=== PATIENT | female | born 1955 | race Caucasian/White ===

== ENCOUNTER 2018-11-27 14:14 | Observation (INO) ==
--- NOTE | 2018-11-27 14:17 | Emergency Department Note ---
ED Disposition Clinical Impression: Non-STEMI (non-ST elevated myocardial infarction) Disposition: Admitted As Inpatient Condition on Discharge: Fair Referrals: Provider,Referral, [Primary Care Provider] - - Critical Care Critical Care Time: Yes Attestation: On , the high probability of a clinically significant, sudden or life threatening deterioration of the following system(s) required my full and direct attention, intervention and personal management. The time I documented below is in addition to time spent performing reported procedures but includes the following listed in this critical care notation. Total Critical Care Time: 30 Vital system(s) involved:: Circulatory Failure My critical care processes included: Assessment & monitoring of V/S, Initial and Re-exams, Data Review/Interpretation, Coordinating Care, Medication Orders and management, Documentation Medical Decision Making - George Inquiry Pt receiving controlled substance: No Vital Signs: 11/27/18 14:15 11/27/18 14:27 11/27/18 14:36 Temperature 98.2 F Temperature Source Oral Pulse Rate [Right Radial] 95 H 95 H 91 H Respiratory Rate 18 18 18 Blood Pressure [Right Arm] 203/98 H 210/98 H 183/99 H Blood Pressure Mean [Right Arm] 133 135 127 Blood Pressure Source [Right Arm] Automatic Cuff Automatic Cuff Automatic Cuff Blood Pressure Position [Right Arm] Sitting Sitting Sitting 02 Sat by Pulse Oximetry 98 99 96 Oxygen Delivery Method Room Air Room Air Room Air 11/27/18 14:42 11/27/18 14:48 11/27/18 14:53 Temperature Temperature Source Pulse Rate [Right Radial] 94 H 92 H 92 H Respiratory Rate 18 18 18 Blood Pressure [Right Arm] 163/84 H 155/94 H 138/77 Blood Pressure Mean [Right Arm] 110 114 97 Blood Pressure Source [Right Arm] Automatic Cuff Automatic Cuff Automatic Cuff Blood Pressure Position [Right Arm] Sitting Sitting Sitting 02 Sat by Pulse Oximetry 96 96 96 Oxygen Delivery Method Room Air Room Air Room Air 11/27/18 15:14 Temperature Temperature Source Pulse Rate [Right Radial] 85 Respiratory Rate 18 Blood Pressure [Right Arm] 139/75 Blood Pressure Mean [Right Arm] 96 Blood Pressure Source [Right Arm] Automatic Cuff Blood Pressure Position [Right Arm] Sitting 02 Sat by Pulse Oximetry 96 Oxygen Delivery Method Room Air - Lab Data Lab Results 11/27/18 14:20: WBC 10.0, RBC 3.85 L, Hgb 11.7 L, Hct 34.3 L, MCV 89.1, MCH 30 .3, MCHC 34.0, RDW 12.7, Plt Count 323, MPV 7.7, Neut % (Auto) 60.5, Lymph % (Auto) 32.8, [place] % (Auto) 5.0, Eos % (Auto) 1.0, Baso % (Auto) 0.7, Neut # (Auto) 6.1, Lymph # (Auto) 3.3, [place] # (Auto) 0.5, Eos # (Auto) 0.1, Baso # (Auto) 0.1 11/27/18 14:20: Sodium 137, Potassium 4.5, Chloride 102, Carbon Dioxide 24, Anion Gap 15.5 H, BUN 25 H, Creatinine 1.83 H, Estimated Creat Clear 34, Estimated GFR 28 L, Est GFR ( Amer) 34 L, Glucose 297 H, Calcium 9.0, Troponin I 0.09 H Result diagrams: 11/27/18 14:20 11/27/18 14:20 Orders (Tests/Meds): ED MEDICATIONS Generic Name Dose Route Start Last Admin Trade Name Freq PRN Reason Stop Dose Admin Diphenhydramine HCl 50 mg 11/27/18 15:34 Benadryl 50mg/1ml Vial IV 11/27/18 15:35 ONCE ONE Sodium Chloride 1,000 mls @ 25 mls/hr 11/27/18 15:45 Sod Chlor 0.9% 1000ml Bag IV 12/27/18 15:44 .Q25H DEXTER Nitroglycerin 0.4 mg 11/27/18 14:26 11/27/18 14:48 Nitrostat 0.4mg Sl Tablet SL 11/28/18 14:26 0.4 mg Q5MINP PRN Administration Chest Pain Discontinued Medications Generic Name Dose Route Start Last Admin Trade Name Freq PRN Reason Stop Dose Admin Nitroglycerin 1 gm 11/27/18 15:15 11/27/18 15:27 Nitroglycerin 1 Inch Oint Udp TD 11/27/18 15:16 1 gm ONCE ONE Administration - Radiology Data #1 Image(s): Chest Image Reviewed: Yes I reviewed the patient's radiology image Preliminary Findings: Normal/NAD - ECG Data Tracing #1 EKG interpreted by Bennett Mclean MD: Rhythm: sinus Rate: 101 [place]: Left Ectopy: none Conduction: normal ST Segment Changes: Nonspecific T Wave Changes: Nonspecific Q Waves: Septal No evidence of acute ischemia or injury No prior EKGs available for comparison Prior EKG reading from ED visit 2008. No tracing available to review: EKG NSR, LAD Q'S V1,V2 C/W PREVIOUS ANTERIOR DE OF 01-10-08 - Physician Consults Physician Consulted: ROMERO Valles for Dr. Chavis Time: 15:30 Reason -: Cardiology Eval/Care Comment/Response: She will call Dr. Chavis and call back - JORDANA Score for Non-Stemi Age of Patient: 60-69 years old Heart Rate: 90-109 bpm Systolic Blood Pressure: 200 mmhg or higher Serum Creatinine: 1.60-1.99 mg/dl CHF [place] Class: I-No CHF Other Risk Factors: Elevated Cardiac Enzymes or Biomarkers Non-Stemi Risk Score: 100 Medical Decision Narrative: Pain-free after nitroglycerin. General Adult HPI - General Stated complaint: chest pain Time Seen by Provider: 11/27/18 14:16 - History of Present Illness HPI narrative: The patient is brought over by Dr. [facility]riola [facility] [employer]. She complains of chest pain that started at 12:30 PM. She took a Nesha aspirin and it went away. He returned to 2:00 PM. She says now it is almost gone again. Currently 3/10. Had some shortness of breath that resolved. No nausea or diaphoresis. Prior history of DE in 2007, got airlifted to [facility] and got a stent. No longer sees a presser automatic. Has not seen a primary care provider in a couple of years and has not taken her regular medications in over a year. States that she has hypertension and diabetes. Former smoker. Previously was seeing Alem at Dr. Arriola's office. - Related Data Home Medications Medication Instructions Recorded Confirmed No Known Home Medications 11/27/18 11/27/18 Allergies Allergy/AdvReac Type Severity Reaction Status Date / Time No Known Allergies Allergy Unverified 07/24/17 15:11 [facility] History - Hepatitis A Screen Attestation statement:: This patient has been screened for Hepatitis A risk factors. I have reviewed the patient's past medical history: Yes ROS Obtained: Yes All systems reviewed & no additional complaints - Constitutional Constitutional: Denies fever(s) - Cardiovascular Cardiovascular: Reports chest pain, Denies diaphoresis - Respiratory Respiratory: No cough, Yes dyspnea - Gastrointestinal Gastrointestingal: Denies: abdominal pain, nausea, vomiting Physical Exam - General General appearance: alert, in no apparent distress - Head Head exam: atraumatic, normocephalic - Eye Eye exam: Present: normal appearance, EOMI - ENT ENT exam: Present: mucous membranes moist - Neck Neck exam: Present: normal inspection, full ROM, trachea midline - Chest Chest inspection: Present: normal inspection, symmetric chest wall rise - Respiratory Respiratory exam: Present: normal lung sounds bilaterally. Absent: respiratory distress - Cardiovascular Cardiovascular exam: Present: regular rate, normal rhythm, normal heart sounds - Abdominal Exam Abdominal exam: Present: soft. Absent: distention, tenderness, guarding - Extremities Exam Extremities exam: Present: normal inspection. Absent: tenderness - Neurological Exam Neurological exam: Present: alert, oriented X3 - Psychiatric Psychiatric exam: Present: normal affect, normal mood - Skin Skin exam: Present: warm, dry
[2018-11-27 14:41] LABS: Basophils # 0.1 K/mm3 (0-0.2); Basophils % 0.7 % (0.1-2.0); Eosinophils # 0.1 K/mm3 (0.0-0.4); Hematocrit 34.3 % (37.0-47.0); Hemoglobin 11.7 g/dL (12.2-16.2); Lymphocytes # 3.3 K/mm3 (0.7-4.5); Lymphocytes % 32.8 % (10-50); Mean Corpuscular Hemoglobin 30.3 pg (27.0-31.2); Mean Corpuscular Volume 89.1 fl (81-99); Mean Platelet Volume 7.7 fl (7.4-10.4); Monocytes # 0.5 K/mm3 (0.1-1.0); Neutrophils # 6.1 K/mm3 (1.8-7.8); Neutrophils % 60.5 % (37.0-80.0); Platelet Count 323 K/mm3 (142-424); Red Blood Count 3.85 M/mm3 (4.20-5.40); Red Cell Distribution Width 12.7 % (11.5-17.5)
[2018-11-27 14:58] LABS: Anion Gap 15.5 mEq/L (5-15); Potassium 4.5 mmoL/L (3.5-5.1)
--- NOTE | 2018-11-27 20:49 | History & Physical Report ---
*Admission Date: 11/27/18 *Chief complaint: chest pain *History of present illness: wf who had acute onset of ant chest pain while at work at [employer] - she has hx of cad and diabetes - no recent eval - she [facility] - patient is brought over by [facility]ola [facility]. She complains of chest pain that started at 12:30 PM. She took a Nesha aspirin and it went away. He returned to 2:00 PM. She says now it is almost gone again. Currently 10/13. Had some shortness of breath that resolved. No nausea or diaphoresis. Prior history of [place] in 2007, got airlifted to [facility] and got a stent. No longer sees a tobacco grader. Has not seen a primary care provider in a couple of years and has not taken her regular medications in over a year. States that she has hypertension and diabetes. Former smoker. Previously was seeing Alem at Dr. Arriola's office. 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 [facility] History I have reviewed the patient's past medical history: Yes Medical History: Reports:: Diabetes Mellitus Type 2, Myocardial Infarction *Have you ever received a pneumonia vaccine?: No *Have you received a flu vaccine this season?: No Laterality Cases: Bilateral: Cataract Other Surgeries: Yes: Cholecystectomy, Tubal Ligation, Other (CATARACTS OU) Amputation: No Fractures: No - *Social History Educational Level: Attended High School Smoking Status: Former smoker Tobacco Type: cigarettes Smoking End Date: 6 YEARS AGO Alcohol Intake: never *Occupational Status:: employed *Travel in the last 8 weeks: None - Psychiatric History Expresses thoughts of harming self/others: None Suicide Plan Description: No Plan Family Hx:: No significant family history Review of Systems - Review of Systems Review of systems:: pertinent systems reviewed and negative unless documented below - Constitutional Denies fever(s) - Eyes Denies change in vision - ENT Denies change in voice - *Cardiovascular Reports chest pain at rest, Reports shortness of breath, Reports radiating jaw, neck or arm pain - *Respiratory Denies cough - *Gastrointestinal Denies abdominal pain - *Genitourinary Denies blood in urine - *Musculoskeletal Denies joint pain - Integumentary/Breasts Denies rash - *Neurologic Denies seizure-like activity - Psychiatric Denies anxiety Meds Home Medications Medication Instructions Recorded Confirmed Type No Known Home Medications 11/27/18 11/27/18 History Allergies Allergy/AdvReac Type Severity Reaction Status Date / Time No Known Allergies Allergy Unverified 07/24/17 15:11 Exam Vital signs and Labs for Last 24 Hours: Temp Pulse Resp BP Pulse Ox 97.8 F 79 16 134/66 97 11/27/18 19:15 11/27/18 19:15 11/27/18 19:15 11/27/18 19:15 11/27/18 19:15 Laboratory Results - last 24 hr 11/27/18 14:20: WBC 10.0, RBC 3.85 L, Hgb 11.7 L, Hct 34.3 L, MCV 89.1, MCH 30.3, MCHC 34.0, RDW 12.7, Plt Count 323, MPV 7.7, Neut % (Auto) 60.5, Lymph % (Auto) 32.8, [place] % (Auto) 5.0, Eos % (Auto) 1.0, Baso % (Auto) 0.7, Neut # (Auto) 6.1, Lymph # (Auto) 3.3, [place] # (Auto) 0.5, Eos # (Auto) 0.1, Baso # (Auto) 0.1 11/27/18 14:20: Sodium 137, Potassium 4.5, Chloride 102, Carbon Dioxide 24, Anion Gap 15.5 H, BUN 25 H, Creatinine 1.83 H, Estimated Creat Clear 34, Estimated GFR 28 L, Est GFR ( Amer) 34 L, Glucose 297 H, Calcium 9.0, Troponin I 0.09 H 11/27/18 16:22: Activated Clotting Time 244 H* 11/27/18 18:00: POC Glucose 258 H 11/27/18 20:11: POC Glucose 137 H I & O for Last 24 hours: Intake & Output 11/25/18 11/26/18 11/27/18 11/28/18 11:59 11:59 11:59 11:59 Weight 149 lb 2 oz - Constitutional no acute distress - *Routine HEENT Exam Head: Present: normocephalic Eye: Present: EOMI, PERRL ENT: Present: mucous membranes dry - *Routine Neck Exam Absent: JVD - *Routine Respiratory Exam Present: CTA bilaterally - *Routine Cardiovascular Exam Present: RRR, murmur - *Routine Abdominal Exam Present: soft - *Routine Extremities Exam Present: pulses intact - *Routine Skin Exam Present: intact - *Routine Neurological Exam Present: alert, oriented X3, CN II-XII intact - Routine Psychiatric Exam Present: normal affect Assessment and Plan (1) Non-STEMI (non-ST elevated myocardial infarction) Current visit: Yes Status: Acute Category: Medical Code(s): I21.4 - Non-ST elevation (NSTEMI) myocardial infarction (2) Diabetes mellitus Current visit: Yes Status: Acute Qualifiers: Diabetes mellitus type: type 2 Diabetes mellitus superintendent container terminal insulin use: with superintendent container terminal use Diabetes mellitus complication status: with unspecified complications Qualified Code(s): E11.8 - Type 2 diabetes mellitus with unspecified complications; Z79.4 - FDC (current) use of insulin Category: Medical Code(s): E11.9 - Type 2 diabetes mellitus without complications (3) Hypertension Current visit: Yes Status: Acute Qualifiers: Hypertension type: essential hypertension Qualified Code(s): I10 - Essential (primary) hypertension Category: Medical Code(s): I10 - Essential (primary) hypertension (4) Hyperlipidemia associated with type 2 diabetes mellitus Current visit: Yes Status: Acute Category: Medical Code(s): E11.69 - Type 2 diabetes mellitus with other specified complication; E78.5 - Hyperlipidemia, unspecified (5) Anemia Current visit: Yes Status: Acute Qualifiers: Anemia type: unspecified type Qualified Code(s): D64.9 - Anemia, unspecified Category: Medical Code(s): D64.9 - Anemia, unspecified (6) CKD stage 3 due to type 2 diabetes mellitus Current visit: Yes Status: Acute Category: Medical Code(s): E11.22 - Type 2 diabetes mellitus with diabetic chronic kidney disease; N18.3 - Chronic kidney disease, stage 3 (moderate)
--- NOTE | 2018-11-28 08:03 | Consult Report ---
History of Present Illness Consult date: 11/28/18 Consult reason: chest pain Chief complaint: chest pain Additional Medical History:: 1. DM, treated for 15 yrs 2. Ex-smoker, stopped 3 yrs ago 3. HTN 4. Hyperlipidemia 5. Coronary artery disease A. Previous myocardial infarction, 2007, airlifted to [facility] with subsequent cardiac cath and stenting. B. Non-ST elevation [place], 11/2018 with subsequent coronary stenting of circumflex artery. Remaining LAD and RCA lesions in the moderate to severe range with recommendation for medical therapy. Left ventricular ejection fraction normal. Cardiac cath results: ANGIOGRAPHIC RESULTS: 1. The left main artery has a distal smooth 20% stenosis 2. The left anterior descending artery has an ostial stent 20% stenosis followed by a proximal stent which has mild to moderate diffuse 30% concentric in-stent restenosis. There is an additional hazy 50% mid LAD stenosis. 3. The circumflex artery is a nondominant yet still large vessel giving rise to a very large first obtuse marginal artery. Proximally there is a 50% stenosis which extends into a large first obtuse marginal artery. Distal to the first obtuse marginal artery the true circumflex artery has a greater than 90% stenosis accompanied by ROXANE II flow 4. The right coronary artery is a large dominant vessel and has mild luminal irregularities in the proximal mid segment. The large posterior descending artery has mild 10% luminal irregularities. A moderate sized posterior lateral ventricular branch has a proximal 40% and a mid vessel 70% stenosis at a 2.25 mm vessel 5. The DIETRICH ventriculogram reveals normal 65% 6. The left ventricular end-diastolic pressure 15 mmHg IMPRESSION: 1. Acute coronary syndrome in which the circumflex artery was the likely culprit with successful stenting of the proximal circumflex artery extending into the large first obtuse marginal artery reducing severe disease to 0% with successful bifurcating stent off the proximal circumflex artery into the true circumflex artery reducing this critical stenosis to 0% 2. Persistent moderate stenosis in the mid LAD 3. Persistent moderate to severe stenosis and a moderate-sized posterior lateral branch 4. Normal ejection fraction 5. Mildly elevated LVEDP PLAN: 1. Brilinta and aspirin 2. Avoidance of tobacco products 3. LDL less than 55 4. Cardiac rehabilitation 5. Maximize antianginal medications. Should patient continue with recalcitrant angina I would consider stenting the posterior lateral branch and possibly performing FFR to the LAD however I don't believe either these lesions are producing any symptoms and should respond favorably to medical management 6. Chronic kidney disease, stage IIIb with creatinine 1.8 and GFR of 34, 11/2018 7. History of medication noncompliance History of present illness: 63-year-old white female with history of diabetes, hypertension, hyperlipidemia and ex-smoker was admitted to the hospital for chest pain. Patient states acute onset of chest discomfort about 12:30 PM while at work today. Patient took an aspirin with resolution of symptoms thereafter but recurrence approximately 2 PM. Patient was brought to the emergency department for further evaluation. Patient was felt to be having acute coronary syndrome and was taken urgently to the cardiac Foreign Exchange Trader. She did receive coronary stenting to the circumflex artery which was felt to be the culprit lesion. She has remaining disease in the LAD and right coronary artery which will be treated medically for now unless patient develops recurrent angina. This a.m. the patient is without chest pain states she is feeling better. [facility] History Medical History: Reports:: Diabetes Mellitus Type 2, Myocardial Infarction *Have you ever received a pneumonia vaccine?: No *Have you received a flu vaccine this season?: No Laterality Cases: Bilateral: Cataract Other Surgeries: Yes: Cholecystectomy, Tubal Ligation, Other (CATARACTS OU) Amputation: No Fractures: No - *Social History Educational Level: Attended High School Smoking Status: Former smoker Tobacco Type: cigarettes Smoking End Date: 6 YEARS AGO Alcohol Intake: never *Occupational Status:: employed *Travel in the last 8 weeks: None - Psychiatric History Expresses thoughts of harming self/others: None Suicide Plan Description: No Plan Family Hx:: No significant family history Meds Home Medications Medication Instructions Recorded Confirmed Type No Known Home Medications 11/27/18 11/27/18 History Allergies Allergy/AdvReac Type Severity Reaction Status Date / Time No Known Allergies Allergy Unverified 07/24/17 15:11 Review of Systems - *Cardiovascular Reports chest pain, Reports shortness of breath with activity - *Respiratory Reports shortness of breath with activity, Denies cough - *Gastrointestinal Denies abdominal pain, Denies loose stools - *Genitourinary Denies blood in urine - *Musculoskeletal Denies joint pain, Denies back pain Exam Vital signs and Labs for Last 24 Hours: Temp Pulse Resp BP Pulse Ox 98.4 F 79 14 119/67 97 11/28/18 00:00 11/28/18 07:41 11/28/18 06:00 11/28/18 06:00 11/28/18 07:41 Laboratory Results - last 24 hr 11/27/18 14:20: WBC 10.0, RBC 3.85 L, Hgb 11.7 L, Hct 34.3 L, MCV 89.1, MCH 30.3, MCHC 34.0, RDW 12.7, Plt Count 323, MPV 7.7, Neut % (Auto) 60.5, Lymph % (Auto) 32.8, [place] % (Auto) 5.0, Eos % (Auto) 1.0, Baso % (Auto) 0.7, Neut # (Auto) 6.1, Lymph # (Auto) 3.3, [place] # (Auto) 0.5, Eos # (Auto) 0.1, Baso # (Auto) 0.1 11/27/18 14:20: Sodium 137, Potassium 4.5, Chloride 102, Carbon Dioxide 24, Anion Gap 15.5 H, BUN 25 H, Creatinine 1.83 H, Estimated Creat Clear 34, Estimated GFR 28 L, Est GFR ( Amer) 34 L, Glucose 297 H, Calcium 9.0, Troponin I 0.09 H 11/27/18 16:22: Activated Clotting Time 244 H* 11/27/18 18:00: POC Glucose 258 H 11/27/18 20:11: POC Glucose 137 H 11/28/18 05:30: POC Glucose 180 H I & O for Last 24 hours: Intake & Output 11/25/18 11/26/18 11/27/18 11/28/18 11:59 11:59 11:59 11:59 Intake Total 1197 / 1197 Balance 1197 / 1197 Weight 150 lb 1 oz - *Routine HEENT Exam Head: Present: normocephalic Eye: Present: EOMI, PERRL ENT: Present: mucous membranes moist - *Routine Neck Exam Present: supple. Absent: JVD, carotid bruit - *Routine Respiratory Exam Present: CTA bilaterally. Absent: accessory muscle use, rales, rhonchi, wheezes - *Routine Cardiovascular Exam Present: RRR. Absent: murmur, gallop, rubs - *Routine Abdominal Exam Present: soft. Absent: tenderness, distended, guarding - *Routine Extremities Exam Absent: edema, calf tenderness - *Routine Neurological Exam Present: alert, oriented X3, moving all extremities Assessment and Plan (1) Non-STEMI (non-ST elevated myocardial infarction) Current visit: Yes Status: Acute Category: Medical Code(s): I21.4 - Non-ST elevation (NSTEMI) myocardial infarction (2) Diabetes mellitus Current visit: Yes Status: Acute Category: Medical Code(s): E11.9 - Type 2 diabetes mellitus without complications (3) Hypertension Current visit: Yes Status: Acute Category: Medical Code(s): I10 - Essential (primary) hypertension (4) Hyperlipidemia associated with type 2 diabetes mellitus Current visit: Yes Status: Acute Category: Medical Code(s): E11.69 - Type 2 diabetes mellitus with other specified complication; E78.5 - Hyperlipidemia, unspecified (5) Coronary artery disease Current visit: Yes Status: Acute Category: Medical Code(s): I25.10 - Atherosclerotic heart disease of [place] coronary artery without angina pectoris (6) History of coronary artery stent placement Current visit: Yes Status: Acute Category: Surgical Code(s): Z95.5 - Presence of coronary angioplasty implant and graft (7) History of medication noncompliance Current visit: Yes Status: Acute Category: Medical Code(s): Z91.14 - Patient's other noncompliance with medication regimen (8) CKD stage 3 due to type 2 diabetes mellitus Current visit: Yes Status: Acute Category: Medical Code(s): E11.22 - Type 2 diabetes mellitus with diabetic chronic kidney disease; N18.3 - Chronic kidney disease, stage 3 (moderate) - Assessment and plan all Dx Assessment and Plan for all problems:: 1. Continue aspirin 81 mg daily and Brilinta 90 mg twice daily for coronary artery stenting. 2. Continue atorvastatin 40 mg daily for hyperlipidemia 3. Would add low-dose ARB (losartan 25 mg daily) for history of hypertension, current NSTEMI and chronic kidney disease in this diabetic patient. 4. Patient could be discharged home later today with follow-up in our office early next week to discuss return to work status. Recommend should be off work until follow-up next week.
--- NOTE | 2018-11-28 08:33 | Pharmacy Consult Notes ---
[facility] Pharmacy VTE Monitoring - Patient Demographics Admission date: 11/27/18 Report Date: 11/28/18 Time: 08:33 Allergies/Adverse Reactions: Patient Allergies No Known Allergies Allergy (Unverified 07/24/17 15:11) Height: 1.63 m Weight: 68.067 kg Patient Problems: Current Active Problems (Updated 11/28/18 @ 08:17 by SAJI Mariscal) Non-STEMI (non-ST elevated myocardial infarction) (Acute) Diabetes mellitus (Acute) Hypertension (Acute) Hyperlipidemia associated with type 2 diabetes mellitus (Acute) Coronary artery disease (Acute) History of coronary artery stent placement (Acute) History of medication noncompliance (Acute) CKD stage 3 due to type 2 diabetes mellitus (Acute) - VTE Risk Labs: VTE Related Lab Results Hgb 11.7 g/dL (12.2-16.2) L 11/27/18 14:20 Hct 34.3 % (37.0-47.0) L 11/27/18 14:20 Plt Count 323 K/mm3 (142-424) 11/27/18 14:20 BUN 25 mg/dL (7-18) H 11/27/18 14:20 Creatinine 1.83 mg/dL (0.55-1.02) H 11/27/18 14:20 Estimated Creat Clear 34 mL/min (50-200) 11/27/18 14:20 Was VTE Risk Assessment Performed: Yes VTE Score: 3 VTE Risk Level: Low Risk Clinical Trial Participant: No - Prophylaxis VTE Prophylaxis Ordered?: Yes Types of VTE Prophylaxis: TEDS Knee High
--- NOTE | 2018-11-28 10:17 | Discharge Summary ---
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 Arriola from [facility] where she works. She complains of chest pain that started at 12:30 PM. She took a Nesha aspirin and it went away. He returned to 2:00 PM. She says now it is almost gone again. Currently 10/13. Had some shortness of breath that resolved. No nausea or diaphoresis. Prior history of PR in 2007, got airlifted to [facility] and got a stent. 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 Has not seen a primary care provider in a couple of years and has not taken her regular medications in over a year. States that she has hypertension and diabetes. Former smoker. Previously was seeing Alem at Dr. Arriola's office. she was seen by card and taken to labor relations analyst Hospital Course Hospital Course: pt had acute coronory syndrome and went to labor relations analyst -ICATION FOR TEST: 1. Acute coronary syndrome 2. Coronary artery disease Clinical history: Patient presents to the emergency room via the practicing emergency room physicians car. The physician was rounding in a local long term and patient started having severe chest pain. Physician brought patient to the [facility] with the presumptive diagnosis of acute coronary syndrome. Patient was having classic angina pectoris with a nondiagnostic EKG troponin. Because of her ongoing chest pain she was taken to the [facility] as acute coronary syndrome Informed consent was obtained prior to the procedure. COMPLICATIONS: None ESTIMATED BLOOD LOSS: Less than 10 ml. TECHNIQUE: One percent lidocaine used to anesthetize the right anterior aspect of the wrist. The right radial artery was accessed via the Seldinger technique. A 6 Japanese sheath was placed in the right radial artery. 2.5 mg of verapamil, 800 mcg of nitroglycerin, 1mg Lidocaine and 5000 U Heparin were given through the arterial sheath. The trap catheter was also used to perform left heart catheterization, left ventriculogram and selective coronary angiogram. At the end of the procedure a JL 3.5 guide catheter was used intubate the left main artery and additional heparin was administered giving an ACT greater than 242 seconds. An additional 2000 units of heparin was administered along with Brilinta 180 mg. A choice PT extra-support wire was placed in the true circumflex artery and a 2 mm x 18 mm resolute Cove stent was deployed at 13 kd reducing the critical stenosis in the circumflex artery 0%. The wire was pulled back and placed in the large first obtuse regional artery were a 2.5 mm balloon was used to predilate the side struts of the stent. This was followed by a 3 mm x 22 mm resolute Fareed stent which was deployed at 20 kd originating in the proximal circumflex artery into the first obtuse marginal artery. There are excellent angiographic results with ROXANE III flow down the obtuse marginal artery before and after the procedure and improvement from ROXANE II flow down the true cervix artery improved to ROXANE-3 flow after bifurcating stenting. After achieving excellent angiographic results apparatus was removed the sheath was removed good hemostasis was achieved using TR banding patient transferred the postop holding are stable condition NGIOGRAPHIC RESULTS: 1. The left main artery has a distal smooth 20% stenosis 2. The left anterior descending artery has an ostial stent 20% stenosis followed by a proximal stent which has mild to moderate diffuse 30% concentric in-stent restenosis. There is an additional hazy 50% mid LAD stenosis. 3. The circumflex artery is a nondominant yet still large vessel giving rise to a very large first obtuse marginal artery. Proximally there is a 50% stenosis which extends into a large first obtuse marginal artery. Distal to the first obtuse marginal artery the true circumflex artery has a greater than 90% stenosis accompanied by ROXANE II flow 4. The right coronary artery is a large dominant vessel and has mild luminal irregularities in the proximal mid segment. The large posterior descending artery has mild 10% luminal irregularities. A moderate sized posterior lateral ventricular branch has a proximal 40% and a mid vessel 70% stenosis at a 2.25 mm vessel 5. The DIETRICH ventriculogram reveals normal 65% 6. The left ventricular end-diastolic pressure 15 mmHg IMPRESSION: 1. Acute coronary syndrome in which the circumflex artery was the likely culprit with successful stenting of the proximal circumflex artery extending into the large first obtuse marginal artery reducing severe disease to 0% with successful bifurcating stent off the proximal circumflex artery into the true circumflex artery reducing this critical stenosis to 0% 2. Persistent moderate stenosis in the mid LAD 3. Persistent moderate to severe stenosis and a moderate-sized posterior lateral branch 4. Normal ejection fraction 5. Mildly elevated LVEDP PLAN: 1. Brilinta and aspirin 2. Avoidance of tobacco products 3. LDL less than 55 4. Cardiac rehabilitation 5. Maximize antianginal medications. Should patient continue with recalcitrant angina I would consider stenting the posterior lateral branch and possibly performing FFR to the LAD however I don't believe either these lesions are producing any symptoms and should respond favorably to medical management pt has did well and will be d/c and followed by pcp and chuy Holm, treated for 15 yrs 2. Ex-smoker, stopped 3 yrs ago 3. HTN 4. Hyperlipidemia 5. Coronary artery disease A. Previous myocardial infarction, 2007, airlifted to [facility] with subsequent cardiac cath and stenting. B. Non-ST elevation PR, 11/2018 with subsequent coronary stenting of circumflex artery. Remaining LAD and RCA lesions in the moderate to severe range with recommendation for medical therapy. Left ventricular ejection fraction normal. Cardiac cath results: ANGIOGRAPHIC RESULTS: 1. The left main artery has a distal smooth 20% stenosis 2. The left anterior descending artery has an ostial stent 20% stenosis followed by a proximal stent which has mild to moderate diffuse 30% concentric in-stent restenosis. There is an additional hazy 50% mid LAD stenosis. 3. The circumflex artery is a nondominant yet still large vessel giving rise to a very large first obtuse marginal artery. Proximally there is a 50% stenosis which extends into a large first obtuse marginal artery. Distal to the first obtuse marginal artery the true circumflex artery has a greater than 90% stenosis accompanied by ROXANE II flow 4. The right coronary artery is a large dominant vessel and has mild luminal irregularities in the proximal mid segment. The large posterior descending artery has mild 10% luminal irregularities. A moderate sized posterior lateral ventricular branch has a proximal 40% and a mid vessel 70% stenosis at a 2.25 mm vessel 5. The DIETRICH ventriculogram reveals normal 65% 6. The left ventricular end-diastolic pressure 15 mmHg barrow coronary syndrome in which the circumflex artery was the likely culprit with successful stenting of the proximal circumflex artery extending into the large first obtuse marginal artery reducing severe disease to 0% with successful bifurcating stent off the proximal circumflex artery into the true circumflex artery reducing this critical stenosis to 0% 2. Persistent moderate stenosis in the mid LAD 3. Persistent moderate to severe stenosis and a moderate-sized posterior lateral branch 4. Normal ejection fraction 5. Mildly elevated LVEDP PLAN: 1. Brilinta and aspirin 2. Avoidance of tobacco products 3. LDL less than 55 4. Cardiac rehabilitation 5. Maximize antianginal medications. Should patient continue with recalcitrant angina I would consider stenting the posterior lateral branch and possibly performing FFR to the LAD however I don't believe either these lesions are producing any symptoms and should respond favorably to medical management 6. Chronic kidney disease, stage IIIb with creatinine 1.8 and GFR of 34, 11/2018 7. History of medication noncompliance History of present illness: 63-year-old white female with history of diabetes, hypertension, hyperlipidemia and ex-smoker was admitted to the hospital for chest pain. Patient states acute onset of chest discomfort about 12:30 PM while at work today. Patient took an aspirin with resolution of symptoms thereafter but recurrence approximately 2 PM. Patient was brought to the emergency department for further evaluation. Patient was felt to be having acute coronary syndrome and was taken urgently to the cardiac [facility]. She did receive coronary stenting to the circumflex artery which was felt to be the culprit lesion. She has remaining disease in the LAD and right coronary artery which will be treated medically for now unless patient develops recurrent angina. This a.m. the patient is without chest pain states she is feeling better. Non-STEMI (non-ST elevated myocardial infarction) Current visit: Yes Status: Acute Category: Medical Code(s): I21.4 - Non-ST elevation (NSTEMI) myocardial infarction (2) Diabetes mellitus Current visit: Yes Status: Acute Category: Medical Code(s): E11.9 - Type 2 diabetes mellitus without complications (3) Hypertension Current visit: Yes Status: Acute Category: Medical Code(s): I10 - Essential (primary) hypertension (4) Hyperlipidemia associated with type 2 diabetes mellitus Current visit: Yes Status: Acute Category: Medical Code(s): E11.69 - Type 2 diabetes mellitus with other specified complication; E78.5 - Hyperlipidemia, unspecified (5) Coronary artery disease Current visit: Yes Status: Acute Category: Medical Code(s): I25.10 - Atherosclerotic heart disease of [place] coronary artery without angina pectoris (6) History of coronary artery stent placement Current visit: Yes Status: Acute Category: Surgical Code(s): Z95.5 - Presence of coronary angioplasty implant and graft (7) History of medication noncompliance Current visit: Yes Status: Acute Category: Medical Code(s): Z91.14 - Patient's other noncompliance with medication regimen (8) CKD stage 3 due to type 2 diabetes mellitus Current visit: Yes Status: Acute Category: Medical Code(s): E11.22 - Type 2 diabetes mellitus with diabetic chronic kidney disease; N18.3 - Chronic kidney disease, stage 3 (moderate) - Assessment and plan all Dx Assessment and Plan for all problems:: 1. Continue aspirin 81 mg daily and Brilinta 90 mg twice daily for coronary artery stenting. 2. Continue atorvastatin 40 mg daily for hyperlipidemia 3. Would add low-dose ARB (losartan 25 mg daily) for history of hypertension, current NSTEMI and chronic kidney disease in this diabetic patient. 4. Patient could be discharged home later today with follow-up in our office early next week to discuss return to work status. Recommend should be off work until follow-up next week. Objective Vital signs: Temp Pulse Resp BP Pulse Ox 98.8 F 87 16 148/84 H 98 11/28/18 08:00 11/28/18 10:00 11/28/18 10:00 11/28/18 10:00 11/28/18 10:00 no acute distress - *Routine HEENT Exam Head: Present: normocephalic Eye: Present: EOMI, PERRL ENT: Present: mucous membranes dry - *Routine Neck Exam Present: supple - *Routine Respiratory Exam Present: CTA bilaterally - *Routine Cardiovascular Exam Present: RRR, murmur, S4 - *Routine Abdominal Exam Present: soft - *Routine Extremities Exam Absent: Michelle's sign - *Routine Skin Exam Present: intact - *Routine Neurological Exam Present: alert, oriented X3, CN II-XII intact - Routine Psychiatric Exam Present: normal affect Results Labs on day of discharge: Labs from last 24 hours 11/28/18 11/27/18 11/27/18 05:30 20:11 18:00 WBC RBC Hgb Hct MCV MCH MCHC RDW Plt Count MPV Neut % (Auto) Lymph % (Auto) [place] % (Auto) Eos % (Auto) Baso % (Auto) Neut # (Auto) Lymph # (Auto) [place]ance # (Auto) Eos # (Auto) Baso # (Auto) Activated Clotting Time Sodium Potassium Chloride Carbon Dioxide Anion Gap BUN Creatinine Estimated Creat Clear Estimated GFR Est GFR ( Amer) Glucose POC Glucose 180 H 137 H 258 H Calcium Troponin I 11/27/18 11/27/18 11/27/18 16:22 14:20 14:20 WBC 10.0 RBC 3.85 L Hgb 11.7 L Hct 34.3 L MCV 89.1 MCH 30.3 MCHC 34.0 RDW 12.7 Plt Count 323 MPV 7.7 Neut % (Auto) 60.5 Lymph % (Auto) 32.8 Nance % (Auto) 5.0 Eos % (Auto) 1.0 Baso % (Auto) 0.7 Neut # (Auto) 6.1 Lymph # (Auto) 3.3 Nance # (Auto) 0.5 Eos # (Auto) 0.1 Baso # (Auto) 0.1 Activated Clotting Time 244 H* Sodium 137 Potassium 4.5 Chloride 102 Carbon Dioxide 24 Anion Gap 15.5 H BUN 25 H Creatinine 1.83 H Estimated Creat Clear 34 Estimated GFR 28 L Est GFR ( Amer) 34 L Glucose 297 H POC Glucose Calcium 9.0 Troponin I 0.09 H DS: Diagnosis - Discharge Diagnosis (1) Non-STEMI (non-ST elevated myocardial infarction) Status: Acute (2) Diabetes mellitus Status: Acute (3) Hypertension Status: Acute (4) Hyperlipidemia associated with type 2 diabetes mellitus Status: Acute (5) Anemia Status: Acute (6) CKD stage 3 due to type 2 diabetes mellitus Status: Acute Discharge Plan - Patient Discharge Instructions ACTIVITY: Continue current activity DIET: continue same diet - Follow up Plan Follow up with: Provider,MD Patrick [Primary Care Provider] - Hola Chavis MD [Staff Physician] - Disposition: Home, Self-Alf Medications: Home Medications Medication Instructions Recorded Confirmed Type Aspirin [Aspirin 81mg EC Tab] 81 mg PO DAILY #90 tablet. 11/28/18 Rx Atorvastatin Calcium [Lipitor 40mg 40 mg PO HS #90 tab 11/28/18 Rx Tablet] Losartan Potassium 25 mg PO DAILY #90 tab 11/28/18 Rx Ticagrelor [Brilinta 90mg Tablet] 90 mg PO BID #180 tab 11/28/18 Rx Prescriptions/Medication Reconciliation: New Ticagrelor [Brilinta 90mg Tablet] 90 mg PO BID #180 tab Atorvastatin Calcium [Lipitor 40mg Tablet] 40 mg PO HS #90 tab Losartan Potassium 25 mg PO DAILY #90 tab Aspirin [Aspirin 81mg EC Tab] 81 mg PO DAILY #90 tablet.
--- NOTE | 2018-11-28 12:37 | Cardiology Report ---
PROCEDURE: 2-D M-mode and color Doppler study INDICATIONS FOR THE TEST: Chest pain+ COPD Heart Murmur Tobacco Smoking Palpitations Fatigue Syncope Edema Hypertension Diabetes Mellitus+ Rheumatic Fever SOB CURRY Obesity Hyperlipidemia Family History HD Additional History CAD, hx of [place] 2007 PATIENT INFORMATION HEIGHT: 64 WEIGHT: 149 GENDER: Female B/P: 163/84 2-D/M-MODE INTERPRETATION: 2-D MEASUREMENTS OBSERVED VALUES IN CMS Right Ventricular Dimension (RVDd) 2.3 Interventricular Septum (Thickness)(IVsd) 1.2 Left Ventricular Internal Dimensions(LVIDd) 3.7 Left Ventricular Posterior Wall (Thickness)(LVPWd) 1.1 Aortic Root 3.0 Aortic Cusp Separation 2.1 Left Atrial Dimensions (LAD) 3.1 2D 1. Left atrium is normal size, left ventricle is normal size, left ventricle wall thickness is upper limit of normal, there is preserved left ventricular systolic function, visually estimated ejection fraction 50-55%, the left ventricular apex is moderately hypokinetic. 2. The right atrium and right ventricle are normal size and contractility. 3. The aortic valve is thickened and calcified leaflet continue to display mobility. 4. The mitral and tricuspid valve leaflets are minimally thickened 5. The pulmonic valve is poorly visualized. 6. No significant pericardial effusion noted. DOPPLER INTERROGATION: Doppler interrogation of the aortic, mitral and tricuspid valvular presence of mild mitral and tricuspid regurgitation, tricuspid regurgitation jet velocity is inadequate for calculation of the right ventricular systolic pressure, grade 1 diastolic dysfunction seen without tissue Doppler evidence of raised left atrial pressure. Inferior vena cava is not well visualized. CONCLUSION: 1. Normal left ventricular size, preserved left ventricular systolic function, visually estimated ejection fraction 50-55% with segmental wall motion abnormality described above, grade 1 diastolic dysfunction seen without tissue Doppler evidence of raised left atrial pressure. 2. Thickened and calcified aortic valve without aortic stenosis aortic insufficiency. 3. Mild mitral and tricuspid regurgitation 4. No significant pericardial effusion noted.
== END 2018-11-28 11:37 | disposition home or self-care (01) ==
LOC: ER 14:14 → 2ND 15:51 → SDC 15:51 → 2ND 16:37
PROVIDERS: ADMIT Emergency Medicine; ATTEND Emergency Medicine
CPT/HCPCS: 71020; 71046; 80048; 82962; 84484; 85025; 85347; 92929; 92941; 93005; 93306; 93458; 99152; 99153; 99284; C1725; C1769; C1876; C9601; C9606; G0378; J1644; J2405; Q9967

== ENCOUNTER → 2018-12-09 12:09 | Outpatient (CLI) | payer OTHER, SELFPAY ==
[2018-12-09 12:42] LABS: Basophils # 0.1 K/mm3 (0-0.2); Basophils % 0.6 % (0.1-2.0); Eosinophils # 0.2 K/mm3 (0.0-0.4); Eosinophils % 1.4 % (0.1-12.0); Hematocrit 34.2 % (37.0-47.0); Hemoglobin 11.7 g/dL (12.2-16.2); Lymphocytes # 2.9 K/mm3 (0.7-4.5); Lymphocytes % 26.7 % (10-50); Mean Corpuscular HGB Conc 34.1 g/dL (31.8-35.4); Mean Corpuscular Hemoglobin 29.3 pg (27.0-31.2); Mean Platelet Volume 8.2 fl (7.4-10.4); Monocytes # 0.6 K/mm3 (0.1-1.0); Monocytes % 5.3 % (1.7-9.3); Neutrophils # 7.2 K/mm3 (1.8-7.8); Neutrophils % 66.1 % (37.0-80.0); Platelet Count 378 K/mm3 (142-424); Red Blood Count 3.98 M/mm3 (4.20-5.40); Red Cell Distribution Width 12.5 % (11.5-17.5); White Blood Count 10.9 K/mm3 (4.8-10.8)
[2018-12-09 13:39] LABS: Anion Gap 13.3 mEq/L (5-15); Blood Urea Nitrogen 17 mg/dL (7-18); Carbon Dioxide 27 mmol/L (21.0-32.0); Chloride 102 mmol/L (98-107); Creatinine,Serum 1.27 mg/dL (0.55-1.02); Estimated Glomerular Filt Rate 42 ml/min (>60); GFR (African American) 51 ML/MIN (>60); Glucose 264 mg/dL (74-106); Potassium 5.3 mmoL/L (3.5-5.1); Sodium 137 mmol/L (136-145)
== END ==
PROVIDERS: Visit Provider Internal Medicine
DX: I25.10 Atherosclerotic heart disease of native coronary artery without angina pectoris (principal); I10 Essential (primary) hypertension; E78.2 Mixed hyperlipidemia
CPT/HCPCS: 36415; 80048; 85025

== ENCOUNTER → 2019-04-23 14:02 | Outpatient (CLI) | payer OTHER, SELFPAY ==
[2019-04-23 14:04] LABS: MANUAL DIFFERENTIAL MANUAL DIFFERENTIAL (MANUAL DIFF)
[2019-04-23 14:37] LABS: Basophils # 0.1 K/mm3 (0-0.2); Basophils % 0.6 % (0.1-2.0); Eosinophils # 0.1 K/mm3 (0.0-0.4); Eosinophils % 0.9 % (0.1-12.0); Hematocrit 35.4 % (37.0-47.0); Hemoglobin 11.5 g/dL (12.2-16.2); Lymphocytes # 3.8 K/mm3 (0.7-4.5); Lymphocytes % 30.7 % (10-50); Mean Corpuscular HGB Conc 32.4 g/dL (31.8-35.4); Mean Corpuscular Hemoglobin 29.3 pg (27.0-31.2); Mean Corpuscular Volume 90.5 fl (81-99); Monocytes # 0.7 K/mm3 (0.1-1.0); Monocytes % 5.3 % (1.7-9.3); Neutrophils # 7.7 K/mm3 (1.8-7.8); Neutrophils % 62.5 % (37.0-80.0); Platelet Count 315 K/mm3 (142-424); Red Blood Count 3.92 M/mm3 (4.20-5.40); Red Cell Distribution Width 12.5 % (11.5-17.5); White Blood Count 12.3 K/mm3 (4.8-10.8)
[2019-04-23 15:20] LABS: Alanine Aminotransferase 37 U/L (12-78); Albumin Level 3.8 gm/dL (3.4-5.0); Albumin/Globulin Ratio 1.1 (1.1-1.8); Alkaline Phosphatase 135 U/L (46-116); Anion Gap 17.5 mEq/L (5-15); Aspartate Amino Transferase 22 U/L (15-37); Bilirubin,Total 1.6 mg/dL (0.2-1.0); Blood Urea Nitrogen 23 mg/dL (7-18); Calcium 9.4 mg/dL (8.5-10.1); Carbon Dioxide 24 mmol/L (21.0-32.0); Chloride 101 mmol/L (98-107); Chol/HDL Ratio 2.1 (1-3.5); Cholesterol 136 mg/dL (140-200); Creatinine,Serum 1.61 mg/dL (0.55-1.02); Estimated Glomerular Filt Rate 32 ml/min (>60); GFR (African American) 39 ML/MIN (>60); Globulin 3.4 gm/dl (1.3-3.2); Glucose 300 mg/dL (74-106); HDL Cholesterol 66 mg/dL (29-89); LDL Cholesterol 38 mg/dL (0-130); Potassium 5.5 mmoL/L (3.5-5.1); Sodium 137 mmol/L (136-145); T4 (Thyroxine) 6.6 ug/dl (4.7-13.3); Thyroid Stimulating Hormone 21.41 uIU/ml (0.358-3.740); Total Protein,Serum 7.2 gm/dL (6.4-8.2); Triglycerides 160 mg/dL (30-200); VLDL Cholesterol 32 mg/dL (0-40)
[2019-04-23 15:38] LABS: Hemoglobin A1C 12.6 % (0.0-7.0)
[2019-04-23 15:58] LABS: Lymphocytes % 32 % (10-50); Monocytes % 3 % (2-9); Neutrophils % 65 % (42-76); Platelet Estimate Normal; RBC Morphology Normal; Total Cells Counted 100
[2019-04-25 06:23] LABS: Vitamin D 25 Hydroxy 19.1 ng/mL (30.0-100.0)
[2019-04-25 16:53] LABS: Microalbumin, Urine 8.8 ug/mL (Not Estab.)
== END ==
PROVIDERS: Visit Provider Physician Assistant
DX: E11.69 Type 2 diabetes mellitus with other specified complication (principal); E11.22 Type 2 diabetes mellitus with diabetic chronic kidney disease; Z79.84 Long term (current) use of oral hypoglycemic drugs; E78.5 Hyperlipidemia, unspecified; N18.3 Chronic kidney disease, stage 3 (moderate); E55.9 Vitamin D deficiency, unspecified
CPT/HCPCS: 80053; 80061; 82043; 82652; 83036; 84436; 84443; 85007; 85014; 85018; 85048; 85049

== ENCOUNTER → 2019-05-13 09:56 | Outpatient (CLI) | payer OTHER, SELFPAY | PROVIDERS: PCP Emergency Medicine; Visit Provider Physician Assistant | DX: E11.9 Type 2 diabetes mellitus without complications (principal); Z79.84 Long term (current) use of oral hypoglycemic drugs | CPT/HCPCS: 97802 ==

== ENCOUNTER → 2019-05-13 11:04 | Outpatient (CLI) | payer OTHER, SELFPAY ==
[2019-05-13 12:33] LABS: Alanine Aminotransferase 20 U/L (12-78); Albumin Level 3.5 gm/dL (3.4-5.0); Alkaline Phosphatase 126 U/L (46-116); Aspartate Amino Transferase 19 U/L (15-37); Bilirubin,Direct 0.3 mg/dL (0.0-0.2); Bilirubin,Indirect 1.2 mg/dL (0.0-0.9); Bilirubin,Total 1.5 mg/dL (0.2-1.0); Chol/HDL Ratio 1.9 (1-3.5); Cholesterol 116 mg/dL (140-200); HDL Cholesterol 61 mg/dL (29-89); LDL Cholesterol 28 mg/dL (0-130); Total Protein,Serum 6.9 gm/dL (6.4-8.2); Triglycerides 133 mg/dL (30-200); VLDL Cholesterol 27 mg/dL (0-40)
[2019-05-13 12:51] LABS: Ferritin 121 ng/mL (8-388)
[2019-05-13 14:06] LABS: Lactate Dehydrogenase 207 U/L (82-234)
[2019-05-14 08:13] LABS: Iron 43 ug/dL (27-139); UIBC 233 ug/dL (118-369)
[2019-05-14 11:43] LABS: Iron Saturation 16 % (15-55)
[2019-05-14 11:44] LABS: Haptoglobin 259 mg/dL (34-200)
== END ==
PROVIDERS: Physician Assistant; Visit Provider Physician Assistant
DX: E11.22 Type 2 diabetes mellitus with diabetic chronic kidney disease (principal); E11.69 Type 2 diabetes mellitus with other specified complication; E78.2 Mixed hyperlipidemia; E78.5 Hyperlipidemia, unspecified; I10 Essential (primary) hypertension; I21.4 Non-ST elevation (NSTEMI) myocardial infarction; I25.10 Atherosclerotic heart disease of native coronary artery without angina pectoris; N18.3 Chronic kidney disease, stage 3 (moderate); D64.9 Anemia, unspecified; R17 Unspecified jaundice
CPT/HCPCS: 36415; 80061; 80076; 82728; 83010; 83540; 83550; 83615

== ENCOUNTER → 2019-07-10 16:40 | Outpatient (CLI) | payer OTHER, SELFPAY ==
[2019-07-10 17:23] LABS: Basophils % 0.4 % (0.1-2.0); Eosinophils # 0.1 K/mm3 (0.0-0.4); Eosinophils % 0.8 % (0.1-12.0); Hematocrit 32.3 % (37.0-47.0); Hemoglobin 10.1 g/dL (12.2-16.2); Lymphocytes % 18.5 % (10-50); Mean Corpuscular HGB Conc 31.2 g/dL (31.8-35.4); Mean Corpuscular Hemoglobin 29.4 pg (27.0-31.2); Mean Corpuscular Volume 94.5 fl (81-99); Mean Platelet Volume 8.8 fl (7.4-10.4); Monocytes # 0.5 K/mm3 (0.1-1.0); Monocytes % 4.2 % (1.7-9.3); Neutrophils # 8.3 K/mm3 (1.8-7.8); Neutrophils % 76.2 % (37.0-80.0); Platelet Count 354 K/mm3 (142-424); Red Blood Count 3.42 M/mm3 (4.20-5.40); White Blood Count 10.9 K/mm3 (4.8-10.8)
[2019-07-10 17:44] LABS: Alanine Aminotransferase 20 U/L (12-78); Albumin Level 3.6 gm/dL (3.4-5.0); Albumin/Globulin Ratio 1.1 (1.1-1.8); Alkaline Phosphatase 140 U/L (46-116); Anion Gap 16.8 mEq/L (5-15); Aspartate Amino Transferase 22 U/L (15-37); Bilirubin,Total 1.2 mg/dL (0.2-1.0); Blood Urea Nitrogen 18 mg/dL (7-18); Calcium 8.7 mg/dL (8.5-10.1); Carbon Dioxide 22 mmol/L (21.0-32.0); Chloride 109 mmol/L (98-107); Chol/HDL Ratio 1.6 (1-3.5); Cholesterol 104 mg/dL (140-200); Creatinine,Serum 1.32 mg/dL (0.55-1.02); Estimated Glomerular Filt Rate 41 ml/min (>60); GFR (African American) 49 ML/MIN (>60); Globulin 3.3 gm/dl (1.3-3.2); Glucose 87 mg/dL (74-106); HDL Cholesterol 64 mg/dL (29-89); LDL Cholesterol 22 mg/dL (0-130); Potassium 4.8 mmoL/L (3.5-5.1); Sodium 143 mmol/L (136-145); T4 (Thyroxine) 8.9 ug/dl (4.7-13.3); Thyroid Stimulating Hormone 7.47 uIU/ml (0.358-3.740); Total Protein,Serum 6.9 gm/dL (6.4-8.2); Triglycerides 92 mg/dL (30-200); VLDL Cholesterol 18 mg/dL (0-40)
[2019-07-10 18:27] LABS: Hemoglobin A1C 8.1 % (0.0-7.0)
[2019-07-12 17:52] LABS: Vitamin D 25 Hydroxy 27.5 ng/mL (30.0-100.0)
== END ==
PROVIDERS: Visit Provider Physician Assistant
DX: E11.9 Type 2 diabetes mellitus without complications (principal); Z79.84 Long term (current) use of oral hypoglycemic drugs
CPT/HCPCS: 80053; 80061; 82652; 83036; 84436; 84443; 85025

== ENCOUNTER → 2019-09-05 14:01 | Outpatient (CLI) | payer MEDICAID, SELFPAY ==
--- NOTE | 2019-09-05 14:02 | US_ITS ---
APPROVED REPORT Exam Type: Ankle to Brachial Index Defensive Driving Instructor: Elis Luis RT(R) Indications Claudication: Risk Factors Hypertension Hyperlipidemia Diabetes Pressures/Indices Right Indices Left Indices Brachial 203.00 mmHg Brachial 252.00 mmHg Low Thigh 233.00 mmHg 0.92 Low Thigh 207.00 mmHg 0.82 Calf 239.00 mmHg 0.95 Calf 233.00 mmHg 0.92 Ankle(PT) 208.00 mmHg 0.83 Ankle(PT) 221.00 mmHg 0.88 Ankle(DP) 198.00 mmHg 0.79 Ankle(DP) 217.00 mmHg 0.86 Digit 116.00 mmHg 0.46 Digit 114.00 mmHg 0.45 Findings RIGHT ALESSANDRO 0.8 LEFT ALESSANDRO 0.9 RIGHT TBI 0.5 LEFT TBI 0.5 DECREASED PULSES AND WAVEFORMS Conclusion RIGHT ALESSANDRO 0.8 LEFT ALESSANDRO 0.9 RIGHT TBI 0.5 LEFT TBI 0.5 DECREASED PULSES AND WAVEFORMS MILD ARTERIAL DISEASE ON THE RIGHT Electronically signed by : Juan F Fernandez MD 09/05/2019 17:44:45
== END ==
PROVIDERS: PCP Physician Assistant; Visit Provider Physician Assistant
DX: R09.89 Other specified symptoms and signs involving the circulatory and respiratory systems (principal)
CPT/HCPCS: 93923

== ENCOUNTER → 2020-02-11 14:23 | Outpatient (CLI) | payer MEDICAID, SELFPAY ==
[2020-02-11 15:24] LABS: Basophils # 0.1 K/mm3 (0-0.2); Basophils % 0.7 % (0.1-2.0); Eosinophils # 0.1 K/mm3 (0.0-0.4); Eosinophils % 0.9 % (0.1-12.0); Hematocrit 35.6 % (37.0-47.0); Hemoglobin 11.3 g/dL (12.2-16.2); Lymphocytes # 2.5 K/mm3 (0.7-4.5); Lymphocytes % 20.8 % (10-50); Mean Corpuscular HGB Conc 31.8 g/dL (31.8-35.4); Mean Corpuscular Hemoglobin 28.9 pg (27.0-31.2); Mean Corpuscular Volume 90.9 fl (81-99); Mean Platelet Volume 7.9 fl (7.4-10.4); Monocytes # 0.5 K/mm3 (0.1-1.0); Monocytes % 4.1 % (1.7-9.3); Neutrophils # 8.8 K/mm3 (1.8-7.8); Neutrophils % 73.6 % (37.0-80.0); Platelet Count 358 K/mm3 (142-424); Red Blood Count 3.91 M/mm3 (4.20-5.40); Red Cell Distribution Width 12.5 % (11.5-17.5)
[2020-02-11 15:43] LABS: Chloride 108 mmol/L (98-107); Sodium 138 mmol/L (136-145)
[2020-02-11 15:44] LABS: Potassium 5.4 mmoL/L (3.5-5.1)
[2020-02-11 15:46] LABS: Alanine Aminotransferase 10 U/L (12-78); Alkaline Phosphatase 110 U/L (38-126); Anion Gap 12.4 mEq/L (5-15); Aspartate Amino Transferase 21 U/L (14-36); Bilirubin,Direct 0.2 mg/dl (0.0-0.4); Bilirubin,Indirect 1.4 mg/dL (0.0-0.9); Bilirubin,Total 1.6 mg/dl (0.2-1.3); Bilirubin,Unconjugated 1.4 mg/dL (0.0-1.1); Blood Urea Nitrogen 21 mg/dl (7-17); Carbon Dioxide 23 mmol/L (22.0-30.0); Estimated Glomerular Filt Rate 27 ml/min (>60); GFR (African American) 32 ML/MIN (>60)
[2020-02-11 15:47] LABS: Calcium 9.6 mg/dl (8.4-10.2); Chol/HDL Ratio 2.8 (1-3.5); Cholesterol 184 mg/dl (140-200); Glucose 141 mg/dl (74-100); HDL Cholesterol 65 mg/dl (40-60); Total Protein,Serum 6.9 g/dl (6.3-8.2); Triglycerides 195 mg/dl (30-150); VLDL Cholesterol 39 mg/dL (0-40)
[2020-02-11 15:58] LABS: Direct LDL Cholesterol 86.38 mg/dL (100-129)
== END ==
PROVIDERS: Visit Provider Urology
DX: E11.22 Type 2 diabetes mellitus with diabetic chronic kidney disease (principal); E11.69 Type 2 diabetes mellitus with other specified complication; E78.5 Hyperlipidemia, unspecified; I25.10 Atherosclerotic heart disease of native coronary artery without angina pectoris; I73.9 Peripheral vascular disease, unspecified; N18.3 Chronic kidney disease, stage 3 (moderate); Z95.5 Presence of coronary angioplasty implant and graft
CPT/HCPCS: 36415; 80048; 80061; 80076; 85025

== ENCOUNTER → 2020-03-11 13:58 | Outpatient (CLI) | payer MEDICAID, SELFPAY ==
[2020-03-11 15:26] LABS: Anion Gap 12.7 mEq/L (5-15); Blood Urea Nitrogen 12 mg/dl (7-17); Calcium 9.2 mg/dl (8.4-10.2); Carbon Dioxide 27 mmol/L (22.0-30.0); Chloride 103 mmol/L (98-107); Estimated Glomerular Filt Rate 41 ml/min (>60); GFR (African American) 50 ML/MIN (>60); Glucose 103 mg/dl (74-100); Potassium 5.7 mmoL/L (3.5-5.1); Sodium 137 mmol/L (136-145)
== END ==
PROVIDERS: Urology; Visit Provider Internal Medicine
DX: E78.5 Hyperlipidemia, unspecified (principal); I10 Essential (primary) hypertension; I25.10 Atherosclerotic heart disease of native coronary artery without angina pectoris; I73.9 Peripheral vascular disease, unspecified; Z95.5 Presence of coronary angioplasty implant and graft
CPT/HCPCS: 36415; 80048

== ENCOUNTER → 2020-04-07 10:38 | Outpatient (CLI) | payer MEDICAID, SELFPAY ==
[2020-04-07 11:46] LABS: Anion Gap 15.9 mEq/L (5-15); Blood Urea Nitrogen 25 mg/dl (7-17); Calcium 9.3 mg/dl (8.4-10.2); Carbon Dioxide 23 mmol/L (22.0-30.0); Chloride 103 mmol/L (98-107); Estimated Glomerular Filt Rate 30 ml/min (>60); GFR (African American) 37 ML/MIN (>60); Glucose 208 mg/dl (74-100); Potassium 4.9 mmoL/L (3.5-5.1); Sodium 137 mmol/L (136-145)
== END ==
PROVIDERS: Visit Provider Physician Assistant
DX: E87.5 Hyperkalemia (principal)
CPT/HCPCS: 36415; 80048

== ENCOUNTER → 2020-08-24 13:13 | Outpatient (CLI) | payer MEDICAID, SELFPAY ==
[2020-08-24 14:59] LABS: Anion Gap 15.3 mEq/L (5-15); Blood Urea Nitrogen 24 mg/dl (7-17); Carbon Dioxide 24 mmol/L (22.0-30.0); Chloride 101 mmol/L (98-107); Estimated Glomerular Filt Rate 38 ml/min (>60); GFR (African American) 46 ML/MIN (>60); Glucose 305 mg/dl (74-100); Potassium 5.3 mmoL/L (3.5-5.1); Sodium 135 mmol/L (136-145)
== END ==
PROVIDERS: Visit Provider Urology
DX: E11.22 Type 2 diabetes mellitus with diabetic chronic kidney disease (principal); N18.30 Chronic kidney disease, stage 3 unspecified; E11.8 Type 2 diabetes mellitus with unspecified complications; G62.9 Polyneuropathy, unspecified; L60.3 Nail dystrophy; Z79.84 Long term (current) use of oral hypoglycemic drugs
CPT/HCPCS: 36415; 80048

== ENCOUNTER → 2020-09-09 14:44 | Outpatient (CLI) | payer MEDICAID, SELFPAY ==
[2020-09-09 15:57] LABS: Anion Gap 13.1 mEq/L (5-15); Blood Urea Nitrogen 27 mg/dl (7-17); Calcium 9.3 mg/dl (8.4-10.2); Carbon Dioxide 22 mmol/L (22.0-30.0); Chloride 107 mmol/L (98-107); Estimated Glomerular Filt Rate 28 ml/min (>60); GFR (African American) 34 ML/MIN (>60); Potassium 5.1 mmoL/L (3.5-5.1); Sodium 137 mmol/L (136-145)
[2020-09-09 16:17] LABS: Glucose 401 mg/dl (74-100)
== END ==
PROVIDERS: Visit Provider Urology
DX: R06.00 Dyspnea, unspecified (principal); I25.10 Atherosclerotic heart disease of native coronary artery without angina pectoris; E11.22 Type 2 diabetes mellitus with diabetic chronic kidney disease; N18.30 Chronic kidney disease, stage 3 unspecified; E11.69 Type 2 diabetes mellitus with other specified complication; E78.5 Hyperlipidemia, unspecified; I10 Essential (primary) hypertension; Z95.5 Presence of coronary angioplasty implant and graft
CPT/HCPCS: 36415; 80048

== ENCOUNTER → 2020-09-14 17:43 | Outpatient (CLI) | payer MEDICAID, SELFPAY ==
[2020-09-14 18:06] LABS: Basophils # 0.1 K/mm3 (0-0.2); Basophils % 0.8 % (0.1-2.0); Eosinophils # 0.3 K/mm3 (0.0-0.4); Eosinophils % 2.1 % (0.1-12.0); Hemoglobin 10.8 g/dL (12.2-16.2); Lymphocytes # 3.6 K/mm3 (0.7-4.5); Lymphocytes % 31.6 % (10-50); Mean Corpuscular HGB Conc 31.7 g/dL (31.8-35.4); Mean Corpuscular Hemoglobin 28.8 pg (27.0-31.2); Mean Corpuscular Volume 90.9 fl (81-99); Mean Platelet Volume 9.7 fl (7.4-10.4); Monocytes # 0.7 K/mm3 (0.1-1.0); Monocytes % 6.4 % (1.7-9.3); Neutrophils # 6.8 K/mm3 (1.8-7.8); Neutrophils % 59.1 % (37.0-80.0); Platelet Count 345 K/mm3 (142-424); Red Blood Count 3.74 M/mm3 (4.20-5.40); Red Cell Distribution Width 13.4 % (11.5-17.5); White Blood Count 11.5 K/mm3 (4.8-10.8)
[2020-09-14 19:14] LABS: Alanine Aminotransferase 20 U/L (12-78); Albumin Level 4.1 g/dl (3.5-5.0); Albumin/Globulin Ratio 1.3 (1.1-1.8); Alkaline Phosphatase 104 U/L (38-126); Aspartate Amino Transferase 33 U/L (14-36); Bilirubin,Total 1.4 mg/dl (0.2-1.3); Blood Urea Nitrogen 23 mg/dl (7-17); Calcium 9.5 mg/dl (8.4-10.2); Carbon Dioxide 24 mmol/L (22.0-30.0); Chloride 110 mmol/L (98-107); Chol/HDL Ratio 1.9 (1-3.5); Cholesterol 141 mg/dl (140-200); Estimated Glomerular Filt Rate 30 ml/min (>60); GFR (African American) 37 ML/MIN (>60); Globulin 3.1 g/dL (1.3-3.2); Glucose 186 mg/dl (74-100); HDL Cholesterol 74 mg/dl (40-60); Sodium 141 mmol/L (136-145); Total Protein,Serum 7.2 g/dl (6.3-8.2); Triglycerides 158 mg/dl (30-150); VLDL Cholesterol 32 mg/dL (0-40)
[2020-09-14 19:26] LABS: Direct LDL Cholesterol 42.68 mg/dL (100-129)
[2020-09-14 19:32] LABS: 25-OH Vitamin D, Total 19.9 ng/mL (30-100); Free T4 (Free Thyroxine) 1.13 ng/dl (0.78-2.19)
[2020-09-14 19:46] LABS: Thyroid Stimulating Hormone 8.24 uIU/mL (0.465-4.68)
[2020-09-14 20:12] LABS: Amphetamine/Metha Screen,Urine Negative ng/ml (<1000); Hemoglobin A1C 9.8 % (4.0-6.0)
[2020-09-14 20:13] LABS: Barbiturates Screen,Urine Negative ng/ml (<200)
[2020-09-14 20:14] LABS: Benzodiazepines Screen,Urine Negative ng/ml (<200); Cannabinoid Screen,Urine Negative ng/ml (<50)
[2020-09-14 20:15] LABS: Cocaine Screen,Urine Negative ng/ml (<300)
[2020-09-14 20:16] LABS: Methadone Screen,Urine Negative ng/ml (<300); Opiate Screen,Urine Negative ng/ml (<300)
[2020-09-14 20:17] LABS: Phencyclidine Screen,Urine Negative ng/ml (<25)
[2020-09-15 09:45] LABS: Iron 80 ug/dL (37-170)
[2020-09-15 09:54] LABS: Total Iron Binding Capacity 325 ug/dL (265-497)
== END ==
PROVIDERS: Visit Provider Physician Assistant
DX: D64.9 Anemia, unspecified (principal); E11.22 Type 2 diabetes mellitus with diabetic chronic kidney disease; E11.69 Type 2 diabetes mellitus with other specified complication; E55.9 Vitamin D deficiency, unspecified; E78.5 Hyperlipidemia, unspecified; N18.30 Chronic kidney disease, stage 3 unspecified; Z79.84 Long term (current) use of oral hypoglycemic drugs
CPT/HCPCS: 80053; 80061; 80305; 82043; 82306; 83036; 83540; 83550; 84439; 84443; 85025

== ENCOUNTER → 2020-11-01 13:12 | Outpatient (CLI) | payer MEDICAID, SELFPAY ==
[2020-11-01 13:16] LABS: Microscopic, Urine URINE MICROSCOPIC (MICROSCOPIC)
[2020-11-01 13:39] LABS: Basophils # 0.1 K/mm3 (0-0.2); Eosinophils # 0.3 K/mm3 (0.0-0.4); Eosinophils % 2.7 % (0.1-12.0); Hematocrit 34.8 % (37.0-47.0); Hemoglobin 11.2 g/dL (12.2-16.2); Lymphocytes # 3.3 K/mm3 (0.7-4.5); Lymphocytes % 34.5 % (10-50); Mean Corpuscular HGB Conc 32.1 g/dL (31.8-35.4); Mean Corpuscular Hemoglobin 29.2 pg (27.0-31.2); Mean Platelet Volume 8.5 fl (7.4-10.4); Monocytes # 0.5 K/mm3 (0.1-1.0); Monocytes % 5.5 % (1.7-9.3); Neutrophils # 5.4 K/mm3 (1.8-7.8); Neutrophils % 56.4 % (37.0-80.0); Platelet Count 336 K/mm3 (142-424); Red Blood Count 3.82 M/mm3 (4.20-5.40); Red Cell Distribution Width 13.1 % (11.5-17.5); White Blood Count 9.6 K/mm3 (4.8-10.8)
[2020-11-01 13:52] LABS: Appearance,Urine CLEAR (Clear); Bilirubin,Urine Negative (Negative); Blood, Urine Negative (Negative); Color,Urine YELLOW (Yellow); Glucose,Urine (UA) TRACE (Negative); Ketones,Urine Negative (Negative); Leukocyte Esterase,Urine Negative (Negative); Nitrate,Urine Negative (Negative); PH,Urine 5.5 (5.0-8.5); Protein,Urine Negative (Negative); Specific Gravity, Urine 1.025 (1.005-1.030); Urobilinogen,Urine 0.2 EU/dl (0.2)
[2020-11-01 14:02] LABS: Creatinine,Urine Random 105 mg/dL (Not Estab.)
[2020-11-01 14:29] LABS: 25-OH Vitamin D, Total 32.2 ng/mL (30-100)
[2020-11-01 14:32] LABS: Albumin Level 4.5 g/dl (3.5-5.0); Anion Gap 14.6 mEq/L (5-15); Blood Urea Nitrogen 20 mg/dl (7-17); Calcium 9.4 mg/dl (8.4-10.2); Carbon Dioxide 22 mmol/L (22.0-30.0); Chloride 109 mmol/L (98-107); Estimated Glomerular Filt Rate 32 ml/min (>60); GFR (African American) 39 ML/MIN (>60); Glucose 214 mg/dl (74-100); Potassium 5.6 mmoL/L (3.5-5.1); Sodium 140 mmol/L (136-145)
[2020-11-01 14:44] LABS: Intact Parathyroid Hormone 111.1 pg/mL (7.5-53.5)
== END ==
PROVIDERS: Visit Provider Internal Medicine Nephrology
DX: E11.22 Type 2 diabetes mellitus with diabetic chronic kidney disease (principal); N18.30 Chronic kidney disease, stage 3 unspecified
CPT/HCPCS: 36415; 80069; 81001; 82306; 82570; 83970; 84155; 85025

== ENCOUNTER → 2020-11-04 13:14 | Outpatient (POV) | payer MEDICAID, SELFPAY | PROVIDERS: Visit Provider Internal Medicine Nephrology | DX: Z00.00 Encounter for general adult medical examination without abnormal findings (principal) ==

== ENCOUNTER → 2021-02-01 13:20 | Outpatient (CLI) | payer MEDICARE, MEDICAID, SELFPAY ==
[2021-02-01 13:24] LABS: Microscopic, Urine URINE MICROSCOPIC (MICROSCOPIC)
[2021-02-01 13:41] LABS: Appearance,Urine CLEAR (Clear); Bilirubin,Urine Negative (Negative); Blood, Urine Negative (Negative); Color,Urine YELLOW (Yellow); Glucose,Urine (UA) Negative (Negative); Ketones,Urine Negative (Negative); Leukocyte Esterase,Urine 1+ (Negative); Nitrate,Urine Negative (Negative); Protein,Urine Negative (Negative); Specific Gravity, Urine >= 1.030 (1.005-1.030); Urobilinogen,Urine 0.2 EU/dl (0.2)
[2021-02-01 13:50] LABS: Creatinine,Urine Random 141 mg/dL (Not Estab.)
[2021-02-01 14:34] LABS: Basophils # 0.1 K/mm3 (0-0.2); Basophils % 0.8 % (0.1-2.0); Eosinophils # 0.3 K/mm3 (0.0-0.4); Eosinophils % 2.5 % (0.1-12.0); Hematocrit 32.3 % (37.0-47.0); Hemoglobin 10.7 g/dL (12.2-16.2); Lymphocytes # 2.9 K/mm3 (0.7-4.5); Lymphocytes % 29.1 % (10-50); Mean Corpuscular HGB Conc 33.3 g/dL (31.8-35.4); Mean Corpuscular Hemoglobin 29.2 pg (27.0-31.2); Mean Corpuscular Volume 87.7 fl (81-99); Mean Platelet Volume 8.1 fl (7.4-10.4); Monocytes # 0.5 K/mm3 (0.1-1.0); Neutrophils # 6.3 K/mm3 (1.8-7.8); Neutrophils % 62.6 % (37.0-80.0); Platelet Count 328 K/mm3 (142-424); Red Blood Count 3.68 M/mm3 (4.20-5.40); White Blood Count 10.1 K/mm3 (4.8-10.8)
[2021-02-01 14:41] LABS: Albumin Level 3.8 g/dl (3.5-5.0); Anion Gap 16.2 mEq/L (5-15); Blood Urea Nitrogen 14 mg/dl (7-17); Calcium 8.8 mg/dl (8.4-10.2); Carbon Dioxide 21 mmol/L (22.0-30.0); Chloride 107 mmol/L (98-107); Estimated Glomerular Filt Rate 32 ml/min (>60); GFR (African American) 39 ML/MIN (>60); Glucose 235 mg/dl (74-100); Phosphorous 4.1 mg/dl (2.5-4.5); Sodium 138 mmol/L (136-145)
[2021-02-01 14:55] LABS: Potassium 6.2 mmoL/L (3.5-5.1)
== END ==
PROVIDERS: Visit Provider Internal Medicine Nephrology
DX: N18.30 Chronic kidney disease, stage 3 unspecified (principal); R82.90 Unspecified abnormal findings in urine
CPT/HCPCS: 36415; 80069; 81001; 82570; 84155; 85025; 87086

== ENCOUNTER → 2021-02-03 13:28 | Outpatient (POV) | payer MEDICAID, SELFPAY | PROVIDERS: Visit Provider Internal Medicine Nephrology | DX: Z00.00 Encounter for general adult medical examination without abnormal findings (principal) ==

== ENCOUNTER → 2021-02-04 09:28 | Outpatient (CLI) | payer MEDICARE, MEDICAID, SELFPAY ==
[2021-02-04 10:12] LABS: Potassium 5.7 mmoL/L (3.5-5.1)
== END ==
PROVIDERS: Visit Provider Internal Medicine Nephrology
DX: E87.5 Hyperkalemia (principal)
CPT/HCPCS: 36415; 84132

== ENCOUNTER → 2021-02-22 13:56 | Outpatient (CLI) | payer MEDICARE, MEDICAID, SELFPAY ==
[2021-02-22 14:49] LABS: Potassium 5.5 mmoL/L (3.5-5.1)
== END ==
PROVIDERS: Visit Provider Internal Medicine Nephrology
DX: E87.5 Hyperkalemia (principal)
CPT/HCPCS: 36415; 84132

== ENCOUNTER → 2021-03-30 17:53 | Outpatient (CLI) | payer MEDICARE, MEDICAID, SELFPAY ==
[2021-03-30 19:15] LABS: Basophils # 0.1 K/mm3 (0-0.2); Basophils % 0.8 % (0.1-2.0); Eosinophils # 0.1 K/mm3 (0.0-0.4); Eosinophils % 1.2 % (0.1-12.0); Hematocrit 32.5 % (37.0-47.0); Hemoglobin 10.7 g/dL (12.2-16.2); Lymphocytes # 2.4 K/mm3 (0.7-4.5); Lymphocytes % 26.7 % (10-50); Mean Corpuscular HGB Conc 32.8 g/dL (31.8-35.4); Mean Corpuscular Hemoglobin 29.6 pg (27.0-31.2); Mean Corpuscular Volume 90.2 fl (81-99); Mean Platelet Volume 10.7 fl (7.4-10.4); Monocytes # 0.4 K/mm3 (0.1-1.0); Monocytes % 4.8 % (1.7-9.3); Neutrophils % 66.4 % (37.0-80.0); Platelet Count 381 K/mm3 (142-424); Red Blood Count 3.61 M/mm3 (4.20-5.40); Red Cell Distribution Width 13.4 % (11.5-17.5); White Blood Count 9.1 K/mm3 (4.8-10.8)
[2021-03-30 19:37] LABS: Alanine Aminotransferase 13 U/L (12-78); Albumin Level 3.8 g/dl (3.5-5.0); Albumin/Globulin Ratio 1.3 (1.1-1.8); Alkaline Phosphatase 113 U/L (38-126); Anion Gap 17.1 mEq/L (5-15); Aspartate Amino Transferase 25 U/L (14-36); Blood Urea Nitrogen 32 mg/dl (7-17); Calcium 8.8 mg/dl (8.4-10.2); Carbon Dioxide 19 mmol/L (22.0-30.0); Chloride 109 mmol/L (98-107); Cholesterol 148 mg/dl (140-200); Estimated Glomerular Filt Rate 30 ml/min (>60); GFR (African American) 36 ML/MIN (>60); Glucose 160 mg/dl (74-100); HDL Cholesterol 49 mg/dl (40-60); Potassium 5.1 mmoL/L (3.5-5.1); Sodium 140 mmol/L (136-145); Total Protein,Serum 6.8 g/dl (6.3-8.2); Triglycerides 166 mg/dl (30-150); VLDL Cholesterol 33 mg/dL (0-40)
[2021-03-30 19:48] LABS: Hemoglobin A1C 7.5 % (4.0-6.0)
[2021-03-30 19:49] LABS: Direct LDL Cholesterol 67.26 mg/dL (100-129)
[2021-03-30 19:55] LABS: Free T4 (Free Thyroxine) 0.93 ng/dl (0.78-2.19)
[2021-03-30 19:57] LABS: 25-OH Vitamin D, Total 36.8 ng/mL (30-100)
[2021-03-30 20:11] LABS: Thyroid Stimulating Hormone 8.42 uIU/mL (0.465-4.68)
== END ==
PROVIDERS: Visit Provider Physician Assistant
DX: D64.9 Anemia, unspecified (principal); E11.9 Type 2 diabetes mellitus without complications; E55.9 Vitamin D deficiency, unspecified; E78.5 Hyperlipidemia, unspecified; R19.7 Diarrhea, unspecified
CPT/HCPCS: 80053; 80061; 82306; 83036; 84439; 84443; 85025

== ENCOUNTER → 2021-04-08 14:08 | Outpatient (CLI) | payer MEDICARE, MEDICAID, SELFPAY ==
[2021-04-08 16:05] LABS: Potassium 5.1 mmoL/L (3.5-5.1)
== END ==
PROVIDERS: Visit Provider Internal Medicine Nephrology
DX: E87.5 Hyperkalemia (principal)
CPT/HCPCS: 36415; 84132

== ENCOUNTER → 2021-05-09 09:33 | Outpatient (CLI) | payer MEDICARE, MEDICAID, SELFPAY ==
[2021-05-09 09:38] LABS: Microscopic, Urine URINE MICROSCOPIC (MICROSCOPIC)
[2021-05-09 09:50] LABS: Hematocrit 34.4 % (37.0-47.0); Hemoglobin 11.1 g/dL (12.2-16.2); Mean Corpuscular HGB Conc 32.3 g/dL (31.8-35.4); Mean Corpuscular Hemoglobin 29.7 pg (27.0-31.2); Platelet Count 418 K/mm3 (142-424); Red Blood Count 3.74 M/mm3 (4.20-5.40); Red Cell Distribution Width 12.8 % (11.5-17.5); White Blood Count 9.5 K/mm3 (4.8-10.8)
[2021-05-09 11:05] LABS: Albumin Level 3.9 g/dl (3.5-5.0); Anion Gap 9.7 mEq/L (5-15); Blood Urea Nitrogen 19 mg/dl (7-17); Calcium 9.6 mg/dl (8.4-10.2); Carbon Dioxide 26 mmol/L (22.0-30.0); Chloride 107 mmol/L (98-107); Estimated Glomerular Filt Rate 38 ml/min (>60); GFR (African American) 46 ML/MIN (>60); Glucose 263 mg/dl (74-100); Phosphorous 3.6 mg/dl (2.5-4.5); Potassium 5.7 mmoL/L (3.5-5.1); Sodium 137 mmol/L (136-145)
[2021-05-09 15:32] LABS: Appearance,Urine CLEAR (Clear); Bilirubin,Urine Negative (Negative); Blood, Urine Negative (Negative); Color,Urine YELLOW (Yellow); Glucose,Urine (UA) 3+ (Negative); Ketones,Urine Negative (Negative); Leukocyte Esterase,Urine Negative (Negative); Nitrate,Urine Negative (Negative); Protein,Urine Negative (Negative); Urobilinogen,Urine 0.2 EU/dl (0.2)
[2021-05-09 15:50] LABS: Bacteria,Urine 1+ /lpf
[2021-05-09 15:54] LABS: Creatinine,Urine Random 55 mg/dL (Not Estab.)
== END ==
PROVIDERS: Visit Provider Internal Medicine Nephrology
DX: N18.32 Chronic kidney disease, stage 3b (principal)
CPT/HCPCS: 36415; 80069; 81001; 82570; 84155; 85014; 85018; 85048; 85049

== ENCOUNTER → 2021-06-03 13:40 | Outpatient (CLI) | payer MEDICARE, MEDICAID, SELFPAY ==
[2021-06-03 14:58] LABS: Albumin Level 3.6 g/dl (3.5-5.0); Chloride 103 mmol/L (98-107); Potassium 5.2 mmoL/L (3.5-5.1); Sodium 136 mmol/L (136-145)
[2021-06-03 15:01] LABS: Anion Gap 14.2 mEq/L (5-15); Blood Urea Nitrogen 20 mg/dl (7-17); Carbon Dioxide 24 mmol/L (22.0-30.0); Estimated Glomerular Filt Rate 30 ml/min (>60); GFR (African American) 36 ML/MIN (>60); Phosphorous 4.3 mg/dl (2.5-4.5)
[2021-06-03 15:02] LABS: Calcium 8.9 mg/dl (8.4-10.2); Glucose 226 mg/dl (74-100)
== END ==
PROVIDERS: Visit Provider Internal Medicine Nephrology
DX: N18.32 Chronic kidney disease, stage 3b (principal); E87.5 Hyperkalemia
CPT/HCPCS: 36415; 80069

== ENCOUNTER → 2021-06-09 15:42 | Outpatient (POV) | payer MEDICARE, MEDICAID, SELFPAY | PROVIDERS: Visit Provider Internal Medicine Nephrology | DX: Z00.00 Encounter for general adult medical examination without abnormal findings (principal) ==

== ENCOUNTER → 2021-11-09 14:53 | Outpatient (CLI) | payer MEDICARE, MEDICAID, SELFPAY ==
--- NOTE | 2021-11-09 15:05 | XR_ITS ---
FINAL REPORT CLINICAL HISTORY: FALL 1 MTH AGO, right UE pain FINDINGS: RIGHT HUMERUS Two views were obtained. There is no acute fracture or dislocation. The joint spaces appear normal. No soft tissue abnormality is identified. IMPRESSION: No acute process. Reviewed, Interpreted and Dictated by Gibran Noel III, MD Transcribed by Taisha Cutler Authenticated by Gibran Noel III, MD on 11/09/2021 04:06:[address] [facility]
--- NOTE | 2021-11-09 15:05 | XR_ITS ---
FINAL REPORT CLINICAL HISTORY: FALL 1 MTH AGO, RUE pain FINDINGS: RIGHT SHOULDER Three views were obtained. There is no acute fracture or dislocation. There is mild AC joint and glenohumeral joint degenerative change. No soft tissue abnormality is identified. IMPRESSION: Mild degenerative changes. Reviewed, Interpreted and Dictated by Gibran Noel III, MD Transcribed by Taisha Cutler Authenticated by Gibran Noel III, MD on 11/09/2021 04:25:08 PM [facility]
[2021-11-09 15:53] LABS: Hemoglobin A1C 11.5 % (4.0-6.0)
[2021-11-09 16:23] LABS: 25-OH Vitamin D, Total 21.3 ng/mL (30-100)
[2021-11-09 18:35] LABS: Alanine Aminotransferase 16 U/L (12-78); Albumin Level 4.2 g/dl (3.5-5.0); Albumin/Globulin Ratio 1.6 (1.1-1.8); Alkaline Phosphatase 105 U/L (38-126); Anion Gap 10.8 mEq/L (5-15); Aspartate Amino Transferase 26 U/L (14-36); Bilirubin,Total 1.2 mg/dl (0.2-1.3); Blood Urea Nitrogen 20 mg/dl (7-17); Calcium 9.1 mg/dl (8.4-10.2); Carbon Dioxide 22 mmol/L (22.0-30.0); Chloride 109 mmol/L (98-107); Chol/HDL Ratio 2.2 (1-3.5); Cholesterol 147 mg/dl (140-200); Estimated Glomerular Filt Rate 32 ml/min (>60); GFR (African American) 39 ML/MIN (>60); Globulin 2.7 g/dL (1.3-3.2); Glucose 108 mg/dl (74-100); HDL Cholesterol 67 mg/dl (40-60); Potassium 4.8 mmoL/L (3.5-5.1); Sodium 137 mmol/L (136-145); Total Protein,Serum 6.9 g/dl (6.3-8.2); Triglycerides 170 mg/dl (30-150); VLDL Cholesterol 34 mg/dL (0-40)
[2021-11-09 19:27] LABS: Vitamin B12 317 pg/mL (239-931)
== END ==
PROVIDERS: PCP Physician Assistant; Visit Provider Physician Assistant
DX: E11.42 Type 2 diabetes mellitus with diabetic polyneuropathy (principal); M25.511 Pain in right shoulder; R53.1 Weakness; F41.1 Generalized anxiety disorder; E55.9 Vitamin D deficiency, unspecified
CPT/HCPCS: 36415; 73030; 73060; 80053; 80061; 82043; 82306; 82607; 83036; 84443

== ENCOUNTER → 2022-01-02 11:18 | Outpatient (CLI) | payer MEDICARE, MEDICAID, SELFPAY ==
[2022-01-02 11:26] LABS: Microscopic, Urine URINE MICROSCOPIC (MICROSCOPIC)
[2022-01-02 11:38] LABS: Appearance,Urine CLEAR (Clear); Bilirubin,Urine Negative (Negative); Blood, Urine Negative (Negative); Color,Urine YELLOW (Yellow); Glucose,Urine (UA) Negative (Negative); Hematocrit 29.4 % (37.0-47.0); Hemoglobin 9.6 g/dL (12.2-16.2); Ketones,Urine Negative (Negative); Leukocyte Esterase,Urine 1+ (Negative); Mean Corpuscular HGB Conc 32.6 g/dL (31.8-35.4); Mean Corpuscular Hemoglobin 29.9 pg (27.0-31.2); Nitrate,Urine Negative (Negative); Platelet Count 282 K/mm3 (142-424); Protein,Urine Negative (Negative); Red Blood Count 3.19 M/mm3 (4.20-5.40); Red Cell Distribution Width 13.3 % (11.5-17.5); Urobilinogen,Urine 0.2 EU/dl (0.2); White Blood Count 10.9 K/mm3 (4.8-10.8)
[2022-01-02 11:54] LABS: Bacteria,Urine 1+ /lpf
[2022-01-02 12:04] LABS: Creatinine,Urine Random 98 mg/dL (Not Estab.)
[2022-01-02 13:29] LABS: Albumin Level 3.7 g/dl (3.5-5.0); Chloride 114 mmol/L (98-107); Potassium 5.8 mmoL/L (3.5-5.1); Sodium 140 mmol/L (136-145)
[2022-01-02 13:31] LABS: Blood Urea Nitrogen 27 mg/dl (7-17); Estimated Glomerular Filt Rate 21 ml/min (>60); GFR (African American) 26 ML/MIN (>60)
[2022-01-02 13:32] LABS: Anion Gap 13.8 mEq/L (5-15); Calcium 9.3 mg/dl (8.4-10.2); Carbon Dioxide 18 mmol/L (22.0-30.0); Glucose 80 mg/dl (74-100); Phosphorous 4.9 mg/dl (2.5-4.5)
== END ==
PROVIDERS: PCP Physician Assistant; Visit Provider Internal Medicine Nephrology
DX: N18.32 Chronic kidney disease, stage 3b (principal); D63.1 Anemia in chronic kidney disease; R80.1 Persistent proteinuria, unspecified; E87.5 Hyperkalemia; E83.9 Disorder of mineral metabolism, unspecified; M89.9 Disorder of bone, unspecified
CPT/HCPCS: 36415; 80069; 81001; 82570; 84155; 85014; 85018; 85048; 85049; 87086

== ENCOUNTER → 2022-01-05 13:11 | Outpatient (POV) | payer MEDICARE, MEDICAID, SELFPAY | PROVIDERS: Visit Provider Internal Medicine Nephrology | DX: Z00.00 Encounter for general adult medical examination without abnormal findings (principal) ==

== ENCOUNTER 2022-03-22 18:02 | Emergency (ER) | payer MEDICARE, MEDICAID, SELFPAY ==
--- NOTE | 2022-03-22 17:59 | ECG_ITS ---
APPROVED REPORT Exam: Resting ECG HR:78 bpm ECG Measurements Heart Rate 78 AXES MS 174 P 49 QRSd 89 QRS -31 QT 374 T 93 QTc 407 Conclusion SINUS RHYTHM LEFT AXIS DEVIATION [QRS AXIS < -30] Old septal changes ABNORMAL ECG UNCONFIRMED REPORT Electronically signed by : Johnny Fang MD 03/24/2022 17:06:34
[2022-03-22 18:05] VITALS: BP 140/71; PULSE 82; RESP 18; TEMP 37; O2SAT 100; BMI 34.0
--- NOTE | 2022-03-22 18:09 | CT_ITS ---
PROCEDURE INFORMATION: Exam: CT Head Without Contrast Exam date and time: 03/22/2022 7:17 PM Age: 66 years old Clinical indication: Other: Neuro deficit TECHNIQUE: Imaging protocol: Computed tomography of the head without contrast. Radiation optimization: All CT scans at this facility use at least one of these dose optimization techniques: automated exposure control; mA and/or kV adjustment per patient size (includes targeted exams where dose is matched to clinical indication); or iterative reconstruction. COMPARISON: No relevant prior studies available. FINDINGS: Brain: Patchy hypoattenuation in the periventricular deep white matter bilaterally. Tiny air of remote lacunar infarct in the right head of caudate. Cerebral ventricles: Enlargement of ventricles, sulci and cisterns bilaterally. Paranasal sinuses: Visualized sinuses are unremarkable. No fluid levels. Mastoid air cells: Visualized mastoid air cells are well aerated. Bones/joints: Unremarkable. No acute fracture. Soft tissues: Unremarkable. IMPRESSION: 1. No evidence for acute intracranial hemorrhage, midline shift or mass effect. 2. Cortical atrophy and chronic periventricular microangiopathy. 3. Remote lacune right head of caudate.
--- NOTE | 2022-03-22 18:39 | HMH.EDWEAK ---
ED Disposition Clinical Impression: Acute kidney injury superimposed on CKD Disposition: Still a Patient Condition on Discharge: Fair Referrals: Provider,Referral, [Referring] - - Critical Care Critical Care Time: No Attestation: On 03/22/22, the high probability of a clinically significant, sudden or life threatening deterioration of the following system(s) required my full and direct attention, intervention and personal management. The time I documented below is in addition to time spent performing reported procedures but includes the following listed in this critical care notation. Medical Decision Making - Medical Records Medical records reviewed: Yes: I reviewed the patient's medical records. - George Inquiry Pt receiving controlled substance: No Vital Signs: 03/22/22 18:05 Temperature 98.6 F Temperature Source Oral Pulse Rate [Left Radial] 82 Respiratory Rate 18 Blood Pressure [Right Arm] 140/71 Blood Pressure Mean [Right Arm] 94 02 Sat by Pulse Oximetry 100 Oxygen Delivery Method Room Air - Lab Data Lab Results 03/22/22 18:09: SARS-CoV-2 (PCR) Not detected, Influenza A Untype (PCR) Not detected, Influenza Type B (PCR) Not detected 03/22/22 18:52: WBC 11.7 H, RBC 3.29 L, Hgb 9.8 L, Hct 30.7 L, MCV 93.5, MCH 29.8, MCHC 31.9, RDW 14.2, Plt Count 396, MPV 8.5, Neut % (Auto) 83.4 H, Lymph % (Auto) 11.9, [place] % (Auto) 3.8, Eos % (Auto) 0.4, Baso % (Auto) 0.4, Neut # (Auto) 9.8 H, Lymph # (Auto) 1.4, [place] # (Auto) 0.5, Eos # (Auto) 0.1, Baso # (Auto) 0.1 03/22/22 18:52: Sodium 139, Potassium 3.9, Chloride 116 H, Carbon Dioxide 13 L, Anion Gap 13.9, BUN 35 H, Creatinine 3.10 H, Estimated Creat Clear 17, Estimated GFR 15 L*, Est GFR ( Amer) 18 L*, Glucose 220 H, Calcium 9.1, Total Bilirubin 0.8, AST 28, ALT 18, Alkaline Phosphatase 106, Troponin I 0.06 H, Total Protein 7.1, Albumin 3.9, Globulin 3.2, Albumin/Globulin Ratio 1.2 03/22/22 19:38: Urine Color Yellow, Urine Appearance Cloudy, Urine pH 7.5, Ur Specific [place] 1.020, Urine Protein 2+, Urine Glucose (UA) Negative, Urine Ketones Negative, Urine Blood Trace-i, Urine Nitrate Negative, Urine Bilirubin Negative, Urine Urobilinogen 0.2, Ur Leukocyte Esterase 2+ A, Urine RBC Occasional, Urine WBC 10-20, Ur Squamous Epith Cells 3-5, Urine Bacteria 3+ Result diagrams: 03/22/22 18:52 03/22/22 18:52 Orders (Tests/Meds): ED MEDICATIONS Generic Name Dose Route Start Last Admin Trade Name Freq PRN Reason Stop Dose Admin Lactated Ringer's 1,000 mls @ 999 mls/hr 03/22/22 19:30 03/22/22 19:22 Lactated Ringer's 1000 Ml Bag IV 03/22/22 20:30 999 mls/hr .Q1H1M DEXTER Administration ORDERS Category Date Time Status Creatinine,Serum Stat Lab 03/22/22 18:52 Ordered Troponin I Q3H Lab 03/22/22 21:15 Ordered Troponin I Q3H Lab 03/23/22 00:15 Ordered Urine Culture Stat Micro 03/22/22 19:38 Received Medical Decision Narrative: In review this is a 66-year-old female who presents with chief complaint of dizziness and weakness. Hemodynamically stable and nontoxic-appearing. Patient's physical exam is overall reassuring. Her dizziness is only on ambulation and particularly on standing. She says that she feels unsteady on her feet. But it does get better so I think this could be more of a presyncopal feeling as opposed to a central vertigo but we will get CT and CTAs to evaluate for this. Laboratory studies were pertinent for mild leukocytosis but also showed a substantial JAMAR on CKD. Unable to obtain contrasted scans due to GFR. Patient says that she has been having diarrhea a little worse than normal so this could be dehydration causing her symptoms as well as her JAMAR. We will give the patient a 1 L LR bolus and recheck her creatinine to see if it is improving to see if we can follow this outpatient or if she needs to come in for her JAMAR. Patient handed off to the oncoming provider pending repeat creatinine and final disposition. Tanisha
--- NOTE | 2022-03-22 18:53 | PC.NURSE ---
pt aware of UA order. states she will let staff know when she can provide a sample
[2022-03-22 19:00] LABS: Coronavirus 19, PCR Not Detected (NotDetected); Influenza A, PCR Not Detected (NotDetected); Influenza B, PCR Not Detected (NotDetected)
[2022-03-22 19:06] LABS: Basophils # 0.1 K/mm3 (0-0.2); Basophils % 0.4 % (0.1-2.0); Eosinophils # 0.1 K/mm3 (0.0-0.4); Eosinophils % 0.4 % (0.1-12.0); Hematocrit 30.7 % (37.0-47.0); Hemoglobin 9.8 g/dL (12.2-16.2); Lymphocytes # 1.4 K/mm3 (0.7-4.5); Lymphocytes % 11.9 % (10-50); Mean Corpuscular HGB Conc 31.9 g/dL (31.8-35.4); Mean Corpuscular Hemoglobin 29.8 pg (27.0-31.2); Mean Corpuscular Volume 93.5 fl (81-99); Mean Platelet Volume 8.5 fl (7.4-10.4); Monocytes # 0.5 K/mm3 (0.1-1.0); Monocytes % 3.8 % (1.7-9.3); Neutrophils # 9.8 K/mm3 (1.8-7.8); Neutrophils % 83.4 % (37.0-80.0); Platelet Count 396 K/mm3 (142-424); Red Blood Count 3.29 M/mm3 (4.20-5.40); Red Cell Distribution Width 14.2 % (11.5-17.5); White Blood Count 11.7 K/mm3 (4.8-10.8)
[2022-03-22 19:07] LABS: Chloride 116 mmol/L (98-107); Sodium 139 mmol/L (136-145)
[2022-03-22 19:08] LABS: Potassium 3.9 mmoL/L (3.5-5.1)
[2022-03-22 19:10] LABS: Alanine Aminotransferase 18 U/L (12-78); Albumin Level 3.9 g/dl (3.5-5.0); Alkaline Phosphatase 106 U/L (38-126); Aspartate Amino Transferase 28 U/L (14-36); Bilirubin,Total 0.8 mg/dl (0.2-1.3); Blood Urea Nitrogen 35 mg/dl (7-17); Creatinine Clearance Estimated 17 mL/min (50-200); Estimated Glomerular Filt Rate 15 ml/min (>60); GFR (African American) 18 ML/MIN (>60)
[2022-03-22 19:11] LABS: Albumin/Globulin Ratio 1.2 (1.1-1.8); Anion Gap 13.9 mEq/L (5-15); Calcium 9.1 mg/dl (8.4-10.2); Carbon Dioxide 13 mmol/L (22.0-30.0); Globulin 3.2 g/dL (1.3-3.2); Glucose 220 mg/dl (74-100); Total Protein,Serum 7.1 g/dl (6.3-8.2)
--- NOTE | 2022-03-22 19:17 | PC.NURSE ---
Critical GFR notified to Dr. Rudolph. Radiology notified to complete CTs without contrast.
[2022-03-22 19:23] LABS: Troponin I 0.06 ng/ml (0.00-0.034)
[2022-03-22 19:44] LABS: Microscopic, Urine URINE MICROSCOPIC (MICROSCOPIC)
[2022-03-22 19:55] LABS: Appearance,Urine CLOUDY (Clear); Bilirubin,Urine Negative (Negative); Blood, Urine TRACE-I (Negative); Color,Urine YELLOW (Yellow); Glucose,Urine (UA) Negative (Negative); Ketones,Urine Negative (Negative); Leukocyte Esterase,Urine 2+ (Negative); Nitrate,Urine Negative (Negative); PH,Urine 7.5 (5.0-8.5); Protein,Urine 2+ (Negative); Urobilinogen,Urine 0.2 EU/dl (0.2)
[2022-03-22 20:16] LABS: Bacteria,Urine 3+ /lpf; RBC,Urine Occasional #/hpf (0-3)
--- NOTE | 2022-03-22 20:25 | PC.NURSE ---
Pt & her family provided with updated on POC. Will re-draw labs after IV fluids complete and is creatinine is better will go home.
--- NOTE | 2022-03-22 20:32 | PC.NURSE ---
paged dr trivedi @ this time
--- NOTE | 2022-03-22 20:37 | PC.NURSE ---
Md @ bedside updated pt on POC
[2022-03-22 21:28] LABS: Creatinine Clearance Estimated 19 mL/min (50-200); Estimated Glomerular Filt Rate 16 ml/min (>60); GFR (African American) 20 ML/MIN (>60)
--- NOTE | 2022-03-22 21:38 | PC.NURSE ---
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
[2022-03-22 21:39] VITALS: BP 164/74; PULSE 81; RESP 18; TEMP 37; O2SAT 100
[2022-03-22 21:41] LABS: Troponin I 0.06 ng/ml (0.00-0.034)
== END 2022-03-22 21:55 | disposition home or self-care (01) ==
PROVIDERS: Emergency Provider Student in an Organized Health Care Education/Training Program; PCP Physician Assistant
DX: I12.9 Hypertensive chronic kidney disease with stage 1 through stage 4 chronic kidney disease, or unspecified chronic kidney disease (principal); E11.22 Type 2 diabetes mellitus with diabetic chronic kidney disease; N18.9 Chronic kidney disease, unspecified; N17.8 Other acute kidney failure; Z79.82 Long term (current) use of aspirin; Z79.899 Other long term (current) drug therapy; I25.10 Atherosclerotic heart disease of native coronary artery without angina pectoris; F41.9 Anxiety disorder, unspecified; E78.5 Hyperlipidemia, unspecified; I25.2 Old myocardial infarction; D64.9 Anemia, unspecified; E03.9 Hypothyroidism, unspecified
CPT/HCPCS: 70450; 80053; 81001; 82565; 84484; 85025; 87086; 93005; 96360; 99284; C9803; U0003; U0005

== ENCOUNTER → 2022-03-23 06:11 | Outpatient (CLI) | payer MEDICARE, MEDICAID, SELFPAY ==
[2022-03-23 18:30] LABS: Basophils % 0.4 % (0.1-2.0); Eosinophils # 0.1 K/mm3 (0.0-0.4); Hematocrit 30.3 % (37.0-47.0); Hemoglobin 9.3 g/dL (12.2-16.2); Lymphocytes # 2.3 K/mm3 (0.7-4.5); Lymphocytes % 22.5 % (10-50); Mean Corpuscular HGB Conc 30.7 g/dL (31.8-35.4); Mean Corpuscular Hemoglobin 29.1 pg (27.0-31.2); Mean Corpuscular Volume 94.9 fl (81-99); Mean Platelet Volume 9.5 fl (7.4-10.4); Monocytes # 0.5 K/mm3 (0.1-1.0); Neutrophils # 7.4 K/mm3 (1.8-7.8); Neutrophils % 71.3 % (37.0-80.0); Platelet Count 393 K/mm3 (142-424); Red Blood Count 3.19 M/mm3 (4.20-5.40); Red Cell Distribution Width 14.3 % (11.5-17.5); White Blood Count 10.4 K/mm3 (4.8-10.8)
[2022-03-23 18:50] LABS: Alanine Aminotransferase 16 U/L (12-78); Albumin Level 3.5 g/dl (3.5-5.0); Albumin/Globulin Ratio 1.3 (1.1-1.8); Alkaline Phosphatase 111 U/L (38-126); Anion Gap 14.3 mEq/L (5-15); Aspartate Amino Transferase 31 U/L (14-36); Bilirubin,Total 1.3 mg/dl (0.2-1.3); Blood Urea Nitrogen 28 mg/dl (7-17); Calcium 8.9 mg/dl (8.4-10.2); Carbon Dioxide 13 mmol/L (22.0-30.0); Chloride 114 mmol/L (98-107); Chol/HDL Ratio 1.9 (1-3.5); Cholesterol 110 mg/dl (140-200); Estimated Glomerular Filt Rate 16 ml/min (>60); GFR (African American) 20 ML/MIN (>60); Globulin 2.8 g/dL (1.3-3.2); Glucose 223 mg/dl (74-100); HDL Cholesterol 57 mg/dl (40-60); Potassium 4.3 mmoL/L (3.5-5.1); Sodium 137 mmol/L (136-145); Total Protein,Serum 6.3 g/dl (6.3-8.2); Triglycerides 138 mg/dl (30-150); VLDL Cholesterol 28 mg/dL (0-40)
[2022-03-23 19:07] LABS: 25-OH Vitamin D, Total 38.6 ng/mL (30-100)
[2022-03-23 19:22] LABS: Thyroid Stimulating Hormone 6.83 uIU/mL (0.465-4.68)
[2022-03-24 08:59] LABS: Hemoglobin A1C 6.4 % (4.0-6.0)
[2022-03-25 08:35] LABS: Direct LDL Cholesterol 31 mg/dL (100-129)
== END ==
PROVIDERS: PCP Physician Assistant; Visit Provider Physician Assistant
DX: N18.9 Chronic kidney disease, unspecified (principal); N17.9 Acute kidney failure, unspecified; F41.1 Generalized anxiety disorder; E11.42 Type 2 diabetes mellitus with diabetic polyneuropathy; E55.9 Vitamin D deficiency, unspecified; Z79.84 Long term (current) use of oral hypoglycemic drugs
CPT/HCPCS: 80053; 80061; 82306; 83036; 84443; 85025

== ENCOUNTER → 2022-03-28 13:32 | Outpatient (CLI) | payer MEDICARE, MEDICAID, SELFPAY ==
[2022-03-28 13:49] LABS: Microscopic, Urine URINE MICROSCOPIC (MICROSCOPIC)
[2022-03-28 15:17] LABS: Hematocrit 29.5 % (37.0-47.0); Hemoglobin 9.3 g/dL (12.2-16.2); Mean Corpuscular HGB Conc 31.5 g/dL (31.8-35.4); Mean Corpuscular Hemoglobin 29.8 pg (27.0-31.2); Mean Corpuscular Volume 94.8 fl (81-99); Platelet Count 314 K/mm3 (142-424); Red Blood Count 3.12 M/mm3 (4.20-5.40); Red Cell Distribution Width 13.9 % (11.5-17.5); White Blood Count 8.8 K/mm3 (4.8-10.8)
[2022-03-28 15:37] LABS: Appearance,Urine SL CLOUDY (Clear); Bilirubin,Urine Negative (Negative); Blood, Urine Negative (Negative); Color,Urine YELLOW (Yellow); Glucose,Urine (UA) 1+ (Negative); Ketones,Urine Negative (Negative); Leukocyte Esterase,Urine Negative (Negative); Nitrate,Urine Negative (Negative); PH,Urine 5.5 (5.0-8.5); Protein,Urine Negative (Negative); Specific Gravity, Urine 1.025 (1.005-1.030); Urobilinogen,Urine 0.2 EU/dl (0.2)
[2022-03-28 15:38] LABS: Albumin Level 3.5 g/dl (3.5-5.0); Blood Urea Nitrogen 24 mg/dl (7-17); Calcium 8.6 mg/dl (8.4-10.2); Carbon Dioxide 16 mmol/L (22.0-30.0); Chloride 112 mmol/L (98-107); Estimated Glomerular Filt Rate 24 ml/min (>60); GFR (African American) 29 ML/MIN (>60); Glucose 326 mg/dl (74-100); Phosphorous 4.1 mg/dl (2.5-4.5); Sodium 138 mmol/L (136-145)
[2022-03-28 16:03] LABS: Creatinine,Urine Random 104 mg/dL (Not Estab.)
[2022-03-28 16:44] LABS: Bacteria,Urine 4+ /lpf; Squamous Epithelial Cell,Urine 20-50 #/hpf (0-5); Yeast,Urine 1+ /lpf
== END ==
PROVIDERS: PCP Physician Assistant; Visit Provider Internal Medicine Nephrology
DX: N18.32 Chronic kidney disease, stage 3b (principal); R82.90 Unspecified abnormal findings in urine
CPT/HCPCS: 36415; 80069; 81001; 82570; 84155; 85014; 85018; 85048; 85049; 87086

== ENCOUNTER → 2022-04-03 13:15 | Outpatient (POV) | payer MEDICARE, MEDICAID, SELFPAY | PROVIDERS: Visit Provider Internal Medicine Nephrology | DX: Z00.00 Encounter for general adult medical examination without abnormal findings (principal) ==

== ENCOUNTER → 2022-05-10 13:25 | Outpatient (CLI) | payer MEDICARE, MEDICAID, SELFPAY ==
[2022-05-10 16:58] LABS: Chloride 105 mmol/L (98-107)
[2022-05-10 16:59] LABS: Albumin Level 3.6 g/dl (3.5-5.0); Potassium 5.3 mmoL/L (3.5-5.1); Sodium 137 mmol/L (136-145)
[2022-05-10 17:01] LABS: Blood Urea Nitrogen 23 mg/dl (7-17); Estimated Glomerular Filt Rate 26 ml/min (>60); GFR (African American) 32 ML/MIN (>60)
[2022-05-10 17:02] LABS: Anion Gap 14.3 mEq/L (5-15); Calcium 8.5 mg/dl (8.4-10.2); Carbon Dioxide 23 mmol/L (22.0-30.0); Glucose 222 mg/dl (74-100); Phosphorous 3.6 mg/dl (2.5-4.5)
== END ==
PROVIDERS: PCP Physician Assistant; Visit Provider Internal Medicine Nephrology
DX: N18.4 Chronic kidney disease, stage 4 (severe) (principal)
CPT/HCPCS: 36415; 80069

== ENCOUNTER → 2022-05-15 13:42 | Outpatient (POV) | payer MEDICARE, MEDICAID, SELFPAY | PROVIDERS: Visit Provider Internal Medicine Nephrology | DX: Z00.00 Encounter for general adult medical examination without abnormal findings (principal) ==

== ENCOUNTER → 2022-09-04 13:02 | Outpatient (CLI) | payer MEDICARE, MEDICAID, SELFPAY ==
[2022-09-04 13:33] LABS: Microscopic, Urine URINE MICROSCOPIC (MICROSCOPIC)
[2022-09-04 14:04] LABS: Appearance,Urine SL CLOUDY (Clear); Bilirubin,Urine Negative (Negative); Blood, Urine Negative (Negative); Color,Urine YELLOW (Yellow); Glucose,Urine (UA) Negative (Negative); Ketones,Urine Negative (Negative); Leukocyte Esterase,Urine TRACE (Negative); Nitrate,Urine Negative (Negative); Protein,Urine TRACE (Negative); Specific Gravity, Urine 1.015 (1.005-1.030); Urobilinogen,Urine 0.2 EU/dl (0.2)
[2022-09-04 14:05] LABS: Creatinine,Urine Random 68 mg/dL (Not Estab.)
[2022-09-04 14:11] LABS: Bacteria,Urine 2+ /lpf; Hematocrit 30.8 % (37.0-47.0); Hemoglobin 9.9 g/dL (12.2-16.2); Mean Corpuscular HGB Conc 32.2 g/dL (31.8-35.4); Mean Corpuscular Hemoglobin 28.9 pg (27.0-31.2); Mean Corpuscular Volume 89.8 fl (81-99); Platelet Count 298 K/mm3 (142-424); Red Blood Count 3.42 M/mm3 (4.20-5.40); Red Cell Distribution Width 13.8 % (11.5-17.5); White Blood Count 10.7 K/mm3 (4.8-10.8)
[2022-09-04 14:50] LABS: Albumin Level 3.9 g/dl (3.5-5.0); Anion Gap 10.9 mEq/L (5-15); Blood Urea Nitrogen 25 mg/dl (7-17); Calcium 8.6 mg/dl (8.4-10.2); Carbon Dioxide 23 mmol/L (22.0-30.0); Chloride 109 mmol/L (98-107); Estimated Glomerular Filt Rate 25 ml/min (>60); GFR (African American) 30 ML/MIN (>60); Glucose 153 mg/dl (74-100); Phosphorous 4.1 mg/dl (2.5-4.5); Potassium 5.9 mmoL/L (3.5-5.1); Sodium 137 mmol/L (136-145)
[2022-09-04 15:02] LABS: Intact Parathyroid Hormone 100.4 pg/mL (7.5-53.5)
[2022-09-04 15:06] LABS: 25-OH Vitamin D, Total 13.1 ng/mL (30-100)
== END ==
PROVIDERS: PCP Physician Assistant; Visit Provider Internal Medicine Nephrology
DX: N18.4 Chronic kidney disease, stage 4 (severe) (principal); R82.90 Unspecified abnormal findings in urine
CPT/HCPCS: 36415; 80069; 81001; 82306; 82570; 83970; 84155; 85014; 85018; 85048; 85049; 87086

== ENCOUNTER → 2022-09-07 12:39 | Outpatient (POV) | payer MEDICARE, MEDICAID, SELFPAY | PROVIDERS: Visit Provider Internal Medicine Nephrology | DX: Z00.00 Encounter for general adult medical examination without abnormal findings (principal) ==

== ENCOUNTER → 2022-09-11 12:39 | Outpatient (CLI) | payer MEDICARE, MEDICAID, SELFPAY | PROVIDERS: PCP Physician Assistant; Visit Provider Internal Medicine Nephrology | DX: E87.5 Hyperkalemia (principal) | CPT/HCPCS: 36415; 84132 ==

== ENCOUNTER → 2022-12-06 13:22 | Outpatient (CLI) | payer MEDICARE, MEDICAID, SELFPAY ==
[2022-12-06 14:08] LABS: Albumin Level 3.6 g/dl (3.5-5.0); Anion Gap 14.7 mEq/L (5-15); Blood Urea Nitrogen 23 mg/dl (7-17); Calcium 8.5 mg/dl (8.4-10.2); Carbon Dioxide 19 mmol/L (22.0-30.0); Chloride 109 mmol/L (98-107); Estimated Glomerular Filt Rate 20 ml/min (>60); GFR (African American) 24 ML/MIN (>60); Glucose 161 mg/dl (74-100); Phosphorous 4.7 mg/dl (2.5-4.5); Potassium 4.7 mmoL/L (3.5-5.1); Sodium 138 mmol/L (136-145)
[2022-12-06 14:59] LABS: Basophils # 0.1 K/mm3 (0-0.2); Basophils % 0.4 % (0.1-2.0); Eosinophils # 0.4 K/mm3 (0.0-0.4); Eosinophils % 2.7 % (0.1-12.0); Hematocrit 30.5 % (37.0-47.0); Hemoglobin 9.4 g/dL (12.2-16.2); Lymphocytes # 3.1 K/mm3 (0.7-4.5); Lymphocytes % 22.6 % (10-50); Mean Corpuscular Hemoglobin 28.5 pg (27.0-31.2); Mean Platelet Volume 7.7 fl (7.4-10.4); Monocytes # 0.8 K/mm3 (0.1-1.0); Monocytes % 5.9 % (1.7-9.3); Neutrophils # 9.2 K/mm3 (1.8-7.8); Neutrophils % 68.4 % (37.0-80.0); Platelet Count 352 K/mm3 (142-424); Red Blood Count 3.32 M/mm3 (4.20-5.40); White Blood Count 13.5 K/mm3 (4.8-10.8)
== END ==
PROVIDERS: PCP Physician Assistant; Visit Provider Internal Medicine Nephrology
DX: N18.4 Chronic kidney disease, stage 4 (severe) (principal)
CPT/HCPCS: 36415; 80069; 85025

== ENCOUNTER 2022-12-07 15:32 | Outpatient (CLI) | payer MEDICARE, MEDICAID, SELFPAY ==
--- NOTE | 2022-12-07 15:35 | US_ITS ---
PROCEDURE INFORMATION: Exam: US Retroperitoneal; Complete; Kidneys and Bladder Exam date and time: 12/07/2022 4:07 PM Age: 67 years old Clinical indication: Other: Unable to urinate often; Additional info: Difficultly urinating TECHNIQUE: Imaging protocol: Real-time ultrasound of the retroperitoneum with image documentation. Complete exam focused on the kidneys and bladder. COMPARISON: US URINARY BLADDER 12/07/2022 4:04 PM FINDINGS: Gallbladder: Status post cholecystectomy. Common bile duct: The common bile duct measures 1 cm. Right kidney: The right kidney measures 8.3 x 4.1 x 6 cm. No evidence of hydronephrosis. 5 mm echogenic focus in the peripheral cortex of the upper pole the right kidney which could represent a cortical calcification although findings could also represent a small angiomyolipoma. There is thinning of the right renal cortex. Left kidney: The left kidney measures 9 x 4.6 x 5.8 cm. No evidence of hydronephrosis or stones. Spleen: The spleen measures 8.8 cm in length. Urinary bladder: Unremarkable. IMPRESSION: 5 mm echogenic focus in the peripheral cortex of the upper pole the right kidney which could represent a cortical calcification although findings could also represent a small angiomyolipoma. There is thinning of the right renal cortex. Otherwise unremarkable evaluation of the kidneys.
[2022-12-07 15:47] VITALS: BP 146/69; PULSE 73; RESP 18; TEMP 36.6; O2SAT 99
--- NOTE | 2022-12-07 15:57 | US_ITS ---
PROCEDURE INFORMATION: Exam: US Pelvis Limited, Bladder Exam date and time: 12/07/2022 4:04 PM Age: 67 years old Clinical indication: Retention of urine; Additional info: Urinary TECHNIQUE: Imaging protocol: Real-time pelvic ultrasound with image documentation. COMPARISON: None FINDINGS: Urinary bladder: Unremarkable bladder. Bilateral ureteral jets are identified. Bladder pre-void volume (cc): volume 130 cc Bladder post-void residual volume (cc): volume 80 cc IMPRESSION: Bladder is unremarkable in appearance. Postvoid residual volume of 80 cc.
--- NOTE | 2022-12-07 16:11 | PC.NURSE ---
radiology staff here to transport pt to [facility] for renal u/s and bladder scan. report given. pt transported via with ivf's infusing.
[2022-12-07 16:35] VITALS: BP 138/76; PULSE 76; RESP 18; O2SAT 98
[2022-12-07 17:51] VITALS: BP 124/66; PULSE 68; RESP 18; O2SAT 99
== END 2022-12-07 17:53 | disposition home or self-care (01) ==
LOC: INF 15:34
PROVIDERS: PCP Physician Assistant; Visit Provider Nurse Practitioner Family
DX: E11.22 Type 2 diabetes mellitus with diabetic chronic kidney disease (principal); E86.0 Dehydration; N18.30 Chronic kidney disease, stage 3 unspecified; Z79.84 Long term (current) use of oral hypoglycemic drugs
CPT/HCPCS: 76770; 76857; 96360; 96361

== ENCOUNTER → 2022-12-08 13:10 | Outpatient (CLI) | payer MEDICARE, MEDICAID, SELFPAY ==
[2022-12-08 14:47] LABS: Anion Gap 14.5 mEq/L (5-15); Blood Urea Nitrogen 27 mg/dl (7-17); Calcium 8.3 mg/dl (8.4-10.2); Carbon Dioxide 18 mmol/L (22.0-30.0); Chloride 110 mmol/L (98-107); Estimated Glomerular Filt Rate 22 ml/min (>60); GFR (African American) 27 ML/MIN (>60); Glucose 130 mg/dl (74-100); Potassium 4.5 mmoL/L (3.5-5.1); Sodium 138 mmol/L (136-145)
== END ==
PROVIDERS: PCP Physician Assistant; Visit Provider Nurse Practitioner Family
DX: R39.9 Unspecified symptoms and signs involving the genitourinary system (principal); E11.22 Type 2 diabetes mellitus with diabetic chronic kidney disease; Z79.84 Long term (current) use of oral hypoglycemic drugs; N18.30 Chronic kidney disease, stage 3 unspecified
CPT/HCPCS: 36415; 80048; 87086

== ENCOUNTER → 2022-12-11 13:23 | Outpatient (POV) | payer MEDICARE, MEDICAID, SELFPAY | PROVIDERS: Visit Provider Internal Medicine Nephrology | DX: Z00.00 Encounter for general adult medical examination without abnormal findings (principal) ==

== ENCOUNTER → 2023-03-05 12:44 | Outpatient (CLI) | payer MEDICARE, MEDICAID, SELFPAY ==
[2023-03-05 12:55] LABS: Microscopic, Urine URINE MICROSCOPIC (MICROSCOPIC)
[2023-03-05 13:39] LABS: Hematocrit 28.6 % (37.0-47.0); Hemoglobin 9.3 g/dL (12.2-16.2); Mean Corpuscular HGB Conc 32.7 g/dL (31.8-35.4); Mean Corpuscular Hemoglobin 28.8 pg (27.0-31.2); Mean Corpuscular Volume 88.2 fl (81-99); Platelet Count 305 K/mm3 (142-424); Red Blood Count 3.24 M/mm3 (4.20-5.40); Red Cell Distribution Width 13.7 % (11.5-17.5); White Blood Count 9.1 K/mm3 (4.8-10.8)
[2023-03-05 14:08] LABS: Creatinine,Urine Random 106 mg/dL (Not Estab.)
[2023-03-05 14:31] LABS: 25-OH Vitamin D, Total 24.1 ng/mL (30-100)
[2023-03-05 14:46] LABS: Chloride 112 mmol/L (98-107); Sodium 140 mmol/L (136-145)
[2023-03-05 14:47] LABS: Albumin Level 3.4 g/dl (3.5-5.0); Potassium 4.7 mmoL/L (3.5-5.1)
[2023-03-05 14:49] LABS: Anion Gap 11.7 mEq/L (5-15); Blood Urea Nitrogen 22 mg/dl (7-17); Carbon Dioxide 21 mmol/L (22.0-30.0); Estimated Glomerular Filt Rate 22 ml/min (>60); GFR (African American) 27 ML/MIN (>60); Iron 41 ug/dL (37-170)
[2023-03-05 14:50] LABS: Calcium 8.7 mg/dl (8.4-10.2); Glucose 125 mg/dl (74-100); Phosphorous 4.7 mg/dl (2.5-4.5)
[2023-03-05 15:24] LABS: Total Iron Binding Capacity 286 ug/dL (265-497)
[2023-03-05 15:26] LABS: Ferritin 20.8 ng/ml (11.1-264)
[2023-03-05 15:33] LABS: Appearance,Urine SL CLOUDY (Clear); Bilirubin,Urine Negative (Negative); Blood, Urine Negative (Negative); Color,Urine YELLOW (Yellow); Glucose,Urine (UA) Negative (Negative); Ketones,Urine Negative (Negative); Leukocyte Esterase,Urine 1+ (Negative); Nitrate,Urine Negative (Negative); PH,Urine 5.5 (5.0-8.5); Protein,Urine TRACE (Negative); Specific Gravity, Urine 1.025 (1.005-1.030); Urobilinogen,Urine 0.2 EU/dl (0.2)
[2023-03-05 15:40] LABS: Bacteria,Urine 1+ /lpf
== END ==
PROVIDERS: PCP Physician Assistant; Visit Provider Internal Medicine Nephrology
DX: N18.4 Chronic kidney disease, stage 4 (severe) (principal); R82.90 Unspecified abnormal findings in urine
CPT/HCPCS: 36415; 80069; 81001; 82306; 82570; 82728; 83540; 83550; 84155; 85014; 85018; 85048; 85049; 87086

== ENCOUNTER 2023-03-20 12:49 | Outpatient (CLI) | payer MEDICARE, MEDICAID, SELFPAY ==
[2023-03-20 13:07] VITALS: BMI 23.8
[2023-03-20 13:12] VITALS: BP 202/85; PULSE 71; RESP 18; TEMP 36.7; O2SAT 99
[2023-03-20 13:23] LABS: Basophils # 0.1 K/mm3 (0-0.2); Basophils % 0.4 % (0.1-2.0); Eosinophils # 0.2 K/mm3 (0.0-0.4); Eosinophils % 1.8 % (0.1-12.0); Hematocrit 32.2 % (37.0-47.0); Hemoglobin 10.3 g/dL (12.2-16.2); Lymphocytes # 3.1 K/mm3 (0.7-4.5); Lymphocytes % 25.1 % (10-50); Mean Corpuscular HGB Conc 32.1 g/dL (31.8-35.4); Mean Corpuscular Volume 90.4 fl (81-99); Mean Platelet Volume 8.1 fl (7.4-10.4); Monocytes # 0.6 K/mm3 (0.1-1.0); Monocytes % 5.2 % (1.7-9.3); Neutrophils # 8.2 K/mm3 (1.8-7.8); Neutrophils % 67.5 % (37.0-80.0); Platelet Count 386 K/mm3 (142-424); Red Blood Count 3.56 M/mm3 (4.20-5.40); Red Cell Distribution Width 13.5 % (11.5-17.5); White Blood Count 12.1 K/mm3 (4.8-10.8)
[2023-03-20 13:55] VITALS: BP 188/83; PULSE 67; RESP 18; TEMP 36.7; O2SAT 99
== END 2023-03-20 13:55 | disposition home or self-care (01) ==
LOC: INF 12:50
PROVIDERS: PCP Physician Assistant; Visit Provider Internal Medicine Nephrology
DX: N18.4 Chronic kidney disease, stage 4 (severe); D63.1 Anemia in chronic kidney disease
CPT/HCPCS: 85025; 96365; J1439

== ENCOUNTER 2023-03-29 12:39 | Outpatient (CLI) | payer MEDICARE, MEDICAID, SELFPAY ==
[2023-03-29 12:58] VITALS: BP 179/77; PULSE 61; RESP 18; TEMP 36.4; O2SAT 100
[2023-03-29 13:35] VITALS: BP 172/76; PULSE 60; RESP 18; O2SAT 99
== END 2023-03-29 13:35 | disposition home or self-care (01) ==
LOC: INF 12:39
PROVIDERS: PCP Physician Assistant; Visit Provider Internal Medicine Nephrology
DX: N18.4 Chronic kidney disease, stage 4 (severe) (principal); N18.32 Chronic kidney disease, stage 3b; D63.1 Anemia in chronic kidney disease
CPT/HCPCS: 96365; J1439

== ENCOUNTER → 2023-05-10 13:16 | Outpatient (CLI) | payer MEDICARE, MEDICAID, SELFPAY ==
[2023-05-10 13:41] LABS: Microscopic, Urine URINE MICROSCOPIC (MICROSCOPIC)
[2023-05-10 14:35] LABS: Basophils # 0.1 K/mm3 (0-0.2); Basophils % 0.5 % (0.1-2.0); Eosinophils % 0.4 % (0.1-12.0); Hematocrit 34.6 % (37.0-47.0); Hemoglobin 10.9 g/dL (12.2-16.2); Lymphocytes # 1.9 K/mm3 (0.7-4.5); Lymphocytes % 19.6 % (10-50); Mean Corpuscular HGB Conc 31.5 g/dL (31.8-35.4); Mean Corpuscular Hemoglobin 29.8 pg (27.0-31.2); Mean Corpuscular Volume 94.6 fl (81-99); Mean Platelet Volume 8.2 fl (7.4-10.4); Monocytes # 0.4 K/mm3 (0.1-1.0); Monocytes % 3.8 % (1.7-9.3); Neutrophils # 7.3 K/mm3 (1.8-7.8); Neutrophils % 75.7 % (37.0-80.0); Platelet Count 325 K/mm3 (142-424); Red Blood Count 3.66 M/mm3 (4.20-5.40); Red Cell Distribution Width 14.5 % (11.5-17.5); White Blood Count 9.6 K/mm3 (4.8-10.8)
[2023-05-10 14:59] LABS: Albumin Level 3.7 g/dl (3.5-5.0); Anion Gap 9.7 mEq/L (5-15); Blood Urea Nitrogen 21 mg/dl (7-17); Calcium 8.4 mg/dl (8.4-10.2); Carbon Dioxide 20 mmol/L (22.0-30.0); Chloride 114 mmol/L (98-107); Estimated Glomerular Filt Rate 22 ml/min (>60); GFR (African American) 27 ML/MIN (>60); Glucose 126 mg/dl (74-100); Phosphorous 3.1 mg/dl (2.5-4.5); Potassium 4.7 mmoL/L (3.5-5.1); Sodium 139 mmol/L (136-145)
[2023-05-10 18:12] LABS: Appearance,Urine CLEAR (Clear); Bilirubin,Urine Negative (Negative); Blood, Urine Negative (Negative); Color,Urine YELLOW (Yellow); Glucose,Urine (UA) Negative (Negative); Ketones,Urine Negative (Negative); Leukocyte Esterase,Urine TRACE (Negative); Nitrate,Urine Negative (Negative); PH,Urine 5.5 (5.0-8.5); Protein,Urine 1+ (Negative); Specific Gravity, Urine 1.025 (1.005-1.030); Urobilinogen,Urine 0.2 EU/dl (0.2)
[2023-05-10 18:31] LABS: Creatinine,Urine Random 128 mg/dL (Not Estab.)
[2023-05-10 19:03] LABS: Squamous Epithelial Cell,Urine Occasional #/hpf (0-5)
== END ==
PROVIDERS: PCP Physician Assistant; Visit Provider Internal Medicine Nephrology
DX: N18.4 Chronic kidney disease, stage 4 (severe) (principal); N18.32 Chronic kidney disease, stage 3b; D63.1 Anemia in chronic kidney disease
CPT/HCPCS: 36415; 80069; 81001; 82570; 84155; 85025

== ENCOUNTER → 2023-08-02 22:04 | Outpatient (CLI) | payer MEDICARE, MEDICAID, SELFPAY ==
[2023-08-02 16:17] LABS: Basophils # 0.1 K/mm3 (0-0.2); Basophils % 0.6 % (0.1-2.0); Eosinophils # 0.2 K/mm3 (0.0-0.4); Eosinophils % 1.9 % (0.1-12.0); Hematocrit 30.7 % (37.0-47.0); Hemoglobin 10.4 g/dL (12.2-16.2); Lymphocytes # 2.6 K/mm3 (0.7-4.5); Lymphocytes % 30.3 % (10-50); Mean Corpuscular Hemoglobin 31.4 pg (27.0-31.2); Mean Corpuscular Volume 92.3 fl (81-99); Mean Platelet Volume 9.3 fl (7.4-10.4); Monocytes # 0.6 K/mm3 (0.1-1.0); Monocytes % 6.7 % (1.7-9.3); Neutrophils # 5.2 K/mm3 (1.8-7.8); Neutrophils % 60.6 % (37.0-80.0); Platelet Count 262 K/mm3 (142-424); Red Blood Count 3.32 M/mm3 (4.20-5.40); Red Cell Distribution Width 13.6 % (11.5-17.5); White Blood Count 8.7 K/mm3 (4.8-10.8)
[2023-08-02 16:21] LABS: Alanine Aminotransferase 14 U/L (12-78); Albumin Level 3.8 g/dl (3.5-5.0); Albumin/Globulin Ratio 1.3 (1.1-1.8); Alkaline Phosphatase 121 U/L (38-126); Anion Gap 13.3 mEq/L (5-15); Aspartate Amino Transferase 28 U/L (14-36); Bilirubin,Total 0.9 mg/dl (0.2-1.3); Blood Urea Nitrogen 33 mg/dl (7-17); Calcium 8.5 mg/dl (8.4-10.2); Carbon Dioxide 18 mmol/L (22.0-30.0); Chloride 112 mmol/L (98-107); Chol/HDL Ratio 2.9 (1-3.5); Cholesterol 160 mg/dl (140-200); Estimated Glomerular Filt Rate 23 ml/min (>60); GFR (African American) 28 ML/MIN (>60); Globulin 2.9 g/dL (1.3-3.2); Glucose 67 mg/dl (74-100); HDL Cholesterol 55 mg/dl (40-60); Potassium 4.3 mmoL/L (3.5-5.1); Sodium 139 mmol/L (136-145); Total Protein,Serum 6.7 g/dl (6.3-8.2); Triglycerides 182 mg/dl (30-150); VLDL Cholesterol 36 mg/dL (0-40)
[2023-08-02 16:40] LABS: 25-OH Vitamin D, Total 32.5 ng/mL (30-100)
[2023-08-02 18:23] LABS: Hemoglobin A1C 6.4 % (4.0-6.0)
== END ==
LOC: LAB.DROPOF 22:08
PROVIDERS: PCP Physician Assistant; Visit Provider Physician Assistant
DX: Z00.00 Encounter for general adult medical examination without abnormal findings (principal); I21.4 Non-ST elevation (NSTEMI) myocardial infarction; E11.42 Type 2 diabetes mellitus with diabetic polyneuropathy; E55.9 Vitamin D deficiency, unspecified; E78.2 Mixed hyperlipidemia; Z68.22 Body mass index [BMI] 22.0-22.9, adult; Z79.84 Long term (current) use of oral hypoglycemic drugs; Z87.891 Personal history of nicotine dependence
CPT/HCPCS: 80053; 80061; 82306; 83036; 84443; 85025

== ENCOUNTER → 2023-08-04 09:01 | Outpatient (CLI) | payer MEDICARE, MEDICAID, SELFPAY ==
[2023-08-04 09:16] LABS: Microscopic, Urine URINE MICROSCOPIC (MICROSCOPIC)
[2023-08-04 09:47] LABS: Appearance,Urine CLEAR (Clear); Bilirubin,Urine Negative (Negative); Blood, Urine Negative (Negative); Color,Urine YELLOW (Yellow); Glucose,Urine (UA) Negative (Negative); Ketones,Urine Negative (Negative); Leukocyte Esterase,Urine 1+ (Negative); Nitrate,Urine Negative (Negative); Protein,Urine TRACE (Negative); Specific Gravity, Urine 1.015 (1.005-1.030); Urobilinogen,Urine 0.2 EU/dl (0.2)
[2023-08-04 09:52] LABS: Albumin Level 3.5 g/dl (3.5-5.0); Chloride 112 mmol/L (98-107); Potassium 4.5 mmoL/L (3.5-5.1); Sodium 138 mmol/L (136-145)
[2023-08-04 09:54] LABS: Blood Urea Nitrogen 33 mg/dl (7-17); Estimated Glomerular Filt Rate 21 ml/min (>60); GFR (African American) 26 ML/MIN (>60)
[2023-08-04 09:55] LABS: Anion Gap 11.5 mEq/L (5-15); Carbon Dioxide 19 mmol/L (22.0-30.0); Glucose 82 mg/dl (74-100); Phosphorous 4.1 mg/dl (2.5-4.5)
[2023-08-04 10:02] LABS: Creatinine,Urine Random 103 mg/dL (Not Estab.); Hematocrit 30.3 % (37.0-47.0); Mean Corpuscular Hemoglobin 31.4 pg (27.0-31.2); Platelet Count 249 K/mm3 (142-424); Red Blood Count 3.19 M/mm3 (4.20-5.40); Red Cell Distribution Width 13.6 % (11.5-17.5); White Blood Count 8.4 K/mm3 (4.8-10.8)
[2023-08-04 10:13] LABS: Bacteria,Urine Trace /lpf; RBC,Urine Occasional #/hpf (0-3); Squamous Epithelial Cell,Urine Occasional #/hpf (0-5); WBC,Urine Occasional #/hpf (0-3)
== END ==
LOC: LAB 09:03
PROVIDERS: PCP Physician Assistant; Visit Provider Internal Medicine Nephrology
DX: N18.4 Chronic kidney disease, stage 4 (severe) (principal); B96.89 Other specified bacterial agents as the cause of diseases classified elsewhere; R82.90 Unspecified abnormal findings in urine
CPT/HCPCS: 36415; 80069; 81001; 82570; 84155; 85014; 85018; 85048; 85049; 87086

== ENCOUNTER 2023-10-11 12:59 | Outpatient (CLI) | payer MEDICARE, MEDICAID, SELFPAY ==
[2023-10-11 13:07] LABS: Microscopic, Urine URINE MICROSCOPIC (MICROSCOPIC)
[2023-10-11 13:34] LABS: Hematocrit 32.5 % (37.0-47.0); Hemoglobin 10.2 g/dL (12.2-16.2); Mean Corpuscular HGB Conc 31.5 g/dL (31.8-35.4); Mean Corpuscular Hemoglobin 30.9 pg (27.0-31.2); Platelet Count 272 K/mm3 (142-424); Red Blood Count 3.32 M/mm3 (4.20-5.40); Red Cell Distribution Width 13.3 % (11.5-17.5); White Blood Count 10.4 K/mm3 (4.8-10.8)
[2023-10-11 13:46] LABS: Appearance,Urine CLEAR (Clear); Bilirubin,Urine Negative (Negative); Blood, Urine Negative (Negative); Color,Urine YELLOW (Yellow); Glucose,Urine (UA) Negative (Negative); Ketones,Urine Negative (Negative); Leukocyte Esterase,Urine 2+ (Negative); Nitrate,Urine Negative (Negative); PH,Urine 6.5 (5.0-8.5); Protein,Urine 1+ (Negative); Specific Gravity, Urine 1.015 (1.005-1.030); Urobilinogen,Urine 0.2 EU/dl (0.2)
[2023-10-11 13:57] LABS: Creatinine,Urine Random 120 mg/dL (Not Estab.)
[2023-10-11 14:29] LABS: Bacteria,Urine 1+ /lpf
[2023-10-11 14:30] LABS: Amorphous Sediment,Urine 3+ /lpf
[2023-10-11 14:45] LABS: Albumin Level 3.7 g/dl (3.5-5.0); Blood Urea Nitrogen 30 mg/dl (7-17); Calcium 8.5 mg/dl (8.4-10.2); Carbon Dioxide 17 mmol/L (22.0-30.0); Chloride 118 mmol/L (98-107); Estimated Glomerular Filt Rate 19 ml/min (>60); GFR (African American) 23 ML/MIN (>60); Glucose 120 mg/dl (74-100); Phosphorous 5.2 mg/dl (2.5-4.5); Sodium 141 mmol/L (136-145)
[2023-10-11 15:01] LABS: 25-OH Vitamin D, Total 37.5 ng/mL (30-100)
== END 2023-10-11 23:59 ==
PROVIDERS: PCP Physician Assistant; Visit Provider Internal Medicine Nephrology
DX: N18.4 Chronic kidney disease, stage 4 (severe) (principal); D64.89 Other specified anemias; N39.0 Urinary tract infection, site not specified; B96.89 Other specified bacterial agents as the cause of diseases classified elsewhere; Z79.899 Other long term (current) drug therapy
CPT/HCPCS: 36415; 80069; 81001; 82306; 82570; 84155; 85014; 85018; 85048; 85049; 87086

== ENCOUNTER 2023-10-15 16:06 | Outpatient (POV) | payer MEDICARE, MEDICAID, SELFPAY | END 2023-10-15 23:59 | disposition home or self-care (01) | LOC: SC 16:07 | PROVIDERS: Visit Provider Internal Medicine Nephrology | DX: Z00.00 Encounter for general adult medical examination without abnormal findings (principal) ==

== ENCOUNTER 2023-11-19 14:42 | Outpatient (CLI) | payer MEDICARE, MEDICAID, SELFPAY ==
[2023-11-19 15:01] LABS: Basophils # 0.1 K/mm3 (0-0.2); Basophils % 0.9 % (0.1-2.0); Eosinophils # 0.2 K/mm3 (0.0-0.4); Eosinophils % 1.8 % (0.1-12.0); Hemoglobin 10.2 g/dL (12.2-16.2); Lymphocytes # 2.3 K/mm3 (0.7-4.5); Lymphocytes % 25.1 % (10-50); Mean Corpuscular Hemoglobin 30.7 pg (27.0-31.2); Mean Platelet Volume 9.3 fl (7.4-10.4); Monocytes # 0.4 K/mm3 (0.1-1.0); Monocytes % 4.5 % (1.7-9.3); Neutrophils # 6.2 K/mm3 (1.8-7.8); Neutrophils % 67.7 % (37.0-80.0); Platelet Count 317 K/mm3 (142-424); Red Blood Count 3.34 M/mm3 (4.20-5.40); Red Cell Distribution Width 13.5 % (11.5-17.5); White Blood Count 9.2 K/mm3 (4.8-10.8)
[2023-11-19 15:42] LABS: Alanine Aminotransferase 13 U/L (12-78); Albumin Level 3.9 g/dl (3.5-5.0); Alkaline Phosphatase 113 U/L (38-126); Anion Gap 11.7 mEq/L (5-15); Aspartate Amino Transferase 26 U/L (14-36); Bilirubin,Direct 0.2 mg/dl (0.0-0.4); Bilirubin,Indirect 1.3 mg/dL (0.0-0.9); Bilirubin,Total 1.5 mg/dl (0.2-1.3); Bilirubin,Unconjugated 1.3 mg/dL (0.0-1.1); Blood Urea Nitrogen 25 mg/dl (7-17); Calcium 9.5 mg/dl (8.4-10.2); Carbon Dioxide 19 mmol/L (22.0-30.0); Chloride 114 mmol/L (98-107); Chol/HDL Ratio 2.1 (1-3.5); Cholesterol 161 mg/dl (140-200); Estimated Glomerular Filt Rate 23 ml/min (>60); GFR (African American) 28 ML/MIN (>60); Glucose 131 mg/dl (74-100); HDL Cholesterol 75 mg/dl (40-60); Magnesium 1.7 mg/dl (1.6-2.3); Potassium 4.7 mmoL/L (3.5-5.1); Sodium 140 mmol/L (136-145); Total Protein,Serum 6.8 g/dl (6.3-8.2); Triglycerides 99 mg/dl (30-150); VLDL Cholesterol 20 mg/dL (0-40)
[2023-11-19 15:52] LABS: Direct LDL Cholesterol 68.63 mg/dL (100-129)
[2023-11-19 15:57] LABS: Free T4 (Free Thyroxine) 1.07 ng/dl (0.78-2.19)
[2023-11-19 16:11] LABS: Thyroid Stimulating Hormone 6.71 uIU/mL (0.465-4.68)
== END 2023-11-19 23:59 | disposition home or self-care (01) ==
LOC: LAB 14:43
PROVIDERS: PCP Physician Assistant; Visit Provider Nurse Practitioner
DX: I25.119 Atherosclerotic heart disease of native coronary artery with unspecified angina pectoris (principal); E78.2 Mixed hyperlipidemia; I11.9 Hypertensive heart disease without heart failure; E11.22 Type 2 diabetes mellitus with diabetic chronic kidney disease; Z95.5 Presence of coronary angioplasty implant and graft; Z79.84 Long term (current) use of oral hypoglycemic drugs; Z87.891 Personal history of nicotine dependence; N18.30 Chronic kidney disease, stage 3 unspecified
CPT/HCPCS: 36415; 80048; 80061; 80076; 83735; 84439; 84443; 85025

== ENCOUNTER 2023-12-03 11:11 | Outpatient (CLI) | payer MEDICARE, MEDICAID, SELFPAY ==
--- NOTE | 2023-12-03 11:12 | CA_ITS ---
APPROVED REPORT EXAM: Comprehensive 2D, Doppler, and color-flow Echocardiogram Sales Financial Analyst: Elis Luis RT(R) Ht: 5 ft 4 in Wt: 144lbs BSA: 1.70 BP: 180/67 mmHg Indications: Abn EKG, CP, ex smoker, HTN, hyperlipidemia 2D Dimensions LVEF (Don's) 55.90 % F: 54 - 74 LV Volume 96.50 mL F: 46 - 106 LV Volume Index 56.8 mL/m2 F: 29 - 61 LA Volume 51.70 mL LA Volume Index 30.41 mL/m2 (M/F) 16-34 EF AP4 61.80 % EF AP2 52.9 % EF BP 55.9 % GL Strain -16.5 % M-Mode Dimensions RVDd 2.36 cm (0.9-2.6) LA Diam 3.86 cm (1.9-4.0) LVDd 5.24 cm (3.5-5.7) LVDs 3.91 cm (3.5-5.7) IVSd 1.10 cm (0.6-1.1) PWd 0.76 cm (0.6-1.1) EF (Teich) 49.70% FS 25.40% EDV (Teich) 131.80 mL ESV (Teich) 66.30 mL LV Diastology E Decel Time 190 (160-240 msec) E/A Ratio 2.43 Mitral Valve MV A Velocity 46.0 (40-130 cm/s) E/A Ratio 2.43 Tricuspid Valve TR P. Velocity 339.00 cm/s RAP Estimate 10.00 mmHg RVSP 56.10 mmHg Left Ventricle The left ventricle is normal size. The left ventricular systolic function is normal. The left ventricular ejection fraction is within the normal range. There is increased LV wall thickness. 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 The left ventricular diastolic function is normal. LVEF is 60%. Right Ventricle The right ventricle is normal size. The right ventricular systolic function is normal. Atria The left atrium is mildly dilated. The right atrium size is normal. There is no Doppler evidence of interatrial shunt. Aortic Valve The aortic valve is mildly thickened. There is no aortic valvular stenosis. Trace aortic regurgitation. Mitral Valve The mitral valve is normal in structure. No evidence of mitral valve stenosis. Mild mitral regurgitation. Tricuspid Valve The tricuspid valve leaflets are thin and pliable. Trace tricuspid regurgitation. RVSP is 30-35 mmHg. Pulmonic Valve The pulmonary valve is normal in structure. Trace pulmonic regurgitation. Great Vessels The aortic root is normal in size. The ascending aorta is normal in size. IVC is normal in size and collapses >50% with inspiration. Pericardium There is no pericardial effusion. Other Information Study Quality: Fair Conclusion Normal biventricular systolic function. Mild LA dilation. Mild MR. 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 For future evaluations, assessment with ultrasound enhancing agent (Definity) may be suggested to evaluate LV apical wall motion and conclusively rule out apical aneurysm. Electronically signed by : Shanti Camilo MD 12/09/2023 14:40:38
--- NOTE | 2023-12-03 11:38 | NM_ITS ---
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 With Lexiscan, patient denied any complaint of chest pain. Cardiac Stress and Resting SPECT Images: Cardiac Stress and Resting SPECT images were obtained using technetium 99m Myoview 30.6 mCi stress and 10.07 mCi at rest. Resting and stress imaging in supine and prone positions demonstrate a medium sized, severe, fixed perfusion defect in the apical LV wall. Gated imaging demonstrates mild reduction in global LV systolic function. There is akinesis of the LV apex. LVEF is calculated at 49%. Conclusion: Medium sized, severe, fixed perfusion defect in the apical LV wall. No evidence of reversible ischemia. Gated imaging demonstrates mild reduction in global LV systolic function. There is akinesis of the LV apex. LVEF is calculated at 49%. Electronically signed by : Shanti Camilo MD 12/06/2023 13:32:25
[2023-12-03] MEDS: SODIUM CHLORIDE 0.9% 10ML SYR (RAD ONLY) 10 ML IV ×2 (13:43)
[2023-12-03] MEDS: REGADENOSON 0.4MG/5ML SYRINGE 0.400000000000000022 MG IV (13:43)
[2023-12-03] MEDS: ISOTOPE MYOVIEW (PER STUDY) 1 DOSE IV (13:44)
--- NOTE | 2023-12-03 13:54 | CA_ITS ---
APPROVED REPORT Exam: Pharmacologic Technologist: Val Gilliam, Ht: 5 ft 4 in Wt: 144 lbs BSA: 1.70 m2 HR: 59 bpm BP: 172/66 mmHg Rhythm: NSR Medical History Medications: Levothyroxine,,,,, Aspirin,,,,, Ferrous sulfate,,,,, Atorvastatin,,,,, Nitroglycerin,,,,, Glipizide er,,,,, Vitamin D3, D2,,,,, Lomotil,,,,, Metorpolol succinate ER,,,,, SoDIUM BICARBonate,,,,, Stress Test Details Test: LEXISCAN Reason for pharmacologic stress test: physical limitation. HR Resting HR: 58 bpm Max Heart Rate (APMHR): 152 bpm Max HR Achieved: 66 bpm Target HR (85% APMHR): 129 bpm % of APMHR: 43 Recovery HR: 65 bpm BP Resting BP: 172.0/66.0 mmHg Max BP: 172.0/66.0 mmHg Recovery BP: 168.0/64.0 mmHg ECG Resting ECG: Normal sinus rhythm ST Change: No significant ST changes Arrhythmia: None Clinical Exercise duration: 04:00 min Highest Stage Achieved: Stress ECG Conclusion Symptoms: SOB w/Lexiscan. resolved immediately post infusion Arrhythmias/Ectopy: None ST changes: None Conclusion: Unremarkable Lexiscan stress test. Myoview images are reported separately. Test Summary REST . . . . . . . Resting REST 06:56 . . 58 . 172/ 66 . . Stage 1 . . . . . . . Cardiolite injected Stage 1 01:00 . . 63 . . . . Stage 2 01:00 . . 65 . . . . Stage 3 01:00 . . 65 . 158/ 65 . . Stage 4 01:00 . . 65 . 160/ 68 . Stop exercise at 04:00 RECOVERY 01:00 . . 65 . . . . RECOVERY 02:00 . . 65 . 168/ 67 . . RECOVERY 02:58 . . 64 . 168/ 64 . . Electronically signed by : Shanti Camilo MD 12/06/2023 13:30:37
== END 2023-12-03 23:59 | disposition home or self-care (01) ==
LOC: RT 11:12
PROVIDERS: PCP Physician Assistant; Visit Provider Nurse Practitioner
DX: E78.2 Mixed hyperlipidemia; Z95.5 Presence of coronary angioplasty implant and graft; I10 Essential (primary) hypertension; E11.69 Type 2 diabetes mellitus with other specified complication; E78.5 Hyperlipidemia, unspecified; E11.22 Type 2 diabetes mellitus with diabetic chronic kidney disease; N18.30 Chronic kidney disease, stage 3 unspecified; I20.89 Other forms of angina pectoris; R94.31 Abnormal electrocardiogram [ECG] [EKG]; Z79.84 Long term (current) use of oral hypoglycemic drugs
CPT/HCPCS: 78452; 93017; 93018; 93306; A9502; J2785

== ENCOUNTER 2023-12-14 07:20 | Outpatient (CLI) | payer MEDICARE, MEDICAID, SELFPAY ==
--- NOTE | 2023-12-14 | CA_ITS ---
APPROVED REPORT EXAM: Comprehensive 2D, Doppler, and color-flow Echocardiogram Last Sorter: RT German(R) Ht: 5 ft 3 in Wt: 141lbs BSA: 1.67 BP: 180/67 mmHg Indications: Limited echo wtih definity only to asses apical wall motion to rule out apical aneurysm, CP, ex smoker, hyperlipidemia, abn EKG. Other Information Study Quality: Fair Conclusion This is a limited TTE to evaluate for LV apical aneurysm. Limited windows were obtained. The left ventricle is normal in size. There is increased LV wall thickness. There is normal global LV systolic function. The LV apex is akinetic. 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 No evidence of apical LV thrombus. LVEF is 60-65%. 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 Electronically signed by : Shanti Camilo MD 12/16/2023 01:46:04
== END 2023-12-14 23:59 | disposition home or self-care (01) ==
LOC: RT 07:20
PROVIDERS: PCP Physician Assistant; Visit Provider Internal Medicine
DX: R06.02 Shortness of breath (principal)
CPT/HCPCS: 93308

== ENCOUNTER 2023-12-25 13:48 | Emergency (ER) | payer MEDICARE, MEDICAID, SELFPAY ==
[2023-12-25] VITALS (9 sets, daily range): BP systolic 99–196; BP diastolic 35–81; PULSE 66–87; RESP 18–20; TEMP 37–37.1; O2SAT 93–98; BMI 24.0
[2023-12-25] MEDS: ONDANSETRON 4MG/2ML VIAL 4 MG IV (13:59)
[2023-12-25 14:04] LABS: Basophils # 0.1 K/mm3 (0-0.2); Basophils % 0.6 % (0.1-2.0); Eosinophils # 0.2 K/mm3 (0.0-0.4); Eosinophils % 1.3 % (0.1-12.0); Hematocrit 30.3 % (37.0-47.0); Hemoglobin 9.7 g/dL (12.2-16.2); Lymphocytes # 3.1 K/mm3 (0.7-4.5); Lymphocytes % 26.7 % (10-50); Mean Corpuscular HGB Conc 32.1 g/dL (31.8-35.4); Mean Corpuscular Hemoglobin 30.2 pg (27.0-31.2); Mean Platelet Volume 9.5 fl (7.4-10.4); Monocytes # 0.6 K/mm3 (0.1-1.0); Neutrophils # 7.6 K/mm3 (1.8-7.8); Neutrophils % 66.3 % (37.0-80.0); Platelet Count 270 K/mm3 (142-424); Red Blood Count 3.22 M/mm3 (4.20-5.40); Red Cell Distribution Width 13.9 % (11.5-17.5); White Blood Count 11.5 K/mm3 (4.8-10.8)
[2023-12-25 14:05] LABS: Chloride 114 mmol/L (98-107); Potassium 4.5 mmoL/L (3.5-5.1); Sodium 139 mmol/L (136-145)
[2023-12-25 14:07] LABS: Blood Urea Nitrogen 36 mg/dl (7-17); Creatinine Clearance Estimated 18 mL/min (50-200); Estimated Glomerular Filt Rate 16 ml/min (>60); GFR (African American) 19 ML/MIN (>60)
[2023-12-25 14:08] LABS: Alanine Aminotransferase 16 U/L (12-78); Albumin Level 3.9 g/dl (3.5-5.0); Albumin/Globulin Ratio 1.2 (1.1-1.8); Alkaline Phosphatase 106 U/L (38-126); Anion Gap 13.5 mEq/L (5-15); Aspartate Amino Transferase 27 U/L (14-36); Calcium 8.8 mg/dl (8.4-10.2); Carbon Dioxide 16 mmol/L (22.0-30.0); Globulin 3.3 g/dL (1.3-3.2); Glucose 164 mg/dl (74-100); Total Protein,Serum 7.2 g/dl (6.3-8.2)
--- NOTE | 2023-12-25 14:09 | ED_ITS ---
Discharge Plan Disposition Patient Disposition: Home, Self-Care Condition: Good Prescriptions Prescriptions: New cefdinir 300 mg capsule 300 mg PO BID 10 Days Qty: 20 0RF ondansetron 4 mg tablet,disintegrating 4 mg PO Q6H PRN (Reason: nausea and vomiting) Qty: 10 0RF No Action aspirin 81 mg tablet,delayed release (DR/EC) 81 mg PO DAILY Qty: 90 3RF atorvastatin 40 mg tablet 40 mg PO HS Qty: 90 3RF cholecalciferol (vitamin D3) 25 mcg (1,000 unit) tablet 25 mcg PO DAILY Qty: 90 3RF ergocalciferol (vitamin D2) 1,250 mcg (50,000 unit) capsule 1,250 mcg PO WEEKLY Qty: 14 3RF metoprolol succinate 100 mg tablet extended release 24 hr 100 mg PO DAILY Qty: 90 3RF nitroglycerin 0.3 mg tablet, sublingual 0.3 mg sublingual Q5M PRN (Reason: chest pain) Qty: 25 0RF Rx Instructions: do not exceed 3 doses per episode glipizide 10 mg tablet extended release 24hr 10 mg PO DAILY Qty: 90 3RF diphenoxylate-atropine [Lomotil] 2.5-0.025 mg tablet 1 tab PO Q8H PRN (Reason: diarrhea) Qty: 90 0RF (DME) Veronique Ultra Briefs-Medium Misc See Rx Instructions .Route Qty: 80 0RF Rx Instructions: As directed mupirocin 2 % ointment 1 applic topical BID 10 Days Qty: 15 0RF sodium bicarbonate 650 mg tablet 650 mg PO DAILY PRN ferrous sulfate 325 mg (65 mg iron) tablet 325 mg PO DAILY hydralazine 25 mg tablet 25 mg PO TID Qty: 90 3RF levothyroxine [Synthroid] 50 mcg tablet 50 mcg PO DAILY Qty: 90 0RF Activity Restrictions/Add. Instructions Additional Instructions/Restrictions: Please call tomorrow to make an appointment with your PCP for follow-up blood work. Please keep your appointment with nephrology as scheduled. Please return to the emergency department for any worsening signs or symptoms including intractable nausea vomiting inability to tolerate oral intake as needed Clinical Impressions Clinical Impression: Acute kidney injury superimposed on chronic kidney disease Urinary tract infectious disease Qualifiers: Urinary tract infection type: site unspecified Hematuria presence: without hematuria Qualified Code(s): N39.0 - Urinary tract infection, site not specified Nausea & vomiting Qualifiers: Vomiting type: unspecified Qualified Code(s): R11.2 - Nausea with vomiting, unspecified Instructions Patient Instructions: DI for Diarrhea and Traveler's Diarrhea -- Adult, DI for Diarrhea and Traveler's Diarrhea -- Child, DI for Nausea -- Adult, DI for Nausea -- Child Discharge ED Provider: Jazmine Mcgee General Adult HPI <SAJI Rodríguez - Last Filed: 12/25/23 16:03> General Chief complaint: Nausea/Vomiting/Diarrhea Stated complaint: Hypertension Time Seen by Provider: 12/25/23 13:56 Mode of Arrival: EMS Source of Information: Patient and EMS Limitations: No Limitations Description of Symptoms (Recalled from ER Triage Doc. by RN): Patient presents to ED via [facility] with nausea/vomiting that started 30 minutes ago after walking to the store. Patient reports put her on a new blood pressure medication last and she has been taking it everyday x3 daily and she has been taking her blood pressure daily. History of Present Illness HPI narrative: Patient presents for evaluation of acute onset of nausea vomiting. Patient states that the vomiting and nausea started 30 minutes prior to arrival after walking to the store . Patient has no abdominal pain no diarrhea no chest pain shortness of breath fever chills hemoptysis hematochezia melena. Patient reports that she has been on a new blood pressure medication since last and has been compliant. Related Data Home Medications Medication Instructions Recorded Confirmed ferrous sulfate 325 mg (65 mg 325 mg PO DAILY 06/06/23 12/19/23 iron) tablet sodium bicarbonate 650 mg tablet 650 mg PO DAILY PRN 06/06/23 12/19/23 Previous Rx's Medication Instructions Recorded aspirin 81 mg tablet,delayed 81 mg PO DAILY Blood thinner #90 08/02/23 release tabs atorvastatin 40 mg tablet 40 mg PO HS High cholesterol #90 08/02/23 tabs cholecalciferol (vitamin D3) 25 25 mcg PO DAILY #90 tabs 08/02/23 mcg (1,000 unit) tablet diaper,brief,adult,disposable #80 ea 08/02/23 (Veronique Ultra Briefs-Medium) diphenoxylate-atropine 2.5 1 tab PO Q8H PRN diarrhea #90 tabs 08/02/23 mg-0.025 mg tablet (Lomotil) ergocalciferol (vitamin D2) 1,250 1,250 mcg PO WEEKLY Supplement #14 08/02/23 mcg (50,000 unit) capsule caps glipizide 10 mg tablet, extended 10 mg PO DAILY Diabetes #90 tabs 08/02/23 release 24 hr metoprolol succinate 100 mg 100 mg PO DAILY blood pressure #90 08/02/23 tablet,extended release 24 hr tabs nitroglycerin 0.3 mg sublingual 0.3 mg sublingual Q5M PRN chest 08/02/23 tablet pain #25 tabs levothyroxine 50 mcg tablet 50 mcg PO DAILY #90 tabs 08/03/23 (Synthroid) mupirocin 2 % topical ointment 1 applic topical BID infection 10 12/12/23 days #15 grams hydralazine 25 mg tablet 25 mg PO TID blood pressure #90 12/19/23 tabs cefdinir 300 mg capsule 300 mg PO BID 10 days #20 caps 12/25/23 ondansetron 4 mg disintegrating 4 mg PO Q6H PRN nausea and 12/25/23 tablet vomiting #10 tabs Allergies Allergy/AdvReac Type Severity Reaction Status Date / Time No Known Allergies Allergy Verified 12/19/23 14:05 [facility] <SAJI Rodríguez - Last Filed: 12/25/23 16:03> [facility] Disclaimer: The information contained in this section may have been updated after the patient was seen, as this information can be updated by other users. Medical History Elevated bilirubin Typical angina Hypothyroidism Hyperkalemia Type 2 diabetes mellitus with diabetic polyneuropathy, without long-term current use of insulin Diarrhea Dyspnea Type 2 diabetes mellitus Decreased pulses in feet Neuropathy Anxiety HLD (hyperlipidemia) Family History Other No significant family history Social History Smoking Status: Never smoker alcohol intake: never substance use type: denies use current occupational status: unemployed Travel in the last 8 weeks: None household members: significant other housing: house current occupational exposures/hazards: No caffeine: No <SAJI Rodríguez - Last Filed: 12/25/23 16:03> ROS Obtained: Yes Systems reviewed as appropriate & no additional complaints except as documented Physical Exam <SAJI Rodríguez - Last Filed: 12/25/23 16:03> General General appearance: alert and in no apparent distress Eye Eye exam: Present normal appearance and EOMI; Absent nystagmus ENT ENT exam: Present normal exam, normal oropharynx and mucous membranes moist Neck Neck exam: Present lymphadenopathy Chest Chest inspection: Present normal inspection and symmetric chest wall rise Respiratory Respiratory exam: Present normal lung sounds bilaterally; Absent respiratory distress Cardiovascular Cardiovascular exam: Present regular rate, normal rhythm and normal heart sounds Abdominal Exam Abdominal exam: Present soft and hyperactive bowel sounds; Absent tenderness, guarding or rebound Back Exam Back exam: Present normal inspection and full ROM; Absent tenderness Neurological Exam Neurological exam: Present alert and oriented X3 Skin Skin exam: Present warm, dry and normal color Medical Decision Making <SAJI Rodríguez - Last Filed: 12/25/23 16:03> Medical Records Medical records reviewed: Yes I reviewed the patient's medical records. George Inquiry Pt receiving controlled substance: No Vital Signs: 12/25/23 13:50 12/25/23 14:01 12/25/23 14:25 Temperature 98.6 F Temperature Source Oral Pulse Rate 76 Pulse Rate [Right Radial] 87 Respiratory Rate 18 Blood Pressure 186/74 H 186/74 H Blood Pressure [Right Arm] 196/81 H Blood Pressure Mean 111 Blood Pressure Mean [Right Arm] 119 Blood Pressure Source Blood Pressure Source [Right Arm] Automatic Cuff Blood Pressure Position Blood Pressure Position [Right Arm] Supine 02 Sat by Pulse Oximetry 96 98 Oxygen Delivery Method Room Air 12/25/23 14:30 12/25/23 15:02 12/25/23 15:15 Temperature Temperature Source Pulse Rate 66 72 73 Pulse Rate [Right Radial] Respiratory Rate Blood Pressure 180/77 H 99/77 L 115/52 L Blood Pressure [Right Arm] Blood Pressure Mean 85 94 Blood Pressure Mean [Right Arm] Blood Pressure Source Blood Pressure Source [Right Arm] Blood Pressure Position Blood Pressure Position [Right Arm] 02 Sat by Pulse Oximetry 96 94 L 93 L Oxygen Delivery Method 12/25/23 15:31 12/25/23 15:34 12/25/23 16:36 Temperature 98.8 F Temperature Source Oral Pulse Rate 86 Pulse Rate [Right Radial] Respiratory Rate 20 Blood Pressure 102/35 L 105/48 L 124/80 Blood Pressure [Right Arm] Blood Pressure Mean 57 67 Blood Pressure Mean [Right Arm] Blood Pressure Source Automatic Cuff Blood Pressure Source [Right Arm] Blood Pressure Position Supine Blood Pressure Position [Right Arm] 02 Sat by Pulse Oximetry 98 Oxygen Delivery Method Room Air Lab Data Lab results reviewed: Yes I reviewed the patient's lab results. Lab Results 12/25/23 13:51: WBC 11.5 H, RBC 3.22 L, Hgb 9.7 L, Hct 30.3 L, MCV 94.0, MCH 30.2, MCHC 32.1, RDW 13.9, Plt Count 270, MPV 9.5, Neut % (Auto) 66.3, Lymph % (Auto) 26.7, Storey % (Auto) 5.0, Eos % (Auto) 1.3, Baso % (Auto) 0.6, Neut # (Auto) 7.6, Lymph # (Auto) 3.1, Storey # (Auto) 0.6, Eos # (Auto) 0.2, Baso # (Auto) 0.1, Sodium 139, Potassium 4.5, Chloride 114 H, Carbon Dioxide 16 L, Anion Gap 13.5, BUN 36 H, Creatinine 3.00 H, Estimated Creat Clear 18, Estimated GFR 16 L*, Est GFR ( Amer) 19 L*, Glucose 164 H, Calcium 8.8, Total Bilirubin 1.0, AST 27, ALT 16, Alkaline Phosphatase 106, Troponin I 0.03, Total Protein 7.2, Albumin 3.9, Globulin 3.3 H, Albumin/Globulin Ratio 1.2 12/25/23 14:38: Urine Color Yellow, Urine Appearance Clear, Urine pH 6.5, Ur Specific Abernathy 1.010, Urine Protein 1+, Urine Glucose (UA) Negative, Urine Ketones Negative, Urine Blood Negative, Urine Nitrate Negative, Urine Bilirubin Negative, Urine Urobilinogen 0.2, Ur Leukocyte Esterase 1+ A, Urine RBC None, Urine WBC Occasional, Ur Squamous Epith Cells 5-10, Triple Phos Crystals 1+, Urine Bacteria 2+ 12/25/23 13:51 12/25/23 13:51 Orders (Tests/Meds): ED MEDICATIONS Discontinued Medications Generic Name Dose Route Start Last Admin Trade Name Roger PRN Reason Stop Dose Admin Lactated Ringer's 1,640 mls @ 820 mls/hr 12/25/23 14:33 12/25/23 14:42 Lactated Ringer's 1000 Ml Bag 30 ml/kg infuse over 2 hr (1640 ml) 12/25/23 16:32 820 mls/hr IV Administration .Q2H ONE Ceftriaxone Sodium 1 gm/ 50 mls @ 100 mls/hr 12/25/23 16:00 12/25/23 16:09 Sodium Chloride IV 01/04/24 15:59 100 mls/hr Q24H DEXTER Administration Labetalol HCl 20 mg 12/25/23 13:57 12/25/23 14:25 Labetalol 20mg/4ml Syringe IV 12/25/23 13:58 20 mg ONCE ONE Administration Ondansetron HCl 4 mg 12/25/23 13:57 12/25/23 13:59 Ondansetron 4mg/2ml Vial IV 12/25/23 13:58 4 mg ONCE ONE Administration Promethazine HCl 12.5 mg 12/25/23 14:03 12/25/23 14:25 Promethazine Hcl 25mg/Ml 1ml Vial IV 12/25/23 14:04 12.5 mg ONCE ONE Administration Sodium Chloride 25 ml 12/25/23 14:03 12/25/23 14:25 Sodium Chloride 0.9% 25ml Bag IV 12/25/23 14:04 25 ml ONCE ONE Administration ORDERS Category Date Time Status CBC w/Auto Diff [Complete Blood Count Auto Diff] Stat Lab 12/25/23 13:51 Completed CMP [Comprehensive Metabolic Panel] Stat Lab 12/25/23 13:51 Completed Trop I [Troponin I] Stat Lab 12/25/23 13:51 Completed UA [Urinalysis and Microscopic] Stat Lab 12/25/23 14:38 Completed Urine Culture Stat Micro 12/25/23 14:38 Received HEART Score History (anamnesis): Slightly suspicious ECG: Normal Age: >65 years Risk factors: Atherosclerosis history Medical Decision Narrative: In summary patient is a 68-year-old female who presents to the emergency department for evaluation of nausea vomiting. Patient is hypertensive with a blood pressure of 196/81 on arrival but satting at 96% on room air pulse 87 respiratory rate 18 upon arrival, afebrile. Physical exam is unremarkable and nonfocal including no abdominal pain no chest pain to palpation normal breath sounds normal heart sounds hyperactive bowel sounds. Differential diagnosis includes ACS versus enteritis. Initial workup will be conducted with hematologic labs twelve-lead EKG. Initial interventions include crystalloid bolus Tylenol and Phenergan. Initial workup reviewed by me shows worsening renal function with increase in her creatinine to 3.0 in her normal baseline appears to be about 2.1 and a GFR of 16 down from her apparent baseline of around 20 white count of 11.5 with no shift. Upon repeat evaluation patient now has a blood pressure of 115 systolic heart rate is 75 and has resolution of her nausea vomiting.. Given this I had interactive discussion about her findings including possibilities of admission or follow-up closely as an outpatient. Patient has an appointment with her nuclear unit operator on January 09 and via patient directed decision making she is elected to go home with oral antibiotics and close follow-up with her PCP. <Derrick Hancock MD - Last Filed: 12/27/23 07:15> Vital Signs: 12/25/23 13:50 12/25/23 14:01 12/25/23 14:25 Temperature 98.6 F Temperature Source Oral Pulse Rate 76 Pulse Rate [Right Radial] 87 Respiratory Rate 18 Blood Pressure 186/74 H 186/74 H Blood Pressure [Right Arm] 196/81 H Blood Pressure Mean 111 Blood Pressure Mean [Right Arm] 119 Blood Pressure Source Blood Pressure Source [Right Arm] Automatic Cuff Blood Pressure Position Blood Pressure Position [Right Arm] Supine 02 Sat by Pulse Oximetry 96 98 Oxygen Delivery Method Room Air 12/25/23 14:30 12/25/23 15:02 12/25/23 15:15 Temperature Temperature Source Pulse Rate 66 72 73 Pulse Rate [Right Radial] Respiratory Rate Blood Pressure 180/77 H 99/77 L 115/52 L Blood Pressure [Right Arm] Blood Pressure Mean 85 94 Blood Pressure Mean [Right Arm] Blood Pressure Source Blood Pressure Source [Right Arm] Blood Pressure Position Blood Pressure Position [Right Arm] 02 Sat by Pulse Oximetry 96 94 L 93 L Oxygen Delivery Method 12/25/23 15:31 12/25/23 15:34 12/25/23 16:36 Temperature 98.8 F Temperature Source Oral Pulse Rate 86 Pulse Rate [Right Radial] Respiratory Rate 20 Blood Pressure 102/35 L 105/48 L 124/80 Blood Pressure [Right Arm] Blood Pressure Mean 57 67 Blood Pressure Mean [Right Arm] Blood Pressure Source Automatic Cuff Blood Pressure Source [Right Arm] Blood Pressure Position Supine Blood Pressure Position [Right Arm] 02 Sat by Pulse Oximetry 98 Oxygen Delivery Method Room Air Lab Data Lab Results 12/25/23 13:51: WBC 11.5 H, RBC 3.22 L, Hgb 9.7 L, Hct 30.3 L, MCV 94.0, MCH 30.2, MCHC 32.1, RDW 13.9, Plt Count 270, MPV 9.5, Neut % (Auto) 66.3, Lymph % (Auto) 26.7, Storey % (Auto) 5.0, Eos % (Auto) 1.3, Baso % (Auto) 0.6, Neut # (Auto) 7.6, Lymph # (Auto) 3.1, Storey # (Auto) 0.6, Eos # (Auto) 0.2, Baso # (Auto) 0.1, Sodium 139, Potassium 4.5, Chloride 114 H, Carbon Dioxide 16 L, Anion Gap 13.5, BUN 36 H, Creatinine 3.00 H, Estimated Creat Clear 18, Estimated GFR 16 L*, Est GFR ( Amer) 19 L*, Glucose 164 H, Calcium 8.8, Total Bilirubin 1.0, AST 27, ALT 16, Alkaline Phosphatase 106, Troponin I 0.03, Total Protein 7.2, Albumin 3.9, Globulin 3.3 H, Albumin/Globulin Ratio 1.2 12/25/23 14:38: Urine Color Yellow, Urine Appearance Clear, Urine pH 6.5, Ur Specific Abernathy 1.010, Urine Protein 1+, Urine Glucose (UA) Negative, Urine Ketones Negative, Urine Blood Negative, Urine Nitrate Negative, Urine Bilirubin Negative, Urine Urobilinogen 0.2, Ur Leukocyte Esterase 1+ A, Urine RBC None, Urine WBC Occasional, Ur Squamous Epith Cells 5-10, Triple Phos Crystals 1+, Urine Bacteria 2+ Orders (Tests/Meds): ED MEDICATIONS Discontinued Medications Generic Name Dose Route Start Last Admin Trade Name Freq PRN Reason Stop Dose Admin Lactated Ringer's 1,640 mls @ 820 mls/hr 12/25/23 14:33 12/25/23 14:42 Lactated Ringer's 1000 Ml Bag 30 ml/kg infuse over 2 hr (1640 ml) 12/25/23 16:32 820 mls/hr IV Administration .Q2H ONE Ceftriaxone Sodium 1 gm/ 50 mls @ 100 mls/hr 12/25/23 16:00 12/25/23 16:09 Sodium Chloride IV 01/04/24 15:59 100 mls/hr Q24H DEXTER Administration Labetalol HCl 20 mg 12/25/23 13:57 12/25/23 14:25 Labetalol 20mg/4ml Syringe IV 12/25/23 13:58 20 mg ONCE ONE Administration Ondansetron HCl 4 mg 12/25/23 13:57 12/25/23 13:59 Ondansetron 4mg/2ml Vial IV 12/25/23 13:58 4 mg ONCE ONE Administration Promethazine HCl 12.5 mg 12/25/23 14:03 12/25/23 14:25 Promethazine Hcl 25mg/Ml 1ml Vial IV 12/25/23 14:04 12.5 mg ONCE ONE Administration Sodium Chloride 25 ml 12/25/23 14:03 12/25/23 14:25 Sodium Chloride 0.9% 25ml Bag IV 12/25/23 14:04 25 ml ONCE ONE Administration ORDERS Category Date Time Status CBC w/Auto Diff [Complete Blood Count Auto Diff] Stat Lab 12/25/23 13:51 Completed CMP [Comprehensive Metabolic Panel] Stat Lab 12/25/23 13:51 Completed Trop I [Troponin I] Stat Lab 12/25/23 13:51 Completed UA [Urinalysis and Microscopic] Stat Lab 12/25/23 14:38 Completed Urine Culture Stat Micro 12/25/23 14:38 Received Medical Decision Narrative: In summary patient is a 68-year-old female who presents to the emergency department for evaluation of nausea vomiting. Patient is hypertensive with a blood pressure of 196/81 on arrival but satting at 96% on room air pulse 87 respiratory rate 18 upon arrival, afebrile. Physical exam is unremarkable and nonfocal including no abdominal pain no chest pain to palpation normal breath sounds normal heart sounds hyperactive bowel sounds. Differential diagnosis includes ACS versus enteritis. Initial workup will be conducted with hematologic labs twelve-lead EKG. Initial interventions include crystalloid bolus Tylenol and Phenergan. Initial workup reviewed by me shows worsening renal function with increase in her creatinine to 3.0 in her normal baseline appears to be about 2.1 and a GFR of 16 down from her apparent baseline of around 20 white count of 11.5 with no shift. Upon repeat evaluation patient now has a blood pressure of 115 systolic heart rate is 75 and has resolution of her nausea vomiting.. Given this I had interactive discussion about her findings including possibilities of admission or follow-up closely as an outpatient. Patient has an appointment with her nuclear unit operator on January 09 and via patient directed decision making she is elected to go home with oral antibiotics and close follow-up with her PCP. I was consulted by the FAUSTINO, and we discussed the complexity of the problems being addressed. I approved the treatment and management plan for this patient's care in the Emergency Department, thus performing a substantive portion of the medical decision making. Derrick Hancock MD Critical Care <SAJI Rodríguez - Last Filed: 12/25/23 16:03> Critical Care Time Critical Care Time: No
[2023-12-25 14:20] LABS: Troponin I 0.03 ng/ml (0.00-0.034)
--- NOTE | 2023-12-25 14:24 | ECG_ITS ---
APPROVED REPORT Exam: Resting ECG HR:80 bpm ECG Measurements Heart Rate 80 AXES MN 161 P -7 QRSd 93 QRS -41 QT 365 T 81 QTc 401 Conclusion SINUS RHYTHM LEFT AXIS DEVIATION [QRS AXIS < -30] PATTERN CONSISTENT WITH PULMONARY DISEASE LEFT VENTRICULAR HYPERTROPHY AND ST-T CHANGE [VOLTAGE CRITERIA PLUS ST/T ABNORMALITY] POSSIBLE SEPTAL MYOCARDIAL INFARCTION , OF INDETERMINATE AGE [30 ms Q WAVE IN V1/V2] Electronically signed by : KIRK BELL, 12/27/2023 15:48:02
[2023-12-25] MEDS: PROMETHAZINE HCL 25MG/ML 1ML VIAL 12.5 MG IV (14:25)
[2023-12-25] MEDS: LABETALOL 20MG/4ML SYRINGE 20 MG IV (14:25)
[2023-12-25] MEDS: SODIUM CHLORIDE 0.9% 25ML BAG 25 ML IV (14:25)
[2023-12-25] MEDS: LACTATED RINGERS 1000ML 1,640 ML 820 ML IV (14:42)
[2023-12-25 15:02] LABS: Microscopic, Urine URINE MICROSCOPIC (MICROSCOPIC)
[2023-12-25 15:10] LABS: Appearance,Urine CLEAR (Clear); Bilirubin,Urine Negative (Negative); Blood, Urine Negative (Negative); Color,Urine YELLOW (Yellow); Glucose,Urine (UA) Negative (Negative); Ketones,Urine Negative (Negative); Leukocyte Esterase,Urine 1+ (Negative); Nitrate,Urine Negative (Negative); PH,Urine 6.5 (5.0-8.5); Protein,Urine 1+ (Negative); Urobilinogen,Urine 0.2 EU/dl (0.2)
[2023-12-25 15:49] LABS: Bacteria,Urine 2+ /lpf; Triple Phosphate Crystal,Urine 1+ /lpf; WBC,Urine Occasional #/hpf (0-3)
[2023-12-25] MEDS: CEFTRIAXONE SODIUM 1 GM in 0.9 % SODIUM CHLORIDE 50 ML IV (16:09)
== END 2023-12-25 16:37 | disposition home or self-care (01) ==
PROVIDERS: Emergency Medicine; Emergency Provider Emergency Medicine; PCP Physician Assistant
DX: N39.0 Urinary tract infection, site not specified (principal); B96.89 Other specified bacterial agents as the cause of diseases classified elsewhere; N17.9 Acute kidney failure, unspecified; R11.2 Nausea with vomiting, unspecified; E03.9 Hypothyroidism, unspecified; I12.9 Hypertensive chronic kidney disease with stage 1 through stage 4 chronic kidney disease, or unspecified chronic kidney disease; N18.30 Chronic kidney disease, stage 3 unspecified; E11.22 Type 2 diabetes mellitus with diabetic chronic kidney disease; Z79.84 Long term (current) use of oral hypoglycemic drugs
CPT/HCPCS: 80053; 81001; 84484; 85025; 87086; 93005; 96365; 96375; 99284; J0696; J2405

== ENCOUNTER 2023-12-27 10:35 | Outpatient (CLI) | payer MEDICARE, MEDICAID, SELFPAY ==
--- NOTE | 2023-12-27 10:35 | CA_ITS ---
FINAL REPORT TECHNIQUE: extremity venous duplex was performed with augmentation and compression. CLINICAL HISTORY: edema LLE, r/o dvt COMPARISON: None FINDINGS: LEFT LOWER EXTREMITY VENOUS DOPPLER: Proper flow is seen throughout the left lower extremity deep venous system. There is no evidence of deep venous thrombosis. IMPRESSION: No evidence of deep venous thrombosis in the left lower extremity. Reviewed, Interpreted and Dictated by Ryan Streeter MD Transcribed by Coby Mcdaniel Authenticated and . [facility]
--- NOTE | 2023-12-27 10:48 | XR_ITS ---
FINAL REPORT CLINICAL HISTORY: Diabetic foot ulcer COMPARISON: None FINDINGS: LEFT FOOT: 3 images of the left foot were obtained. There is no evidence of fracture or dislocation. The joint spaces are intact. There is no soft tissue abnormality identified. A moderate-sized plantar calcaneal spur is present. IMPRESSION: Moderate plantar calcaneal spur. Reviewed, Interpreted and Dictated by Ryna tSreeter MD Transcribed by Coby Mcdaniel Authenticated and [facility]
[2023-12-27 10:52] LABS: Basophils # 0.1 K/mm3 (0-0.2); Basophils % 0.7 % (0.1-2.0); Eosinophils # 0.2 K/mm3 (0.0-0.4); Hematocrit 29.8 % (37.0-47.0); Hemoglobin 9.2 g/dL (12.2-16.2); Lymphocytes # 2.3 K/mm3 (0.7-4.5); Lymphocytes % 19.6 % (10-50); Mean Corpuscular Hemoglobin 30.6 pg (27.0-31.2); Mean Corpuscular Volume 98.8 fl (81-99); Mean Platelet Volume 10.2 fl (7.4-10.4); Monocytes # 0.5 K/mm3 (0.1-1.0); Monocytes % 4.4 % (1.7-9.3); Neutrophils # 8.6 K/mm3 (1.8-7.8); Neutrophils % 73.2 % (37.0-80.0); Platelet Count 276 K/mm3 (142-424); Red Blood Count 3.02 M/mm3 (4.20-5.40); White Blood Count 11.8 K/mm3 (4.8-10.8)
[2023-12-27 11:33] LABS: Erythrocyte Sedimentation Rate 99 mm/hr (0-30)
[2023-12-27 11:42] LABS: Alanine Aminotransferase 15 U/L (12-78); Albumin Level 3.6 g/dl (3.5-5.0); Albumin/Globulin Ratio 1.3 (1.1-1.8); Alkaline Phosphatase 101 U/L (38-126); Aspartate Amino Transferase 25 U/L (14-36); Chloride 113 mmol/L (98-107); Globulin 2.8 g/dL (1.3-3.2); Glucose 150 mg/dl (74-100); Sodium 140 mmol/L (136-145); Total Protein,Serum 6.4 g/dl (6.3-8.2)
[2023-12-27 11:45] LABS: Anion Gap 14.1 mEq/L (5-15); Blood Urea Nitrogen 34 mg/dl (7-17); Carbon Dioxide 18 mmol/L (22.0-30.0); Estimated Glomerular Filt Rate 14 ml/min (>60); GFR (African American) 17 ML/MIN (>60); Potassium 5.1 mmoL/L (3.5-5.1)
[2023-12-27 11:49] LABS: C-Reactive Protein 11.8 mg/L (0-4)
[2023-12-27 14:04] LABS: Hemoglobin A1C 6.4 % (4.0-6.0)
== END 2023-12-27 23:59 | disposition home or self-care (01) ==
LOC: RT 10:35
PROVIDERS: Nurse Practitioner; PCP Physician Assistant; Visit Provider Nurse Practitioner
DX: R60.0 Localized edema (principal); I73.9 Peripheral vascular disease, unspecified; E11.621 Type 2 diabetes mellitus with foot ulcer; L97.509 Non-pressure chronic ulcer of other part of unspecified foot with unspecified severity; M79.672 Pain in left foot; S91.302A Unspecified open wound, left foot, initial encounter; Z79.84 Long term (current) use of oral hypoglycemic drugs
CPT/HCPCS: 36415; 73630; 80053; 83036; 85025; 85651; 86140; 93971

== ENCOUNTER 2024-01-02 10:43 | Outpatient (CLI) | payer MEDICARE, SELFPAY ==
--- NOTE | 2024-01-02 10:43 | US_ITS ---
FINAL REPORT CLINICAL HISTORY: PVD, wounds Left great toe, claudication, smoker, cad,mi COMPARISON: None FINDINGS: ANKLE-BRACHIAL PRESSURE INDICES Pressure indices are as follows: RIGHT LOWER EXTREMITY: Ankle-brachial pressure index: 1.02 Comments: Normal LEFT LOWER EXTREMITY: Ankle-brachial pressure index: 1.08 Comments: Normal IMPRESSION: No evidence of significant obstructive peripheral vascular disease of the lower extremities Reviewed, Interpreted and Dictated by Ryan Streeter MD Transcribed by Lissy Feliciano Authenticated and . [facility]
== END 2024-01-02 23:59 | disposition home or self-care (01) ==
LOC: RT 10:43
PROVIDERS: PCP Physician Assistant; Visit Provider Nurse Practitioner
DX: I73.9 Peripheral vascular disease, unspecified (principal); S91.302A Unspecified open wound, left foot, initial encounter; R60.0 Localized edema
CPT/HCPCS: 93923

== ENCOUNTER 2024-01-03 08:58 | Outpatient (CLI) | payer MEDICARE, SELFPAY ==
[2024-01-03 09:09] LABS: Microscopic, Urine URINE MICROSCOPIC (MICROSCOPIC)
[2024-01-03 09:43] LABS: Hematocrit 28.9 % (37.0-47.0); Hemoglobin 9.1 g/dL (12.2-16.2); Mean Corpuscular HGB Conc 31.4 g/dL (31.8-35.4); Mean Corpuscular Hemoglobin 30.5 pg (27.0-31.2); Mean Corpuscular Volume 96.9 fl (81-99); Platelet Count 281 K/mm3 (142-424); Red Blood Count 2.99 M/mm3 (4.20-5.40); Red Cell Distribution Width 13.9 % (11.5-17.5); White Blood Count 10.5 K/mm3 (4.8-10.8)
[2024-01-03 09:48] LABS: Appearance,Urine CLEAR (Clear); Bilirubin,Urine Negative (Negative); Blood, Urine Negative (Negative); Color,Urine YELLOW (Yellow); Glucose,Urine (UA) Negative (Negative); Ketones,Urine Negative (Negative); Leukocyte Esterase,Urine 1+ (Negative); Nitrate,Urine Negative (Negative); PH,Urine 5.5 (5.0-8.5); Protein,Urine TRACE (Negative); Specific Gravity, Urine 1.025 (1.005-1.030); Urobilinogen,Urine 0.2 EU/dl (0.2)
[2024-01-03 09:53] LABS: Creatinine,Urine Random 97 mg/dL (Not Estab.)
[2024-01-03 10:35] LABS: WBC,Urine 20-50 #/hpf (0-3)
[2024-01-03 10:36] LABS: Bacteria,Urine Trace /lpf; Squamous Epithelial Cell,Urine 50-100 #/hpf (0-5)
[2024-01-03 10:44] LABS: Albumin Level 3.3 g/dl (3.5-5.0); Anion Gap 15.7 mEq/L (5-15); Blood Urea Nitrogen 26 mg/dl (7-17); Calcium 8.8 mg/dl (8.4-10.2); Carbon Dioxide 19 mmol/L (22.0-30.0); Chloride 110 mmol/L (98-107); Estimated Glomerular Filt Rate 19 ml/min (>60); GFR (African American) 23 ML/MIN (>60); Glucose 107 mg/dl (74-100); Phosphorous 5.1 mg/dl (2.5-4.5); Potassium 4.7 mmoL/L (3.5-5.1); Sodium 140 mmol/L (136-145)
[2024-01-03 10:59] LABS: 25-OH Vitamin D, Total 31.6 ng/mL (30-100)
[2024-01-03 19:25] LABS: Anion Gap 13.1 mEq/L (5-15); Blood Urea Nitrogen 27 mg/dl (7-17); Carbon Dioxide 21 mmol/L (22.0-30.0); Chloride 110 mmol/L (98-107); Estimated Glomerular Filt Rate 19 ml/min (>60); GFR (African American) 23 ML/MIN (>60); Glucose 100 mg/dl (74-100); Potassium 5.1 mmoL/L (3.5-5.1); Sodium 139 mmol/L (136-145)
== END 2024-01-03 23:59 | disposition home or self-care (01) ==
PROVIDERS: PCP Physician Assistant; Visit Provider Internal Medicine Nephrology
DX: R53.83 Other fatigue; N18.4 Chronic kidney disease, stage 4 (severe); D64.9 Anemia, unspecified; Z79.899 Other long term (current) drug therapy
CPT/HCPCS: 36415; 80048; 80069; 81001; 82306; 82570; 84156; 85014; 85018; 85048; 85049; 87086

== ENCOUNTER 2024-01-06 19:31 | Observation (INO) | payer MEDICARE, SELFPAY ==
[2024-01-06 19:32] VITALS: BP 149/116; PULSE 104; RESP 22; TEMP 36.8; O2SAT 98; BMI 23.0
--- NOTE | 2024-01-06 19:37 | ED_ITS ---
<Statement entered by Onel Taylor MD - 01/06/24 20:22> I was consulted by the FAUSTINO, and we discussed the complexity of the problems being addressed. I approved the treatment and management plan for this patient's care in the emergency department, thus performing a substantive portion of the medical decision making. Onel Taylor MD Discharge Plan Disposition Patient Disposition: Admitted Condition: Serious Chief Complaint: Nausea/Vomiting/Diarrhea Prescriptions Prescriptions: No Action aspirin 81 mg tablet,delayed release (DR/EC) 81 mg PO DAILY Qty: 90 3RF atorvastatin 40 mg tablet 40 mg PO HS Qty: 90 3RF cholecalciferol (vitamin D3) 25 mcg (1,000 unit) tablet 25 mcg PO DAILY Qty: 90 3RF ergocalciferol (vitamin D2) 1,250 mcg (50,000 unit) capsule 1,250 mcg PO WEEKLY Qty: 14 3RF metoprolol succinate 100 mg tablet extended release 24 hr 100 mg PO DAILY Qty: 90 3RF nitroglycerin 0.3 mg tablet, sublingual 0.3 mg sublingual Q5M PRN (Reason: chest pain) Qty: 25 0RF Rx Instructions: do not exceed 3 doses per episode glipizide 10 mg tablet extended release 24hr 10 mg PO DAILY Qty: 90 3RF diphenoxylate-atropine [Lomotil] 2.5-0.025 mg tablet 1 tab PO Q8H PRN (Reason: diarrhea) Qty: 90 0RF (DME) Veronique Ultra Briefs-Medium Misc See Rx Instructions .Route Qty: 80 0RF Rx Instructions: As directed mupirocin 2 % ointment 1 applic topical BID 10 Days Qty: 15 0RF famotidine [Pepcid] 40 mg tablet 40 mg PO DAILY Qty: 30 2RF ondansetron HCl 4 mg tablet 4 mg PO Q8H PRN (Reason: nausea and vomiting) Qty: 30 0RF (DME) lancets [FreeStyle Lancets] 28 gauge misc See Rx Instructions .Route Qty: 100 5RF Rx Instructions: As directed sodium bicarbonate 650 mg tablet 650 mg PO DAILY PRN ferrous sulfate 325 mg (65 mg iron) tablet 325 mg PO DAILY hydralazine 25 mg tablet 25 mg PO TID Qty: 90 3RF doxycycline hyclate 100 mg capsule 100 mg PO BID 14 Days Qty: 28 0RF levothyroxine [Synthroid] 50 mcg tablet 50 mcg PO DAILY Qty: 90 0RF (DME) FreeStyle Lite Strips Strip See Rx Instructions .Route Qty: 100 5RF Rx Instructions: tests BID cefdinir 300 mg capsule 300 mg PO BID 10 Days Qty: 20 0RF Referrals Follow up/Referrals: Provider,Referral, MD [Primary Care Provider] - See instructions Clinical Impressions Clinical Impression: Hematemesis, Nausea & vomiting Instructions Patient Instructions: DI for Diarrhea and Traveler's Diarrhea -- Adult, DI for Diarrhea and Traveler's Diarrhea -- Child, DI for Nausea -- Adult, DI for Nausea -- Child Discharge ED Provider: Onel Taylor General Adult HPI <SAJI Rodríguez - Last Filed: 01/06/24 20:17> General Chief complaint: Nausea/Vomiting/Diarrhea Stated complaint: vomiting Time Seen by Provider: 01/06/24 19:36 Mode of Arrival: EMS Source of Information: Patient Limitations: No Limitations Description of Symptoms (Recalled from ER Triage Doc. by RN): 68 yo female with acute onset of vomiting 1.5 hours ago. denies dyspnea,angina,back pain-only pain associated with continuous retching. denies diarrhea. denies uop issues. Last meal was earlier this after noon and was a self-made hot ham and cheese sandwich. no sick contact that she is awre of. afebrile History of Present Illness HPI narrative: Patient presents for evaluation of nausea vomiting but denies diarrhea. He states it began approximately 1800 hrs. unprovoked. She denies chest pain fever chills hemoptysis hematochezia melena but does have hematemesis on arrival. Related Data Home Medications Medication Instructions Recorded Confirmed ferrous sulfate 325 mg (65 mg 325 mg PO DAILY 06/06/23 01/03/24 iron) tablet sodium bicarbonate 650 mg tablet 650 mg PO DAILY PRN 06/06/23 01/03/24 Previous Rx's Medication Instructions Recorded aspirin 81 mg tablet,delayed 81 mg PO DAILY Blood thinner #90 08/02/23 release tabs atorvastatin 40 mg tablet 40 mg PO HS High cholesterol #90 08/02/23 tabs cholecalciferol (vitamin D3) 25 25 mcg PO DAILY #90 tabs 08/02/23 mcg (1,000 unit) tablet diaper,brief,adult,disposable #80 ea 08/02/23 (Veronique Ultra Briefs-Medium) diphenoxylate-atropine 2.5 1 tab PO Q8H PRN diarrhea #90 tabs 08/02/23 mg-0.025 mg tablet (Lomotil) ergocalciferol (vitamin D2) 1,250 1,250 mcg PO WEEKLY Supplement #14 08/02/23 mcg (50,000 unit) capsule caps glipizide 10 mg tablet, extended 10 mg PO DAILY Diabetes #90 tabs 08/02/23 release 24 hr metoprolol succinate 100 mg 100 mg PO DAILY blood pressure #90 08/02/23 tablet,extended release 24 hr tabs nitroglycerin 0.3 mg sublingual 0.3 mg sublingual Q5M PRN chest 08/02/23 tablet pain #25 tabs levothyroxine 50 mcg tablet 50 mcg PO DAILY #90 tabs 08/03/23 (Synthroid) mupirocin 2 % topical ointment 1 applic topical BID infection 10 12/12/23 days #15 grams hydralazine 25 mg tablet 25 mg PO TID blood pressure #90 12/19/23 tabs cefdinir 300 mg capsule 300 mg PO BID 10 days #20 caps 12/25/23 doxycycline hyclate 100 mg capsule 100 mg PO BID infection 14 days 12/27/23 #28 caps famotidine 40 mg tablet (Pepcid) 40 mg PO DAILY #30 tabs 01/03/24 lancets 28 gauge (FreeStyle #100 ea 01/03/24 Lancets) ondansetron HCl 4 mg tablet 4 mg PO Q8H PRN nausea and 01/03/24 vomiting #30 tabs blood sugar diagnostic (FreeStyle #100 ea 01/04/24 Lite Strips) Allergies Allergy/AdvReac Type Severity Reaction Status Date / Time No Known Allergies Allergy Verified 01/03/24 10:37 [facility] <SAJI Rodríguez - Last Filed: 01/06/24 20:17> PFS Disclaimer: The information contained in this section may have been updated after the patient was seen, as this information can be updated by other users. Medical History CKD stage 3 due to type 2 diabetes mellitus PVD (peripheral vascular disease) Edema of left lower extremity Wound of left foot Elevated bilirubin Typical angina Hypothyroidism Hyperkalemia Type 2 diabetes mellitus with diabetic polyneuropathy, without long-term current use of insulin Diarrhea Dyspnea Type 2 diabetes mellitus Decreased pulses in feet Neuropathy Anxiety HLD (hyperlipidemia) Family History Other No significant family history Social History Smoking Status: Unknown if ever smoked alcohol intake: never substance use type: denies use current occupational status: unemployed Travel in the last 8 weeks: None household members: significant other housing: house current occupational exposures/hazards: No caffeine: No <SAJI Rodríguez - Last Filed: 01/06/24 20:17> ROS Obtained: Yes Systems reviewed as appropriate & no additional complaints except as documented Physical Exam <SAJI Rodríguez - Last Filed: 01/06/24 20:17> General General appearance: alert and other (Actively vomiting) Respiratory Respiratory exam: Present normal lung sounds bilaterally Cardiovascular Cardiovascular exam: Present normal rhythm, tachycardia and normal heart sounds Abdominal Exam Abdominal exam: Present soft, tenderness (Mild epigastric tenderness) and normal bowel sounds; Absent guarding, rebound or rigidity Neurological Exam Neurological exam: Present alert and oriented X3 Medical Decision Making <SAJI Rodríguez - Last Filed: 01/06/24 20:17> Medical Records Medical records reviewed: Yes I reviewed the patient's medical records. George Inquiry Pt receiving controlled substance: No Vital Signs: 01/06/24 19:32 Temperature 98.2 F Temperature Source Oral Pulse Rate [Right Brachial] 104 H Respiratory Rate 22 Blood Pressure [Right Arm] 149/116 H Blood Pressure Mean [Right Arm] 127 Blood Pressure Source [Right Arm] Automatic Cuff Blood Pressure Position [Right Arm] Sitting 02 Sat by Pulse Oximetry 98 Oxygen Delivery Method Room Air Lab Data Lab results reviewed: Yes I reviewed the patient's lab results. Lab Results 01/06/24 19:30: WBC 11.1 H, RBC 3.20 L, Hgb 9.8 L, Hct 30.8 L, MCV 96.3, MCH 30.5, MCHC 31.7 L, RDW 13.9, Plt Count 285, MPV 9.0, Neut % (Auto) 67.3, Lymph % (Auto) 24.7, [place] % (Auto) 6.2, Eos % (Auto) 1.2, Baso % (Auto) 0.7, Neut # (Auto) 7.5, Lymph # (Auto) 2.7, [place] # (Auto) 0.7, Eos # (Auto) 0.1, Baso # (Auto) 0.1, PT 11.0, INR 1.02, Sodium 139, Potassium 4.4, Chloride 112 H, Carbon Dioxide 17 L, Anion Gap 14.4, BUN 26 H, Creatinine 2.50 H, Estimated Creat Clear 21, Estimated GFR 19 L*, Est GFR ( Amer) 23 L, Glucose 153 H, Calcium 8.7, Magnesium 1.5 L, Total Bilirubin 0.9, AST 38 H, ALT 28, Alkaline Phosphatase 114, Troponin I 0.05 H, Total Protein 7.1, Albumin 3.9, Globulin 3.2, Albumin/Globulin Ratio 1.2, Lipase 89 01/06/24 19:43: Gastric Occult Blood Positive 01/06/24 19:30 01/06/24 19:30 Orders (Tests/Meds): ED MEDICATIONS Generic Name Dose Route Start Last Admin Trade Name Freq PRN Reason Stop Dose Admin Pantoprazole Sodium 80 mg/ 100 mls @ 10 mls/hr 01/06/24 19:45 Sodium Chloride IV 01/09/24 19:44 .Q10H DEXTER Discontinued Medications Generic Name Dose Route Start Last Admin Trade Name Freq PRN Reason Stop Dose Admin Acetaminophen 1,000 mg 01/06/24 19:39 Acetaminophen 1,000mg/100ml Vial IV 01/06/24 19:40 ONCE ONE Ondansetron HCl 4 mg 01/06/24 19:37 01/06/24 19:41 Ondansetron 4mg/2ml Vial IV 01/06/24 19:38 4 mg ONCE ONE Administration Promethazine HCl 12.5 mg 01/06/24 19:39 Promethazine Hcl 25mg/Ml 1ml Vial IV 01/06/24 19:40 ONCE ONE Sodium Chloride 25 ml 01/06/24 19:39 Sodium Chloride 0.9% 25ml Bag IV 01/06/24 19:40 ONCE ONE ORDERS Category Date Time Status Type and Screen Stat BBK 01/06/24 19:[address] abdomen pelvis w con Stat Cat Scan 01/06/24 19:40 Taken Complete Blood Count Auto Diff Stat Lab 01/06/24 19:30 Completed Comprehensive Metabolic Panel Stat Lab 01/06/24 19:30 Completed Diarrhea 23 Panel, PCR Stat Lab 01/06/24 20:01 Ordered INR [Prothrombin Time INR] Stat Lab 01/06/24 19:30 Completed Lactic Acid Stat Lab 01/06/24 19:55 Received Lipase Stat Lab 01/06/24 19:30 Completed Magnesium Stat Lab 01/06/24 19:30 Completed Occult Blood,Gastric Fluid Stat Lab 01/06/24 19:43 Completed Troponin I Q3H Lab 01/06/24 22:45 Ordered Troponin I Q3H Lab 01/07/24 01:45 Ordered Troponin I Stat Lab 01/06/24 19:30 Completed Medical Decision Narrative: In summary patient is a 68-year-old female who presents to the emergency department for evaluation of nausea vomiting. Patient is normotensive tachycardic upon arrival, afebrile. Physical exam shows an intractable vomiting patient who at the time of my exam is vomiting coffee-ground emesis. Patient has mild diffuse abdominal pain more focally in the epigastrium. Differential diagnosis includes upper GI bleed, Jana-Alcaraz tear, gastritis, gastroenteritis etc. Initial workup will be conducted with hematologic labs and I considered CT scan of the abdomen pelvis however patient has chronic renal failure with a chronically low GFR making a contrasted study contraindicated currently and uncontrastesd study being of limited benefit. Initial interventions include crystalloid bolus acetaminophen Zofran for which she was refractory and then Phenergan. Initial workup reviewed by me and shows that she is Gastroccult positive, H&H are stable at 9.8 and 30.8 respectively GFR is 19 creatinine to 2.5 magnesium of 1.5 initial troponin is 0.05. Given the above findings I have had an interactive discussion with hospital medicine about patient management. They have agreed for admission for further evaluation and care. <Onel Taylor MD - Last Filed: 01/06/24 19:44> Vital Signs: 01/06/24 19:32 Temperature 98.2 F Temperature Source Oral Pulse Rate [Right Brachial] 104 H Respiratory Rate 22 Blood Pressure [Right Arm] 149/116 H Blood Pressure Mean [Right Arm] 127 Blood Pressure Source [Right Arm] Automatic Cuff Blood Pressure Position [Right Arm] Sitting 02 Sat by Pulse Oximetry 98 Oxygen Delivery Method Room Air Lab Data Lab Results 01/06/24 19:30: WBC 11.1 H, RBC 3.20 L, Hgb 9.8 L, Hct 30.8 L, MCV 96.3, MCH 30.5, MCHC 31.7 L, RDW 13.9, Plt Count 285, MPV 9.0, Neut % (Auto) 67.3, Lymph % (Auto) 24.7, [place] % (Auto) 6.2, Eos % (Auto) 1.2, Baso % (Auto) 0.7, Neut # (Auto) 7.5, Lymph # (Auto) 2.7, [place] # (Auto) 0.7, Eos # (Auto) 0.1, Baso # (Auto) 0.1, PT 11.0, INR 1.02, Sodium 139, Potassium 4.4, Chloride 112 H, Carbon Dioxide 17 L, Anion Gap 14.4, BUN 26 H, Creatinine 2.50 H, Estimated Creat Clear 21, Estimated GFR 19 L*, Est GFR ( Amer) 23 L, Glucose 153 H, Calcium 8.7, Magnesium 1.5 L, Total Bilirubin 0.9, AST 38 H, ALT 28, Alkaline Phosphatase 114, Troponin I 0.05 H, Total Protein 7.1, Albumin 3.9, Globulin 3.2, Albumin/Globulin Ratio 1.2, Lipase 89 01/06/24 19:43: Gastric Occult Blood Positive Orders (Tests/Meds): ED MEDICATIONS Generic Name Dose Route Start Last Admin Trade Name Freq PRN Reason Stop Dose Admin Pantoprazole Sodium 80 mg/ 100 mls @ 10 mls/hr 01/06/24 19:45 Sodium Chloride IV 01/09/24 19:44 .Q10H DEXTER Discontinued Medications Generic Name Dose Route Start Last Admin Trade Name Freq PRN Reason Stop Dose Admin Acetaminophen 1,000 mg 01/06/24 19:39 Acetaminophen 1,000mg/100ml Vial IV 01/06/24 19:40 ONCE ONE Ondansetron HCl 4 mg 01/06/24 19:37 01/06/24 19:41 Ondansetron 4mg/2ml Vial IV 01/06/24 19:38 4 mg ONCE ONE Administration Promethazine HCl 12.5 mg 01/06/24 19:39 Promethazine Hcl 25mg/Ml 1ml Vial IV 01/06/24 19:40 ONCE ONE Sodium Chloride 25 ml 01/06/24 19:39 Sodium Chloride 0.9% 25ml Bag IV 01/06/24 19:40 ONCE ONE ORDERS Category Date Time Status Type and Screen Stat BBK 01/06/24 19:[address] abdomen pelvis w con Stat Cat Scan 01/06/24 19:40 Taken Complete Blood Count Auto Diff Stat Lab 01/06/24 19:30 Completed Comprehensive Metabolic Panel Stat Lab 01/06/24 19:30 Completed Diarrhea 23 Panel, PCR Stat Lab 01/06/24 20:01 Ordered INR [Prothrombin Time INR] Stat Lab 01/06/24 19:30 Completed Lactic Acid Stat Lab 01/06/24 19:55 Received Lipase Stat Lab 01/06/24 19:30 Completed Magnesium Stat Lab 01/06/24 19:30 Completed Occult Blood,Gastric Fluid Stat Lab 01/06/24 19:43 Completed Troponin I Q3H Lab 01/06/24 22:45 Ordered Troponin I Q3H Lab 01/07/24 01:45 Ordered Troponin I Stat Lab 01/06/24 19:30 Completed ECG Data Tracing #1: Independently interpreted by me, rate is 99, rhythm is regular, axis is leftward deviated, no ST elevation in anatomical contiguous leads, QTc 388. Critical Care <SAJI Rodríguez - Last Filed: 01/06/24 20:17> Critical Care Time Critical Care Time: No
--- NOTE | 2024-01-06 19:37 | ECG_ITS ---
APPROVED REPORT Exam: Resting ECG HR:99 bpm ECG Measurements Heart Rate 99 AXES NV 160 P 61 QRSd 90 QRS -55 QT 332 T 85 QTc 388 Conclusion SINUS RHYTHM PATTERN CONSISTENT WITH PULMONARY DISEASE LEFT ANTERIOR FASCICULAR BLOCK [QRS AXIS <= -45, QR IN I, RS IN II] LEFT VENTRICULAR HYPERTROPHY AND ST-T CHANGE [VOLTAGE CRITERIA PLUS ST/T ABNORMALITY] POSSIBLE SEPTAL MYOCARDIAL INFARCTION , OF INDETERMINATE AGE [30 ms Q WAVE IN V1/V2] ABNORMAL ECG Electronically signed by : GEOVANNI ABDALLA, 01/06/2024 22:14:02
[2024-01-06] MEDS: ONDANSETRON 4MG/2ML VIAL 4 MG IV (19:41)
[2024-01-06 19:43] LABS: Basophils # 0.1 K/mm3 (0-0.2); Basophils % 0.7 % (0.1-2.0); Eosinophils # 0.1 K/mm3 (0.0-0.4); Eosinophils % 1.2 % (0.1-12.0); Hematocrit 30.8 % (37.0-47.0); Hemoglobin 9.8 g/dL (12.2-16.2); Lymphocytes # 2.7 K/mm3 (0.7-4.5); Lymphocytes % 24.7 % (10-50); Mean Corpuscular HGB Conc 31.7 g/dL (31.8-35.4); Mean Corpuscular Hemoglobin 30.5 pg (27.0-31.2); Mean Corpuscular Volume 96.3 fl (81-99); Monocytes # 0.7 K/mm3 (0.1-1.0); Monocytes % 6.2 % (1.7-9.3); Neutrophils # 7.5 K/mm3 (1.8-7.8); Neutrophils % 67.3 % (37.0-80.0); Platelet Count 285 K/mm3 (142-424); Red Cell Distribution Width 13.9 % (11.5-17.5); White Blood Count 11.1 K/mm3 (4.8-10.8)
[2024-01-06] MEDS: SODIUM CHLORIDE 0.9% 25ML BAG 25 ML IV (19:45)
[2024-01-06] MEDS: PROMETHAZINE HCL 25MG/ML 1ML VIAL 12.5 MG IV (19:45)
[2024-01-06 19:47] LABS: Chloride 112 mmol/L (98-107); Potassium 4.4 mmoL/L (3.5-5.1); Sodium 139 mmol/L (136-145)
[2024-01-06 19:49] LABS: Blood Urea Nitrogen 26 mg/dl (7-17); Creatinine Clearance Estimated 21 mL/min (50-200); Estimated Glomerular Filt Rate 19 ml/min (>60); GFR (African American) 23 ML/MIN (>60)
[2024-01-06 19:50] LABS: Alanine Aminotransferase 28 U/L (12-78); Albumin Level 3.9 g/dl (3.5-5.0); Albumin/Globulin Ratio 1.2 (1.1-1.8); Alkaline Phosphatase 114 U/L (38-126); Anion Gap 14.4 mEq/L (5-15); Aspartate Amino Transferase 38 U/L (14-36); Bilirubin,Total 0.9 mg/dl (0.2-1.3); Calcium 8.7 mg/dl (8.4-10.2); Carbon Dioxide 17 mmol/L (22.0-30.0); Globulin 3.2 g/dL (1.3-3.2); Glucose 153 mg/dl (74-100); Total Protein,Serum 7.1 g/dl (6.3-8.2)
[2024-01-06 19:53] LABS: INR 1.02 (0.9-1.1)
[2024-01-06 19:57] LABS: Lipase 89 U/L (23-300); Magnesium 1.5 mg/dl (1.6-2.3)
[2024-01-06 20:00] VITALS: BP 178/87; PULSE 94; RESP 20; O2SAT 93
[2024-01-06] MEDS: PANTOPRAZOLE SODIUM 80 MG in 0.9 % SODIUM CHLORIDE 100 ML 10 MG IV (20:00)
[2024-01-06] MEDS: ACETAMINOPHEN 1,000MG/100ML VIAL 1000 MG IV (20:01)
[2024-01-06 20:03] LABS: Troponin I 0.05 ng/ml (0.00-0.034)
[2024-01-06 20:04] LABS: Occult Blood,Gastric Fluid Positive (Negative)
--- NOTE | 2024-01-06 20:11 | P.HP_ITS ---
History of Present Illness *Admission Date: 01/06/24 *Reason for visit:: hematemesis *History of present illness: This is a 68-year-old female with PMHx of NIDDM with neuropathy, CKD hypertension, hyperlipidemia, CAD, GERD with recently diagnosed cellulitis of the left toe, is started on doxycycline p.o. twice daily. Patient presents for evaluation of nausea vomiting but denies diarrhea. He states it began approximately 1800 hrs. unprovoked. She denies chest pain fever chills hemopty sis hematochezia melena but does have hematemesis on arrival. Of note patient was also seen by current December 23 for nausea, was discharge home on oral cefdinir, for suspected UTI. Presently, hemodynamically stable. Admitted for further management [facility] Disclaimer: The information contained in this section may have been updated after the patient was seen, as this information can be updated by other users. Medical History CKD stage 3 due to type 2 diabetes mellitus PVD (peripheral vascular disease) Edema of left lower extremity Wound of left foot Elevated bilirubin Typical angina Hypothyroidism Hyperkalemia Type 2 diabetes mellitus with diabetic polyneuropathy, without long-term current use of insulin Diarrhea Dyspnea Type 2 diabetes mellitus Decreased pulses in feet Neuropathy Anxiety HLD (hyperlipidemia) Family History Other No significant family history Social History (Updated 01/06/24 @ 21:39 by Uzma Swenson RN) Smoking Status: Unknown if ever smoked alcohol intake: never substance use type: denies use current occupational status: unemployed Travel in the last 8 weeks: None household members: significant other housing: house current occupational exposures/hazards: No caffeine: No Review of Systems Review of Systems Review of systems:: pertinent systems reviewed and negative unless documented below Meds Home Medications and Allergies Home Medications Medication Instructions Recorded Confirmed Type ferrous sulfate 325 mg (65 mg 325 mg PO DAILY 06/06/23 01/06/24 History iron) tablet sodium bicarbonate 650 mg tablet 650 mg PO DAILY PRN gerd 06/06/23 01/06/24 History aspirin 81 mg tablet,delayed 81 mg PO DAILY Blood thinner #90 08/02/23 01/06/24 Rx release tabs atorvastatin 40 mg tablet 40 mg PO HS High cholesterol #90 08/02/23 01/06/24 Rx tabs cholecalciferol (vitamin D3) 25 25 mcg PO DAILY #90 tabs 08/02/23 01/06/24 Rx mcg (1,000 unit) tablet diaper,brief,adult,disposable #80 ea 08/02/23 01/03/24 Rx (Veronique Ultra Briefs-Medium) diphenoxylate-atropine 2.5 1 tab PO Q8H PRN diarrhea #90 tabs 08/02/23 01/06/24 Rx mg-0.025 mg tablet (Lomotil) ergocalciferol (vitamin D2) 1,250 1,250 mcg PO WEEKLY Supplement #14 08/02/23 01/06/24 Rx mcg (50,000 unit) capsule caps glipizide 10 mg tablet, extended 10 mg PO DAILY Diabetes #90 tabs 08/02/23 01/06/24 Rx release 24 hr metoprolol succinate 100 mg 100 mg PO DAILY blood pressure #90 08/02/23 01/06/24 Rx tablet,extended release 24 hr tabs nitroglycerin 0.3 mg sublingual 0.3 mg sublingual Q5M PRN chest 08/02/23 01/06/24 Rx tablet pain #25 tabs levothyroxine 50 mcg tablet 50 mcg PO DAILY #90 tabs 08/03/23 01/06/24 Rx (Synthroid) mupirocin 2 % topical ointment 1 applic topical BID infection 10 12/12/23 01/06/24 Rx days #15 grams hydralazine 25 mg tablet 25 mg PO TID blood pressure #90 12/19/23 01/06/24 Rx tabs doxycycline hyclate 100 mg capsule 100 mg PO BID infection 14 days 12/27/23 01/06/24 Rx #28 caps famotidine 40 mg tablet (Pepcid) 40 mg PO DAILY #30 tabs 01/03/24 01/06/24 Rx lancets 28 gauge (FreeStyle #100 ea 01/03/24 01/03/24 Rx Lancets) ondansetron HCl 4 mg tablet 4 mg PO Q8H PRN nausea and 01/03/24 01/06/24 Rx vomiting #30 tabs blood sugar diagnostic (FreeStyle #100 ea 05/31/24 Rx Lite Strips) New Prescriptions to Start Prescriptions: Allergies Allergy/AdvReac Type Severity Reaction Status Date / Time No Known Allergies Allergy Verified 01/03/24 10:37 Exam Data for Last 24 hours Vital signs and Labs for Last 24 Hours: Temp Pulse Resp BP Pulse Ox O2 Del Method 98.2 F 104 H 22 149/116 H 98 Room Air 01/06/24 19:32 01/06/24 19:32 01/06/24 19:32 01/06/24 19:32 01/06/24 19:32 01/06/24 19:32 Laboratory Results - last 24 hr 01/06/24 19:30: WBC 11.1 H, RBC 3.20 L, Hgb 9.8 L, Hct 30.8 L, MCV 96.3, MCH 30.5, MCHC 31.7 L, RDW 13.9, Plt Count 285, MPV 9.0, Neut % (Auto) 67.3, Lymph % (Auto) 24.7, [place] % (Auto) 6.2, Eos % (Auto) 1.2, Baso % (Auto) 0.7, Neut # (Auto) 7.5, Lymph # (Auto) 2.7, [place] # (Auto) 0.7, Eos # (Auto) 0.1, Baso # (Auto) 0.1, PT 11.0, INR 1.02, Sodium 139, Potassium 4.4, Chloride 112 H, Carbon Dioxide 17 L, Anion Gap 14.4, BUN 26 H, Creatinine 2.50 H, Estimated Creat Clear 21, Estimated GFR 19 L*, Est GFR ( Amer) 23 L, Glucose 153 H, Calcium 8.7, Magnesium 1.5 L, Total Bilirubin 0.9, AST 38 H, ALT 28, Alkaline Phosphatase 114, Troponin I 0.05 H, Total Protein 7.1, Albumin 3.9, Globulin 3.2, Albumin/Globulin Ratio 1.2, Lipase 89 01/06/24 19:43: Gastric Occult Blood Positive I & O for Last 24 hours: Intake & Output 01/03/24 01/04/24 01/05/24 01/06/24 23:59 23:59 23:59 23:59 Weight 60.781 kg Constitutional Constitutional: no acute distress *Routine HEENT Exam Head: Present normocephalic Eye: Present EOMI and PERRL ENT: Present mucous membranes moist *Routine Neck Exam Neck: Present supple; Absent lymphadenopathy *Routine Respiratory Exam Respiratory: Present CTA bilaterally *Routine Cardiovascular Exam Cardiovascular: Present RRR *Routine Abdominal Exam Abdominal: Present soft and normoactive bowel sounds; Absent tenderness *Routine Rectal Exam Rectal:: deferred *Routine Genitalia Exam Genitalia:: deferred *Routine Extremities Exam Extremities: Absent cyanosis, clubbing or edema *Routine Skin Exam Skin: Present warm; Absent rash *Routine Neurological Exam Neurological: Present alert and oriented X3 H&P: Result Imaging and Cardiology EKG: Status: image reviewed by me and final report Assessment and Plan *Assessment and plan (1) Hematemesis: Status: Acute Qualifiers: Nausea presence: with nausea Qualified Code(s): K92.0 - Hematemesis Category: Medical Code(s): K92.0 - Hematemesis (2) Nausea & vomiting: Status: Acute Qualifiers: Vomiting type: unspecified Qualified Code(s): R11.2 - Nausea with vomiting, unspecified Category: Medical Code(s): R11.2 - Nausea with vomiting, unspecified (3) Cellulitis of great toe of left foot: Status: Acute Category: Medical Code(s): L03.032 - Cellulitis of left toe (4) CKD stage 3 due to type 2 diabetes mellitus: Status: Chronic Category: Medical Code(s): E11.22 - Type 2 diabetes mellitus with diabetic chronic kidney disease; N18.3 - Chronic kidney disease, stage 3 (moderate) (5) Hypothyroidism: Status: Chronic Qualifiers: Hypothyroidism type: unspecified Qualified Code(s): E03.9 - Hypothyroidism, unspecified Category: Medical Code(s): E03.9 - Hypothyroidism, unspecified (6) Hypertension: Status: Chronic Qualifiers: Hypertension type: essential hypertension Qualified Code(s): I10 - Essential (primary) hypertension Category: Medical Code(s): I10 - Essential (primary) hypertension (7) History of coronary artery stent placement: Status: Chronic Category: Surgical Code(s): Z95.5 - Presence of coronary angioplasty implant and graft (8) Coronary artery disease: Status: Chronic Qualifiers: Coronary Disease-Associated Artery/Lesion type: [place] artery [place] vs. transplanted heart: [place] heart Associated angina: without angina Qualified Code(s): I25.10 - Atherosclerotic heart disease of [place] coronary artery without angina pectoris Category: Medical Code(s): I25.10 - Atherosclerotic heart disease of [place] coronary artery without angina pectoris (9) HLD (hyperlipidemia): Status: Chronic Qualifiers: Hyperlipidemia type: mixed hyperlipidemia Qualified Code(s): E78.2 - Mixed hyperlipidemia Category: Medical Code(s): E78.5 - Hyperlipidemia, unspecified Plan 68-year-old female with PMHx of NIDDM with neuropathy, CKD hypertension, hyperlipidemia, CAD, with recently diagnosed cellulitis of the left toe, is started on doxycycline p.o. twice daily. Patient presents for evaluation of nausea vomiting and hematemesis. patient was prescribed cefdinir a week ago for suspected UTI, more recently on doxycycline PO for left toe cellulitis. On arriaval patient hemodynamically stable. Initial workup included stool blood occult positive, H&H are stable at 9.8 and 30.8 respectively GFR is 19 creatinine to 2.5 magnesium of 1.5 initial troponin is 0.05. CT of the abdomen was deferred due to renal function. Patient was placed on Protonix continuous infusion. Discussed findings with GI ED they request bed for admission. Medicine I agree for it. Plan as follows: -Hematemesis, nausea and vomiting. Likely secondary to gastritis by medicaments To rule out active gastric/peptic ulcer Patient admitted for monitoring Started on continue Protonix infusion Surgical consult Keep patient n.p.o. . Okay for ice chips Zofran IV for nausea and vomiting Repeat labs in the morning -Cellulitis of the right great toe On IV doxycycline Podiatric consult -Other chronic conditions: CKD stage III and diabetes [id number]: Monitor renal function. Daily CMP Monitor blood sugar Sliding scale Continue IV hydration Hypertension hypothyroidism CAD status post stent: Hold aspirin in the setting of GI bleed Resume hypertensive medications SCD for DVT prophylaxis Full code
--- NOTE | 2024-01-06 20:11 | PC.NURSE ---
pt given 2 warm blankets for comfort
--- NOTE | 2024-01-06 20:13 | PC.NURSE ---
Cale Garay PA-C s/w the hospitalist and Dr. Finnegan agrees to admit. Charge nurse Bandar Whitney RN s/w cell room supervisor and placed bed request.
[2024-01-06 20:14] LABS: Lactic Acid 1.2 mmol/L (0.7-2.1)
--- NOTE | 2024-01-06 20:16 | PC.NURSE ---
Patient admitted to room 215 for upper GI bleed to hospitalist; observation status.
--- NOTE | 2024-01-06 20:24 | PC.NURSE ---
rounded on patient, lights turned out for comfort, call light within reach
--- NOTE | 2024-01-06 20:42 | PC.NURSE ---
Attempted 4x to place NG tube with a 16f & 14f [place] Sump tube wo success. Pt asking to stop . She has not actively vomited for 20 min and I discussed this with Dr. Taylor. He stated if pt was not actively vomiting further, it was ok to hold off on re-attempting to place tube.
--- NOTE | 2024-01-06 20:50 | PC.NURSE ---
Gave report to Thomas on med/surg
[2024-01-06 20:52] VITALS: BP 182/87; PULSE 88; RESP 20; TEMP 36.8; O2SAT 95
[2024-01-06 21:51] LABS: POC Glucose,Bedside 186 (70-110)
[2024-01-06] MEDS: MAGNESIUM SULFATE IN WATER 2 GM/50 ML PIGGYBACK IV (22:08)
[2024-01-06] MEDS: DOXYCYCLINE HYCLATE 100 MG in 0.9 % SODIUM CHLORIDE 250 ML 166.667000000000002 MG IV (22:08)
--- NOTE | 2024-01-06 22:31 | PC.WOUNDNOTE ---
Left great toe
[2024-01-06 23:05] LABS: Troponin I 0.12 ng/ml (0.00-0.034)
[2024-01-07] VITALS (15 sets, daily range): BP systolic 105–182; BP diastolic 56–91; PULSE 59–82; RESP 15–18; TEMP 36.8–37.4; O2SAT 93–98; BMI 24.9
[2024-01-07 02:12] LABS: Troponin I 0.18 ng/ml (0.00-0.034)
--- NOTE | 2024-01-07 05:33 | PC.NURSE ---
Since arriving pt has had no complaints of any nausea or vomiting. Assisted pt to the BR a couple times throughout the night. Pt is A&O, on room air, with no requests at this time. call light within reach.
[2024-01-07 05:53] LABS: POC Glucose,Bedside 136 (70-110)
[2024-01-07] MEDS: PANTOPRAZOLE SODIUM 80 MG in 0.9 % SODIUM CHLORIDE 100 ML 10 MG IV (06:09)
[2024-01-07 06:12] LABS: Chloride 113 mmol/L (98-107); Potassium 4.8 mmoL/L (3.5-5.1); Sodium 137 mmol/L (136-145)
[2024-01-07 06:15] LABS: Alanine Aminotransferase 24 U/L (12-78); Albumin Level 3.1 g/dl (3.5-5.0); Albumin/Globulin Ratio 1.1 (1.1-1.8); Alkaline Phosphatase 105 U/L (38-126); Anion Gap 8.8 mEq/L (5-15); Aspartate Amino Transferase 30 U/L (14-36); Bilirubin,Total 1.1 mg/dl (0.2-1.3); Blood Urea Nitrogen 25 mg/dl (7-17); Calcium 8.4 mg/dl (8.4-10.2); Carbon Dioxide 20 mmol/L (22.0-30.0); Creatinine Clearance Estimated 23 mL/min (50-200); Estimated Glomerular Filt Rate 20 ml/min (>60); GFR (African American) 24 ML/MIN (>60); Globulin 2.7 g/dL (1.3-3.2); Glucose 121 mg/dl (74-100); Total Protein,Serum 5.8 g/dl (6.3-8.2)
[2024-01-07 06:18] LABS: Basophils # 0.1 K/mm3 (0-0.2); Basophils % 0.8 % (0.1-2.0); Eosinophils % 0.4 % (0.1-12.0); Hematocrit 27.7 % (37.0-47.0); Lymphocytes # 2.1 K/mm3 (0.7-4.5); Lymphocytes % 20.9 % (10-50); Mean Corpuscular HGB Conc 31.5 g/dL (31.8-35.4); Mean Corpuscular Hemoglobin 30.7 pg (27.0-31.2); Mean Corpuscular Volume 97.4 fl (81-99); Mean Platelet Volume 8.9 fl (7.4-10.4); Monocytes # 0.5 K/mm3 (0.1-1.0); Monocytes % 5.1 % (1.7-9.3); Neutrophils # 7.3 K/mm3 (1.8-7.8); Neutrophils % 72.8 % (37.0-80.0); Platelet Count 246 K/mm3 (142-424); Red Blood Count 2.84 M/mm3 (4.20-5.40); Red Cell Distribution Width 13.9 % (11.5-17.5)
[2024-01-07 06:23] LABS: Hemoglobin 8.6 g/dL (12.2-16.2)
--- NOTE | 2024-01-07 06:52 | EXP.POD.CONS ---
History of Present Illness *Admission Date: 01/06/24 *History of present illness: This is a 68-year-old female with PMHx of NIDDM with neuropathy, CKD hypertension, hyperlipidemia, CAD, GERD with recently diagnosed cellulitis of the left toe, is started on doxycycline p.o. twice daily. Patient presents for evaluation of nausea vomiting but denies diarrhea. He states it began approximately 1800 hrs. unprovoked. She denies chest pain fever chills hemoptysis hematochezia melena but does have hematemesis on arrival. Of note patient was also seen by current December 23 for nausea, was discharge home on oral cefdinir, for suspected UTI. Presently, hemodynamically stable. Admitted for further management -01/07/24: Patient was resting in bed prior to entry this morning, she stated she has slept well through the night no pain to her left hallux diabetic ulcer. Patient is currently n.p.o. for podiatry and GI consult. [facility] Disclaimer: The information contained in this section may have been updated after the patient was seen, as this information can be updated by other users. Medical History CKD stage 3 due to type 2 diabetes mellitus PVD (peripheral vascular disease) Edema of left lower extremity Wound of left foot Elevated bilirubin Typical angina Hypothyroidism Hyperkalemia Type 2 diabetes mellitus with diabetic polyneuropathy, without long-term current use of insulin Diarrhea Dyspnea Type 2 diabetes mellitus Decreased pulses in feet Neuropathy Anxiety HLD (hyperlipidemia) Family History Other No significant family history Social History (Updated 01/06/24 @ 21:39 by Uzma Swenson RN) Smoking Status: Unknown if ever smoked alcohol intake: never substance use type: denies use current occupational status: unemployed Travel in the last 8 weeks: None household members: significant other housing: house current occupational exposures/hazards: No caffeine: No Meds Home Medications and Allergies Home Medications Medication Instructions Recorded Confirmed Type ferrous sulfate 325 mg (65 mg 325 mg PO DAILY 06/06/23 01/07/24 History iron) tablet aspirin 81 mg tablet,delayed 81 mg PO DAILY Blood thinner #90 08/02/23 01/07/24 Rx release tabs atorvastatin 40 mg tablet 40 mg PO HS High cholesterol #90 08/02/23 01/07/24 Rx tabs cholecalciferol (vitamin D3) 25 25 mcg PO DAILY #90 tabs 08/02/23 01/07/24 Rx mcg (1,000 unit) tablet diaper,brief,adult,disposable #80 ea 08/02/23 01/07/24 Rx (Veronique Ultra Briefs-Medium) glipizide 10 mg tablet, extended 10 mg PO DAILY Diabetes #90 tabs 08/02/23 01/07/24 Rx release 24 hr metoprolol succinate 100 mg 100 mg PO DAILY blood pressure #90 08/02/23 01/07/24 Rx tablet,extended release 24 hr tabs nitroglycerin 0.3 mg sublingual 0.3 mg sublingual Q5M PRN chest 08/02/23 01/07/24 Rx tablet pain #25 tabs levothyroxine 50 mcg tablet 50 mcg PO DAILY #90 tabs 08/03/23 01/07/24 Rx (Synthroid) hydralazine 25 mg tablet 25 mg PO TID blood pressure #90 12/19/23 01/07/24 Rx tabs famotidine 40 mg tablet (Pepcid) 40 mg PO DAILY #30 tabs 01/03/24 01/07/24 Rx lancets 28 gauge (FreeStyle #100 ea 01/03/24 01/07/24 Rx Lancets) blood sugar diagnostic (FreeStyle #100 ea 01/04/24 01/07/24 Rx Lite Strips) diphenoxylate-atropine 2.5 1 tab PO Q8HP PRN diarrhea 01/07/24 01/07/24 History mg-0.025 mg tablet (Lomotil) doxycycline hyclate 100 mg capsule 100 mg PO BID 01/07/24 01/07/24 History ergocalciferol (vitamin D2) 1,250 1,250 mcg PO WEEKLY 01/07/24 01/07/24 History mcg (50,000 unit) capsule ondansetron HCl 4 mg tablet 4 mg PO Q8HP PRN nausea and 01/07/24 01/07/24 History vomiting New Prescriptions to Start Prescriptions: Allergies Allergy/AdvReac Type Severity Reaction Status Date / Time No Known Allergies Allergy Verified 01/03/24 10:37 Exam (Inpt) Vital signs and Labs for Last 24 Hours: Temp Pulse Resp BP Pulse Ox O2 Del Method 98.2 F 75 16 168/81 H 94 L Room Air 01/07/24 04:00 01/07/24 04:00 01/07/24 04:00 01/07/24 04:00 01/07/24 04:00 01/07/24 06:49 Laboratory Results - last 24 hr 01/06/24 19:30: WBC 11.1 H, RBC 3.20 L, Hgb 9.8 L, Hct 30.8 L, MCV 96.3, MCH 30.5, MCHC 31.7 L, RDW 13.9, Plt Count 285, MPV 9.0, Neut % (Auto) 67.3, Lymph % (Auto) 24.7, Harvey % (Auto) 6.2, Eos % (Auto) 1.2, Baso % (Auto) 0.7, Neut # (Auto) 7.5, Lymph # (Auto) 2.7, Harvey # (Auto) 0.7, Eos # (Auto) 0.1, Baso # (Auto) 0.1, PT 11.0, INR 1.02, Sodium 139, Potassium 4.4, Chloride 112 H, Carbon Dioxide 17 L, Anion Gap 14.4, BUN 26 H, Creatinine 2.50 H, Estimated Creat Clear 21, Estimated GFR 19 L*, Est GFR ( Amer) 23 L, Glucose 153 H, Calcium 8.7, Magnesium 1.5 L, Total Bilirubin 0.9, AST 38 H, ALT 28, Alkaline Phosphatase 114, Troponin I 0.05 H, Total Protein 7.1, Albumin 3.9, Globulin 3.2, Albumin/Globulin Ratio 1.2, Lipase 89 01/06/24 19:43: Gastric Occult Blood Positive 01/06/24 19:55: Lactate 1.2, Blood Type A Positive, Antibody Screen Negative 01/06/24 21:43: POC Glucose 186 H 01/06/24 22:40: Troponin I 0.12 H 01/07/24 01:40: Troponin I 0.18 H 01/07/24 05:27: WBC 10.0, RBC 2.84 L, Hgb 8.6 L D, Hct 27.7 L, MCV 97.4, MCH 30.7, MCHC 31.5 L, RDW 13.9, Plt Count 246, MPV 8.9, Neut % (Auto) 72.8, Lymph % (Auto) 20.9, Harvey % (Auto) 5.1, Eos % (Auto) 0.4, Baso % (Auto) 0.8, Neut # (Auto) 7.3, Lymph # (Auto) 2.1, Harvey # (Auto) 0.5, Eos # (Auto) 0.0, Baso # (Auto) 0.1, Sodium 137, Potassium 4.8, Chloride 113 H, Carbon Dioxide 20 L, Anion Gap 8.8, BUN 25 H, Creatinine 2.40 H, Estimated Creat Clear 23, Estimated GFR 20 L, Est GFR ( Amer) 24 L, Glucose 121 H D, Calcium 8.4, Magnesium 2.0 D, Total Bilirubin 1.1, AST 30, ALT 24, Alkaline Phosphatase 105, Total Protein 5.8 L, Albumin 3.1 L D, Globulin 2.7, Albumin/Globulin Ratio 1.1 01/07/24 05:46: POC Glucose 136 H I & O for Labs for Last 24 Hours: Intake & Output 01/04/24 01/05/24 01/06/24 01/07/24 23:59 23:59 23:59 23:59 Intake Total 393 / 393 Output Total 0 / 0 0 / 0 Balance 0 / 0 393 / 393 Weight 134 lb 145 lb 14.4 oz Constitutional: Present no acute distress and cooperative Head: Present normocephalic Eye: Present as per HPI Neck: Present full ROM and trachea midline Respiratory: Present normal respiratory effort and able to speak in complete sentences Cardiac: Present posterior tibial pulses present and pedal pulses present Comment:: 1+ Pedal edema b/l. Comments:: deferred Rectal (female): Present deferred (female): Present deferred Extremities: Present full ROM, normal capillary refill and edema; Absent calf tenderness Comment:: 01/07/24: left hallux DFU 1.0 x 1.0 x 0.1cm , no drainage, 100% granular wound bed. #15 blade used to sharply debride DFU, good bleeding noted. Skin: Present erythema (Left hallux, DFU ) and warm Neuro: Present Motor Function Intact, Sensory Function Intact (Neuropathy, decreased sensation noted.), oriented x 3, tone normal and moves all extremities Ankle: bilateral: normal inspection and bilateral: decreased ROM Feet/Toes: left: erythema (left hallux DFU/cellulitis ), left: swelling and left: tenderness and bilateral: nail abnormalities Inspection: Present nail disorder and infection (Left Hallux DFU/cellulitis) Pulses: L dorsalis pedis pulse: normal, R dorsalis pedis pulse: normal, L posterior tibial pulse: normal and R posterior tibial pulse: normal CFT: normal: CFT Monofilament exam: L 1st metatarsals: decreased, L 3rd metatarsals: decreased, L 5th metatarsals: decreased, L great toe: decreased, L 3rd toe: decreased, L 5th toe: decreased, R 1st metatarsals: decreased, R 3rd metatarsals: decreased, R 5th metatarsals: decreased, R great toe: decreased, R 3rd toe: decreased and R 5th toe: decreased Pinprick: L great toe: abnormal and R great toe: abnormal Ankle reflex: Left: abnormal and Right: abnormal Results Labs 01/07/24 05:27 01/07/24 05:27 Labs: Abnormal lab results 01/06/24 01/06/24 01/06/24 Range/Units 19:30 21:43 22:40 WBC 11.1 H (4.8-10.8) K/mm3 RBC 3.20 L (4.20-5.40) M/mm3 Hgb 9.8 L (12.2-16.2) g/dL Hct 30.8 L (37.0-47.0) % MCHC 31.7 L (31.8-35.4) g/dL Chloride 112 H (98-107) mmol/L Carbon Dioxide 17 L (22.0-30.0) mmol/L BUN 26 H (7-17) mg/dl Creatinine 2.50 H (0.52-1.04) mg/dl Estimated GFR 19 L* (>60) ml/min Est GFR ( Amer) 23 L (>60) ML/MIN Glucose 153 H (74-100) mg/dl POC Glucose 186 H (70-110) Magnesium 1.5 L (1.6-2.3) mg/dl AST 38 H (14-36) U/L Troponin I 0.05 H 0.12 H (0.00-0.034) ng/ml Total Protein (6.3-8.2) g/dl Albumin (3.5-5.0) g/dl 01/07/24 01/07/24 01/07/24 Range/Units 01:40 05:27 05:46 WBC (4.8-10.8) K/mm3 RBC 2.84 L (4.20-5.40) M/mm3 Hgb 8.6 L D (12.2-16.2) g/dL Hct 27.7 L (37.0-47.0) % MCHC 31.5 L (31.8-35.4) g/dL Chloride 113 H (98-107) mmol/L Carbon Dioxide 20 L (22.0-30.0) mmol/L BUN 25 H (7-17) mg/dl Creatinine 2.40 H (0.52-1.04) mg/dl Estimated GFR 20 L (>60) ml/min Est GFR ( Amer) 24 L (>60) ML/MIN Glucose 121 H D (74-100) mg/dl POC Glucose 136 H (70-110) Magnesium (1.6-2.3) mg/dl AST (14-36) U/L Troponin I 0.18 H (0.00-0.034) ng/ml Total Protein 5.8 L (6.3-8.2) g/dl Albumin 3.1 L D (3.5-5.0) g/dl H & H 01/06/24 01/07/24 Range/Units 19:30 05:27 Hgb 9.8 L 8.6 L D (12.2-16.2) g/dL Hct 30.8 L 27.7 L (37.0-47.0) % Coagulation 01/06/24 Range/Units 19:30 INR 1.02 (0.9-1.1) All other labs normal. Assessment and Plan *Assessment and plan (1) Diabetic ulcer of toe of left foot associated with type 2 diabetes mellitus: Status: Acute Qualifiers: Non-pressure ulcer stage: with fat layer exposed Qualified Code(s): E11.621 - Type 2 diabetes mellitus with foot ulcer; L97.522 - Non-pressure chronic ulcer of other part of left foot with fat layer exposed Category: Medical Code(s): E11.621 - Type 2 diabetes mellitus with foot ulcer; L97.529 - Non-pressure chronic ulcer of other part of left foot with unspecified severity (2) Diabetic ulcer of toe of left foot: Status: Acute Qualifiers: Diabetes mellitus type: type 2 Non-pressure ulcer stage: with fat layer exposed Qualified Code(s): E11.621 - Type 2 diabetes mellitus with foot ulcer; L97.522 - Non-pressure chronic ulcer of other part of left foot with fat layer exposed Category: Medical Code(s): E11.621 - Type 2 diabetes mellitus with foot ulcer; L97.529 - Non-pressure chronic ulcer of other part of left foot with unspecified severity (3) Hematemesis: Status: Acute Qualifiers: Nausea presence: with nausea Qualified Code(s): K92.0 - Hematemesis Category: Medical Code(s): K92.0 - Hematemesis (4) Nausea & vomiting: Status: Acute Qualifiers: Vomiting type: unspecified Qualified Code(s): R11.2 - Nausea with vomiting, unspecified Category: Medical Code(s): R11.2 - Nausea with vomiting, unspecified (5) Cellulitis of great toe of left foot: Status: Acute Category: Medical Code(s): L03.032 - Cellulitis of left toe (6) CKD stage 3 due to type 2 diabetes mellitus: Status: Chronic Category: Medical Code(s): E11.22 - Type 2 diabetes mellitus with diabetic chronic kidney disease; N18.3 - Chronic kidney disease, stage 3 (moderate) (7) Hypothyroidism: Status: Chronic Qualifiers: Hypothyroidism type: unspecified Qualified Code(s): E03.9 - Hypothyroidism, unspecified Category: Medical Code(s): E03.9 - Hypothyroidism, unspecified (8) Hypertension: Status: Chronic Qualifiers: Hypertension type: essential hypertension Qualified Code(s): I10 - Essential (primary) hypertension Category: Medical Code(s): I10 - Essential (primary) hypertension (9) History of coronary artery stent placement: Status: Chronic Category: Surgical Code(s): Z95.5 - Presence of coronary angioplasty implant and graft (10) Coronary artery disease: Status: Chronic Qualifiers: Associated angina: without angina Coronary Disease-Associated Artery/Lesion type: [place] artery [place] vs. transplanted heart: [place] heart Qualified Code(s): I25.10 - Atherosclerotic heart disease of [place] coronary artery without angina pectoris Category: Medical Code(s): I25.10 - Atherosclerotic heart disease of [place] coronary artery without angina pectoris (11) HLD (hyperlipidemia): Status: Chronic Qualifiers: Hyperlipidemia type: mixed hyperlipidemia Qualified Code(s): E78.2 - Mixed hyperlipidemia Category: Medical Code(s): E78.5 - Hyperlipidemia, unspecified (12) Edema of left lower extremity: Status: Acute Category: Medical Code(s): R60.0 - Localized edema (13) Type 2 diabetes mellitus with diabetic polyneuropathy, without long-term current use of insulin: Status: Chronic Category: Medical Code(s): E11.42 - Type 2 diabetes mellitus with diabetic polyneuropathy Plan 68-year-old female with PMHx of NIDDM with neuropathy, CKD hypertension, hyperlipidemia, CAD, with recently diagnosed cellulitis of the left toe, is started on doxycycline p.o. twice daily. Patient presents for evaluation of nausea vomiting and hematemesis. patient was prescribed cefdinir a week ago for suspected UTI, more recently on doxycycline PO for left toe cellulitis. On arriaval patient hemodynamically stable. Initial workup included stool blood occult positive, H&H are stable at 9.8 and 30.8 respectively GFR is 19 creatinine to 2.5 magnesium of 1.5 initial troponin is 0.05. CT of the abdomen was deferred due to renal function. Patient was placed on Protonix continuous infusion. Discussed findings with GI ED they request bed for admission. Medicine I agree for it. Plan as follows: 01/07/24: Podiatry Consult -Patient admitted for Hematemesis, nausea and vomiting. Likely secondary to gastritis by medicaments To rule out active gastric/peptic ulcer -Patient has a GI consult with Dr. Apodaca this morning -Patient was started on Protonix infusion and Zofran IV for nausea and vomiting -Patient is to continue n.p.o. status for the GI consult okay for ice chips ALESSANDRO's Date of Service: 01/02/24, Procedure(s): US Arterial Lower Ext Rest, FINDINGS: ANKLE-BRACHIAL PRESSURE INDICES Pressure indices are as follows: RIGHT LOWER EXTREMITY: Ankle-brachial pressure index: 1.02 Comments: Normal LEFT LOWER EXTREMITY: Ankle-brachial pressure index: 1.08 Comments: Normal IMPRESSION: No evidence of significant obstructive peripheral vascular disease of the lower extremities Left hallux cellulitis/diabetic foot ulcer Patient is a patient of [facility] and podiatry and have been following her on her left hallux cellulitis and diabetic foot ulcer -Patient was started prior to admission on doxycycline 100 mg p.o. twice daily for 14 days. -Patient is now on IV doxycycline 100 mg twice daily -Patient's left hallux does appear to look better from when I saw her in the office last week -Still has some cellulitis with 1+ edema, good DP/PT pedal pulses noted -Patient had recent ABIs in December that were within normal limits. -Plan to obtain CT left foot without contrast to evaluate cellulitis/diabetic foot ulcer for any underlying infection, abscess or bone. -No plans for surgery at this time per podiatry. Patient will not need to remain n.p.o. from podiatry standpoint. -Left hallux was cleaned with Betadine, using curette and #15 blade to debride any loose tissue, no drainage noted, 1% granular wound bed noted. Site was cleaned again with Betadine and dressed with Ioplex, gauze, soft roll. -Additional labs ordered this morning ESR and CRP was added to her morning labs -Will continue to monitor patient while inpatient
--- NOTE | 2024-01-07 07:18 | P.CONS_ITS ---
History of Present Illness *Admission Date: 01/06/24 *Reason for visit:: GI bleed *History of present illness: Patient is a 68-year-old female who had presented to the emergency department in the evening of 01/06/2024 with acute onset of unprovoked vomiting. She states that it did not appear bloody. She has a history of stage III chronic kidney disease, arterial occlusive disease, hypothyroidism, type 2 diabetes, neuropathy, hyperlipidemia, coronary artery disease with non-STEMI and previous stenting. Upon arrival to the emergency department there was reportedly some hematemesis. She was admitted for inpatient management and surgical consultation was obtained for her reported hematemesis. She has apparent chronic anemia. She has a baseline hemoglobin of approximately 9. It was 9.8 upon presentation is 8.6 today. She is on iron supplementation. She has a BUN of 25 and creatinine of 2.4 which is essentially her recent baseline. She was admitted for inpatient management and surgical consultation for EGD. Patient has never had endoscopy or colonoscopy. [facility] Disclaimer: The information contained in this section may have been updated after the patient was seen, as this information can be updated by other users. Medical History CKD stage 3 due to type 2 diabetes mellitus PVD (peripheral vascular disease) Edema of left lower extremity Wound of left foot Elevated bilirubin Typical angina Hypothyroidism Hyperkalemia Type 2 diabetes mellitus with diabetic polyneuropathy, without long-term current use of insulin Diarrhea Dyspnea Type 2 diabetes mellitus Decreased pulses in feet Neuropathy Anxiety HLD (hyperlipidemia) Family History Other No significant family history Social History (Updated 01/06/24 @ 21:39 by Uzma Swenson RN) Smoking Status: Unknown if ever smoked alcohol intake: never substance use type: denies use current occupational status: unemployed Travel in the last 8 weeks: None household members: significant other housing: house current occupational exposures/hazards: No caffeine: No Meds Home Medications and Allergies Home Medications Medication Instructions Recorded Confirmed Type ferrous sulfate 325 mg (65 mg 325 mg PO DAILY 06/06/23 01/07/24 History iron) tablet aspirin 81 mg tablet,delayed 81 mg PO DAILY Blood thinner #90 08/02/23 01/07/24 Rx release tabs atorvastatin 40 mg tablet 40 mg PO HS High cholesterol #90 08/02/23 01/07/24 Rx tabs cholecalciferol (vitamin D3) 25 25 mcg PO DAILY #90 tabs 08/02/23 01/07/24 Rx mcg (1,000 unit) tablet diaper,brief,adult,disposable #80 ea 08/02/23 01/07/24 Rx (Veronique Ultra Briefs-Medium) glipizide 10 mg tablet, extended 10 mg PO DAILY Diabetes #90 tabs 08/02/23 01/07/24 Rx release 24 hr metoprolol succinate 100 mg 100 mg PO DAILY blood pressure #90 08/02/23 01/07/24 Rx tablet,extended release 24 hr tabs nitroglycerin 0.3 mg sublingual 0.3 mg sublingual Q5M PRN chest 08/02/23 01/07/24 Rx tablet pain #25 tabs levothyroxine 50 mcg tablet 50 mcg PO DAILY #90 tabs 08/03/23 01/07/24 Rx (Synthroid) hydralazine 25 mg tablet 25 mg PO TID blood pressure #90 12/19/23 01/07/24 Rx tabs famotidine 40 mg tablet (Pepcid) 40 mg PO DAILY #30 tabs 01/03/24 01/07/24 Rx lancets 28 gauge (FreeStyle #100 ea 01/03/24 01/07/24 Rx Lancets) blood sugar diagnostic (FreeStyle #100 ea 01/04/24 01/07/24 Rx Lite Strips) diphenoxylate-atropine 2.5 1 tab PO Q8HP PRN diarrhea 01/07/24 01/07/24 History mg-0.025 mg tablet (Lomotil) doxycycline hyclate 100 mg capsule 100 mg PO BID 01/07/24 01/07/24 History ergocalciferol (vitamin D2) 1,250 1,250 mcg PO WEEKLY 01/07/24 01/07/24 History mcg (50,000 unit) capsule ondansetron HCl 4 mg tablet 4 mg PO Q8HP PRN nausea and 01/07/24 01/07/24 History vomiting New Prescriptions to Start Prescriptions: Allergies Allergy/AdvReac Type Severity Reaction Status Date / Time No Known Allergies Allergy Verified 01/03/24 10:37 Exam (Inpt) Vital signs and Labs for Last 24 Hours: Temp Pulse Resp BP Pulse Ox O2 Del Method 98.2 F 75 16 168/81 H 94 L Room Air 01/07/24 04:00 01/07/24 04:00 01/07/24 04:00 01/07/24 04:00 01/07/24 04:00 01/07/24 06:49 Laboratory Results - last 24 hr 01/06/24 19:30: WBC 11.1 H, RBC 3.20 L, Hgb 9.8 L, Hct 30.8 L, MCV 96.3, MCH 30.5, MCHC 31.7 L, RDW 13.9, Plt Count 285, MPV 9.0, Neut % (Auto) 67.3, Lymph % (Auto) 24.7, [place] % (Auto) 6.2, Eos % (Auto) 1.2, Baso % (Auto) 0.7, Neut # (Auto) 7.5, Lymph # (Auto) 2.7, [place] # (Auto) 0.7, Eos # (Auto) 0.1, Baso # (Auto) 0.1, PT 11.0, INR 1.02, Sodium 139, Potassium 4.4, Chloride 112 H, Carbon Dioxide 17 L, Anion Gap 14.4, BUN 26 H, Creatinine 2.50 H, Estimated Creat Clear 21, Estimated GFR 19 L*, Est GFR ( Amer) 23 L, Glucose 153 H, Calcium 8.7, Magnesium 1.5 L, Total Bilirubin 0.9, AST 38 H, ALT 28, Alkaline Phosphatase 114, Troponin I 0.05 H, Total Protein 7.1, Albumin 3.9, Globulin 3.2, Albumin/Globulin Ratio 1.2, Lipase 89 01/06/24 19:43: Gastric Occult Blood Positive 01/06/24 19:55: Lactate 1.2, Blood Type A Positive, Antibody Screen Negative 01/06/24 21:43: POC Glucose 186 H 01/06/24 22:40: Troponin I 0.12 H 01/07/24 01:40: Troponin I 0.18 H 01/07/24 05:27: WBC 10.0, RBC 2.84 L, Hgb 8.6 L D, Hct 27.7 L, MCV 97.4, MCH 30.7, MCHC 31.5 L, RDW 13.9, Plt Count 246, MPV 8.9, Neut % (Auto) 72.8, Lymph % (Auto) 20.9, [place] % (Auto) 5.1, Eos % (Auto) 0.4, Baso % (Auto) 0.8, Neut # (Auto) 7.3, Lymph # (Auto) 2.1, [place] # (Auto) 0.5, Eos # (Auto) 0.0, Baso # (Auto) 0.1, Sodium 137, Potassium 4.8, Chloride 113 H, Carbon Dioxide 20 L, Anion Gap 8.8, BUN 25 H, Creatinine 2.40 H, Estimated Creat Clear 23, Estimated GFR 20 L, Est GFR ( Amer) 24 L, Glucose 121 H D, Calcium 8.4, Magnesium 2.0 D, Total Bilirubin 1.1, AST 30, ALT 24, Alkaline Phosphatase 105, Total Protein 5.8 L, Albumin 3.1 L D, Globulin 2.7, Albumin/Globulin Ratio 1.1 01/07/24 05:46: POC Glucose 136 H I & O for Labs for Last 24 Hours: Intake & Output 01/04/24 01/05/24 01/06/24 01/07/24 11:59 11:59 11:59 11:59 Intake Total 393 / 393 Output Total 0 / 0 Balance 393 / 393 Weight 145 lb 14.4 oz Constitutional: no acute distress Head: Present normocephalic GI: Present soft Comments:: Mild epigastric right upper quadrant discomfort. Results Labs 01/07/24 05:27 01/07/24 05:27 Labs: Laboratory Results - last 24 hr 01/06/24 19:30: WBC 11.1 H, RBC 3.20 L, Hgb 9.8 L, Hct 30.8 L, MCV 96.3, MCH 30.5, MCHC 31.7 L, RDW 13.9, Plt Count 285, MPV 9.0, Neut % (Auto) 67.3, Lymph % (Auto) 24.7, [place] % (Auto) 6.2, Eos % (Auto) 1.2, Baso % (Auto) 0.7, Neut # (Auto) 7.5, Lymph # (Auto) 2.7, [place] # (Auto) 0.7, Eos # (Auto) 0.1, Baso # (Auto) 0.1, PT 11.0, INR 1.02, Sodium 139, Potassium 4.4, Chloride 112 H, Carbon Dioxide 17 L, Anion Gap 14.4, BUN 26 H, Creatinine 2.50 H, Estimated Creat Clear 21, Estimated GFR 19 L*, Est GFR ( Amer) 23 L, Glucose 153 H, Calcium 8.7, Magnesium 1.5 L, Total Bilirubin 0.9, AST 38 H, ALT 28, Alkaline Phosphatase 114, Troponin I 0.05 H, Total Protein 7.1, Albumin 3.9, Globulin 3.2, Albumin/Globulin Ratio 1.2, Lipase 89 01/06/24 19:43: Gastric Occult Blood Positive 01/06/24 19:55: Lactate 1.2, Blood Type A Positive, Antibody Screen Negative 01/06/24 21:43: POC Glucose 186 H 01/06/24 22:40: Troponin I 0.12 H 01/07/24 01:40: Troponin I 0.18 H 01/07/24 05:27: WBC 10.0, RBC 2.84 L, Hgb 8.6 L D, Hct 27.7 L, MCV 97.4, MCH 30.7, MCHC 31.5 L, RDW 13.9, Plt Count 246, MPV 8.9, Neut % (Auto) 72.8, Lymph % (Auto) 20.9, [place] % (Auto) 5.1, Eos % (Auto) 0.4, Baso % (Auto) 0.8, Neut # (Auto) 7.3, Lymph # (Auto) 2.1, [place] # (Auto) 0.5, Eos # (Auto) 0.0, Baso # (Auto) 0.1, Sodium 137, Potassium 4.8, Chloride 113 H, Carbon Dioxide 20 L, Anion Gap 8.8, BUN 25 H, Creatinine 2.40 H, Estimated Creat Clear 23, Estimated GFR 20 L, Est GFR ( Amer) 24 L, Glucose 121 H D, Calcium 8.4, Magnesium 2.0 D, Total Bilirubin 1.1, AST 30, ALT 24, Alkaline Phosphatase 105, Total Protein 5.8 L, Albumin 3.1 L D, Globulin 2.7, Albumin/Globulin Ratio 1.1 01/07/24 05:46: POC Glucose 136 H Assessment and Plan *Assessment and plan (1) Hematemesis: Status: Acute Qualifiers: Nausea presence: with nausea Qualified Code(s): K92.0 - Hematemesis Category: Medical Code(s): K92.0 - Hematemesis Plan Plan for EGD.
--- NOTE | 2024-01-07 07:34 | CT_ITS ---
FINAL REPORT TECHNIQUE: Thin section axial images were obtained through the left foot without contrast. Reconstruction images were obtained from the axial data. Exam was performed using dose reduction technique. CLINICAL HISTORY: diabetic ulcer on left big toe COMPARISON: None FINDINGS: There is no acute fracture or dislocation. No acute osseous abnormality is identified. Mild degenerative change is present. There are chronic calcifications adjacent to the medial and lateral malleoli. Calcaneal spurs are present. There is erosion of the tuft of the right first toe distal phalanx, that appears subacute or chronic. No definite acute erosion is noted. There is soft tissue edema/cellulitis involving the entire foot and ankle. No convincing evidence of osteomyelitis is seen, and would recommend follow-up CT or MR if symptoms persist. IMPRESSION: No acute osseous abnormality of the left foot. There is erosion of the tuft of the right first toe distal phalanx that appears subacute or chronic. No convincing evidence of osteomyelitis is seen. Follow-up CT or MRI is suggested if symptoms persist. Soft tissue edema/cellulitis involves the entire left foot and ankle. Reviewed, Interpreted and Dictated by Gibran Noel III, MD Transcribed by Coby Mcdaniel Authenticated and [facility]
[2024-01-07 07:41] LABS: C-Reactive Protein 3.6 mg/L (0-4)
--- NOTE | 2024-01-07 07:44 | HMH.PHAINT1 ---
Pharmacy Intervention Comments: MEDICATION RECONCILIATION COMPLETED ON PATIENT USING EXTERNAL FILL HISTORY FROM PHARMACY. -ROSY JAMA, MEÑOD
[2024-01-07 08:01] LABS: Erythrocyte Sedimentation Rate 37 mm/hr (0-30)
[2024-01-07] MEDS: DOXYCYCLINE HYCLATE 100 MG in 0.9 % SODIUM CHLORIDE 250 ML 166.667000000000002 MG IV ×2 (09:10→21:38)
[2024-01-07] MEDS: METOPROLOL SUCCINATE XL 100MG TABLET 100 MG PO (09:11)
[2024-01-07] MEDS: LEVOTHYROXINE 50MCG (0.05MG) TAB 50 MCG PO (09:11)
[2024-01-07] MEDS: HYDRALAZINE HCL 25MG TABLET 25 MG PO ×2 (09:12→20:17)
[2024-01-07 10:42] LABS: POC Glucose,Bedside 96 (70-110)
--- NOTE | 2024-01-07 11:45 | PC.NURSE ---
PT DOWN FOR PROCEDURE
--- NOTE | 2024-01-07 13:32 | EXP.ANES.CKL ---
[facility] Disclaimer: The information contained in this section may have been updated after the patient was seen, as this information can be updated by other users. Medical History CKD stage 3 due to type 2 diabetes mellitus PVD (peripheral vascular disease) Edema of left lower extremity Wound of left foot Elevated bilirubin Typical angina Hypothyroidism Hyperkalemia Type 2 diabetes mellitus with diabetic polyneuropathy, without long-term current use of insulin Diarrhea Dyspnea Type 2 diabetes mellitus Decreased pulses in feet Neuropathy Anxiety HLD (hyperlipidemia) Family History Other No significant family history Social History (Updated 01/06/24 @ 21:39 by Uzma Swenson RN) Smoking Status: Unknown if ever smoked alcohol intake: never substance use type: denies use current occupational status: unemployed Travel in the last 8 weeks: None household members: significant other housing: house current occupational exposures/hazards: No caffeine: No [facility] Anesthesia Checklist Patient Identification Patient Identification: Arm Band Structural Data Admitted From: Home Planned Operative Procedure/s: EGD Consent for Planned Operative Procedure(s) Verified: Yes Verified Documents: Surgical Consent and History and Physical NPO Status Verified Time NPO: 00:00 Additional verifications Anesthesia Reactions: No Airway Assessment Mallampati Score:: Class II C-Spine Mobility Assessed: Yes TMJ Mobility Assessed: Yes Dentition: Edentulous Neurological Assessment Level of Consciousness: Awake, Alert and Appropriate Anesthesia Plan Anesthesia Risk discussed: Yes Anesthesia Plan: Verified ASA Class: III Anesthesia Type: MAC Preoperative Comments Pre-Operative Comments: Discussed case with Yvette from cardiology preoperatively d/t elevated troponin levels. Pt is in no acute distress, no c/o chest pain or shortness of breath. Recent Echo which is stable. No major EKG changes from previous EKG. Plan is to proceed with EGD at this time.
--- NOTE | 2024-01-07 14:02 | HMH.SCOPE ---
Procedure: Date: 01/07/24 Patient Date of :: 1955 Procedure Performed:: Esophagogastroduodenoscopy with biopsies Indications:: Patient is a 68-year-old female who had presented to the emergency department in the evening of 01/06/2024 with acute onset of unprovoked vomiting. She states that it did not appear bloody. She has a history of stage III chronic kidney disease, arterial occlusive disease, hypothyroidism, type 2 diabetes, neuropathy, hyperlipidemia, coronary artery disease with non-STEMI and previous stenting. Upon arrival to the emergency department there was reportedly some hematemesis. She was admitted for inpatient management and surgical consultation was obtained for her reported hematemesis. She has apparent chronic anemia. She has a baseline hemoglobin of approximately 9. It was 9.8 upon presentation is 8.6 today. She is on iron supplementation. She has a BUN of 25 and creatinine of 2.4 which is essentially her recent baseline. She was admitted for inpatient management and surgical consultation for EGD. Patient has never had endoscopy or colonoscopy. . Performing Provider:: Gibran Apodaca MD . Referring Provider:: Alem Arceo . Sedation:: MAC sedation . Procedure:: Patient history was obtained and appropriate physical examination was performed. Patient's medications and allergies were reviewed. Informed consent was obtained after explaining the benefits, alternatives, and risks of the procedure including, but not limited to, bleeding, perforation, missed lesions, and adverse reaction to anesthesia medications. Patient was transported to endoscopy procedure room. Patient was connected to monitoring devices. Throughout the procedure the patient's blood pressure, pulse, and oxygen saturations were monitored continuously. Patient identification and planned procedure were verified by the staff. Patient was positioned in lateral decubitus position. Olympus endoscope was inserted via the oropharynx. Esophagus was intubated and cannulated. There was some minor tortuosity of the esophagus consistent with possible mild esophageal dysmotility. Gastroesophageal junction was encountered at approximately 40 cm. Stomach was cannulated and insufflated. There was some bilious liquid within the gastric lumen. No evidence of any bleeding or stigmata of recent upper GI bleed. Retroflexion revealed no evidence of any appreciable hiatal hernia. There was some moderate nonerosive linear gastropathy. Pylorus was traversed. Duodenum to the third portion of the duodenum appeared normal with no evidence of any GI bleeding. Endoscope was withdrawn into the gastric lumen and gastric antral mucosal biopsy was obtained for H. pylori assessment. Endoscope was withdrawn. . Findings:: Minor esophageal dysmotility Gastroesophageal junction at 40 cm Moderate nonerosive linear gastropathy Bilious liquid within the stomach, possible bile reflux gastritis Duodenum normal No active signs of upper GI bleed or stigmata of recent bleeding. . Recommendations:: Continue medical management Complications:: None immediately apparent Estimated blood obtained (mL): 2 Colonoscopy Component Colonoscopy Component Was a colonoscopy performed during today's procedure?: No
--- NOTE | 2024-01-07 16:31 | EXP.PN ---
Subjective *Date: 01/07/24 *Time: 16:31 Interval history: patient is seen at bedside, denied abdominal pain, nausea, vomiting Exam Data for Last 24 hours Vital signs and Labs for Last 24 Hours: Temp Pulse Resp BP Pulse Ox O2 Del Method O2 Flow Rate 98.7 F 82 18 136/75 95 Room Air 4 01/07/24 16:10 01/07/24 16:10 01/07/24 16:10 01/07/24 16:10 01/07/24 16:10 01/07/24 16:10 01/07/24 13:50 Laboratory Results - last 24 hr 01/06/24 19:30: WBC 11.1 H, RBC 3.20 L, Hgb 9.8 L, Hct 30.8 L, MCV 96.3, MCH 30.5, MCHC 31.7 L, RDW 13.9, Plt Count 285, MPV 9.0, Neut % (Auto) 67.3, Lymph % (Auto) 24.7, [place] % (Auto) 6.2, Eos % (Auto) 1.2, Baso % (Auto) 0.7, Neut # (Auto) 7.5, Lymph # (Auto) 2.7, [place] # (Auto) 0.7, Eos # (Auto) 0.1, Baso # (Auto) 0.1, PT 11.0, INR 1.02, Sodium 139, Potassium 4.4, Chloride 112 H, Carbon Dioxide 17 L, Anion Gap 14.4, BUN 26 H, Creatinine 2.50 H, Estimated Creat Clear 21, Estimated GFR 19 L*, Est GFR ( Amer) 23 L, Glucose 153 H, Calcium 8.7, Magnesium 1.5 L, Total Bilirubin 0.9, AST 38 H, ALT 28, Alkaline Phosphatase 114, Troponin I 0.05 H, Total Protein 7.1, Albumin 3.9, Globulin 3.2, Albumin/Globulin Ratio 1.2, Lipase 89 01/06/24 19:43: Gastric Occult Blood Positive 01/06/24 19:55: Lactate 1.2, Blood Type A Positive, Antibody Screen Negative 01/06/24 21:43: POC Glucose 186 H 01/06/24 22:40: Troponin I 0.12 H 01/07/24 01:40: Troponin I 0.18 H 01/07/24 05:27: WBC 10.0, RBC 2.84 L, Hgb 8.6 L D, Hct 27.7 L, MCV 97.4, MCH 30.7, MCHC 31.5 L, RDW 13.9, Plt Count 246, MPV 8.9, Neut % (Auto) 72.8, Lymph % (Auto) 20.9, [place] % (Auto) 5.1, Eos % (Auto) 0.4, Baso % (Auto) 0.8, Neut # (Auto) 7.3, Lymph # (Auto) 2.1, [place] # (Auto) 0.5, Eos # (Auto) 0.0, Baso # (Auto) 0.1, ESR 37 H, Sodium 137, Potassium 4.8, Chloride 113 H, Carbon Dioxide 20 L, Anion Gap 8.8, BUN 25 H, Creatinine 2.40 H, Estimated Creat Clear 23, Estimated GFR 20 L, Est GFR ( Amer) 24 L, Glucose 121 H D, Calcium 8.4, Magnesium 2.0 D, Total Bilirubin 1.1, AST 30, ALT 24, Alkaline Phosphatase 105, C-Reactive Protein 3.6, Total Protein 5.8 L, Albumin 3.1 L D, Globulin 2.7, Albumin/Globulin Ratio 1.1 01/07/24 05:46: POC Glucose 136 H 01/07/24 10:35: POC Glucose 96 I & O for Last 24 hours: Intake & Output 01/04/24 01/05/24 01/06/24 01/07/24 23:59 23:59 23:59 23:59 Intake Total 393 / 393 Output Total 0 / 0 0 / 0 Balance 0 / 0 393 / 393 Weight 60.781 kg 66.179 kg Constitutional Constitutional: no acute distress *Routine HEENT Exam Head: Present normocephalic Eye: Present EOMI and PERRL ENT: Present mucous membranes moist *Routine Neck Exam Neck: Present supple; Absent lymphadenopathy *Routine Respiratory Exam Respiratory: Present CTA bilaterally *Routine Cardiovascular Exam Cardiovascular: Present RRR *Routine Abdominal Exam Abdominal: Present soft and normoactive bowel sounds; Absent tenderness *Routine Extremities Exam Extremities: Absent cyanosis, clubbing or edema *Routine Skin Exam Skin: Present warm; Absent rash *Routine Neurological Exam Neurological: Present alert and oriented X3 Assessment and Plan *Assessment and plan (1) Hematemesis: Status: Acute Qualifiers: Nausea presence: with nausea Qualified Code(s): K92.0 - Hematemesis Category: Medical Code(s): K92.0 - Hematemesis (2) Nausea & vomiting: Status: Acute Qualifiers: Vomiting type: unspecified Qualified Code(s): R11.2 - Nausea with vomiting, unspecified Category: Medical Code(s): R11.2 - Nausea with vomiting, unspecified (3) Cellulitis of great toe of left foot: Status: Acute Category: Medical Code(s): L03.032 - Cellulitis of left toe (4) CKD stage 3 due to type 2 diabetes mellitus: Status: Chronic Category: Medical Code(s): E11.22 - Type 2 diabetes mellitus with diabetic chronic kidney disease; N18.3 - Chronic kidney disease, stage 3 (moderate) (5) Hypothyroidism: Status: Chronic Qualifiers: Hypothyroidism type: unspecified Qualified Code(s): E03.9 - Hypothyroidism, unspecified Category: Medical Code(s): E03.9 - Hypothyroidism, unspecified (6) Hypertension: Status: Chronic Qualifiers: Hypertension type: essential hypertension Qualified Code(s): I10 - Essential (primary) hypertension Category: Medical Code(s): I10 - Essential (primary) hypertension (7) History of coronary artery stent placement: Status: Chronic Category: Surgical Code(s): Z95.5 - Presence of coronary angioplasty implant and graft (8) Coronary artery disease: Status: Chronic Qualifiers: Coronary Disease-Associated Artery/Lesion type: [place] artery [place] vs. transplanted heart: [place] heart Associated angina: without angina Qualified Code(s): I25.10 - Atherosclerotic heart disease of [place] coronary artery without angina pectoris Category: Medical Code(s): I25.10 - Atherosclerotic heart disease of [place] coronary artery without angina pectoris (9) HLD (hyperlipidemia): Status: Chronic Qualifiers: Hyperlipidemia type: mixed hyperlipidemia Qualified Code(s): E78.2 - Mixed hyperlipidemia Category: Medical Code(s): E78.5 - Hyperlipidemia, unspecified Plan 68-year-old female with PMHx of NIDDM with neuropathy, CKD hypertension, hyperlipidemia, CAD, with recently diagnosed cellulitis of the left toe, is started on doxycycline p.o. twice daily. Patient presents for evaluation of nausea vomiting and hematemesis. patient was prescribed cefdinir a week ago for suspected UTI, more recently on doxycycline PO for left toe cellulitis. On arriaval patient hemodynamically stable. Initial workup included stool blood occult positive, H&H are stable at 9.8 and 30.8 respectively GFR is 19 creatinine to 2.5 magnesium of 1.5 initial troponin is 0.05. CT of the abdomen was deferred due to renal function. Patient was placed on Protonix continuous infusion. Discussed findings with GI ED they request bed for admission. Medicine I agree for it. Plan as follows: -Hematemesis, nausea and vomiting. Likely secondary to gastritis continue on protonix 40 IV BID monitor Hb, Hb downtrending Surgical consult - plan for EGD - no active bleed present on EGD advance diet as tolerated Zofran IV for nausea and vomiting Repeat labs in the morning -Cellulitis of the right great toe On IV doxycycline Podiatric consult - no surgical managment needs, f/u as outpatient continue doxycline -Other chronic conditions: CKD stage III and diabetes [id number]: ISS monitor BMP Hypertension hypothyroidism CAD status post stent: Hold aspirin in the setting of GI bleed Resume hypertensive medications SCD for DVT prophylaxis Full code likely DC tomorrow if Hb stable
[2024-01-07 16:40] LABS: POC Glucose,Bedside 88 (70-110)
[2024-01-07] MEDS: ATORVASTATIN 40MG TABLET 40 MG PO (20:12)
[2024-01-07] MEDS: PANTOPRAZOLE 40MG TABLET 40 MG PO (20:12)
[2024-01-07] MEDS: humaLOG 100 UNITS/ML 10ML VIAL (SSI) SQ (20:12)
[2024-01-07 20:21] LABS: POC Glucose,Bedside 183 (70-110)
[2024-01-08] VITALS: BP 148/76; PULSE 68; RESP 16; TEMP 37.1; O2SAT 97
[2024-01-08 04:00] VITALS: BP 154/83; PULSE 71; RESP 16; TEMP 37.1; O2SAT 96; BMI 25.4
[2024-01-08] MEDS: LEVOTHYROXINE 50MCG (0.05MG) TAB 50 MCG PO (06:00)
[2024-01-08 06:07] LABS: POC Glucose,Bedside 117 (70-110)
[2024-01-08 06:07] LABS: Basophils # 0.1 K/mm3 (0-0.2); Basophils % 0.6 % (0.1-2.0); Eosinophils # 0.2 K/mm3 (0.0-0.4); Eosinophils % 2.1 % (0.1-12.0); Hematocrit 26.4 % (37.0-47.0); Hemoglobin 8.3 g/dL (12.2-16.2); Lymphocytes # 2.3 K/mm3 (0.7-4.5); Lymphocytes % 30.2 % (10-50); Mean Corpuscular HGB Conc 31.4 g/dL (31.8-35.4); Mean Corpuscular Hemoglobin 30.6 pg (27.0-31.2); Mean Corpuscular Volume 97.3 fl (81-99); Mean Platelet Volume 8.8 fl (7.4-10.4); Monocytes # 0.5 K/mm3 (0.1-1.0); Monocytes % 6.4 % (1.7-9.3); Neutrophils # 4.7 K/mm3 (1.8-7.8); Neutrophils % 60.7 % (37.0-80.0); Platelet Count 238 K/mm3 (142-424); Red Blood Count 2.71 M/mm3 (4.20-5.40); White Blood Count 7.7 K/mm3 (4.8-10.8)
[2024-01-08 06:12] LABS: Chloride 113 mmol/L (98-107); Potassium 4.6 mmoL/L (3.5-5.1); Sodium 136 mmol/L (136-145)
[2024-01-08 06:15] LABS: Anion Gap 6.6 mEq/L (5-15); Blood Urea Nitrogen 21 mg/dl (7-17); Carbon Dioxide 21 mmol/L (22.0-30.0); Creatinine Clearance Estimated 24 mL/min (50-200); Estimated Glomerular Filt Rate 20 ml/min (>60); GFR (African American) 24 ML/MIN (>60)
[2024-01-08 06:16] LABS: Calcium 8.4 mg/dl (8.4-10.2); Glucose 110 mg/dl (74-100)
--- NOTE | 2024-01-08 06:48 | P.CONS_ITS ---
History of Present Illness *Admission Date: 01/06/24 *History of present illness: Patient is a 68-year-old female who had presented to the emergency department in the evening of 01/06/2024 with acute onset of unprovoked vomiting. She states that it did not appear bloody. She has a history of stage III chronic kidney disease, arterial occlusive disease, hypothyroidism, type 2 diabetes, neuropathy, hyperlipidemia, coronary artery disease with non-STEMI and previous stenting. Upon arrival to the emergency department there was reportedly some hematemesis. She was admitted for inpatient management and surgical consultation was obtained for her reported hematemesis. She has apparent chronic anemia. She has a baseline hemoglobin of approximately 9. It was 9.8 upon presentation is 8.6 today. She is on iron supplementation. She has a BUN of 25 and creatinine of 2.4 which is essentially her recent baseline. She was admitted for inpatient management and surgical consultation for EGD. Patient has never had endoscopy or colonoscopy. 01/08/24: Patient sitting up on side of bed this morning eating her breakfast. Denies any nausea or vomiting over the night. She denies any pain to her Left Hallux DFU. [facility] Disclaimer: The information contained in this section may have been updated after the patient was seen, as this information can be updated by other users. Medical History CKD stage 3 due to type 2 diabetes mellitus PVD (peripheral vascular disease) Edema of left lower extremity Wound of left foot Elevated bilirubin Typical angina Hypothyroidism Hyperkalemia Type 2 diabetes mellitus with diabetic polyneuropathy, without long-term current use of insulin Diarrhea Dyspnea Type 2 diabetes mellitus Decreased pulses in feet Neuropathy Anxiety HLD (hyperlipidemia) Family History Other No significant family history Social History (Updated 01/06/24 @ 21:39 by Uzma Swenson RN) Smoking Status: Unknown if ever smoked alcohol intake: never substance use type: denies use current occupational status: unemployed Travel in the last 8 weeks: None household members: significant other housing: house current occupational exposures/hazards: No caffeine: No Meds Home Medications and Allergies Home Medications Medication Instructions Recorded Confirmed Type ferrous sulfate 325 mg (65 mg 325 mg PO DAILY 06/06/23 01/07/24 History iron) tablet aspirin 81 mg tablet,delayed 81 mg PO DAILY Blood thinner #90 08/02/23 01/07/24 Rx release tabs atorvastatin 40 mg tablet 40 mg PO HS High cholesterol #90 08/02/23 01/07/24 Rx tabs cholecalciferol (vitamin D3) 25 25 mcg PO DAILY #90 tabs 08/02/23 01/07/24 Rx mcg (1,000 unit) tablet diaper,brief,adult,disposable #80 ea 08/02/23 01/07/24 Rx (Veronique Ultra Briefs-Medium) glipizide 10 mg tablet, extended 10 mg PO DAILY Diabetes #90 tabs 08/02/23 01/07/24 Rx release 24 hr metoprolol succinate 100 mg 100 mg PO DAILY blood pressure #90 08/02/23 01/07/24 Rx tablet,extended release 24 hr tabs nitroglycerin 0.3 mg sublingual 0.3 mg sublingual Q5M PRN chest 08/02/23 01/07/24 Rx tablet pain #25 tabs levothyroxine 50 mcg tablet 50 mcg PO DAILY #90 tabs 08/03/23 01/07/24 Rx (Synthroid) hydralazine 25 mg tablet 25 mg PO TID blood pressure #90 12/19/23 01/07/24 Rx tabs famotidine 40 mg tablet (Pepcid) 40 mg PO DAILY #30 tabs 01/03/24 01/07/24 Rx lancets 28 gauge (FreeStyle #100 ea 01/03/24 01/07/24 Rx Lancets) blood sugar diagnostic (FreeStyle #100 ea 01/04/24 01/07/24 Rx Lite Strips) diphenoxylate-atropine 2.5 1 tab PO Q8HP PRN diarrhea 01/07/24 01/07/24 History mg-0.025 mg tablet (Lomotil) doxycycline hyclate 100 mg capsule 100 mg PO BID 01/07/24 01/07/24 History ergocalciferol (vitamin D2) 1,250 1,250 mcg PO WEEKLY 01/07/24 01/07/24 History mcg (50,000 unit) capsule ondansetron HCl 4 mg tablet 4 mg PO Q8HP PRN nausea and 01/07/24 01/07/24 History vomiting New Prescriptions to Start Prescriptions: Allergies Allergy/AdvReac Type Severity Reaction Status Date / Time No Known Allergies Allergy Verified 01/03/24 10:37 Exam (Inpt) Vital signs and Labs for Last 24 Hours: Temp Pulse Resp BP Pulse Ox O2 Del Method O2 Flow Rate 98.8 F 71 16 154/83 H 96 Room Air 4 01/08/24 04:00 01/08/24 04:00 01/08/24 04:00 01/08/24 04:00 01/08/24 04:00 01/08/24 05:00 01/07/24 13:50 Laboratory Results - last 24 hr 01/07/24 05:27: ESR 37 H, C-Reactive Protein 3.6 01/07/24 10:35: POC Glucose 96 01/07/24 16:30: POC Glucose 88 01/07/24 20:09: POC Glucose 183 H 01/08/24 05:30: WBC 7.7, RBC 2.71 L, Hgb 8.3 L, Hct 26.4 L, MCV 97.3, MCH 30.6, MCHC 31.4 L, RDW 14.0, Plt Count 238, MPV 8.8, Neut % (Auto) 60.7, Lymph % (Auto) 30.2, Mclennan % (Auto) 6.4, Eos % (Auto) 2.1, Baso % (Auto) 0.6, Neut # (Auto) 4.7, Lymph # (Auto) 2.3, Mclennan # (Auto) 0.5, Eos # (Auto) 0.2, Baso # (Auto) 0.1, Sodium 136, Potassium 4.6, Chloride 113 H, Carbon Dioxide 21 L, Anion Gap 6.6, BUN 21 H, Creatinine 2.40 H, Estimated Creat Clear 24, Estimated GFR 20 L, Est GFR ( Amer) 24 L, Glucose 110 H, Calcium 8.4 01/08/24 05:58: POC Glucose 117 H I & O for Labs for Last 24 Hours: Intake & Output 01/05/24 01/06/24 01/07/24 01/08/24 23:59 23:59 23:59 23:59 Intake Total 873 / 873 490 / 490 Output Total 0 / 0 300 / 300 0 / 0 Balance 0 / 0 573 / 573 490 / 490 Weight 134 lb 145 lb 14.4 oz 148 lb 11.2 oz Constitutional: Present no acute distress and cooperative Head: Present normocephalic Eye: Present as per HPI Neck: Present full ROM and trachea midline Respiratory: Present normal respiratory effort and able to speak in complete sentences Cardiac: Present Regular Rate, posterior tibial pulses present and pedal pulses present Comment:: 1+ Pedal edema b/l. Comments:: deferred Rectal (female): Present deferred (female): Present deferred Extremities: Present full ROM, normal capillary refill and edema; Absent calf tenderness Comment:: 01/08/24: left hallux DFU 1.0 x 1.0 x 0.1cm , no drainage, Looks much better this morning, less erythema and edema to foot and hallux. Cleaned with Chlora Prep swab, Ulcer was sharply debrided with curette, 100% granular wound bed, good bleeding noted. Skin: Present erythema (Left hallux, DFU redness improving.) and warm Neuro: Present Motor Function Intact, Sensory Function Intact (Neuropathy, decreased sensation noted.), oriented x 3, tone normal and moves all extremities Ankle: bilateral: normal inspection and bilateral: decreased ROM Feet/Toes: left: erythema (left hallux DFU/cellulitis, improving ), left: swelling and left: tenderness (no tenderness noted today) and bilateral: nail abnormalities Inspection: Present nail disorder and infection (Left Hallux DFU/cellulitis improving ) Pulses: L dorsalis pedis pulse: normal, R dorsalis pedis pulse: normal, L posterior tibial pulse: normal and R posterior tibial pulse: normal CFT: normal: CFT Monofilament exam: L 1st metatarsals: decreased, L 3rd metatarsals: decreased, L 5th metatarsals: decreased, L great toe: decreased, L 3rd toe: decreased, L 5th toe: decreased, R 1st metatarsals: decreased, R 3rd metatarsals: decreased, R 5th metatarsals: decreased, R great toe: decreased, R 3rd toe: decreased and R 5th toe: decreased Pinprick: L great toe: abnormal and R great toe: abnormal Ankle reflex: Left: abnormal and Right: abnormal Results Labs 01/08/24 05:30 01/08/24 05:30 Labs: Abnormal lab results 01/07/24 01/07/24 01/08/24 Range/Units 05:27 20:09 05:30 RBC 2.71 L (4.20-5.40) M/mm3 Hgb 8.3 L (12.2-16.2) g/dL Hct 26.4 L (37.0-47.0) % MCHC 31.4 L (31.8-35.4) g/dL ESR 37 H (0-30) mm/hr Chloride 113 H (98-107) mmol/L Carbon Dioxide 21 L (22.0-30.0) mmol/L BUN 21 H (7-17) mg/dl Creatinine 2.40 H (0.52-1.04) mg/dl Estimated GFR 20 L (>60) ml/min Est GFR ( Amer) 24 L (>60) ML/MIN Glucose 110 H (74-100) mg/dl POC Glucose 183 H (70-110) 01/08/24 Range/Units 05:58 RBC (4.20-5.40) M/mm3 Hgb (12.2-16.2) g/dL Hct (37.0-47.0) % MCHC (31.8-35.4) g/dL ESR (0-30) mm/hr Chloride (98-107) mmol/L Carbon Dioxide (22.0-30.0) mmol/L BUN (7-17) mg/dl Creatinine (0.52-1.04) mg/dl Estimated GFR (>60) ml/min Est GFR ( Amer) (>60) ML/MIN Glucose (74-100) mg/dl POC Glucose 117 H (70-110) H & H 01/06/24 01/07/24 01/08/24 Range/Units 19:30 05:27 05:30 Hgb 9.8 L 8.6 L D 8.3 L (12.2-16.2) g/dL Hct 30.8 L 27.7 L 26.4 L (37.0-47.0) % Coagulation 01/06/24 Range/Units 19:30 INR 1.02 (0.9-1.1) All other labs normal. Assessment and Plan *Assessment and plan (1) Diabetic ulcer of toe of left foot associated with type 2 diabetes mellitus: Status: Acute Qualifiers: Non-pressure ulcer stage: with fat layer exposed Qualified Code(s): E 11.621 - Type 2 diabetes mellitus with foot ulcer; L97.522 - Non-pressure chronic ulcer of other part of left foot with fat layer exposed Category: Medical Code(s): E11.621 - Type 2 diabetes mellitus with foot ulcer; L97.529 - Non-pressure chronic ulcer of other part of left foot with unspecified severity (2) Diabetic ulcer of toe of left foot: Status: Acute Qualifiers: Diabetes mellitus type: type 2 Non-pressure ulcer stage: with fat layer exposed Qualified Code(s): E11.621 - Type 2 diabetes mellitus with foot ulcer; L97.522 - Non-pressure chronic ulcer of other part of left foot with fat layer exposed Category: Medical Code(s): E11.621 - Type 2 diabetes mellitus with foot ulcer; L97.529 - Non-pressure chronic ulcer of other part of left foot with unspecified severity (3) Hematemesis: Status: Acute Qualifiers: Nausea presence: with nausea Qualified Code(s): K92.0 - Hematemesis Category: Medical Code(s): K92.0 - Hematemesis (4) Nausea & vomiting: Status: Acute Qualifiers: Vomiting type: unspecified Qualified Code(s): R11.2 - Nausea with vomiting, unspecified Category: Medical Code(s): R11.2 - Nausea with vomiting, unspecified (5) Cellulitis of great toe of left foot: Status: Acute Category: Medical Code(s): L03.032 - Cellulitis of left toe (6) CKD stage 3 due to type 2 diabetes mellitus: Status: Chronic Category: Medical Code(s): E11.22 - Type 2 diabetes mellitus with diabetic chronic kidney disease; N18.3 - Chronic kidney disease, stage 3 (moderate) (7) Hypothyroidism: Status: Chronic Qualifiers: Hypothyroidism type: unspecified Qualified Code(s): E03.9 - Hypothyroidism, unspecified Category: Medical Code(s): E03.9 - Hypothyroidism, unspecified (8) Hypertension: Status: Chronic Qualifiers: Hypertension type: essential hypertension Qualified Code(s): I10 - Essential (primary) hypertension Category: Medical Code(s): I10 - Essential (primary) hypertension (9) History of coronary artery stent placement: Status: Chronic Category: Surgical Code(s): Z95.5 - Presence of coronary angioplasty implant and graft (10) Coronary artery disease: Status: Chronic Qualifiers: Associated angina: without angina Coronary Disease-Associated Artery/Lesion type: [place] artery [place] vs. transplanted heart: [place] heart Qualified Code(s): I25.10 - Atherosclerotic heart disease of [place] coronary artery without angina pectoris Category: Medical Code(s): I25.10 - Atherosclerotic heart disease of [place] coronary artery without angina pectoris (11) HLD (hyperlipidemia): Status: Chronic Qualifiers: Hyperlipidemia type: mixed hyperlipidemia Qualified Code(s): E78.2 - Mixed hyperlipidemia Category: Medical Code(s): E78.5 - Hyperlipidemia, unspecified (12) Edema of left lower extremity: Status: Acute Category: Medical Code(s): R60.0 - Localized edema (13) Type 2 diabetes mellitus with diabetic polyneuropathy, without long-term current use of insulin: Status: Chronic Category: Medical Code(s): E11.42 - Type 2 diabetes mellitus with diabetic polyneuropathy Plan 68-year-old female with PMHx of NIDDM with neuropathy, CKD hypertension, hyperlipidemia, CAD, with recently diagnosed cellulitis of the left toe, is started on doxycycline p.o. twice daily. Patient presents for evaluation of nausea vomiting and hematemesis. patient was prescribed cefdinir a week ago for suspected UTI, more recently on doxycycline PO for left toe cellulitis. On arriaval patient hemodynamically stable. Initial workup included stool blood occult positive, H&H are stable at 9.8 and 30.8 respectively GFR is 19 creatinine to 2.5 magnesium of 1.5 initial troponin is 0.05. CT of the abdomen was deferred due to renal function. Patient was placed on Protonix continuous infusion. Discussed findings with GI ED they request bed for admission. Medicine I agree for it. Plan as follows: 01/08/24: Podiatry Consult -Day #2 inpatient -Patient admitted for Hematemesis, nausea and vomiting. Likely secondary to gastritis by medicaments To rule out active gastric/peptic ulcer -Patient had Surgical consult- no active bleed present on EGD -continue on protonix 40 IV BID -Patient was started on Protonix infusion and Zofran IV for nausea and vomiting -Patient now advanced on her diet and eating Diabetic diet this morning, denies any N/V/D. ALESSANDRO's Date of Service: 01/02/24, Procedure(s): US Arterial Lower Ext Rest, FINDINGS: ANKLE-BRACHIAL PRESSURE INDICES Pressure indices are as follows: RIGHT LOWER EXTREMITY: Ankle-brachial pressure index: 1.02 Comments: Normal LEFT LOWER EXTREMITY: Ankle-brachial pressure index: 1.08 Comments: Normal IMPRESSION: No evidence of significant obstructive peripheral vascular disease of the lower extremities CT left foot reviewed- FINDINGS: There is no acute fracture or dislocation. No acute osseous abnormality is identified. Mild degenerative change is present. There are chronic calcifications adjacent to the medial and lateral malleoli. Calcaneal spurs are present. There is erosion of the tuft of the right first toe distal phalanx, that appears subacute or chronic. No definite acute erosion is noted. There is soft tissue edema/cellulitis involving the entire foot and ankle. No convincing evidence of osteomyelitis is seen, and would recommend follow-up CT or MR if symptoms persist. IMPRESSION: No acute osseous abnormality of the left foot. There is erosion of the tuft of the right first toe distal phalanx that appears subacute or chronic. No convincing evidence of osteomyelitis is seen. Follow-up CT or MRI is suggested if symptoms persist. Soft tissue edema/cellulitis involves the entire left foot and ankle. Labs reviewed: 01/08/24: wbc 7.7, cr. 2.4, gfr 20, glucose 110 01/07/24: wbc 10, esr 37, crp , cr 3.2, gfr 20, glucose 121 12/27/23: wbc 11.8, esr 99, crp 11.8, cr 2.5, gfr 17, glucose 150 Left hallux cellulitis/diabetic foot ulcer -The inflammatory/infection markers have trending down since 12/27/23. Compared to clinic exam, and improving more this morning. -CT, not concerned with abscess or acute osteomyelitis. -No plans for Podiatry surgery at this time. -Patient is now on IV doxycycline 100 mg twice daily -Cellulitis improving with 1+ edema, good DP/PT pedal pulses noted -Left hallux was cleaned with Chlora Prep swabs, using curette to sharply debride ulcer bed, no drainage noted,100% granular wound bed noted. Site was cleaned again with Betadine and dressed with Ioplex and large band aid. -Patient is good from Podiatry standpoint to be discharged at Hospitalist discretion. -She will need a one week outpatient f/u appointment in out office.
[2024-01-08 07:35] VITALS: BP 141/80; BP 158/69; PULSE 110; PULSE 72; RESP 18; TEMP 37.1; O2SAT 94; O2SAT 95
--- NOTE | 2024-01-08 07:36 | PC.NURSE ---
All care and documentation provided by Victoria MYERS was completed under my direct supervision. Billie Yancey RN
--- NOTE | 2024-01-08 07:50 | P.DS_ITS ---
General Admission date:: 01/06/24 Discharge date: 01/08/24 HPI HPI HPI: Patient is a 68-year-old female who had presented to the emergency department in the evening of 01/06/2024 with acute onset of unprovoked vomiting. She states that it did not appear bloody. She has a history of stage III chronic kidney disease, arterial occlusive disease, hypothyroidism, type 2 diabetes, neuropathy, hyperlipidemia, coronary artery disease with non-STEMI and previous stenting. Upon arrival to the emergency department there was reportedly some hematemesis. She was admitted for inpatient management and surgical consulta tion was obtained for her reported hematemesis. She has apparent chronic anemia. She has a baseline hemoglobin of approximately 9. It was 9.8 upon presentation is 8.6 today. She is on iron supplementation. She has a BUN of 25 and creatinine of 2.4 which is essentially her recent baseline. She was admitted for inpatient management and surgical consultation for EGD. Patient has never had endoscopy or colonoscopy. Hospital Course Hospital Course Hospital Course: 68-year-old female with PMHx of NIDDM with neuropathy, CKD hypertension, hyperlipidemia, CAD, with recently diagnosed cellulitis of the left toe, is started on doxycycline p.o. twice daily. Patient presents for evaluation of nausea vomiting and hematemesis. patient was prescribed cefdinir a week ago for suspected UTI, more recently on doxycycline PO for left toe cellulitis. On arriaval patient hemodynamically stable. Initial workup included stool blood occult positive, H&H are stable at 9.8 and 30.8 respectively GFR is 19 creatinine to 2.5 magnesium of 1.5 initial troponin is 0.05. CT of the abdomen was deferred due to renal function. Patient was placed on Protonix continuous infusion. Discussed findings with the ED they request bed for admission. Admitted to medicine for further management. Surgery consulted and assisted with care along with podiatry during admission. Problems addressed as follows: -Hematemesis, nausea and vomiting. Likely secondary to gastritis Surgery consulted. Patient was initiated on Protonix. Hemoglobin with slight decrease, still around general baseline of 8-9. Not meeting threshold for transfusion. No active signs of bleeding during admission. Taken for EGD with no active bleeding on procedure performed 01/07/2024. Will continue pantoprazole daily at discharge along with famotidine. No further emesis for at least 24 hours prior to discharge. Tolerating p.o. intake. Stable to discharge home. Recommend repeat CBC, CMP in 1 week and follow-up -Aspirin discontinued at discharge due to concern for bleeding and gastritis -Cellulitis of the left great toe. Podiatry consulted. Patient initiated on IV doxycycline. Imaging of foot including CT showing no concern for abscess or osteomyelitis. No plan for intervention at this time. Given improvement in cellulitis, will transition oral doxycycline to complete course. Plan to follow-up in 1 week with podiatry. Inflammatory markers showing improvement during admission. ALESSANDRO's Date of Service: 01/02/24, Procedure(s): US Arterial Lower Ext Rest, FINDINGS: ANKLE-BRACHIAL PRESSURE INDICES Pressure indices are as follows: RIGHT LOWER EXTREMITY: Ankle-brachial pressure index: 1.02 Comments: Normal LEFT LOWER EXTREMITY: Ankle-brachial pressure index: 1.08 Comments: Normal IMPRESSION: No evidence of significant obstructive peripheral vascular disease of the lower extremities CKD stage III and diabetes [id number]: Sliding scale insulin during admission. A1c well-controlled at 6.4. Continue home regimen at discharge. Resume home regimen for hypertension and hypothyroid. TSH 6.72 months ago. Encourage compliance with medication. Will defer further management to PCP in the outpatient setting Exam Data for Last 24 hours Vital signs and Labs for Last 24 Hours: Temp Pulse Resp BP Pulse Ox O2 Del Method O2 Flow Rate 98.7 F 72 18 158/69 H 95 Room Air 4 01/08/24 07:35 01/08/24 07:35 01/08/24 07:35 01/08/24 07:35 01/08/24 07:35 01/08/24 07:35 01/07/24 13:50 Laboratory Results - last 24 hr 01/07/24 05:27: ESR 37 H 01/07/24 10:35: POC Glucose 96 01/07/24 16:30: POC Glucose 88 01/07/24 20:09: POC Glucose 183 H 01/08/24 05:30: WBC 7.7, RBC 2.71 L, Hgb 8.3 L, Hct 26.4 L, MCV 97.3, MCH 30.6, MCHC 31.4 L, RDW 14.0, Plt Count 238, MPV 8.8, Neut % (Auto) 60.7, Lymph % (Auto) 30.2, [place] % (Auto) 6.4, Eos % (Auto) 2.1, Baso % (Auto) 0.6, Neut # (Auto) 4.7, Lymph # (Auto) 2.3, [place] # (Auto) 0.5, Eos # (Auto) 0.2, Baso # (Auto) 0.1, Sodium 136, Potassium 4.6, Chloride 113 H, Carbon Dioxide 21 L, Anion Gap 6.6, BUN 21 H, Creatinine 2.40 H, Estimated Creat Clear 24, Estimated GFR 20 L, Est GFR ( Amer) 24 L, Glucose 110 H, Calcium 8.4 01/08/24 05:58: POC Glucose 117 H I & O for Last 24 hours: Intake & Output 01/05/24 01/06/24 01/07/24 01/08/24 23:59 23:59 23:59 23:59 Intake Total 873 / 1363 730 / 730 Output Total 0 / 0 300 / 300 200 / 200 Balance 0 / 0 573 / 1063 530 / 530 Weight 60.781 kg 66.179 kg 67.449 kg Constitutional Constitutional: no acute distress, average body habitus, chronically ill appearing and cooperative *Routine HEENT Exam Head: Present normocephalic Eye: Present EOMI and PERRL ENT: Present mucous membranes moist *Routine Neck Exam Neck: Present supple; Absent lymphadenopathy *Routine Respiratory Exam Respiratory: Present CTA bilaterally; Absent rhonchi, wheezes or crackles *Routine Cardiovascular Exam Cardiovascular: Present RRR *Routine Abdominal Exam Abdominal: Present soft and normoactive bowel sounds; Absent tenderness *Routine Rectal Exam Patient deferred: visual exam *Routine Exam Patient deferred: external exam *Routine Extremities Exam Extremities: Absent cyanosis, clubbing or edema Comments: No significant erythema feet. Ulcerative lesion tip of left great toe. Feet nontender. *Routine Skin Exam Skin: Present warm; Absent rash *Routine Neurological Exam Neurological: Present alert, oriented X3 and moving all extremities; Absent altered mental status Results Data Completed and Pending Labs on day of discharge: Labs from last 24 hours 01/08/24 01/08/24 01/07/24 05:58 05:30 20:09 WBC 7.7 RBC 2.71 L Hgb 8.3 L Hct 26.4 L MCV 97.3 MCH 30.6 MCHC 31.4 L RDW 14.0 Plt Count 238 MPV 8.8 Neut % (Auto) 60.7 Lymph % (Auto) 30.2 [place] % (Auto) 6.4 Eos % (Auto) 2.1 Baso % (Auto) 0.6 Neut # (Auto) 4.7 Lymph # (Auto) 2.3 [place] # (Auto) 0.5 Eos # (Auto) 0.2 Baso # (Auto) 0.1 ESR Sodium 136 Potassium 4.6 Chloride 113 H Carbon Dioxide 21 L Anion Gap 6.6 BUN 21 H Creatinine 2.40 H Estimated Creat Clear 24 Estimated GFR 20 L Est GFR ( Amer) 24 L Glucose 110 H POC Glucose 117 H 183 H Calcium 8.4 01/07/24 01/07/24 01/07/24 16:30 10:35 05:27 WBC RBC Hgb Hct MCV MCH MCHC RDW Plt Count MPV Neut % (Auto) Lymph % (Auto) [place] % (Auto) Eos % (Auto) Baso % (Auto) Neut # (Auto) Lymph # (Auto) [place] # (Auto) Eos # (Auto) Baso # (Auto) ESR 37 H Sodium Potassium Chloride Carbon Dioxide Anion Gap BUN Creatinine Estimated Creat Clear Estimated GFR Est GFR ( Amer) Glucose POC Glucose 88 96 Calcium DS: Diagnosis Discharge Diagnosis (1) Diabetic ulcer of toe of left foot associated with type 2 diabetes mellitus: Status: Acute Code(s): E11.621 - Type 2 diabetes mellitus with foot ulcer; L97.529 - Non-pressure chronic ulcer of other part of left foot with unspecified severity Qualifiers: Non-pressure ulcer stage: with fat layer exposed Qualified Code(s): E11.621 - Type 2 diabetes mellitus with foot ulcer; L97.522 - Non-pressure chronic ulcer of other part of left foot with fat layer exposed (2) Diabetic ulcer of toe of left foot: Status: Acute Code(s): E11.621 - Type 2 diabetes mellitus with foot ulcer; L97.529 - Non-pressure chronic ulcer of other part of left foot with unspecified severity Qualifiers: Diabetes mellitus type: type 2 Non-pressure ulcer stage: with fat layer exposed Qualified Code(s): E11.621 - Type 2 diabetes mellitus with foot ulcer; L97.522 - Non-pressure chronic ulcer of other part of left foot with fat layer exposed (3) Hematemesis: Status: Acute Code(s): K92.0 - Hematemesis Qualifiers: Nausea presence: with nausea Qualified Code(s): K92.0 - Hematemesis (4) Nausea & vomiting: Status: Acute Code(s): R11.2 - Nausea with vomiting, unspecified Qualifiers: Vomiting type: unspecified Qualified Code(s): R11.2 - Nausea with v omiting, unspecified (5) Cellulitis of great toe of left foot: Status: Acute Code(s): L03.032 - Cellulitis of left toe (6) CKD stage 3 due to type 2 diabetes mellitus: Status: Chronic Code(s): E11.22 - Type 2 diabetes mellitus with diabetic chronic kidney disease; N18.3 - Chronic kidney disease, stage 3 (moderate) (7) Hypothyroidism: Status: Chronic Code(s): E03.9 - Hypothyroidism, unspecified Qualifiers: Hypothyroidism type: unspecified Qualified Code(s): E03.9 - Hypothyroidism, unspecified (8) Hypertension: Status: Chronic Code(s): I10 - Essential (primary) hypertension Qualifiers: Hypertension type: essential hypertension Qualified Code(s): I10 - Essential (primary) hypertension (9) History of coronary artery stent placement: Status: Chronic Code(s): Z95.5 - Presence of coronary angioplasty implant and graft (10) Coronary artery disease: Status: Chronic Code(s): I25.10 - Atherosclerotic heart disease of [place] coronary artery without angina pectoris Qualifiers: Associated angina: without angina Coronary Disease-Associated Artery/Lesion type: [place] artery [place] vs. transplanted heart: [place] heart Qualified Code(s): I25.10 - Atherosclerotic heart disease of [place] coronary artery without angina pectoris (11) HLD (hyperlipidemia): Status: Chronic Code(s): E78.5 - Hyperlipidemia, unspecified Qualifiers: Hyperlipidemia type: mixed hyperlipidemia Qualified Code(s): E78.2 - Mixed hyperlipidemia (12) Edema of left lower extremity: Status: Acute Code(s): R60.0 - Localized edema (13) Type 2 diabetes mellitus with diabetic polyneuropathy, without long-term current use of insulin: Status: Chronic Code(s): E11.42 - Type 2 diabetes mellitus with diabetic polyneuropathy Meds Home Medications and Allergies Home Medications Medication Instructions Recorded Confirmed Type ferrous sulfate 325 mg (65 mg 325 mg PO DAILY 06/06/23 01/07/24 History iron) tablet atorvastatin 40 mg tablet 40 mg PO HS High cholesterol #90 08/02/23 01/07/24 Rx tabs cholecalciferol (vitamin D3) 25 25 mcg PO DAILY #90 tabs 08/02/23 01/07/24 Rx mcg (1,000 unit) tablet diaper,brief,adult,disposable #80 ea 08/02/23 01/07/24 Rx (Veronique Ultra Briefs-Medium) glipizide 10 mg tablet, extended 10 mg PO DAILY Diabetes #90 tabs 08/02/23 01/07/24 Rx release 24 hr metoprolol succinate 100 mg 100 mg PO DAILY blood pressure #90 08/02/23 01/07/24 Rx tablet,extended release 24 hr tabs nitroglycerin 0.3 mg sublingual 0.3 mg sublingual Q5M PRN chest 08/02/23 01/07/24 Rx tablet pain #25 tabs levothyroxine 50 mcg tablet 50 mcg PO DAILY #90 tabs 08/03/23 01/07/24 Rx (Synthroid) hydralazine 25 mg tablet 25 mg PO TID blood pressure #90 12/19/23 01/07/24 Rx tabs famotidine 40 mg tablet (Pepcid) 40 mg PO DAILY #30 tabs 01/03/24 01/07/24 Rx lancets 28 gauge (FreeStyle #100 ea 01/03/24 01/07/24 Rx Lancets) blood sugar diagnostic (FreeStyle #100 ea 01/04/24 01/07/24 Rx Lite Strips) diphenoxylate-atropine 2.5 1 tab PO Q8HP PRN diarrhea 01/07/24 01/07/24 History mg-0.025 mg tablet (Lomotil) ergocalciferol (vitamin D2) 1,250 1,250 mcg PO WEEKLY 01/07/24 01/07/24 History mcg (50,000 unit) capsule ondansetron HCl 4 mg tablet 4 mg PO Q8HP PRN nausea and 01/07/24 01/07/24 H istory vomiting doxycycline hyclate 100 mg capsule 100 mg PO BID 5 days #10 caps 01/08/24 Rx pantoprazole 40 mg tablet,delayed 40 mg PO DAILY 30 days #30 tabs 01/08/24 Rx release New Prescriptions to Start Prescriptions: doxycycline hyclate Manuel Schwartz pantoprazole Manuel Schwartz Allergies Allergy/AdvReac Type Severity Reaction Status Date / Time No Known Allergies Allergy Verified 01/03/24 10:37 Discharge Plan Disposition Patient Disposition: Home, Self-Care Condition: Good Follow up Plan Follow up with: Alem Arceo PA [Primary Care Provider] - 01/15/24 9:45 am Cary Forrester DPM [Staff Physician] - 01/14/24 3:15 pm Ravi Vann MD [Staff Physician] - Enter time for follow up Prescriptions/Medication Reconciliation: New pantoprazole 40 mg Tablet,Delayed Release (Dr/Ec) 40 mg PO DAILY 30 Days Qty: 30 0RF doxycycline hyclate 100 mg capsule 100 mg PO BID 5 Days Qty: 10 0RF Continued atorvastatin 40 mg tablet 40 mg PO HS Qty: 90 3RF cholecalciferol (vitamin D3) 25 mcg (1,000 unit) tablet 25 mcg PO DAILY Qty: 90 3RF metoprolol succinate 100 mg tablet extended release 24 hr 100 mg PO DAILY Qty: 90 3RF nitroglycerin 0.3 mg tablet, sublingual 0.3 mg sublingual Q5M PRN (Reason: chest pain) Qty: 25 0RF Rx Instructions: do not exceed 3 doses per episode glipizide 10 mg tablet extended release 24hr 10 mg PO DAILY Qty: 90 3RF (DME) Veronique Ultra Briefs-Medium Misc See Rx Instructions .Route Qty: 80 0RF Rx Instructions: As directed famotidine [Pepcid] 40 mg tablet 40 mg PO DAILY Qty: 30 2RF (DME) lancets [FreeStyle Lancets] 28 gauge misc See Rx Instructions .Route Qty: 100 5RF Rx Instructions: As directed ferrous sulfate 325 mg (65 mg iron) tablet 325 mg PO DAILY hydralazine 25 mg tablet 25 mg PO TID Qty: 90 3RF levothyroxine [Synthroid] 50 mcg tablet 50 mcg PO DAILY Qty: 90 0RF (DME) FreeStyle Lite Strips Strip See Rx Instructions .Route Qty: 100 5RF Rx Instructions: tests BID ondansetron HCl 4 mg tablet 4 mg PO Q8HP PRN (Reason: nausea and vomiting) diphenoxylate-atropine [Lomotil] 2.5-0.025 mg tablet 1 tab PO Q8HP PRN (Reason: diarrhea) ergocalciferol (vitamin D2) 1,250 mcg (50,000 unit) capsule 1,250 mcg PO WEEKLY Discontinued aspirin 81 mg tablet,delayed release (DR/EC) 81 mg PO DAILY Qty: 90 3RF doxycycline hyclate 100 mg capsule 100 mg PO BID Problem Reconciliation Problems Reviewed?: Yes Patient Discharge Instructions ACTIVITY: Continue current activity DIET: continue same diet Patient Instructions: Diabetic Foot Ulcer, Cellulitis, Chronic Kidney Disease, DI for Gastrointestinal Bleeding, Nausea and Vomiting-Adult Providers Primary Care Provider: Alem Arceo Admit Provider: Michell Trinh Attending Provider: Michell Trinh
[2024-01-08] MEDS: METOPROLOL SUCCINATE XL 100MG TABLET 100 MG PO (09:05)
[2024-01-08] MEDS: PANTOPRAZOLE 40MG TABLET 40 MG PO (09:05)
[2024-01-08] MEDS: DOXYCYCLINE HYCLATE 100 MG in 0.9 % SODIUM CHLORIDE 250 ML 166.667000000000002 MG IV (09:06)
[2024-01-08] MEDS: HYDRALAZINE HCL 25MG TABLET 25 MG PO (09:12)
--- NOTE | 2024-01-08 11:14 | HMH.PHAINT1 ---
Pharmacy Intervention Comments: DISCHARGE MEDICATION COUNSELING PROVIDED. DISCUSSED THE FOLLOWING MEDICATION CHANGES: -STOP ASPIRIN -START PANTOPRAZOLE (FOR REFLUX, DAILY, TAKE 30 MINUTES BEFORE BREAKFAST, MOST EFFECTIVE WHEN TAKEN CONSISTENTLY, MAY CAUSE HEADACHE). -CONTINUED DOXYCYCLINE (ANTIBIOTIC, TWICE DAILY, TAKE WITH FOOD, N/V/D POSSIBLE, PHOTOSENSITIVITY) PATIENT VERBALIZED NO QUESTIONS AT THIS TIME.
[2024-01-08 11:35] LABS: POC Glucose,Bedside 180 (70-110)
[2024-01-08] MEDS: humaLOG 100 UNITS/ML 10ML VIAL (SSI) SQ (11:36)
[2024-01-08 12:00] VITALS: BP 160/78; PULSE 65; RESP 20; TEMP 36.9; O2SAT 98
--- NOTE | 2024-01-10 13:16 | CARE MANAGER ---
Attempted to contact patient x2 related to hospital discharge. Left VM message. INGRID López
== END 2024-01-08 13:25 | disposition home or self-care (01) ==
LOC: ER 20:17 → 2ND 22:00
PROVIDERS: Nurse Practitioner; Nurse Practitioner Family; Physician Assistant; Surgery; Admitting Provider Internal Medicine; Emergency Provider Emergency Medicine; PCP Physician Assistant; Visit Provider Internal Medicine
PROC: 0DJ08ZZ Inspection of Upper Intestinal Tract, Via Natural or Artificial Opening Endoscopic (ICD-10-PCS; CPT 43235; principal; 2024-01-07 12:00)
DX: E11.621 Type 2 diabetes mellitus with foot ulcer (principal); L97.522 Non-pressure chronic ulcer of other part of left foot with fat layer exposed; K92.0 Hematemesis; R11.2 Nausea with vomiting, unspecified; L03.032 Cellulitis of left toe; E11.22 Type 2 diabetes mellitus with diabetic chronic kidney disease; E03.9 Hypothyroidism, unspecified; I12.9 Hypertensive chronic kidney disease with stage 1 through stage 4 chronic kidney disease, or unspecified chronic kidney disease; Z95.5 Presence of coronary angioplasty implant and graft; I25.10 Atherosclerotic heart disease of native coronary artery without angina pectoris; E78.2 Mixed hyperlipidemia; R60.0 Localized edema; E11.42 Type 2 diabetes mellitus with diabetic polyneuropathy; Z79.899 Other long term (current) drug therapy; N18.30 Chronic kidney disease, stage 3 unspecified; Z79.84 Long term (current) use of oral hypoglycemic drugs; I25.2 Old myocardial infarction
CPT/HCPCS: 11042; 43239; 36415; 73700; 74177; 80048; 80053; 82272; 82962; 83605; 83690; 83735; 84484; 85025; 85610; 85651; 86140; 86850; 93005; 99285; G0328; G0378; J0131; J2405; J3475

== ENCOUNTER 2024-01-15 09:38 | Outpatient (CLI) | payer MEDICARE, SELFPAY ==
[2024-01-15 18:12] LABS: Basophils # 0.1 K/mm3 (0-0.2); Eosinophils # 0.2 K/mm3 (0.0-0.4); Eosinophils % 2.3 % (0.1-12.0); Hematocrit 31.9 % (37.0-47.0); Hemoglobin 9.8 g/dL (12.2-16.2); Lymphocytes # 2.2 K/mm3 (0.7-4.5); Lymphocytes % 28.8 % (10-50); Mean Corpuscular HGB Conc 30.6 g/dL (31.8-35.4); Mean Corpuscular Hemoglobin 30.2 pg (27.0-31.2); Mean Platelet Volume 10.6 fl (7.4-10.4); Monocytes # 0.6 K/mm3 (0.1-1.0); Monocytes % 7.3 % (1.7-9.3); Neutrophils # 4.6 K/mm3 (1.8-7.8); Neutrophils % 60.7 % (37.0-80.0); Platelet Count 265 K/mm3 (142-424); Red Blood Count 3.22 M/mm3 (4.20-5.40); Red Cell Distribution Width 13.8 % (11.5-17.5); White Blood Count 7.5 K/mm3 (4.8-10.8)
[2024-01-15 18:33] LABS: Alanine Aminotransferase 16 U/L (12-78); Albumin Level 3.5 g/dl (3.5-5.0); Albumin/Globulin Ratio 1.3 (1.1-1.8); Alkaline Phosphatase 100 U/L (38-126); Anion Gap 14.3 mEq/L (5-15); Aspartate Amino Transferase 27 U/L (14-36); Bilirubin,Total 0.7 mg/dl (0.2-1.3); Blood Urea Nitrogen 34 mg/dl (7-17); Calcium 8.7 mg/dl (8.4-10.2); Carbon Dioxide 22 mmol/L (22.0-30.0); Chloride 107 mmol/L (98-107); Estimated Glomerular Filt Rate 19 ml/min (>60); GFR (African American) 23 ML/MIN (>60); Globulin 2.8 g/dL (1.3-3.2); Glucose 114 mg/dl (74-100); Potassium 5.3 mmoL/L (3.5-5.1); Sodium 138 mmol/L (136-145); Total Protein,Serum 6.3 g/dl (6.3-8.2)
== END 2024-01-15 23:59 | disposition home or self-care (01) ==
LOC: LAB.DROPOF 01-16 09:38
PROVIDERS: PCP Physician Assistant; Visit Provider Physician Assistant
DX: I10 Essential (primary) hypertension (principal); R53.83 Other fatigue
CPT/HCPCS: 80053; 85025

== ENCOUNTER 2024-01-26 10:35 | Emergency (ER) | payer MEDICARE, SELFPAY ==
[2024-01-26 10:36] VITALS: BP 193/91; PULSE 73; RESP 13; TEMP 36.6; O2SAT 99; BMI 24.0
--- NOTE | 2024-01-26 10:52 | HMH.EDGENADL ---
Discharge Plan Disposition Patient Disposition: Home, Self-Care Prescriptions Prescriptions: New ondansetron 4 mg tablet,disintegrating 4 mg PO Q8H PRN (Reason: nausea and vomiting) 4 Days Qty: 12 0RF No Action atorvastatin 40 mg tablet 40 mg PO HS Qty: 90 3RF cholecalciferol (vitamin D3) 25 mcg (1,000 unit) tablet 25 mcg PO DAILY Qty: 90 3RF metoprolol succinate 100 mg tablet extended release 24 hr 100 mg PO DAILY Qty: 90 3RF nitroglycerin 0.3 mg tablet, sublingual 0.3 mg sublingual Q5M PRN (Reason: chest pain) Qty: 25 0RF Rx Instructions: do not exceed 3 doses per episode glipizide 10 mg tablet extended release 24hr 10 mg PO DAILY Qty: 90 3RF (DME) Veronique Ultra Briefs-Medium Misc See Rx Instructions .Route Qty: 80 0RF Rx Instructions: As directed isosorbide dinitrate 20 mg tablet 20 mg PO BID Qty: 60 3RF Rx Instructions: allow nitrate-free interval of 12-14 hrs per 24-hr period famotidine [Pepcid] 40 mg tablet 40 mg PO DAILY Qty: 30 2RF ferrous sulfate 325 mg (65 mg iron) tablet 325 mg PO DAILY hydralazine 25 mg tablet 25 mg PO TID Qty: 90 3RF levothyroxine [Synthroid] 50 mcg tablet 50 mcg PO DAILY Qty: 90 0RF (DME) FreeStyle Lite Strips Strip See Rx Instructions .Route Qty: 100 5RF Rx Instructions: tests BID (DME) lancets [FreeStyle Lancets] 28 gauge misc See Rx Instructions .Route Qty: 100 5RF Rx Instructions: bid testing. e11.9 (DME) Accu-Chek Guide test strips Strip See Rx Instructions .Route Qty: 100 3RF Rx Instructions: As directed or once daily ondansetron HCl 4 mg tablet 4 mg PO Q8HP PRN (Reason: nausea and vomiting) diphenoxylate-atropine [Lomotil] 2.5-0.025 mg tablet 1 tab PO Q8HP PRN (Reason: diarrhea) ergocalciferol (vitamin D2) 1,250 mcg (50,000 unit) capsule 1,250 mcg PO WEEKLY pantoprazole 40 mg Tablet,Delayed Release (Dr/Ec) 40 mg PO DAILY 30 Days Qty: 30 0RF doxycycline hyclate 100 mg capsule 100 mg PO BID 5 Days Qty: 10 0RF Referrals Follow up/Referrals: Alem Arceo PA [Primary Care Provider] - See instructions Activity Restrictions/Add. Instructions Additional Instructions/Restrictions: At this time it was felt you are safe to be discharged home. If new or worsening symptoms please do not hesitate to return the emergency department. Please take your medications as prescribed. Clinical Impressions Clinical Impression: Vomiting Instructions Patient Instructions: DI for Diarrhea and Traveler's Diarrhea -- Adult, DI for Diarrhea and Traveler's Diarrhea -- Child, DI for Nausea -- Adult, DI for Nausea -- Child Discharge ED Provider: Onel Taylor General Adult HPI General Chief complaint: Nausea/Vomiting/Diarrhea Stated complaint: vomiting, weakness, off balance Time Seen by Provider: 01/26/24 10:35 Mode of Arrival: Wheelchair Source of Information: Patient Limitations: No Limitations Description of Symptoms (Recalled from ER Triage Doc. by RN): pt reports she has been experiencing vomitting since 9 am this morning. pt reports no blood in vomit. no abd pain. no diarrhea History of Present Illness HPI narrative: Patient is a 68-year-old female with past medical history of [id number] diabetes hypertension, hyperlipidemia who presents emergency department for evaluation of vomiting. Onset was acute, 9 AM this morning. No chest pain or abdominal pain, nonbloody. Patient has chronic nonbloody diarrhea at baseline given her history of cholecystectomy. No other acute complaints at this time. Patient was recently admitted with stable hemoglobin for EGD and was discharged on pantoprazole and famotidine appropriately. Related Data Home Medications Medication Instructions Recorded Confirmed ferrous sulfate 325 mg (65 mg 325 mg PO DAILY 06/06/23 01/22/24 iron) tablet diphenoxylate-atropine 2.5 1 tab PO Q8HP PRN diarrhea 01/07/24 01/22/24 mg-0.025 mg tablet (Lomotil) ergocalciferol (vitamin D2) 1,250 1,250 mcg PO WEEKLY 01/07/24 01/22/24 mcg (50,000 unit) capsule ondansetron HCl 4 mg tablet 4 mg PO Q8HP PRN nausea and 01/07/24 01/22/24 vomiting Previous Rx's Medication Instructions Recorded atorvastatin 40 mg tablet 40 mg PO HS High cholesterol #90 08/02/23 tabs cholecalciferol (vitamin D3) 25 25 mcg PO DAILY #90 tabs 08/02/23 mcg (1,000 unit) tablet diaper,brief,adult,disposable #80 ea 08/02/23 (Veronique Ultra Briefs-Medium) glipizide 10 mg tablet, extended 10 mg PO DAILY Diabetes #90 tabs 08/02/23 release 24 hr metoprolol succinate 100 mg 100 mg PO DAILY blood pressure #90 08/02/23 tablet,extended release 24 hr tabs nitroglycerin 0.3 mg sublingual 0.3 mg sublingual Q5M PRN chest 08/02/23 tablet pain #25 tabs levothyroxine 50 mcg tablet 50 mcg PO DAILY #90 tabs 08/03/23 (Synthroid) hydralazine 25 mg tablet 25 mg PO TID blood pressure #90 12/19/23 tabs famotidine 40 mg tablet (Pepcid) 40 mg PO DAILY #30 tabs 01/03/24 blood sugar diagnostic (FreeStyle #100 ea 01/04/24 Lite Strips) doxycycline hyclate 100 mg capsule 100 mg PO BID 5 days #10 caps 01/08/24 pantoprazole 40 mg tablet,delayed 40 mg PO DAILY 30 days #30 tabs 01/08/24 release isosorbide dinitrate 20 mg tablet 20 mg PO BID #60 tabs 01/17/24 lancets 28 gauge (FreeStyle #100 ea 01/17/24 Lancets) blood sugar diagnostic (Accu-Chek #100 ea 01/23/24 Guide test strips) ondansetron 4 mg disintegrating 4 mg PO Q8H PRN nausea and 01/26/24 tablet vomiting 4 days #12 tabs Allergies Allergy/AdvReac Type Severity Reaction Status Date / Time No Known Allergies Allergy Verified 01/22/24 13:47 [facility] Disclaimer: The information contained in this section may have been updated after the patient was seen, as this information can be updated by other users. Medical History (Updated 01/26/24 @ 12:23 by Onel Taylor MD) Abdominal pain Dyspnea CKD stage 3 due to type 2 diabetes mellitus PVD (peripheral vascular disease) Edema of left lower extremity Wound of left foot Elevated bilirubin Typical angina Hypothyroidism Hyperkalemia Type 2 diabetes mellitus with diabetic polyneuropathy, without long-term current use of insulin Diarrhea Type 2 diabetes mellitus Decreased pulses in feet Neuropathy Anxiety HLD (hyperlipidemia) Family History Other No significant family history Social History Smoking Status: Never smoker alcohol intake: never substance use type: denies use current occupational status: unemployed Travel in the last 8 weeks: None household members: significant other housing: house current occupational exposures/hazards: No caffeine: No ROS Obtained: Yes Systems reviewed as appropriate & no additional complaints except as documented Physical Exam General General appearance: alert and in no apparent distress Head Head exam: atraumatic and normocephalic Eye Eye exam: Present PERRL and EOMI ENT ENT exam: Present mucous membranes moist Neck Neck exam: Present normal inspection Chest Chest inspection: Present normal inspection and symmetric chest wall rise Respiratory Respiratory exam: Present normal lung sounds bilaterally; Absent respiratory distress Cardiovascular Cardiovascular exam: Present regular rate and normal rhythm Abdominal Exam Abdominal exam: Present soft; Absent tenderness, guarding or rebound Extremities Exam Extremities exam: Present normal inspection Neurological Exam Neurological exam: Present alert Psychiatric Psychiatric exam: Present normal affect Skin Skin exam: Present warm and dry Medical Decision Making George Inquiry Pt receiving controlled substance: No Vital Signs: 01/26/24 10:36 01/26/24 11:31 Temperature 97.8 F Temperature Source Oral Pulse Rate 73 Pulse Rate [Left Radial] 73 Respiratory Rate 13 Blood Pressure 186/75 H Blood Pressure [Right Arm] 193/91 H Blood Pressure Mean 112 Blood Pressure Mean [Right Arm] 125 02 Sat by Pulse Oximetry 99 99 Oxygen Delivery Method Room Air Lab Data Lab Results 01/26/24 10:46: WBC 8.4, RBC 3.69 L, Hgb 10.9 L, Hct 36.2 L, MCV 97.8, MCH 29.4, MCHC 30.0 L, RDW 13.6, Plt Count 285, MPV 8.7, Neut % (Auto) 73.3, Lymph % (Auto) 21.0, [place] % (Auto) 4.1, Eos % (Auto) 1.0, Baso % (Auto) 0.7, Neut # (Auto) 6.2, Lymph # (Auto) 1.8, [place] # (Auto) 0.4, Eos # (Auto) 0.1, Baso # (Auto) 0.1, Sodium 139, Potassium 4.7, Chloride 112 H, Carbon Dioxide 21 L, Anion Gap 10.7, BUN 26 H, Creatinine 2.70 H, Estimated Creat Clear 20, Estimated GFR 18 L*, Est GFR ( Amer) 21 L, Glucose 103 H, Calcium 9.0, Total Bilirubin 0.7, AST 39 H, ALT 25, Alkaline Phosphatase 124, Total Protein 7.3, Albumin 3.9, Globulin 3.4 H, Albumin/Globulin Ratio 1.1, Lipase 84 01/26/24 10:59: Urine Color Yellow, Urine Appearance Clear, Urine pH 5.5, Ur Specific [place] 1.025, Urine Protein 1+, Urine Glucose (UA) Negative, Urine Ketones Negative, Urine Blood Negative, Urine Nitrate Negative, Urine Bilirubin Negative, Urine Urobilinogen 0.2, Ur Leukocyte Esterase 2+ A, Urine RBC None, Urine WBC 5-10, Ur Squamous Epith Cells 10-20, Urine Bacteria 1+ 01/26/24 10:46 01/26/24 10:46 Orders (Tests/Meds): ED MEDICATIONS Discontinued Medications Generic Name Dose Route Start Last Admin Trade Name Vernq PRN Reason Stop Dose Admin Lactated Ringer's 1,000 mls @ 999 mls/hr 01/26/24 10:51 01/26/24 11:01 Lactated Ringer's 1000 Ml Bag IV 01/26/24 11:51 999 mls/hr .Q1H1M ONE Administration Ondansetron HCl 4 mg 01/26/24 10:51 01/26/24 11:02 Ondansetron 4mg/2ml Vial IV 01/26/24 10:52 4 mg ONCE ONE Administration ORDERS Category Date Time Status CBC w/Auto Diff [Complete Blood Count Auto Diff] Stat Lab 01/26/24 10:46 Completed CMP [Comprehensive Metabolic Panel] Stat Lab 01/26/24 10:46 Completed Lipase Stat Lab 01/26/24 10:46 Completed UA [Urinalysis and Microscopic] Stat Lab 01/26/24 10:59 Completed Urine Culture Stat Micro 01/26/24 10:59 Received Medical Decision Narrative: In summary patient is a 68-year-old female with past medical history described above who presents emergency department for evaluation of vomiting. Patient is hemodynamically stable nontoxic-appearing upon arrival, afebrile. Differential diagnosis includes viral syndrome, pancreatitis, among others. Patient has a nontender abdominal exam therefore limited workup will be conducted with hematologic labs. Imaging was considered but will be deferred. Initial inventions include crystalloid bolus and Zofran. Initial workup reviewed by me, hematologic labs are nonactionable, no leukocytosis, stable CKD, no critical electrolyte abnormality. Urinalysis interpreted by me, contaminated and equivocal however patient does not have any symptomatic dysuria therefore treatment will be deferred. Patient underwent p.o. trial was successful and is appropriate for discharge at this time. Critical Care Critical Care Time Critical Care Time: No
[2024-01-26] MEDS: LACTATED RINGERS 1000ML 1,000 ML 999 ML IV (11:01)
[2024-01-26] MEDS: ONDANSETRON 4MG/2ML VIAL 4 MG IV (11:02)
[2024-01-26 11:04] LABS: Microscopic, Urine URINE MICROSCOPIC (MICROSCOPIC)
[2024-01-26 11:10] LABS: Appearance,Urine CLEAR (Clear); Bilirubin,Urine Negative (Negative); Blood, Urine Negative (Negative); Color,Urine YELLOW (Yellow); Glucose,Urine (UA) Negative (Negative); Ketones,Urine Negative (Negative); Leukocyte Esterase,Urine 2+ (Negative); Nitrate,Urine Negative (Negative); PH,Urine 5.5 (5.0-8.5); Protein,Urine 1+ (Negative); Specific Gravity, Urine 1.025 (1.005-1.030); Urobilinogen,Urine 0.2 EU/dl (0.2)
[2024-01-26 11:14] LABS: Chloride 112 mmol/L (98-107); Potassium 4.7 mmoL/L (3.5-5.1); Sodium 139 mmol/L (136-145)
[2024-01-26 11:15] LABS: Basophils # 0.1 K/mm3 (0-0.2); Basophils % 0.7 % (0.1-2.0); Eosinophils # 0.1 K/mm3 (0.0-0.4); Hematocrit 36.2 % (37.0-47.0); Hemoglobin 10.9 g/dL (12.2-16.2); Lymphocytes # 1.8 K/mm3 (0.7-4.5); Mean Corpuscular Hemoglobin 29.4 pg (27.0-31.2); Mean Corpuscular Volume 97.8 fl (81-99); Mean Platelet Volume 8.7 fl (7.4-10.4); Monocytes # 0.4 K/mm3 (0.1-1.0); Monocytes % 4.1 % (1.7-9.3); Neutrophils # 6.2 K/mm3 (1.8-7.8); Neutrophils % 73.3 % (37.0-80.0); Platelet Count 285 K/mm3 (142-424); Red Blood Count 3.69 M/mm3 (4.20-5.40); Red Cell Distribution Width 13.6 % (11.5-17.5); White Blood Count 8.4 K/mm3 (4.8-10.8)
[2024-01-26 11:16] LABS: Alanine Aminotransferase 25 U/L (12-78); Aspartate Amino Transferase 39 U/L (14-36); Blood Urea Nitrogen 26 mg/dl (7-17); Creatinine Clearance Estimated 20 mL/min (50-200); Estimated Glomerular Filt Rate 18 ml/min (>60); GFR (African American) 21 ML/MIN (>60)
[2024-01-26 11:17] LABS: Albumin Level 3.9 g/dl (3.5-5.0); Albumin/Globulin Ratio 1.1 (1.1-1.8); Alkaline Phosphatase 124 U/L (38-126); Anion Gap 10.7 mEq/L (5-15); Bilirubin,Total 0.7 mg/dl (0.2-1.3); Carbon Dioxide 21 mmol/L (22.0-30.0); Globulin 3.4 g/dL (1.3-3.2); Glucose 103 mg/dl (74-100); Lipase 84 U/L (23-300); Total Protein,Serum 7.3 g/dl (6.3-8.2)
[2024-01-26 11:31] VITALS: BP 186/75; PULSE 73; O2SAT 99
[2024-01-26 11:38] LABS: Bacteria,Urine 1+ /lpf
[2024-01-26 12:01] VITALS: BP 172/87; PULSE 72; O2SAT 97
[2024-01-26 12:25] VITALS: BP 172/87; PULSE 92; RESP 16; TEMP 36.6
--- NOTE | 2024-01-26 12:45 | PC.NURSE ---
Rounded on patient, no needs voiced at this time.
== END 2024-01-26 13:05 | disposition home or self-care (01) ==
PROVIDERS: Emergency Provider Emergency Medicine; PCP Physician Assistant
DX: R11.2 Nausea with vomiting, unspecified (principal); E11.22 Type 2 diabetes mellitus with diabetic chronic kidney disease; N18.2 Chronic kidney disease, stage 2 (mild); I12.9 Hypertensive chronic kidney disease with stage 1 through stage 4 chronic kidney disease, or unspecified chronic kidney disease; E78.5 Hyperlipidemia, unspecified; E03.9 Hypothyroidism, unspecified; I73.9 Peripheral vascular disease, unspecified; Z79.84 Long term (current) use of oral hypoglycemic drugs
CPT/HCPCS: 80053; 81001; 83690; 85025; 87086; 96361; 96374; 99284; J2405; J7120

== ENCOUNTER 2024-02-01 08:35 | Outpatient (CLI) | payer MEDICARE, SELFPAY ==
--- NOTE | 2024-02-01 08:36 | FL_ITS ---
FINAL REPORT CLINICAL HISTORY: ABD PAIN FT: 3:13 DAP: 2812.32 136.37 MGY FINDINGS: UPPER GI WITH SBFT HISTORY: Generalized abdominal pain PROCEDURE: The patient ingested barium. Effervescent crystals were also administered. Spot and overhead films were obtained. Additional barium was administered for a SBFT. Number of images: 29 Fluoro time: 3 minutes 13 seconds DAP: 2812.32 uGym2. FINDINGS: UGI: The esophagus is normal. There is no small hiatal hernia. There is no gastroesophageal reflux. Peristalsis is normal. Retained debris is identified in the stomach. The duodenal bulb is normal. SBFT: The school clerk film is normal. There is no evidence of obstruction. The mucosal fold pattern is normal. The terminal ilium is normal. IMPRESSION: Retained debris in the stomach. Consider gastroparesis. Normal SBFT. Films reviewed , interpreted and dictated by Dr. Ortega. Transcribed by Clive Flores PA-C. Reviewed, Interpreted and Dictated by Ilana Ortega MD Transcribed by SAJI Krishnamurthy Authenticated and [facility]
[2024-02-01] MEDS: BARIUM SULFATE(LIQUID E-Z-PAQUE);355ML BOTTLE 355 ML PO (09:18)
[2024-02-01] MEDS: BARIUM SULFATE (E-Z-HD 340GM);135ML BOTTLE 135 ML PO (09:18)
[2024-02-01] MEDS: E-Z-GASII EFFERVESCENT GRANULES;1PK 1 EACH PO (09:18)
== END 2024-02-01 23:59 | disposition home or self-care (01) ==
LOC: RAD 08:36
PROVIDERS: PCP Physician Assistant; Visit Provider Surgery
DX: R10.9 Unspecified abdominal pain (principal)
CPT/HCPCS: 74246; 74248

== ENCOUNTER 2024-03-03 09:30 | Outpatient (CLI) | payer MEDICARE, MEDICAID, SELFPAY ==
[2024-03-03 09:46] LABS: Microscopic, Urine URINE MICROSCOPIC (MICROSCOPIC)
[2024-03-03 10:22] LABS: Hematocrit 29.7 % (37.0-47.0); Hemoglobin 9.8 g/dL (12.2-16.2); Mean Corpuscular Hemoglobin 31.2 pg (27.0-31.2); Mean Corpuscular Volume 94.4 fl (81-99); Platelet Count 261 K/mm3 (142-424); Red Blood Count 3.15 M/mm3 (4.20-5.40); Red Cell Distribution Width 13.9 % (11.5-17.5); White Blood Count 10.6 K/mm3 (4.8-10.8)
[2024-03-03 11:01] LABS: Albumin Level 3.2 g/dl (3.5-5.0); Anion Gap 10.2 mEq/L (5-15); Blood Urea Nitrogen 36 mg/dl (7-17); Calcium 8.8 mg/dl (8.4-10.2); Carbon Dioxide 18 mmol/L (22.0-30.0); Chloride 115 mmol/L (98-107); Estimated Glomerular Filt Rate 16 ml/min (>60); GFR (African American) 19 ML/MIN (>60); Glucose 105 mg/dl (74-100); Phosphorous 5.1 mg/dl (2.5-4.5); Potassium 4.2 mmoL/L (3.5-5.1); Sodium 139 mmol/L (136-145)
[2024-03-03 12:04] LABS: Appearance,Urine SL CLOUDY (Clear); Bilirubin,Urine Negative (Negative); Blood, Urine Negative (Negative); Color,Urine YELLOW (Yellow); Glucose,Urine (UA) Negative (Negative); Ketones,Urine Negative (Negative); Leukocyte Esterase,Urine 1+ (Negative); Nitrate,Urine Negative (Negative); Protein,Urine TRACE (Negative); Specific Gravity, Urine 1.025 (1.005-1.030); Urobilinogen,Urine 0.2 EU/dl (0.2)
[2024-03-03 12:13] LABS: Bacteria,Urine 2+ /lpf; WBC,Urine 20-50 #/hpf (0-3)
[2024-03-03 12:14] LABS: Creatinine,Urine Random 115 mg/dL (Not Estab.)
== END 2024-03-03 23:59 | disposition home or self-care (01) ==
LOC: LAB 09:31
PROVIDERS: PCP Physician Assistant; Visit Provider Internal Medicine Nephrology
DX: N18.4 Chronic kidney disease, stage 4 (severe) (principal); R06.00 Dyspnea, unspecified; E11.621 Type 2 diabetes mellitus with foot ulcer; E11.22 Type 2 diabetes mellitus with diabetic chronic kidney disease
CPT/HCPCS: 36415; 80069; 81001; 82570; 84156; 85014; 85018; 85048; 85049; 87086; 87088; 87186

== ENCOUNTER 2024-03-27 15:22 | Emergency (ER) | payer MEDICARE, MEDICAID, SELFPAY ==
[2024-03-27] VITALS (12 sets, daily range): BP systolic 131–231; BP diastolic 63–144; PULSE 80–109; RESP 15–19; TEMP 36.7–36.8; O2SAT 94–100; BMI 25.6
--- NOTE | 2024-03-27 15:35 | XR_ITS ---
FINAL REPORT CLINICAL HISTORY: dyspnea COMPARISON: 11/27/2018 FINDINGS: The heart size is normal. The mediastinum is normal. There is no focal infiltrate or edema. There are no pleural effusions. There is no pneumothorax. There is no osseous abnormality. IMPRESSION: No acute cardiopulmonary process Reviewed, Interpreted and Dictated by Ryan Streeter MD Transcribed by Coby Mcdaniel Authenticated and [facility]
--- NOTE | 2024-03-27 15:35 | CT_ITS ---
FINAL REPORT TECHNIQUE: multiple axial CT images were performed from the foramen magnum to the vertex without enhancement. Axial imaging of the head was obtained without contrast. This study was performed with techniques to keep radiation doses as low as reasonably achievable, (ALARA). Individualized dose reduction techniques using automated exposure control or adjustment of mA and/or kV according to the patient's size were employed. CLINICAL HISTORY: sudden n/v, HTN COMPARISON: 03/22/2022 FINDINGS: The ventricles are mildly enlarged. There is mild diffuse atrophy. There is periventricular white matter change likely related to small vessel disease. There is no evidence of hemorrhage. No masses are identified. No extra-axial fluid is seen. The sinuses are normal. IMPRESSION: Mild atrophy and chronic changes without acute process. Reviewed, Interpreted and Dictated by Ryan Streeter MD Transcribed by Coby Mcdaniel Authenticated and [facility]
--- NOTE | 2024-03-27 15:38 | HMH.EDGENADL ---
Discharge Plan Disposition Patient Disposition: Home, Self-Care Prescriptions Prescriptions: New ondansetron 4 mg tablet,disintegrating 4 mg PO Q6H PRN (Reason: nausea and vomiting) 5 Days Qty: 20 0RF No Action atorvastatin 40 mg tablet 40 mg PO HS Qty: 90 3RF cholecalciferol (vitamin D3) 25 mcg (1,000 unit) tablet 25 mcg PO DAILY Qty: 90 3RF metoprolol succinate 100 mg tablet extended release 24 hr 100 mg PO DAILY Qty: 90 3RF nitroglycerin 0.3 mg tablet, sublingual 0.3 mg sublingual Q5M PRN (Reason: chest pain) Qty: 25 0RF Rx Instructions: do not exceed 3 doses per episode glipizide 10 mg tablet extended release 24hr 10 mg PO DAILY Qty: 90 3RF (DME) Veronique Ultra Briefs-Medium Misc See Rx Instructions .Route Qty: 80 0RF Rx Instructions: As directed isosorbide dinitrate 20 mg tablet 20 mg PO BID Qty: 60 3RF Rx Instructions: allow nitrate-free interval of 12-14 hrs per 24-hr period famotidine [Pepcid] 40 mg tablet 40 mg PO DAILY Qty: 30 2RF ferrous sulfate 325 mg (65 mg iron) tablet 325 mg PO DAILY hydralazine 25 mg tablet 25 mg PO TID Qty: 90 3RF levothyroxine [Synthroid] 50 mcg tablet 50 mcg PO DAILY Qty: 90 0RF (DME) FreeStyle Lite Strips Strip See Rx Instructions .Route Qty: 100 5RF Rx Instructions: tests BID (DME) lancets [FreeStyle Lancets] 28 gauge misc See Rx Instructions .Route Qty: 100 5RF Rx Instructions: bid testing. e11.9 ondansetron HCl 4 mg tablet 4 mg PO Q8HP PRN (Reason: nausea and vomiting) diphenoxylate-atropine [Lomotil] 2.5-0.025 mg tablet 1 tab PO Q8HP PRN (Reason: diarrhea) ergocalciferol (vitamin D2) 1,250 mcg (50,000 unit) capsule 1,250 mcg PO WEEKLY pantoprazole 40 mg Tablet,Delayed Release (Dr/Ec) 40 mg PO DAILY 30 Days Qty: 30 0RF doxycycline hyclate 100 mg capsule 100 mg PO BID 5 Days Qty: 10 0RF ondansetron 4 mg tablet,disintegrating 4 mg PO Q8H PRN (Reason: nausea and vomiting) 4 Days Qty: 12 0RF Activity Restrictions/Add. Instructions Additional Instructions/Restrictions: Your symptoms are most likely secondary to either food poisoning or a viral syndrome but no emergent medical condition was identified. Please return with any significant worsening of her symptoms Clinical Impressions Clinical Impression: Nausea & vomiting, Hypertension, Noncompliance with medications Instructions Patient Instructions: DI for Diarrhea and Traveler's Diarrhea -- Adult, DI for Diarrhea and Traveler's Diarrhea -- Child, DI for Nausea -- Adult, DI for Nausea -- Child Print Language Print Language: Albanian Discharge ED Provider: Dustin Anders General Adult HPI General Chief complaint: Nausea/Vomiting/Diarrhea Stated complaint: n/v Time Seen by Provider: 03/27/24 15:27 Mode of Arrival: EMS Source of Information: Patient Limitations: No Limitations Description of Symptoms (Recalled from ER Triage Doc. by RN): pt presents to ED with c/o nausea, vomitting. pt reports that she ate a salad today from the cafeteria, pt reports approx 35 mins [employer]. History of Present Illness HPI narrative: Patient is a 68-year-old female presenting today with nausea and vomiting. She states that all of a sudden few hours ago she felt drunk. She described this as feeling little disoriented and off balance but she states those symptoms have since gone away and she only has nausea and vomiting right now she has not had any headache no other focal neurologic complaint such as changes in vision coordination numbness weakness tingling etc. She denies any chest pain. She denies any shortness of breath. She denies any thing other than nausea and vomiting at the moment. No positive sick contacts. She does have a history of chronic kidney disease and heart disease that she is unable to articulate but states she follows up closely with a chicken and fish cleaner. She also states she has a history of hypertension has not had any of her medications today. She states she regularly misses medications. Related Data Home Medications ?Medication ?Instructions ?Recorded ?Confirmed ferrous sulfate 325 mg (65 mg 325 mg PO DAILY 06/06/23 03/19/24 iron) tablet diphenoxylate-atropine 2.5 1 tab PO Q8HP PRN diarrhea 01/07/24 03/19/24 mg-0.025 mg tablet (Lomotil) ergocalciferol (vitamin D2) 1,250 1,250 mcg PO WEEKLY 01/07/24 03/19/24 mcg (50,000 unit) capsule ondansetron HCl 4 mg tablet 4 mg PO Q8HP PRN nausea and 01/07/24 03/19/24 vomiting Previous Rx's ?Medication ?Instructions ?Recorded atorvastatin 40 mg tablet 40 mg PO HS High cholesterol #90 08/02/23 tabs cholecalciferol (vitamin D3) 25 25 mcg PO DAILY #90 tabs 08/02/23 mcg (1,000 unit) tablet diaper,brief,adult,disposable #80 ea 08/02/23 (Veronique Ultra Briefs-Medium) glipizide 10 mg tablet, extended 10 mg PO DAILY Diabetes #90 tabs 08/02/23 release 24 hr metoprolol succinate 100 mg 100 mg PO DAILY blood pressure #90 08/02/23 tablet,extended release 24 hr tabs nitroglycerin 0.3 mg sublingual 0.3 mg sublingual Q5M PRN chest 08/02/23 tablet pain #25 tabs levothyroxine 50 mcg tablet 50 mcg PO DAILY #90 tabs 08/03/23 (Synthroid) hydralazine 25 mg tablet 25 mg PO TID blood pressure #90 12/19/23 tabs famotidine 40 mg tablet (Pepcid) 40 mg PO DAILY #30 tabs 01/03/24 doxycycline hyclate 100 mg capsule 100 mg PO BID 5 days #10 caps 01/08/24 pantoprazole 40 mg tablet,delayed 40 mg PO DAILY 30 days #30 tabs 01/08/24 release isosorbide dinitrate 20 mg tablet 20 mg PO BID #60 tabs 01/17/24 ondansetron 4 mg disintegrating 4 mg PO Q8H PRN nausea and 01/26/24 tablet vomiting 4 days #12 tabs blood sugar diagnostic (FreeStyle #100 ea 01/28/24 Lite Strips) lancets 28 gauge (FreeStyle #100 ea 01/28/24 Lancets) ondansetron 4 mg disintegrating 4 mg PO Q6H PRN nausea and 03/27/24 tablet vomiting 5 days #20 tabs Allergies Allergy/AdvReac Type Severity Reaction Status Date / Time No Known Allergies Allergy Verified 03/19/24 13:56 [facility] Disclaimer: The information contained in this section may have been updated after the patient was seen, as this information can be updated by other users. Medical History Abdominal pain Dyspnea CKD stage 3 due to type 2 diabetes mellitus PVD (peripheral vascular disease) Edema of left lower extremity Wound of left foot Elevated bilirubin Typical angina Hypothyroidism Hyperkalemia Type 2 diabetes mellitus with diabetic polyneuropathy, without long-term current use of insulin Diarrhea Type 2 diabetes mellitus Decreased pulses in feet Neuropathy Anxiety HLD (hyperlipidemia) Family History Other No significant family history Social History Smoking Status: Never smoker alcohol intake: never substance use type: denies use current occupational status: unemployed Travel in the last 8 weeks: None household members: significant other housing: house current occupational exposures/hazards: No caffeine: No ROS Obtained: Yes All systems reviewed & no additional complaints except as documented Physical Exam General General appearance: alert and in no apparent distress Respiratory Respiratory exam: Present normal lung sounds bilaterally; Absent respiratory distress Cardiovascular Cardiovascular exam: Present normal rhythm and tachycardia Abdominal Exam Abdominal exam: Present soft; Absent distention or tenderness Extremities Exam Extremities exam: Present normal inspection and full ROM Neurological Exam Neurological exam: Present alert, oriented X3, CN II-XII intact and other (Normal finger-nose and [id number] bilaterally); Absent motor sensory deficit Medical Decision Making George Inquiry Pt receiving controlled substance: No Vital Signs: 03/27/24 15:23 03/27/24 15:25 03/27/24 15:31 Temperature 98.0 F Temperature Source Oral Pulse Rate 93 H 98 H Pulse Rate [Left Radial] 95 H Respiratory Rate 19 Blood Pressure 216/124 H 217/94 H Blood Pressure [Right Arm] 216/124 H Blood Pressure Mean [Right Arm] 154 02 Sat by Pulse Oximetry 99 100 99 Oxygen Delivery Method Room Air Room Air Room Air 03/27/24 15:56 03/27/24 16:00 03/27/24 16:30 Temperature Temperature Source Pulse Rate 89 89 92 H Pulse Rate [Left Radial] Respiratory Rate Blood Pressure 191/144 H 200/99 H 202/103 H Blood Pressure [Right Arm] Blood Pressure Mean [Right Arm] 02 Sat by Pulse Oximetry 97 99 97 Oxygen Delivery Method Room Air Room Air Room Air 03/27/24 16:43 03/27/24 17:00 03/27/24 17:30 Temperature Temperature Source Pulse Rate 109 H 98 H 84 Pulse Rate [Left Radial] Respiratory Rate Blood Pressure 231/136 H 207/107 H 154/71 H Blood Pressure [Right Arm] Blood Pressure Mean [Right Arm] 02 Sat by Pulse Oximetry 99 98 94 L Oxygen Delivery Method Room Air Room Air Room Air 03/27/24 18:01 03/27/24 18:30 Temperature Temperature Source Pulse Rate 80 86 Pulse Rate [Left Radial] Respiratory Rate Blood Pressure 131/63 159/73 H Blood Pressure [Right Arm] Blood Pressure Mean [Right Arm] 02 Sat by Pulse Oximetry 95 97 Oxygen Delivery Method Room Air Room Air Lab Data Lab results reviewed: Yes I reviewed the patient's lab results. Lab Results 03/27/24 15:24: WBC 10.8, RBC 3.41 L, Hgb 10.4 L, Hct 32.3 L, MCV 94.5, MCH 30.4, MCHC 32.1, RDW 13.7, Plt Count 325, MPV 8.3, Neut % (Auto) 62.7, Lymph % (Auto) 28.4, Harrison % (Auto) 4.8, Eos % (Auto) 3.4, Baso % (Auto) 0.7, Neut # (Auto) 6.7, Lymph # (Auto) 3.1, Harrison # (Auto) 0.5, Eos # (Auto) 0.4, Baso # (Auto) 0.1, Sodium 136, Potassium 4.4, Chloride 111 H, Carbon Dioxide 19 L, Anion Gap 10.4, BUN 21 H, Creatinine 2.20 H, Estimated Creat Clear 25, Estimated GFR 22 L, Est GFR ( Amer) 27 L, Glucose 292 H, Calcium 8.8, Total Bilirubin 0.8, AST 31, ALT 21, Alkaline Phosphatase 117, Troponin I < 0.02, Total Protein 7.3, Albumin 3.9, Globulin 3.4 H, Albumin/Globulin Ratio 1.1, Lipase 130 03/27/24 15:24 03/27/24 15:24 Orders (Tests/Meds): ED MEDICATIONS Generic Name Dose Route Start Last Admin Trade Name Freq PRN Reason Stop Dose Admin Sodium Chloride 10 ml 03/27/24 17:11 Sodium Chloride 0.9% 10ml Vial IV 04/26/24 17:10 NEEDED PRN to Dilute Lorazepam inj Discontinued Medications Generic Name Dose Route Start Last Admin Trade Name Freq PRN Reason Stop Dose Admin Lactated Ringer's 1,000 mls @ 999 mls/hr 03/27/24 15:45 03/27/24 15:53 Lactated Ringer's 1000 Ml Bag IV 03/27/24 16:45 999 mls/hr .Q1H1M DEXTER Administration Lorazepam 1 mg 03/27/24 17:11 03/27/24 17:16 Lorazepam 2mg/Ml Vial IV 03/27/24 17:12 1 mg ONCE ONE Administration Ondansetron HCl 4 mg 03/27/24 15:35 03/27/24 15:53 Ondansetron 4mg/2ml Vial IV 03/27/24 15:36 4 mg ONCE ONE Administration ORDERS Category Date Time Status CT head/brain wo con Stat Cat Scan 03/27/24 15:35 Taken CXR --portable [XR chest portable] Stat Exams 03/27/24 15:35 Completed CBC w/Auto Diff [Complete Blood Count Auto Diff] Stat Lab 03/27/24 15:24 Completed CMP [Comprehensive Metabolic Panel] Stat Lab 03/27/24 15:24 Completed Lipase Stat Lab 03/27/24 15:24 Completed Trop I [Troponin I] Stat Lab 03/27/24 15:24 Completed Troponin I Q3H Lab 03/27/24 21:45 Ordered ECG Data Tracing #1: I reviewed this ECG and interpreted as documented below: Ventricular rate 96 normal sinus rhythm there is a left anterior fascicular block and left ventricular hypertrophy which are consistent with old EKGs no acute ischemic changes noted no significant new conduction abnormalities noted Medical Decision Narrative: Patient is a 68-year-old female presenting today with sudden nausea and vomiting hypertension and tachycardia. She denies any cardiopulmonary complaints at the moment but does have underlying heart disease. Will work her up for possible acute coronary syndrome which is unlikely. Additionally we will get metabolic tests and administer IV fluids and nausea medications. Her neurologic exam is nonfocal but she is significantly hypertensive we will get a CT scan of the patient's head to make sure is not a spontaneous hemorrhage which is unlikely given the fact that she has no significant headache. She has chronic kidney disease will not get angiography studies to prevent further renal insufficiency. Overall she complains of nothing at the moment and has a normal and nonfocal exam aside from nausea and vomiting. Reassessment after Zofran and Ativan patient significant proved from nausea vomiting standpoint serial abdominal exams are benign blood pressure significant and flu improved without direct intervention. Labs essentially unremarkable she does have chronic kidney disease creatinine is actually better than her baseline at no other significant abnormalities. She is tolerating p.o. No longer vomiting. Prescription of Zofran was sent to her pharmacy. Working diagnosis is food poisoning versus viral syndrome return precautions emphasized patient discharged in improved and stable condition Critical Care Critical Care Time Critical Care Time: No
[2024-03-27 15:43] LABS: Basophils # 0.1 K/mm3 (0-0.2); Basophils % 0.7 % (0.1-2.0); Eosinophils # 0.4 K/mm3 (0.0-0.4); Eosinophils % 3.4 % (0.1-12.0); Hematocrit 32.3 % (37.0-47.0); Hemoglobin 10.4 g/dL (12.2-16.2); Lymphocytes # 3.1 K/mm3 (0.7-4.5); Lymphocytes % 28.4 % (10-50); Mean Corpuscular HGB Conc 32.1 g/dL (31.8-35.4); Mean Corpuscular Hemoglobin 30.4 pg (27.0-31.2); Mean Corpuscular Volume 94.5 fl (81-99); Mean Platelet Volume 8.3 fl (7.4-10.4); Monocytes # 0.5 K/mm3 (0.1-1.0); Monocytes % 4.8 % (1.7-9.3); Neutrophils # 6.7 K/mm3 (1.8-7.8); Neutrophils % 62.7 % (37.0-80.0); Platelet Count 325 K/mm3 (142-424); Red Blood Count 3.41 M/mm3 (4.20-5.40); Red Cell Distribution Width 13.7 % (11.5-17.5); White Blood Count 10.8 K/mm3 (4.8-10.8)
[2024-03-27] MEDS: ONDANSETRON 4MG/2ML VIAL 4 MG IV (15:53)
[2024-03-27] MEDS: LACTATED RINGERS 1000ML 1,000 ML 999 ML IV (15:53)
[2024-03-27 16:10] LABS: Anion Gap 10.4 mEq/L (5-15); Blood Urea Nitrogen 21 mg/dl (7-17); Carbon Dioxide 19 mmol/L (22.0-30.0); Chloride 111 mmol/L (98-107); Potassium 4.4 mmoL/L (3.5-5.1); Sodium 136 mmol/L (136-145); Troponin I < 0.02 ng/ml (0.00-0.034)
[2024-03-27 16:11] LABS: Alanine Aminotransferase 21 U/L (12-78); Albumin Level 3.9 g/dl (3.5-5.0); Albumin/Globulin Ratio 1.1 (1.1-1.8); Alkaline Phosphatase 117 U/L (38-126); Aspartate Amino Transferase 31 U/L (14-36); Bilirubin,Total 0.8 mg/dl (0.2-1.3); Calcium 8.8 mg/dl (8.4-10.2); Creatinine Clearance Estimated 25 mL/min (50-200); Estimated Glomerular Filt Rate 22 ml/min (>60); GFR (African American) 27 ML/MIN (>60); Globulin 3.4 g/dL (1.3-3.2); Glucose 292 mg/dl (74-100); Lipase 130 U/L (23-300); Total Protein,Serum 7.3 g/dl (6.3-8.2)
--- NOTE | 2024-03-27 16:17 | ECG_ITS ---
APPROVED REPORT Exam: Resting ECG HR:96 bpm ECG Measurements Heart Rate 96 AXES IA 166 P 52 QRSd 90 QRS -53 QT 345 T 92 QTc 399 Conclusion SINUS RHYTHM PATTERN CONSISTENT WITH PULMONARY DISEASE LEFT ANTERIOR FASCICULAR BLOCK [QRS AXIS <= -45, QR IN I, RS IN II] LEFT VENTRICULAR HYPERTROPHY AND ST-T CHANGE [VOLTAGE CRITERIA PLUS ST/T ABNORMALITY] POSSIBLE SEPTAL MYOCARDIAL INFARCTION , OF INDETERMINATE AGE [30 ms Q WAVE IN V1/V2] ABNORMAL ECG Electronically signed by : GEOVANNI ABDALLA, 03/28/2024 23:27:34
[2024-03-27] MEDS: LORazepam 2MG/ML VIAL 1 MG IV (17:16)
== END 2024-03-27 19:11 | disposition home or self-care (01) ==
PROVIDERS: Emergency Provider Student in an Organized Health Care Education/Training Program; PCP Physician Assistant
DX: R11.2 Nausea with vomiting, unspecified (principal); E11.65 Type 2 diabetes mellitus with hyperglycemia; I10 Essential (primary) hypertension; I44.4 Left anterior fascicular block; Z79.84 Long term (current) use of oral hypoglycemic drugs
CPT/HCPCS: 70450; 71045; 80053; 83690; 84484; 85025; 93005; 96361; 96374; 96375; 99285; J2060; J2405; J7120

== ENCOUNTER 2024-04-21 09:13 | Outpatient (CLI) | payer MEDICARE, MEDICAID, SELFPAY ==
[2024-04-21 09:21] LABS: Microscopic, Urine URINE MICROSCOPIC (MICROSCOPIC)
[2024-04-21 09:36] LABS: Hematocrit 36.4 % (37.0-47.0); Mean Corpuscular HGB Conc 30.2 g/dL (31.8-35.4); Mean Corpuscular Volume 95.9 fl (81-99); Platelet Count 377 K/mm3 (142-424); Red Blood Count 3.79 M/mm3 (4.20-5.40); Red Cell Distribution Width 13.7 % (11.5-17.5); White Blood Count 12.3 K/mm3 (4.8-10.8)
[2024-04-21 09:37] LABS: Appearance,Urine SL CLOUDY (Clear); Bilirubin,Urine Negative (Negative); Blood, Urine Negative (Negative); Color,Urine YELLOW (Yellow); Glucose,Urine (UA) Negative (Negative); Ketones,Urine Negative (Negative); Leukocyte Esterase,Urine 2+ (Negative); Nitrate,Urine Negative (Negative); PH,Urine 5.5 (5.0-8.5); Protein,Urine 1+ (Negative); Specific Gravity, Urine 1.025 (1.005-1.030); Urobilinogen,Urine 0.2 EU/dl (0.2)
[2024-04-21 09:50] LABS: Bacteria,Urine 1+ /lpf; WBC,Urine 20-50 #/hpf (0-3)
[2024-04-21 10:57] LABS: Albumin Level 3.9 g/dl (3.5-5.0); Chloride 113 mmol/L (98-107); Potassium 4.7 mmoL/L (3.5-5.1); Sodium 140 mmol/L (136-145)
[2024-04-21 10:59] LABS: Blood Urea Nitrogen 28 mg/dl (7-17)
[2024-04-21 11:00] LABS: Anion Gap 9.7 mEq/L (5-15); Carbon Dioxide 22 mmol/L (22.0-30.0); Estimated Glomerular Filt Rate 18 ml/min (>60); GFR (African American) 21 ML/MIN (>60); Glucose 115 mg/dl (74-100); Iron 93 ug/dL (37-170); Phosphorous 4.2 mg/dl (2.5-4.5)
[2024-04-21 11:10] LABS: Total Iron Binding Capacity 222 ug/dL (265-497)
[2024-04-21 11:33] LABS: Creatinine,Urine Random 143 mg/dL (Not Estab.)
[2024-04-21 11:35] LABS: Ferritin 285 ng/ml (11.1-264)
== END 2024-04-21 23:59 | disposition home or self-care (01) ==
LOC: LAB 09:15
PROVIDERS: PCP Physician Assistant; Visit Provider Internal Medicine Nephrology
DX: N18.4 Chronic kidney disease, stage 4 (severe) (principal); D63.1 Anemia in chronic kidney disease; N39.0 Urinary tract infection, site not specified
CPT/HCPCS: 36415; 80069; 81001; 82570; 82728; 83540; 83550; 84156; 85027; 87086; 87088; 87186

== ENCOUNTER 2024-04-23 09:51 | Outpatient (CLI) | payer MEDICARE, MEDICAID, SELFPAY | END 2024-04-23 23:59 | disposition home or self-care (01) | LOC: LAB.DROPOF 04-24 10:17 | PROVIDERS: PCP Internal Medicine; Visit Provider Internal Medicine | DX: E05.90 Thyrotoxicosis, unspecified without thyrotoxic crisis or storm (principal) | CPT/HCPCS: 84443 ==

== ENCOUNTER 2024-04-24 14:20 | Outpatient (POV) | payer MEDICARE, MEDICAID, SELFPAY | END 2024-04-24 23:59 | disposition home or self-care (01) | LOC: SC 14:20 | PROVIDERS: Visit Provider Student in an Organized Health Care Education/Training Program | DX: Z00.00 Encounter for general adult medical examination without abnormal findings (principal) ==

== ENCOUNTER 2024-06-10 11:08 | Outpatient (CLI) | payer MEDICARE, MEDICAID, SELFPAY ==
--- NOTE | 2024-06-10 11:12 | XR_ITS ---
FINAL REPORT CLINICAL HISTORY: foot pain COMPARISON: None FINDINGS: RIGHT FOOT: Three views of the right foot were obtained. There is no acute fracture or dislocation. Mild degenerative change is present. Calcaneal spurs are noted. There is no soft tissue abnormality. IMPRESSION: Mild degenerative change, with no acute bony abnormality. Authenticated and ERN
--- NOTE | 2024-06-10 11:12 | XR_ITS ---
FINAL REPORT CLINICAL HISTORY: foot pain COMPARISON: None FINDINGS: LEFT FOOT: Three views of the left foot were obtained. There is no acute fracture or dislocation. Mild degenerative change is present with calcaneal spurs. There is no soft tissue abnormality. IMPRESSION: No acute bony abnormality. Mild degenerative change, with calcaneal spurs. Authenticated and ERN
[2024-06-10 12:07] LABS: Basophils # 0.1 K/mm3 (0-0.2); Eosinophils # 0.2 K/mm3 (0.0-0.4); Eosinophils % 1.9 % (0.1-12.0); Hematocrit 30.3 % (37.0-47.0); Hemoglobin 9.9 g/dL (12.2-16.2); Lymphocytes # 2.4 K/mm3 (0.7-4.5); Lymphocytes % 24.1 % (10-50); Mean Corpuscular HGB Conc 32.5 g/dL (31.8-35.4); Mean Corpuscular Hemoglobin 29.5 pg (27.0-31.2); Mean Corpuscular Volume 90.7 fl (81-99); Mean Platelet Volume 8.8 fl (7.4-10.4); Monocytes # 0.6 K/mm3 (0.1-1.0); Monocytes % 5.9 % (1.7-9.3); Neutrophils # 6.7 K/mm3 (1.8-7.8); Neutrophils % 67.2 % (37.0-80.0); Platelet Count 314 K/mm3 (142-424); Red Blood Count 3.34 M/mm3 (4.20-5.40)
[2024-06-10 12:35] LABS: Alanine Aminotransferase 9 U/L (12-78); Albumin Level 3.5 g/dl (3.5-5.0); Albumin/Globulin Ratio 1.2 (1.1-1.8); Alkaline Phosphatase 84 U/L (38-126); Anion Gap 16.8 mEq/L (5-15); Aspartate Amino Transferase 21 U/L (14-36); Bilirubin,Total 0.8 mg/dl (0.2-1.3); Blood Urea Nitrogen 31 mg/dl (7-17); Calcium 8.6 mg/dl (8.4-10.2); Carbon Dioxide 14 mmol/L (22.0-30.0); Chloride 116 mmol/L (98-107); Estimated Glomerular Filt Rate 14 ml/min (>60); GFR (African American) 17 ML/MIN (>60); Glucose 77 mg/dl (74-100); Potassium 4.8 mmoL/L (3.5-5.1); Sodium 142 mmol/L (136-145); Total Protein,Serum 6.5 g/dl (6.3-8.2)
[2024-06-10 13:17] LABS: Creatinine,Urine Random 131 mg/dL (Not Estab.); Hemoglobin A1C 7.2 % (4.0-6.0)
== END 2024-06-10 23:59 | disposition home or self-care (01) ==
LOC: LAB 11:09
PROVIDERS: PCP Internal Medicine; Visit Provider Internal Medicine
DX: Z91.148 Patient's other noncompliance with medication regimen for other reason (principal); E11.42 Type 2 diabetes mellitus with diabetic polyneuropathy; D64.9 Anemia, unspecified; M79.671 Pain in right foot; M79.672 Pain in left foot; N18.4 Chronic kidney disease, stage 4 (severe); I10 Essential (primary) hypertension; E11.621 Type 2 diabetes mellitus with foot ulcer; L97.529 Non-pressure chronic ulcer of other part of left foot with unspecified severity; I73.9 Peripheral vascular disease, unspecified; E03.9 Hypothyroidism, unspecified; E55.9 Vitamin D deficiency, unspecified; E78.2 Mixed hyperlipidemia; I25.10 Atherosclerotic heart disease of native coronary artery without angina pectoris
CPT/HCPCS: 36415; 73630; 80053; 82043; 82570; 83036; 85025

== ENCOUNTER 2024-07-09 11:06 | Outpatient (CLI) | payer MEDICARE, MEDICAID, SELFPAY ==
--- OUTSIDE RECORDS SUMMARY | 2024-07-09 11:11 | XMS_ITS | Encounter Summary ---
Author Organization [facility] Address [address] [place] [id number] Care Team Providers Care Steeping Press Operator Name Role Phone Melvin Arceoie Sakshi LENNON Primary Care Provider [phone] Reason for Visit * Reason Comments Follow-up Encounter Details Date Type Department Care Team ([facility] st Contact Info) Description 03/08/2023 2:20 PM EDT Office Visit [facility] [address] [place] [address] Eusebio Yang MD [address] [address] CKD (chronic kidney disease) stage 4, GFR 15-29 ml/min (CMS/HCC) (Primary Dx); Anemia due to stage 3b chronic kidney disease (CMS/HCC) Social History Tobacco Use Types Packs/Day Years Used Date Smoking Tobacco: Former Passive Smoke Exposure: Past Smokeless Tobacco: Never Tobacco Cessation:Counseling Given: Not Answered Comments Unknown Sex and Gender Information Value Date Recorded Sex Assigned at Not on file Legal Sex Female 8:09 PM EDT Gender Identity Not on file Sexual Orientation Not on file documented as of this encounter Last Filed Vital Signs Vital Sign Reading Time Taken Comments Blood Pressure 156/66 03/08/2023 2:19 PM EDT Pulse 72 03/08/2023 2:19 PM EDT Temperature - - Respiratory Rate 18 03/08/2023 2:19 PM EDT Oxygen Saturation 99% 03/08/2023 2:19 PM EDT Inhaled Oxygen Concentration - - Weight 61.3 kg (135 lb 3.2 oz) 03/08/2023 2:19 P M EDT Height - - Body Mass Index - - documented in this encounter Miscellaneous Notes * Progress Notes - Eusebio Yang MD - 03/08/2023 2:20 PM EDT SUBJECTIVE Radha Anders is a 67 y.o. female who presents for follow-up of CKD 4. Reports feeling well. Still gets anxious when going to doctor's office. Denies any major changes since last visit. Denies hematuria, dysuria, abd pain, SOA, CP. OBJECTIVE Vitals: 03/08/23 1419 BP: (!) 156/66 Pulse: 72 Resp: 18 SpO2: 99% PHYSICAL EXAMINATION Gen: NAD, well-developed HEENT: AT/NC, EOMI Neck: trachea midline CV: regular rate, no edema Pulm: no increased work of breathing, symmetric chest expansion, good inspiratory/expiratory effort Neuro: alert, interactive, cortical function grossly intact LAB RESULTS Outside labs reviewed. ASSESSMENT/PLAN Assessment: - CKD 4: due to DM 2. Cr 2.0 baseline. Current Cr 2.2, BUN 22, eGFR 22. UA contaminated. - Proteinuria: mild. UPC 0.2-0.4 mg/mg. On lisinopril 2.5 mg, per pt report. - Metabolic Acidosis: sCO2 21, mild. - Hyperkalemia: K improved to normal limit with patiromer - Anemia in CKD/ Iron Def Anemia: Hb 9.3 g/dL, down from last check; goal 10-12. Ferritin 20, iron sat 14%. 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 Past A1c 9.8%. Pt with poor diet. Plan/ Recs: - continue Farxiga for diabetic control - pt will need IV iron as she is quite low. Ordering injectafer for 2 doses. - continue taking patiromer. Will monitor potassium level periodically. - monitor BP. Will allow cardiology and PCP to make adjustments for now. - continue cholecalciferol 25 mcg daily RTC in 2 months Orders Placed This Encounter Procedures Creatinine, Random, Urine Standing Status: Future Standing Expiration Date: 03/08/2024 Order Specific Question: Release to patient in [facility] Answer: Immediate Protein, Random, Urine with Creatinine Standing Status: Future Standing Expiration Date: 03/08/2024 Order Specific Question: Release to patient in MyChart Answer: Immediate Urinalysis with reflex microscopic Standing Status: Future Standing Expiration Date: 03/08/2024 Order Specific Question: Release to patient in MyChart Answer: Immediate CBC W/O Differential Standing Status: Future Standing Expiration Date: 03/08/2024 Order Specific Question: Release to patient in MyChart Answer: Immediate Renal Function Panel, Plasma Standing Status: Future Standing Expiration Date: 03/08/2024 Order Specific Question: Release to patient in MyChart Answer: Immediate documented in this encounter Plan of Treatment Upcoming Encounters Date Type Department Care Team (Late st Contact Info) Description 08/22/2024 1:20 PM EST Office Visit [facility] [address] [place] [address] Dieter Interiano MD [address] [place] [phone] documented as of this encounter Visit Diagnoses Diagnosis CKD (chronic kidney disease) stage 4, GFR 15-29 ml/min (CMS/HCC)- Primary Chronic kidney disease, Stage IV (severe) Anemia due to stage 3b chronic kidney disease (CMS/HCC) documented in this encounter Additional Health Concerns Assessment Noted Time A fall risk assessment has been complete d for the patient 03/08/2023 2:24 PM EDT documented as of this encounter Care Teams Steeping Press Operator Relationship Specialty Start Date End Date Alem Arceo PA [address] [place] [address] PCP - General 12/17/20 04/23/24 documented as of this encounter
--- OUTSIDE RECORDS SUMMARY | 2024-07-09 11:11 | XMS_ITS | Encounter Summary ---
Author Organization [facility] Address [address] [place] [address] Care Team Providers Care Customs Collector Name Role Phone Alem Arceo Primary Care Provider [phone] Encounter Details Date Type Department Care Team (Latest Contact Info) Description 03/08/2023 Travel Social History Tobacco Use Types Packs/Day Years Used Date Smoking Tobacco: Former Passive Smoke Exposure: Past Smokeless Tobacco: Never Comments Unknown Sex and Gender Information Value Date Recorded Sex Assigned at Not on file Legal Sex Female 8:09 PM EDT Gender Identity Not on file Sexual Orientation Not on file documented as of this encounter Plan of Treatment Upcoming Encounters Date Type Department Care Team (Late st Contact Info) Description 08/22/2024 1:20 PM EST Office Visit [facility] [address] [place] [address] Dieter Interiano MD [address] [place] [phone] documented as of this encounter Visit Diagnoses Not on filedocumented in this encounter Additional Health Concerns Assessment Noted Time A fall risk assessment has been complete d for the patient 03/08/2023 2:24 PM EDT documented as of this encounter Care Teams Customs Collector Relationship Specialty Start Date End Date Alem Arceo PA [address] [place] [address] PCP - General 12/17/20 04/23/24 documented as of this encounter
--- OUTSIDE RECORDS SUMMARY | 2024-07-09 11:11 | XMS_ITS | Encounter Summary ---
Author Organization [facility] Address [address] [place] [address] Care Team Providers Care Hone Operator Name Role Phone Alem Arceo Primary Care Provider [phone] Encounter Details Date Type Department Care Team (Latest Contact Info) Description 12/11/2022 Travel Social History Tobacco Use Types Packs/Day [...] Description 08/22/2024 1:20 PM EST Office Visit [facility] [address] [place] [address] Dieter Interiano MD [address] [place] [phone] documented as of this encounter Visit Diagnoses Not on filedocumented in this encounter Care Teams Hone Operator Relationship Specialty Start Date End Date Alem Arceo PA [address] [place] [address] PCP - General 12/17/20 04/23/24 documented as of this encounter
--- OUTSIDE RECORDS SUMMARY | 2024-07-09 11:11 | XMS_ITS | Encounter Summary ---
Author Organization [facility] Address [address] [place] [address] Care Team Providers Care Educational Audiologist Name Role Phone Alem Arceo Primary Care Provider [phone] Encounter Details Date Type Department Care Team (Latest Contact Info) Description 04/03/2022 Travel Social History Tobacco Use Types Packs/Day Years Used Date Smoking Tobacco: Former Smokeless Tobacco: Never Comments Unknown Sex and Gender Information Value Date Recorded Sex Assigned at Not on file Legal Sex Female 8:09 PM EDT Gender Identity Not on file Sexual Orientation Not on file COVID-19 Exposure Response Date Recorded In the last 10 days, have yo u been in contact with someone who was confirmed or suspected to have Coronavirus/COVID-19? No / Unsure 04/03/2022 1:17 PM EDT documented as of this encounter Plan of Treatment Upcoming Encounters Date Type Department Care Team (Late st Contact Info) Description 08/22/2024 1:20 PM EST Office Visit [facility] [address] [place] [address] Dieter Interiano MD [address] [place] [phone] documented as of this encounter Visit Diagnoses Not on filedocumented in this encounter Care Teams Educational Audiologist Relationship Specialty Start Date End Date Alem Arceo PA [address] [place] [address] PCP - General 12/17/20 04/23/24 documented as of this encounter
--- OUTSIDE RECORDS SUMMARY | 2024-07-09 11:11 | XMS_ITS | Encounter Summary ---
Author Organization [facility] Address [address] [place] [address] Care Team Providers Care Press Tender Star Signal Name Role Phone AdisAlem SAJI Primary Care Provider [phone] Reason for Visit * Reason Comments Follow-up Encounter Details Date Type Department Care Team ([facility] st Contact Info) Description 06/09/2021 1:00 PM EDT Office Visit [facility] [address] [place] [address] Eusebio Yang MD [address] [address] Stage 3b chronic kidney disease (CMS/HCC) (Primary Dx); Hyperkalemia; Anemia due to stage 3b chronic kidney disease (CMS/HCC); Persistent proteinuria; Chronic kidney disease-mineral and bone disorder Social History Tobacco Use Types Packs/Day Years Used Date Smoking Tobacco: Former Smokeless Tobacco: Never Comments Unknown Sex and Gender Information Value Date Recorded Sex Assigned at Not on file Legal Sex Female 8:09 PM EDT Gender Identity Not on file Sexual Orientation Not on file COVID-19 Exposure Response Date Recorded In the last month, have you been in contact with someone who was confirmed or suspected to have Coronavirus / COVID-19? No / Unsure 06/09/2021 1:04 PM EDT documented as of this encounter Last Filed Vital Signs Vital Sign Reading Time Taken Comments Blood Pressure 121/64 06/09/2021 1:28 PM EDT Pulse 83 06/09/2021 1:28 PM EDT Temperature - - Respiratory Rate - - Oxygen Saturation - - Inhaled Oxygen Concentration - - Weight 61.7 kg (136 lb) 06/09/2021 1:28 PM EDT Height - - Body Mass Index - - documented in this encounter Miscellaneous Notes * Progress Notes - Eusebio Yang MD - 06/09/2021 1:00 PM EDT SUBJECTIVE Radha Anders is a 65 y.o. female who presents for follow-up of CKD 3 and hyperkalemia. Reports feeling well. States she has cut down on some potassium-rich foods but has not changed muc in diet. She has a low K diet guide. Pt denies weakness or palpitations. Denies hematuria, dysuria, abd pain, SOA, CP. OBJECTIVE Vitals: 06/09/21 1328 BP: 121/64 Pulse: 83 PHYSICAL EXAMINATION Gen: NAD, well-developed HEENT: AT/NC, EOMI, MMM Neck: trachea midline, supple Skin: warm, dry CV: RRR, no edema Pulm: no increased work of breathing, symmetric chest expansion, good inspiratory/expiratory effort GI: abd soft, ND Neuro: alert, interactive, cortical function grossly intact, CN 2-12 grossly intact LAB RESULTS Lab Results Component Value Date CREATININE 1.70 06/03/2021 BUN 20 06/03/2021 NA 136 06/03/2021 K 5.2 06/03/2021 Lab Results Component Value Date ALBUMIN 3.6 06/03/2021 Lab Results Component Value Date CALCIUM 8.9 06/03/2021 PHOS 4.3 06/03/2021 Lab Results Component Value Date WBC 9.5 05/09/2021 HGB 11.10 05/09/2021 HCT 34.4 05/09/2021 PLT 418 05/09/2021 ASSESSMENT/PLAN Assessment: - CKD 3: due to DM 2. Cr 1.6-1.7 at baseline. UA contaminated. - Proteinuria: mild. UPC 0.33 mg/mg. On lisinopril 2.5 mg daily. - Hyperkalemia: K 5.2, improved after following low K diet - Anemia in CKD: last Hb 11.1, goal 10-12. 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 Last A1c 9.8%. Pt with poor diet. ?? Plan/ Recs: - continue lisinopril 2.5 mg daily for proteinuria/ HTN - encouraged to continue reduced potassium diet - no need for Lokelma at this time. ?? See back in 6 months documented in this encounter Plan of Treatment Upcoming Encounters Date Type Department Care Team (Late st Contact Info) Description 08/22/2024 1:20 PM EST Office Visit [facility] [address] [place] [address] Dieter Interiano MD [address] [place] [address] Scheduled Orders Name Type Priority Associated Diagnoses Orde r Schedule CBC W/O Differential Lab Routine Stage 3b chronic kidney disease (CMS/HCC) Anemia due to stage 3b chronic kidney disease (CMS/HCC) Expected: 12/07/2021, Expires: 06/09/2022 documented as of this encounter Procedures Procedure Name Priority Date/Time Associated Diagnosis Comments PROTEIN / CREATININE RATIO, URINE Routine 05/09/2021 URINALYSIS WITH REFLEX MICROSCOPIC Routine 05/09/2021 CBC WITH AUTO DIFFERENTIAL Routine 05/09/2021 RENAL FUNCTION PANEL, PLASMA Routine 05/09/2021 documented in this encounter Results * Urinalysis with reflex microscopic (05/09/2021) External Urine Color yellow External Urine Appearance clear External Urine Specific [place] 1.020 External Urine pH 6.0 External Urine Protein negative External Urine Glucose 3+ External Urine Ketone negative External Urine Blood negative External Urine Bilirubin negative External Urine Urobilinogen 0.2 External Urine Leukocyte Esterase negative External Urine Nitrite negative External Urine RBC 3-5 External Urine WBC 5-10 External Urine Bacteria 1+ Urine Urine specimen obtained by clean catch procedure / Unknown 05/09/2021 us Historical Provider LAB URINE ORDERABLES Mireya l Result * Protein / creatinine ratio, urine (05/09/2021) External Urine Protein 18.0 External Creatinine Urine 55 External Urine Protein Creatinine Ratio 0.33 Urine Urine specimen obtained by clean catch procedure / Unknown 05/09/2021 [facility] Provider LAB URINE ORDERABLES Mireya l Result * Renal Function Panel, Plasma (05/09/2021) External Glucose 263 External BUN 19 External Creatinine Blood 1.40 mg/dL External Sodium 137 mmol/L External Potassium 5.7 External Chloride 107 External Carbon Dioxide 26 External Calcium (Ca) 9.6 External Phosphorus 3.6 External Albumin 3.9 External Estimated GFR 38 Blood Venous blood specimen / Unknown 05/09/2021 Result [facility] Provider LAB BLOOD ORDERABLES Mireya l Result * CBC and Differential (05/09/2021) External WBC 9.5 External Red Blood Cell (RBC) 3.74 External Hemoglobin (Hgb) 11.10 External Hematocrit (Hct) 34.4 External Platelet Count (Plt) 418 Blood Venous blood specimen / Unknown 05/09/2021 Result [facility] Provider LAB BLOOD ORDERABLES Mireya l Result documented in this encounter Visit Diagnoses Diagnosis Stage 3b chronic kidney disease (CMS/HCC)- Primary Hyperkalemia Hyperpotassemia Anemia due to stage 3b chronic kidney disease (CMS/HCC) Persistent proteinuria Chronic kidney disease-mineral and bone disorder documented in this encounter Care Teams Press Tender Star Signal Relationship Specialty Start Date End Date Alem Arceo PA [address] [place] [address] PCP - General 12/17/20 04/23/24 documented as of this encounter
--- OUTSIDE RECORDS SUMMARY | 2024-07-09 11:11 | XMS_ITS | Encounter Summary ---
Author Organization Healthcare Address [address] [place] [address] Care Team Providers Care Lead Miner Name Role Phone Alem Arceo Primary Care Provider [phone] Encounter Details Date Type Department Care Team (Latest Contact Info) Description 09/07/2022 Travel Social History Tobacco Use Types Packs/Day [...] suspected to have Coronavirus/COVID-19? No / Unsure 09/07/2022 1:21 PM EST documented as of this encounter Plan of Treatment Upcoming Encounters Date Type Department Care Team (Late st Contact Info) Description 08/22/2024 1:20 PM EST Office Visit [facility] [id number] [place] [address] Dieter Interiano MD [address] [place] [phone] documented as of this encounter Visit Diagnoses Not on filedocumented in this encounter Care Teams Lead Miner Relationship Specialty Start Date End Date Alem Arceo PA [address] [place] [address] PCP - General 12/17/20 04/23/24 documented as of this encounter
--- OUTSIDE RECORDS SUMMARY | 2024-07-09 11:11 | XMS_ITS | Encounter Summary ---
Author Organization [facility] Address [address] [place] [address] Care Team Providers Care Franchise Consultant Name Role Phone Alem Arceo Primary Care Provider Encounter Details Date Type Department Care Team (Latest Contact Info) Description 03/07/2024 Travel Social History Tobacco Use Types Packs/Day Years Used Date Smoking Tobacco: Former Passive Smoke Exposure: Past Smokeless Tobacco: Never Alcohol Use Standard Drinks/Week Comments Never 0 (1 standard drink = 0.6 oz pur e alcohol) Comments Unknown Sex and Gender Information Value Date Recorded Sex Assigned at Not on file Legal Sex Female 8:09 PM EDT Gender Identity Not on file Sexual Orientation Not on file documented as of this encounter Plan of Treatment Upcoming Encounters Date Type Department Care Team (Late st Contact Info) Description 08/22/2024 1:20 PM EST Office Visit [facility] [address] [place] [address] Dieter Interiano MD [address] [place] [phone] documented as of this encounter Visit Diagnoses Not on filedocumented in this encounter Additional Health Concerns Assessment Noted Time A fall risk assessment has been complete d for the patient 10/15/2023 2:09 PM EDT A Body Mass Index follow-up plan has been documented for the patient 03/07/2024 11:10 AM EDT documented as of this encounter Care Teams Franchise Consultant Relationship Specialty Start Date End Date Alem Arceo PA [address] [place] [address] PCP - General 12/17/20 04/23/24 documented as of this encounter
--- OUTSIDE RECORDS SUMMARY | 2024-07-09 11:11 | XMS_ITS | Encounter Summary ---
Author Organization [facility] Address [address] [place] [address] Care Team Providers Care Patient Intake Coordinator Name Role Phone Alem Arceo Primary Care Provider [phone] Encounter Details Date Type Department Care Team (Latest Contact Info) Description 05/15/2022 Travel Social History Tobacco Use Types Packs/Day [...] suspected to have Coronavirus/COVID-19? No / Unsure 05/15/2022 1:46 PM EDT documented as of this encounter Plan of Treatment Upcoming Encounters Date Type Department Care Team (Late st Contact Info) Description 08/22/2024 1:20 PM EST Office Visit [facility] [address] [place] [address] Dieter Interiano MD [address] [place] [phone] documented as of this encounter Visit Diagnoses Not on filedocumented in this encounter Care Teams Patient Intake Coordinator Relationship Specialty Start Date End Date Alem Arceo PA [address] [place] [address] PCP - General 12/17/20 04/23/24 documented as of this encounter
--- OUTSIDE RECORDS SUMMARY | 2024-07-09 11:11 | XMS_ITS | Encounter Summary ---
Author Organization [facility] Address [address] [place] [address] Care Team Providers Care Analysis Lead Name Role Phone Alem Arceo Primary Care Provider [phone] Encounter Details Date Type Department Care Team (Latest Contact Info) Description 05/14/2023 Travel Social History Tobacco Use Types Packs/Day [...] Description 08/22/2024 1:20 PM EST Office Visit [facility] [address] [place] [address] Dieter Interiano MD [address] [place] [phone] documented as of this encounter Visit Diagnoses Not on filedocumented in this encounter Additional Health Concerns Assessment Noted Time A fall risk assessment has been complete d for the patient 05/14/2023 4:02 PM EDT documented as of this encounter Care Teams Analysis Lead Relationship Specialty Start Date End Date Alem Arceo PA [address] [place] [address] PCP - General 12/17/20 04/23/24 documented as of this encounter
--- OUTSIDE RECORDS SUMMARY | 2024-07-09 11:11 | XMS_ITS | Encounter Summary ---
Author Organization [facility] Address [address] [place] [address] Care Team Providers Care Field Sales Representative Name Role Phone AdisAlem SAJI Primary Care Provider [phone] Encounter Details Date Type Department Care Team (Late Contact Info) Description 05/20/2021 Orders Only [facility] [address] [place] [address] Zaynab So Stage 3b chronic kidney disease (CMS/HCC) (Primary Dx); Hyperkalemia Social History Tobacco Use Types Packs/Day Years Used Date Smoking Tobacco: Former Smokeless Tobacco: Never Comments Unknown Sex and Gender Information Value Date Recorded Sex Assigned at Not on file Legal Sex Female 8:09 PM EDT Gender Identity Not on file Sexual Orientation Not on file documented as of this encounter Plan of Treatment Upcoming Encounters Date Type Department Care Team (Late Contact Info) Description 08/22/2024 1:20 PM EST Office Visit [facility] [address] [address] Dieter Interiano MD [address] [place] [phone] documented as of this encounter Procedures Procedure Name Priority Date/Time Associated Diagnosis Comments RENAL FUNCTION PANEL, PLASMA Routine 06/03/2021 Stage 3b chronic kidney disease (CMS/HCC) Hyperkalemia documented in this encounter Results * Renal Function Panel, Plasma (06/03/2021) External Glucose 226 EXTERNAL LAB External BUN 20 EXTERNAL LAB External Creatinine Blood 1.70 mg/dL EXTERNAL LAB External Sodium 136 mmol/L EXTERNAL LAB External Potassium 5.2 EXTERNAL LAB External Chloride 103 EXTERNAL LAB External Carbon Dioxide 24 EXTERNAL LAB External Calcium (Ca) 8.9 EXTERNAL LAB External Phosphorus 4.3 EXTERNAL LAB External Albumin 3.6 EXTERNAL LAB External Estimated GFR 30 EXTERNAL LAB Blood Venous blood specimen / Unknown 06/03/2021 us Eusebio Yang MD LAB BLOOD ORDERABLES Fin al Result EXTERNAL LAB documented in this encounter Visit Diagnoses Diagnosis Stage 3b chronic kidney disease (CMS/HCC)- Primary Hyperkalemia Hyperpotassemia documented in this encounter Care Teams Field Sales Representative Relationship Specialty Start Date End Date Alem Arceo PA [address] [place] [address] PCP - General 12/17/20 04/23/24 documented as of this encounter
--- OUTSIDE RECORDS SUMMARY | 2024-07-09 11:11 | XMS_ITS | Encounter Summary ---
Author Organization [facility] Address [address] [place] [address] Care Team Providers Care Block Cleaner Name Role Phone Melvin Arceowaylon Cantor SAJI Primary Care Provider [phone] Reason for Visit * Reason Comments Follow-up Encounter Details Date Type Department Care Team ([facility] st Contact Info) Description 01/05/2022 1:40 PM EDT Office Visit [facility] [address] [place] [address] Eusebio Yang MD [address] [address] Chronic kidney disease, stage 3b (CMS/HCC) (Primary Dx); Hyperkalemia; Anemia due to stage 3b chronic kidney disease (CMS/HCC); Persistent proteinuria; Type 2 diabetes mellitus with stage 3b chronic kidney disease, without long-term current use of insulin (CMS/HCC) Social History Tobacco Use Types Packs/Day [...] suspected to have Coronavirus/COVID-19? No / Unsure 01/05/2022 1:29 PM EDT documented as of this encounter Last Filed Vital Signs Vital Sign Reading Time Taken Comments Blood Pressure 119/49 01/05/2022 1:41 PM EDT Pulse 68 01/05/2022 1:41 PM EDT Temperature - - Respiratory Rate - - Oxygen Saturation - - Inhaled Oxygen Concentration - - Weight 62 kg (136 lb 9.6 oz) 01/05/2022 1:41 PM EDT Height - - Body Mass Index - - documented in this encounter Miscellaneous Notes * Progress Notes - Tomas Yang MD - 01/05/2022 1:40 PM EDT SUBJECTIVE Radha Anders is a 66 y.o. female who presents for follow-up of CKD 3 and hyperkalemia. Reports feeling well. Denies any weakness, muscle aches. Not following low potassium diet at all times. Reports access to information, other than what we have given her, is limited. Does not know latest A1c. BP controlled. Denies hematuria, dysuria, abd pain, SOA, CP. OBJECTIVE Vitals: 01/05/22 1341 BP: (!) 119/49 Pulse: 68 PHYSICAL EXAMINATION Gen: NAD, well-developed HEENT: AT/NC, EOMI, wearing mask Neck: trachea midline, supple Skin: warm, dry CV: RRR, no edema Pulm: no increased work of breathing, symmetric chest expansion, good inspiratory/expiratory effort GI: abd soft, ND Neuro: alert, interactive, cortical function grossly intact LAB RESULTS Outside labs reviewed ASSESSMENT/PLAN Assessment: - CKD 3: due to DM 2. Cr 1.6-1.7??at baseline.?? Cr jumped to 2.3, BUN 27, eGFR??21 ml/min/1.73m2. Possible pt may be CKD 4 if consistent on next lab work. - Proteinuria: mild. UPC 0.24??mg/mg. ??On lisinopril 2.5 mg daily. - Hyperkalemia:?K 5.8, pt with ongoing hyperkalemia issues. Does not have access to internet or smart phone data for information on low potassium diet. Still has low K handout. - Anemia in CKD: Hb 9.6 g/dL, down from last check; goal 10-12. 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 Last A1c 9.8%. Pt with poor diet. ?? Plan/ Recs: - continue lisinopril 2.5 mg daily for proteinuria/ HTN - will start patiromer 8.4g daily as her insurance does not appear to coverl Lokelma 10 g daily. Will monitor potassium levels and adjust as needed - encouraged to follow low potassium handout See back in 2 months documented in this encounter Plan of Treatment Upcoming Encounters Date Type Department Care Team (Late st Contact Info) Description 08/22/2024 1:20 PM EST Office Visit [facility] [address] [place] [address] Dieter Interiano MD [address] [place] [phone] Scheduled Orders Name Type Priority Associated Diagnoses Orde r Schedule Renal Function Panel, Plasma Lab Routine Chronic kidney disease, stage 3b (CMS/HCC) 1 Occurrences starting 01/05/2022 until 07/07/2022 CBC W/O Differential Lab Routine Chronic kidney disease, stage 3b (CMS/HCC) 1 Occurrences starting 01/05/2022 until 07/07/2022 documented as of this encounter Visit Diagnoses Diagnosis Chronic kidney disease, stage 3b (CMS/HCC)- Primary Hyperkalemia Hyperpotassemia Anemia due to stage 3b chronic kidney disease (CMS/HCC) Persistent proteinuria Type 2 diabetes mellitus with stage 3b chronic kidney disease, without long-term current use of insulin (CMS/HCC) documented in this encounter Care Teams Block Cleaner Relationship Specialty Start Date End Date Alem Arceo PA [address] [place] [address] PCP - General 12/17/20 04/23/24 documented as of this encounter
--- OUTSIDE RECORDS SUMMARY | 2024-07-09 11:11 | XMS_ITS | Encounter Summary ---
Author Organization Healthcare Address [address] [place] [address] Care Team Providers Care Eye Clinic Manager Name Role Phone AdisAlem SAJI Primary Care Provider [phone] Reason for Visit * Reason Comments Follow-up Encounter Details Date Type Department Care Team ([facility] st Contact Info) Description 03/07/2024 10:20 AM EDT Office Visit [facility] [address] [place] [address] Eusebio Yang MD [address] [address] CKD (chronic kidney disease) stage [...] Sign Reading Time Taken Comments Blood Pressure 147/70 03/07/2024 10:45 AM EDT Pulse 71 03/07/2024 10:45 AM EDT Temperature - - Respiratory Rate - - Oxygen Saturation 100% 03/07/2024 10:45 AM EDT Inhaled Oxygen Concentration - - Weight 60.3 kg (133 lb) 03/07/2024 10:45 AM EDT Height - - Body Mass Index - - documented in this encounter Miscellaneous Notes * Progress Notes - Eusebio Yang MD - 03/07/2024 10:20 AM EDT SUBJECTIVE Radha Anders is a 68 y.o. female who presents for follow-up of CKD 4. Reports she developed hematemesis in the past month. Underwent EGD but does not know the diagnosis.Currently, reports feeling well. Denies hematuria, dysuria, abd pain, SOA, CP. OBJECTIVE Vitals: 03/07/24 1045 BP: (!) 147/70 Pulse: 71 SpO2: 100% PHYSICAL EXAMINATION Gen: NAD, well-developed HEENT: AT/NC Neck: trachea midline CV: RRR Pulm: no increased work of breathing, symmetric chest expansion, good inspiratory/expiratory effort Neuro: alert, interactive, cortical function grossly intact LAB RESULTS Outside labs reviewed. ASSESSMENT/PLAN Assessment: - CKD 4: due to DM 2. Cr 2.0-2.5 baseline. Current Cr 3.0, BUN 36, eGFR 16-22. UA contaminated. - Elevated BP: pt needs to check BP at home - Proteinuria: mild. UPC 0.2-0.5 mg/mg. On lisinopril 2.5 mg, per pt report. - Metabolic Acidosis: sCO2 18, stable. Pt is more hyperchloremic on latest labs. - Hyperkalemia: K improved to normal limit with patiromer - Anemia in CKD/ Iron Def Anemia: Hb 9.8 g/dL. Likely dropped due to hematemesis. On PO iron. - CKD-MBD/ Mild Hyperphosphatemia: PTH 100, vit D25OH 38 which has improved since starting cholecalciferol. Phos 5.1. Latest vit D level pending. - DM 2: uncontrolled. Past A1c 9.8%. Pt with poor diet. Plan/ Recs: - continue Farxiga for renoprotection over long-term - continue Na bicarb 650 mg BID - continue ferrous sulfate daily. Will check iron studies at next visit. - monitor BP. Encouraged to get home BP monitiring - continue cholecalciferol 25 mcg daily. Vit D level pending. RTC in 1 month to set up with sister Orders Placed This Encounter Procedures Iron & Total Iron Binding Capacity, Plasma (Includes Transferrin) Standing Status: Future Standing Expiration Date: 09/07/2025 Order Specific Question: Release to patient in [facility] Answer: Immediate Ferritin, Serum Standing Status: Future Standing Expiration Date: 09/07/2025 Order Specific Question: Release to patient in [facility] Answer: Immediate Creatinine, Random, Urine Standing Status: Future Standing Expiration Date: 09/07/2025 Order Specific Question: Release to patient in [facility] Answer: Immediate Protein, Random, Urine with Creatinine Standing Status: Future Standing Expiration Date: 09/07/2025 Order Specific Question: Release to patient in [facility] Answer: Immediate Urinalysis with reflex microscopic (Culture NOT Included) Standing Status: Future Standing Expiration Date: 09/07/2025 Order Specific Question: Release to patient in [facility] Answer: Immediate CBC W/O Differential Standing Status: Future Standing Expiration Date: 09/07/2025 Order Specific Question: Release to patient in [facility] Answer: Immediate Renal Function Panel, Plasma Standing Status: Future Standing Expiration Date: 09/07/2025 Order Specific Question: Release to patient in [facility] Answer: Immediate Note to Patient: The Cure Act makes medical noted like these available to patients in the interest of transparency. However, be advised this is a medical document. It is intended as peerto peer communication. It is written in medical language and may contain abbreviations or verbiage that are unfamiliar. It may appear blunt or direct. Medical documents are intended to carry relevantinformation, facts as evident, and the clinical opinion of the physician documented in this encounter Plan of Treatment Upcoming Encounters Date Type Department Care Team (Late st Contact Info) Description 08/22/2024 1:20 PM EST Office Visit [facility] [address] [place] [address] Dieter Interiano MD [address] [place] [phone] Scheduled Orders Name Type Priority Associated Diagnoses Orde r Schedule Iron & Total Iron Binding Capacity, Plasma (Includes Transferrin) Lab Routine CKD (chronic kidney disease) stage 4, GFR 15-29 ml/min (CMS/HCC) Anemia due to stage 3b chronic kidney disease (CMS/HCC) Expected: 03/07/2024 (Approximate), Expires: 09/07/2025 Ferritin, Serum Lab Routine CKD (chronic kidney disease) stage 4, GFR 15-29 ml/min ([facility]) Anemia due to stage 3b chronic kidney disease (CMS/HCC) Expected: 03/07/2024 (Approximate), Expires: 09/07/2025 Creatinine, Random, Urine Lab Routine CKD (chronic kidney disease) stage 4, GFR 15-29 ml/min ([facility]/HCC) Expected: 03/07/2024 (Approximate), Expires: 09/07/2025 Protein, Random, Urine with Creatinine Lab Routine CKD (chronic kidney disease) stage 4, GFR 15-29 ml/min (CMS/HCC) Expected: 03/07/2024 (Approximate), Expires: 09/07/2025 Urinalysis with reflex microscopic (Culture NOT Included) Lab Routine CKD (chronic kidney disease) stage 4, GFR 15-29 ml/min ([facility]/HCC) Expected: 03/07/2024 (Approximate), Expires: 09/07/2025 CBC W/O Differential Lab Routine CKD (chronic kidney disease) stage 4, GFR 15-29 ml/min ([facility]) Expected: 03/07/2024 (Approximate), Expires: 09/07/2025 Renal Function Panel, Plasma Lab Routine CKD (chronic kidney disease) stage 4, GFR 15-29 ml/min ([facility]/HCC) Expected: 03/07/2024 (Approximate), Expires: 09/07/2025 documented as of this encounter Visit Diagnoses Diagnosis CKD (chronic kidney disease) stage 4, GFR 15-29 ml/min ([facility])- Primary Chronic kidney disease, Stage IV (severe) Anemia due to stage 3b chronic kidney disease ([facility]/HCC) documented in this encounter Additional Health Concerns Assessment Noted Time A fall risk assessment has been complete d for the patient 10/15/2023 2:09 PM EDT A Body Mass Index follow-up plan has been documented for the patient 03/07/2024 11:10 AM EDT documented as of this encounter Care Teams Eye Clinic Manager Relationship Specialty Start Date End Date Alem Arceo PA [address] [place] [address] PCP - General 12/17/20 04/23/24 documented as of this encounter
--- OUTSIDE RECORDS SUMMARY | 2024-07-09 11:11 | XMS_ITS | Encounter Summary ---
Author Organization [facility] Address [address] [place] [address] Care Team Providers Care Petroleum Engineering Teacher Name Role Phone AdisAlem SAJI Primary Care Provider [phone] Reason for Visit * Reason Comments Follow-up Encounter Details Date Type Department Care Team (Late st Contact Info) Description 08/09/2023 4:00 PM EST Office Visit [facility] [address] [place] [address] Eusebio Yang MD [address] [address] CKD (chronic kidney disease) stage 4, GFR 15-29 ml/min (CMS/HCC) (Primary Dx); Vitamin D deficiency Social History Tobacco Use Types Packs/Day Years [...] Sign Reading Time Taken Comments Blood Pressure 162/75 08/09/2023 4:02 PM EST Pulse 65 08/09/2023 4:02 PM EST Temperature - - Respiratory Rate 16 08/09/2023 4:02 PM EST Oxygen Saturation 100% 08/09/2023 4:02 PM EST Inhaled Oxygen Concentration - - Weight 62.1 kg (137 lb) 08/09/2023 4:02 PM EST Height - - Body Mass Index - - documented in this encounter Miscellaneous Notes * Progress Notes - Eusebio Yang MD - 08/09/2023 4:00 PM EST SUBJECTIVE Radha Anders is a 67 y.o. female who presents for follow-up of CKD 4. Reports BP is good at home but nervous every time she comes to visit. Denies any major issues sincelast visit. Adhering to her medication regimen, per her report. Denies hematuria, dysuria, abd pain, SOA, CP. OBJECTIVE Vitals: 08/09/23 1602 BP: (!) 162/75 Pulse: 65 Resp: 16 SpO2: 100% PHYSICAL EXAMINATION Gen: NAD, well-developed HEENT: AT/NC, EOMI Neck: trachea midline CV: regular rate, no edema Pulm: no increased work of breathing, symmetric chest expansion, good inspiratory/expiratory effort Neuro: alert, interactive, cortical function grossly intact LAB RESULTS Outside labs reviewed. ASSESSMENT/PLAN Assessment: - CKD 4: due to DM 2. Cr 2.0-2.2 baseline. Current Cr 2.3, BUN 33, eGFR 21-22. UA contaminated. - Elevated BP: - Proteinuria: mild. UPC 0.2-0.4 mg/mg. On lisinopril 2.5 mg, per pt report. - Metabolic Acidosis: sCO2 20, mild. - Hyperkalemia: K improved to normal limit with patiromer - Anemia in CKD/ Iron Def Anemia: Hb 10.0 g/dL s/p IV iron infusions. 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 Past A1c 9.8%. Pt with poor diet. Plan/ Recs: - continue Farxiga for diabetic control - continue Na bicarb 650 mg BID - continue ferrous sulfate daily; discussed consider BID dosing - continue taking patiromer. Will monitor potassium level periodically. - monitor BP. Will allow cardiology and PCP to make adjustments for now. - renewed cholecalciferol 25 mcg daily. Vit D level after next visit RTC in 2 months Orders Placed This Encounter Procedures Creatinine, Random, Urine Standing Status: Future Standing Expiration Date: 02/06/2025 Order Specific Question: Release to patient in [facility] Answer: Immediate Protein, Random, Urine with Creatinine Standing Status: Future Standing Expiration Date: 02/06/2025 Order Specific Question: Release to patient in [facility] Answer: Immediate Urinalysis with reflex microscopic Standing Status: Future Standing Expiration Date: 02/06/2025 Order Specific Question: [facility] Answer: Immediate CBC W/O Differential Standing Status: Future Standing Expiration Date: 02/06/2025 Order Specific Question: [facility] Answer: Immediate Renal Function Panel, Plasma Standing Status: Future Standing Expiration Date: 02/06/2025 Order Specific Question: Release to patient in My[facility] Answer: Immediate Vitamin D 25 Hydroxy Standing Status: Future Standing Expiration Date: 02/06/2025 Order Specific Question: Release to patient in My[facility] Answer: Immediate Note to Patient: The Cure [...] Description 08/22/2024 1:20 PM EST Office Visit [facility] [address] [place] [address] Dieter Interiano MD [address] [place] [phone] Scheduled Orders Name Type Priority Associated Diagnoses Orde r Schedule Creatinine, Random, Urine Lab Routine CKD (chronic kidney disease) stage 4, GFR 15-29 ml/min (CMS/HCC) Expected: 08/09/2023 (Approximate), Expires: 02/06/2025 Protein, Random, Urine with Creatinine Lab Routine CKD (chronic kidney disease) stage 4, GFR 15-29 ml/min (CMS/HCC) Expected: 08/09/2023 (Approximate), Expires: 02/06/2025 Urinalysis with reflex microscopic Lab Routine CKD (chronic kidney disease) stage 4, GFR 15-29 ml/min (CMS/HCC) Expected: 08/09/2023 (Approximate), Expires: 02/06/2025 CBC W/O Differential Lab Routine CKD (chronic kidney disease) stage 4, GFR 15-29 ml/min ([facility]) Expected: 08/09/2023 (Approximate), Expires: 02/06/2025 Renal Function Panel, Plasma Lab Routine CKD (chronic kidney disease) stage 4, GFR 15-29 ml/min ([facility]) Expected: 08/09/2023 (Approximate), Expires: 02/06/2025 Vitamin D 25 Hydroxy Lab Routine CKD (chronic kidney disease) stage 4, GFR 15-29 ml/min ([facility]) Expected: 08/09/2023 (Approximate), Expires: 02/06/2025 documented as of this encounter Visit Diagnoses Diagnosis CKD (chronic kidney disease) stage 4, GFR 15-29 ml/min ([facility])- Primary Chronic kidney disease, Stage IV (severe) Vitamin D deficiency documented in this encounter Additional Health Concerns Assessment Noted Time A fall risk assessment has been complete d for the patient 08/09/2023 4:09 PM EST A Body Mass Index follow-up plan has been documented for the patient 08/19/2023 9:07 PM EST documented as of this encounter Care Teams Petroleum Engineering Teacher Relationship Specialty Start Date End Date Alem Arceo PA [address] [place] [address] PCP - General 12/17/20 04/23/24 documented as of this encounter
--- OUTSIDE RECORDS SUMMARY | 2024-07-09 11:11 | XMS_ITS | Encounter Summary ---
Author Organization Healthcare Address [address] [place] [address] Care Team Providers Care Acquisitions Librarian Name Role Phone Melvin Arceoie Sakshi LENNON Primary Care Provider [phone] Reason for Visit * Reason Comments Follow-up Encounter Details Date Type Department Care Team (Late st Contact Info) Description 09/07/2022 2:00 PM EST Office Visit [facility] [address] [place] [address] Eusebio Yang MD [address] [address] CKD (chronic kidney disease) stage 4, GFR 15-29 ml/min (CMS/HCC) (Primary Dx); Anemia due to stage 3b chronic kidney disease (CMS/HCC); Persistent proteinuria; Chronic kidney disease-mineral and bone disorder; Hyperkalemia; Vitamin D deficiency Social History Tobacco Use Types Packs/Day Years Used Date Smoking Tobacco: Former Smokeless Tobacco: Never Tobacco Cessation:Counseling Given: Not [...] PM EST documented as of this encounter Last Filed Vital Signs Vital Sign Reading Time Taken Comments Blood Pressure 145/56 09/07/2022 1:28 PM EST Pulse 72 09/07/2022 1:28 PM EST Temperature - - Respiratory Rate - - Oxygen Saturation - - Inhaled Oxygen Concentration - - Weight 60.3 kg (133 lb) 09/07/2022 1:28 PM EST Height - - Body Mass Index - - documented in this encounter Miscellaneous Notes * Progress Notes - Tomas Yang MD - 09/07/2022 2:00 PM EST SUBJECTIVE Radha Anders is a 66 y.o. female who presents for follow-up of CKD 3. Reports feeling well. She has not been taking Veltassa due to grittiness in water. She was not aware she can take with apple sauce or pudding. Does not check BP much at home and readings have been variable. States glycemic control is ok. Denies hematuria, dysuria, abd pain, SOA, CP. OBJECTIVE Vitals: 09/07/22 1328 BP: (!) 145/56 Pulse: 72 PHYSICAL EXAMINATION Gen: NAD, well-developed, ambulates with cane HEENT: AT/NC, EOMI, MM Neck: trachea midline Skin: no rashes CV: RRR, no edema Pulm: no increased work of breathing, symmetric chest expansion, good inspiratory/expiratory effort GI: abd soft, ND Neuro: alert, interactive, cortical function grossly intact, insight poor LAB RESULTS Outside labs reviewed. ASSESSMENT/PLAN Assessment: - CKD 4: due to DM 2. Cr 2.0 baseline. UA contaminated, otherwise bland. Electrolytes ok other thanpotassium. - Proteinuria: mild. UPC 0.4 mg/mg. Off lisinopril 2.5 mg. - Hyperkalemia: K 5.9, not on patiromer - Anemia in CKD: Hb 9.9 g/dL, down from last check; goal 10-12. 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 Past A1c 9.8%. Pt with poor diet. Plan/ Recs: - continue Farxiga for diabetic control - encouraged to follow low potassium handout - Veltassa ordered and instructed to take with apple sauce, yogurt, or pudding. Recheck potassium level tomorrow or Sunday. - monitor BP. Will allow cardiology and PCP to make adjustments for now. - Rx ergocalciferol 50,000 units weekly for 12 weeks. RTC in 3 months Orders Placed This Encounter Procedures Potassium Standing Status: Future Number of Occurrences: 1 Standing Expiration Date: 03/07/2024 Order Specific Question: Release to patient in [facility] Answer: Immediate Creatinine, Random, Urine Standing Status: Future Number of Occurrences: 1 Standing Expiration Date: 09/07/2023 Order Specific Question: Release to patient in [facility] Answer: Immediate Protein, Random, Urine with Creatinine Standing Status: Future Number of Occurrences: 1 Standing Expiration Date: 09/07/2023 Order Specific Question: Release to patient in [facility] Answer: Immediate Urinalysis with reflex microscopic Standing Status: Future Number of Occurrences: 1 Standing Expiration Date: 09/07/2023 Order Specific Question: Release to patient in [facility] Answer: Immediate CBC W/O Differential Standing Status: Future Number of Occurrences: 1 Standing Expiration Date: 09/07/2023 Order Specific Question: Release to patient in [facility] Answer: Immediate Renal Function Panel, Plasma Standing Status: Future Number of Occurrences: 1 Standing Expiration Date: 09/07/2023 Order Specific Question: Release to patient in [facility] Answer: Immediate documented in this encounter Plan of Treatment Upcoming Encounters Date Type Department Care Team (Late st Contact Info) Description 08/22/2024 1:20 PM EST Office Visit [facility] [id number] [place] [address] Dieter Interiano MD [address] [place] [phone] Scheduled Orders Name Type Priority Associated Diagnoses Orde r Schedule Potassium Lab Routine Hyperkalemia Expected: 09/07/2022, Expires: 03/07/2024 Creatinine, Random, Urine Lab Routine CKD (chronic kidney disease) stage 4, GFR 15-29 ml/min (CMS/HCC) 1 Occurrences starting 09/07/2022 until 09/07/2023 Protein, Random, Urine with Creatinine Lab Routine CKD (chronic kidney disease) stage 4, GFR 15-29 ml/min (CMS/HCC) 1 Occurrences starting 09/07/2022 until 09/07/2023 Urinalysis with reflex microscopic Lab Routine CKD (chronic kidney disease) stage 4, GFR 15-29 ml/min ([facility]) 1 Occurrences starting 09/07/2022 until 09/07/2023 CBC W/O Differential Lab Routine CKD (chronic kidney disease) stage 4, GFR 15-29 ml/min ([facility]) 1 Occurrences starting 09/07/2022 until 09/07/2023 Renal Function Panel, Plasma Lab Routine CKD (chronic kidney disease) stage 4, GFR 15-29 ml/min ([facility]) 1 Occurrences starting 09/07/2022 until 09/07/2023 documented as of this encounter Visit Diagnoses Diagnosis CKD (chronic kidney disease) stage 4, GFR 15-29 ml/min ([facility])- Primary Chronic kidney disease, Stage IV (severe) Anemia due to stage 3b chronic kidney disease ([facility]) Persistent proteinuria Chronic kidney disease-mineral and bone disorder Hyperkalemia Hyperpotassemia Vitamin D deficiency documented in this encounter Care Teams Acquisitions Librarian Relationship Specialty Start Date End Date Alem Arceo PA [address] [place] [address] PCP - General 12/17/20 04/23/24 documented as of this encounter
--- OUTSIDE RECORDS SUMMARY | 2024-07-09 11:11 | XMS_ITS | Encounter Summary ---
Author Organization [facility] Address [address] [place] [address] Care Team Providers Care Systems Spec Name Role Phone Alem Arceo Primary Care Provider Encounter Details Date Type Department Care Team (Latest Contact Info) Description 08/09/2023 Travel Social History Tobacco Use Types Packs/Day [...] Description 08/22/2024 1:20 PM EST Office Visit [facility] [address] [place] [address] Dieter Interiano MD [address] [place] [phone] documented as of this encounter Visit Diagnoses Not on filedocumented in this encounter Additional Health Concerns Assessment Noted Time A fall risk assessment has been complete d for the patient 08/09/2023 4:09 PM EST A Body Mass Index follow-up plan has been documented for the patient 08/19/2023 9:07 PM EST documented as of this encounter Care Teams Systems Spec Relationship Specialty Start Date End Date Alem Arceo PA [address] [place] [address] PCP - General 12/17/20 04/23/24 documented as of this encounter
--- OUTSIDE RECORDS SUMMARY | 2024-07-09 11:11 | XMS_ITS | Encounter Summary ---
Author Organization [facility] Address [address] [place] [address] Care Team Providers Care Electromechanical Inspector Name Role Phone Alem Arceo Primary Care Provider [phone] Encounter Details Date Type Department Care Team (Latest Contact Info) Description 01/05/2022 Travel Social History Tobacco Use Types Packs/Day [...] Description 08/22/2024 1:20 PM EST Office Visit [facility] [address] [place] [address] Dieter Interiano MD [address] [place] [phone] documented as of this encounter Visit Diagnoses Not on filedocumented in this encounter Care Teams Electromechanical Inspector Relationship Specialty Start Date End Date Alem Arceo PA [address] [place] [address] PCP - General 12/17/20 04/23/24 documented as of this encounter
--- OUTSIDE RECORDS SUMMARY | 2024-07-09 11:11 | XMS_ITS | Encounter Summary ---
Author Organization Healthcare Address [address] [place] [address] Care Team Providers Care Sales Planning Analyst Name Role Phone Adis Alem D SAJI Primary Care Provider [phone] Reason for Visit * Reason Comments Follow-up Encounter Details Date Type Department Care Team (Late st Contact Info) Description 04/03/2022 1:20 PM EDT Office Visit [facility] [address] [place] [phone] Rehan Juan MD [address] [address] CKD (chronic kidney disease) stage 4, GFR 15-29 ml/min (CMS/HCC) (Primary Dx); Hyperkalemia; Persistent proteinuria; Renal osteodystrophy Social History Tobacco Use Types Packs/Day Years [...] Sign Reading Time Taken Comments Blood Pressure 129/52 04/03/2022 1:25 PM EDT Pulse 69 04/03/2022 1:25 PM EDT Temperature - - Respiratory Rate - - Oxygen Saturation - - Inhaled Oxygen Concentration - - Weight 58.5 kg (129 lb) 04/03/2022 1:25 PM EDT Height - - Body Mass Index - - documented in this encounter Miscellaneous Notes * Progress Notes - Rehan Juan MD - 04/03/2022 1:20 PM EDT DOMINIQUE Anders is a 66 y.o. female who presents for follow-up. Doing ok today, was in ER after fall, noted low BP Off lisinopril She is now taking Farxiga since recovering from fall Question of hypovolemia as etiology of fall On antibiotics for UTI OBJECTIVE Vitals: 04/03/22 1325 BP: 129/52 Pulse: 69 PHYSICAL EXAMINATION CONSTITUTIONAL: Conversant, well developed, NAD. EYES: No proptosis or lid-lag. EARS: Normal hearing. RESPIRATORY: Normal respiratory effort. CARDIOVASCULAR: No peripheral edema. EXTREMITIES: No edema. No cyanosis. SKIN: No rash. No lesions. No ulcers. MUSCULOSKELETAL: Normal gait and station. No digital cyanosis. NEURO: Cranial nerves II-XII grossly intact. LAB RESULTS Lab Results Component Value Date/Time CALCIUM 8.9 06/03/2021 0000 CALCIUM 9.6 05/09/2021 0000 PHOS 4.3 06/03/2021 0000 PHOS 3.6 05/09/2021 0000 CREATININE 1.70 06/03/2021 0000 CREATININE 1.40 05/09/2021 0000 EGFR 30 06/03/2021 0000 EGFR 38 05/09/2021 0000 ASSESSMENT/PLAN - CKD 4; recent JAMAR, creatinine 2.1, egfr 24 - Proteinuria: related to diabetic kidney disease - Hyperkalemia: level 5, off lisinopril, discussed low K diet again - Anemia in CKD: Hb 9.3 - CKD-MBD: PTH 111, vit D25OH 32 - DM 2: uncontrolled. ---- agree with holding lisinopril, too high risk for JAMAR episodes and hyperkalemia at this time ---- recommend to hold Farxiga, patient would certainly have chronic benefit from this therapy but risks of dehydration, brendon given recent fall, and risks of infection (now on therapy for UTI), patient is too high risk for this option RTC 05/2022 for close follow up documented in this encounter Plan of Treatment Upcoming Encounters Date Type Department Care Team (Late st Contact Info) Description 08/22/2024 1:20 PM EST Office Visit [facility] [address] [place] [address] Dieter Interiano MD [address] [place] [phone] documented as of this encounter Visit Diagnoses Diagnosis CKD (chronic kidney disease) stage 4, GFR 15-29 ml/min ([facility])- Primary Chronic kidney disease, Stage IV (severe) Hyperkalemia Hyperpotassemia Persistent proteinuria Renal osteodystrophy documented in this encounter Care Teams Sales Planning Analyst Relationship Specialty Start Date End Date Alem Arceo PA [address] [place] [address] PCP - General 12/17/20 04/23/24 documented as of this encounter
--- OUTSIDE RECORDS SUMMARY | 2024-07-09 11:11 | XMS_ITS | Encounter Summary ---
Author Organization [facility] Address [address] [place] [id number] Care Team Providers Care Tube Skiver Name Role Phone AdisAlem SAJI Primary Care Provider [phone] Reason for Visit * Reason Comments Follow-up Encounter Details Date Type Department Care Team ([facility] st Contact Info) Description 12/11/2022 1:20 PM EDT Office Visit [facility] [address] [place] [phone] Eusebio Yang MD [address] [phone] CKD (chronic kidney disease) stage 4, GFR 15-29 ml/min ([facility]/HCC) (Primary Dx); Vitamin D deficiency; Hyperkalemia; Anemia due to stage 3b chronic [...] Sign Reading Time Taken Comments Blood Pressure 123/57 12/11/2022 1:44 PM EDT Pulse 60 12/11/2022 1:44 PM EDT Temperature - - Respiratory Rate - - Oxygen Saturation - - Inhaled Oxygen Concentration - - Weight 63.5 kg (140 lb) 12/11/2022 1:43 PM EDT Height - - Body Mass Index - - documented in this encounter Miscellaneous Notes * Progress Notes - Eusebio Yang MD - 12/11/2022 1:20 PM EDT Patient identity has been confirmed using name and date of ? Yes Authorizations and Agreements/Telemedicine Consent sent and consent confirmed? Yes Patient confirms they are physically located in [place]? Yes DOMINIQUE Anders is a 67 y.o. female who presents for follow-up of CKD 4. Pt started on cephalexin for a UTI. BP has been controlled. Glucose appears controlled. Pt states she is taking lisinopril 2.5 mg daily. Denies hematuria, dysuria, abd pain, SOA, CP. OBJECTIVE Vitals: 12/11/22 1344 BP: 123/57 Pulse: 60 PHYSICAL EXAMINATION Gen: NAD, well-developed HEENT: AT/NC, EOMI Neck: trachea midline CV: regular rate Pulm: no increased work of breathing, symmetric chest expansion, good inspiratory/expiratory effort Neuro: alert, interactive, cortical function grossly intact LAB RESULTS Outside labs reviewed. ASSESSMENT/PLAN Assessment: - CKD 4: due to DM 2. Cr 2.0 baseline. Current Cr 2.4, BUN 23, eGFR 20. UA bland. - Proteinuria: mild. UPC 0.24-0.4 mg/mg. On lisinopril 2.5 mg, per pt report. - Metabolic Acidosis: sCO2 19, mild. - Hyperkalemia: K improved to normal limit at this time. - Anemia in CKD: Hb 9.4 g/dL, down from last check; goal 10-12. 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 Past A1c 9.8%. Pt with poor diet. Plan/ Recs: - continue Farxiga for diabetic control - will check TIBC, ferritin at next visit - continue taking patiromer. Will monitor potassium level periodically. - monitor BP. Will allow cardiology and PCP to make adjustments for now. - Rx cholecalciferol 25 mcg daily RTC in 2-3 months Visit Type Telecare via online digital audio and video Patient Location [facility] Provider Location Provider's Home Total Time 34 minutes Orders Placed This Encounter Procedures Creatinine, Random, Urine Standing Status: Future Number of Occurrences: 1 Standing Expiration Date: 12/12/2023 Order Specific Question: Release to patient in [facility] Answer: Immediate Protein, Random, Urine with Creatinine Standing Status: Future Number of Occurrences: 1 Standing Expiration Date: 12/12/2023 Order Specific Question: Release to patient in [facility] Answer: Immediate Urinalysis with reflex microscopic Standing Status: Future Number of Occurrences: 1 Standing Expiration Date: 12/12/2023 Order Specific Question: Release to patient in [facility] Answer: Immediate CBC W/O Differential Standing Status: Future Number of Occurrences: 1 Standing Expiration Date: 12/12/2023 Order Specific Question: Release to patient in [facility] Answer: Immediate Renal Function Panel, Plasma Standing Status: Future Number of Occurrences: 1 Standing Expiration Date: 12/12/2023 Order Specific Question: Release to patient in [facility] Answer: Immediate Vitamin D 25 Hydroxy Standing Status: Future Standing Expiration Date: 06/13/2024 Order Specific Question: Release to patient in [facility] Answer: Immediate Iron & Total Iron Binding Capacity, Plasma (Includes Transferrin) Standing Status: Future Number of Occurrences: 1 Standing Expiration Date: 12/12/2023 Order Specific Question: Release to patient in [facility] Answer: Immediate Ferritin, Serum Standing Status: Future Number of Occurrences: 1 Standing Expiration Date: 12/12/2023 Order Specific Question: Release to patient in [facility] Answer: Immediate documented in this encounter Plan of Treatment Upcoming Encounters Date Type Department Care Team (Late st Contact Info) Description 08/22/2024 1:20 PM EST Office Visit [facility] [address] [place] [phone] Dieter Interiano MD [address] [place] [phone] Scheduled Orders Name Type Priority Associated Diagnoses Orde r Schedule Creatinine, Random, Urine Lab Routine CKD (chronic kidney disease) stage 4, GFR 15-29 ml/min (CMS/HCC) 1 Occurrences starting 12/11/2022 until 12/12/2023 Protein, Random, Urine with Creatinine Lab Routine CKD (chronic kidney disease) stage 4, GFR 15-29 ml/min (CMS/HCC) 1 Occurrences starting 12/11/2022 until 12/12/2023 Urinalysis with reflex microscopic Lab Routine CKD (chronic kidney disease) stage 4, GFR 15-29 ml/min ([facility]) 1 Occurrences starting 12/11/2022 until 12/12/2023 CBC W/O Differential Lab Routine CKD (chronic kidney disease) stage 4, GFR 15-29 ml/min ([facility]) 1 Occurrences starting 12/11/2022 until 12/12/2023 Renal Function Panel, Plasma Lab Routine CKD (chronic kidney disease) stage 4, GFR 15-29 ml/min ([facility]) 1 Occurrences starting 12/11/2022 until 12/12/2023 Iron & Total Iron Binding Capacity, Plasma (Includes Transferrin) Lab Routine Anemia due to stage 3b chronic kidney disease ([facility]/HCC) 1 Occurrences starting 12/11/2022 until 12/12/2023 Ferritin, Serum Lab Routine Anemia due to stage 3b chronic kidney disease ([facility]/HCC) 1 Occurrences starting 12/11/2022 until 12/12/2023 documented as of this encounter Visit Diagnoses Diagnosis CKD (chronic kidney disease) stage 4, GFR 15-29 ml/min ([facility])- Primary Chronic kidney disease, Stage IV (severe) Vitamin D deficiency Hyperkalemia Hyperpotassemia Anemia due to stage 3b chronic kidney disease ([facility]/HCC) documented in this encounter Care Teams Tube Skiver Relationship Specialty Start Date End Date Alem Arceo PA [address] [place] [address] PCP - General 12/17/20 04/23/24 documented as of this encounter
--- OUTSIDE RECORDS SUMMARY | 2024-07-09 11:11 | XMS_ITS | Clinical Summary ---
Author Organization [facility] Address [address] [id number] Care Team Providers Care Trust Officer Name Role Phone Maldonado Parker DO Primary Care Provider [phone] Allergies No known active allergies Medications Multiple Vitamins-Mineral s (PRESERVISION AREDS 2+MULTI VIT PO) 1 Active atorvastatin (Lipitor) 40 MG tablet TAKE 1 TABLET AT BEDTIME. 1 Active glipiZIDE XL (Glucotrol XL) 10 MG 24 hr tablet Take 1 tablet (10 mg) by mouth 1 (one) time each day. 1 Active linaGLIPtin (Tradjenta) 5 MG tablet Take 1 tablet (5 mg) by mouth 1 (one) time each day. Active metoprolol succinate XL (Toprol-XL) 100 MG 24 hr tablet Take 1 tablet (100 mg) by mouth 1 (one) time each day. 3 Active EQ Aspirin Adult Low Dose 81 MG EC tablet TAKE 1 TABLET BY MOUTH ONCE DAILY FOR BLOOD THINNER 3 Active ergocalciferol 1.25 MG (56843 UT) capsule Take 1 capsule (50,000 Units) by mouth 1 (one) time per week. 3 Active diphenoxylate-at ropine (Lomotil) 2.5-0.025 MG tablet TAKE 1 TABLET BY MOUTH EVERY 8 HOURS NEEDED FOR DIARRHEA 3 Active levothyroxine (Synthroid, Levoxyl) 50 MCG tablet Take 1 tablet (50 mcg) by mouth 1 (one) time each day. 3 Active nitroglycerin (Nitrostat) 0.3 MG SL tablet DISSOLVE ONE TABLET UNDER THE TONGUE EVERY 5 MINUTES NEEDED FOR CHEST PAIN. DO NOT EXCEED A TOTAL OF 3 DOSES IN 15 MINUTES 4 Active cholecalciferol (Vitamin D-3) 25 MCG (1000 UT) tabletIndication s:Vitamin D deficiency Take 1 tablet (1,000 Units) by mouth 1 (one) time each day. 90 tablet 3 4 08/08/19 25 Active famotidine (Pepcid) 40 MG tablet 1 tablet (40 mg). 4 Active hydrALAZINE (Apresoline) 25 MG tablet Take 1 tablet (25 mg) by mouth 3 (three) times a day. 4 Active isosorbide dinitrate (Isordil) 20 MG tablet 1 tablet (20 mg). 4 Active Farxiga 5 MG tabletIndication s:CKD (chronic kidney disease) stage 4, GFR 15-29 ml/min (CMS/HCC) Take 1 tablet (5 mg) by mouth 1 (one) time each day. 30 tablet 11 4 Active lisinopril 2.5 MG tabletIndication s:CKD (chronic kidney disease) stage 4, GFR 15-29 ml/min (CMS/HCC) Take 1 tablet (2.5 mg) by mouth 1 (one) time each day. 90 tablet 3 4 Active sodium bicarbonate 650 MG tabletIndication s:CKD (chronic kidney disease) stage 4, GFR 15-29 ml/min (CMS/HCC) Take 1 tablet (650 mg) by mouth 2 (two) times a day. 180 tablet 3 4 04/24/20 25 Active Active Problems Problem Noted Date Diagnosed Date Iron deficiency anemia due to chronic blood loss 04/24/2024 Mixed hyperlipidemia 04/24/2024 Type 1 diabetes mellitus wit h stage 4 chronic kidney disease 04/24/2024 CKD (chronic kidney disease) stage 4, GFR 15-29 ml/min 06/09/2021 Hyperkalemia 06/09/2021 Anemia due to stage 3b chronic kidney disease Persistent proteinuria 06/09/2021 Chronic kidney disease-mineral and bone disorder (CKD-MBD) 06/09/2021 Type 2 diabetes mellitus wit h diabetic chronic kidney disease 06/09/2021 Encounters Date Type Department Care Team Description 04/24/2024 11:40 AM EDT Office Visit [facility] [address] [place] [phone] Dieter Interiano MD CKD (chronic kidney disease) stage 4, GFR 15-29 ml/min ([facility]) (Primary Dx); Iron deficiency anemia due to chronic blood loss; Mixed hyperlipidemia; Type 2 diabetes mellitus with stage 4 chronic kidney disease, unspecified whether intermission coordinator insulin use ([facility]); Chronic kidney disease-mineral and bone disorder (CKD-MBD) 04/24/2024 Travel from Last 3 Months Immunizations Name Administration Dates Next Due Hep A, Adult 06/21/2018 Hep B, adult 03/04/2004,10/01/2003,08/12/2003 Influenza, high-dose, quadrivalent 06/08/2023, Moderna Covid-19 Vaccine 12y +, Brant Protein, Preservative free 06/08/2023 Tdap 04/17/2012 Family History Medical History Relation Name Comments No Known Problems Father No Known Problems Mother Relation Name Status Comments Father Mother Social History Tobacco Use Types Packs/Day Years Used Date Smoking Tobacco: Former Passive Smoke Exposure: Past Smokeless Tobacco: Never Tobacco Cessation:Counseling Given: Not Answered Alcohol Use Standard Drinks/Week Comments Never 0 (1 standard drink = 0.6 oz pur e alcohol) Comments Unknown Sex and Gender Information Value Date Recorded Sex Assigned at Not on file Legal Sex Female 8:09 PM EDT Gender Identity Not on file Sexual Orientation Not on file Last Filed Vital Signs Vital Sign Reading Time Taken Comments Blood Pressure 130/64 04/24/2024 11:53 AM EDT Pulse 59 04/24/2024 11:53 AM EDT Temperature 35.3 ??C (95.6 ??F) 11/04/2020 1:24 PM ED T Respiratory Rate 16 10/15/2023 2:03 PM EDT Oxygen Saturation 100% 04/24/2024 11:53 AM EDT Inhaled Oxygen Concentration - - Weight 59.9 kg (132 lb) 04/24/2024 11:53 AM EDT Height - - Body Mass Index - - Plan of Treatment Upcoming Encounters Date Type Department Care Team (Late st Contact Info) Description 08/22/2024 1:20 PM EST Office Visit [facility] [address] [place] [phone] Dieter Interiano MD [address] [place] [phone] Health Maintenance Due Date Last Done Comments [facility]-Bone Density Scan 1955 [facility]-Depression Screening 1955 [facility]-Diabetes: Hemoglobin A1C 1955 [facility]-Hepatitis C Screening 1955 [facility]-Medicare Annual Wellness (AWV) 1955 [facility]-/Child/Adol SDOH Screenings 1955 [facility]-Pneumococcal Vaccine: 65+ Years (1 of 2 - PCV) 11/20/1961 Diabetes: Dental Exam 11/20/1965 [facility]- SDOH Screenings 11/20/1973 [facility]-Adult SDOH Screenings 11/20/1973 [facility]-Zoster Vaccines (1 of 2) 11/20/1974 CT Colonography 11/20/2000 Colonoscopy 11/20/2000 FIT-DNA 11/20/2000 FIT 11/20/2000 FOBT 11/20/2000 Sigmoidoscopy 11/20/2000 [facility]-Colorectal Cancer Screening 11/20/2000 [facility]-Breast Cancer Screening 11/20/2005 [facility]-RSV Vaccine: 60+ Years or (1 - Risk 60-74 years 1-dose series) 2015 [facility]-DTaP,Tdap,and Td Vaccines (2 - Td or Tdap) 04/17/2022 04/17/2012 [id number] Vaccine ( season) 2024 06/08/2023, 06/06/2022, 07/13/2021, Additional history exists [facility]-Influenza Vaccine (#1) 2024 06/08/2023, [facility]-Hepatitis A Vaccines Aged Out 06/21/2018 No longer eligible based on patient's age to complete this topic [facility]-HIB Vaccines Aged Out No longer e ligible based on patient's age to complete this topic [facility]-HPV Vaccines Aged Out No longer e ligible based on patient's age to complete this topic [facility]-IPV Vaccines Aged Out No longer e ligible based on patient's age to complete this topic [facility]-Rotavirus Vaccines Aged Out No lo nger eligible based on patient's age to complete this topic Insurance [place]IC[place] Care Teams Trust Officer Relationship Specialty Start Date End Date Maldonado Parker DO [address] [place] [id number] PCP - General 04/24/24
--- OUTSIDE RECORDS SUMMARY | 2024-07-09 11:11 | XMS_ITS | Encounter Summary ---
Author Organization Healthcare Address [address] [place] [address] Care Team Providers Care Family Preservation Caseworker Name Role Phone Alem Arceo SAJI Primary Care Provider [phone] Encounter Details Date Type Department Care Team (Late st Contact Info) Description 10/15/2023 2:00 PM EDT Office Visit [facility] [address] [place] [phone] Eusebio Yang MD [address] [phone] CKD (chronic kidney disease) stage 4, GFR 15-29 ml/min (CMS/HCC) (Primary Dx) Social History Tobacco Use Types Packs/Day Years [...] Sign Reading Time Taken Comments Blood Pressure 166/75 10/15/2023 2:03 PM EDT Pulse 56 10/15/2023 2:03 PM EDT Temperature - - Respiratory Rate 16 10/15/2023 2:03 PM EDT Oxygen Saturation 100% 10/15/2023 2:03 PM EDT Inhaled Oxygen Concentration - - Weight 65 kg (143 lb 3.2 oz) 10/15/2023 2:03 PM EDT Height - - Body Mass Index - - documented in this encounter Miscellaneous Notes * Progress Notes - Eusebio Yang MD - 10/15/2023 2:00 PM EDT SUBJECTIVE Radha Anders is a 67 y.o. female who presents for follow-up of CKD 4. Feeling ok. Pt not likely taking sodium bicarb. Doesn't realize it was prescribed. Denies hematuria, dysuria, abd pain, SOA, CP. OBJECTIVE Vitals: 10/15/23 1403 BP: (!) 166/75 Pulse: 56 Resp: 16 SpO2: 100% PHYSICAL EXAMINATION Gen: NAD, well-developed HEENT: AT/NC Neck: trachea midline CV: RRR Pulm: no increased work of breathing, symmetric chest expansion, good inspiratory/expiratory effort Neuro: alert, interactive, cortical function grossly intact LAB RESULTS Outside labs reviewed. ASSESSMENT/PLAN Assessment: - CKD 4: due to DM 2. Cr 2.0-2.5 baseline. Current Cr 2.5, BUN 30, eGFR 19-22. UA contaminated. - Elevated BP: pt needs to check BP at home - Proteinuria: mild. UPC 0.2-0.5 mg/mg. On lisinopril 2.5 mg, per pt report. - Metabolic Acidosis: sCO2 17, worse compared to past levels. Pt is more hyperchloremic on latest labs. - Hyperkalemia: K improved to normal limit with patiromer - Anemia in CKD/ Iron Def Anemia: Hb 10.2 g/dL s/p IV iron infusions. On PO iron. - CKD-MBD/ Mild Hyperphosphatemia: PTH 100, vit D25OH 38 which has improved since starting cholecalciferol. Phos 5.2 - DM 2: uncontrolled. Past A1c 9.8%. Pt with poor diet. Plan/ Recs: - continue Farxiga for renoprotection over long-term - encouraged to filler picker Na bicarb 650 mg BID - continue ferrous sulfate daily - monitor BP. Encouraged to get home BP monitiring - continue cholecalciferol 25 mcg daily. Will check vit D level at next visit. RTC in 3 months Telehealth Statement Patient Verification Patient identity has been confirmed using name and date of ? Yes Authorizations and Agreements/Telemedicine Consent sent and consent confirmed? Yes Patient Location: Healthcare Facility Patient confirms they are physically located in [place]? Yes Provider Location: home Audio and video or audio only? Audio and video Total visit time: 18 minutes Orders Placed This Encounter Procedures Creatinine, Random, Urine Standing Status: Future Standing Expiration Date: 04/16/2025 Order Specific Question: Release to patient in [facility] Answer: Immediate Protein, Random, Urine with Creatinine Standing Status: Future Standing Expiration Date: 04/16/2025 Order Specific Question: Release to patient in [facility] Answer: Immediate Urinalysis with reflex microscopic (Culture NOT Included) Standing Status: Future Standing Expiration Date: 04/16/2025 Order Specific Question: Release to patient in [facility] Answer: Immediate CBC W/O Differential Standing Status: Future Standing Expiration Date: 04/16/2025 Order Specific Question: Release to patient in [facility] Answer: Immediate Renal Function Panel, Plasma Standing Status: Future Standing Expiration Date: 04/16/2025 Order Specific Question: Release to patient in [facility] Answer: Immediate Vitamin D 25 Hydroxy Standing Status: Future Standing Expiration Date: 04/16/2025 Order Specific Question: Release to patient in [facility] Answer: Immediate Note to Patient: The Cure [...] Description 08/22/2024 1:20 PM EST Office Visit [facility] [address] [place] [phone] Dieter Interiano MD [address] [place] [phone] Scheduled Orders Name Type Priority Associated Diagnoses Orde r Schedule Creatinine, Random, Urine Lab Routine CKD (chronic kidney disease) stage 4, GFR 15-29 ml/min ([facility]) Expected: 10/15/2023 (Approximate), Expires: 04/16/2025 Protein, Random, Urine with Creatinine Lab Routine CKD (chronic kidney disease) stage 4, GFR 15-29 ml/min ([facility]) Expected: 10/15/2023 (Approximate), Expires: 04/16/2025 Urinalysis with reflex microscopic (Culture NOT Included) Lab Routine CKD (chronic kidney disease) stage 4, GFR 15-29 ml/min ([facility]) Expected: 10/15/2023 (Approximate), Expires: 04/16/2025 CBC W/O Differential Lab Routine CKD (chronic kidney disease) stage 4, GFR 15-29 ml/min ([facility]) Expected: 10/15/2023 (Approximate), Expires: 04/16/2025 Renal Function Panel, Plasma Lab Routine CKD (chronic kidney disease) stage 4, GFR 15-29 ml/min ([facility]) Expected: 10/15/2023 (Approximate), Expires: 04/16/2025 Vitamin D 25 Hydroxy Lab Routine CKD (chronic kidney disease) stage 4, GFR 15-29 ml/min ([facility]) Expected: 10/15/2023 (Approximate), Expires: 04/16/2025 documented as of this encounter Visit Diagnoses Diagnosis CKD (chronic kidney disease) stage 4, GFR 15-29 ml/min (CMS/HCC)- Primary Chronic kidney disease, Stage IV (severe) documented in this encounter Additional Health Concerns Assessment Noted Time A fall risk assessment has been complete d for the patient 10/15/2023 2:09 PM EDT A Body Mass Index follow-up plan has been documented for the patient 10/15/2023 2:54 PM EDT documented as of this encounter Care Teams Family Preservation Caseworker Relationship Specialty Start Date End Date Alem Arceo PA [address] [place] [address] PCP - General 12/17/20 04/23/24 documented as of this encounter
--- OUTSIDE RECORDS SUMMARY | 2024-07-09 11:11 | XMS_ITS | Encounter Summary ---
Author Organization [facility] Address [address] [place] [address] Care Team Providers Care Trip Motor Operator Name Role Phone Alem Arceo SAJI Primary Care Provider [phone] Encounter Details Date Type Department Care Team (Late st Contact Info) Description 01/25/2022 Orders Only [facility] [address] [address] Zaynab So Social History Tobacco Use Types Packs/Day Years [...] PM EST documented as of this encounter Miscellaneous Notes * Addendum Note - Amanda Oconnor, PharmD - 01/25/2022 10:29 AM EDTAddended by: AMANDA OCONNOR on: 12/04/2023 09:26 AM Modules accepted: Orders documented in this encounter Plan of Treatment Upcoming Encounters Date Type Department Care Team (Late st Contact Info) Description 08/22/2024 1:20 PM EST Office Visit [facility] [address] [address] Dieter Interiano MD [address] [place] [phone] documented as of this encounter Visit Diagnoses Not on filedocumented in this encounter Care Teams Trip Motor Operator Relationship Specialty Start Date End Date Alem Arceo PA [address] [place] [address] PCP - General 12/17/20 04/23/24 documented as of this encounter
--- OUTSIDE RECORDS SUMMARY | 2024-07-09 11:11 | XMS_ITS | Encounter Summary ---
Author Organization [facility] Address [address] [place] [address] Care Team Providers Care Guide Cruise Name Role Phone Adis Alem Cantor SAJI Primary Care Provider [phone] Reason for Visit * Reason Comments Follow-up Encounter Details Date Type Department Care Team ([facility] Contact Info) Description 05/15/2022 2:00 PM EDT Office Visit [facility] [address] [place] [address] Eusebio Yang MD [address] [address] CKD (chronic kidney disease) stage 4, GFR 15-29 ml/min (CMS/HCC) (Primary Dx); Hyperkalemia; Persistent proteinuria; Anemia due to stage 3b chronic kidney [...] Sign Reading Time Taken Comments Blood Pressure 108/55 05/15/2022 2:29 PM EDT Pulse 84 05/15/2022 2:29 PM EDT Temperature - - Respiratory Rate - - Oxygen Saturation - - Inhaled Oxygen Concentration - - Weight 59.1 kg (130 lb 3.2 oz) 05/15/2022 2:29 P M EDT Height - - Body Mass Index - - documented in this encounter Miscellaneous Notes * Progress Notes - Tomas Yang MD - 05/15/2022 2:00 PM EDT Patient identity has been confirmed using name and date of ? Yes Authorizations and Agreements/Telemedicine Consent sent and consent confirmed? Yes Patient confirms they are physically located in [place]? Yes SUBJECTIVE Radha Anders is a 66 y.o. female who presents for follow-up of CKD 3. No falls since last visit. Has not been taking patiromer as it made her feel sick and stated she wanted to . Still taking Farxiga. Not on any BP meds. Denies hematuria, dysuria, abd pain, SOA, CP. OBJECTIVE Vitals: 05/15/22 1429 BP: 108/55 Pulse: 84 PHYSICAL EXAMINATION Gen: NAD, well-developed, ambulates with cane HEENT: AT/NC, EOMI, wearing mask Neck: trachea midline Skin: no rashes CV: RRR, no edema Pulm: no increased work of breathing, symmetric chest expansion, good inspiratory/expiratory effort GI: abd soft, ND Neuro: alert, interactive, cortical function grossly intact LAB RESULTS Lab Results Component Value Date WBC 9.5 05/09/2021 HGB 11.10 05/09/2021 HCT 34.4 05/09/2021 PLT 418 05/09/2021 Lab Results Component Value Date GLUCOSE 226 06/03/2021 CALCIUM 8.9 06/03/2021 NA 136 06/03/2021 K 5.2 06/03/2021 BUN 20 06/03/2021 CREATININE 1.70 06/03/2021 Lab Results Component Value Date ALBUMIN 3.6 06/03/2021 Lab Results Component Value Date CALCIUM 8.9 06/03/2021 PHOS 4.3 06/03/2021 ASSESSMENT/PLAN Assessment: - CKD 4: due to DM 2. Cr 1.6-1.7 on past baseline. Cr now 1.9 after surpassing 2 from past labs. New baseline Cr 2.0. - Proteinuria: mild. UPC 0.24 mg/mg. On lisinopril 2.5 mg daily. - Hyperkalemia: K 5.3, started on patiromer - Anemia in CKD: last Hb 9.3 g/dL, down from last check; goal 10-12. - CKD-MBD: last PTH 111, vit D25OH 32 - DM 2: uncontrolled. Last A1c 9.8%. Pt with poor diet. Plan/ Recs: - continue Farxiga for diabetic control - encouraged to follow low potassium handout - hold all BP meds other than beta-harinder - will check vit D and PTH next visit - iron studies for next visit RTC in 3 months Visit Type Telecare via online digital audio and video Patient Location [facility] Provider Location Provider's Home Total Time 17 minutes Orders Placed This Encounter Procedures PTH Intact Total Standing Status: Future Number of Occurrences: 1 Standing Expiration Date: 05/15/2023 Order Specific Question: Release to patient in [facility] Answer: Immediate Vitamin D 25 Hydroxy Standing Status: Future Number of Occurrences: 1 Standing Expiration Date: 05/15/2023 Order Specific Question: Release to patient in [facility] Answer: Immediate Creatinine, Random, Urine Standing Status: Future Number of Occurrences: 1 Standing Expiration Date: 11/13/2022 Order Specific Question: Release to patient in [facility] Answer: Immediate Protein, Random, Urine with Creatinine Standing Status: Future Number of Occurrences: 1 Standing Expiration Date: 11/13/2022 Order Specific Question: Release to patient in [facility] Answer: Immediate Urinalysis with reflex microscopic Standing Status: Future Number of Occurrences: 1 Standing Expiration Date: 08/15/2022 Order Specific Question: Release to patient in [facility] Answer: Immediate CBC W/O Differential Standing Status: Future Number of Occurrences: 1 Standing Expiration Date: 05/15/2023 Order Specific Question: Release to patient in [facility] Answer: Immediate Renal Function Panel, Plasma Standing Status: Future Number of Occurrences: 1 Standing Expiration Date: 05/15/2023 Order Specific Question: Release to patient in [facility] Answer: Immediate Iron & Total Iron Binding Capacity, Plasma (Includes Transferrin) Standing Status: Future Number of Occurrences: 1 Standing Expiration Date: 05/15/2023 Order Specific Question: Release to patient in [facility] Answer: Immediate Ferritin, Serum Standing Status: Future Number of Occurrences: 1 Standing Expiration Date: 05/15/2023 Order Specific Question: Release to patient in MyChart Answer: Immediate documented in this encounter Plan of Treatment Upcoming Encounters Date Type Department Care Team (Late st Contact Info) Description 08/22/2024 1:20 PM EST Office Visit [facility] [address] [facility] [address] [facility] [address] [place] [address] Dieter Interiano MD [address] [place] [phone] Scheduled Orders Name Type Priority Associated Diagnoses Orde r Schedule PTH Intact Total Lab Routine CKD (chronic kidney disease) stage 4, GFR 15-29 ml/min (CMS/HCC) 1 Occurrences starting 05/15/2022 until 05/15/2023 Vitamin D 25 Hydroxy Lab Routine CKD (chronic kidney disease) stage 4, GFR 15-29 ml/min (CMS/HCC) 1 Occurrences starting 05/15/2022 until 05/15/2023 Creatinine, Random, Urine Lab Routine CKD (chronic kidney disease) stage 4, GFR 15-29 ml/min (CMS/HCC) 1 Occurrences starting 05/15/2022 until 11/13/2022 Protein, Random, Urine with Creatinine Lab Routine CKD (chronic kidney disease) stage 4, GFR 15-29 ml/min (CMS/HCC) 1 Occurrences starting 05/15/2022 until 11/13/2022 Urinalysis with reflex microscopic Lab Routine CKD (chronic kidney disease) stage 4, GFR 15-29 ml/min (CMS/HCC) 1 Occurrences starting 05/15/2022 until 08/15/2022 CBC W/O Differential Lab Routine CKD (chronic kidney disease) stage 4, GFR 15-29 ml/min (CMS/HCC) 1 Occurrences starting 05/15/2022 until 05/15/2023 Renal Function Panel, Plasma Lab Routine CKD (chronic kidney disease) stage 4, GFR 15-29 ml/min (CMS/HCC) 1 Occurrences starting 05/15/2022 until 05/15/2023 Iron & Total Iron Binding Capacity, Plasma (Includes Transferrin) Lab Routine Anemia due to stage 3b chronic kidney disease (CMS/HCC) 1 Occurrences starting 05/15/2022 until 05/15/2023 Ferritin, Serum Lab Routine Anemia due to stage 3b chronic kidney disease ([facility]/HCC) 1 Occurrences starting 05/15/2022 until 05/15/2023 documented as of this encounter Visit Diagnoses Diagnosis CKD (chronic kidney disease) stage 4, GFR 15-29 ml/min (CMS/HCC)- Primary Chronic kidney disease, Stage IV (severe) Hyperkalemia Hyperpotassemia Persistent proteinuria Anemia due to stage 3b chronic kidney disease (CMS/HCC) documented in this encounter Care Teams Guide Cruise Relationship Specialty Start Date End Date Alem Arceo PA [address] [place] [address] PCP - General 12/17/20 04/23/24 documented as of this encounter
--- OUTSIDE RECORDS SUMMARY | 2024-07-09 11:11 | XMS_ITS | Encounter Summary ---
Author Organization [facility] Address [address] [place] [address] Care Team Providers Care Associate Research Scientist Name Role Phone AdisAlem SAJI Primary Care Provider [phone] Reason for Visit * Reason Comments Follow-up Encounter Details Date Type Department Care Team ([facility] st Contact Info) Description 05/14/2023 4:00 PM EDT Office Visit [facility] [address] [place] [address] Eusebio Yang MD [address] [address] CKD (chronic kidney disease) stage [...] Sign Reading Time Taken Comments Blood Pressure 111/35 05/14/2023 3:58 PM EDT Pulse 59 05/14/2023 3:58 PM EDT Temperature - - Respiratory Rate 16 05/14/2023 3:58 PM EDT Oxygen Saturation 100% 05/14/2023 3:58 PM EDT Inhaled Oxygen Concentration - - Weight 60.8 kg (134 lb) 05/14/2023 3:58 PM EDT Height - - Body Mass Index - - documented in this encounter Miscellaneous Notes * Progress Notes - Eusebio Yang MD - 05/14/2023 4:00 PM EDT Patient identity has been confirmed using name and date of ? Yes Authorizations and Agreements/Telemedicine Consent sent and consent confirmed? Yes Patient confirms they are physically located in [place]? Yes SUBJECTIVE Radha Anders is a 67 y.o. female who presents for follow-up of CKD 4. Feeling better since iron infusions. She does have moments of feeling tired at times. Denies feeling lightheaded. Denies hematuria, dysuria, abd pain, SOA, CP. OBJECTIVE Vitals: 05/14/23 1558 BP: (!) 111/35 Pulse: 59 Resp: 16 SpO2: 100% PHYSICAL EXAMINATION Gen: NAD, thin build HEENT: AT/NC, EOMI Neck: trachea midline CV: regular rate, no edema Pulm: no increased work of breathing, symmetric chest expansion, good inspiratory/expiratory effort Neuro: alert, interactive, cortical function grossly intact LAB RESULTS Outside labs reviewed. ASSESSMENT/PLAN Assessment: - CKD 4: due to DM 2. Cr 2.0-2.2 baseline. Current Cr 2.2, BUN 22, eGFR 22. UA contaminated. - Proteinuria: mild. UPC 0.2-0.4 mg/mg. On lisinopril 2.5 mg, per pt report. - Metabolic Acidosis: sCO2 20, mild. - Hyperkalemia: K improved to normal limit with patiromer - Anemia in CKD/ Iron Def Anemia: Hb 10.9 g/dL s/p IV iron infusions. 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 Past A1c 9.8%. Pt with poor diet. Plan/ Recs: - continue Farxiga for diabetic control - start Na bicarb 650 mg BID - start ferrous sulfate daily - continue taking patiromer. Will monitor potassium level periodically. - monitor BP. Will allow cardiology and PCP to make adjustments for now. - continue cholecalciferol 25 mcg daily. Vit D level after next visit RTC in 3 months Visit Type Telecare via online digital audio and video Patient Location [facility] Provider Location Provider's Home Total Time 17 minutes Orders Placed This Encounter Procedures Creatinine, Random, Urine Standing Status: Future Standing Expiration Date: 05/14/2024 Order Specific Question: Release to patient in [facility] Answer: Immediate Protein, Random, Urine with Creatinine Standing Status: Future Standing Expiration Date: 05/14/2024 Order Specific Question: Release to patient in [facility] Answer: Immediate Urinalysis with reflex microscopic Standing Status: Future Standing Expiration Date: 05/14/2024 Order Specific Question: Release to patient in [facility] Answer: Immediate CBC W/O Differential Standing Status: Future Standing Expiration Date: 05/14/2024 Order Specific Question: Release to patient in [facility] Answer: Immediate Renal Function Panel, Plasma Standing Status: Future Standing Expiration Date: 05/14/2024 Order Specific Question: Release to patient in [facility] Answer: Immediate Note to Patient: The [...] Description 08/22/2024 1:20 PM EST Office Visit [facility] [address] [place] [address] Dieter Interiano MD [address] [place] [phone] documented as of this encounter Visit [...] documented as of this encounter Care Teams Associate Research Scientist Relationship Specialty Start Date End Date Alem Arceo PA [address] [place] [address] PCP - General 12/17/20 04/23/24 documented as of this encounter
--- OUTSIDE RECORDS SUMMARY | 2024-07-09 11:11 | XMS_ITS | Encounter Summary ---
Author Organization [facility] Address [address] [place] [address] Care Team Providers Care Material Analyst Name Role Phone Alem Arceo Primary Care Provider [phone] Encounter Details Date Type Department Care Team (Latest Contact Info) Description 10/15/2023 Travel Social History Tobacco Use Types Packs/Day [...] Visit [facility] [address] [place] [address] Dieter Interiano MD [address] [place] [phone] documented as of this encounter Visit Diagnoses Not on filedocumented in this encounter Additional Health Concerns Assessment Noted Time A fall risk assessment has been complete d for the patient 10/15/2023 2:09 PM EDT A Body Mass Index follow-up plan has been documented for the patient 10/15/2023 2:54 PM EDT documented as of this encounter Care Teams Material Analyst Relationship Specialty Start Date End Date Alem Arceo PA [address] [place] [address] PCP - General 12/17/20 04/23/24 documented as of this encounter
--- OUTSIDE RECORDS SUMMARY | 2024-07-09 11:11 | XMS_ITS | Encounter Summary ---
Author Organization [facility] Address [address] [place] [address] Care Team Providers Care Trademark Attorney Name Role Phone Alem Arceo Primary Care Provider [phone] Encounter Details Date Type Department Care Team (Latest Contact Info) Description 06/09/2021 Travel Social History Tobacco Use Types Packs/Day [...] Description 08/22/2024 1:20 PM EST Office [facility] [place] [phone] [facility] [address] [place] [address] Dieter Interiano MD [address] [place] [phone] documented as of this encounter Visit Diagnoses Not on filedocumented in this encounter Care Teams Trademark Attorney Relationship Specialty Start Date End Date Alem Arceo PA [address] [place] [address] PCP - General 12/17/20 04/23/24 documented as of this encounter
--- OUTSIDE RECORDS SUMMARY | 2024-07-09 11:11 | XMS_ITS | Encounter Summary ---
Author Organization [facility] Address [address] [place] [address] Care Team Providers Care Unclaimed Property Officer Name Role Phone Maldonado Parker DO Primary Care Provider [phone] Reason for Visit * Reason Comments Follow-up Encounter Details Date Type Department Care Team ([facility] st Contact Info) Description 04/24/2024 11:40 AM EDT Office Visit [facility] [address] [facility] [address] [place] [address] Dieter Interiano MD [address] [place] [phone] CKD (chronic kidney disease) stage 4, GFR 15-29 ml/min (CMS/HCC) (Primary Dx); Iron deficiency anemia due to chronic blood loss; Mixed hyperlipidemia; Type 2 diabetes mellitus with stage 4 chronic kidney disease, unspecified whether care home insulin use (CMS/HCC); Chronic kidney disease-mineral and bone disorder (CKD-MBD) Social History Tobacco Use Types Packs/Day Years [...] Pulse 59 04/24/2024 11:53 AM EDT Temperature - - Respiratory Rate - - Oxygen Saturation 100% 04/24/2024 11:53 AM EDT Inhaled Oxygen Concentration - - Weight 59.9 kg (132 lb) 04/24/2024 11:53 AM EDT Height - - Body Mass Index - - documented in this encounter Miscellaneous Notes * Progress Notes - Dieter Interiano MD - 04/24/2024 11:40 AM EDT SUBJECTIVE Radha Anders is a 68 y.o. female who presents for follow-up of CKD 4. Reports she developed hematemesis in the past month. Continues to have vomiting spells every 4 wekson average Saw GI and was diagnosed with gastroparesis, going to try a new medicine. Otherwise feels well today. Denies hematuria, dysuria, abd pain, SOA, CP. OBJECTIVE Vitals: 04/24/24 1153 BP: 130/64 Pulse: 59 SpO2: 100% PHYSICAL EXAMINATION Gen: NAD, well-developed HEENT: AT/NC Neck: trachea midline CV: RRR Pulm: no increased work of breathing, symmetric chest expansion, good inspiratory/expiratory effort Neuro: alert, interactive, cortical function grossly intact LAB RESULTS Outside labs reviewed. ASSESSMENT/PLAN Assessment: #CKD 4: due to DM 2. STABLE Cr 2.0-2.5 baseline. Current Cr 2.7 eGFR 18'Recent fluctuations perhaps 2/2 GI illness, diarrhea, gastroparesis n/v No major issues with electrolytes Metabolic acidosis - controlled with oral bicarb supplement goal 22-24 Euvolemic on exam. Not on diuretics Anatomy - normal Urine: Mild proteinuria less than 0.5 g/day Risk factor reduction: DM control, HTN control HTN in CKD -BP at goal today <130/80 -on lisinopril 2.5mg daily Proteinuria - Proteinuria: mild. UPC 0.2-0.5 mg/mg. -On lisinopril 2.5 mg, per pt report. -on MYUT4jpt Farxiga ? Metabolic Acidosis: improved sCO2 22, stable goal 22-24 Hyperkalemia: resolved K improved to normal limit with patiromer Anemia in CKD/ Iron Def Anemia: Hb 11 g/dL - improved now on oral iron Hx of IV iron infusions CKD-MBD/ Mild Hyperphosphatemia: PTH 100, vit D25OH 38 which has improved since starting cholecalciferol. Phos 5.1. T2DM: uncontrolled. Past A1c 9.8%. -on Farxiga 5mg Plan/ Recs: - Kidney function stable. No change to medications today - continue Farxiga 5mg daily and lisinopril 5mg daily - continue Na bicarb 650 mg BID - continue ferrous sulfate daily. - monitor BP. Encouraged to get home BP monitiring - continue cholecalciferol 25 mcg daily. RTC in 3 months with sister Orders Placed This Encounter Procedures CBC W/O Differential Standing Status: Future Standing Expiration Date: 05/29/2025 Order Specific Question: Release to patient in [facility] Answer: Immediate Urinalysis with reflex microscopic (Culture NOT Included) Standing Status: Future Standing Expiration Date: 05/29/2025 Order Specific Question: Release to patient in [facility] Answer: Immediate Vitamin D 25 Hydroxy Standing Status: Future Standing Expiration Date: 05/29/2025 Order Specific Question: Release to patient in [facility] Answer: Immediate PTH Intact Total Standing Status: Future Standing Expiration Date: 05/29/2025 Order Specific Question: Release to patient in [facility] Answer: Immediate Albumin-creatinine ratio, urine, random Standing Status: Future Standing Expiration Date: 05/29/2025 Order Specific Question: Release to patient in [facility] Answer: Immediate Protein, Random, Urine with Creatinine Standing Status: Future Standing Expiration Date: 05/29/2025 Order Specific Question: Release to patient in [facility] Answer: Immediate Renal Function Panel, Plasma Standing Status: Future Standing Expiration Date: 05/29/2025 Order Specific Question: Release to patient in [facility] Answer: Immediate Problem List Items Addressed This Visit CKD (chronic kidney disease) stage 4, GFR 15-29 ml/min ([facility]) - Primary Relevant Medications Farxiga 5 MG tablet lisinopril 2.5 MG tablet sodium bicarbonate 650 MG tablet Other Relevant Orders CBC W/O Differential Urinalysis with reflex microscopic (Culture NOT Included) Vitamin D 25 Hydroxy PTH Intact Total Albumin-creatinine ratio, urine, random Protein, Random, Urine with Creatinine Renal Function Panel, Plasma Chronic kidney disease-mineral and bone disorder (CKD-MBD) Relevant Medications lisinopril 2.5 MG tablet Iron deficiency anemia due to chronic blood loss Mixed hyperlipidemia Type 1 diabetes mellitus with stage 4 chronic kidney disease ([facility]) Relevant Medications Farxiga 5 MG tablet lisinopril 2.5 MG tablet Note to Patient: The Cure Act makes [...] Description 08/22/2024 1:20 PM EST Office Visit [facility] [address] [facility] [address] [place] [address] Dieter Interiano MD [address] [place] [phone] Scheduled Orders Name Type Priority Associated Diagnoses Orde r Schedule CBC W/O Differential Lab Routine CKD (chronic kidney disease) stage 4, GFR 15-29 ml/min (CMS/HCC) Expected: 07/23/2024 (Approximate), Expires: 05/29/2025 Urinalysis with reflex microscopic (Culture NOT Included) Lab Routine CKD (chronic kidney disease) stage 4, GFR 15-29 ml/min (CMS/HCC) Expected: 07/23/2024 (Approximate), Expires: 05/29/2025 Vitamin D 25 Hydroxy Lab Routine CKD (chronic kidney disease) stage 4, GFR 15-29 ml/min (CMS/HCC) Expected: 07/23/2024 (Approximate), Expires: 05/29/2025 PTH Intact Total Lab Routine CKD (chronic kidney disease) stage 4, GFR 15-29 ml/min (CMS/HCC) Expected: 07/23/2024 (Approximate), Expires: 05/29/2025 Albumin-creatinine ratio, urine, random Lab Routine CKD (chronic kidney disease) stage 4, GFR 15-29 ml/min (CMS/HCC) Expected: 07/23/2024 (Approximate), Expires: 05/29/2025 Protein, Random, Urine with Creatinine Lab Routine CKD (chronic kidney disease) stage 4, GFR 15-29 ml/min ([facility]) Expected: 07/23/2024 (Approximate), Expires: 05/29/2025 Renal Function Panel, Plasma Lab Routine CKD (chronic kidney disease) stage 4, GFR 15-29 ml/min ([facility]/HCC) Expected: 07/23/2024 (Approximate), Expires: 05/29/2025 documented as of this encounter Visit Diagnoses Diagnosis CKD (chronic kidney disease) stage 4, GFR 15-29 ml/min ([facility])- Primary Chronic kidney disease, Stage IV (severe) Iron deficiency anemia due to chronic blood loss Iron deficiency anemia secondary to blood loss (chronic) Mixed hyperlipidemia Type 2 diabetes mellitus with stage 4 chronic kidney disease, unspecified whether care home insulin use ([facility]) Chronic kidney disease-mineral and bone disorder (CKD-MBD) documented in this encounter Additional Health Concerns Assessment Noted Time A fall risk assessment has been complete d for the patient 10/15/2023 2:09 PM EDT A Body Mass Index follow-up plan has been documented for the patient 04/24/2024 12:33 PM EDT documented as of this encounter Care Teams Unclaimed Property Officer Relationship Specialty Start Date End Date Maldonado Parker DO [address] [place] [address] PCP - General 04/24/24 documented as of this encounter
--- OUTSIDE RECORDS SUMMARY | 2024-07-09 11:11 | XMS_ITS | Encounter Summary ---
Author Organization [facility] Address [address] [place] [address] Care Team Providers Care Collection Systems Foreman Name Role Phone Maldonado Parker DO Primary Care Provider [phone] Encounter Details Date Type Department Care Team (Latest Contact Info) Description 04/24/2024 Travel Social History Tobacco Use Types Packs/Day [...] Upcoming Encounters Date Type Department Care Team ([facility] st Contact Info) Description 08/22/2024 1:20 PM EST Office Visit [facility] [address] [facility] [address], [place] [address] Dieter Interiano MD [address] [place] [phone] documented as of this encounter Visit Diagnoses Not on filedocumented in this encounter Additional Health Concerns Assessment Noted Time A fall risk assessment has been complete d for the patient 10/15/2023 2:09 PM EDT A Body Mass Index follow-up plan has been documented for the patient 04/24/2024 12:33 PM EDT documented as of this encounter Care Teams Collection Systems Foreman Relationship Specialty Start Date End Date Maldonado Parker DO [address] [place] [address] PCP - General 04/24/24 documented as of this encounter
--- OUTSIDE RECORDS SUMMARY | 2024-07-09 11:12 | XMS_ITS | Encounter Summary ---
Author Organization [facility] Address [address] [place] [address] Care Team Providers Care Bleach Mixer Name Role Phone AdisAlem SAJI Primary Care Provider [phone] Encounter Details Date Type Department Care Team ([facility] Contact Info) Description 02/01/2021 Telephone [facility] [address] [facility], [address] [place] [address] Eusebio Yang MD [address] [facility] [address] [place] [address] Social History Tobacco Use Types Packs/Day Years Used Date Smoking Tobacco: Former Comments Unknown Sex and Gender Information Value Date Recorded Sex Assigned at Not on file Legal Sex Female 8:09 PM EDT Gender Identity Not on file Sexual Orientation Not on file documented as of this encounter Miscellaneous Notes * Telephone Encounter - Gibran Garcia - 02/02/2021 12:26 PM EDT RN spoke with Dr. Yang and he is already scheduled to see her this week. He will follow up. * Telephone Encounter - Gibran Garcia - 02/01/2021 3:36 PM EDT RN received a Teams message from Felipe Washington stating that Najma Taylor from [facility] had call in a critical lab value, potassium 6.2. Call routed to Dr. Yang for further direction. documented in this encounter Plan of Treatment Upcoming Encounters Date Type Department Care Team (Late st Contact Info) Description 08/22/2024 1:20 PM EST Office Visit [facility] [address] [place] [address] Dieter Interiano MD [address] [place] [phone] documented as of this encounter Visit Diagnoses Not on filedocumented in this encounter Care Teams Bleach Mixer Relationship Specialty Start Date End Date Alem Arceo PA [address] [place] [address] PCP - General 12/17/20 04/23/24 documented as of this encounter
--- OUTSIDE RECORDS SUMMARY | 2024-07-09 11:12 | XMS_ITS | Encounter Summary ---
Author Organization [facility] Address [address] [place] [address] Care Team Providers Care Insurance Follow Up Specialist Name Role Phone Alem Arceo Primary Care Provider [phone] Encounter Details Date Type Department Care Team ([facility] Contact Info) Description 02/08/2021 Orders Only [facility] [address] [place] [address] Zaynab So Hyperkalemia (Primary Dx) Social History Tobacco Use Types [...] have Coronavirus / COVID-19? No / Unsure 02/03/2021 2:05 PM EDT documented as of this encounter Plan of Treatment Upcoming Encounters Date Type Department Care Team ([facility] Contact Info) Description 08/22/2024 1:20 PM EST Office Visit [facility] [address] [place] [address] Dieter Interiano MD [address] [place] [phone] documented as of this encounter Visit Diagnoses Diagnosis Hyperkalemia- Primary Hyperpotassemia documented in this encounter Care Teams Insurance Follow Up Specialist Relationship Specialty Start Date End Date Alem Arceo PA [address] [place] [address] PCP - General 12/17/20 04/23/24 documented as of this encounter
--- OUTSIDE RECORDS SUMMARY | 2024-07-09 11:12 | XMS_ITS | Encounter Summary ---
Author Organization [facility] Address [address] [place] [address] Care Team Providers Care Conservation Educator Name Role Phone AdisAlem SAJI Primary Care Provider [phone] Reason for Visit * Reason Comments Follow-up Encounter Details Date Type Department Care Team ([facility] st Contact Info) Description 02/03/2021 1:40 PM EDT Office Visit [facility] [address] [place] [address] Eusebio Yang MD [address] [address] Stage 3b chronic kidney disease (CMS/HCC) (Primary Dx); Hyperkalemia; Essential hypertension; Anemia due to stage 3b chronic kidney [...] Sign Reading Time Taken Comments Blood Pressure 135/64 02/03/2021 2:09 PM EDT Pulse 69 02/03/2021 2:09 PM EDT Temperature - - Respiratory Rate - - Oxygen Saturation - - Inhaled Oxygen Concentration - - Weight 63.7 kg (140 lb 6.4 oz) 02/03/2021 2:09 P M EDT Height - - Body Mass Index - - documented in this encounter Miscellaneous Notes * Progress Notes - Eusebio Yang MD - 02/03/2021 1:40 PM EDT SUBJECTIVE Radha Anders is a 65 y.o. female who presents for follow-up of CKD. Reports feeling well. She denies any muscle weakness or palpitations. She has not been following a low potassium diet. Reports eating around 3-4 bananas around time of lab draw. Also eating a lot of fried potatoes. Reports adhering to her BP meds. Denies hematuria, dysuria, abd pain, SOA, CP. OBJECTIVE Vitals: 02/03/21 1409 BP: 135/64 Pulse: 69 PHYSICAL EXAMINATION Gen: NAD, well-developed HEENT: AT/NC, EOMI, MMM Neck: trachea midline, supple Skin: warm, dry, no rashes CV: RRR, no edema Pulm: no increased work of breathing, symmetric chest expansion, good inspiratory/expiratory effort GI: abd soft, ND Neuro: alert, interactive, cortical function grossly intact, CN 2-12 grossly intact LAB RESULTS Reviewed labs with pt. ASSESSMENT/PLAN Assessment: - CKD 3: due to DM 2. Cr 1.6-1.7 at baseline. UA contaminated. - Proteinuria: mild. UPC 0.08 mg/mg. On lisinopril 2.5 mg daily. - Hyperkalemia: K 6.2, severe, may be life threatening if continues to rise. Related to high K diet. - Anemia in CKD: Hb 10.7, goal 10-12. 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 Last A1c 9.8%. Pt with poor diet. ?? Plan/ Recs: - checking potassium level today to make sure potassium is not rising. If rising, then we will needto consider acute therapy. Lokelma is a consideration, especially if diet changes fail. - given low potassium diet handout. Reinforced to keep potassium intake down - will consider repeat potassium in next 1-2 weeks if level lower but still higher than normal - continue lisinopril 2.5 mg daily for proteinuria/ HTN See back in 3 months, possibly sooner if issues with potassium documented in this encounter Plan of Treatment Upcoming Encounters Date Type Department Care Team (Late st Contact Info) Description 08/22/2024 1:20 PM EST Office Visit [facility] [address] [place] [address] Dieter Interiano MD [address] [place] [address] Scheduled Orders Name Type Priority Associated Diagnoses Orde r Schedule CBC W/O Differential Lab Routine Stage 3b chronic kidney disease (CMS/HCC) Expected: 05/06/2021, Expires: 08/06/2021 documented as of this encounter Visit Diagnoses Diagnosis Stage 3b chronic kidney disease (CMS/HCC)- Primary Hyperkalemia Hyperpotassemia Essential hypertension Unspecified essential hypertension Anemia due to stage 3b chronic kidney disease (CMS/HCC) documented in this encounter Care Teams Conservation Educator Relationship Specialty Start Date End Date Alem Arceo PA [address] [place] [address] PCP - General 12/17/20 04/23/24 documented as of this encounter
--- OUTSIDE RECORDS SUMMARY | 2024-07-09 11:12 | XMS_ITS | Encounter Summary ---
Author Organization [facility] Address [address] [place] [address] Care Team Providers Care Inter Com Servicer Name Role Phone Alem Arceo Primary Care Provider [phone] Encounter Details Date Type Department Care Team ([facility] Contact Info) Description 02/24/2021 Orders Only [facility] [address] [place] [address] Zaynab So Hyperkalemia (Primary Dx) [...] Upcoming Encounters Date Type Department Care Team ([facility] Contact Info) Description 08/22/2024 1:20 PM EST Office Visit [facility] [address] [place] [address] Dieter Interiano MD [address] [place] [phone] documented as of this encounter Visit Diagnoses Diagnosis Hyperkalemia- Primary Hyperpotassemia documented in this encounter Care Teams Inter Com Servicer Relationship Specialty Start Date End Date Alem Arceo PA [address] [place] [address] PCP - General 12/17/20 04/23/24 documented as of this encounter
--- OUTSIDE RECORDS SUMMARY | 2024-07-09 11:12 | XMS_ITS | Encounter Summary ---
Author Organization [facility] Address [address] [place] [address] Care Team Providers Care Travel Insurance Agent Name Role Phone Alem Arceo Primary Care Provider [phone] Encounter Details Date Type Department Care Team ([facility] Contact Info) Description 02/03/2021 Orders Only [facility] [address] [place] [address] Zaynab So Social History Tobacco Use [...] Description 08/22/2024 1:20 PM EST Office Visit [facility] [address] [place] [address] Dieter Interiano MD [address] [place] [phone] documented as of this encounter Visit Diagnoses Not on filedocumented in this encounter Care Teams Travel Insurance Agent Relationship Specialty Start Date End Date Alem Arceo PA [address] [place] [address] PCP - General 12/17/20 04/23/24 documented as of this encounter
--- OUTSIDE RECORDS SUMMARY | 2024-07-09 11:12 | XMS_ITS | Encounter Summary ---
Author Organization [facility] Address [address] [place] [address] Care Team Providers Care Lecturer Of Portuguese Name Role Phone Alem Arceo Primary Care Provider [phone] Encounter Details Date Type Department Care Team (Latest Contact Info) Description 02/03/2021 Travel Social History Tobacco Use Types Packs/Day [...] Description 08/22/2024 1:20 PM EST Office Visit [place] [address] [facility] [address] [place] [address] Dieter Interiano MD [address] [place] [phone] documented as of this encounter Visit Diagnoses Not on filedocumented in this encounter Care Teams Lecturer Of Portuguese Relationship Specialty Start Date End Date Alem Arceo PA [address] [place] [address] PCP - General 12/17/20 04/23/24 documented as of this encounter
[2024-07-09 12:05] LABS: Alanine Aminotransferase 21 U/L (12-78); Albumin Level 3.8 g/dl (3.5-5.0); Albumin/Globulin Ratio 1.3 (1.1-1.8); Alkaline Phosphatase 84 U/L (38-126); Anion Gap 15.2 mEq/L (5-15); Aspartate Amino Transferase 35 U/L (14-36); Bilirubin,Total 0.5 mg/dl (0.2-1.3); Blood Urea Nitrogen 36 mg/dl (7-17); Calcium 8.8 mg/dl (8.4-10.2); Carbon Dioxide 13 mmol/L (22.0-30.0); Chloride 117 mmol/L (98-107); Estimated Glomerular Filt Rate 15 ml/min (>60); GFR (African American) 18 ML/MIN (>60); Globulin 2.9 g/dL (1.3-3.2); Glucose 129 mg/dl (74-100); Potassium 5.2 mmoL/L (3.5-5.1); Sodium 140 mmol/L (136-145); Total Protein,Serum 6.7 g/dl (6.3-8.2)
[2024-07-09 12:14] LABS: Intact Parathyroid Hormone 189.6 pg/mL (7.5-53.5)
[2024-07-09 13:03] LABS: 25-OH Vitamin D, Total 28.2 ng/mL (30-100); Free T4 (Free Thyroxine) 0.76 ng/dl (0.78-2.19)
[2024-07-10 08:26] LABS: Triiodothyronine (T3) Free 2.1 pg/mL (2.0-4.4)
[2024-07-10 14:13] LABS: Thyroglobulin Level <1.0 IU/mL (0.0-0.9)
== END 2024-07-09 23:59 | disposition home or self-care (01) ==
LOC: LAB 11:08
PROVIDERS: PCP Internal Medicine; Visit Provider Internal Medicine
DX: E03.9 Hypothyroidism, unspecified (principal); E55.9 Vitamin D deficiency, unspecified; I10 Essential (primary) hypertension
CPT/HCPCS: 36415; 80053; 82306; 83970; 84439; 84443; 84481; 86800

== ENCOUNTER 2024-07-17 10:41 | Day surgery (SDC) | payer MEDICARE, MEDICAID, SELFPAY ==
[2024-07-15 11:11] VITALS: BMI 22.1
[2024-07-17] MEDS: LACTATED RINGERS 1000ML 1,000 ML 25 ML IV (11:11)
[2024-07-17 11:18] VITALS: BP 110/40; PULSE 65; RESP 18; TEMP 36.5; O2SAT 100; BMI 22.1
[2024-07-17 11:27] LABS: POC Glucose,Bedside 175 (70-110)
--- NOTE | 2024-07-17 12:51 | EXP.ANES.CKL ---
[facility] Disclaimer: The information contained in this section may have been updated after the patient was seen, as this information can be updated by other users. Medical History Abdominal pain Dyspnea CKD stage 3 due to type 2 diabetes mellitus PVD (peripheral vascular disease) Edema of left lower extremity Wound of left foot Elevated bilirubin Typical angina Hypothyroidism Hyperkalemia Type 2 diabetes mellitus with diabetic polyneuropathy, without long-term current use of insulin Diarrhea Type 2 diabetes mellitus Decreased pulses in feet Neuropathy Anxiety HLD (hyperlipidemia) Surgical History H/O tubal ligation Hx laparoscopic cholecystectomy Family History Other No significant family history Social History Smoking Status: Never smoker alcohol intake: never substance use type: denies use current occupational status: unemployed Travel in the last 8 weeks: Inside the [place] household members: significant other housing: house current occupational exposures/hazards: No caffeine: No [facility] Anesthesia Checklist Patient Identification Patient Identification: Verbal (Name & ) Structural Data Admitted From: Home Planned Operative Procedure/s: colonoscopy Consent for Planned Operative Procedure(s) Verified: Yes NPO Status Verified Time NPO: 00:00 Additional verifications Anesthesia Reactions: No Airway Assessment Mallampati Score:: Class II C-Spine Mobility Assessed: Yes TMJ Mobility Assessed: Yes Dentition: Edentulous Neurological Assessment Level of Consciousness: Awake, Alert and Appropriate Anesthesia Plan Anesthesia Risk discussed: Yes Anesthesia Plan: Verified ASA Class: III Anesthesia Type: MAC
--- NOTE | 2024-07-17 13:19 | P.HP_ITS ---
History of Present Illness *Admission Date: 07/17/24 *Reason for visit:: Diarrhea/change in bowel habits *History of present illness: Mrs. Anders is a 68-year-old female who is here for diagnostic colonoscopy secondary to diarrhea/change in bowel habits with abdominal pain. The examination is deemed medically necessary for diagnostic colonoscopy. The patient has been seen, interviewed and examined prior to the procedure by both myself and the anesthesia provider. [facility] Disclaimer: The information contained in this section may have been updated after the patient was seen, as this information can be updated by other users. Medical History (Updated 07/17/24 @ 13:21 by Vahid Jc II, MD) Abdominal pain Dyspnea CKD stage 3 due to type 2 diabetes mellitus PVD (peripheral vascular disease) Edema of left lower extremity Wound of left foot Elevated bilirubin Typical angina Hypothyroidism Hyperkalemia Type 2 diabetes mellitus with diabetic polyneuropathy, without long-term current use of insulin Diarrhea Type 2 diabetes mellitus Decreased pulses in feet Neuropathy Anxiety HLD (hyperlipidemia) Surgical History H/O tubal ligation Hx laparoscopic cholecystectomy Family History Other No significant family history Social History Smoking Status: Never smoker alcohol intake: never substance use type: denies use current occupational status: unemployed Travel in the last 8 weeks: [place] the [place] household members: significant other housing: house current occupational exposures/hazards: No caffeine: No Other Medical History Have you received the Flu Vaccine for this season: No Have you received the Pneumonia Vaccine: No Review of Systems Review of Systems Review of systems (narrative): Negative *Cardiovascular Comments: Negative *Gastrointestinal Comments: Negative *Genitourinary Comments: Negative *Musculoskeletal Comments: Negative *Neurologic Comments: Negative Meds Home Medications and Allergies Home Medications ?Medication ?Instructions ?Recorded ?Confirmed ?Type ferrous sulfate 325 mg (65 mg 325 mg PO DAILY 06/06/23 07/15/24 History iron) tablet atorvastatin 40 mg tablet 40 mg PO HS High cholesterol #90 08/02/23 07/15/24 Rx tabs diaper,brief,adult,disposable #80 ea 08/02/23 07/15/24 Rx (Veronique Bolton Briefs-Medium) metoprolol succinate 100 mg 100 mg PO DAILY blood pressure #90 08/02/23 07/15/24 Rx tablet,extended release 24 hr tabs nitroglycerin 0.3 mg sublingual 0.3 mg sublingual Q5M PRN chest 08/02/23 1 09/15/23 Rx tablet pain #25 tabs diphenoxylate-atropine 2.5 1 tab PO Q8HP PRN diarrhea 01/07/24 07/15/24 History mg-0.025 mg tablet (Lomotil) pantoprazole 40 mg tablet,delayed 40 mg PO DAILY 30 days #30 tabs 01/08/24 07/15/24 Rx release blood sugar diagnostic (FreeStyle #100 ea 01/28/24 07/15/24 Rx Lite Strips) lancets 28 gauge (FreeStyle #100 ea 01/28/24 07/15/24 Rx Lancets) dapagliflozin propanediol 5 mg 5 mg PO DAILY 05/13/24 07/15/24 History tablet (Farxiga) sodium bicarbonate 650 mg tablet 650 mg PO BID 05/13/24 07/15/24 History doxycycline hyclate 100 mg capsule 100 mg PO BID infection 14 days 06/10/24 07/15/24 Rx #28 caps mupirocin 2 % topical ointment 1 applic topical BID infection 14 06/10/24 07/15/24 Rx days #15 grams famotidine 40 mg tablet (Pepcid) 40 mg PO DAILY #90 tabs 06/11/24 07/15/24 Rx glipizide 10 mg tablet, extended 10 mg PO DAILY Diabetes #90 tabs 06/11/24 07/15/24 Rx release 24 hr hydralazine 25 mg tablet 25 mg PO TID blood pressure #90 07/01/24 07/15/24 Rx tabs cholecalciferol (vitamin D3) 25 50 mcg (2 x 25 mcg (1,000 unit)) 07/09/24 07/15/24 Rx mcg (1,000 unit) tablet PO DAILY #90 tabs levothyroxine 25 mcg capsule 25 mcg PO DAILY #30 caps 07/09/24 07/15/24 Rx New Prescriptions to Start Prescriptions: Allergies Allergy/AdvReac Type Severity Reaction Status Date / Time No Known Allergies Allergy Verified 07/17/24 11:13 Exam Data for Last 24 hours Vital signs and Labs for Last 24 Hours: Temp Pulse Resp BP Pulse Ox O2 Del Method 97.7 F 65 18 110/40 L 100 Room Air 07/17/24 11:18 07/17/24 11:18 07/17/24 11:18 07/17/24 11:18 07/17/24 11:18 07/17/24 11:18 Laboratory Results - last 24 hr 07/17/24 11:19: POC Glucose 175 H I & O for Last 24 hours: Intake & Output 07/14/24 07/15/24 07/16/24 07/17/24 23:59 23:59 23:59 23:59 Weight 129 lb 129 lb *Routine HEENT Exam Head: Present normocephalic Eye: Present EOMI and PERRL ENT: Present mucous membranes moist *Routine Neck Exam Neck: Present supple *Routine Respiratory Exam Respiratory: Present CTA bilaterally *Routine Cardiovascular Exam Cardiovascular: Present RRR *Routine Abdominal Exam Abdominal: Present soft and normoactive bowel sounds; Absent tenderness *Routine Rectal Exam Rectal:: deferred *Routine Genitalia Exam Genitalia:: deferred *Routine Extremities Exam Extremities: Absent cyanosis, clubbing or edema *Routine Skin Exam Skin: Present warm; Absent rash *Routine Neurological Exam Neurological: Present alert and oriented X3 Assessment and Plan *Assessment and plan (1) Chronic diarrhea: Status: Acute Category: Medical Code(s): K52.9 - Noninfective gastroenteritis and colitis, unspecified (2) Change in bowel habits: Status: Acute Category: Medical Code(s): R19.4 - Change in bowel habit (3) Family history of Crohn's disease: Status: Acute Category: Medical Code(s): Z83.79 - Family history of other diseases of the digestive system (4) Family history of ulcerative colitis: Status: Acute Category: Medical Code(s): Z83.79 - Family history of other diseases of the digestive system (5) Lower abdominal pain: Status: Acute Category: Medical Code(s): R10.30 - Lower abdominal pain, unspecified Plan A/P: 1. Chronic diarrhea with lower abdominal pain, change in bowel habits and family history of IBD is the preprocedural diagnosis. The patient will be anesthetized/sedated using MAC sedation. The patient has been seen and examined. Cardiac and lung assessment prior to the examination is stable. Proceed with planned diagnostic colonoscopy
[2024-07-17 13:26] VITALS: O2SAT 100
--- NOTE | 2024-07-17 13:31 | P.PCN_ITS ---
[facility] Procedure Note Date: 07/17/24 Time: 13:45 Procedure Note:: Colonoscopy Procedure Report: Colonoscopy with cold snare polypectomy and cold biopsies Endoscopist: Vahid Jc II, MD Referring physician: Maldonado Parker DO Date of Procedure: July 17, 2024 Equipment: Olympus 190 variable stiffness pediatric colonoscope Sedation: MAC sedation Indication: Mrs. Anders is a 68-year-old female with chronic diarrhea. She reports postprandial bowel urgency and frequency. She did have cholecystectomy in 1995. She does have multiple urgent bowel movements daily which are loose and watery. She has used Imodium for years and takes Lomotil once daily. She has never had a colonoscopy. She reports no family history of colon cancer. She had a sister with Crohn's disease and another sister with ulcerative colitis. The patient reports no bloating, gassiness or abdominal pain. She has had no rectal bleeding. Procedure: Prior to the procedure, a history and physical exam was performed, and patient's medications and allergies were reviewed. The risks, benefits and alternatives of the sedation and procedure were discussed with the patient. All questions were answered and informed consent was obtained. The patient was brought to the procedure room. Patient identification and proposed procedure were verified by the physician and the nurse. The patient was placed in a left lateral decubitus position and the scope was passed under direct vision. Throughout the procedu re, the patient's blood pressure, pulse, and oxygen saturations were monitored continuously. The colonoscopy was accomplished without difficulty. The patient tolerated the procedure well. Findings: On digital rectal examination there was normal rectal tone. There were no external hemorrhoids. The colonoscope was introduced through the anal canal to the rectum and advanced to the cecum. The ileocecal valve and appendiceal orifice were identified. The scope was advanced a short distance into the ileum which appeared grossly normal. The scope was then withdrawn into the colon. The cecum, ascending, transverse, descending and sigmoid colon were grossly normal. There were 2 polyps (rectosigmoid x 1 (6 mm) and rectum x 1 (10 mm)). These were both removed via cold snare polypectomy. Random biopsies were taken from the right colon to rule out microscopic colitis. There were no other mucosal abnormalities identified. Upon retroflexion within the rectum there were grade 1-2 internal hemorrhoids.The preparation was excellent throughout with [place] Preparation Score of 9. The cecal time was 13 minutes. Impression: 1. Rectal polyp 10 mm 2. Rectosigmoid polyp 6 mm Plan: I will follow-up the polyp histology and recommend repeat surveillance colonoscopy again in 3 to 5 years based upon the pathology. I will follow-up the biopsies to rule out microscopic colitis. If these are nor mal, I would recommend Colestid to be taken at bedtime for choleretic/bile acid diarrhea and FiberCon 2 tablets p.o. every morning.
[2024-07-17 13:50] VITALS: BP 79/41; PULSE 59; RESP 16; TEMP 36.1; O2SAT 99
[2024-07-17 14:00] VITALS: BP 98/50; PULSE 60; RESP 16; O2SAT 99
[2024-07-17 14:10] VITALS: BP 99/52; PULSE 69; RESP 16; O2SAT 98
[2024-07-17 14:18] VITALS: BP 120/72; PULSE 70; RESP 16; O2SAT 100
--- OUTSIDE RECORDS SUMMARY | 2024-07-22 10:16 | XMS_ITS | Encounter Summary ---
Author Organization [facility] Address [address] [place] [address] Care Team Providers Care Body Presser Name Role Phone AdisAlem SAJI Primary Care Provider [phone] Reason for Visit * Reason Comments Follow-up Encounter Details Date Type Department Care Team ([facility] st Contact Info) Description 06/09/2021 1:00 PM EDT Office Visit [facility] [address] [place] [address] Eusebio Yang MD [address] [address] Stage 3b chronic kidney disease [...] EST Office Visit [facility] [address] [place] [address] [place] [address] Dieter Interiano MD [address] [place] [address] Scheduled Orders Name Type Priority [...] External Urine Appearance clear External Urine Specific [place] 1.020 External Urine pH 6.0 External Urine [...] by clean catch procedure / Unknown 05/09/2021 [facility] Provider LAB URINE ORDERABLES Mireya l Result * Renal Function Panel, Plasma (05/09/2021) External Glucose 263 External BUN 19 External Creatinine Blood 1.40 mg/dL External Sodium 137 mmol/L External Potassium 5.7 External Chloride 107 External Carbon Dioxide 26 External Calcium (Ca) 9.6 External Phosphorus 3.6 External Albumin 3.9 External Estimated GFR 38 Blood Venous blood specimen / Unknown 05/09/2021 Result [facility] Provider LAB BLOOD ORDERABLES Mireya l Result * CBC and Differential (05/09/2021) External WBC 9.5 External Red Blood Cell (RBC) 3.74 External Hemoglobin (Hgb) 11.10 External Hematocrit (Hct) 34.4 External Platelet Count (Plt) 418 Blood Venous blood specimen / Unknown 05/09/2021 Result [facility] Provider LAB BLOOD ORDERABLES Mireya l Result documented in this encounter Visit Diagnoses Diagnosis Stage 3b chronic kidney disease (CMS/HCC)- Primary Hyperkalemia Hyperpotassemia Anemia due to stage 3b chronic kidney disease (CMS/HCC) Persistent proteinuria Chronic kidney disease-mineral and bone disorder documented in this encounter Care Teams Body Presser Relationship Specialty Start Date End Date Alem Arceo PA [address] [place] [address] PCP - General 12/17/20 04/23/24 documented as of this encounter
--- OUTSIDE RECORDS SUMMARY | 2024-07-22 10:16 | XMS_ITS | Encounter Summary ---
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 Yes Provider Location: home Audio and video or audio only? Audio and video Total visit time: 18 minutes Orders Placed This Encounter Procedures Creatinine, Random, Urine Standing Status: Future Standing Expiration Date: 04/16/2025 Order Specific Question: Release to patient in [facility] Answer: Immediate Protein, Random, Urine with Creatinine Standing Status: Future Standing Expiration Date: 04/16/2025 Order Specific Question: Release to patient in [facility] Answer: Immediate Urinalysis with reflex microscopic (Culture NOT Included) Standing Status: Future Standing Expiration Date: 04/16/2025 Order Specific Question: Release to patient in [facility] Answer: Immediate CBC W/O Differential Standing Status: Future Standing Expiration Date: 04/16/2025 Order Specific Question: Release to patient in [facility] Answer: Immediate Renal Function Panel, Plasma Standing Status: Future Standing Expiration Date: 04/16/2025 Order Specific Question: Release to patient in [facility] Answer: Immediate Vitamin D 25 Hydroxy Standing Status: Future Standing Expiration Date: 04/16/2025 Order Specific Question: Release to patient in [facility] Answer: Immediate Note to Patient: The Cure [...] Office Visit [facility] [address] [place] [address] Dieter Interiano MD [address] [place] [phone] Scheduled Orders Name Type Priority Associated Diagnoses Orde r Schedule Creatinine, Random, Urine Lab Routine CKD (chronic kidney disease) stage 4, GFR 15-29 ml/min ([facility]) Expected: 10/15/2023 (Approximate), Expires: 04/16/2025 Protein, Random, Urine with Creatinine Lab Routine CKD (chronic kidney disease) stage 4, GFR 15-29 ml/min ([facility]) Expected: 10/15/2023 (Approximate), Expires: 04/16/2025 Urinalysis with reflex microscopic (Culture NOT Included) Lab Routine CKD (chronic kidney disease) stage 4, GFR 15-29 ml/min ([facility]) Expected: 10/15/2023 (Approximate), Expires: 04/16/2025 CBC W/O Differential Lab Routine CKD (chronic kidney disease) stage 4, GFR 15-29 ml/min ([facility]) Expected: 10/15/2023 (Approximate), Expires: 04/16/2025 Renal Function Panel, Plasma Lab Routine CKD (chronic kidney disease) stage 4, GFR 15-29 ml/min ([facility]) Expected: 10/15/2023 (Approximate), Expires: 04/16/2025 Vitamin D 25 Hydroxy Lab Routine CKD (chronic kidney disease) stage 4, GFR 15-29 ml/min ([facility]) Expected: 10/15/2023 (Approximate), Expires: 04/16/2025 [...] documented as of this encounter Care Teams Wood Craftsman Relationship Specialty Start Date End Date Alem Arceo PA [address] [place] [address] PCP - General 12/17/20 04/23/24 documented as of this encounter
--- OUTSIDE RECORDS SUMMARY | 2024-07-22 10:16 | XMS_ITS | Encounter Summary ---
Author Organization [facility] Address [address] [place] [address] Care Team Providers Care Franchise Broker Name Role Phone Alem Arceo Primary Care Provider [phone] Encounter Details Date Type Department Care Team ([facility] Contact Info) Description 02/24/2021 Orders Only [facility] [address] [place] [address] Zaynab So Hyperkalemia (Primary Dx) [...] Upcoming Encounters Date Type Department Care Team ([facility] Contact Info) Description 08/22/2024 1:20 PM EST Office Visit [facility] [address] [place] [address] Dieter Interiano MD [address] [place] [phone] documented as of this encounter Visit Diagnoses Diagnosis Hyperkalemia- Primary Hyperpotassemia documented in this encounter Care Teams Franchise Broker Relationship Specialty Start Date End Date Alem Arceo PA [address] [place] [address] PCP - General 12/17/20 04/23/24 documented as of this encounter
--- OUTSIDE RECORDS SUMMARY | 2024-07-22 10:16 | XMS_ITS | Encounter Summary ---
Author Organization [facility] Address [address] [place] [address] Care Team Providers Care Judicial Law Clerk Name Role Phone Alem Arceo Primary Care Provider [phone] Encounter Details Date Type Department Care Team [...] Description 08/22/2024 1:20 PM EST Office Visit [facility] [address] [place] [address] Dieter Interiano MD [address] [place] [phone] documented as of this encounter Visit Diagnoses Not on filedocumented in this encounter Care Teams Judicial Law Clerk Relationship Specialty Start Date End Date Alem Arceo PA [address] [place] [address] PCP - General 12/17/20 04/23/24 documented as of this encounter
--- OUTSIDE RECORDS SUMMARY | 2024-07-22 10:16 | XMS_ITS | Encounter Summary ---
Author Organization [facility] Address [address] [place] [address] Care Team Providers Care Chief Vendor Quality Name Role Phone AdisAlem SAJI Primary Care Provider [phone] Encounter Details Date Type Department Care Team (Late Contact Info) Description 05/20/2021 Orders Only [facility] [address] [address] Zaynab So [...] EST Office Visit [facility] [address] [address] Dieter Interiano MD [address] [place] [phone] documented as of this encounter Procedures Procedure [...] Hyperpotassemia documented in this encounter Care Teams Chief Vendor Quality Relationship Specialty Start Date End Date Alem Arceo PA [address] [place] [address] PCP - General 12/17/20 04/23/24 documented as of this encounter
--- OUTSIDE RECORDS SUMMARY | 2024-07-22 10:16 | XMS_ITS | Encounter Summary ---
Author Organization [facility] Address [address] [place] [address] Care Team Providers Care Hr Administrator Name Role Phone Melvin Arceoie Sakshi LENNON Primary Care Provider [phone] Reason for Visit * Reason Comments Follow-up Encounter Details Date Type Department Care Team (Late st Contact Info) Description 09/07/2022 2:00 PM EST Office Visit [facility] [address] [place] [address] Eusebio Yang MD [address] [address] CKD (chronic kidney disease) stage [...] Order Specific Question: Release to patient in [facility] Answer: Immediate Creatinine, Random, Urine Standing Status: Future Number of Occurrences: 1 Standing Expiration Date: 09/07/2023 Order Specific Question: Release to patient in [facility] Answer: Immediate Protein, Random, Urine with Creatinine Standing Status: Future Number of Occurrences: 1 Standing Expiration Date: 09/07/2023 Order Specific Question: Release to patient in [facility] Answer: Immediate Urinalysis with reflex microscopic Standing Status: Future Number of Occurrences: 1 Standing Expiration Date: 09/07/2023 Order Specific Question: Release to patient in [facility] Answer: Immediate CBC W/O Differential Standing Status: Future Number of Occurrences: 1 Standing Expiration Date: 09/07/2023 Order Specific Question: Release to patient in [facility] Answer: Immediate Renal Function Panel, Plasma Standing Status: Future Number of Occurrences: 1 Standing Expiration Date: 09/07/2023 Order Specific Question: Release to patient in [facility] Answer: Immediate documented in this encounter Plan of Treatment Upcoming Encounters Date Type Department Care Team (Late st Contact Info) Description 08/22/2024 1:20 PM EST Office Visit [place] [address] [place] [address] Dieter Interiano MD [address] [place] [phone] Scheduled Orders Name Type Priority Associated Diagnoses [...] kidney disease) stage 4, GFR 15-29 ml/min ([facility]) 1 Occurrences starting 09/07/2022 until 09/07/2023 CBC W/O Differential Lab Routine CKD (chronic kidney disease) stage 4, GFR 15-29 ml/min ([facility]) 1 Occurrences starting 09/07/2022 until 09/07/2023 Renal Function Panel, Plasma Lab Routine CKD (chronic kidney disease) stage 4, GFR 15-29 ml/min ([facility]) 1 Occurrences starting 09/07/2022 until 09/07/2023 documented as of this encounter Visit Diagnoses Diagnosis CKD (chronic kidney disease) stage 4, GFR 15-29 ml/min ([facility])- Primary Chronic kidney disease, Stage IV (severe) Anemia due to stage 3b chronic kidney disease ([facility]) Persistent proteinuria Chronic kidney disease-mineral and bone disorder Hyperkalemia Hyperpotassemia Vitamin D deficiency documented in this encounter Care Teams Hr Administrator Relationship Specialty Start Date End Date Alem Arceo PA [address] [place] [address] PCP - General 12/17/20 04/23/24 documented as of this encounter
--- OUTSIDE RECORDS SUMMARY | 2024-07-22 10:16 | XMS_ITS | Encounter Summary ---
Author Organization [facility] Address [address] [place] [address] Care Team Providers Care Sledger Name Role Phone AdisAlem SAJI Primary Care Provider [phone] Reason for Visit * Reason Comments Follow-up Encounter Details Date Type Department Care Team (Late st Contact Info) Description 08/09/2023 4:00 PM EST Office Visit [facility] [address] [place] [address] Eusebio Yang MD [address] [address] CKD (chronic kidney disease) stage [...] Question: Release to patient in [facility] Answer: Immediate Protein, Random, Urine with Creatinine Standing Status: Future Standing Expiration Date: 02/06/2025 Order Specific Question: Release to patient in [facility] Answer: Immediate Urinalysis with reflex microscopic Standing Status: Future Standing Expiration Date: 02/06/2025 Order Specific Question: [facility] Answer: Immediate CBC W/O Differential Standing Status: Future Standing Expiration Date: 02/06/2025 Order Specific Question: [facility] Answer: Immediate Renal Function Panel, Plasma Standing [...] Visit [facility] [address] [place] [address] Dieter Interiano MD [address] [place] [phone] Scheduled Orders Name Type Priority Associated Diagnoses [...] GFR 15-29 ml/min ([facility]) Expected: 08/09/2023 (Approximate), Expires: 02/06/2025 Renal Function Panel, Plasma Lab Routine CKD (chronic kidney disease) stage 4, GFR 15-29 ml/min ([facility]) Expected: 08/09/2023 (Approximate), Expires: 02/06/2025 Vitamin D 25 Hydroxy Lab Routine CKD (chronic kidney disease) stage 4, GFR 15-29 ml/min ([facility]) Expected: 08/09/2023 (Approximate), Expires: 02/06/2025 documented as of this encounter Visit Diagnoses Diagnosis CKD (chronic kidney disease) stage 4, GFR 15-29 ml/min ([facility])- Primary Chronic kidney disease, Stage IV (severe) Vitamin D deficiency documented in this encounter Additional Health Concerns Assessment Noted Time A fall risk assessment has been complete d for the patient 08/09/2023 4:09 PM EST A Body Mass Index follow-up plan has been documented for the patient 08/19/2023 9:07 PM EST documented as of this encounter Care Teams Sledger Relationship Specialty Start Date End Date Alem Arceo PA [address] [place] [address] PCP - General 12/17/20 04/23/24 documented as of this encounter
--- OUTSIDE RECORDS SUMMARY | 2024-07-22 10:16 | XMS_ITS | Encounter Summary ---
Author Organization [facility] Address [address] [place] [address] Care Team Providers Care Line Construction Engineer Name Role Phone AdisAlem SAJI Primary Care Provider [phone] Reason for Visit * Reason Comments Follow-up Encounter Details Date Type Department Care Team ([facility] st Contact Info) Description 03/07/2024 10:20 AM EDT Office Visit [facility] [address] [place] [address] Eusebio Yang MD [address] [address] CKD (chronic kidney disease) stage [...] Order Specific Question: Release to patient in [facility] Answer: Immediate Ferritin, Serum Standing Status: Future Standing Expiration Date: 09/07/2025 Order Specific Question: Release to patient in [facility] Answer: Immediate Creatinine, Random, Urine Standing Status: Future Standing Expiration Date: 09/07/2025 Order Specific Question: Release to patient in [facility] Answer: Immediate Protein, Random, Urine with Creatinine Standing Status: Future Standing Expiration Date: 09/07/2025 Order Specific Question: Release to patient in [facility] Answer: Immediate Urinalysis with reflex microscopic (Culture NOT Included) Standing Status: Future Standing Expiration Date: 09/07/2025 Order Specific Question: Release to patient in [facility] Answer: Immediate CBC W/O Differential Standing Status: Future Standing Expiration Date: 09/07/2025 Order Specific Question: Release to patient in [facility] Answer: Immediate Renal Function Panel, Plasma Standing Status: Future Standing Expiration Date: 09/07/2025 Order Specific Question: Release to patient in [facility] Answer: Immediate Note to Patient: The [...] 1:20 PM EST Office Visit [facility] [address] [place] [address] Dieter Interiano MD [address] [place] [phone] Scheduled Orders Name Type Priority Associated Diagnoses Orde r Schedule Iron & Total Iron Binding Capacity, Plasma (Includes Transferrin) Lab Routine CKD (chronic kidney disease) stage 4, GFR 15-29 ml/min (CMS/HCC) Anemia due to stage 3b chronic kidney disease (CMS/HCC) Expected: 03/07/2024 (Approximate), Expires: 09/07/2025 Ferritin, Serum Lab Routine CKD (chronic kidney disease) stage 4, GFR 15-29 ml/min ([facility]) Anemia due to stage 3b chronic kidney disease (CMS/HCC) Expected: 03/07/2024 (Approximate), Expires: 09/07/2025 Creatinine, Random, Urine Lab Routine CKD (chronic kidney disease) stage 4, GFR 15-29 ml/min ([facility]) Expected: 03/07/2024 (Approximate), Expires: 09/07/2025 Protein, Random, Urine with Creatinine Lab Routine CKD (chronic kidney disease) stage 4, GFR 15-29 ml/min (CMS/HCC) Expected: 03/07/2024 (Approximate), Expires: 09/07/2025 Urinalysis with reflex microscopic (Culture NOT Included) Lab Routine CKD (chronic kidney disease) stage 4, GFR 15-29 ml/min ([facility]) Expected: 03/07/2024 (Approximate), Expires: 09/07/2025 CBC W/O Differential Lab Routine CKD (chronic kidney disease) stage 4, GFR 15-29 ml/min ([facility]) Expected: 03/07/2024 (Approximate), Expires: 09/07/2025 Renal Function Panel, Plasma Lab Routine CKD (chronic kidney disease) stage 4, GFR 15-29 ml/min ([facility]) Expected: 03/07/2024 (Approximate), Expires: 09/07/2025 documented as of this encounter Visit Diagnoses Diagnosis CKD (chronic kidney disease) stage 4, GFR 15-29 ml/min ([facility])- Primary Chronic kidney disease, Stage IV (severe) Anemia due to stage 3b chronic kidney disease ([facility]) documented in this encounter Additional Health Concerns Assessment Noted Time A fall risk assessment has been complete d for the patient 10/15/2023 2:09 PM EDT A Body Mass Index follow-up plan has been documented for the patient 03/07/2024 11:10 AM EDT documented as of this encounter Care Teams Line Construction Engineer Relationship Specialty Start Date End Date Alem Arceo PA [address] [place] [address] PCP - General 12/17/20 04/23/24 documented as of this encounter
--- OUTSIDE RECORDS SUMMARY | 2024-07-22 10:16 | XMS_ITS | Encounter Summary ---
Author Organization [facility] Address [address] [place] [address] Care Team Providers Care Ramp Service Man Name Role Phone Alem Arceo Primary Care Provider [phone] Encounter Details Date Type Department Care Team [...] Description 08/22/2024 1:20 PM EST Office Visit [place] [id number] [facility] [address] [place] [address] Dieter Interiano MD [address] [place] [phone] documented as of this encounter Visit Diagnoses Not on filedocumented in this encounter Care Teams Ramp Service Man Relationship Specialty Start Date End Date Alem Arceo PA [address] [place] [address] PCP - General 12/17/20 04/23/24 documented as of this encounter
--- OUTSIDE RECORDS SUMMARY | 2024-07-22 10:16 | XMS_ITS | Encounter Summary ---
Author Organization [facility] Address [address] [place] [address] Care Team Providers Care Rubbish Collector Name Role Phone Melvin Arceowaylon Cantor SAJI Primary Care Provider [phone] Reason for Visit * Reason Comments Follow-up Encounter Details Date Type Department Care Team ([facility] st Contact Info) Description 01/05/2022 1:40 PM EDT Office Visit [facility] [address] [place] [address] Eusebio Yang MD [address] [address] Chronic kidney disease, stage 3b [...] 1:20 PM EST Office Visit [facility] [address] [place] [address] Dieter Interiano MD [address] [place] [phone] Scheduled Orders Name Type Priority Associated Diagnoses [...] (CMS/HCC) documented in this encounter Care Teams Rubbish Collector Relationship Specialty Start Date End Date Alem Arceo PA [address] [place] [address] PCP - General 12/17/20 04/23/24 documented as of this encounter
--- OUTSIDE RECORDS SUMMARY | 2024-07-22 10:16 | XMS_ITS | Encounter Summary ---
Author Organization [facility] Address [address] [place] [address] Care Team Providers Care Link Trainer Name Role Phone Maldonado Parker DO Primary Care Provider [phone] Reason for Visit * Reason Comments Follow-up Encounter Details Date Type Department Care Team ([facility] st Contact Info) Description 04/24/2024 11:40 AM EDT Office Visit [facility] [address] [facility] [address] [place] [address] Dieter Interiano MD [address] [place] [phone] CKD (chronic kidney disease) stage 4, GFR 15-29 ml/min (CMS/HCC) (Primary Dx); Iron deficiency anemia due to chronic blood loss; Mixed hyperlipidemia; Type 2 diabetes mellitus with stage 4 chronic kidney disease, 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 -on [id number] Farxiga ? Metabolic Acidosis: improved sCO2 22, [...] Order Specific Question: Release to patient in [facility] Answer: Immediate Urinalysis with reflex microscopic (Culture NOT Included) Standing Status: Future Standing Expiration Date: 05/29/2025 Order Specific Question: Release to patient in [facility] Answer: Immediate Vitamin D 25 Hydroxy Standing Status: Future Standing Expiration Date: 05/29/2025 Order Specific Question: Release to patient in [facility] Answer: Immediate PTH Intact Total Standing Status: Future Standing Expiration Date: 05/29/2025 Order Specific Question: Release to patient in [facility] Answer: Immediate Albumin-creatinine ratio, urine, random Standing Status: Future Standing Expiration Date: 05/29/2025 Order Specific Question: Release to patient in [facility] Answer: Immediate Protein, Random, Urine with Creatinine Standing Status: Future Standing Expiration Date: 05/29/2025 Order Specific Question: Release to patient in [facility] Answer: Immediate Renal Function Panel, Plasma Standing Status: Future Standing Expiration Date: 05/29/2025 Order Specific Question: Release to patient in [facility] Answer: Immediate Problem List Items Addressed This Visit CKD (chronic kidney disease) stage 4, GFR 15-29 ml/min ([facility]) - Primary Relevant Medications Farxiga 5 MG [...] mellitus with stage 4 chronic kidney disease ([facility]) Relevant Medications Farxiga 5 MG tablet lisinopril [...] Description 08/22/2024 1:20 PM EST Office Visit [facility] [address] [facility] [address] [place] [address] Dieter Interiano MD [address] [place] [address] Scheduled Orders Name Type Priority [...] kidney disease) stage 4, GFR 15-29 ml/min ([facility]) Expected: 07/23/2024 (Approximate), Expires: 05/29/2025 Renal Function Panel, Plasma Lab Routine CKD (chronic kidney disease) stage 4, GFR 15-29 ml/min ([facility]/HCC) Expected: 07/23/2024 (Approximate), Expires: 05/29/2025 documented as of this encounter Visit Diagnoses Diagnosis CKD (chronic kidney disease) stage 4, GFR 15-29 ml/min ([facility])- Primary Chronic kidney disease, Stage IV (severe) Iron deficiency anemia due to chronic blood loss Iron deficiency anemia secondary to blood loss (chronic) Mixed hyperlipidemia Type 2 diabetes mellitus with stage 4 chronic kidney disease, 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
--- OUTSIDE RECORDS SUMMARY | 2024-07-22 10:16 | XMS_ITS | Encounter Summary ---
Author Organization [facility] Address [address] [place] [address] Care Team Providers Care Assistant Inventory Manager Name Role Phone Alem Arceo Primary Care Provider [phone] Encounter Details Date Type Department Care Team [...] Office Visit [facility] [address] [place] [address] Dieter Interiano MD [address] [place] [phone] documented as of this encounter Visit Diagnoses Not on filedocumented in this encounter Care Teams Assistant Inventory Manager Relationship Specialty Start Date End Date Alem Arceo PA [address] [place] [address] PCP - General 12/17/20 04/23/24 documented as of this encounter
--- OUTSIDE RECORDS SUMMARY | 2024-07-22 10:16 | XMS_ITS | Encounter Summary ---
Author Organization [facility] Address [address] [place] [address] Care Team Providers Care Plastic Parts Fabricator Trimmer Name Role Phone Alem Arceo Primary Care Provider [phone] Encounter Details Date Type Department Care Team [...] Description 08/22/2024 1:20 PM EST Office Visit [facility] [address] [place] [address] Dieter Interiano MD [address] [place] [phone] documented as of this encounter Visit Diagnoses Not on filedocumented in this encounter Additional Health Concerns Assessment Noted Time A fall risk assessment has been complete d for the patient 10/15/2023 2:09 PM EDT A Body Mass Index follow-up plan has been documented for the patient 03/07/2024 11:10 AM EDT documented as of this encounter Care Teams Plastic Parts Fabricator Trimmer Relationship Specialty Start Date End Date Alem Arceo PA [address] [place] [address] PCP - General 12/17/20 04/23/24 documented as of this encounter
--- OUTSIDE RECORDS SUMMARY | 2024-07-22 10:16 | XMS_ITS | Clinical Summary ---
Author Organization [facility] Address [address] [place] [id number] Care Team Providers Care Mutuel Clerk Name Role Phone Maldonado Parker DO Primary Care Provider [phone] Allergies No known active allergies Medications Multiple [...] BLOOD THINNER 3 Active ergocalciferol 1.25 MG (28880 UT) capsule Take 1 capsule (50,000 Units) [...] Description 04/24/2024 11:40 AM EDT Office Visit [facility] [address] [place] [address] Dieter Interiano MD CKD (chronic kidney disease) stage 4, GFR 15-29 ml/min ([facility]) (Primary Dx); Iron deficiency anemia due to chronic blood loss; Mixed hyperlipidemia; Type 2 diabetes mellitus with stage 4 chronic kidney disease, unspecified whether usp insulin use ([facility]); Chronic kidney disease-mineral and bone disorder (CKD-MBD) 04/24/2024 Travel from Last 3 Months Immunizations Name Administration Dates Next Due Hep A, Adult 06/21/2018 Hep B, adult 03/04/2004,10/01/2003,08/12/2003 Influenza, high-dose, quadrivalent 06/08/2023, Moderna Covid-19 Vaccine 12y +, rBant Protein, Preservative free 06/08/2023 Tdap 04/17/2012 Family [...] Description 08/22/2024 1:20 PM EST Office Visit [facility] [address] [place] [address] iDeter Interiano MD [address] [place] [phone] Health Maintenance Due Date Last Done [...] (2 - Td or Tdap) 04/17/2022 04/17/2012 [id number] Vaccine ( season) 2024 06/08/2023, 06/06/2022, 07/13/2021, [...] this topic Insurance MEDICARE [place] Care Teams Mutuel Clerk Relationship Specialty Start Date End Date Maldonado Parker DO [address] [place] [address] PCP - General 04/24/24
--- OUTSIDE RECORDS SUMMARY | 2024-07-22 10:16 | XMS_ITS | Encounter Summary ---
Author Organization [facility] Address [address] [place] [address] Care Team Providers Care Meter Repair Shop Supervisor Name Role Phone Alem Arceo Primary Care [...] [facility] [address] [place] [address] Dieter Interiano MD [address] [place] [phone] documented as of this encounter Visit Diagnoses Not on filedocumented in this encounter Additional Health Concerns Assessment Noted Time A fall risk assessment has been complete d for the patient 05/14/2023 4:02 PM EDT documented as of this encounter Care Teams Meter Repair Shop Supervisor Relationship Specialty Start Date End Date Alem Arceo PA [address] [place] [address] PCP - General 12/17/20 04/23/24 documented as of this encounter
--- OUTSIDE RECORDS SUMMARY | 2024-07-22 10:16 | XMS_ITS | Encounter Summary ---
Author Organization [facility] Address [address] [place] [address] Care Team Providers Care Retail Warehouse Supervisor Name Role Phone AdisAlem SAJI Primary Care Provider [phone] Reason for Visit * Reason Comments Follow-up Encounter Details Date Type Department Care Team ([facility] st Contact Info) Description 12/11/2022 1:20 PM EDT Office Visit [facility] [address] [place] [address] Eusebio Yang MD [address] [address] CKD (chronic kidney disease) stage 4, GFR 15-29 ml/min ([facility]/HCC) (Primary Dx); Vitamin D deficiency; Hyperkalemia; Anemia [...] Patient confirms they are physically located in [place]? Yes DOMINIQUE Anders is a 67 y.o. [...] online digital audio and video Patient Location [facility] Provider Location Provider's Home Total Time 34 minutes Orders Placed This Encounter Procedures Creatinine, Random, Urine Standing Status: Future Number of Occurrences: 1 Standing Expiration Date: 12/12/2023 Order Specific Question: Release to patient in [facility] Answer: Immediate Protein, Random, Urine with Creatinine Standing Status: Future Number of Occurrences: 1 Standing Expiration Date: 12/12/2023 Order Specific Question: Release to patient in [facility] Answer: Immediate Urinalysis with reflex microscopic Standing Status: Future Number of Occurrences: 1 Standing Expiration Date: 12/12/2023 Order Specific Question: Release to patient in [facility] Answer: Immediate CBC W/O Differential Standing Status: Future Number of Occurrences: 1 Standing Expiration Date: 12/12/2023 Order Specific Question: Release to patient in [facility] Answer: Immediate Renal Function Panel, Plasma Standing Status: Future Number of Occurrences: 1 Standing Expiration Date: 12/12/2023 Order Specific Question: Release to patient in [facility] Answer: Immediate Vitamin D 25 Hydroxy Standing Status: Future Standing Expiration Date: 06/13/2024 Order Specific Question: Release to patient in [facility] Answer: Immediate Iron & Total Iron Binding Capacity, Plasma (Includes Transferrin) Standing Status: Future Number of Occurrences: 1 Standing Expiration Date: 12/12/2023 Order Specific Question: Release to patient in [facility] Answer: Immediate Ferritin, Serum Standing Status: Future Number of Occurrences: 1 Standing Expiration Date: 12/12/2023 Order Specific Question: Release to patient in [facility] Answer: Immediate documented in this encounter Plan of Treatment Upcoming Encounters Date Type Department Care Team (Late st Contact Info) Description 08/22/2024 1:20 PM EST Office Visit [facility] [address] [place] [address] Dieter Interiano MD [address] [place] [phone] Scheduled Orders Name Type Priority Associated Diagnoses [...] kidney disease) stage 4, GFR 15-29 ml/min ([facility]) 1 Occurrences starting 12/11/2022 until 12/12/2023 CBC W/O Differential Lab Routine CKD (chronic kidney disease) stage 4, GFR 15-29 ml/min ([facility]) 1 Occurrences starting 12/11/2022 until 12/12/2023 Renal Function Panel, Plasma Lab Routine CKD (chronic kidney disease) stage 4, GFR 15-29 ml/min ([facility]) 1 Occurrences starting 12/11/2022 until 12/12/2023 Iron & Total Iron Binding Capacity, Plasma (Includes Transferrin) Lab Routine Anemia due to stage 3b chronic kidney disease ([facility]/HCC) 1 Occurrences starting 12/11/2022 until 12/12/2023 Ferritin, Serum Lab Routine Anemia due to stage 3b chronic kidney disease ([facility]/HCC) 1 Occurrences starting 12/11/2022 until 12/12/2023 documented as of this encounter Visit Diagnoses Diagnosis CKD (chronic kidney disease) stage 4, GFR 15-29 ml/min ([facility])- Primary Chronic kidney disease, Stage IV (severe) Vitamin D deficiency Hyperkalemia Hyperpotassemia Anemia due to stage 3b chronic kidney disease ([facility]/HCC) documented in this encounter Care Teams Retail Warehouse Supervisor Relationship Specialty Start Date End Date Alem Arceo PA [address] [place] [address] PCP - General 12/17/20 04/23/24 documented as of this encounter
--- OUTSIDE RECORDS SUMMARY | 2024-07-22 10:16 | XMS_ITS ---
Laboratory report Created on: July 12, 2024 LIONEL MARSH : 1955 Sex: Female Author Organization Unknown PROBLEMS Problems List Code Description RESULTS Laboratory Orders Date Order Code Test 2024-07-09 [id number] THYROGLOBULIN AN TIBODY 2024-07-09 [id number] TRIIODOTHYRONINE (T3), FREE Laboratory Results Date LOINC Test Value Unit Reference Range Interpre tation 2024-07-09 8098-6 THYROGLOBULIN ANTIBODY LTTA IU/ML 0.0-0. 9 2024-07-09 3051-0 TRIIODOTHYRONINE (T3), FREE 2.1 PG/ML 2.0-4.4
--- OUTSIDE RECORDS SUMMARY | 2024-07-22 10:16 | XMS_ITS | Encounter Summary ---
Author Organization [facility] Address [address] [place] [address] Care Team Providers Care Sand And Gravel Plant Operator Name Role Phone Maldonado Parker DO Primary Care Provider [phone] Encounter Details Date Type Department Care Team [...] Upcoming Encounters Date Type Department Care Team ([facility] st Contact Info) Description 08/22/2024 1:20 PM EST Office Visit [facility] [address] [facility] [address], [place] [address] Dieter Interiano MD [address] [place] [phone] documented as of this encounter Visit Diagnoses Not on filedocumented in this encounter Additional Health Concerns Assessment Noted Time A fall risk assessment has been complete d for the patient 10/15/2023 2:09 PM EDT A Body Mass Index follow-up plan has been documented for the patient 04/24/2024 12:33 PM EDT documented as of this encounter Care Teams Sand And Gravel Plant Operator Relationship Specialty Start Date End Date Maldonado Parker DO [address] [place] [address] PCP - General 04/24/24 documented as of this encounter
--- OUTSIDE RECORDS SUMMARY | 2024-07-22 10:16 | XMS_ITS | Encounter Summary ---
Author Organization [facility] Address [address] [place] [address] Care Team Providers Care Fretted Instrument Inspector Name Role Phone Alem Arceo Primary Care Provider [phone] Encounter Details Date Type Department Care Team [...] Description 08/22/2024 1:20 PM EST Office Visit [place] [id number] [facility] [address] [place] [address] Dieter Interiano MD [address] [place] [phone] documented as of this encounter Visit Diagnoses Not on filedocumented in this encounter Care Teams Fretted Instrument Inspector Relationship Specialty Start Date End Date Alem Arceo PA [address] [place] [address] PCP - General 12/17/20 04/23/24 documented as of this encounter
--- OUTSIDE RECORDS SUMMARY | 2024-07-22 10:16 | XMS_ITS | Encounter Summary ---
Author Organization [facility] Address [address] [place] [address] Care Team Providers Care Combustion Analyst Name Role Phone Alem Arceo Primary Care Provider [phone] Encounter Details Date Type Department Care Team [...] Office Visit [facility] [address] [place] [address] Dieter Interiano MD [address] [place] [phone] documented as of this encounter Visit Diagnoses Not on filedocumented in this encounter Care Teams Combustion Analyst Relationship Specialty Start Date End Date Alem Arceo PA [address] [place] [address] PCP - General 12/17/20 04/23/24 documented as of this encounter
--- OUTSIDE RECORDS SUMMARY | 2024-07-22 10:16 | XMS_ITS | Encounter Summary ---
Author Organization [facility] Address [address] [place] [address] Care Team Providers Care Scoreboard Operator Name Role Phone AdisAlem SAJI Primary Care Provider Reason for Visit * Reason Comments Follow-up Encounter Details Date Type Department Care Team ([facility] st Contact Info) Description 05/14/2023 4:00 PM EDT Office Visit [facility] [address] [place] [address] Eusebio Yang MD [address] [address] CKD (chronic kidney disease) [...] Patient confirms they are physically located in [place]? Yes SUBJECTIVE Radha Anders is a 67 [...] online digital audio and video Patient Location [facility] Provider Location Provider's Home Total Time 17 [...] 1:20 PM EST Office Visit [facility] [address] [place] [address] Dieter Interiano MD [address] [place] [phone] documented as of this encounter Visit [...] documented as of this encounter Care Teams Scoreboard Operator Relationship Specialty Start Date End Date Alem Arceo PA [address] [place] [address] PCP - General 12/17/20 04/23/24 documented as of this encounter
--- OUTSIDE RECORDS SUMMARY | 2024-07-22 10:16 | XMS_ITS | Encounter Summary ---
Author Organization [facility] Address [address] [place] [address] Care Team Providers Care Cuff Stitcher Name Role Phone Alem Arceo Primary Care [...] 08/22/2024 1:20 PM EST Office Visit [facility] [address] [place] [address] Dieter Interiano MD [address] [place] [phone] documented as of this encounter Visit Diagnoses Not on filedocumented in this encounter Additional Health Concerns Assessment Noted Time A fall risk assessment has been complete d for the patient 10/15/2023 2:09 PM EDT A Body Mass Index follow-up plan has been documented for the patient 10/15/2023 2:54 PM EDT documented as of this encounter Care Teams Cuff Stitcher Relationship Specialty Start Date End Date Alem Arceo PA [address] [place] [address] PCP - General 12/17/20 04/23/24 documented as of this encounter
--- OUTSIDE RECORDS SUMMARY | 2024-07-22 10:16 | XMS_ITS | Encounter Summary ---
Author Organization [facility] Address [address] [place] [address] Care Team Providers Care Program Management Intern Name Role Phone Adis Alem Cant[place] SAJI Primary Care Provider [phone] Reason for Visit * Reason Comments Follow-up Encounter Details Date Type Department Care Team ([facility] st Contact Info) Description 05/15/2022 2:00 PM EDT Office Visit [facility] [address] [place] [address] Eusebio Yang MD [address] [address] CKD (chronic kidney disease) stage [...] Patient confirms they are physically located in [place]? Yes SUBJECTIVE Radha Anders is a 66 [...] online digital audio and video Patient Location [facility] Provider Location Provider's Home Total Time 17 minutes Orders Placed This Encounter Procedures PTH Intact Total Standing Status: Future Number of Occurrences: 1 Standing Expiration Date: 05/15/2023 Order Specific Question: Release to patient in [facility] Answer: Immediate Vitamin D 25 Hydroxy Standing Status: Future Number of Occurrences: 1 Standing Expiration Date: 05/15/2023 Order Specific Question: Release to patient in [facility] Answer: Immediate Creatinine, Random, Urine Standing Status: Future Number of Occurrences: 1 Standing Expiration Date: 11/13/2022 Order Specific Question: Release to patient in [facility] Answer: Immediate Protein, Random, Urine with Creatinine Standing Status: Future Number of Occurrences: 1 Standing Expiration Date: 11/13/2022 Order Specific Question: Release to patient in [facility] Answer: Immediate Urinalysis with reflex microscopic Standing Status: Future Number of Occurrences: 1 Standing Expiration Date: 08/15/2022 Order Specific Question: Release to patient in [facility] Answer: Immediate CBC W/O Differential Standing Status: Future Number of Occurrences: 1 Standing Expiration Date: 05/15/2023 Order Specific Question: Release to patient in [facility] Answer: Immediate Renal Function Panel, Plasma Standing Status: Future Number of Occurrences: 1 Standing Expiration Date: 05/15/2023 Order Specific Question: Release to patient in [facility] Answer: Immediate Iron & Total Iron Binding Capacity, Plasma (Includes Transferrin) Standing Status: Future Number of Occurrences: 1 Standing Expiration Date: 05/15/2023 Order Specific Question: Release to patient in [facility] Answer: Immediate Ferritin, Serum Standing Status: Future Number of Occurrences: 1 Standing Expiration Date: 05/15/2023 Order Specific Question: Release to patient in MyChart Answer: Immediate documented in this encounter Plan of Treatment Upcoming Encounters Date Type Department Care Team (Late st Contact Info) Description 08/22/2024 1:20 PM EST Office Visit [facility] [facility] [address] [place] [address] Dieter Interiano MD [address] [phone] Scheduled Orders Name Type Priority Associated [...] due to stage 3b chronic kidney disease ([facility]/HCC) 1 Occurrences starting 05/15/2022 until 05/15/2023 documented as of this encounter Visit Diagnoses Diagnosis CKD (chronic kidney disease) stage 4, GFR 15-29 ml/min (CMS/HCC)- Primary Chronic kidney disease, Stage IV (severe) Hyperkalemia Hyperpotassemia Persistent proteinuria Anemia due to stage 3b chronic kidney disease (CMS/HCC) documented in this encounter Care Teams Program Management Intern Relationship Specialty Start Date End Date Alem Arceo PA [address] [place] [address] PCP - General 12/17/20 04/23/24 documented as of this encounter
--- OUTSIDE RECORDS SUMMARY | 2024-07-22 10:16 | XMS_ITS | Encounter Summary ---
Author Organization [facility] Address [address] [place] [address] Care Team Providers Care Neonatal Critical Care Nurse Name Role Phone Alem Arceo Primary Care Provider [phone] Encounter Details Date Type Department Care Team [...] Description 08/22/2024 1:20 PM EST Office Visit [facility] [address] [place] [address] Dieter Interiano MD [address] [place] [phone] documented as of this encounter Visit Diagnoses Not on filedocumented in this encounter Care Teams Neonatal Critical Care Nurse Relationship Specialty Start Date End Date Alem Arceo PA [address] [place] [address] PCP - General 12/17/20 04/23/24 documented as of this encounter
--- OUTSIDE RECORDS SUMMARY | 2024-07-22 10:16 | XMS_ITS | Encounter Summary ---
Author Organization [facility] Address [address] [place] [address] Care Team Providers Care Digital Director Name Role Phone Alem Arceo Primary Care Provider [phone] Encounter Details Date Type Department Care Team [...] [facility] [address] [place] [address] Dieter Interiano MD [address] [place] [phone] documented as of this encounter Visit Diagnoses Not on filedocumented in this encounter Additional Health Concerns Assessment Noted Time A fall risk assessment has been complete d for the patient 08/09/2023 4:09 PM EST A Body Mass Index follow-up plan has been documented for the patient 08/19/2023 9:07 PM EST documented as of this encounter Care Teams Digital Director Relationship Specialty Start Date End Date Alem Arceo PA [address] [place] [address] PCP - General 12/17/20 04/23/24 documented as of this encounter
--- OUTSIDE RECORDS SUMMARY | 2024-07-22 10:16 | XMS_ITS | Encounter Summary ---
Author Organization [facility] Address [address] [place] [address] Care Team Providers Care Cell Biologist Name Role Phone Melvin Arceoie Sakshi LENNON Primary Care Provider [phone] Reason for Visit * Reason Comments Follow-up Encounter Details Date Type Department Care Team ([facility] st Contact Info) Description 03/08/2023 2:20 PM EDT Office Visit [facility] [address] [place] [address] Eusebio Yang MD [address] [address] CKD (chronic kidney disease) stage [...] Order Specific Question: Release to patient in [facility] Answer: Immediate Protein, Random, Urine with [...] Description 08/22/2024 1:20 PM EST Office Visit [facility] [address] [place] [address] Dieter Interiano MD [address] [place] [phone] documented as of this encounter Visit [...] documented as of this encounter Care Teams Cell Biologist Relationship Specialty Start Date End Date Alem Arceo PA [address] [place] [address] PCP - General 12/17/20 04/23/24 documented as of this encounter
--- OUTSIDE RECORDS SUMMARY | 2024-07-22 10:16 | XMS_ITS | Encounter Summary ---
Author Organization [facility] Address [address] [place] [address] Care Team Providers Care Test Desk Trouble Locator Name Role Phone Adis Unicoi D SAJI Primary Care Provider [phone] Reason for Visit * Reason Comments Follow-up Encounter Details Date Type Department Care Team (Late st Contact Info) Description 04/03/2022 1:20 PM EDT Office Visit [facility] [address] [place] [address] Rehan Juan MD [address] [address] CKD (chronic kidney disease) stage [...] Description 08/22/2024 1:20 PM EST Office Visit [facility] [address] [place] [address] Dieter Interiano MD [address] [place] [phone] documented as of this encounter Visit Diagnoses Diagnosis CKD (chronic kidney disease) stage 4, GFR 15-29 ml/min ([facility])- Primary Chronic kidney disease, Stage IV (severe) Hyperkalemia Hyperpotassemia Persistent proteinuria Renal osteodystrophy documented in this encounter Care Teams Test Desk Trouble Locator Relationship Specialty Start Date End Date Alem Arceo PA [address] [place] [address] PCP - General 12/17/20 04/23/24 documented as of this encounter
--- OUTSIDE RECORDS SUMMARY | 2024-07-22 10:16 | XMS_ITS | Encounter Summary ---
Author Organization [facility] Address [address] [place] [address] Care Team Providers Care Grommet Machine Operator Name Role Phone Alem Arceo SAJI Primary Care Provider [phone] Encounter Details Date Type Department Care Team (Late st Contact Info) Description 01/25/2022 Orders Only [facility] [address] [address] [...] PM EST Office Visit [facility] [address] [address] Dieter Interiano MD [address] [place] [phone] documented as of this encounter Visit Diagnoses Not on filedocumented in this encounter Care Teams Grommet Machine Operator Relationship Specialty Start Date End Date Alem Arceo PA [address] [place] [address] PCP - General 12/17/20 04/23/24 documented as of this encounter
--- OUTSIDE RECORDS SUMMARY | 2024-07-22 10:16 | XMS_ITS | Encounter Summary ---
Author Organization [facility] Address [address] [place] [address] Care Team Providers Care Mexican Food Maker Name Role Phone Alem Arceo Primary Care Provider [phone] Encounter Details Date Type Department Care Team [...] Description 08/22/2024 1:20 PM EST Office Visit [facility] [address] [place] [address] Dieter Interiano MD [address] [place] [phone] documented as of this encounter Visit Diagnoses Not on filedocumented in this encounter Additional Health Concerns Assessment Noted Time A fall risk assessment has been complete d for the patient 03/08/2023 2:24 PM EDT documented as of this encounter Care Teams Mexican Food Maker Relationship Specialty Start Date End Date Alem Arceo PA [address] [place] [address] PCP - General 12/17/20 04/23/24 documented as of this encounter
--- OUTSIDE RECORDS SUMMARY | 2024-07-22 10:17 | XMS_ITS | Encounter Summary ---
Author Organization [facility] Address [address] [place] [address] Care Team Providers Care Fans Clerk Name Role Phone Alem Arceo Primary Care Provider [phone] Encounter Details Date Type Department Care Team ([facility] Contact Info) Description 02/08/2021 Orders Only [facility] [address] [place] [address] Zaynab So Hyperkalemia (Primary Dx) [...] Upcoming Encounters Date Type Department Care Team ([facility] Contact Info) Description 08/22/2024 1:20 PM EST Office Visit [facility] [address] [place] [address] Dieter Interiano MD [address] [place] [phone] documented as of this encounter Visit Diagnoses Diagnosis Hyperkalemia- Primary Hyperpotassemia documented in this encounter Care Teams Fans Clerk Relationship Specialty Start Date End Date Alem Arceo PA [address] [place] [address] PCP - General 12/17/20 04/23/24 documented as of this encounter
--- OUTSIDE RECORDS SUMMARY | 2024-07-22 10:17 | XMS_ITS | Encounter Summary ---
Author Organization [facility] Address [address] [place] [address] Care Team Providers Care Driver Sales Name Role Phone AdisAlem SAJI Primary Care Provider [phone] Reason for Visit * Reason Comments Follow-up Encounter Details Date Type Department Care Team ([facility] st Contact Info) Description 02/03/2021 1:40 PM EDT Office Visit [facility] [address] [place] [address] Eusebio Yang MD [address] [address] Stage 3b chronic kidney disease [...] EST Office Visit [facility] [address] [place] [address] [...] (CMS/HCC) documented in this encounter Care Teams Driver Sales Relationship Specialty Start Date End Date Alem Arceo PA [address] [place] [address] PCP - General 12/17/20 04/23/24 documented as of this encounter
--- OUTSIDE RECORDS SUMMARY | 2024-07-22 10:17 | XMS_ITS | Encounter Summary ---
Author Organization [facility] Address [address] [place] [address] Care Team Providers Care Daily Sales Audit Clerk Name Role Phone Alem Arceo Primary Care Provider [phone] Encounter Details Date Type Department Care Team [...] 1:20 PM EST Office Visit [place] [id number] [facility] [address] [place] [address] Dieter Interiano MD [address] [place] [phone] documented as of this encounter Visit Diagnoses Not on filedocumented in this encounter Care Teams Daily Sales Audit Clerk Relationship Specialty Start Date End Date Alem Arceo PA [address] [place] [address] PCP - General 12/17/20 04/23/24 documented as of this encounter
--- OUTSIDE RECORDS SUMMARY | 2024-07-22 10:17 | XMS_ITS | Encounter Summary ---
Author Organization [facility] Address [address] [place] [address] Care Team Providers Care Outside Plant Technician Name Role Phone Alem Arceo Primary Care Provider [phone] Encounter Details Date Type Department Care Team ([facility] Contact Info) Description 02/03/2021 Orders Only [facility] [address] [place] [address] aZynab So Social History Tobacco Use Types Packs/Day [...] PM EST Office Visit [facility] [address] [place] [address] Dieter Interiano MD [address] [place] [phone] documented as of this encounter Visit Diagnoses Not on filedocumented in this encounter Care Teams Outside Plant Technician Relationship Specialty Start Date End Date Alem Arceo PA [address] [address] PCP - General 12/17/20 04/23/24 documented as of this encounter
--- OUTSIDE RECORDS SUMMARY | 2024-07-22 10:17 | XMS_ITS | Encounter Summary ---
Author Organization [facility] Address [address] [place] [address] Care Team Providers Care Supervisor Locomotive Name Role Phone AdisAlem SAJI Primary Care Provider [phone] Encounter Details Date Type Department Care Team ([facility] Contact Info) Description 02/01/2021 Telephone [facility] [address] [place] [address] Eusebio Yang MD [address] [place] [address] Social History Tobacco Use Types [...] Felipe Washington stating that Najma Taylor from [facility] had call in a critical lab value, potassium 6.2. Call routed to Dr. Yang for further direction. documented in this encounter Plan of Treatment Upcoming Encounters Date Type Department Care Team (Late st Contact Info) Description 08/22/2024 1:20 PM EST Office Visit [facility] [address] [place] [address] Dieter Interiano MD [address] [place] [phone] documented as of this encounter Visit Diagnoses Not on filedocumented in this encounter Care Teams Supervisor Locomotive Relationship Specialty Start Date End Date Alem Arceo PA [address] [place] [address] PCP - General 12/17/20 04/23/24 documented as of this encounter
== END 2024-07-17 14:19 | disposition home or self-care (01) ==
PROVIDERS: PCP Internal Medicine; Visit Provider Internal Medicine Gastroenterology
PROC: (CPT 45380; principal; 2024-07-17 12:30)
DX: K52.9 Noninfective gastroenteritis and colitis, unspecified (principal); R19.4 Change in bowel habit; Z83.79 Family history of other diseases of the digestive system; R10.30 Lower abdominal pain, unspecified; R15.2 Fecal urgency; K64.8 Other hemorrhoids; K63.5 Polyp of colon; E11.42 Type 2 diabetes mellitus with diabetic polyneuropathy; Z79.84 Long term (current) use of oral hypoglycemic drugs
CPT/HCPCS: 45380; 45385; 82962; 88300; 88305; J7120

== ENCOUNTER 2024-07-23 22:53 | Outpatient (CLI) | payer MEDICARE, MEDICAID, SELFPAY ==
[2024-07-23 23:53] LABS: Free T4 (Free Thyroxine) 1.03 ng/dl (0.78-2.19)
[2024-07-26 02:10] LABS: Thyroid Peroxidase Antibodies 13 IU/mL (0-34); Triiodothyronine (T3) Free 2.2 pg/mL (2.0-4.4)
== END 2024-07-23 23:59 | disposition home or self-care (01) ==
LOC: LAB.DROPOF 22:54
PROVIDERS: PCP Internal Medicine; Visit Provider Internal Medicine
DX: E03.9 Hypothyroidism, unspecified (principal)
CPT/HCPCS: 84439; 84481; 86376

== ENCOUNTER 2024-07-24 10:59 | Emergency (ER) | payer MEDICARE, MEDICAID, SELFPAY ==
[2024-07-24] VITALS (10 sets, daily range): BP systolic 132–165; BP diastolic 52–76; PULSE 67–78; RESP 12–18; TEMP 36.7–36.9; O2SAT 92–100; BMI 22.3
--- NOTE | 2024-07-24 11:03 | ECG_ITS ---
APPROVED REPORT Exam: Resting ECG HR:72 bpm ECG Measurements Heart Rate 72 AXES IL 146 P 4 QRSd 90 QRS -48 QT 381 T 83 QTc 405 Conclusion SINUS RHYTHM LEFT ANTERIOR FASCICULAR BLOCK [QRS AXIS <= -45, QR IN I, RS IN II] LEFT VENTRICULAR HYPERTROPHY AND ST-T CHANGE [VOLTAGE CRITERIA PLUS ST/T ABNORMALITY] POSSIBLE SEPTAL MYOCARDIAL INFARCTION , OF INDETERMINATE AGE [30 ms Q WAVE IN V1/V2] ABNORMAL ECG Electronically signed by : GEOVANNI ABDALLA, 07/26/2024 07:25:00
--- NOTE | 2024-07-24 11:44 | CT_ITS ---
FINAL REPORT TECHNIQUE: Noncontrast exam This study was performed with techniques to keep radiation doses as low as reasonably achievable, (ALARA). Individualized dose reduction techniques using automated exposure control or adjustment of mA and/or kV according to the patient's size were employed. CLINICAL HISTORY: weakness COMPARISON: 03/27/2024 FINDINGS: Mild generalized atrophy and chronic ischemic white matter changes are noted. There is a small chronic lacunar infarct in the right caudate nucleus head. This was present on the prior. No cortical edema is present. There is no mass or hemorrhage. Ventricles are normal. Bone windows show no skull fracture or obvious obstructive lesion. IMPRESSION: 1. No acute intracranial abnormality or obvious mass. 2. Atrophy and chronic ischemic white matter changes as above. Reviewed, Interpreted and Dictated by Ilana Ortega MD Transcribed by Taisha Cutler Authenticated and [facility]
--- NOTE | 2024-07-24 11:44 | XR_ITS ---
FINAL REPORT CLINICAL HISTORY: weakness FINDINGS: No acute pulmonary opacity is present. There is no evidence of effusion or pneumothorax. Mediastinum is unremarkable. Heart size is normal. IMPRESSION: No acute abnormality. Authenticated and [facility]
--- NOTE | 2024-07-24 11:46 | HMH.EDGENADL ---
Discharge Plan Disposition Patient Disposition: Xfer Short-Term Hosp Prescriptions Prescriptions: No Action atorvastatin 40 mg tablet 40 mg PO HS Qty: 90 3RF metoprolol succinate 100 mg tablet extended release 24 hr 100 mg PO DAILY Qty: 90 3RF nitroglycerin 0.3 mg tablet, sublingual 0.3 mg sublingual Q5M PRN (Reason: chest pain) Qty: 25 0RF Rx Instructions: do not exceed 3 doses per episode (DME) Veronique Ultra Briefs-Medium Misc See Rx Instructions .Route Qty: 80 0RF Rx Instructions: As directed sodium bicarbonate 650 mg tablet 650 mg PO BID dapagliflozin propanediol [Farxiga] 5 mg tablet 5 mg PO DAILY glipizide 10 mg tablet extended release 24hr 10 mg PO DAILY Qty: 90 3RF famotidine [Pepcid] 40 mg tablet 40 mg PO DAILY Qty: 90 3RF levothyroxine 25 mcg capsule 25 mcg PO DAILY Qty: 30 2RF cholecalciferol (vitamin D3) 25 mcg (1,000 unit) tablet 50 mcg PO DAILY Qty: 90 3RF hydralazine 25 mg tablet 25 mg PO TID Qty: 90 3RF ferrous sulfate 325 mg (65 mg iron) tablet 325 mg PO DAILY doxycycline hyclate 100 mg capsule 100 mg PO BID 14 Days Qty: 28 0RF mupirocin 2 % ointment 1 applic topical BID 14 Days Qty: 15 0RF (DME) FreeStyle Lite Strips Strip See Rx Instructions .Route Qty: 100 5RF Rx Instructions: tests BID (DME) lancets [FreeStyle Lancets] 28 gauge misc See Rx Instructions .Route Qty: 100 5RF Rx Instructions: bid testing. e11.9 diphenoxylate-atropine [Lomotil] 2.5-0.025 mg tablet 1 tab PO Q8HP PRN (Reason: diarrhea) pantoprazole 40 mg Tablet,Delayed Release (Dr/Ec) 40 mg PO DAILY 30 Days Qty: 30 0RF colestipol 1 gram tablet 2 g PO .At bedtime Qty: 60 12RF Rx Instructions: 2 tablets p.o. nightly Referrals Follow up/Referrals: Maldonado Parker DO [Primary Care Provider] - See instructions Clinical Impressions Clinical Impression: Calculus of left ureter, UTI (urinary tract infection), JAMAR (acute kidney injury), General weakness Print Language Print Language: Citizen Of [place] Discharge ED Provider: Jazmine Mcgee General Adult HPI General Chief complaint: Weakness Stated complaint: Weakness Time Seen by Provider: 07/24/24 11:19 Mode of Arrival: Ambulatory Source of Information: Patient Limitations: No Limitations Description of Symptoms (Recalled from ER Triage Doc. by RN): pt to the ED with increased generalized weakness since her colonoscopy last . pt reports she slept all night in her rocking chair and scooted her way to her door this morining to let her neighbor in when the neighbor called EMS. pt denies any pain or falls at this time. History of Present Illness HPI narrative: This patient is a 68-year-old female with a history of CKD 4, type 2 diabetes, hypertension, hyperlipidemia, hypothyroidism, anxiety, and chronic diarrhea presenting to the emergency department for evaluation with concern for general weakness. Patient states that she had a colonoscopy last and is felt generally weak ever since. She states that she slept in her rocking chair all night, and when she got up this morning she was too weak to get up and walk. She states that she slid out of the chair intentionally, scooted away to the door this morning, and let her neighbor ran. Her neighbor then called EMS. She states that she had some nausea and vomiting this morning but denies any other significant concerns or complaints. No fevers, chills, headache, vision changes, numbness, tingling, unilateral weakness, chest pain, shortness of breath, abdominal pain, changes in bowel movements, rashes, or swelling. Related Data Home Medications ?Medication ?Instructions ?Recorded ?Confirmed ferrous sulfate 325 mg (65 mg 325 mg PO DAILY 06/06/23 07/21/24 iron) tablet diphenoxylate-atropine 2.5 1 tab PO Q8HP PRN diarrhea 01/07/24 07/21/24 mg-0.025 mg tablet (Lomotil) dapagliflozin propanediol 5 mg 5 mg PO DAILY 05/13/24 07/21/24 tablet (Farxiga) sodium bicarbonate 650 mg tablet 650 mg PO BID 05/13/24 07/21/24 Previous Rx's ?Medication ?Instructions ?Recorded atorvastatin 40 mg tablet 40 mg PO HS High cholesterol #90 08/02/23 tabs diaper,brief,adult,disposable #80 ea 08/02/23 (Veronique Ultra Briefs-Medium) metoprolol succinate 100 mg 100 mg PO DAILY blood pressure #90 08/02/23 tablet,extended release 24 hr tabs nitroglycerin 0.3 mg sublingual 0.3 mg sublingual Q5M PRN chest 08/02/23 tablet pain #25 tabs pantoprazole 40 mg tablet,delayed 40 mg PO DAILY 30 days #30 tabs 01/08/24 release blood sugar diagnostic (FreeStyle #100 ea 01/28/24 Lite Strips) lancets 28 gauge (FreeStyle #100 ea 01/28/24 Lancets) doxycycline hyclate 100 mg capsule 100 mg PO BID infection 14 days 06/10/24 #28 caps mupirocin 2 % topical ointment 1 applic topical BID infection 14 06/10/24 days #15 grams famotidine 40 mg tablet (Pepcid) 40 mg PO DAILY #90 tabs 06/11/24 glipizide 10 mg tablet, extended 10 mg PO DAILY Diabetes #90 tabs 06/11/24 release 24 hr hydralazine 25 mg tablet 25 mg PO TID blood pressure #90 07/01/24 tabs cholecalciferol (vitamin D3) 25 50 mcg (2 x 25 mcg (1,000 unit)) 07/09/24 mcg (1,000 unit) tablet PO DAILY #90 tabs levothyroxine 25 mcg capsule 25 mcg PO DAILY #30 caps 07/09/24 colestipol 1 gram tablet 2 g (2 x 1 gram) PO .At bedtime 07/17/24 #60 tabs Allergies Allergy/AdvReac Type Severity Reaction Status Date / Time No Known Allergies Allergy Verified 07/21/24 15:24 [facility] Disclaimer: The information contained in this section may have been updated after the patient was seen, as this information can be updated by other users. Medical History Abdominal pain Dyspnea CKD stage 3 due to type 2 diabetes mellitus PVD (peripheral vascular disease) Edema of left lower extremity Wound of left foot Elevated bilirubin Typical angina Hypothyroidism Hyperkalemia Type 2 diabetes mellitus with diabetic polyneuropathy, without long-term current use of insulin Diarrhea Type 2 diabetes mellitus Decreased pulses in feet Neuropathy Anxiety HLD (hyperlipidemia) Surgical History H/O tubal ligation Hx laparoscopic cholecystectomy Family History Other No significant family history Social History Smoking Status: Never smoker alcohol intake: never substance use type: denies use current occupational status: unemployed Travel in the last 8 weeks: Inside the [place] household members: significant other housing: house current occupational exposures/hazards: No caffeine: No Other Medical History Have you received the Flu Vaccine for this season: No Have you received the Pneumonia Vaccine: No ROS Obtained: Yes All systems reviewed & no additional complaints except as documented Physical Exam General General appearance: alert and in no apparent distress Head Head exam: atraumatic and normocephalic Eye Eye exam: Present normal appearance, PERRL and EOMI ENT ENT exam: Present mucous membranes dry and normal external ear exam Neck Neck exam: Present normal inspection, full ROM and trachea midline; Absent tenderness Chest Chest inspection: Present normal inspection and symmetric chest wall rise; Absent tenderness Respiratory Respiratory exam: Present normal lung sounds bilaterally; Absent respiratory distress, wheezes, stridor or accessory muscle use Cardiovascular Cardiovascular exam: Present regular rate and normal rhythm Abdominal Exam Abdominal exam: Present soft; Absent distention, tenderness or guarding Extremities Exam Extremities exam: Present normal inspection, full ROM and normal capillary refill; Absent tenderness or edema Back Exam Back exam: Present normal inspection and full ROM; Absent tenderness Neurological Exam Neurological exam: Present alert, oriented X3, CN II-XII intact and normal gait; Absent motor sensory deficit Psychiatric Psychiatric exam: Present normal affect and normal mood Skin Skin exam: Present warm and dry Medical Decision Making Medical Records Medical records reviewed: Yes I reviewed the patient's medical records. Screening: Per USPSTF and CDC recommendations, given the prevalence of disease in our region, it is our hospital?s policy to screen for HIV and viral Hepatitis for all patients aged 18 and over and those with ongoing risk factors. George Inquiry Pt receiving controlled substance: No Vital Signs: 07/24/24 10:59 07/24/24 11:31 07/24/24 12:30 Temperature 98.5 F Temperature Source Oral Pulse Rate 73 67 Pulse Rate [Left Radial] 78 Respiratory Rate 17 17 12 Blood Pressure 149/60 H 138/59 L Blood Pressure [Right Arm] 165/76 H Blood Pressure Mean 89 Blood Pressure Mean [Right Arm] 105 Blood Pressure Source [Right Arm] Manual Cuff/ Doppler Blood Pressure Position [Right Arm] Supine 02 Sat by Pulse Oximetry 99 98 100 Oxygen Delivery Method Room Air Room Air 07/24/24 13:00 07/24/24 13:30 07/24/24 14:24 Temperature Temperature Source Pulse Rate 70 70 72 Pulse Rate [Left Radial] Respiratory Rate 13 14 15 Blood Pressure 148/64 H 159/69 H 143/64 H Blood Pressure [Right Arm] Blood Pressure Mean Blood Pressure Mean [Right Arm] Blood Pressure Source [Right Arm] Blood Pressure Position [Right Arm] 02 Sat by Pulse Oximetry 100 100 92 L Oxygen Delivery Method Room Air Room Air Room Air 07/24/24 14:30 07/24/24 15:00 07/24/24 15:30 Temperature Temperature Source Pulse Rate 74 74 73 Pulse Rate [Left Radial] Respiratory Rate 14 15 16 Blood Pressure 156/67 H 148/68 H 145/66 H Blood Pressure [Right Arm] Blood Pressure Mean Blood Pressure Mean [Right Arm] Blood Pressure Source [Right Arm] Blood Pressure Position [Right Arm] 02 Sat by Pulse Oximetry 99 98 100 Oxygen Delivery Method Room Air Room Air Room Air Lab Data Lab results reviewed: Yes I reviewed the patient's lab results. Lab Results 07/24/24 11:05: WBC 15.0 H, RBC 3.19 L, Hgb 9.4 L, Hct 29.5 L, MCV 92.5, MCH 29.5, MCHC 31.9, RDW 14.3, Plt Count 273, MPV 11.7 H, Neut % (Auto) 86.5 H, Lymph % (Auto) 9.1 L, Smyth % (Auto) 3.7, Eos % (Auto) 0.0 L, Baso % (Auto) 0.3, Neut # (Auto) 13.0 H, Lymph # (Auto) 1.4, Smyth # (Auto) 0.6, Eos # (Auto) 0.0, Baso # (Auto) 0.0, Total Counted 100, Neutrophils % (Manual) 78 H, Lymphocytes % (Manual) 20, Monocytes % (Manual) 2, Platelet Estimate Normal, RBC Morphology Normal, Sodium 140, Potassium 4.1, Chloride 121 H, Carbon Dioxide 13 L, Anion Gap 10.1, BUN 40 H, Creatinine 4.10 H, Estimated Creat Clear 12, Estimated GFR 11 L*, Est GFR ( Amer) 13 L*, Glucose 76, Calcium 8.9, Phosphorus 4.8 H, Magnesium 1.9, Total Bilirubin 0.8, AST 42 H, ALT 19, Alkaline Phosphatase 93, Troponin I 0.02, Total Protein 7.4, Albumin 4.1, Globulin 3.3 H, Albumin/Globulin Ratio 1.2, TSH 3.85, Thyroxine (T4) 8.7 07/24/24 11:44: Urine Color Yellow, Urine Appearance Sl cloudy, Urine pH 5.5, Ur Specific Scammon >= 1.030, Urine Protein 1+ A, Urine Glucose (UA) Trace, Urine Ketones Negative, Urine Blood Negative, Urine Nitrate Negative, Urine Bilirubin Negative, Urine Urobilinogen 0.2, Ur Leukocyte Esterase 1+ A, Urine RBC 3-5, Urine WBC 10-20, Ur Squamous Epith Cells 3-5, Urine Bacteria 1+ 07/24/24 11:55: SARS-CoV-2 (PCR) Not detected, Influenza A Untype (PCR) Not detected, Influenza Type B (PCR) Not detected 07/24/24 11:05 07/24/24 11:05 Orders (Tests/Meds): ED MEDICATIONS Discontinued Medications Generic Name Dose Route Start Last Admin Trade Name Freq PRN Reason Stop Dose Admin Lactated Ringer's 500 mls @ 999 mls/hr 07/24/24 11:46 07/24/24 11:52 Lactated Ringer's 500ml IV 07/24/24 12:16 999 mls/hr .Q31M ONE Administration Ceftriaxone Sodium 2 gm/ 100 mls @ 200 mls/hr 07/24/24 13:06 07/24/24 14:00 Sodium Chloride IV 07/24/24 13:35 200 mls/hr ONCE ONE Administration Ondansetron HCl 4 mg 07/24/24 11:46 07/24/24 11:52 Ondansetron 4mg/2ml Vial IV 07/24/24 11:47 4 mg ONCE ONE Administration Sodium Chloride 500 ml 07/24/24 13:06 07/24/24 14:00 Sodium Chloride 0.9% 500ml Bag IV 07/24/24 13:07 500 ml ONCE ONE Administration Tamsulosin HCl 0.4 mg 07/24/24 15:30 Tamsulosin 0.4mg Capsule PO 07/24/24 15:31 ONCE ONE ORDERS Category Date Time Status CT abdomen pelvis wo con Stat Cat Scan 07/24/24 12:[address] head/brain wo con Stat Cat Scan 07/24/24 11:44 Completed CXR --portable [XR chest portable] Stat Exams 07/24/24 11:44 Completed CBC w/Auto Diff [Complete Blood Count Auto Diff] Stat Lab 07/24/24 11:05 Completed CMP [Comprehensive Metabolic Panel] Stat Lab 07/24/24 11:05 Completed MAG [Magnesium] Stat Lab 07/24/24 11:05 Completed PHOS [Phosphorous] Stat Lab 07/24/24 11:05 Completed Rapid PCR Covid and Flu A/B Stat Lab 07/24/24 11:55 Completed T4 (Thyroxine) Stat Lab 07/24/24 11:05 Completed TSH [Thyroid Stimulating Hormone] Stat Lab 07/24/24 11:05 Completed Trop I [Troponin I] Stat Lab 07/24/24 11:05 Completed Troponin I Q3H Lab 07/24/24 17:45 Ordered UA [Urinalysis and Microscopic] Stat Lab 07/24/24 11:44 Completed Blood Culture Stat Micro 07/24/24 14:05 Received Urine Culture Stat Micro 07/24/24 11:44 Received ECG Data Tracing #1: I reviewed this ECG and interpreted as documented below: Normal sinus rhythm with a ventricular rate of 72 bpm. Left anterior fascicular block. Left ventricular hypertrophy. No acute STEMI. Normal intervals. ECG initial impression date: 07/24/24 ECG initial impression time: 11:06 Medical Decision Narrative: In summary, this patient is a 68-year-old female presenting to the Emergency Department for evaluation of general weakness and inability to walk at home. Differential diagnoses considered include but are not limited to dehydration, JAMAR, electrolyte derangements, urinary tract infection, CVA, CHF, hypothyroidism. Ruling out the most morbid conditions drove assessment. It should be noted patient's history includes hypothyroidism, CKD, diabetes which likely are not at goal therapy. This complicates all aspects of care by increasing patient's risk for morbidity. I reviewed patient's past medical records and noted colonoscopy 07/17/2024 with findings of rectal polyp and rectosigmoid polyp. Colonoscopy appears to be uncomplicated.. On exam, the patient is lying in bed in no acute distress with normal vital signs on cardiac telemetry. She has no focal neurologic deficits. Cardiopulmonary and abdominal exams are benign. Slightly dry mucous membranes. Workup included lab evaluation to evaluate for infectious, metabolic, cardiac reasons of weakness. Patient has JAMAR, leukocytosis, UTI. She does have some back pain and vomiting, so I did order a CT abdomen and pelvis without IV contrast to evaluate for potential causes of this. I independently interpreted CT scan prior to the radiologist read and noted left proximal ureteral stone. This was not read on initial radiology read, but I had an interactive discussion with him and the addended the read to include the stone. She does not have any significant hydro. Please see their read for final interpretation. Labs were obtained that demonstrated leukocytosis, JAMAR, UTI as above. Blood cultures were then sent. Patient was given a liter bolus of IV fluids but was not given full sepsis bolus given history of heart failure. She was started on IV Rocephin On reassessment, patient resting comfortably and stable. Ultimately, I feel she would benefit from transfer to higher level of care given ureteral stone, JAMAR, possible infected stone with white count and leukocyturia. I had interactive discussions with Dr. Chapman and Dr. Hector at [facility] accepted the patient for transfer. EMS transport was arranged and she was transferred in stable condition with concern for sepsis secondary to UTI, JAMAR, infected kidney stone. Critical Care Critical Care Time Critical Care Time: Yes Attestation: On 07/24/24, the high probability of a clinically significant, sudden or life threatening deterioration of the following system(s) required my full and direct attention, intervention and personal management. The time I documented below is in addition to time spent performing reported procedures but includes the following listed in this critical care notation. Total Time Total Critical Care Time: 30
[2024-07-24] MEDS: ONDANSETRON 4MG/2ML VIAL 4 MG IV (11:52)
[2024-07-24] MEDS: RINGERS SOLUTION,LACTATED 500 ML 999 ML IV (11:52)
--- NOTE | 2024-07-24 11:57 | PC.NURSE ---
XR AT BEDSIDE
[2024-07-24 11:58] LABS: Albumin Level 4.1 g/dl (3.5-5.0); Chloride 121 mmol/L (98-107); Potassium 4.1 mmoL/L (3.5-5.1); Sodium 140 mmol/L (136-145)
[2024-07-24 11:59] LABS: Coronavirus 19, PCR Not Detected (NotDetected); Influenza A, PCR Not Detected (NotDetected); Influenza B, PCR Not Detected (NotDetected)
[2024-07-24 12:01] LABS: Alanine Aminotransferase 19 U/L (12-78); Albumin/Globulin Ratio 1.2 (1.1-1.8); Alkaline Phosphatase 93 U/L (38-126); Anion Gap 10.1 mEq/L (5-15); Aspartate Amino Transferase 42 U/L (14-36); Bilirubin,Total 0.8 mg/dl (0.2-1.3); Blood Urea Nitrogen 40 mg/dl (7-17); Carbon Dioxide 13 mmol/L (22.0-30.0); Creatinine Clearance Estimated 12 mL/min (50-200); Estimated Glomerular Filt Rate 11 ml/min (>60); GFR (African American) 13 ML/MIN (>60); Globulin 3.3 g/dL (1.3-3.2); Phosphorous 4.8 mg/dl (2.5-4.5); Total Protein,Serum 7.4 g/dl (6.3-8.2)
[2024-07-24 12:02] LABS: Calcium 8.9 mg/dl (8.4-10.2); Glucose 76 mg/dl (74-100); Magnesium 1.9 mg/dl (1.6-2.3)
--- NOTE | 2024-07-24 12:06 | PC.NURSE ---
PT TO CT
[2024-07-24 12:07] LABS: Microscopic, Urine URINE MICROSCOPIC (MICROSCOPIC)
--- NOTE | 2024-07-24 12:10 | PC.NURSE ---
PT RETURNED FROM CT
--- NOTE | 2024-07-24 12:12 | PC.NURSE ---
Patient is back in the room from scans.
[2024-07-24 12:14] LABS: Troponin I 0.02 ng/ml (0.00-0.034)
[2024-07-24 12:17] LABS: Hematocrit 29.5 % (37.0-47.0); Hemoglobin 9.4 g/dL (12.2-16.2); Mean Corpuscular HGB Conc 31.9 g/dL (31.8-35.4); Mean Corpuscular Hemoglobin 29.5 pg (27.0-31.2); Mean Corpuscular Volume 92.5 fl (81-99); Mean Platelet Volume 11.7 fl (7.4-10.4); Platelet Count 273 K/mm3 (142-424); Red Blood Count 3.19 M/mm3 (4.20-5.40); Red Cell Distribution Width 14.3 % (11.5-17.5)
[2024-07-24 12:18] LABS: Basophils % 0.3 % (0.1-2.0); Lymphocytes # 1.4 K/mm3 (0.7-4.5); Lymphocytes % 9.1 % (10-50); Monocytes # 0.6 K/mm3 (0.1-1.0); Monocytes % 3.7 % (1.7-9.3); Neutrophils % 86.5 % (37.0-80.0)
[2024-07-24 12:19] LABS: MANUAL DIFFERENTIAL MANUAL DIFFERENTIAL (MANUAL DIFF)
--- NOTE | 2024-07-24 12:20 | PC.NURSE ---
CRITICAL CREAT 4.10, PT NAME AND R/V. DR HUSAIN NOTIFIED
[2024-07-24 12:31] LABS: Appearance,Urine SL CLOUDY (Clear); Bilirubin,Urine Negative (Negative); Blood, Urine Negative (Negative); Color,Urine YELLOW (Yellow); Glucose,Urine (UA) TRACE (Negative); Ketones,Urine Negative (Negative); Leukocyte Esterase,Urine 1+ (Negative); Nitrate,Urine Negative (Negative); PH,Urine 5.5 (5.0-8.5); Protein,Urine 1+ (Negative); Specific Gravity, Urine >= 1.030 (1.005-1.030); Urobilinogen,Urine 0.2 EU/dl (0.2)
[2024-07-24 12:33] LABS: Thyroid Stimulating Hormone 3.85 uIU/mL (0.465-4.68)
--- NOTE | 2024-07-24 12:41 | CT_ITS ---
FINAL REPORT TECHNIQUE: Noncontrast CT exam of the abdomen and pelvis. This study was performed with techniques to keep radiation doses as low as reasonably achievable (ALARA). Individualized dose reduction techniques using automated exposure control or adjustment of mA and/or kV according to the patient's size were employed. CLINICAL HISTORY: JAMAR on CKD, chronic abd pain COMPARISON: None FINDINGS: CT ABDOMEN AND PELVIS WITHOUT CONTRAST: Abdomen: There is no evidence of hydronephrosis or atrophy in either kidney. 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 There are tiny right sided nonobstructing renal stones present. The remainder of the solid organs are unremarkable in appearance. The gallbladder has been surgically resected. The abdominal bowel appears unremarkable. Pelvis: No distal ureteral stones are seen. There are extensive degenerated uterine fibroids with uterine enlargement. The ovaries appear unremarkable. The pelvic bowel loops are normal in appearance. The appendix is not visualized. IMPRESSION: There are no findings to account for renal failure. Extensive uterine leiomyomatosis. Minimal right nephrolithiasis. Reviewed, Interpreted and Dictated by Ilana Ortega MD Transcribed by Coby Mcdaniel Authenticated and . [facility]
[2024-07-24 12:54] LABS: Bacteria,Urine 1+ /lpf
[2024-07-24 13:03] LABS: T4 (Thyroxine) 8.7 ug/dl (5.53-11.0)
[2024-07-24 13:11] LABS: Lymphocytes % 20 % (10-50); Monocytes % 2 % (2-9); Neutrophils % 78 % (42-76); Platelet Estimate Normal; RBC Morphology Normal; Total Cells Counted 100
[2024-07-24] MEDS: SODIUM CHLORIDE 0.9% 500ML BAG 500 ML IV (14:00)
[2024-07-24] MEDS: CEFTRIAXONE SODIUM 2 GM in 0.9 % SODIUM CHLORIDE 100 ML IV (14:00)
--- NOTE | 2024-07-24 14:00 | PC.NURSE ---
Spoke with son Diego and provided update on patient status and [facility]. Provided [facility] facility phone number, and room number to son. Informed that TRN will call back when patient is leaving with transport to facility.
--- NOTE | 2024-07-24 14:10 | PC.NURSE ---
Called [facility] for a new transfer to [facility] per Dr. Mcgee. [facility] doesn't have urology in today, so [facility] is contacting meet.
--- NOTE | 2024-07-24 14:57 | PC.NURSE ---
DR HUSAIN SPEAKING WITH DR PARRA
--- NOTE | 2024-07-24 15:30 | PC.NURSE ---
DR HUSAIN SPEAKING WITH [facility]
--- NOTE | 2024-07-24 15:46 | PC.NURSE ---
Called back to [facility], will call with bed assignment. Dr Hector accepting
--- NOTE | 2024-07-24 16:00 | PC.NURSE ---
Report called to INGRID Paredes at [facility].
--- NOTE | 2024-07-27 10:44 | PC.NURSE ---
faxed urine culture results to [facility] where pt was transferred. [phone]
== END 2024-07-24 16:42 | disposition short-term general hospital (02) ==
PROVIDERS: Emergency Provider Emergency Medicine; PCP Internal Medicine
DX: N17.9 Acute kidney failure, unspecified (principal); N39.0 Urinary tract infection, site not specified; N20.1 Calculus of ureter; R53.1 Weakness; R11.2 Nausea with vomiting, unspecified
CPT/HCPCS: 70450; 71045; 74176; 80053; 81001; 83735; 84100; 84436; 84443; 84484; 85007; 85025; 85027; 87040; 87086; 87088; 87186; 87636; 93005; 96361; 96365; 96374; 99291; J0696; J2405; J7120

== ENCOUNTER 2024-07-28 10:02 | Outpatient (CLI) | payer MEDICARE, MEDICAID, SELFPAY | END 2024-07-28 23:59 | disposition home or self-care (01) | LOC: LAB.DROPOF 07-29 10:02 | PROVIDERS: PCP Nurse Practitioner; Visit Provider Nurse Practitioner | DX: I12.9 Hypertensive chronic kidney disease with stage 1 through stage 4 chronic kidney disease, or unspecified chronic kidney disease (principal); N18.4 Chronic kidney disease, stage 4 (severe); Z87.891 Personal history of nicotine dependence; E08.621 Diabetes mellitus due to underlying condition with foot ulcer; L97.521 Non-pressure chronic ulcer of other part of left foot limited to breakdown of skin; B95.7 Other staphylococcus as the cause of diseases classified elsewhere | CPT/HCPCS: 87070; 87077; 87186; 87205 ==

== ENCOUNTER 2024-07-30 12:35 | Emergency (ER) | payer MEDICARE, MEDICAID, SELFPAY ==
[2024-07-30] VITALS (10 sets, daily range): BP systolic 150–207; BP diastolic 69–99; PULSE 84–89; RESP 16–18; TEMP 36.5; O2SAT 99–100; BMI 24.3
--- NOTE | 2024-07-30 13:27 | ED_ITS ---
Discharge Plan Disposition Patient Disposition: Home, Self-Care Condition: Good Prescriptions Prescriptions: New metoclopramide HCl [Reglan] 5 mg tablet 5 mg PO Q6H PRN (Reason: nausea and vomiting) Qty: 12 0RF No Action atorvastatin 40 mg tablet 40 mg PO HS Qty: 90 3RF metoprolol succinate 100 mg tablet extended release 24 hr 100 mg PO DAILY Qty: 90 3RF nitroglycerin 0.3 mg tablet, sublingual 0.3 mg sublingual Q5M PRN (Reason: chest pain) Qty: 25 0RF Rx Instructions: do not exceed 3 doses per episode (DME) Veronique Ultra Briefs-Medium Misc See Rx Instructions .Route Qty: 80 0RF Rx Instructions: As directed sodium bicarbonate 650 mg tablet 650 mg PO BID dapagliflozin propanediol [Farxiga] 5 mg tablet 5 mg PO DAILY glipizide 10 mg tablet extended release 24hr 10 mg PO DAILY Qty: 90 3RF famotidine [Pepcid] 40 mg tablet 40 mg PO DAILY Qty: 90 3RF levothyroxine 25 mcg capsule 25 mcg PO DAILY Qty: 30 2RF cholecalciferol (vitamin D3) 25 mcg (1,000 unit) tablet 50 mcg PO DAILY Qty: 90 3RF hydralazine 25 mg tablet 25 mg PO TID Qty: 90 3RF (DME) lancets [FreeStyle Lancets] 28 gauge misc See Rx Instructions .Route Qty: 100 5RF Rx Instructions: bid testing. e11.9 mupirocin 2 % ointment 1 applic topical BID 14 Days Qty: 15 0RF doxycycline hyclate 100 mg capsule 100 mg PO BID 14 Days Qty: 28 0RF ferrous sulfate 325 mg (65 mg iron) tablet 325 mg PO DAILY (DME) FreeStyle Lite Strips Strip See Rx Instructions .Route Qty: 100 5RF Rx Instructions: tests BID diphenoxylate-atropine [Lomotil] 2.5-0.025 mg tablet 1 tab PO Q8HP PRN (Reason: diarrhea) pantoprazole 40 mg Tablet,Delayed Release (Dr/Ec) 40 mg PO DAILY 30 Days Qty: 30 0RF colestipol 1 gram tablet 2 g PO .At bedtime Qty: 60 12RF Rx Instructions: 2 tablets p.o. nightly Referrals Follow up/Referrals: Maldonado Parker DO [Primary Care Provider] - See instructions Activity Restrictions/Add. Instructions Additional Instructions/Restrictions: You were evaluated in the emergency department today. Please follow-up very closely with your primary care provider. Stay hydrated. Eat a bland diet. rn occupational health your prescription for Reglan to take as needed for nausea and vomiting. Return to the emergency department for new or worsening symptoms. Clinical Impressions Clinical Impression: Vomiting Instructions Patient Instructions: DI for Acute Abdominal Pain, DI for Nausea -- Adult Print Language Print Language: Greek Discharge ED Provider: Onel Taylor General Adult HPI <Onel Taylor MD - Last Filed: 07/30/24 14:54> General Chief complaint: Abdominal Pain Stated complaint: vomiting Time Seen by Provider: 07/30/24 13:19 Mode of Arrival: Wheelchair Source of Information: Patient Limitations: No Limitations Description of Symptoms (Recalled from ER Triage Doc. by RN): PT REPORTS DIFFUSE ABDOMINAL PAIN AND VOMITING THIS AM History of Present Illness HPI narrative: Patient is a 68-year-old female who presents to the emergency department for evaluation of vomiting. Onset was acute, over the last 24 hours. She states that she has a kidney stone that was transferred to another hospital which they looked at me and then decided not to do anything and discharged me . She was not discharged home with any medications and she has been doing well since her discharge. She has had vomiting predominantly over the course of the morning that is nonbloody. She does not have any abdominal pain reported to me and states that she has not had abdominal pain. Rather her inability to tolerate p.o. is what is causing her to present for continued evaluation. No flank pain, no back pain, no dysuria. No other acute complaints at this time. Related Data Home Medications ?Medication ?Instructions ?Recorded ?Confirmed ferrous sulfate 325 mg (65 mg 325 mg PO DAILY 06/06/23 07/28/24 iron) tablet diphenoxylate-atropine 2.5 1 tab PO Q8HP PRN diarrhea 01/07/24 07/28/24 mg-0.025 mg tablet (Lomotil) dapagliflozin propanediol 5 mg 5 mg PO DAILY 05/13/24 07/28/24 tablet (Farxiga) sodium bicarbonate 650 mg tablet 650 mg PO BID 05/13/24 07/28/24 Previous Rx's ?Medication ?Instructions ?Recorded atorvastatin 40 mg tablet 40 mg PO HS High cholesterol #90 08/02/23 tabs diaper,brief,adult,disposable #80 ea 08/02/23 (Veronique Ultra Briefs-Medium) metoprolol succinate 100 mg 100 mg PO DAILY blood pressure #90 08/02/23 tablet,extended release 24 hr tabs nitroglycerin 0.3 mg sublingual 0.3 mg sublingual Q5M PRN chest 08/02/23 tablet pain #25 tabs pantoprazole 40 mg tablet,delayed 40 mg PO DAILY 30 days #30 tabs 01/08/24 release blood sugar diagnostic (FreeStyle #100 ea 01/28/24 Lite Strips) famotidine 40 mg tablet (Pepcid) 40 mg PO DAILY #90 tabs 06/11/24 glipizide 10 mg tablet, extended 10 mg PO DAILY Diabetes #90 tabs 06/11/24 release 24 hr hydralazine 25 mg tablet 25 mg PO TID blood pressure #90 07/01/24 tabs cholecalciferol (vitamin D3) 25 50 mcg (2 x 25 mcg (1,000 unit)) 07/09/24 mcg (1,000 unit) tablet PO DAILY #90 tabs levothyroxine 25 mcg capsule 25 mcg PO DAILY #30 caps 07/09/24 colestipol 1 gram tablet 2 g (2 x 1 gram) PO .At bedtime 07/17/24 #60 tabs doxycycline hyclate 100 mg capsule 100 mg PO BID infection 14 days 07/28/24 #28 caps lancets 28 gauge (FreeStyle #100 ea 07/28/24 Lancets) mupirocin 2 % topical ointment 1 applic topical BID infection 14 07/28/24 days #15 grams metoclopramide HCl 5 mg tablet 5 mg PO Q6H PRN nausea and 07/30/24 (Reglan) vomiting #12 tabs Allergies Allergy/AdvReac Type Severity Reaction Status Date / Time No Known Allergies Allergy Verified 07/28/24 09:55 [facility] <Onel Taylor MD - Last Filed: 07/30/24 14:54> [facility] Disclaimer: The information contained in this section may have been updated after the patient was seen, as this information can be updated by other users. Medical History Abdominal pain Dyspnea CKD stage 3 due to type 2 diabetes mellitus PVD (peripheral vascular disease) Edema of left lower extremity Wound of left foot Elevated bilirubin Typical angina Hypothyroidism Hyperkalemia Type 2 diabetes mellitus with diabetic polyneuropathy, without long-term current use of insulin Diarrhea Type 2 diabetes mellitus Decreased pulses in feet Neuropathy Anxiety HLD (hyperlipidemia) Surgical History H/O tubal ligation Hx laparoscopic cholecystectomy Family History Other No significant family history Social History Smoking Status: Never smoker alcohol intake: never substance use type: denies use current occupational status: unemployed Travel in the last 8 weeks: Inside the [facility] household members: significant other housing: house current occupational exposures/hazards: No caffeine: No Have you lived/traveled outside [place] in past 30 days?: No Contact w/someone who lives/traveled outside US past 30 days?: No Exposure to someone with infectious disease in past 14 days?: No Do you have a fever (greater than 100.4 F or 38 C)?: No Have you tested positive for COVID-19: No Exposed to someone with COVID-19 in past 14 days?: No Do you have a sore throat?: No Do you have a cough?: No Do you have any weakness?: No Do you have any diarrhea?: No Are you experiencing any unusual bleeding?: No Do you have any muscle aches/pain?: No Do you have any abdominal pain?: No Are you experiencing loss of taste or smell?: No Other Medical History Have you received the Flu Vaccine for this season: No Have you received the Pneumonia Vaccine: Yes <Onel Taylor MD - Last Filed: 07/30/24 14:54> ROS Obtained: Yes Systems reviewed as appropriate & no additional complaints except as documented Physical Exam <Onel Taylor MD - Last Filed: 07/30/24 14:54> General General appearance: alert and in no apparent distress Head Head exam: atraumatic and normocephalic Eye Eye exam: Present PERRL ENT ENT exam: Present mucous membranes moist Neck Neck exam: Present normal inspection Chest Chest inspection: Present normal inspection and symmetric chest wall rise Respiratory Respiratory exam: Present normal lung sounds bilaterally; Absent respiratory distress Cardiovascular Cardiovascular exam: Present regular rate and normal rhythm Abdominal Exam Abdominal exam: Present soft; Absent tenderness, guarding or rebound Extremities Exam Extremities exam: Present normal inspection Neurological Exam Neurological exam: Present alert Psychiatric Psychiatric exam: Present normal affect Skin Skin exam: Present warm and dry Medical Decision Making <Onel Taylor MD - Last Filed: 07/30/24 14:54> Medical Records Screening: Per USPSTF and CDC recommendations, given the prevalence of disease in our region, it is our hospital?s policy to screen for HIV and viral Hepatitis for all patients aged 18 and over and those with ongoing risk factors. George Inquiry Pt receiving controlled substance: No Vital Signs: 07/30/24 12:35 07/30/24 13:30 07/30/24 13:55 Temperature 97.7 F Temperature Source Oral Pulse Rate 86 86 Pulse Rate [Radial] 89 Respiratory Rate 18 Blood Pressure 207/99 H 190/95 H Blood Pressure [Right Arm] 192/88 H Blood Pressure Mean Blood Pressure Mean [Right Arm] 122 Blood Pressure Source [Right Arm] Automatic Cuff Blood Pressure Position [Right Arm] Sitting 02 Sat by Pulse Oximetry 100 99 99 Oxygen Delivery Method Room Air Room Air Room Air 07/30/24 14:00 07/30/24 14:30 07/30/24 14:54 Temperature Temperature Source Pulse Rate 85 84 86 Pulse Rate [Radial] Respiratory Rate Blood Pressure 198/93 H 193/92 H Blood Pressure [Right Arm] Blood Pressure Mean Blood Pressure Mean [Right Arm] Blood Pressure Source [Right Arm] Blood Pressure Position [Right Arm] 02 Sat by Pulse Oximetry 99 99 99 Oxygen Delivery Method Room Air Room Air Room Air 07/30/24 15:30 07/30/24 16:00 07/30/24 16:31 Temperature Temperature Source Pulse Rate 86 Pulse Rate [Radial] Respiratory Rate Blood Pressure 201/96 H 192/91 H 150/69 H Blood Pressure [Right Arm] Blood Pressure Mean 115 107 96 Blood Pressure Mean [Right Arm] Blood Pressure Source [Right Arm] Blood Pressure Position [Right Arm] 02 Sat by Pulse Oximetry 100 Oxygen Delivery Method Room Air 07/30/24 16:40 Temperature 97.7 F Temperature Source Pulse Rate 88 Pulse Rate [Radial] Respiratory Rate 16 Blood Pressure 150/69 H Blood Pressure [Right Arm] Blood Pressure Mean Blood Pressure Mean [Right Arm] Blood Pressure Source [Right Arm] Blood Pressure Position [Right Arm] 02 Sat by Pulse Oximetry Oxygen Delivery Method Room Air Lab Data Lab Results 07/30/24 13:01: Sodium 136, Potassium 3.8, Chloride 113 H, Carbon Dioxide 17 L, Anion Gap 9.8, BUN 28 H, Creatinine 3.00 H, Estimated Creat Clear 18, Estimated GFR 16 L*, Est GFR ( Amer) 19 L*, Glucose 83, Calcium 8.8, Total Bilirubin 1.1, AST 37 H, ALT 24, Alkaline Phosphatase 95, Total Protein 7.0, Albumin 3.9, Globulin 3.1, Albumin/Globulin Ratio 1.3, Lipase 94 07/30/24 13:32: SARS-CoV-2 (PCR) Not detected, Influenza A Untype (PCR) Not detected, Influenza Type B (PCR) Not detected 07/30/24 14:08: WBC 14.6 H, RBC 3.46 L, Hgb 9.8 L, Hct 29.8 L, MCV 86.1, MCH 28.3, MCHC 32.9, RDW 15.8, Plt Count 217, MPV 11.9 H, Neut % (Auto) 89.6 H, L ymph % (Auto) 7.1 L, [place] % (Auto) 2.5, Eos % (Auto) 0.0 L, Baso % (Auto) 0.3, N eut # (Auto) 13.0 H, Lymph # (Auto) 1.0, [place] # (Auto) 0.4, Eos # (Auto) 0.0, Baso # (Auto) 0.1, Total Counted 100, Neutrophils % (Manual) 89 H, Band Neutrophils % 1.0, Lymphocytes % (Manual) 9 L, Basophils % (Manual) 1.0, Platelet Estimate Normal, RBC Morphology Normal 07/30/24 15:01: Urine Color Yellow, Urine Appearance Cloudy, Urine pH 5.5, Ur Specific [place] 1.020, Urine Protein 1+ A, Urine Glucose (UA) Trace, Urine Ketones Negative, Urine Blood Trace-i, Urine Nitrate Negative, Urine Bilirubin Negative, Urine Urobilinogen 0.2, Ur Leukocyte Esterase Trace, Urine RBC Occasional, Urine WBC 3-5, Ur Squamous Epith Cells 10-20, Urine Bacteria 2+ 07/30/24 14:08 07/30/24 13:01 Orders (Tests/Meds): ED MEDICATIONS Discontinued Medications Generic Name Dose Route Start Last Admin Trade Name Roger PRN Reason Stop Dose Admin Hydralazine HCl 25 mg 07/30/24 13:27 07/30/24 14:10 Hydralazine Hcl 25mg Tablet PO 07/30/24 13:28 25 mg ONCE ONE Administration Metoclopramide HCl 10 mg 07/30/24 16:24 07/30/24 16:31 Metoclopramide Hcl 10mg/2ml Vial IVP 07/30/24 16:25 10 mg ONCE ONE Administration Ondansetron HCl 4 mg 07/30/24 13:26 07/30/24 13:55 Ondansetron 4mg/2ml Vial IV 07/30/24 13:27 4 mg ONCE ONE Administration ORDERS Category Date Time Status CBC w/Auto Diff [Complete Blood Count Auto Diff] Stat Lab 07/30/24 14:08 Completed CMP [Comprehensive Metabolic Panel] Stat Lab 07/30/24 13:01 Completed Lipase Stat Lab 07/30/24 13:01 Completed Rapid PCR Covid and Flu A/B Stat Lab 07/30/24 13:32 Completed UA [Urinalysis and Microscopic] Stat Lab 07/30/24 15:01 Completed Urine Culture Stat Micro 07/30/24 15:01 Received Medical Decision Narrative: In summary patient is 68-year-old female past medical history described above who presents emergency department for evaluation of vomiting. Patient is hemodynamically stable nontoxic-appearing upon arrival, afebrile. Patient denies abdominal pain to me and has a benign abdominal exam and is nontender. Differential for vomiting includes viral syndrome, pancreatitis, urinary tract infection, among others. I do not think that vomiting is coming from her ureteral stone given that she has no paroxysmal pain whatsoever. CT imaging to assess migration of stone was considered but will be deferred at this time. Workup we conducted with hematologic labs, urinalysis, viral swab. Initial inventions include Zofran. Initial workup reviewed by me, leukocytosis 14.6 slightly downtrending from prior. Creatinine is improving from previous, no critical electrolyte abnormality, lipase normal. Urinalysis and p.o. trial pending at time of transition of care to the oncoming physician, Dr. Mcgee. <Jazmine N Everardo, DO - Last Filed: 07/30/24 22:07> Vital Signs: 07/30/24 12:35 07/30/24 13:30 07/30/24 13:55 Temperature 97.7 F Temperature Source Oral Pulse Rate 86 86 Pulse Rate [Radial] 89 Respiratory Rate 18 Blood Pressure 207/99 H 190/95 H Blood Pressure [Right Arm] 192/88 H Blood Pressure Mean Blood Pressure Mean [Right Arm] 122 Blood Pressure Source [Right Arm] Automatic Cuff Blood Pressure Position [Right Arm] Sitting 02 Sat by Pulse Oximetry 100 99 99 Oxygen Delivery Method Room Air Room Air Room Air 07/30/24 14:00 07/30/24 14:30 07/30/24 14:54 Temperature Temperature Source Pulse Rate 85 84 86 Pulse Rate [Radial] Respiratory Rate Blood Pressure 198/93 H 193/92 H Blood Pressure [Right Arm] Blood Pressure Mean Blood Pressure Mean [Right Arm] Blood Pressure Source [Right Arm] Blood Pressure Position [Right Arm] 02 Sat by Pulse Oximetry 99 99 99 Oxygen Delivery Method Room Air Room Air Room Air 07/30/24 15:30 07/30/24 16:00 07/30/24 16:31 Temperature Temperature Source Pulse Rate 86 Pulse Rate [Radial] Respiratory Rate Blood Pressure 201/96 H 192/91 H 150/69 H Blood Pressure [Right Arm] Blood Pressure Mean 115 107 96 Blood Pressure Mean [Right Arm] Blood Pressure Source [Right Arm] Blood Pressure Position [Right Arm] 02 Sat by Pulse Oximetry 100 Oxygen Delivery Method Room Air 07/30/24 16:40 Temperature 97.7 F Temperature Source Pulse Rate 88 Pulse Rate [Radial] Respiratory Rate 16 Blood Pressure 150/69 H Blood Pressure [Right Arm] Blood Pressure Mean Blood Pressure Mean [Right Arm] Blood Pressure Source [Right Arm] Blood Pressure Position [Right Arm] 02 Sat by Pulse Oximetry Oxygen Delivery Method Room Air Lab Data Lab Results 07/30/24 13:01: Sodium 136, Potassium 3.8, Chloride 113 H, Carbon Dioxide 17 L, Anion Gap 9.8, BUN 28 H, Creatinine 3.00 H, Estimated Creat Clear 18, Estimated GFR 16 L*, Est GFR ( Amer) 19 L*, Glucose 83, Calcium 8.8, Total Bilirubin 1.1, AST 37 H, ALT 24, Alkaline Phosphatase 95, Total Protein 7.0, Albumin 3.9, Globulin 3.1, Albumin/Globulin Ratio 1.3, Lipase 94 07/30/24 13:32: SARS-CoV-2 (PCR) Not detected, Influenza A Untype (PCR) Not detected, Influenza Type B (PCR) Not detected 07/30/24 14:08: WBC 14.6 H, RBC 3.46 L, Hgb 9.8 L, Hct 29.8 L, MCV 86.1, MCH 28.3, MCHC 32.9, RDW 15.8, Plt Count 217, MPV 11.9 H, Neut % (Auto) 89.6 H, L ymph % (Auto) 7.1 L, [place] % (Auto) 2.5, Eos % (Auto) 0.0 L, Baso % (Auto) 0.3, N eut # (Auto) 13.0 H, Lymph # (Auto) 1.0, [place] # (Auto) 0.4, Eos # (Auto) 0.0, Baso # (Auto) 0.1, Total Counted 100, Neutrophils % (Manual) 89 H, Band Neutrophils % 1.0, Lymphocytes % (Manual) 9 L, Basophils % (Manual) 1.0, Platelet Estimate Normal, RBC Morphology Normal 07/30/24 15:01: Urine Color Yellow, Urine Appearance Cloudy, Urine pH 5.5, Ur Specific [place] 1.020, Urine Protein 1+ A, Urine Glucose (UA) Trace, Urine Ketones Negative, Urine Blood Trace-i, Urine Nitrate Negative, Urine Bilirubin Negative, Urine Urobilinogen 0.2, Ur Leukocyte Esterase Trace, Urine RBC Occasional, Urine WBC 3-5, Ur Squamous Epith Cells 10-20, Urine Bacteria 2+ Orders (Tests/Meds): ED MEDICATIONS Discontinued Medications Generic Name Dose Route Start Last Admin Trade Name Freq PRN Reason Stop Dose Admin Hydralazine HCl 25 mg 07/30/24 13:27 07/30/24 14:10 Hydralazine Hcl 25mg Tablet PO 07/30/24 13:28 25 mg ONCE ONE Administration Metoclopramide HCl 10 mg 07/30/24 16:24 07/30/24 16:31 Metoclopramide Hcl 10mg/2ml Vial IVP 07/30/24 16:25 10 mg ONCE ONE Administration Ondansetron HCl 4 mg 07/30/24 13:26 07/30/24 13:55 Ondansetron 4mg/2ml Vial IV 07/30/24 13:27 4 mg ONCE ONE Administration ORDERS Category Date Time Status CBC w/Auto Diff [Complete Blood Count Auto Diff] Stat Lab 07/30/24 14:08 Completed CMP [Comprehensive Metabolic Panel] Stat Lab 07/30/24 13:01 Completed Lipase Stat Lab 07/30/24 13:01 Completed Rapid PCR Covid and Flu A/B Stat Lab 07/30/24 13:32 Completed UA [Urinalysis and Microscopic] Stat Lab 07/30/24 15:01 Completed Urine Culture Stat Micro 07/30/24 15:01 Received Medical Decision Narrative: In summary patient is 68-year-old female past medical history described above who presents emergency department for evaluation of vomiting. Patient is hemodynamically stable nontoxic-appearing upon arrival, afebrile. Patient denies abdominal pain to me and has a benign abdominal exam and is nontender. Differential for vomiting includes viral syndrome, pancreatitis, urinary tract infection, among others. I do not think that vomiting is coming from her ureteral stone given that she has no paroxysmal pain whatsoever. CT imaging to assess migration of stone was considered but will be deferred at this time. Workup we conducted with hematologic labs, urinalysis, viral swab. Initial inventions include Zofran. Initial workup reviewed by me, leukocytosis 14.6 slightly downtrending from prior. Creatinine is improving from previous, no critical electrolyte abnormality, lipase normal. Urinalysis and p.o. trial pending at time of transition of care to the oncoming physician, Dr. Mcgee. Everardo, DO: On my assessment of the patient, she is resting comfortably in bed. She states she still feels a little bit sick to her stomach but is tolerated oral intake without recurrence of vomiting. She was given Reglan for continued nausea. At this time, symptoms are better and I feel that she is appropriate for discharge home with prescription for Reglan and instructions for supportive management. Labs and urine are reassuring without acute concerns, as everything seems to be improving. Strict return precautions were given as well as instructions for close outpatient follow-up. Critical Care <Onel Taylor MD - Last Filed: 07/30/24 14:54> Critical Care Time Critical Care Time: No
--- NOTE | 2024-07-30 13:32 | PC.NURSE ---
Called [facility] per Dr Taylor to see if we could get pts records sent over from where she was a patient there
--- NOTE | 2024-07-30 13:34 | PC.NURSE ---
PT WAS RECEIVED A WARM BLANKET
[2024-07-30 13:38] LABS: Albumin Level 3.9 g/dl (3.5-5.0); Chloride 113 mmol/L (98-107)
[2024-07-30 13:39] LABS: Potassium 3.8 mmoL/L (3.5-5.1); Sodium 136 mmol/L (136-145)
[2024-07-30 13:39] LABS: Coronavirus 19, PCR Not Detected (NotDetected); Influenza A, PCR Not Detected (NotDetected); Influenza B, PCR Not Detected (NotDetected)
[2024-07-30 13:41] LABS: Alanine Aminotransferase 24 U/L (12-78); Albumin/Globulin Ratio 1.3 (1.1-1.8); Alkaline Phosphatase 95 U/L (38-126); Anion Gap 9.8 mEq/L (5-15); Aspartate Amino Transferase 37 U/L (14-36); Bilirubin,Total 1.1 mg/dl (0.2-1.3); Blood Urea Nitrogen 28 mg/dl (7-17); Carbon Dioxide 17 mmol/L (22.0-30.0); Creatinine Clearance Estimated 18 mL/min (50-200); Estimated Glomerular Filt Rate 16 ml/min (>60); GFR (African American) 19 ML/MIN (>60); Globulin 3.1 g/dL (1.3-3.2); Lipase 94 U/L (23-300)
[2024-07-30 13:42] LABS: Calcium 8.8 mg/dl (8.4-10.2); Glucose 83 mg/dl (74-100)
[2024-07-30] MEDS: ONDANSETRON 4MG/2ML VIAL 4 MG IV (13:55)
[2024-07-30] MEDS: HYDRALAZINE HCL 25MG TABLET 25 MG PO (14:10)
[2024-07-30 14:45] LABS: Basophils # 0.1 K/mm3 (0-0.2); Basophils % 0.3 % (0.1-2.0); Hematocrit 29.8 % (37.0-47.0); Hemoglobin 9.8 g/dL (12.2-16.2); Lymphocytes % 7.1 % (10-50); Mean Corpuscular HGB Conc 32.9 g/dL (31.8-35.4); Mean Corpuscular Hemoglobin 28.3 pg (27.0-31.2); Mean Corpuscular Volume 86.1 fl (81-99); Mean Platelet Volume 11.9 fl (7.4-10.4); Monocytes # 0.4 K/mm3 (0.1-1.0); Monocytes % 2.5 % (1.7-9.3); Neutrophils % 89.6 % (37.0-80.0); Platelet Count 217 K/mm3 (142-424); Red Blood Count 3.46 M/mm3 (4.20-5.40); Red Cell Distribution Width 15.8 % (11.5-17.5); White Blood Count 14.6 K/mm3 (4.8-10.8)
[2024-07-30 14:47] LABS: MANUAL DIFFERENTIAL MANUAL DIFFERENTIAL (MANUAL DIFF)
[2024-07-30 15:07] LABS: Microscopic, Urine URINE MICROSCOPIC (MICROSCOPIC)
[2024-07-30 15:09] LABS: Appearance,Urine CLOUDY (Clear); Bilirubin,Urine Negative (Negative); Blood, Urine TRACE-I (Negative); Color,Urine YELLOW (Yellow); Glucose,Urine (UA) TRACE (Negative); Ketones,Urine Negative (Negative); Leukocyte Esterase,Urine TRACE (Negative); Nitrate,Urine Negative (Negative); PH,Urine 5.5 (5.0-8.5); Protein,Urine 1+ (Negative); Urobilinogen,Urine 0.2 EU/dl (0.2)
[2024-07-30 15:18] LABS: Bacteria,Urine 2+ /lpf; RBC,Urine Occasional #/hpf (0-3)
[2024-07-30 15:38] LABS: Lymphocytes % 9 % (10-50); Neutrophils % 89 % (42-76); Total Cells Counted 100
[2024-07-30 15:39] LABS: Platelet Estimate Normal; RBC Morphology Normal
[2024-07-30] MEDS: METOCLOPRAMIDE HCL 10MG/2ML VIAL 10 MG IVP (16:31)
== END 2024-07-30 16:41 | disposition home or self-care (01) ==
PROVIDERS: Emergency Provider Emergency Medicine; PCP Internal Medicine
DX: R11.10 Vomiting, unspecified (principal)
CPT/HCPCS: 80053; 81001; 83690; 85007; 85025; 85027; 87086; 87636; 96374; 96375; 99283; J2405; J2765

== ENCOUNTER 2024-08-09 09:55 | Observation (INO) | payer MEDICARE, MEDICAID, SELFPAY ==
[2024-08-09] VITALS (15 sets, daily range): BP systolic 143–209; BP diastolic 69–113; PULSE 64–79; RESP 11–19; TEMP 34.2–37.3; O2SAT 96–100; BMI 22.3
--- NOTE | 2024-08-09 10:07 | XR_ITS ---
PROCEDURE INFORMATION: Exam: XR Chest Exam date and time: 08/09/2024 10:42 AM Age: 68 years old Clinical indication: Dyspnea TECHNIQUE: Imaging protocol: Radiologic exam of the chest. Views: 1 view. COMPARISON: CR XR CHEST PORTABLE 07/24/2024 11:51 AM FINDINGS: Lungs: No evidence of pneumonia or interstitial edema. Pleural spaces: Unremarkable. No pleural effusion. No pneumothorax. Heart/Mediastinum: Unremarkable. No cardiomegaly. Bones/joints: Unremarkable. IMPRESSION: No evidence of pneumonia or interstitial edema.
--- NOTE | 2024-08-09 10:07 | ECG_ITS ---
APPROVED REPORT Exam: Resting ECG HR:81 bpm ECG Measurements Heart Rate 81 AXES IA 179 P 64 QRSd 86 QRS -64 QT 381 T 83 QTc 418 Conclusion SINUS RHYTHM LEFT AXIS DEVIATION [QRS AXIS < -30] MINIMAL VOLTAGE CRITERIA FOR LVH, CONSIDER NORMAL VARIANT [MEETS CRITERIA IN ONE OF: R(aVL), S(V1), R(V5), R(V5/V6)+S(V1)] SEPTAL MYOCARDIAL INFARCTION , OF INDETERMINATE AGE [40+ ms Q WAVE IN V1/V2] ABNORMAL ECG UNCONFIRMED REPORT Electronically signed by : Manuel Anders, 08/09/2024 16:13:31
--- NOTE | 2024-08-09 10:07 | CT_ITS ---
PROCEDURE INFORMATION: Exam: CT Abdomen And Pelvis Without Contrast Exam date and time: 08/09/2024 10:39 AM Age: 68 years old Clinical indication: Other: Concern for sepsis, recent left kidney stone TECHNIQUE: Imaging protocol: Computed tomography of the abdomen and pelvis without contrast. Radiation optimization: All CT scans at this facility use at least one of these dose optimization techniques: automated exposure control; mA and/or kV adjustment per patient size (includes targeted exams where dose is matched to clinical indication); or iterative reconstruction. COMPARISON: CT ABDOMEN PELVIS WO CON 07/24/2024 1:03 PM FINDINGS: Limitations: The absence of intravenous contrast limits the assessment of vascular structures, lesions and lymphadenopathy. Lungs: Lung bases are unremarkable. Liver: No focal hepatic lesions within the limits of noncontrast examination. Gallbladder and biliary ducts: There has been a cholecystectomy. Pancreas: No peripancreatic fluid stranding. No main pancreatic ductal dilation. Spleen: Multiple splenic granulomas. No splenomegaly. Adrenal glands: The adrenal glands are normal. Kidneys and ureters: No nephrolithiasis or hydroureteronephrosis on either side. Left ureteral calculus has passed. Stomach and bowel: No bowel wall thickening or distention. Appendix: A normal appendix is identified. Intraperitoneal space: There is no evidence of free intraperitoneal or pelvic fluid. Vasculature: The aorta demonstrates mild atherosclerotic calcification. Lymph nodes: No evidence of retroperitoneal or mesenteric lymphadenopathy. Urinary bladder: Unremarkable as visualized. Reproductive: Multi fibroid uterus noted. Bones/joints: Unremarkable. No acute fracture. Soft tissues: Unremarkable. IMPRESSION: 1. No nephrolithiasis or hydroureteronephrosis on either side. Left ureteral calculus has passed. 2. No evidence of infectious source in the abdomen or pelvis. 3. Multi fibroid uterus.
--- NOTE | 2024-08-09 10:10 | ED_ITS ---
Discharge Plan Disposition Patient Disposition: Admitted Chief Complaint: Hyper/Hypoglycemia Prescriptions Prescriptions: No Action atorvastatin 40 mg tablet 40 mg PO HS Qty: 90 3RF metoprolol succinate 100 mg tablet extended release 24 hr 100 mg PO DAILY Qty: 90 3RF nitroglycerin 0.3 mg tablet, sublingual 0.3 mg sublingual Q5M PRN (Reason: chest pain) Qty: 25 0RF Rx Instructions: do not exceed 3 doses per episode (DME) [place] [facility] [place] .Route Qty: 80 0RF Rx Instructions: As directed sodium bicarbonate 650 mg tablet 650 mg PO BID dapagliflozin propanediol [Farxiga] 5 mg tablet 5 mg PO DAILY glipizide 10 mg tablet extended release 24hr 10 mg PO DAILY Qty: 90 3RF famotidine [Pepcid] 40 mg tablet 40 mg PO DAILY Qty: 90 3RF levothyroxine 25 mcg capsule 25 mcg PO DAILY Qty: 30 2RF cholecalciferol (vitamin D3) 25 mcg (1,000 unit) tablet 50 mcg PO DAILY Qty: 90 3RF hydralazine 25 mg tablet 25 mg PO TID Qty: 90 3RF (DME) lancets [FreeStyle [facility]ets] [facility] See Rx Instructions .Route Qty: 100 5RF Rx Instructions: bid testing. e11.9 mupirocin 2 % ointment 1 applic topical BID 14 Days Qty: 15 0RF doxycycline hyclate 100 mg capsule 100 mg PO BID 14 Days Qty: 28 0RF ferrous sulfate 325 mg (65 mg iron) tablet 325 mg PO DAILY (DME) FreeStyle Lite Strips Strip See Rx Instructions .Route Qty: 100 5RF Rx Instructions: tests BID metoclopramide HCl [Reglan] 5 mg tablet 5 mg PO Q6H PRN (Reason: nausea and vomiting) Qty: 12 0RF diphenoxylate-atropine [Lomotil] 2.5-0.025 mg tablet 1 tab PO Q8HP PRN (Reason: diarrhea) pantoprazole 40 mg Tablet,Delayed Release (Dr/Ec) 40 mg PO DAILY 30 Days Qty: 30 0RF colestipol 1 gram tablet 2 g PO .At bedtime Qty: 60 12RF Rx Instructions: 2 tablets p.o. nightly Referrals Follow up/Referrals: Provider,Referral, MD [Referring] - See instructions Clinical Impressions Clinical Impression: Syncope, Hypothermia, Metabolic acidosis, CKD (chronic kidney disease) Instructions Patient Instructions: DI for Hyperglycemia -- Adult Print Language Print Language: Sinhala Discharge ED Provider: Dustin Anders General Adult HPI General Chief complaint: Hyper/Hypoglycemia Stated complaint: SYNCOPE,POSS SUGAR Time Seen by Provider: 08/09/24 10:05 History of Present Illness HPI narrative: Patient is a 68-year-old female brought in today after a possible syncopal episode found down by her brother as well as hypothermia. The patient states that she remembers go to the bathroom but next and she knows she was on the floor being woken up by her brother she does not recall any events that led to this. She had no chest pain shortness of breath etc. Other than feeling very cold she denies any complaints. She was recently in the hospital at [facility] she was seen here on the diagnosed with acute kidney injury urinary tract infection had a left proximal ureteral obstructing stone. She states that she never had any surgical intervention I think I still have it and was supposed to follow-up outpatient. She denies any other symptoms associated with this at the moment. Also denies all other infectious type symptoms. Related Data Home Medications ?Medication ?Instructions ?Recorded ?Confirmed ferrous sulfate 325 mg (65 mg 325 mg PO DAILY 06/06/23 07/28/24 iron) tablet diphenoxylate-atropine 2.5 1 tab PO Q8HP PRN diarrhea 01/07/24 07/28/24 mg-0.025 mg tablet (Lomotil) dapagliflozin propanediol 5 mg 5 mg PO DAILY 05/13/24 07/28/24 tablet (Farxiga) sodium bicarbonate 650 mg tablet 650 mg PO BID 05/13/24 07/28/24 Previous Rx's ?Medication ?Instructions ?Recorded atorvastatin 40 mg tablet 40 mg PO HS High cholesterol #90 08/02/23 tabs diaper,brief,adult,disposable #80 ea 08/02/23 (Veronique Ultra Briefs-Medium) metoprolol succinate 100 mg 100 mg PO DAILY blood pressure #90 08/02/23 tablet,extended release 24 hr tabs nitroglycerin 0.3 mg sublingual 0.3 mg sublingual Q5M PRN chest 08/02/23 tablet pain #25 tabs pantoprazole 40 mg tablet,delayed 40 mg PO DAILY 30 days #30 tabs 01/08/24 release blood sugar diagnostic (FreeStyle #100 ea 01/28/24 Lite Strips) famotidine 40 mg tablet (Pepcid) 40 mg PO DAILY #90 tabs 06/11/24 glipizide 10 mg tablet, extended 10 mg PO DAILY Diabetes #90 tabs 06/11/24 release 24 hr hydralazine 25 mg tablet 25 mg PO TID blood pressure #90 07/01/24 tabs cholecalciferol (vitamin D3) 25 50 mcg (2 x 25 mcg (1,000 unit)) 07/09/24 mcg (1,000 unit) tablet PO DAILY #90 tabs levothyroxine 25 mcg capsule 25 mcg PO DAILY #30 caps 07/09/24 colestipol 1 gram tablet 2 g (2 x 1 gram) PO .At bedtime 07/17/24 #60 tabs doxycycline hyclate 100 mg capsule 100 mg PO BID infection 14 days 07/28/24 #28 caps lancets 28 gauge (FreeStyle #100 ea 07/28/24 Lancets) mupirocin 2 % topical ointment 1 applic topical BID infection 14 07/28/24 days #15 grams metoclopramide HCl 5 mg tablet 5 mg PO Q6H PRN nausea and 07/30/24 (Reglan) vomiting #12 tabs Allergies Allergy/AdvReac Type Severity Reaction Status Date / Time No Known Allergies Allergy Verified 08/09/24 10:34 [facility] Disclaimer: The information contained in this section may have been updated after the patient was seen, as this information can be updated by other users. Medical History Abdominal pain Dyspnea CKD stage 3 due to type 2 diabetes mellitus PVD (peripheral vascular disease) Edema of left lower extremity Wound of left foot Elevated bilirubin Typical angina Hypothyroidism Hyperkalemia Type 2 diabetes mellitus with diabetic polyneuropathy, without long-term current use of insulin Diarrhea Type 2 diabetes mellitus Decreased pulses in feet Neuropathy Anxiety HLD (hyperlipidemia) Surgical History H/O tubal ligation Hx laparoscopic cholecystectomy Family History Other No significant family history Social History Smoking Status: Former smoker tobacco type: cigarettes alcohol intake: never substance use type: denies use current occupational status: unemployed Travel in the last 8 weeks: Inside the [place] household members: significant other housing: house current occupational exposures/hazards: No caffeine: No Have you lived/traveled outside [place] in past 30 days?: No Contact w/someone who lives/traveled outside [place] past 30 days?: No Exposure to someone with infectious disease in past 14 days?: No Do you have a fever (greater than 100.4 F or 38 C)?: No Have you tested positive for COVID-19: No Exposed to someone with COVID-19 in past 14 days?: No Do you have a sore throat?: No Do you have a cough?: No Do you have any weakness?: Yes Do you have any diarrhea?: No Are you experiencing any unusual bleeding?: No Do you have any muscle aches/pain?: No Do you have any abdominal pain?: No Are you experiencing loss of taste or smell?: No Other Medical History Have you received the Flu Vaccine for this season: No Have you received the Pneumonia Vaccine: Yes ROS Obtained: Yes All systems reviewed & no additional complaints except as documented Physical Exam General General appearance: other (Very cool to the touch) Respiratory Respiratory exam: Present normal lung sounds bilaterally; Absent respiratory distress Cardiovascular Cardiovascular exam: Present regular rate and normal rhythm Abdominal Exam Abdominal exam: Present soft; Absent distention or tenderness Neurological Exam Neurological exam: Present alert and oriented X3 Medical Decision Making Medical Records Screening: Per USPSTF and CDC recommendations, given the prevalence of disease in our region, it is our hospital?s policy to screen for HIV and viral Hepatitis for all patients aged 18 and over and those with ongoing risk factors. George Inquiry Pt receiving controlled substance: No Vital Signs: 08/09/24 10:12 08/09/24 10:17 08/09/24 10:18 Temperature 93.5 F L Temperature Source Rectal Pulse Rate 76 77 Pulse Rate [Left] 79 Respiratory Rate 11 L 11 L 14 Blood Pressure 150/113 H 143/73 H Blood Pressure [Right Arm] 143/73 H Blood Pressure Mean [Right Arm] 96 Blood Pressure Source [Right Arm] Automatic Cuff Blood Pressure Position [Right Arm] Sitting 02 Sat by Pulse Oximetry 99 98 100 Oxygen Delivery Method Room Air Room Air Room Air 08/09/24 10:30 08/09/24 11:00 08/09/24 11:00 Temperature 97.7 F Temperature Source Rectal Pulse Rate 64 77 Pulse Rate [Left] Respiratory Rate 19 17 Blood Pressure 163/83 H 171/95 H Blood Pressure [Right Arm] Blood Pressure Mean [Right Arm] Blood Pressure Source [Right Arm] Blood Pressure Position [Right Arm] 02 Sat by Pulse Oximetry 100 97 Oxygen Delivery Method Room Air 08/09/24 11:30 08/09/24 12:00 Temperature Temperature Source Pulse Rate 78 75 Pulse Rate [Left] Respiratory Rate 12 13 Blood Pressure 174/69 H 199/91 H Blood Pressure [Right Arm] Blood Pressure Mean [Right Arm] Blood Pressure Source [Right Arm] Blood Pressure Position [Right Arm] 02 Sat by Pulse Oximetry 96 99 Oxygen Delivery Method Room Air Room Air Lab Data Lab results reviewed: Yes I reviewed the patient's lab results. Lab Results 08/09/24 10:06: WBC 13.5 H, RBC 3.79 L, Hgb 10.6 L, Hct 34.0 L, MCV 89.7, MCH 28.0, MCHC 31.2 L, RDW 15.9, Plt Count 311, MPV 10.9 H, Neut % (Auto) 74.5, Lymph % (Auto) 20.1, [place] % (Auto) 3.9, Eos % (Auto) 0.6, Baso % (Auto) 0.5, N eut # (Auto) 10.1 H, Lymph # (Auto) 2.7, [place] # (Auto) 0.5, Eos # (Auto) 0.1, Baso # (Auto) 0.1, Sodium 139, Potassium 4.4, Chloride 111 H, Carbon Dioxide 17 L, Anion Gap 15.4 H, BUN 35 H, Creatinine 2.90 H, Estimated Creat Clear 17, E stimated GFR 16 L*, Est GFR ( Amer) 20 L, Glucose 75, Calcium 9.1, M agnesium 1.4 L, Total Bilirubin 1.0, AST 34, ALT 18, Alkaline Phosphatase 112, Troponin I 0.03, Total Protein 7.3, Albumin 4.2, Globulin 3.1, Albumin/Globulin Ratio 1.4, TSH 15.30 H, Salicylates < 1.0 L, Acetaminophen < 10 L, Plasma/Serum Alcohol < 10 08/09/24 10:18: VBG pH 7.12 L, VBG pCO2 51.2 H, VBG pO2 35.0, VBG HCO3 16.4 L, V BG Total CO2 18.0 L, VBG O2 Saturation 59.4, VBG Base Excess -12.8 L, VBG Lactic Acid 2.8 H, SARS-CoV-2 (PCR) Not detected, Influenza A Untype (PCR) Not detected, Influenza Type B (PCR) Not detected 08/09/24 11:04: Urine Color Yellow, Urine Appearance Clear, Urine pH 5.5, Ur Specific [place] 1.025, Urine Protein 1+ A, Urine Glucose (UA) 2+, Urine Ketones Negative, Urine Blood Trace-i, Urine Nitrate Negative, Urine Bilirubin Negative, Urine Urobilinogen 0.2, Ur Leukocyte Esterase Negative, Urine RBC None, Urine WBC Occasional, Ur Squamous Epith Cells Occasional, Urine Bacteria Trace, Urine Opiates Screen Negative, Urine Methadone Screen Negative, Ur Barbituates Screen Negative, Ur Phencyclidine Scrn Negative, Ur Amphetamines Screen Negative, U Benzodiazepines Scrn Negative, Urine Cocaine Screen Negative, U Marijuana (THC) Screen Negative 08/09/24 10:06 08/09/24 10:06 Orders (Tests/Meds): ED MEDICATIONS Discontinued Medications Generic Name Dose Route Start Last Admin Trade Name Freq PRN Reason Stop Dose Admin Dextrose 50 ml 08/09/24 10:35 08/09/24 10:25 Dextrose 50% 50ml Syringe (Crash Cart) IVP 08/09/24 10:36 50 ml ONCE ONE Administration Lactated Ringer's 1,000 mls @ 999 mls/hr 08/09/24 11:00 08/09/24 11:09 Lactated Ringer's 1000 Ml Bag IV 08/09/24 12:00 999 mls/hr .Q1H1M DEXTER Administration ORDERS Category Date Time Status CT abdomen pelvis wo con Stat Cat Scan 08/09/24 10:07 Completed CXR --portable [XR chest portable] Stat Exams 08/09/24 10:07 Completed Acetaminophen Stat Lab 08/09/24 10:06 Completed CBC w/Auto Diff [Complete Blood Count Auto Diff] Stat Lab 08/09/24 10:06 Completed CMP [Comprehensive Metabolic Panel] Stat Lab 08/09/24 10:06 Completed Ethanol [Ethyl Alcohol] Stat Lab 08/09/24 10:06 Completed Lactate Venous Stat Lab 08/09/24 10:18 Ordered Magnesium Stat Lab 08/09/24 10:06 Completed Rapid PCR Covid and Flu A/B Stat Lab 08/09/24 10:18 Completed Salicylate Stat Lab 08/09/24 10:06 Completed TSH [Thyroid Stimulating Hormone] Stat Lab 08/09/24 10:06 Completed Trop I [Troponin I] Stat Lab 08/09/24 10:06 Completed Troponin I Q3H Lab 08/09/24 13:15 Ordered Troponin I Q3H Lab 08/09/24 16:15 Ordered UA [Urinalysis and Microscopic] Stat Lab 08/09/24 11:04 Completed UDS [Drug Screen,Urine] Stat Lab 08/09/24 11:04 Completed Blood Culture Stat Micro 08/09/24 10:14 Received Venous Blood Gas Stat RT 08/09/24 10:18 Completed ECG Data Tracing #1: I reviewed this ECG and interpreted as documented below: Ventricular rate of 81 normal sinus rhythm no acute ischemic changes noted there is left axis deviation otherwise unremarkable from an arrhythmia standpoint Medical Decision Narrative: 68-year-old GCS of 15 normal neurologic exam at the moment but very hypothermic core temp of 93.8. No other current symptoms other than the possible and likely syncopal episode where she was found down. Differential is very broad including arrhythmia thyroid dysfunction infection and sepsis which could include a retained stone we will get a repeat CT scan to look into this further in addition to urinalysis. Patient's been placed on a Yany hugger EKG unremarkable from an arrhythmia standpoint at the moment. Will reassess shortly. Patient has a metabolic acid nongap likely secondary to hypothermia. She does have an elevated TSH but does not meet any other criteria for myxedematous coma therefore not giving IV levothyroxine. But that remains in the differential. No definitive source of infection. Will hold off on antibiotics for treatment of sepsis. There was an initial concern for retained stone however CT scan was performed and I personally interpreted this and also looked at radiology read and there is no evidence of a stone, therefore it has passed. No urologic intervention needed at the moment. Working diagnosis is syncope hypothermia metabolic acidosis patient will be admitted for further evaluation and management. Hopefully all of this will resolve with management and resolution of her core body temperature. Spoke with hospital medicine who admit the patient for further evaluation. Critical Care Critical Care Time Critical Care Time: Yes Attestation: On 08/09/24, the high probability of a clinically significant, sudden or life threatening deterioration of the following system(s) required my full and direct attention, intervention and personal management. The time I documented below is in addition to time spent performing reported procedures but includes the following listed in this critical care notation. Total Time Total Critical Care Time: 35
[2024-08-09 10:15] LABS: Basophils # 0.1 K/mm3 (0-0.2); Basophils % 0.5 % (0.1-2.0); Eosinophils # 0.1 K/mm3 (0.0-0.4); Eosinophils % 0.6 % (0.1-12.0); Hemoglobin 10.6 g/dL (12.2-16.2); Lymphocytes # 2.7 K/mm3 (0.7-4.5); Lymphocytes % 20.1 % (10-50); Mean Corpuscular HGB Conc 31.2 g/dL (31.8-35.4); Mean Corpuscular Volume 89.7 fl (81-99); Mean Platelet Volume 10.9 fl (7.4-10.4); Monocytes # 0.5 K/mm3 (0.1-1.0); Monocytes % 3.9 % (1.7-9.3); Neutrophils # 10.1 K/mm3 (1.8-7.8); Neutrophils % 74.5 % (37.0-80.0); Platelet Count 311 K/mm3 (142-424); Red Blood Count 3.79 M/mm3 (4.20-5.40); Red Cell Distribution Width 15.9 % (11.5-17.5); White Blood Count 13.5 K/mm3 (4.8-10.8)
[2024-08-09 10:22] LABS: Coronavirus 19, PCR Not Detected (NotDetected); Influenza A, PCR Not Detected (NotDetected); Influenza B, PCR Not Detected (NotDetected); VBG Base Excess -12.8 mmol/L (-2.4-2.3); VBG HCO3 16.4 mmol/L (23-30); VBG Oxygen Saturation 59.4 % (50-70)
[2024-08-09 10:24] LABS: VBG PH 7.12 mmol/L (7.31-7.41)
--- NOTE | 2024-08-09 10:24 | PC.NURSE ---
aware of vbg results
[2024-08-09 10:25] LABS: Lactate Venous 2.8 mmol/L (0.4-2.0); VBG PCO2 51.2 mmol/L (35-51)
[2024-08-09] MEDS: DEXTROSE 50% 50ML SYRINGE (CRASH CART) 50 ML IVP (10:25)
[2024-08-09 10:33] LABS: Alanine Aminotransferase 18 U/L (12-78); Albumin Level 4.2 g/dl (3.5-5.0); Albumin/Globulin Ratio 1.4 (1.1-1.8); Alkaline Phosphatase 112 U/L (38-126); Anion Gap 15.4 mEq/L (5-15); Aspartate Amino Transferase 34 U/L (14-36); Blood Urea Nitrogen 35 mg/dl (7-17); Calcium 9.1 mg/dl (8.4-10.2); Carbon Dioxide 17 mmol/L (22.0-30.0); Chloride 111 mmol/L (98-107); Creatinine Clearance Estimated 17 mL/min (50-200); Estimated Glomerular Filt Rate 16 ml/min (>60); GFR (African American) 20 ML/MIN (>60); Globulin 3.1 g/dL (1.3-3.2); Glucose 75 mg/dl (74-100); Magnesium 1.4 mg/dl (1.6-2.3); Potassium 4.4 mmoL/L (3.5-5.1); Sodium 139 mmol/L (136-145); Total Protein,Serum 7.3 g/dl (6.3-8.2)
[2024-08-09 10:44] LABS: Troponin I 0.03 ng/ml (0.00-0.034)
--- NOTE | 2024-08-09 10:50 | PC.NURSE ---
speaking with respiratory
[2024-08-09 11:08] LABS: Microscopic, Urine URINE MICROSCOPIC (MICROSCOPIC)
[2024-08-09] MEDS: LACTATED RINGERS 1000ML 1,000 ML 999 ML IV (11:09)
[2024-08-09 11:23] LABS: Appearance,Urine CLEAR (Clear); Bilirubin,Urine Negative (Negative); Blood, Urine TRACE-I (Negative); Color,Urine YELLOW (Yellow); Glucose,Urine (UA) 2+ (Negative); Ketones,Urine Negative (Negative); Leukocyte Esterase,Urine Negative (Negative); Nitrate,Urine Negative (Negative); PH,Urine 5.5 (5.0-8.5); Protein,Urine 1+ (Negative); Specific Gravity, Urine 1.025 (1.005-1.030); Urobilinogen,Urine 0.2 EU/dl (0.2)
[2024-08-09 11:28] LABS: Acetaminophen < 10 ug/ml (10-30); Ethyl Alcohol < 10 mg/dl (0-10); Salicylate < 1.0 mg/dL (2.0-20.0)
[2024-08-09 11:33] LABS: Barbiturates Screen,Urine Negative ng/ml (<200)
[2024-08-09 11:34] LABS: Amphetamine/Metha Screen,Urine Negative ng/ml (<1000); Benzodiazepines Screen,Urine Negative ng/ml (<200)
[2024-08-09 11:35] LABS: Cannabinoid Screen,Urine Negative ng/ml (<50)
[2024-08-09 11:36] LABS: Cocaine Screen,Urine Negative ng/ml (<300); Methadone Screen,Urine Negative ng/ml (<300)
[2024-08-09 11:37] LABS: Opiate Screen,Urine Negative ng/ml (<300)
[2024-08-09 11:38] LABS: Phencyclidine Screen,Urine Negative ng/ml (<25)
--- NOTE | 2024-08-09 11:40 | PC.NURSE ---
on phone with hospitalist
--- NOTE | 2024-08-09 11:41 | PC.NURSE ---
on phone with hospitalist
[2024-08-09 11:53] LABS: Bacteria,Urine Trace /lpf; Squamous Epithelial Cell,Urine Occasional #/hpf (0-5); WBC,Urine Occasional #/hpf (0-3)
--- NOTE | 2024-08-09 12:31 | PC.NURSE ---
Fingerstick glucose 129 at 1231
[2024-08-09 13:29] LABS: D-Dimer 1.19 ug/mL (0.0-0.5)
--- NOTE | 2024-08-09 13:34 | PC.NURSE ---
Called report to Mayelin QUINTERO
[2024-08-09 13:39] LABS: Free T4 (Free Thyroxine) 1.23 ng/dl (0.78-2.19)
--- NOTE | 2024-08-09 14:11 | PC.NURSE ---
arrived by w/c from ED
[2024-08-09 14:22] LABS: Reflex Lactic Add Lactic Reflex
--- NOTE | 2024-08-09 14:52 | HMH.PHAINT1 ---
Pharmacy Intervention Comments: MEDICATION RECONCILIATION COMPLETE USING LIST FROM RECENT MD OFFICE VISIT NOTE, EXTERNAL PHARMACY FILL HISTORY AND KAREN REPORT.
[2024-08-09 15:15] LABS: Lactic Acid Follow Up (RFLX 1) 0.8 mmol/L (0.7-2.1)
--- NOTE | 2024-08-09 17:21 | P.HP_ITS ---
History of Present Illness *Admission Date: 08/09/24 *Reason for visit:: Hypoglycemia, hypothermia, syncope *History of present illness: Radha Anders is a 68-year-old female with a medical history significant for diabetes, hypertension, GERD, CKD stage IV who presents after an episode of apparent syncope, hypoglycemia, hypothermia. Per patient, she had gotten up around 7 AM and was using the bathroom, she then woke up apparently 2 hours later on the floor the bathroom with her briefs down. Her [id number] found her confused, lethargic and called EMS. Apparently blood sugar was 51 which improved to 80, but patient was significantly hypothermic and was brought to the ED. On arrival, patient's body temperature was 93.5 Fahrenheit and was placed on a Yany hugger. Her mentation began to improve. Blood sugar was 75. Other workup WBC 13.5, D-dimer 1.19, pH 7.12, lactic acid 2.8, pCO2 51.2 AGAP 15.4, TSH 15.3. Case discussed with ED provider decision was made to admit patient for hypothermia, and episode of hypoglycemia and syncope. On my evaluation, patient is completely asymptomatic and off the Yany hugger. Pleasant and conversational. [facility] Disclaimer: The information contained in this section may have been updated after the patient was seen, as this information can be updated by other users. Medical History Abdominal pain Dyspnea CKD stage 3 due to type 2 diabetes mellitus PVD (peripheral vascular disease) Edema of left lower extremity Wound of left foot Elevated bilirubin Typical angina Hypothyroidism Hyperkalemia Type 2 diabetes mellitus with diabetic polyneuropathy, without long-term current use of insulin Diarrhea Type 2 diabetes mellitus Decreased pulses in feet Neuropathy Anxiety HLD (hyperlipidemia) Surgical History H/O tubal ligation Hx laparoscopic cholecystectomy Family History Other No significant family history Social History Smoking Status: Former smoker tobacco type: cigarettes alcohol intake: never substance use type: denies use current occupational status: unemployed Travel in the last 8 weeks: Inside the [place] household members: significant other housing: house current occupational exposures/hazards: No caffeine: No Have you lived/traveled outside [place] in past 30 days?: No Contact w/someone who lives/traveled outside [place] past 30 days?: No Exposure to someone with infectious disease in past 14 days?: No Do you have a fever (greater than 100.4 F or 38 C)?: No Have you tested positive for COVID-19: No Exposed to someone with COVID-19 in past 14 days?: No Do you have a sore throat?: No Do you have a cough?: No Do you have any weakness?: Yes Do you have any diarrhea?: No Are you experiencing any unusual bleeding?: No Do you have any muscle aches/pain?: No Do you have any abdominal pain?: No Are you experiencing loss of taste or smell?: No Other Medical History Have you received the Flu Vaccine for this season: Yes Have you received the Pneumonia Vaccine: Yes Meds Home Medications and Allergies Home Medications ?Medication ?Instructions ?Recorded ?Confirmed ?Type ferrous sulfate 325 mg (65 mg 325 mg PO DAILY 06/06/23 08/09/24 History iron) tablet diphenoxylate-atropine 2.5 1 tab PO Q8HP PRN diarrhea 01/07/24 08/09/24 History mg-0.025 mg tablet (Lomotil) pantoprazole 40 mg tablet,delayed 40 mg PO DAILY 30 days #30 tabs 01/08/24 08/09/24 Rx release dapagliflozin propanediol 5 mg 5 mg PO DAILY 05/13/24 08/09/24 History tablet (Farxiga) sodium bicarbonate 650 mg tablet 650 mg PO BID 05/13/24 08/09/24 History famotidine 40 mg tablet (Pepcid) 40 mg PO DAILY #90 tabs 06/11/24 08/09/24 Rx cholecalciferol (vitamin D3) 25 50 mcg (2 x 25 mcg (1,000 unit)) 07/09/24 08/09/24 Rx mcg (1,000 unit) tablet PO DAILY #90 tabs doxycycline hyclate 100 mg capsule 100 mg PO BID infection 14 days 07/28/24 08/09/24 Rx #28 caps atorvastatin 40 mg tablet 40 mg PO HS 08/09/24 08/09/24 History colestipol 1 gram tablet 2 g PO HS 08/09/24 08/09/24 History glipizide 10 mg tablet, extended 10 mg PO DAILY 08/09/24 08/09/24 History release 24 hr hydralazine 25 mg tablet 25 mg PO TID 08/09/24 08/09/24 History levothyroxine 25 mcg tablet 25 mcg PO DAILYDM 08/09/24 08/09/24 History metoprolol succinate 100 mg 100 mg PO DAILY 08/09/24 08/09/24 History tablet,extended release 24 hr mupirocin 2 % topical ointment 1 applic topical BID 08/09/24 08/09/24 History nitroglycerin 0.3 mg sublingual 0.3 mg sublingual Q5MINP PRN Chest 08/09/24 08/09/24 History tablet Pain New Prescriptions to Start Prescriptions: Allergies Allergy/AdvReac Type Severity Reaction Status Date / Time No Known Allergies Allergy Verified 08/09/24 10:34 Exam Data for Last 24 hours Vital signs and Labs for Last 24 Hours: Temp Pulse Resp BP Pulse Ox O2 Del Method 97.7 F 79 15 187/87 H 100 Room Air 08/09/24 13:34 08/09/24 14:00 08/09/24 13:34 08/09/24 14:00 08/09/24 14:00 08/09/24 15:00 Laboratory Results - last 24 hr 08/09/24 10:06: WBC 13.5 H, RBC 3.79 L, Hgb 10.6 L, Hct 34.0 L, MCV 89.7, MCH 28.0, MCHC 31.2 L, RDW 15.9, Plt Count 311, MPV 10.9 H, Neut % (Auto) 74.5, Lymph % (Auto) 20.1, [place] % (Auto) 3.9, Eos % (Auto) 0.6, Baso % (Auto) 0.5, Neut # (Auto) 10.1 H, Lymph # (Auto) 2.7, [place] # (Auto) 0.5, Eos # (Auto) 0.1, Baso # (Auto) 0.1, D-Dimer 1.19 H, Sodium 139, Potassium 4.4, Chloride 111 H, Carbon Dioxide 17 L, Anion Gap 15.4 H, BUN 35 H, Creatinine 2.90 H, Estimated Creat Clear 17, Estimated GFR 16 L*, Est GFR ( Amer) 20 L, Glucose 75, Calcium 9.1, Magnesium 1.4 L, Total Bilirubin 1.0, AST 34, ALT 18, Alkaline Phosphatase 112, Troponin I 0.03, Total Protein 7.3, Albumin 4.2, Globulin 3.1, Albumin/Globulin Ratio 1.4, TSH 15.30 H, Free T4 1.23, Salicylates < 1.0 L, Acetaminophen < 10 L, Plasma/Serum Alcohol < 10 08/09/24 10:18: VBG pH 7.12 L, VBG pCO2 51.2 H, VBG pO2 35.0, VBG HCO3 16.4 L, VBG Total CO2 18.0 L, VBG O2 Saturation 59.4, VBG Base Excess -12.8 L, VBG Lactic Acid 2.8 H, SARS-CoV-2 (PCR) Not detected, Influenza A Untype (PCR) Not detected, Influenza Type B (PCR) Not detected 08/09/24 11:04: Urine Color Yellow, Urine Appearance Clear, Urine pH 5.5, Ur Specific [place] 1.025, Urine Protein 1+ A, Urine Glucose (UA) 2+, Urine Ketones Negative, Urine Blood Trace-i, Urine Nitrate Negative, Urine Bilirubin Negative, Urine Urobilinogen 0.2, Ur Leukocyte Esterase Negative, Urine RBC None, Urine WBC Occasional, Ur Squamous Epith Cells Occasional, Urine Bacteria Trace, Urine Opiates Screen Negative, Urine Methadone Screen Negative, Ur Barbituates Screen Negative, Ur Phencyclidine Scrn Negative, Ur Amphetamines Screen Negative, U Benzodiazepines Scrn Negative, Urine Cocaine Screen Negative, U Marijuana (THC) Screen Negative 08/09/24 15:00: Lactate 0.8 I & O for Last 24 hours: Intake & Output 08/06/24 08/07/24 08/08/24 08/09/24 23:59 23:59 23:59 23:59 Weight 58.967 kg Constitutional Constitutional: no acute distress *Routine HEENT Exam Head: Present normocephalic Eye: Present EOMI and PERRL ENT: Present mucous membranes moist *Routine Neck Exam Neck: Present supple; Absent lymphadenopathy *Routine Respiratory Exam Respiratory: Present CTA bilaterally *Routine Cardiovascular Exam Cardiovascular: Present RRR *Routine Abdominal Exam Abdominal: Present soft and normoactive bowel sounds; Absent tenderness *Routine Rectal Exam Rectal:: deferred *Routine Genitalia Exam Genitalia:: deferred *Routine Extremities Exam Extremities: Absent cyanosis, clubbing or edema *Routine Skin Exam Skin: Present warm; Absent rash *Routine Neurological Exam Neurological: Present alert and oriented X3 Assessment and Plan *Assessment and plan (1) Syncope: Status: Acute Category: Medical Code(s): R55 - Syncope and collapse (2) Hypothermia: Status: Acute Category: Medical Code(s): T68.XXXA - Hypothermia, initial encounter (3) Metabolic acidosis: Status: Acute Category: Medical Code(s): E87.20 - Acidosis, unspecified Plan Radha Anders is a 68-year-old female with a medical history significant for diabetes, hypertension, GERD, CKD stage IV who presents after an episode of apparent syncope, hypoglycemia, hypothermia. Per patient, she had gotten up around 7 AM and was using the bathroom, she then woke up apparently 2 hours later on the floor the bathroom with her briefs down. Her [id number] found her confused, lethargic and called EMS. Apparently blood sugar was 51 which improved to 80, but patient was significantly hypothermic and was brought to the ED. On arrival, patient's body temperature was 93.5 Fahrenheit and was placed on a Yany hugger. Her mentation began to improve. Blood sugar was 75. Other workup WBC 13.5, D-dimer 1.19, pH 7.12, lactic acid 2.8, pCO2 51.2 AGAP 15.4, TSH 15.3. Case discussed with ED provider decision was made to admit patient for hypothermia, and episode of hypoglycemia and syncope. #Suspected vasovagal syncope #Episode of hypoglycemia #Hypothermia, resolved #Metabolic acidosis ? Patient was on the toilet and and apparently became unconscious, and patient does not remember much of it. ? Per EMS reports patient's house was very cold, and that her sugar was initially 51. ? Suspect his syncope is likely multifactorial with a combination of vasovagal syncope on the toilet, hypoglycemia, and hypothermia. All of these seem to have resolved. ? However, cannot rule out arrhythmia since patient cannot recall any prodromal symptoms. ? TSH is elevated to 15, however this is likely an acute change during a stress response. Will repeat tomorrow and outpatient. T4 normal. ? VBG pH was 7.12, likely from hypothermia. Follow-up repeat VBG. ? D-dimer is elevated, however patient is saturating 100% on room air with no tachypnea or tachycardia. Well score is low, and patient has CKD prohibiting a CTA. ? Continue to monitor sugars. Plan to discontinue glipizide due to hypoglycemic risk. Patient states she only ate popcorn last night. ? Continuous cardiac telemetry. #Diabetes ? Hemoglobin A1c 7.2 in June 2024. At goal for patient. ? Will discontinue glipizide as above due to hypoglycemic risk. Can continue Farxiga, will talk to patient about metformin if needed. #Hypertension ? Resume home medications once reconciled. #CKD stage IV ? Stable. Continue to monitor renal function. #GERD ? Resume home PPI. Full code DVT prophylaxis: Lovenox 30 mg
[2024-08-09 18:49] LABS: Lactate Venous 1.6 mmol/L (0.4-2.0); VBG HCO3 16.5 mmol/L (23-30); VBG PCO2 30.2 mmol/L (35-51); VBG PH 7.36 mmol/L (7.31-7.41); VBG PO2 38.6 mmol/L (28-40); VBG Total CO2 17.4 mmol/L (23-27)
[2024-08-09] MEDS: DOXYCYCLINE HYCLATE 100 MG 100 EACH PO (21:03)
[2024-08-09] MEDS: ATORVASTATIN 40MG TABLET 40 MG PO (21:03)
[2024-08-09] MEDS: HYDRALAZINE HCL 25MG TABLET 25 MG PO (21:03)
[2024-08-10] VITALS: BP 137/59; PULSE 70; PULSE 73; RESP 16; TEMP 37.1; O2SAT 97
[2024-08-10 04:00] VITALS: BP 176/79; PULSE 65; PULSE 68; RESP 16; TEMP 36.7; O2SAT 97; BMI 23.2
--- NOTE | 2024-08-10 04:00 | PC.NURSE ---
Patient is alert and oriented x4. Upon assessment, patient was able to explain to me that she could remember being found lying on her bathroom floor without her pants on but could not recall how she ended up getting that way. Patient was observed to have eyes closed, respirations even and unlabored on room air, and no apparent distress throughout the night. Patient denied having any sort of pain, dizziness, or nausea/vomiting this shift. Patient reported having chronic diarrhea since the removal of her gallbladder. She had a bowel movement this shift (diarrheal). Upon palpation of her abdomen, it was soft and non-tender. Auscultation of her bowels, heart, and lungs were within normal findings. Normal sinus rhythm on telemetry. Vital signs relatively stable and blood pressure has improved. Patient was given a Pepsi to drink at bedtime. Scheduled medications were administered as appropriately per OCT. Patient ambulates with standby assistance and uses a rolling walker to assist her; she tolerates ambulation well. At this time, the patient does not have any further complaints and is resting in bed. Bed alarm on. Call light within reach.
[2024-08-10] MEDS: LEVOTHYROXINE 25MCG (0.025MG) TAB 25 MCG PO (06:17)
[2024-08-10 07:27] LABS: Lactate Venous 1.8 mmol/L (0.4-2.0); VBG Base Excess -9.1 mmol/L (-2.4-2.3); VBG HCO3 17.3 mmol/L (23-30); VBG Oxygen Saturation 83.1 % (50-70); VBG PCO2 35.7 mmol/L (35-51); VBG PO2 48.2 mmol/L (28-40); VBG Total CO2 18.3 mmol/L (23-27)
[2024-08-10 07:31] LABS: Basophils # 0.1 K/mm3 (0-0.2); Basophils % 0.8 % (0.1-2.0); Eosinophils # 0.2 K/mm3 (0.0-0.4); Eosinophils % 1.8 % (0.1-12.0); Lymphocytes # 2.3 K/mm3 (0.7-4.5); Mean Corpuscular HGB Conc 31.1 g/dL (31.8-35.4); Mean Corpuscular Hemoglobin 27.6 pg (27.0-31.2); Mean Corpuscular Volume 88.8 fl (81-99); Monocytes # 0.6 K/mm3 (0.1-1.0); Monocytes % 6.9 % (1.7-9.3); Neutrophils # 5.6 K/mm3 (1.8-7.8); Platelet Count 239 K/mm3 (142-424); Red Blood Count 3.04 M/mm3 (4.20-5.40); White Blood Count 8.7 K/mm3 (4.8-10.8)
[2024-08-10 07:50] LABS: Alanine Aminotransferase 15 U/L (12-78); Albumin Level 2.7 g/dl (3.5-5.0); Alkaline Phosphatase 78 U/L (38-126); Aspartate Amino Transferase 28 U/L (14-36); Bilirubin,Total 0.9 mg/dl (0.2-1.3); Blood Urea Nitrogen 38 mg/dl (7-17); Calcium 8.1 mg/dl (8.4-10.2); Carbon Dioxide 18 mmol/L (22.0-30.0); Chloride 114 mmol/L (98-107); Creatinine Clearance Estimated 21 mL/min (50-200); Estimated Glomerular Filt Rate 19 ml/min (>60); GFR (African American) 23 ML/MIN (>60); Globulin 2.6 g/dL (1.3-3.2); Glucose 103 mg/dl (74-100); Magnesium 1.3 mg/dl (1.6-2.3); Sodium 137 mmol/L (136-145); Total Protein,Serum 5.3 g/dl (6.3-8.2)
[2024-08-10 08:00] VITALS: BP 143/70; PULSE 79; PULSE 90; RESP 18; TEMP 37; O2SAT 99
[2024-08-10 08:18] LABS: Thyroid Stimulating Hormone 5.25 uIU/mL (0.465-4.68)
[2024-08-10] MEDS: HYDRALAZINE HCL 25MG TABLET 25 MG PO (08:35)
[2024-08-10] MEDS: PANTOPRAZOLE 40MG TABLET 40 MG PO (08:35)
[2024-08-10] MEDS: ENOXAPARIN 30MG/0.3ML SYRINGE 30 MG SUBCUT (08:35)
[2024-08-10] MEDS: DOXYCYCLINE HYCL 100 MG TABLET PO (08:36)
[2024-08-10] MEDS: METOPROLOL SUCCINATE XL 100MG TABLET 100 MG PO (08:36)
[2024-08-10] MEDS: SODIUM BICARBONATE 650MG TABLET 650 MG PO (08:36)
[2024-08-10 09:36] LABS: Hemoglobin 8.4 g/dL (12.2-16.2)
--- NOTE | 2024-08-10 09:42 | EXP.DC.SUM ---
General Admission date:: 08/09/24 HPI HPI HPI: Radha Anders is a 68-year-old female with a medical history significant for diabetes, hypertension, GERD, CKD stage IV who presents after an episode of apparent syncope, hypoglycemia, hypothermia. Per patient, she had gotten up around 7 AM and was using the bathroom, she then woke up apparently 2 hours later on the floor the bathroom with her briefs down. Her [id number] found her confused, lethargic and called EMS. Apparently blood sugar was 51 which improved to 80, but patient was significantly hypothermic and was brought to the ED. On arrival, patient's body temperature was 93.5 Fahrenheit and was placed on a Yany hugger. Her mentation began to improve. Blood sugar was 75. Other workup WBC 13.5, D-dimer 1.19, pH 7.12, lactic acid 2.8, pCO2 51.2 AGAP 15.4, TSH 15.3. Case discussed with ED provider decision was made to admit patient for hypothermia, and episode of hypoglycemia and syncope. On my evaluation, patient is completely asymptomatic and off the Yany hugger. Pleasant and conversational. Hospital Course Hospital Course Hospital Course: Radha Anders is a 68-year-old female with a medical history significant for diabetes, hypertension, GERD, CKD stage IV who presents after an episode of apparent syncope, hypoglycemia, hypothermia. Per patient, she had gotten up around 7 AM and was using the bathroom, she then woke up apparently 2 hours later on the floor the bathroom with her briefs down. Her [id number] found her confused, lethargic and called EMS. Apparently blood sugar was 51 which improved to 80, but patient was significantly hypothermic and was brought to the ED. On arrival, patient's body temperature was 93.5 Fahrenheit and was placed on a Yany hugger. Her mentation began to improve. Blood sugar was 75. Other workup WBC 13.5, D-dimer 1.19, pH 7.12, lactic acid 2.8, pCO2 51.2 AGAP 15.4, TSH 15.3. Case discussed with ED provider decision was made to admit patient for hypothermia, and episode of hypoglycemia and syncope. #Suspected vasovagal syncope #Episode of hypoglycemia #Hypothermia, resolved #Metabolic acidosis ? Patient was on the toilet and and apparently became lost conciousness, and patient does not remember much of it. ? Per EMS reports patient's house was very cold, and that her sugar was initially 51. ? Suspect his syncope is likely multifactorial with a combination of vasovagal syncope on the toilet, hypoglycemia, and hypothermia. All of these seem to have resolved. ? TSH is elevated to 15, however this is likely an acute change during a stress response. Repeat the morning after was 5.25. T4 normal. ? VBG pH was 7.12, likely from hypothermia. Follow-up repeat VBG reassuring. ? D-dimer is elevated, however patient is saturating 100% on room air with no tachypnea or tachycardia. Wells score is low, and patient has CKD stage 4 prohibiting a CTA. - Patient AOx4, pleasant, conversational. Medically stable for discharge. Discontinued glipize as A1c is at goal. Will follow-up with PCP within 1 week. #Diabetes ? Hemoglobin A1c 7.2 in June 2024. At goal for patient. ? Will discontinue glipizide as above due to hypoglycemic risk. Can continue Farxiga, will follow-up with PCP for further managment. #Hypertension ? Resume home regimen. #CKD stage IV ? Stable. Continue to monitor renal function. #GERD ? Resume home PPI. Exam Data for Last 24 hours Vital signs and Labs for Last 24 Hours: Temp Pulse Resp BP Pulse Ox O2 Del Method 98.0 F 68 16 176/79 H 97 Room Air 08/10/24 04:00 08/10/24 04:00 08/10/24 04:00 08/10/24 04:00 08/10/24 04:00 08/10/24 09:00 Laboratory Results - last 24 hr 08/09/24 10:06: WBC 13.5 H, RBC 3.79 L, Hgb 10.6 L, Hct 34.0 L, MCV 89.7, MCH 28.0, MCHC 31.2 L, RDW 15.9, Plt Count 311, MPV 10.9 H, Neut % (Auto) 74.5, Lymph % (Auto) 20.1, [place] % (Auto) 3.9, Eos % (Auto) 0.6, Baso % (Auto) 0.5, Neut # (Auto) 10.1 H, Lymph # (Auto) 2.7, [place] # (Auto) 0.5, Eos # (Auto) 0.1, Baso # (Auto) 0.1, D-Dimer 1.19 H, Sodium 139, Potassium 4.4, Chloride 111 H, Carbon Dioxide 17 L, Anion Gap 15.4 H, BUN 35 H, Creatinine 2.90 H, Estimated Creat Clear 17, Estimated GFR 16 L*, Est GFR ( Amer) 20 L, Glucose 75, Calcium 9.1, Magnesium 1.4 L, Total Bilirubin 1.0, AST 34, ALT 18, Alkaline Phosphatase 112, Troponin I 0.03, Total Protein 7.3, Albumin 4.2, Globulin 3.1, Albumin/Globulin Ratio 1.4, TSH 15.30 H, Free T4 1.23, Salicylates < 1.0 L, Acetaminophen < 10 L, Plasma/Serum Alcohol < 10 08/09/24 10:18: VBG pH 7.12 L, VBG pCO2 51.2 H, VBG pO2 35.0, VBG HCO3 16.4 L, VBG Total CO2 18.0 L, VBG O2 Saturation 59.4, VBG Base Excess -12.8 L, VBG Lactic Acid 2.8 H, SARS-CoV-2 (PCR) Not detected, Influenza A Untype (PCR) Not detected, Influenza Type B (PCR) Not detected 08/09/24 11:04: Urine Color Yellow, Urine Appearance Clear, Urine pH 5.5, Ur Specific [place] 1.025, Urine Protein 1+ A, Urine Glucose (UA) 2+, Urine Ketones Negative, Urine Blood Trace-i, Urine Nitrate Negative, Urine Bilirubin Negative, Urine Urobilinogen 0.2, Ur Leukocyte Esterase Negative, Urine RBC None, Urine WBC Occasional, Ur Squamous Epith Cells Occasional, Urine Bacteria Trace, Urine Opiates Screen Negative, Urine Methadone Screen Negative, Ur Barbituates Screen Negative, Ur Phencyclidine Scrn Negative, Ur Amphetamines Screen Negative, U Benzodiazepines Scrn Negative, Urine Cocaine Screen Negative, U Marijuana (THC) Screen Negative 08/09/24 15:00: Lactate 0.8 08/09/24 15:17: VBG pH 7.36, VBG pCO2 30.2 L, VBG pO2 38.6, VBG HCO3 16.5 L, VBG Total CO2 17.4 L, VBG O2 Saturation 77.0 H, VBG Base Excess -9.0 L, VBG Lactic Acid 1.6 08/10/24 06:00: VBG pH 7.30 L, VBG pCO2 35.7, VBG pO2 48.2 H, VBG HCO3 17.3 L, VBG Total CO2 18.3 L, VBG O2 Saturation 83.1 H, VBG Base Excess -9.1 L, VBG Lactic Acid 1.8 08/10/24 07:04: WBC 8.7 D, RBC 3.04 L, Hgb 8.4 L D, Hct 27.0 L, MCV 88.8, MCH 27.6, MCHC 31.1 L, RDW 16.0, Plt Count 239, MPV 11.0 H, Neut % (Auto) 64.0, Lymph % (Auto) 26.0, [place] % (Auto) 6.9, Eos % (Auto) 1.8, Baso % (Auto) 0.8, Neut # (Auto) 5.6, Lymph # (Auto) 2.3, [place] # (Auto) 0.6, Eos # (Auto) 0.2, Baso # (Auto) 0.1, Sodium 137, Chloride 114 H, Carbon Dioxide 18 L, BUN 38 H, Creatinine 2.50 H, Estimated Creat Clear 21, Estimated GFR 19 L*, Est GFR ( Amer) 23 L, Glucose 103 H D, Calcium 8.1 L, Magnesium 1.3 L, Total Bilirubin 0.9, AST 28, ALT 15, Alkaline Phosphatase 78, Total Protein 5.3 L D, Albumin 2.7 L D, Globulin 2.6, Albumin/Globulin Ratio 1.0 L, TSH 5.25 H D I & O for Last 24 hours: Intake & Output 08/07/24 08/08/24 08/09/24 08/10/24 23:59 23:59 23:59 23:59 Intake Total 450 / 630 180 / 180 Output Total 0 / 0 0 / 0 Balance 450 / 630 180 / 180 Weight 58.967 kg 61.689 kg Constitutional Constitutional: no acute distress *Routine HEENT Exam Head: Present normocephalic Eye: Present EOMI and PERRL ENT: Present mucous membranes moist *Routine Neck Exam Neck: Present supple; Absent lymphadenopathy *Routine Respiratory Exam Respiratory: Present CTA bilaterally *Routine Cardiovascular Exam Cardiovascular: Present RRR *Routine Abdominal Exam Abdominal: Present soft and normoactive bowel sounds; Absent tenderness *Routine Extremities Exam Extremities: Absent cyanosis, clubbing or edema *Routine Skin Exam Skin: Present warm; Absent rash *Routine Neurological Exam Neurological: Present alert and oriented X3 Results Data Completed and Pending Labs on day of discharge: Labs from last 24 hours 08/10/24 08/10/24 08/09/24 07:04 06:00 15:17 WBC 8.7 D RBC 3.04 L Hgb 8.4 L D Hct 27.0 L MCV 88.8 MCH 27.6 MCHC 31.1 L RDW 16.0 Plt Count 239 MPV 11.0 H Neut % (Auto) 64.0 Lymph % (Auto) 26.0 [place] % (Auto) 6.9 Eos % (Auto) 1.8 Baso % (Auto) 0.8 Neut # (Auto) 5.6 Lymph # (Auto) 2.3 [place] # (Auto) 0.6 Eos # (Auto) 0.2 Baso # (Auto) 0.1 D-Dimer VBG pH 7.30 L 7.36 VBG pCO2 35.7 30.2 L VBG pO2 48.2 H 38.6 VBG HCO3 17.3 L 16.5 L VBG Total CO2 18.3 L 17.4 L VBG O2 Saturation 83.1 H 77.0 H VBG Base Excess -9.1 L -9.0 L VBG Lactic Acid 1.8 1.6 Sodium 137 Potassium Chloride 114 H Carbon Dioxide 18 L Anion Gap BUN 38 H Creatinine 2.50 H Estimated Creat Clear 21 Estimated GFR 19 L* Est GFR ( Amer) 23 L Glucose 103 H D Lactate Calcium 8.1 L Magnesium 1.3 L Total Bilirubin 0.9 AST 28 ALT 15 Alkaline Phosphatase 78 Troponin I Total Protein 5.3 L D Albumin 2.7 L D Globulin 2.6 Albumin/Globulin Ratio 1.0 L TSH 5.25 H D Free T4 Urine Color Urine Appearance Urine pH Ur Specific [place] Urine Protein Urine Glucose (UA) Urine Ketones Urine Blood Urine Nitrate Urine Bilirubin Urine Urobilinogen Ur Leukocyte Esterase Urine RBC Urine WBC Ur Squamous Epith Cells Urine Bacteria Salicylates Urine Opiates Screen Urine Methadone Screen Acetaminophen Ur Barbituates Screen Ur Phencyclidine Scrn Ur Amphetamines Screen U Benzodiazepines Scrn Urine Cocaine Screen U Marijuana (THC) Screen Plasma/Serum Alcohol SARS-CoV-2 (PCR) Influenza A Untype (PCR) Influenza Type B (PCR) 08/09/24 08/09/24 08/09/24 15:00 11:04 10:18 WBC RBC Hgb Hct MCV MCH MCHC RDW Plt Count MPV Neut % (Auto) Lymph % (Auto) [place] % (Auto) Eos % (Auto) Baso % (Auto) Neut # (Auto) Lymph # (Auto) [place] # (Auto) Eos # (Auto) Baso # (Auto) D-Dimer VBG pH 7.12 L VBG pCO2 51.2 H VBG pO2 35.0 VBG HCO3 16.4 L VBG Total CO2 18.0 L VBG O2 Saturation 59.4 VBG Base Excess -12.8 L VBG Lactic Acid 2.8 H Sodium Potassium Chloride Carbon Dioxide Anion Gap BUN Creatinine Estimated Creat Clear Estimated GFR Est GFR ( Amer) Glucose Lactate 0.8 Calcium Magnesium Total Bilirubin AST ALT Alkaline Phosphatase Troponin I Total Protein Albumin Globulin Albumin/Globulin Ratio TSH Free T4 Urine Color Yellow Urine Appearance Clear Urine pH 5.5 Ur Specific [place] 1.025 Urine Protein 1+ A Urine Glucose (UA) 2+ Urine Ketones Negative Urine Blood Trace-i Urine Nitrate Negative Urine Bilirubin Negative Urine Urobilinogen 0.2 Ur Leukocyte Esterase Negative Urine RBC None Urine WBC Occasional Ur Squamous Epith Cells Occasional Urine Bacteria Trace Salicylates Urine Opiates Screen Negative Urine Methadone Screen Negative Acetaminophen Ur Barbituates Screen Negative Ur Phencyclidine Scrn Negative Ur Amphetamines Screen Negative U Benzodiazepines Scrn Negative Urine Cocaine Screen Negative U Marijuana (THC) Screen Negative Plasma/Serum Alcohol SARS-CoV-2 (PCR) Not detected Influenza A Untype (PCR) Not detected Influenza Type B (PCR) Not detected 08/09/24 10:06 WBC 13.5 H RBC 3.79 L Hgb 10.6 L Hct 34.0 L MCV 89.7 MCH 28.0 MCHC 31.2 L RDW 15.9 Plt Count 311 MPV 10.9 H Neut % (Auto) 74.5 Lymph % (Auto) 20.1 [place] % (Auto) 3.9 Eos % (Auto) 0.6 Baso % (Auto) 0.5 Neut # (Auto) 10.1 H Lymph # (Auto) 2.7 [place] # (Auto) 0.5 Eos # (Auto) 0.1 Baso # (Auto) 0.1 D-Dimer 1.19 H VBG pH VBG pCO2 VBG pO2 VBG HCO3 VBG Total CO2 VBG O2 Saturation VBG Base Excess VBG Lactic Acid Sodium 139 Potassium 4.4 Chloride 111 H Carbon Dioxide 17 L Anion Gap 15.4 H BUN 35 H Creatinine 2.90 H Estimated Creat Clear 17 Estimated GFR 16 L* Est GFR ( Amer) 20 L Glucose 75 Lactate Calcium 9.1 Magnesium 1.4 L Total Bilirubin 1.0 AST 34 ALT 18 Alkaline Phosphatase 112 Troponin I 0.03 Total Protein 7.3 Albumin 4.2 Globulin 3.1 Albumin/Globulin Ratio 1.4 TSH 15.30 H Free T4 1.23 Urine Color Urine Appearance Urine pH Ur Specific [place] Urine Protein Urine Glucose (UA) Urine Ketones Urine Blood Urine Nitrate Urine Bilirubin Urine Urobilinogen Ur Leukocyte Esterase Urine RBC Urine WBC Ur Squamous Epith Cells Urine Bacteria Salicylates < 1.0 L Urine Opiates Screen Urine Methadone Screen Acetaminophen < 10 L Ur Barbituates Screen Ur Phencyclidine Scrn Ur Amphetamines Screen U Benzodiazepines Scrn Urine Cocaine Screen U Marijuana (THC) Screen Plasma/Serum Alcohol < 10 SARS-CoV-2 (PCR) Influenza A Untype (PCR) Influenza Type B (PCR) DS: Diagnosis Discharge Diagnosis (1) Syncope: Status: Acute Code(s): R55 - Syncope and collapse (2) Hypothermia: Status: Acute Code(s): T68.XXXA - Hypothermia, initial encounter (3) Metabolic acidosis: Status: Acute Code(s): E87.20 - Acidosis, unspecified Meds Home Medications and Allergies Home Medications ?Medication ?Instructions ?Recorded ?Confirmed ?Type ferrous sulfate 325 mg (65 mg 325 mg PO DAILY 06/06/23 08/14/24 History iron) tablet diphenoxylate-atropine 2.5 1 tab PO Q8HP PRN diarrhea 01/07/24 08/14/24 History mg-0.025 mg tablet (Lomotil) pantoprazole 40 mg tablet,delayed 40 mg PO DAILY 30 days #30 tabs 01/08/24 08/14/24 Rx release sodium bicarbonate 650 mg tablet 650 mg PO BID 05/13/24 08/14/24 History famotidine 40 mg tablet (Pepcid) 40 mg PO DAILY #90 tabs 06/11/24 08/14/24 Rx cholecalciferol (vitamin D3) 25 50 mcg (2 x 25 mcg (1,000 unit)) 07/09/24 08/14/24 Rx mcg (1,000 unit) tablet PO DAILY #90 tabs atorvastatin 40 mg tablet 40 mg PO HS 08/09/24 08/14/24 History colestipol 1 gram tablet 2 g PO HS 08/09/24 08/14/24 History hydralazine 25 mg tablet 25 mg PO TID 08/09/24 08/14/24 History levothyroxine 25 mcg tablet 25 mcg PO DAILYDM 08/09/24 08/14/24 History metoprolol succinate 100 mg 100 mg PO DAILY 08/09/24 08/14/24 History tablet,extended release 24 hr mupirocin 2 % topical ointment 1 applic topical BID 08/09/24 08/14/24 History nitroglycerin 0.3 mg sublingual 0.3 mg sublingual Q5MINP PRN Chest 08/09/24 08/14/24 History tablet Pain dapagliflozin propanediol 5 mg 10 mg (2 x 5 mg) PO DAILY 30 days 08/10/24 08/14/24 Rx tablet (Farxiga) #60 tabs doxycycline hyclate 100 mg capsule 100 mg PO BID infection 14 days 08/14/24 08/14/24 Rx #28 caps New Prescriptions to Start Prescriptions: dapagliflozin propanediol [Farxiga] Maldonado Maxwell Allergies Allergy/AdvReac Type Severity Reaction Status Date / Time No Known Allergies Allergy Verified 08/14/24 09:58 Discharge Plan Disposition Patient Disposition: Home, Self-Care Condition: Fair Follow up Plan Follow up with: Maldonado Parker DO [Primary Care Provider] - 08/13/24 (please call for appointment) Dylon Camilo MD [Staff Physician] - Enter time for follow up (please call for appointment) Prescriptions/Medication Reconciliation: Continued sodium bicarbonate 650 mg tablet 650 mg PO BID famotidine [Pepcid] 40 mg tablet 40 mg PO DAILY Qty: 90 3RF cholecalciferol (vitamin D3) 25 mcg (1,000 unit) tablet 50 mcg PO DAILY Qty: 90 3RF ferrous sulfate 325 mg (65 mg iron) tablet 325 mg PO DAILY levothyroxine 25 mcg tablet 25 mcg PO DAILYDM Patient Comments: TAKE 1 TABLET BY MOUTH ONCE DAILY atorvastatin 40 mg tablet 40 mg PO HS nitroglycerin 0.3 mg tablet, sublingual 0.3 mg sublingual Q5MINP PRN (Reason: Chest Pain) Rx Instructions: do not exceed 3 doses per episode metoprolol succinate 100 mg tablet extended release 24 hr 100 mg PO DAILY hydralazine 25 mg tablet 25 mg PO TID mupirocin 2 % ointment 1 applic topical BID Rx Instructions: FOR 14 DAYS, FILLED 07/28/24. colestipol 1 gram tablet 2 g PO HS diphenoxylate-atropine [Lomotil] 2.5-0.025 mg tablet 1 tab PO Q8HP PRN (Reason: diarrhea) pantoprazole 40 mg Tablet,Delayed Release (Dr/Ec) 40 mg PO DAILY 30 Days Qty: 30 0RF Changed dapagliflozin propanediol [Farxiga] 5 mg tablet 10 mg PO DAILY 30 Days Qty: 60 0RF Discontinued glipizide 10 mg tablet extended release 24hr 10 mg PO DAILY No Action doxycycline hyclate 100 mg capsule 100 mg PO BID 14 Days Qty: 28 0RF Rx Instructions: FOR 14 DAYS, FILLED 07/28/24. Problem Reconciliation Problems Reviewed?: Yes Patient Discharge Instructions Additional Instructions: Please stop taking glipizide as this can put you at high risk for low blood sugars when taking with Farxiga. I have increased her dose of Farxiga. Please follow-up with your PCP for further management of your diabetes. Patient Instructions: Hypothermia Print Language: Cyp[place] Providers Primary Care Provider: Maldonado Parker Admit Provider: Maldonado Maxwell Attending Provider: Maldonado Maxwell
[2024-08-10 09:48] LABS: Anion Gap 9.5 mEq/L (5-15); Potassium 4.5 mmoL/L (3.5-5.1)
--- NOTE | 2024-08-11 14:25 | CARE MANAGER ---
Patient called back and states she is doing well. She denies any questions or concerns. Doesn't have any new meds and will call and schedule appt with PCP and cards when weather is better. INGRID López
== END 2024-08-10 10:54 | disposition home or self-care (01) ==
LOC: ER 12:57 → 2ND 13:10
PROVIDERS: Admitting Provider Student in an Organized Health Care Education/Training Program; Emergency Provider Student in an Organized Health Care Education/Training Program; PCP Internal Medicine; Visit Provider Student in an Organized Health Care Education/Training Program
DX: R55 Syncope and collapse (principal); E16.2 Hypoglycemia, unspecified; T68.XXXA Hypothermia, initial encounter; E11.22 Type 2 diabetes mellitus with diabetic chronic kidney disease; N18.4 Chronic kidney disease, stage 4 (severe); K21.9 Gastro-esophageal reflux disease without esophagitis; Z79.84 Long term (current) use of oral hypoglycemic drugs; Z87.891 Personal history of nicotine dependence
CPT/HCPCS: 36415; 71045; 74176; 80053; 80307; 80320; 80329; 81001; 82803; 83605; 83735; 84439; 84443; 84484; 85025; 85378; 87040; 87636; 93005; 93270; 99291; G0378; G0480; J1650; J7120

== ENCOUNTER 2024-08-19 08:02 | Day surgery (SDC) | payer MEDICARE, MEDICAID, SELFPAY ==
[2024-08-13 16:44] VITALS: BMI 24.3
[2024-08-19 08:14] LABS: Microscopic, Urine URINE MICROSCOPIC (MICROSCOPIC)
[2024-08-19 08:46] LABS: POC Glucose,Bedside 114 (70-110)
[2024-08-19 08:46] LABS: Hematocrit 29.7 % (37.0-47.0); Hemoglobin 9.2 g/dL (12.2-16.2); Mean Corpuscular Hemoglobin 28.2 pg (27.0-31.2); Mean Corpuscular Volume 91.1 fl (81-99); Platelet Count 293 K/mm3 (142-424); Red Blood Count 3.26 M/mm3 (4.20-5.40); Red Cell Distribution Width 15.9 % (11.5-17.5); White Blood Count 10.1 K/mm3 (4.8-10.8)
[2024-08-19] MEDS: APRACLONIDINE 0.5% OPHTH SOLN 5ML OP (08:46)
[2024-08-19] MEDS: TETRACAINE 0.5% OPTH SOL 15ML OP (08:46)
[2024-08-19] MEDS: TROPICAMIDE 1% OPTH SOLN 2ML OP (08:47)
[2024-08-19] MEDS: PHENYLEPHRINE 2.5% OPHTH SOLN 2ML OP (08:47)
[2024-08-19 08:48] VITALS: BP 153/65; PULSE 80; RESP 18; TEMP 36.8; O2SAT 100
[2024-08-19 09:38] LABS: Albumin Level 3.3 g/dl (3.5-5.0); Blood Urea Nitrogen 33 mg/dl (7-17); Calcium 8.8 mg/dl (8.4-10.2); Carbon Dioxide 15 mmol/L (22.0-30.0); Chloride 114 mmol/L (98-107); Creatinine Clearance Estimated 17 mL/min (50-200); Estimated Glomerular Filt Rate 14 ml/min (>60); GFR (African American) 17 ML/MIN (>60); Glucose 131 mg/dl (74-100); Phosphorous 6.1 mg/dl (2.5-4.5); Sodium 140 mmol/L (136-145)
[2024-08-19 09:48] LABS: Intact Parathyroid Hormone 132.1 pg/mL (7.5-53.5)
[2024-08-19 10:06] LABS: Appearance,Urine CLEAR (Clear); Bilirubin,Urine Negative (Negative); Blood, Urine Negative (Negative); Color,Urine YELLOW (Yellow); Glucose,Urine (UA) TRACE (Negative); Ketones,Urine Negative (Negative); Leukocyte Esterase,Urine TRACE (Negative); Nitrate,Urine Negative (Negative); Protein,Urine TRACE (Negative); Specific Gravity, Urine >= 1.030 (1.005-1.030); Urobilinogen,Urine 0.2 EU/dl (0.2)
[2024-08-19 10:20] LABS: Microalbumin/Creatinine Ratio 186.3
[2024-08-19 10:25] LABS: Creatinine,Urine Random 93 mg/dL (Not Estab.)
--- NOTE | 2024-08-19 10:38 | [facility].PROCNOTE ---
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 The patient has noticed that the vision has decreased from the previous good level postop. The patient reports that he/she is having trouble reading and/or driving or that glare is giving them a problem. On exam, the patient was found to have visually significant posterior capsular opacification. The treatment options, risks and benefits were explained and the patient elected to have YAG laser capsulotomy in an attempt to improve the vision. Of note, the best corrected visual acuity is in the 20/30 or worse range by refraction or glare testing. The eye was dilated and 1 drop of 0.5% Iopidine applied. YAG laser energy was applied to the posterior capsular bag with good formation of an opening and no complications were noted. The patient will be seen back for follow up in 2 weeks. 29 pulses, 97 mj.
[2024-08-19 11:33] LABS: Bacteria,Urine Trace /lpf
[2024-08-19 11:37] LABS: Anion Gap 15.9 mEq/L (5-15); Potassium 4.9 mmoL/L (3.5-5.1)
[2024-08-19 16:01] LABS: 25-OH Vitamin D, Total 22.2 ng/mL (30-100)
== END 2024-08-19 09:33 | disposition home or self-care (01) ==
PROVIDERS: Student in an Organized Health Care Education/Training Program; PCP Internal Medicine; Visit Provider Ophthalmology
PROC: (CPT 66821; principal; 2024-08-19 08:30)
DX: H26.492 Other secondary cataract, left eye (principal); E11.621 Type 2 diabetes mellitus with foot ulcer
CPT/HCPCS: 66821; 36415; 80069; 81001; 82043; 82306; 82570; 82962; 83970; 84156; 85027

== ENCOUNTER 2024-10-15 09:42 | Outpatient (CLI) | payer MEDICARE, MEDICAID, SELFPAY ==
[2024-10-15 10:14] LABS: Basophils # 0.1 K/mm3 (0-0.2); Basophils % 0.8 % (0.1-2.0); Eosinophils # 0.4 K/mm3 (0.0-0.4); Hematocrit 28.9 % (37.0-47.0); Lymphocytes # 2.4 K/mm3 (0.7-4.5); Lymphocytes % 24.1 % (10-50); Mean Corpuscular HGB Conc 31.1 g/dL (31.8-35.4); Mean Corpuscular Hemoglobin 28.8 pg (27.0-31.2); Mean Corpuscular Volume 92.3 fl (81-99); Mean Platelet Volume 10.9 fl (7.4-10.4); Monocytes # 0.9 K/mm3 (0.1-1.0); Monocytes % 8.7 % (1.7-9.3); Neutrophils # 6.1 K/mm3 (1.8-7.8); Neutrophils % 61.5 % (37.0-80.0); Platelet Count 285 K/mm3 (142-424); Red Blood Count 3.13 M/mm3 (4.20-5.40); Red Cell Distribution Width 15.3 % (11.5-17.5)
[2024-10-15 11:06] LABS: Iron 98 ug/dL (37-170)
[2024-10-15 11:16] LABS: Total Iron Binding Capacity 229 ug/dL (265-497)
[2024-10-15 12:16] LABS: Ferritin 272 ng/ml (11.1-264)
== END 2024-10-15 23:59 | disposition home or self-care (01) ==
LOC: LAB 09:43
PROVIDERS: PCP Internal Medicine; Visit Provider Student in an Organized Health Care Education/Training Program
DX: N18.32 Chronic kidney disease, stage 3b (principal); D63.1 Anemia in chronic kidney disease
CPT/HCPCS: 36415; 82728; 83540; 83550; 85025

== ENCOUNTER 2024-10-23 10:00 | Outpatient (CLI) | payer MEDICARE, MEDICAID, SELFPAY | END 2024-10-23 23:59 | disposition home or self-care (01) | LOC: LAB.DROPOF 10-24 11:09 | PROVIDERS: PCP Nurse Practitioner; Visit Provider Nurse Practitioner | DX: L97.521 Non-pressure chronic ulcer of other part of left foot limited to breakdown of skin (principal) | CPT/HCPCS: 87070; 87077; 87186; 87205 ==

== ENCOUNTER 2024-12-03 09:40 | Outpatient (CLI) | payer MEDICARE, MEDICAID, SELFPAY ==
[2024-12-03 10:00] LABS: Basophils # 0.1 K/mm3 (0-0.2); Basophils % 0.7 % (0.1-2.0); Eosinophils # 0.2 Kmm3 (0.0-0.4); Hematocrit 31.2 % (37.0-47.0); Hemoglobin 10.1 g/dL (12.2-16.2); Lymphocytes # 3.1 K/mm3 (0.7-4.5); Lymphocytes % 32.9 % (10-50); Mean Corpuscular HGB Conc 32.4 g/dL (31.8-35.4); Mean Corpuscular Hemoglobin 30.4 pg (27.0-31.2); Mean Platelet Volume 10.7 fl (7.4-10.4); Monocytes # 0.8 K/mm3 (0.1-1.0); Monocytes % 8.8 % (1.7-9.3); Neutrophils # 5.3 K/mm3 (1.8-7.8); Neutrophils % 55.2 % (37.0-80.0); Nucleated Red Blood Cells # 0 10^3/uL; Nucleated Red Blood Cells % 0 %; Platelet Count 257 K/mm3 (142-424); Red Blood Count 3.32 M/mm3 (4.20-5.40); Red Cell Distribution Width 13.7 % (11.5-17.5); Red Cell Distribution Width-SD 46.6 fL; White Blood Count 9.5 K/mm3 (4.8-10.8)
== END 2024-12-03 23:59 | disposition home or self-care (01) ==
LOC: LAB 09:42
PROVIDERS: PCP Family Medicine; Visit Provider Student in an Organized Health Care Education/Training Program
DX: N18.4 Chronic kidney disease, stage 4 (severe) (principal)
CPT/HCPCS: 36415; 85025

== ENCOUNTER 2024-12-13 14:58 | Emergency (ER) | payer MEDICARE, MEDICAID, SELFPAY ==
[2024-12-13 15:27] VITALS: BP 149/68; PULSE 68; RESP 16; TEMP 37.1; O2SAT 100; BMI 22.3
[2024-12-13 15:36] LABS: Microscopic, Urine URINE MICROSCOPIC (MICROSCOPIC)
--- NOTE | 2024-12-13 15:41 | ED_ITS ---
Discharge Plan Disposition Patient Disposition: Home, Self-Care Prescriptions Prescriptions: New cefdinir 300 mg capsule 300 mg PO BID 5 Days Qty: 10 0RF No Action sodium bicarbonate 650 mg tablet 650 mg PO BID famotidine [Pepcid] 40 mg tablet 40 mg PO DAILY Qty: 90 3RF cholecalciferol (vitamin D3) 25 mcg (1,000 unit) tablet 50 mcg PO DAILY Qty: 90 3RF colestipol 1 gram tablet 2 g PO BID Qty: 360 3RF (DME) lancets [FreeStyle Lancets] 28 gauge misc See Rx Instructions .Route Qty: 100 5RF Rx Instructions: bid testing. e11.9 isosorbide dinitrate 20 mg tablet 20 mg PO BID 30 Days Qty: 60 2RF Rx Instructions: allow nitrate-free interval of 12-14 hrs per 24-hr period (DME) Dexcom G7 Sensor Device See Rx Instructions .Route Qty: 1 6RF Rx Instructions: As directed (DME) Dexcom G7 Decorator Consultant Misc See Rx Instructions .Route Qty: 1 0RF Rx Instructions: As directed (DME) Omnipod 5 G6-G7 Pods (Gen 5) Cartridge See Rx Instructions .Route Qty: 5 1RF Rx Instructions: As directed ferrous sulfate 325 mg (65 mg iron) tablet 325 mg PO DAILY doxycycline hyclate 100 mg capsule 100 mg PO BID 14 Days Qty: 28 0RF mupirocin 2 % ointment 1 applic topical BID 14 Days Qty: 15 0RF clindamycin HCl 300 mg capsule 300 mg PO TID 14 Days Qty: 42 0RF levothyroxine 25 mcg tablet 25 mcg PO DAILYDM Patient Comments: TAKE 1 TABLET BY MOUTH ONCE DAILY atorvastatin 40 mg tablet 40 mg PO HS nitroglycerin 0.3 mg tablet, sublingual 0.3 mg sublingual Q5MINP PRN (Reason: Chest Pain) Rx Instructions: do not exceed 3 doses per episode metoprolol succinate 100 mg tablet extended release 24 hr 100 mg PO DAILY hydralazine 25 mg tablet 25 mg PO TID dapagliflozin propanediol [Farxiga] 5 mg tablet 10 mg PO DAILY 30 Days Qty: 60 0RF diphenoxylate-atropine [Lomotil] 2.5-0.025 mg tablet 1 tab PO Q8HP PRN (Reason: diarrhea) pantoprazole 40 mg Tablet,Delayed Release (Dr/Ec) 40 mg PO DAILY 30 Days Qty: 30 0RF Referrals Follow up/Referrals: Johnny Parnell MD [Primary Care Provider] - See instructions Activity Restrictions/Add. Instructions Additional Instructions/Restrictions: Antibiotic twice daily for 5 days. Call your family doctor to establish care for this visit to the emergency department and schedule follow-up within 48 hours to ensure improvement. If you have any worsening of your condition or any other concerning signs or symptoms, return to the emergency department or your primary care doctor for further evaluation. Clinical Impressions Clinical Impression: Cystitis Instructions Patient Instructions: DI for Urinary Tract Infection (UTI), DI for Urinary Tract Infection in Children Print Language Print Language: Slovak Discharge ED Provider: Derrick Hancock General Adult HPI General Chief complaint: Urogenital-Female Stated complaint: Poss. kidney infection Time Seen by Provider: 12/13/24 15:21 Mode of Arrival: Ambulatory Source of Information: Patient Description of Symptoms (Recalled from ER Triage Doc. by RN): patient states she has had burning with urination and frequent urination sine this morning and suprapubic pressure History of Present Illness HPI narrative: Please note that above description of symptoms, in this electronic medical record under categorization of recalled from ER triage doctor by RN are reflective of an initial nursing assessment, however, is not reflective of my full history and physical exam that was personally taken and clarified. Consequentially, this preceding description of symptoms, which may include the patient's categorized chief complaint in the EMR, do not reflect my personal clinical impression, and the ultimate description of history of present illness and patient stated complaints should be deferred to this section of the note. Unless stated otherwise or congruent with this section of the note, additional signs, symptoms, or incongruence should be interpreted as inaccurate with my clinical impression. Related Data Home Medications ?Medication ?Instructions ?Recorded ?Confirmed ferrous sulfate 325 mg (65 mg 325 mg PO DAILY 06/06/23 11/06/24 iron) tablet diphenoxylate-atropine 2.5 1 tab PO Q8HP PRN diarrhea 01/07/24 11/06/24 mg-0.025 mg tablet (Lomotil) sodium bicarbonate 650 mg tablet 650 mg PO BID 05/13/24 11/06/24 atorvastatin 40 mg tablet 40 mg PO HS 08/09/24 11/06/24 hydralazine 25 mg tablet 25 mg PO TID 08/09/24 11/06/24 levothyroxine 25 mcg tablet 25 mcg PO DAILYDM 08/09/24 11/06/24 metoprolol succinate 100 mg 100 mg PO DAILY 08/09/24 11/06/24 tablet,extended release 24 hr nitroglycerin 0.3 mg sublingual 0.3 mg sublingual Q5MINP PRN Chest 08/09/24 11/06/24 tablet Pain Previous Rx's ?Medication ?Instructions ?Recorded pantoprazole 40 mg tablet,delayed 40 mg PO DAILY 30 days #30 tabs 01/08/24 release famotidine 40 mg tablet (Pepcid) 40 mg PO DAILY #90 tabs 06/11/24 cholecalciferol (vitamin D3) 25 50 mcg (2 x 25 mcg (1,000 unit)) 07/09/24 mcg (1,000 unit) tablet PO DAILY #90 tabs dapagliflozin propanediol 5 mg 10 mg (2 x 5 mg) PO DAILY 30 days 08/10/24 tablet (Farxiga) #60 tabs lancets 28 gauge (FreeStyle #100 ea 08/27/24 Lancets) isosorbide dinitrate 20 mg tablet 20 mg PO BID 30 days #60 tabs 08/28/24 blood-glucose sensor (Dexcom G7 #1 ea 09/01/24 Sensor device) blood-glucose,keno writer/runner,cont #1 ea 09/01/24 (Dexcom G7 Decorator Consultant) insulin pump cart,auto,BT,G6/7 #5 ea 09/01/24 (Omnipod 5 G6-G7 Pods (Gen 5) subcutaneous cartridge) colestipol 1 gram tablet 2 g (2 x 1 gram) PO BID #360 tabs 10/15/24 doxycycline hyclate 100 mg capsule 100 mg PO BID infection 14 days 10/23/24 #28 caps mupirocin 2 % topical ointment 1 applic topical BID infection 14 10/23/24 days #15 grams clindamycin HCl 300 mg capsule 300 mg PO TID infection 14 days 10/28/24 #42 caps cefdinir 300 mg capsule 300 mg PO BID 5 days #10 caps 12/13/24 Allergies Allergy/AdvReac Type Severity Reaction Status Date / Time No Known Allergies Allergy Verified 11/06/24 11:22 [facility] Disclaimer: The information contained in this section may have been updated after the patient was seen, as this information can be updated by other users. Medical History Diarrhea Insulin dependent diabetes mellitus Type 2 diabetes mellitus Syncope Vomiting General weakness JAMAR (acute kidney injury) UTI (urinary tract infection) Calculus of left ureter Lower abdominal pain Change in bowel habits Incurvated nail Generalized abdominal pain Nocturnal diarrhea Chronic diarrhea Diabetic diarrhea Nausea & vomiting Vomiting Vomiting Atypical angina Elevated troponin UTI (urinary tract infection), bacterial Calcaneal spur of left foot Cellulitis of great toe of left foot Diabetic ulcer of toe of left foot associated with type 2 diabetes mellitus Diabetic ulcer of toe of left foot Callus of foot Acquired hammertoes of both feet Claudication Abnormal ankle brachial index (ALESSANDRO) Diabetic foot Onychodystrophy Vitamin D deficiency Anemia History of medication noncompliance Diabetes mellitus Non-STEMI (non-ST elevated myocardial infarction) Abdominal pain Dyspnea CKD stage 3 due to type 2 diabetes mellitus PVD (peripheral vascular disease) Edema of left lower extremity Wound of left foot Elevated bilirubin Typical angina Hypothyroidism Hyperkalemia Type 2 diabetes mellitus with diabetic polyneuropathy, without long-term current use of insulin Decreased pulses in feet Neuropathy Anxiety HLD (hyperlipidemia) Surgical History History of coronary artery stent placement H/O tubal ligation Hx laparoscopic cholecystectomy Family History Other No significant family history Social History Smoking Status: Never smoker alcohol intake: never substance use type: denies use current occupational status: unemployed Travel in the last 8 weeks?: None household members: significant other housing: house current occupational exposures/hazards: No caffeine: Yes Have you lived/traveled outside [place] in past 30 days?: No Contact w/someone who lives/traveled outside [place] past 30 days?: No Exposure to someone with infectious disease in past 14 days?: No Do you have a fever (greater than 100.4 F or 38 C)?: No Have you tested positive for COVID-19?: No Exposed to someone with COVID-19 in past 14 days?: No Do you have a sore throat?: No Do you have a cough?: No Do you have any weakness?: No Do you have any diarrhea?: No Are you experiencing any unusual bleeding?: No Do you have any muscle aches/pain?: No Do you have any abdominal pain?: No Are you experiencing loss of taste or smell?: No Other Medical History Have you received the Flu Vaccine for this season: No Have you received the Pneumonia Vaccine: No ROS Obtained: Yes All systems reviewed & no additional complaints except as documented Physical Exam General General appearance: alert Head Head exam: atraumatic and normocephalic Eye Eye exam: Present normal appearance, PERRL and EOMI Neck Neck exam: Present normal inspection, full ROM and trachea midline Respiratory Respiratory exam: Absent respiratory distress, wheezes, stridor, accessory muscle use or prolonged expiratory phase Cardiovascular Cardiovascular exam: Present other (Pulses equal symmetric in upper and lower extremities) Abdominal Exam Abdominal exam: Present soft; Absent distention, tenderness or pulsatile mass Extremities Exam Extremities exam: Absent edema Neurological Exam Neurological exam: Present alert, oriented X3 and CN II-XII intact; Absent motor sensory deficit Skin Skin exam: Present warm and dry; Absent diaphoresis or erythema Medical Decision Making Medical Records Medical records reviewed: Yes I reviewed the patient's medical records. Screening: Per USPSTF and CDC recommendations, given the prevalence of disease in our region, it is our hospital?s policy to screen for HIV and viral Hepatitis for all patients aged 18 and over and those with ongoing risk factors. George Inquiry Pt receiving controlled substance: No George was queried for this patient: No Vital Signs: 12/13/24 15:27 12/13/24 16:16 Temperature 98.7 F Temperature Source Oral Pulse Rate 62 Pulse Rate [Right Radial] 68 Respiratory Rate 16 Blood Pressure 168/69 H Blood Pressure [Right Arm] 149/68 H Blood Pressure Mean [Right Arm] 95 Blood Pressure Source [Right Arm] Automatic Cuff Blood Pressure Position [Right Arm] Sitting 02 Sat by Pulse Oximetry 100 100 Oxygen Delivery Method Room Air Room Air Lab Data Lab Results 12/13/24 15:19: Urine Color Yellow, Urine Appearance Clear, Urine pH 6.0, Ur Specific [place] 1.025, Urine Protein 2+ A, Urine Glucose (UA) 3+, Urine Ketones Negative, Urine Blood Trace-i, Urine Nitrate Negative, Urine Bilirubin Negative, Urine Urobilinogen 0.2, Ur Leukocyte Esterase 1+ A, Urine RBC 3-5, Urine WBC 10- 20, Ur Squamous Epith Cells 3-5, Urine Bacteria 1+ Orders (Tests/Meds): ED MEDICATIONS Discontinued Medications Generic Name Dose Route Start Last Admin Trade Name Vernq PRN Reason Stop Dose Admin Cefdinir 300 mg 12/13/24 16:17 12/13/24 16:26 Cefdinir 300mg Capsule PO 12/13/24 16:18 300 mg ONCE ONE Administration ORDERS Category Date Time Status HIV Combo Stat Lab 12/13/24 15:31 Ordered Hepatitis C Ab Qual. W/ RFX Stat Lab 12/13/24 15:31 Ordered UA [Urinalysis and Microscopic] Stat Lab 12/13/24 15:19 Completed Urine Culture Stat Micro 12/13/24 15:19 Received Medical Decision Narrative: 69-year-old female of hypertension, hyperlipidemia, CKD, CAD, hypothyroidism presenting with dysuria. She states that dysuria started yesterday, 12/12. Tried to schedule appointment to see family doctor, appointment is coming up on the , but continuing to have worsening burning today. Denies abdominal pain, fevers, chills, flank pain, nausea, vomiting. She states she has dysuria, frequency and urgency. No hematuria. Still tolerating plenty of p.o. intake and urinating per normal, although she is urinating more frequently and in smaller volumes. History was obtained via conversation with patient. On arrival, patient hemodynamically stable, alert, oriented x4, appropriate, GCS 15, moving all extremities spontaneously, pupils equal and reactive to light. Full physical exam performed and significant for very clinically well. Abdomen is soft, nontender, nondistended. No flank tenderness. No overlying skin change. Hemodynamically stable, afebrile, normotensive. Differential includes lower urinary tract infection, cystitis, less likely be nephrolithiasis, urosepsis, pyelonephritis, obstructive pathology, acute renal failure, among others. Patient placed on continuous cardiac monitoring and continuous pulse ox with initial blood pressure 149/68, heart rate 88, saturation 100% on room air. Conservative workup initiated with urinalysis. On independent interpretation, patient has bacteria, white blood cells, leuk esterase. Hematologic labs were considered, as well as CT scan of the abdomen pelvis, but patient not having systemic signs or symptoms, urine is still yellow, non-malodorous, still urinating a normal amount, per patient although it is in different frequencies and volumes. Still tolerating p.o. intake, no flank tenderness, etc. Not deemed necessary at this time. On reevaluation, patient tolerated cefdinir without issue. Given patient's history, physical exam, labs, this most likely represents acute cystitis. Because patient at baseline without signs or symptoms of clinical decompensation, deemed appropriate for discharge. Results were relayed to patient who voiced understanding and were agreeable to outpatient management and follow up. I discussed my clinical impression with patient and answered all ques tions. At this time, the evidence for any other entities in the differential is insufficient to warrant any further testing or ED observation. This was explained as well. Advisory was given that persistent or worsening symptoms require further evaluation. I confirmed the understanding of this discussion. Accounts Clerk disclaimer Much of this encounter note is an electronic degreasing solution mixer spoken language to printed text. Electronic degreasing solution mixer of the spoken language may permit errors. Although I have reviewed the note, some errors may still exist. Critical Care Critical Care Time Critical Care Time: No
[2024-12-13 15:42] LABS: Appearance,Urine CLEAR (Clear); Bilirubin,Urine Negative (Negative); Blood, Urine TRACE-I (Negative); Color,Urine YELLOW (Yellow); Glucose,Urine (UA) 3+ (Negative); Ketones,Urine Negative (Negative); Leukocyte Esterase,Urine 1+ (Negative); Nitrate,Urine Negative (Negative); Protein,Urine 2+ (Negative); Specific Gravity, Urine 1.025 (1.005-1.030); Urobilinogen,Urine 0.2 EU/dl (0.2)
[2024-12-13 16:15] LABS: Bacteria,Urine 1+ /lpf
[2024-12-13 16:16] VITALS: BP 168/69; PULSE 62; O2SAT 100
[2024-12-13] MEDS: CEFDINIR 300MG CAPSULE 300 MG PO (16:26)
[2024-12-13 17:14] VITALS: BP 135/95; PULSE 95; RESP 15; TEMP 37.1; O2SAT 96
--- NOTE | 2024-12-13 17:17 | PC.NURSE ---
call made to [facility] [phone] for pts transportation home.
--- NOTE | 2024-12-17 17:44 | PC.NURSE ---
I reviewed pt's urine culture results with Dr Sebastien Pruitt. Pt is on appropriate abx, ntd.
== END 2024-12-13 17:15 | disposition home or self-care (01) ==
PROVIDERS: Emergency Provider Emergency Medicine; PCP Family Medicine
DX: N30.00 Acute cystitis without hematuria (principal); R30.0 Dysuria; R39.15 Urgency of urination
CPT/HCPCS: 81001; 87086; 87088; 87186; 99283

== ENCOUNTER 2025-01-06 10:18 | Outpatient (CLI) | payer MEDICARE, MEDICAID, SELFPAY ==
[2025-01-06 10:23] LABS: Microscopic, Urine URINE MICROSCOPIC (MICROSCOPIC)
[2025-01-06 10:46] LABS: Appearance,Urine SL CLOUDY (Clear); Bilirubin,Urine Negative (Negative); Blood, Urine TRACE-I (Negative); Color,Urine YELLOW (Yellow); Glucose,Urine (UA) 3+ (Negative); Hematocrit 35.9 % (37.0-47.0); Hemoglobin 11.3 g/dL (12.2-16.2); Ketones,Urine Negative (Negative); Leukocyte Esterase,Urine Negative (Negative); Mean Corpuscular HGB Conc 31.5 g/dL (31.8-35.4); Mean Corpuscular Hemoglobin 29.2 pg (27.0-31.2); Mean Corpuscular Volume 92.8 fl (81-99); Nitrate,Urine Negative (Negative); Nucleated Red Blood Cells # 0 10^3/uL; Nucleated Red Blood Cells % 0 %; Platelet Count 273 K/mm3 (142-424); Protein,Urine 2+ (Negative); Red Blood Count 3.87 M/mm3 (4.20-5.40); Red Cell Distribution Width 14.1 % (11.5-17.5); Urobilinogen,Urine 0.2 EU/dl (0.2)
[2025-01-06 10:53] LABS: Creatinine,Urine Random 96 mg/dL (Not Estab.)
[2025-01-06 10:56] LABS: Squamous Epithelial Cell,Urine Occasional #/hpf (0-5); WBC,Urine Occasional #/hpf (0-3)
[2025-01-06 11:06] LABS: Bacteria,Urine Trace /lpf
[2025-01-06 11:07] LABS: Albumin Level 3.9 g/dl (3.5-5.0); Chloride 113 mmol/L (98-107); Potassium 5.3 mmoL/L (3.5-5.1); Sodium 137 mmol/L (136-145)
[2025-01-06 11:10] LABS: Anion Gap 16.3 mEq/L (5-15); Blood Urea Nitrogen 45 mg/dl (7-17); Calcium 8.8 mg/dl (8.4-10.2); Carbon Dioxide 13 mmol/L (22.0-30.0); Estimated Glomerular Filt Rate 13 ml/min (>60); GFR (African American) 16 ML/MIN (>60); Glucose 264 mg/dl (74-100); Iron 90 ug/dL (37-170); Phosphorous 6.8 mg/dl (2.5-4.5)
[2025-01-06 11:19] LABS: Total Iron Binding Capacity 211 ug/dL (265-497)
[2025-01-06 11:46] LABS: Ferritin 226 ng/ml (11.1-264)
== END 2025-01-06 23:59 | disposition home or self-care (01) ==
LOC: LAB 10:19
PROVIDERS: PCP Family Medicine; Visit Provider Student in an Organized Health Care Education/Training Program
DX: N18.4 Chronic kidney disease, stage 4 (severe) (principal); D63.1 Anemia in chronic kidney disease
CPT/HCPCS: 36415; 80069; 81001; 82570; 82728; 83540; 83550; 84156; 85027

== ENCOUNTER 2025-02-20 08:48 | Outpatient (CLI) | payer MEDICARE, MEDICAID, SELFPAY ==
--- OUTSIDE RECORDS SUMMARY | 2025-01-09 13:20 | XMS_ITS | Encounter Summary ---
Author Organization Healthcare Address [address] [place] [address] Care Team Providers Care Deckhand Tuna Boat Name Role Phone Maldonado Parker DO Primary Care Provider [phone] Encounter Details Date Type Department Care Team (Late st Contact Info) Description 01/09/2025 1:20 PM EDT Office Visit [facility] [address] [place] [address] Dieter Interiano MD [address] [place] [phone] Metabolic acidosis (Primary Dx); CKD (chronic kidney disease) stage 4, GFR 15-29 ml/min ([facility]); Mixed hyperlipidemia; Iron deficiency anemia due to chronic blood loss; Anemia due to chronic kidney disease, unspecified CKD stage; Type 2 diabetes mellitus with stage 4 chronic kidney disease, unspecified whether 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 machine operator helper insulin 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 ([facility]); Chronic kidney disease-mineral and bone disorder (CKD-MBD); Acute kidney injury superimposed on CKD ([facility]) Social History Tobacco Use Types Packs/Day Years Used Date Smoking Tobacco: Former Passive Smoke Exposure: Past Smokeless Tobacco: Never Tobacco Cessation:Counseling Given: Not Answered Alcohol Use Standard Drinks/Week Comments Never 0 (1 standard drink = 0.6 oz pur e alcohol) Comments No Sex and Gender Information Value Date Recorded Sex Assigned at Not on file Legal Sex Female 8:09 PM EDT Gender Identity Not on file Sexual Orientation Not on file documented as of this encounter Last Filed Vital Signs Vital Sign Reading Time Taken Comments Blood Pressure 118/62 01/09/2025 1:20 PM EDT Pulse 68 01/09/2025 1:20 PM EDT Temperature - - Respiratory Rate 18 01/09/2025 1:20 PM EDT Oxygen Saturation 100% 01/09/2025 1:20 PM EDT Inhaled Oxygen Concentration - - Weight 59.9 kg (132 lb) 01/09/2025 1:20 PM EDT Height 157.5 cm (5' 2 ) 01/09/2025 1:20 PM EDT Body Mass Index 24.14 01/09/2025 1:20 PM EDT documented in this encounter Miscellaneous Notes * Progress Notes - Dieter Interiano MD - 01/09/2025 1:20 PM EDT SUBJECTIVE Radha Anders is a 69 y.o. female who presents for follow-up of CKD 4. Reports she developed hematemesis in the past month. Feeling the same today. No swelling. Does not feel dehydrated. Only drinks about 2 bottles of watera day. No changes to medications. She only takes 1 of the sodium bicarb pills a day. Denies hematuria, dysuria, abd pain, SOA, CP. OBJECTIVE Vitals: 01/09/25 1320 BP: 118/62 Pulse: 68 Resp: 18 SpO2: 100% PHYSICAL EXAMINATION Gen: NAD, well-developed HEENT: AT/NC Neck: trachea midline CV: RRR Pulm: no increased work of breathing, symmetric chest expansion, good inspiratory/expiratory effort Neuro: alert, interactive, cortical function grossly intact LAB RESULTS Labs from 08/10/2024 available in media reviewed by me on 01/09/2025 CBC: WBC 87. HGB 8.4, PLT 239 RFP: Na 137, K 4.5, Cl 114, Cr 2.5, GFR 19, BUN 38, Mg 1.3, Ca 8.1, Alb 2.7, UA 1+ pro, 2+ glu 01/06/25 CBC: WBC 10.0, HGB 11.3, PLT 273 RFP: Na 137, K 5.3, Cl 113, CO2 13, BUN 45, CR 3.5, GFR 13, Ca 8.8, Phos 6.8, Fe 90, TIBC 211, Tsat42%, Ferritin 226, Alb 3.9 Ur creat 96, total prot 91 UA 2+ protein, 3+ glu ASSESSMENT/PLAN Assessment: #JAMAR on CKD4 - dehydration? #CKD 4: due to DM 2. Worsened Cr 2.0-2.5 baseline. Most recent cr 3.5 eGFR 13 No major issues with electrolytes Metabolic acidosis - controlled with oral bicarb supplement goal 22-24 Euvolemic on exam. Not on diuretics Anatomy - normal Urine: Mild proteinuria less than 0.5 g/day on Lisinopirl 2.5 Risk factor reduction: DM control, HTN control HTN in CKD -BP at goal today <130/80 -on lisinopril 2.5mg daily Proteinuria - Proteinuria: mild. UPC 0.2-0.5 mg/mg. -On lisinopril 2.5 mg, per pt report. -on [id number] Farxiga ? Metabolic Acidosis: worsened sCO2 22, now at 13, asymptomatic Only taking 1x 650mg daily bicarb Hyperkalemia: resolved K improved to normal limit with patiromer Anemia in CKD/ Iron Def Anemia: Hb 11 g/dL - improved now on oral iron Hx of IV iron infusions CKD-MBD/ Mild Hyperphosphatemia: PTH 100, vit D25OH 38 which has improved since starting cholecalciferol. Phos 5.1. T2DM: uncontrolled. Past A1c 9.8%. -on Farxiga 5mg Plan/ Recs: - Kidney function worsened unclear reason. Appears euvolemic, but does not drink much fluids at home so I have encouraged her to drink at least 48 oz of fluids. - continue on Farxiga 5mg daily and lisinopril 5mg daily for now - if no improvement in Cr in repeat labs then may need to STOP her farxiga - INCREASE Na bicarb 1300 mg BID - Hgb improved to >10 on SANJAY. Holding this months dose. Repeat lbas in 4 weeks to determine needto restart - monitor BP. Encouraged to get home BP monitiring - continue cholecalciferol 25 mcg daily. RTC in 3-4 months with sister Orders Placed This Encounter Procedures CBC W/O Differential Standing Status: Future Expected Date: 04/09/2025 Expiration Date: 07/13/2026 [facility] Urinalysis with reflex microscopic (Culture NOT Included) Standing Status: Future Expected Date: 04/09/2025 Expiration Date: 07/13/2026 [facility] Immediate Vitamin D 25 Hydroxy Standing Status: Future Expected Date: 04/09/2025 Expiration Date: 07/13/2026 Release to patient in [facility]: Immediate PTH Intact Total Standing Status: Future Expected Date: 04/09/2025 Expiration Date: 07/13/2026 Release to patient in [facility]: Immediate Albumin-creatinine ratio, urine, random Standing Status: Future Expected Date: 04/09/2025 Expiration Date: 07/13/2026 Release to patient in [facility]: Immediate Protein, Random, Urine with Creatinine Standing Status: Future Expected Date: 04/09/2025 Expiration Date: 07/13/2026 Release to patient in [facility]: Immediate Renal Function Panel, Plasma Standing Status: Future Expected Date: 04/09/2025 Expiration Date: 07/13/20[facility] Renal function panel Standing Status: Future Expected Date: 02/06/2025 Expiration Date: 07/13/2026 Release to patient in [facility]: Immediate [1] CBC Standing Status: Future Expected Date: 02/06/2025 Expiration Date: 07/13/2026 Release to patient in [facility]: Immediate [1] Problem List Items Addressed This Visit CKD (chronic kidney disease) stage 4, GFR 15-29 ml/min ([facility]) Relevant Medications sodium bicarbonate 650 MG tablet Other Relevant Orders CBC W/O Differential Urinalysis with reflex microscopic (Culture NOT Included) Vitamin D 25 Hydroxy PTH Intact Total Albumin-creatinine ratio, urine, random Protein, Random, Urine with Creatinine Renal Function Panel, Plasma Renal function panel CBC 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 ([facility]) Iron deficiency anemia due to chronic blood loss Mixed hyperlipidemia Acute kidney injury superimposed on CKD ([facility]) Other Visit Diagnoses Metabolic acidosis - Primary Relevant Medications sodium bicarbonate 650 MG tablet Other Relevant Orders CBC W/O Differential Urinalysis with reflex microscopic (Culture NOT Included) Vitamin D 25 Hydroxy PTH Intact Total Albumin-creatinine ratio, urine, random Protein, Random, Urine with Creatinine Renal Function Panel, Plasma Renal function panel CBC Anemia due to chronic kidney disease, unspecified CKD stage Relevant Orders CBC W/O Differential Urinalysis with reflex microscopic (Culture NOT Included) Vitamin D 25 Hydroxy PTH Intact Total Albumin-creatinine ratio, urine, random Protein, Random, Urine with Creatinine Renal Function Panel, Plasma Note to Patient: The Cure Act makes [...] documented in this encounter Plan of Treatment Scheduled Orders Name Type Priority Associated Diagnoses Orde r Schedule CBC W/O Differential Lab Routine CKD (chronic kidney disease) stage 4, GFR 15-29 ml/min (CMS/HCC) Metabolic acidosis Anemia due to chronic kidney disease, unspecified CKD stage Expected: 04/09/2025 (Approximate), Expires: 07/13/2026 Urinalysis with reflex microscopic (Culture NOT Included) Lab Routine CKD (chronic kidney disease) stage 4, GFR 15-29 ml/min (CMS/HCC) Metabolic acidosis Anemia due to chronic kidney disease, unspecified CKD stage Expected: 04/09/2025 (Approximate), Expires: 07/13/2026 Vitamin D 25 Hydroxy Lab Routine CKD (chronic kidney disease) stage 4, GFR 15-29 ml/min (CMS/HCC) Metabolic acidosis Anemia due to chronic kidney disease, unspecified CKD stage Expected: 04/09/2025 (Approximate), Expires: 07/13/2026 PTH Intact Total Lab Routine CKD (chronic kidney disease) stage 4, GFR 15-29 ml/min (CMS/HCC) Metabolic acidosis Anemia due to chronic kidney disease, unspecified CKD stage Expected: 04/09/2025 (Approximate), Expires: 07/13/2026 Albumin-creatinine ratio, urine, random Lab Routine CKD (chronic kidney disease) stage 4, GFR 15-29 ml/min (CMS/HCC) Metabolic acidosis Anemia due to chronic kidney disease, unspecified CKD stage Expected: 04/09/2025 (Approximate), Expires: 07/13/2026 Protein, Random, Urine with Creatinine Lab Routine CKD (chronic kidney disease) stage 4, GFR 15-29 ml/min (CMS/HCC) Metabolic acidosis Anemia due to chronic kidney disease, unspecified CKD stage Expected: 04/09/2025 (Approximate), Expires: 07/13/2026 Renal Function Panel, Plasma Lab Routine CKD (chronic kidney disease) stage 4, GFR 15-29 ml/min ([facility]) Metabolic acidosis Anemia due to chronic kidney disease, unspecified CKD stage Expected: 04/09/2025 (Approximate), Expires: 07/13/2026 Renal function panel Lab Routine CKD (chronic kidney disease) stage 4, GFR 15-29 ml/min ([facility]/HCC) Metabolic acidosis Expected: 02/06/2025 (Approximate), Expires: 07/13/2026 CBC Lab Routine CKD (chronic kidney disease) stage 4, GFR 15-29 ml/min ([facility]/HCC) Metabolic acidosis Expected: 02/06/2025 (Approximate), Expires: 07/13/2026 documented as of this encounter Visit Diagnoses Diagnosis Metabolic acidosis- Primary Acidosis CKD (chronic kidney disease) stage 4, GFR 15-29 ml/min ([facility]/HCC) Chronic kidney disease, Stage IV (severe) Mixed hyperlipidemia Iron deficiency anemia due to chronic blood loss Iron deficiency anemia secondary to blood loss (chronic) Anemia due to chronic kidney disease, unspecified CKD stage Type 2 diabetes mellitus with stage 4 chronic kidney disease, unspecified whether skilled nursing insulin use ([facility]) Chronic kidney disease-mineral and bone disorder (CKD-MBD) Acute kidney injury superimposed on CKD ([facility]) documented in this encounter Additional Health Concerns Assessment Noted Time A fall risk assessment has been complete d for the patient 10/15/2023 2:09 PM EDT A Body Mass Index follow-up plan has been documented for the patient 01/09/2025 1:58 PM EDT documented as of this encounter Care Teams Deckhand Tuna Boat Relationship Specialty Start Date End Date Maldonado Parker DO [address] [place] [address] PCP - General 04/24/24 documented as of this encounter
--- OUTSIDE RECORDS SUMMARY | 2025-02-20 08:54 | XMS_ITS | Encounter Summary ---
Author Organization Healthcare Address [address] [id number] Care Team Providers Care Oil Dispenser Name Role Phone Maldonado Parker DO Primary Care Provider [phone] Encounter Details Date Type Department Care Team (Late st Contact Info) Description 02/10/2025 Orders Only [facility] [address] [place] [address] Zaynab So Social History Tobacco Use [...] as of this encounter Plan of Treatment Not on file documented as of this encounter Visit Diagnoses Not on filedocumented in this encounter Additional Health Concerns Assessment Noted Time A fall risk assessment has been complete d for the patient 10/15/2023 2:09 PM EDT A Body Mass Index follow-up plan has been documented for the patient 01/09/2025 1:58 PM EDT documented as of this encounter Care Teams Oil Dispenser Relationship Specialty Start Date End Date Maldonado Parker DO [address] [facility] [place] [address] PCP - General 04/24/24 documented as of this encounter
--- OUTSIDE RECORDS SUMMARY | 2025-02-20 08:54 | XMS_ITS | Clinical Summary ---
Author Organization Healthcare Address [address] [place] [address] Care Team Providers Care Asphalt Heater Tender Name Role Phone Maldonado Parker DO Primary Care Provider [phone] Allergies No known active allergies Medications Multiple [...] BLOOD THINNER 3 Active ergocalciferol 1.25 MG (03058 UT) capsule Take 1 capsule (50,000 Units) [...] 3 DOSES IN 15 MINUTES 4 Active famotidine (Pepcid) 40 MG tablet 1 [...] each day. 90 tablet 3 4 Active ferrous sulfate 325 (65 Fe) MG tabletIndication s:Iron deficiency anemia due to chronic blood loss Take 1 tablet (325 mg) by mouth 1 (one) time each day. 90 tablet 3 5 Active darbepoetin carey (Aranesp, Albumin Free,) solution prefilled syringeIndicatio ns:CKD (chronic kidney disease) stage 4, GFR 15-29 ml/min (CMS/HCC),Anemia due to chronic kidney disease, unspecified CKD stage Inject 0.42 mL (25 mcg) under the skin every 28 (twenty-eight ) days. 0.42 mL 3 5 Active sodium bicarbonate 650 MG tabletIndication s:CKD (chronic kidney disease) stage 4, GFR 15-29 ml/min (CMS/HCC),Metabo lic acidosis Take 2 tablets by mouth 2 times a day. 360 tablet 3 5 01/10/20 26 Active Active Problems Problem Noted Date Diagnosed Date Acute kidney injury superimposed on CKD 01/10/20 25 Iron deficiency anemia due to chronic blood [...] Encounters Date Type Department Care Team Description 02/10/2025 Orders Only [facility] [address] [place] [address] JudahZaynab 01/09/2025 1:20 PM EDT Office Visit [facility] [address] [place], [place] [address] Dieter Interiano MD Metabolic acidosis (Primary Dx); CKD (chronic kidney disease) stage 4, GFR 15-29 ml/min ([facility]); Mixed hyperlipidemia; Iron deficiency anemia due to chronic blood loss; Anemia due to chronic kidney disease, unspecified CKD stage; Type 2 diabetes mellitus with stage 4 chronic kidney disease, unspecified whether shelter insulin use (CMS/HCC); Chronic kidney disease-mineral and bone disorder (CKD-MBD); Acute kidney injury superimposed on CKD ([facility]/HCC) 01/09/2025 Travel 11/24/2024 Telephone [facility] Nephrology, Bone & Mineral Metabolism [address], [address] [place] [address] Rita Escamilla, PharmD 2024 Telephone [facility] [address] [place] [address] Jazmine Garza, PharmD from Last 3 Months Immunizations Immunization Administration Dates Next Due Hep A, Adult 06/21/2018 Hep B, adult 03/04/2004,10/01/2003,08/12/2003 Influenza, High-dose, Split Virus, Trivalent, Injectable, preservative free 06/30/2024 Influenza, high-dose, quadrivalent 06/08/2023, Moderna Covid-19 Vaccine [...] Pulse 68 01/09/2025 1:20 PM EDT Temperature 36.6 C (97.8 F) 08/22/2024 1:22 PM EST Respiratory Rate 18 01/09/2025 1:20 PM EDT Oxygen Saturation 100% 01/09/2025 1:20 PM EDT Inhaled Oxygen Concentration - - Weight 59.9 kg (132 lb) 01/09/2025 1:20 PM EDT Height 157.5 cm (5' 2 ) 01/09/2025 1:20 PM EDT Body Mass Index 24.14 01/09/2025 1:20 PM EDT Plan of Treatment Health Maintenance Due Date Last Done Comments [facility]-Bone Density Scan 1955 [facility]-Depression Screening 1955 [facility]-Diabetes: Hemoglobin A1C 1955 [facility]-Hepatitis C Screening 1955 [facility]-Medicare Annual Wellness (AWV) 1955 [facility]-/Child/Adol SDOH Screenings 1955 Diabetes: Dental Exam 11/20/1965 [facility]- SDOH Screenings 11/20/1973 [facility]-Adult SDOH Screenings 11/20/1973 [facility]-Pneumococcal Vaccine: 50+ Years (1 of 2 - PCV) 11/20/1974 CT Colonography 11/20/2000 Colonoscopy 11/20/2000 FIT-DNA 11/20/2000 FIT 11/20/2000 FOBT 11/20/2000 Sigmoidoscopy 11/20/2000 [facility]-Colorectal Cancer Screening 11/20/2000 [facility]-Breast Cancer Screening 11/20/2005 [facility]-Zoster Vaccines (1 of 2) 11/20/2005 [facility]-RSV Vaccine: 60+ Years or (1 - Risk 60-74 years 1-dose series) 2015 [facility]-DTaP,Tdap,and Td Vaccines (2 - Td or Tdap) 04/17/2022 04/17/2012 [id number] Vaccine (7 - Moderna risk season) 2024 06/30/2024, 06/08/2023, 06/06/2022, Additional history exists [facility]-Influenza Vaccine (#1) 04/06/202506/30, 06/08/2023, 06/06/2022 [facility]-Hepatitis A Vaccines Aged Out 06/21/2018 No longer eligible based on patient's age to complete this topic HPV Vaccines Aged Out No longer eligi ble based on patient's age to complete this topic [facility]-HIB Vaccines Aged Out No longer e ligible based on patient's age to complete this topic [facility]-IPV Vaccines Aged Out No longer e ligible based on patient's age to complete this topic [facility]-Rotavirus Vaccines Aged Out No lo nger eligible based on patient's age to complete this topic Insurance MEDICARE [place]ICAID-[place] Care Teams Asphalt Heater Tender Relationship Specialty Start Date End Date Maldonado Parker DO [address] [place] [address] PCP - General 04/24/24
--- OUTSIDE RECORDS SUMMARY | 2025-02-20 08:54 | XMS_ITS | Encounter Summary ---
Author Organization Healthcare Address [address] [id number] Care Team Providers Care Pigment Furnace Tender Name Role Phone Maldonado Parker DO Primary Care Provider [phone] Encounter Details Date Type Department Care Team (Latest Contact Info) Description 01/09/2025 Travel Social History Tobacco Use Types Packs/Day [...] documented as of this encounter Care Teams Pigment Furnace Tender Relationship Specialty Start Date End Date Maldonado Parker DO [address] [place] [address] PCP - General 04/24/24 documented as of this encounter
[2025-02-20 09:52] LABS: Hematocrit 32.9 % (37.0-47.0); Hemoglobin 10.9 g/dL (12.2-16.2); Immature Granulocytes % 0.4 %; Mean Corpuscular HGB Conc 33.1 g/dL (31.8-35.4); Mean Corpuscular Hemoglobin 29.9 pg (27.0-31.2); Mean Corpuscular Volume 90.4 fl (81-99); Nucleated Red Blood Cells % 0 %; Platelet Count 240 K/mm3 (142-424); Red Blood Count 3.64 M/mm3 (4.20-5.40); Red Cell Distribution Width-SD 42.8 fL; White Blood Count 10.4 K/mm3 (4.8-10.8)
[2025-02-20 10:25] LABS: Chloride 109 mmol/L (98-107); Sodium 137 mmol/L (136-145)
[2025-02-20 10:26] LABS: Albumin Level 3.8 g/dl (3.5-5.0); Potassium 4.5 mmoL/L (3.5-5.1)
[2025-02-20 10:28] LABS: Blood Urea Nitrogen 33 mg/dl (7-17); Creatinine,Serum 2.80 mg/dl (0.52-1.04); Estimated Glomerular Filt Rate 17 ml/min (>60); GFR (African American) 20 ML/MIN (>60)
[2025-02-20 10:29] LABS: Anion Gap 13.5 mEq/L (5-15); Calcium 8.9 mg/dl (8.4-10.2); Carbon Dioxide 19 mmol/L (22.0-30.0); Glucose 189 mg/dl (74-100); Phosphorous 5.0 mg/dl (2.5-4.5)
== END 2025-02-20 23:59 | disposition home or self-care (01) ==
LOC: LAB 08:50
PROVIDERS: PCP Family Medicine; Visit Provider Student in an Organized Health Care Education/Training Program
DX: N18.4 Chronic kidney disease, stage 4 (severe) (principal); E87.20 Acidosis, unspecified
CPT/HCPCS: 36415; 80069; 85025

== ENCOUNTER 2025-03-27 09:50 | Outpatient (CLI) | payer MEDICARE, MEDICAID, SELFPAY ==
--- OUTSIDE RECORDS SUMMARY | 2025-03-27 09:52 | XMS_ITS | Encounter Summary ---
Author Organization [facility] Address [address] [place] [address] Care Team Providers Care Heat Treating Bluer Name Role Phone Maldonado Parker DO Primary Care Provider [phone] Encounter Details Date Type Department Care Team ([facility] Contact Info) Description 03/23/2025 Telephone [facility] Nephrology, Bone & Mineral Metabolism [address], [address] [place] [address] Mel Hernandez PharmD [address] [facility] [address] [place] [address] Social History Tobacco Use Types [...] encounter Miscellaneous Notes * Telephone Encounter - Mel Aviles PharmD - 03/23/2025 9:24 AM EDT Patient due for repeat labs to monitor H&H given holding Aranesp therapy. Patient reports she can get labs on Sunday, 03/27. Will follow up with patient once labs result. Mel Aviles PharmD, BCACP Clinical Pharmacist [facility] [address] [place] [address] documented in this encounter Plan of Treatment Upcoming Encounters Date Type Department Care Team (Late st Contact Info) Description 06/12/2025 1:40 PM EST Office Visit [facility] [address] [place] [address] Dieter Interiano MD [address] [place] [phone] documented as of this encounter Visit Diagnoses Not on filedocumented in this encounter Additional Health Concerns Assessment Noted Time A fall risk assessment has been complete d for the patient 10/15/2023 2:09 PM EDT A Body Mass Index follow-up plan has been documented for the patient 01/09/2025 1:58 PM EDT documented as of this encounter Care Teams Heat Treating Bluer Relationship Specialty Start Date End Date Maldonado Parker DO [address] [place] [address] PCP - General 04/24/24 documented as of this encounter
--- OUTSIDE RECORDS SUMMARY | 2025-03-27 09:52 | XMS_ITS | Clinical Summary ---
Author Organization Healthcare Address [address] [place] [address] Care Team Providers Care Real Estate Account Executive Name Role Phone Maldonado Parker DO Primary Care Provider [phone] Allergies No known active allergies Medications Multiple [...] BLOOD THINNER 3 Active ergocalciferol 1.25 MG (35221 UT) capsule Take 1 capsule (50,000 Units) [...] Encounters Date Type Department Care Team Description 03/23/2025 Telephone [facility] Nephrology, Bone & Mineral Metabolism [address], [address] [place] [address] DavidMel L, PharmD 02/23/2025 Telephone [facility] Nephrology, Bone & Mineral Metabolism [address], [address] [place] [address] DavidDinaon L, PharmD 02/10/2025 Orders Only [facility] [address] [place] [address] Zaynab So 01/09/2025 1:20 PM EDT Office Visit [facility] [address] [place] [address] Dieter Interiano MD Metabolic acidosis (Primary Dx); CKD (chronic kidney disease) stage 4, GFR 15-29 ml/min ([facility]); Mixed hyperlipidemia; Iron deficiency anemia due to chronic blood loss; Anemia due to chronic kidney disease, unspecified CKD stage; Type 2 diabetes mellitus with stage 4 chronic kidney disease, unspecified whether fpc insulin use ([facility]); Chronic kidney disease-mineral and bone disorder (CKD-MBD); Acute kidney injury superimposed on CKD ([facility]) 01/09/2025 Travel from Last 3 Months Immunizations Immunization Administration [...] 01/09/2025 1:20 PM EDT Plan of Treatment Upcoming Encounters Date Type Department Care Team (Late st Contact Info) Description 06/12/2025 1:40 PM EST Office Visit [facility] [address] [place] [address] Dieter Interiano MD [address] [place] [phone] Health Maintenance Due Date Last Done Comments [facility]-Bone Density Scan 1955 [facility]-Depression Screening 1955 [facility]-Diabetes: Hemoglobin A1C 1955 [facility]-Hepatitis C Screening 1955 [facility]-Medicare Annual Wellness (AWV) 1955 [facility]-Infant/Child/Adol SDOH Screenings 1955 Diabetes: Dental Exam 11/20/1965 [...] (2 - Td or Tdap) 04/17/2022 04/17/2012 [id number] Vaccine (7 - Moderna risk season) 2024 [...] age to complete this topic Insurance MEDICARE Member Subscriber Plan / Payer (Ef fective 2020-Present) Name:Radha Anders Member ID:[id number] Relation to Subscriber:Self Name:Radha Anders Subscriber ID:[id number] Payer ID:MEDICARE Group ID:Not on file Type:Medicare Address[place] [facility] [place] [address] [place] [address] [place] Care Teams Real Estate Account Executive Relationship Specialty Start Date End Date Maldonado Parker DO [address] [place] [address] PCP - General 04/24/24
--- OUTSIDE RECORDS SUMMARY | 2025-03-27 09:52 | XMS_ITS | Encounter Summary ---
Author Organization [facility] Address [address] [id number] Care Team Providers Care Hvac Specialist Name Role Phone Maldonado Parker DO Primary Care Provider [phone] Encounter Details Date Type Department Care Team (Late Contact Info) Description 02/10/2025 Orders Only [address] [address] [place] [address] Zaynab So Social History Tobacco [...] Department Care Team (Late Contact Info) Description 06/12/2025 1:40 PM EST Office Visit [address] [address] [place] [address] Dieter Interiano MD [address] [place] [phone] documented as of this encounter Visit Diagnoses Not on filedocumented in this encounter Additional Health Concerns Assessment Noted Time A fall risk assessment has been complete d for the patient 10/15/2023 2:09 PM EDT A Body Mass Index follow-up plan has been documented for the patient 01/09/2025 1:58 PM EDT documented as of this encounter Care Teams Hvac Specialist Relationship Specialty Start Date End Date Maldonado Parker DO [address] [place] [id number] PCP - General 04/24/24 documented as of this encounter
--- OUTSIDE RECORDS SUMMARY | 2025-03-27 09:52 | XMS_ITS | Encounter Summary ---
Author Organization Healthcare Address [address] [place] [address] Care Team Providers Care Commercial Baker Helper Name Role Phone Maldonado Parker DO Primary Care Provider Encounter Details Date Type Department Care Team ([facility] st Contact Info) Description 02/23/2025 Telephone [facility] Nephrology, Bone & Mineral Metabolism [address] [facility], [address] [place] [address] Mel Hernandez PharmD [address] [place] [address] Social History Tobacco Use Types [...] Telephone Encounter - Mel Aviles PharmD - 02/23/2025 11:39 AM EDT Radha Anders is a 69 y.o. female is a 69 y.o. female with PMH significant for CKD4, hx of hematemesis, anemia, HTN, proteinuria, metabolic acidosis, mild hyperphosphatemia, T2DM. last seen by Dr. Dieter Interiano on 01/09/2025, PharmD last spoke with pt on 12/09. Recent changes: HOLD Aranesp 25mcg Today, I spoke with Radha Anders via telephone to review recent lab results after above changes. She confirms holding Aranesp as instructed by Dr. Interiano. Current Anemia Medication Regimen: Aranesp 25mcg subcutaneously every 28 days (holding) Ferrous Sulfate 325mg daily Relevant Lab Results 02/20/25 Hgb (g/dL) 10.9 Hct (%) 32.9 Assessment/Plan Discussed with Dr. Interiano Anemia - Hgb is now within target range 10-11g/dL at 10.9. - Will continue to hold Aranesp at this time given Hgb holding within goal range - Medication management: HOLD Aranesp 25mcg subcutaneously every 4 weeks CONTINUE Ferrous Sulfate 325mg daily - Hold dose if BP >150/90 and call clinic. - Repeat CBC in ~1 month prior to office visit Radha Anders expressed understanding of plan outlined above and is agreeable. Follow-up in 3-4 weeks and with provider as scheduled. Advised patient to call sooner with any questions or concerns. Mel Aviles, SheldonD, BCACP Clinical Pharmacist Nephrology, Bone & Mineral Metabolism Clinic [place] [address] documented in this encounter Plan of Treatment Upcoming Encounters Date Type Department Care Team (Late st Contact Info) Description 06/12/2025 1:40 PM EST Office Visit [facility] [address] [facility] [address] [address] Dieter Interiano MD [address] [place] [phone] documented as of this encounter Visit Diagnoses Not on filedocumented in this encounter Additional Health Concerns Assessment Noted Time A fall risk assessment has been complete d for the patient 10/15/2023 2:09 PM EDT A Body Mass Index follow-up plan has been documented for the patient 01/09/2025 1:58 PM EDT documented as of this encounter Care Teams Commercial Baker Helper Relationship Specialty Start Date End Date Maldonado Parker DO [address] [place] [address] PCP - General 04/24/24 documented as of this encounter
[2025-03-27 10:08] LABS: Hematocrit 30.4 % (37.0-47.0); Hemoglobin 10.0 g/dL (12.2-16.2); Immature Granulocytes % 0.5 %; Mean Corpuscular HGB Conc 32.9 g/dL (31.8-35.4); Mean Corpuscular Hemoglobin 29.9 pg (27.0-31.2); Mean Corpuscular Volume 91.0 fl (81-99); Nucleated Red Blood Cells % 0 %; Platelet Count 253 K/mm3 (142-424); Red Blood Count 3.34 M/mm3 (4.20-5.40); Red Cell Distribution Width-SD 45.0 fL; White Blood Count 10.0 K/mm3 (4.8-10.8)
--- NOTE | 2025-03-27 10:30 | CA_ITS ---
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 Echo Enhancing Agent Indication: Endocardial border delineation Agent(s) / Amount(s) Used: Definity 2 cc 2D Dimensions LVEF (Don's) 60.30 % F: 54 - 74 LV Volume 77.30 mL F: 46 - 106 LV Volume Index 46.8 mL/m2 F: 29 - 61 LA Volume 29.10 mL LA Volume Index 17.64 mL/m2 (M/F) 16-34 EF AP4 56.70 % EF AP2 65.9 % EF BP 60.3 % GL Strain -17.0 % M-Mode Dimensions RVDd 2.22 cm (0.9-2.6) LA Diam 3.16 cm (1.9-4.0) LVDd 4.51 cm (3.5-5.7) LVDs 3.33 cm (3.5-5.7) IVSd 1.00 cm (0.6-1.1) PWd 1.00 cm (0.6-1.1) EF (Teich) 51.50% FS 26.20% EDV (Teich) 92.90 mL ESV (Teich) 45.10 mL LV Diastology E Decel Time 203 (160-240 msec) E/A Ratio 0.7 Mitral Valve MV E Max Miki. 84.0 (40-130 cm/s) MV A Velocity 124.0 (40-130 cm/s) E/A Ratio 0.68 MV PHT 60.0 ms Left Ventricle The left ventricle is normal size. 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 Left ventricular systolic function is normal. The left ventricular ejection fraction is within the normal range. There is increased left ventricular wall thickness. The LV apical wall is akinetic. Transmitral Doppler flow pattern suggests impaired LV relaxation. No left ventricle thrombus noted on this study. LVEF is 55% Right Ventricle The right ventricle is normal size. The right ventricular systolic function is normal. Atria The left atrium is mildly dilated. The right atrium is mildly dilated. There is no color Doppler evidence of interatrial shunt. Aortic Valve The aortic valve is mildly thickened. There is no hemodynamically significant aortic valvular stenosis. Trace aortic regurgitation is present. Mitral Valve The mitral valve is normal in structure. No evidence of mitral valve stenosis. Mild mitral regurgitation is present. Tricuspid Valve The tricuspid valve leaflets are thin and pliable. Trace tricuspid regurgitation. There is insufficient TR jet to estimate RVSP. Pulmonic Valve The pulmonary valve is grossly normal in structure. Trace pulmonic valve regurgitation is present. Great Vessels The aortic root is normal in size. IVC is normal in size and collapses >50% with inspiration. Pericardium There is no pericardial effusion. Other Information Study Quality: Fair Conclusion Normal biventricular systolic function. Apical akinesis is present. 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 Mild biatrial dilation. Mild MR. Electronically signed by : Shanti Camilo MD 03/29/2025 14:29:12
[2025-03-27] MEDS: DEFINITY US ECHO CONTRAST 2ML INJ 2 MG IV (11:13)
== END 2025-03-27 23:59 | disposition home or self-care (01) ==
LOC: RT 09:50
PROVIDERS: Student in an Organized Health Care Education/Training Program; PCP Family Medicine; Visit Provider Physician Assistant
DX: I34.0 Nonrheumatic mitral (valve) insufficiency (principal); I13.10 Hypertensive heart and chronic kidney disease without heart failure, with stage 1 through stage 4 chronic kidney disease, or unspecified chronic kidney disease; N18.4 Chronic kidney disease, stage 4 (severe); D63.1 Anemia in chronic kidney disease; I25.10 Atherosclerotic heart disease of native coronary artery without angina pectoris; R93.1 Abnormal findings on diagnostic imaging of heart and coronary circulation; Z86.79 Personal history of other diseases of the circulatory system
CPT/HCPCS: 36415; 85025; 93306; Q9957

== ENCOUNTER 2025-04-24 11:08 | Outpatient (CLI) | payer MEDICARE, MEDICAID, SELFPAY ==
--- OUTSIDE RECORDS SUMMARY | 2025-04-24 11:11 | XMS_ITS | Encounter Summary ---
Author Organization Healthcare Address [address] [place] [address] Care Team Providers Care Disposal Worker Name Role Phone Maldonado Parker DO Primary Care Provider [phone] Encounter Details Date Type Department Care Team ([facility] st Contact Info) Description 02/23/2025 Telephone [facility] Nephrology, Bone & Mineral Metabolism [address] [facility], [address] [place] [address] Mel Hernandez PharmD [address] [place] [address] Social History Tobacco Use Types [...] Pharmacist Nephrology, Bone & Mineral Metabolism Clinic [facility] [place] [address] documented in this encounter Plan of Treatment Upcoming Encounters Date Type Department Care Team (Late st Contact Info) Description 06/12/2025 1:40 PM EST [facility] [address] [facility] [address] [address] Dieter Interiano MD [address] [place] [phone] documented as of this encounter Visit Diagnoses Not on filedocumented in this encounter Additional Health Concerns Assessment Noted Time A fall risk assessment has been complete d for the patient 10/15/2023 2:09 PM EDT A Body Mass Index follow-up plan has been documented for the patient 01/09/2025 1:58 PM EDT documented as of this encounter Care Teams Disposal Worker Relationship Specialty Start Date End Date Maldonado Parker DO [address] [place] [address] PCP - General 04/24/24 documented as of this encounter
--- OUTSIDE RECORDS SUMMARY | 2025-04-24 11:11 | XMS_ITS | Clinical Summary ---
Author Organization Healthcare Address [address] [place] [address] Care Team Providers Care Air Traffic Coordinator Name Role Phone Maldonado Parker DO Primary Care Provider [phone] Allergies No known active allergies Medications Multiple [...] BLOOD THINNER 3 Active ergocalciferol 1.25 MG (89842 UT) capsule Take 1 capsule (50,000 Units) [...] Encounters Date Type Department Care Team Description 03/30/2025 Telephone [facility] Bone & Mineral Metabolism [address] [place] [address] Mel Hernandez, PharmD 03/23/2025 [facility]phrology, Bone & Mineral Metabolism [address], [address] [place] [address] Mel Hernandez, PharmD 02/23/2025 [facility] Nephrology, Bone & Mineral Metabolism [address] [facility], [address] [place] [address] Mel Hernandez, PharmD 02/10/2025 Orders Only [facility] [address] [place] [address] Zaynab So from Last 3 Months Immunizations Immunization Administration [...] Description 06/12/2025 1:40 PM EST Office Visit [facility] [address] [place] [address] Dieter Interiano MD [address] [place] [phone] Health Maintenance Due Date Last Done Comments [facility]-Bone Density Scan 1955 [facility]-Depression Screening 1955 [facility]-Diabetes: Hemoglobin A1C 1955 [facility]-Hepatitis C Screening 1955 [facility]-Medicare Annual Wellness (AWV) 1955 [facility]-Infant/Child/Adol SDOH Screenings [...] (2 - Td or Tdap) 04/17/2022 04/17/2012 [id number] Vaccine (7 - Moderna risk season) 2025 06/30/2024, 06/08/2023, 06/06/2022, Additional history exists [facility]-Influenza [...] patient's age to [place] [address] [place] Care Teams Air Traffic Coordinator Relationship Specialty Start Date End Date Maldonado Parker DO [address] [place] [address] PCP - General 04/24/24
--- OUTSIDE RECORDS SUMMARY | 2025-04-24 11:11 | XMS_ITS | Encounter Summary ---
Author Organization [facility] Address [address] [place] [address] Care Team Providers Care Graduate Assistant Name Role Phone Maldonado Parker DO Primary Care Provider [phone] Encounter Details Date Type Department Care Team ([facility] [address] Contact Info) Description 03/23/2025 Telephone [facility] Nephrology, Bone & Mineral Metabolism [address] [facility], [address] [place] [address] Mel Hernandez PharmD [address] [facility] [address] [place] [address] Social History Tobacco Use Types [...] Bone & Mineral Metabolism Clinic [address] [place] [address] documented in this encounter Plan of Treatment Upcoming Encounters Date Type Department Care Team (Late st Contact Info) Description 06/12/2025 1:40 PM EST Office Visit [facility] [address] [place] [address] Dieter Interiano MD [address] [place] [phone] documented as of this encounter Visit Diagnoses Not on filedocumented in this encounter Additional Health Concerns Assessment Noted Time A fall risk assessment has been complete d for the patient 10/15/2023 2:09 PM EDT A Body Mass Index follow-up plan has been documented for the patient 01/09/2025 1:58 PM EDT documented as of this encounter Care Teams Graduate Assistant Relationship Specialty Start Date End Date Maldonado Parker DO [address] [place] [address] PCP - General 04/24/24 documented as of this encounter
--- OUTSIDE RECORDS SUMMARY | 2025-04-24 11:11 | XMS_ITS | Encounter Summary ---
Author Organization Healthcare Address [address] [place] [address] Care Team Providers Care Parts Puller Name Role Phone Maldonado Parker DO Primary Care Provider [phone] Encounter Details Date Type Department Care Team ([facility] st Contact Info) Description 03/30/2025 Telephone [facility] Bone [facility] Mineral Metabolism [address] [facility], [address] [place] [address] Mel Hernandez PharmD [address] [facility] [address] [place] [address] Social History Tobacco Use Types [...] Miscellaneous Notes * Telephone Encounter - Mel Hernandez PharmD - 03/30/2025 11:45 AM EDT Radha Anders is a 69 y.o. female is a 69 y.o. female with PMH significant for CKD4, hx of hematemesis, anemia, HTN, proteinuria, metabolic acidosis, mild hyperphosphatemia, T2DM. last seen by Dr. Dieter Interiano on 01/09/2025, PharmD last spoke with pt on 02/23. Recent changes: HOLD Aranesp 25mcg Today, I spoke with Radha Chago via telephone to review recent lab results after above changes. She confirms holding Aranesp as instructed by Dr. Interiano. Current Anemia Medication Regimen: Aranesp 25mcg subcutaneously every 28 days (holding) Ferrous Sulfate 325mg daily Relevant Lab Results 03/27/25 Hgb (g/dL) 10.0 Hct (%) 30.4 Assessment/Plan Discussed with Dr. Interiano Anemia - Hgb remains within target range 10-11g/dL at 10.0. - Will continue to hold Aranesp at this time given Hgb holding within goal range - Medication management: HOLD Aranesp 25mcg subcutaneously every 4 weeks CONTINUE Ferrous Sulfate 325mg daily - Hold dose if BP >150/90 and call clinic. - Repeat CBC in ~1 month Radha Anders expressed understanding of plan outlined above and is agreeable. Follow-up in 3-4 weeks and with provider as scheduled. Advised patient to call sooner with any questions or concerns. Mel Aviles, SheldonD, BCACP Clinical Pharmacist Nephrology, Bone & Mineral Metabolism Clinic [place] [address] documented in this encounter Plan of Treatment Upcoming Encounters Date Type Department Care Team (Late st Contact Info) Description 06/12/2025 1:40 PM EST Office Visit [facility] [address] [facility] [place] [address], [place] [address] Dieter Interiano MD [address] [place] [phone] documented as of this encounter Visit Diagnoses Not on filedocumented in this encounter Additional Health Concerns Assessment Noted Time A fall risk assessment has been complete d for the patient 10/15/2023 2:09 PM EDT A Body Mass Index follow-up plan has been documented for the patient 01/09/2025 1:58 PM EDT documented as of this encounter Care Teams Parts Puller Relationship Specialty Start Date End Date Maldonado Parker DO [address] [place] [address] PCP - General 04/24/24 documented as of this encounter
[2025-04-24 11:45] LABS: Hematocrit 28.8 % (37.0-47.0); Hemoglobin 9.2 g/dL (12.2-16.2); Immature Granulocytes % 0.4 %; Mean Corpuscular HGB Conc 31.9 g/dL (31.8-35.4); Mean Corpuscular Hemoglobin 29.3 pg (27.0-31.2); Mean Corpuscular Volume 91.7 fl (81-99); Nucleated Red Blood Cells % 0 %; Platelet Count 238 K/mm3 (142-424); Red Blood Count 3.14 M/mm3 (4.20-5.40); Red Cell Distribution Width-SD 46.0 fL; White Blood Count 10.1 K/mm3 (4.8-10.8)
== END 2025-04-24 23:59 | disposition home or self-care (01) ==
LOC: LAB 11:09
PROVIDERS: PCP Family Medicine; Visit Provider Student in an Organized Health Care Education/Training Program
DX: N18.4 Chronic kidney disease, stage 4 (severe) (principal); D63.1 Anemia in chronic kidney disease
CPT/HCPCS: 36415; 85025

== ENCOUNTER 2025-05-29 12:08 | Emergency (ER) | payer MEDICARE, MEDICAID, SELFPAY ==
[2025-05-29] VITALS (18 sets, daily range): BP systolic 93–140; BP diastolic 38–89; PULSE 72–95; RESP 16–18; TEMP 36.3–36.7; O2SAT 94–100; BMI 26.5
--- OUTSIDE RECORDS SUMMARY | 2025-05-29 12:16 | XMS_ITS | Encounter Summary ---
Author Organization Healthcare Address [address] [place] [address] Care Team Providers Care Trading Manager Name Role Phone Maldonado Parker DO Primary Care Provider [phone] Encounter Details Date Type Department Care Team ([facility] st Contact Info) Description 03/30/2025 Telephone [facility] Mineral Metabolism [address] [facility], [address] [place] [address] Mel Hernandez PharmD [address] [facility] [address] [place] [address] Social History Tobacco Use Types [...] Pharmacist Nephrology, Bone & Mineral Metabolism Clinic [facility] [place] [address] documented in this encounter Plan of Treatment Upcoming Encounters Date Type Department Care Team (Late st Contact Info) Description 06/12/2025 1:40 PM EST Office Visit [facility] [address] [facility] [address], [place] [address] Dieter Interiano MD [address] [place] [address] documented as of this encounter Visit Diagnoses Not on filedocumented in this encounter Additional Health Concerns Assessment Noted Time A fall risk assessment has been complete d for the patient 10/15/2023 2:09 PM EDT A Body Mass Index follow-up plan has been documented for the patient 01/09/2025 1:58 PM EDT documented as of this encounter Care Teams Trading Manager Relationship Specialty Start Date End Date Maldonado Parker DO [address] [place] [address] PCP - General 04/24/24 documented as of this encounter
--- OUTSIDE RECORDS SUMMARY | 2025-05-29 12:16 | XMS_ITS | Clinical Summary ---
Author Organization Healthcare Address [address] [place] [address] Care Team Providers Care Development Geologist Name Role Phone Maldonado Parker DO Primary Care Provider [phone] Allergies No known active allergies Medications Multiple [...] BLOOD THINNER 3 Active ergocalciferol 1.25 MG (04787 UT) capsule Take 1 capsule (50,000 Units) [...] tablet 1 tablet (40 mg). 4 Active isosorbide dinitrate (Isordil) 20 MG [...] each day. 90 tablet 3 5 Active sodium bicarbonate 650 MG tabletIndication s:CKD (chronic kidney disease) stage 4, GFR 15-29 ml/min (CMS/HCC),Metabo lic acidosis Take 2 tablets by mouth 2 times a day. 360 tablet 3 5 01/10/20 26 Active darbepoetin carey (Aranesp, Albumin Free,) 25 MCG/0.42ML solution prefilled syringeIndicatio ns:CKD (chronic kidney disease) stage 4, GFR 15-29 ml/min (CMS/HCC),Anemia due to chronic kidney disease, unspecified CKD stage Inject 0.42 mL under the skin every 28 days. 0.42 mL 3 5 Active hydrALAZINE (Apresoline) 50 MG tablet Take 1 tablet by mouth 3 times a day. 270 tablet 2 5 Active Active Problems Problem Noted Date Diagnosed [...] wit h diabetic chronic kidney disease 06/09/2021 Resolved Problems Problem Noted Date Diagnosed Date Resolved Date Acute kidney injury superimposed on CKD 01/09/2025 04/26/2025 Encounters Date Type Department Care Team Description 03/30/2025 Telephone [email or web address] Bone & Mineral Metabolism [address] [place] [address] Mel Hernandez, PharmD 03/23/2025 Telephone [email or web address] Nephrology, Bone & Mineral Metabolism [address] , [address] [place] [address] Mel Hernandez, PharmD from Last 3 Months Immunizations Immunization [...] Description 06/12/2025 1:40 PM EST Office Visit [facility] [address] [place] [address] Dieter Interiano MD [address] [place] [phone] Health Maintenance Due Date Last Done [...] (2 - Td or Tdap) 04/17/2022 04/17/2012 [id number] Vaccine (7 - Moderna risk ) 04/06/2025 06/30/2024, 06/08/2023, 06/06/2022, Additional history exists [facility]-Influenza [...] this topic Insurance MEDICARE [place]ID-[place] Care Teams Development Geologist Relationship Specialty Start Date End Date Maldonado Parker DO [address] [phone] PCP - General 04/24/24
[2025-05-29 12:20] LABS: Hematocrit 28.9 % (37.0-47.0); Hemoglobin 9.3 g/dL (12.2-16.2); Immature Granulocytes % 0.9 %; Mean Corpuscular HGB Conc 32.2 g/dL (31.8-35.4); Mean Corpuscular Hemoglobin 30.2 pg (27.0-31.2); Mean Corpuscular Volume 93.8 fl (81-99); Nucleated Red Blood Cells % 0 %; Platelet Count 272 K/mm3 (142-424); Red Blood Count 3.08 M/mm3 (4.20-5.40); Red Cell Distribution Width-SD 50.0 fL; White Blood Count 13.7 K/mm3 (4.8-10.8)
[2025-05-29 12:23] LABS: Albumin Level 3.9 g/dl (3.5-5.0); Chloride 115 mmol/L (98-107); Potassium 4.0 mmoL/L (3.5-5.1); Sodium 135 mmol/L (136-145)
[2025-05-29 12:26] LABS: Alanine Aminotransferase 17 U/L (12-78); Albumin/Globulin Ratio 1.1 (1.1-1.8); Alkaline Phosphatase 116 U/L (38-126); Aspartate Amino Transferase 26 U/L (14-36); Bilirubin,Total 1.2 mg/dl (0.2-1.3); Blood Urea Nitrogen 52 mg/dl (7-17); Calcium 8.4 mg/dl (8.4-10.2); Creatinine Clearance Estimated 7 mL/min (50-200); Estimated Glomerular Filt Rate 5 ml/min (>60); GFR (African American) 6 ML/MIN (>60); Globulin 3.5 g/dL (1.3-3.2); Glucose 214 mg/dl (74-100); Total Protein,Serum 7.4 g/dl (6.3-8.2)
--- NOTE | 2025-05-29 12:29 | XR_ITS ---
FINAL REPORT CLINICAL HISTORY: short of breath COMPARISON: 08/09/2024 FINDINGS: No acute pulmonary opacity is present. There is no evidence of effusion or pneumothorax. Mediastinum is unremarkable. Heart size is normal. IMPRESSION: No acute abnormality. Reviewed, Interpreted and Dictated by Ilana Ortega MD Transcribed by Taisha Cutler Authenticated and [facility]
--- NOTE | 2025-05-29 12:29 | ED_ITS ---
<Statement entered by Dustin Anders MD - 05/29/25 15:36> I was consulted by the FAUSTINO, and we discussed the complexity of the problems being addressed. I approved the treatment and management plan for this patient's care in the emergency department, thus performing a substantive portion of the medical decision making. Dustin Anders MD, SIMONE, FACEP Discharge Plan Disposition Patient Disposition: Xfer Other Prescriptions Prescriptions: No Action sodium bicarbonate 650 mg tablet 650 mg PO BID famotidine [Pepcid] 40 mg tablet 40 mg PO DAILY Qty: 90 3RF cholecalciferol (vitamin D3) 25 mcg (1,000 unit) tablet 50 mcg PO DAILY Qty: 90 3RF colestipol 1 gram tablet 2 g PO BID Qty: 360 3RF (DME) lancets [FreeStyle Lancets] 28 gauge misc See Rx Instructions .Route Qty: 100 5RF Rx Instructions: bid testing. e11.9 isosorbide dinitrate 20 mg tablet 20 mg PO BID 30 Days Qty: 60 2RF Rx Instructions: allow nitrate-free interval of 12-14 hrs per 24-hr period (DME) Dexcom G7 Sensor Device See Rx Instructions .Route Qty: 1 6RF Rx Instructions: As directed (DME) Dexcom G7 Technical Analyst Misc See Rx Instructions .Route Qty: 1 0RF Rx Instructions: As directed (DME) Omnipod 5 G6-G7 Pods (Gen 5) Cartridge See Rx Instructions .Route Qty: 5 1RF Rx Instructions: As directed (DME) Diabetic Shoes (DME) Misc See Rx Instructions .ROUTE .MEDSUPPLY Qty: 1 0RF Rx Instructions: [facility] Please dispense ONE (1) pair of Diabetic Shoes with inserts hydralazine 50 mg tablet 50 mg PO Patient Comments: TAKE 1 TABLET BY MOUTH THREE TIMES DAILY Aranesp (in polysorbate) 25 mcg/0.42 mL syringe SQ ferrous sulfate 325 mg (65 mg iron) tablet 325 mg PO DAILY metoprolol succinate 100 mg tablet extended release 24 hr 100 mg PO DAILY Qty: 30 2RF mupirocin 2 % ointment 1 applic topical BID 14 Days Qty: 22 1RF amlodipine 5 mg tablet 5 mg PO DAILY Qty: 60 3RF cholecalciferol (vitamin D3) 50 mcg (2,000 unit) capsule 50 mcg PO DAILY Qty: 90 3RF levothyroxine 25 mcg tablet 25 mcg PO DAILYDM Patient Comments: TAKE 1 TABLET BY MOUTH ONCE DAILY atorvastatin 40 mg tablet 40 mg PO HS nitroglycerin 0.3 mg tablet, sublingual 0.3 mg sublingual Q5MINP PRN (Reason: Chest Pain) Rx Instructions: do not exceed 3 doses per episode dapagliflozin propanediol [Farxiga] 5 mg tablet 10 mg PO DAILY 30 Days Qty: 60 0RF diphenoxylate-atropine [Lomotil] 2.5-0.025 mg tablet 1 tab PO Q8HP PRN (Reason: diarrhea) pantoprazole 40 mg Tablet,Delayed Release (Dr/Ec) 40 mg PO DAILY 30 Days Qty: 30 0RF Referrals Follow up/Referrals: Johnny Parnell MD [Primary Care Provider, [facility]] - See instructions Clinical Impressions Clinical Impression: Acute kidney failure Print Language Print Language: Welsh Discharge ED Provider: Dustin Anders General Adult HPI <Chiquita Valle (ED), ETCHED CIRCUIT PROCESSOR - Last Filed: 05/29/25 15:36> General Chief complaint: Weakness Stated complaint: Generalized Illness Time Seen by Provider: 05/29/25 12:20 Mode of Arrival: EMS Source of Information: Patient Description of Symptoms (Recalled from ER Triage Doc. by RN): PT presents by EMS from home for evaluation of feeling unwell x 2 days. PT states she has had generalized weakness. Denies N/V/D. BGL was 267 History of Present Illness HPI narrative: 69-year-old female presents to the ED today via EMS for feeling like her walking is off . Patient has had no nausea, vomiting. She says she has diarrhea all the time. Patient does tell me that she has stage IV renal failure. Patient denies any recent problems. She states that she has just been weak. She says she has had to go to [facility] before for a kidney stone. She does see Dr. Interiano here once every 3 months for her kidneys. She denies recent fevers or chills. She is a diabetic. She does have history of chronic anemia, she has had an NSTEMI in the past, PVD, among others. Related Data Home Medications ?Medication ?Instructions ?Recorded ?Confirmed ferrous sulfate 325 mg (65 mg 325 mg PO DAILY 06/06/23 05/28/25 iron) tablet diphenoxylate-atropine 2.5 1 tab PO Q8HP PRN diarrhea 01/07/24 05/28/25 mg-0.025 mg tablet (Lomotil) sodium bicarbonate 650 mg tablet 650 mg PO BID 4 05/28/25 atorvastatin 40 mg tablet 40 mg PO HS 08/09/24 5 levothyroxine 25 mcg tablet 25 mcg PO DAILYDM 08/09/24 05/28/25 nitroglycerin 0.3 mg sublingual 0.3 mg sublingual Q5MI COMMUNITY HEALTH DIRECTOR PRN Chest 08/09/24 05/28/25 tablet Pain darbepoetin carey in polysorbat 25 mcg SQ 05/21/2505/07 3/25 mcg/0.42 mL in polysorbate injection syringe (Aranesp) hydralazine 50 mg tablet 50 mg PO 05/21/25 05/28/25 Previous Rx's ?Medication ?Instructions ?Recorded pantoprazole 40 mg tablet,delayed 40 mg PO DAILY 30 da ys #30 tabs 01/08/24 release famotidine 40 mg tablet (Pepcid) 40 mg PO DAILY #90 ta bs 06/11/24 cholecalciferol (vitamin D3) 25 50 mcg (2 x 25 mcg (1, 000 unit)) 07/09/24 mcg (1,000 unit) tablet PO DAILY #90 tabs dapagliflozin propanediol 5 mg 10 mg (2 x 5 mg) PO PARAG LY 30 days 08/10/24 tablet (Farxiga) #60 tabs lancets 28 gauge (FreeStyle #100 ea 08/27/24 Lancets) isosorbide dinitrate 20 mg tablet 20 mg PO BID 30 days #60 tabs 08/28/24 blood-glucose sensor (Dexcom G7 #1 ea 09/01/24 Sensor device) blood-glucose,assembly line driver,cont #1 ea 09/01/24 (Dexcom G7 Technical Analyst) insulin pump cart,auto,BT,G6/7 #5 ea 09/01/24 (Omnipod 5 G6-G7 Pods (Gen 5) subcutaneous cartridge) colestipol 1 gram tablet 2 g (2 x 1 gram) PO BID #360 tabs 10/15/24 mupirocin 2 % topical ointment 1 applic topical BID in fection 14 01/28/25 days #22 grams amlodipine 5 mg tablet 5 mg PO DAILY #60 tabs 02/16 cholecalciferol (vitamin D3) 50 50 mcg PO DAILY #90 ca ps 02/16/25 mcg (2,000 unit) capsule metoprolol succinate 100 mg 100 mg PO DAILY #30 tabs 0 03/11/25 tablet,extended release 24 hr Diabetic Shoes (DME) #1 ea 05/28/25 Allergies Allergy/AdvReac Type Severity Reaction Status Date / Time No Known Allergies Allergy Verified 05/28/25 09:13 [facility] <Chiquita Valle (ED), ETCHED CIRCUIT PROCESSOR - Last Filed: 05/29/25 15:36> [facility] Disclaimer: The information contained in this section may have been updated after the patient was seen, as this information can be updated by other users. Medical History Basal cell carcinoma (BCC) Decreased hearing of left ear Skin lesion of face Diarrhea Insulin dependent diabetes mellitus Type 2 diabetes mellitus Syncope Vomiting General weakness JAMAR (acute kidney injury) UTI (urinary tract infection) Calculus of left ureter Lower abdominal pain Change in bowel habits Incurvated nail Generalized abdominal pain Nocturnal diarrhea Chronic diarrhea Diabetic diarrhea Nausea & vomiting Vomiting Vomiting Atypical angina Elevated troponin UTI (urinary tract infection), bacterial Calcaneal spur of left foot Cellulitis of great toe of left foot Diabetic ulcer of toe of left foot associated with type 2 diabetes mellitus Diabetic ulcer of toe of left foot Callus of foot Acquired hammertoes of both feet Claudication Abnormal ankle brachial index (ALESSANDRO) Diabetic foot Onychodystrophy Vitamin D deficiency Anemia History of medication noncompliance Diabetes mellitus Non-STEMI (non-ST elevated myocardial infarction) Abdominal pain Dyspnea CKD stage 3 due to type 2 diabetes mellitus PVD (peripheral vascular disease) Edema of left lower extremity Wound of left foot Elevated bilirubin Typical angina Hypothyroidism Hyperkalemia Type 2 diabetes mellitus with diabetic polyneuropathy, without long-term current use of insulin Decreased pulses in feet Neuropathy Anxiety HLD (hyperlipidemia) Surgical History History of coronary artery stent placement H/O tubal ligation Hx laparoscopic cholecystectomy Family History Other No significant family history Social History Smoking Status: Never smoker alcohol intake: never substance use type: denies use current occupational status: unemployed Travel in the last 8 weeks?: None household members: significant other housing: house current occupational exposures/hazards: No caffeine: Yes Have you lived/traveled outside US in past 30 days?: No Contact w/someone who lives/traveled outside US past 30 days?: No Exposure to someone with infectious disease in past 14 days?: No Do you have a fever (greater than 100.4 F or 38 C)?: No Have you tested positive for COVID-19?: No Exposed to someone with COVID-19 in past 14 days?: No Do you have a sore throat?: No Do you have a cough?: No Do you have any weakness?: No Do you have any diarrhea?: No Are you experiencing any unusual bleeding?: No Do you have any muscle aches/pain?: No Do you have any abdominal pain?: No Are you experiencing loss of taste or smell?: No Other Medical History Have you received the Flu Vaccine for this season: No Have you received the Pneumonia Vaccine: No <Chiquita Valle (ED), ETCHED CIRCUIT PROCESSOR - Last Filed: 05/29/25 15:36> ROS Obtained: Yes Systems reviewed as appropriate & no additional complaints except as documented Constitutional Constitutional: Reports as per HPI Physical Exam <Chiquita Valle (ED), ETCHED CIRCUIT PROCESSOR - Last Filed: 05/29/25 15:36> General General appearance: alert and in no apparent distress Head Head exam: normocephalic Eye Eye exam: Present PERRL and EOMI ENT ENT exam: Present normal oropharynx and mucous membranes moist Neck Neck exam: Present full ROM and trachea midline Respiratory Respiratory exam: Present normal lung sounds bilaterally Cardiovascular Cardiovascular exam: Present regular rate, normal rhythm, normal heart sounds, +S1 and +S2 Abdominal Exam Abdominal exam: Present soft and normal bowel sounds Extremities Exam Extremities exam: Present full ROM and normal capillary refill Neurological Exam Neurological exam: Present alert, oriented X3 and normal gait Skin Skin exam: Present warm, dry and intact Medical Decision Making <Chiquita Valle (ED), ETCHED CIRCUIT PROCESSOR - Last Filed: 05/29/25 15:36> Medical Records Screening: Per USPSTF and CDC recommendations, given the prevalence of disease in our region, it is our hospital?s policy to screen for HIV and viral Hepatitis for all patients aged 18 and over and those with ongoing risk factors. George Inquiry Pt receiving controlled substance: No George was queried for this patient: No Vital Signs: 05/29/25 12:08 05/29/25 12:15 05/29/25 12:30 Temperature 97.4 F L Temperature Source Oral Pulse Rate 86 82 Pulse Rate [Right] 89 Respiratory Rate 18 Blood Pressure 116/58 L 120/60 Blood Pressure [Right Arm] 110/52 L Blood Pressure Mean [Right Arm] 71 Blood Pressure Source [Right Arm] Automatic Cuff Blood Pressure Position [Right Arm] Sitting 02 Sat by Pulse Oximetry 96 99 99 Oxygen Delivery Method Room Air Room Air Room Air 05/29/25 13:00 05/29/25 13:15 05/29/25 13:30 Temperature Temperature Source Pulse Rate 86 88 86 Pulse Rate [Right] Respiratory Rate Blood Pressure 140/60 133/58 L 111/60 Blood Pressure [Right Arm] Blood Pressure Mean [Right Arm] Blood Pressure Source [Right Arm] Blood Pressure Position [Right Arm] 02 Sat by Pulse Oximetry 99 99 98 Oxygen Delivery Method Room Air Room Air Room Air 05/29/25 13:45 Temperature Temperature Source Pulse Rate 82 Pulse Rate [Right] Respiratory Rate Blood Pressure 119/69 Blood Pressure [Right Arm] Blood Pressure Mean [Right Arm] Blood Pressure Source [Right Arm] Blood Pressure Position [Right Arm] 02 Sat by Pulse Oximetry 99 Oxygen Delivery Method Room Air Lab Data Lab Results 05/29/25 12:06: WBC 13.7 H, RBC 3.08 L, Hgb 9.3 L, Hct 28.9 L, MCV 93.8, MCH 30.2, MCHC 32.2, RDW 14.5, Plt Count 272, MPV 11.2 H, Neut % (Auto) 66.5, Lymph % (Auto) 25.4, Cavalier % (Auto) 5.3, Eos % (Auto) 1.2, Baso % (Auto) 0.7, Neut # (Auto) 9.1 H, Lymph # (Auto) 3.5, Cavalier # (Auto) 0.7, Eos # (Auto) 0.2, Baso # (Auto) 0.1, ESR 50 H, Sodium 135 L, Potassium 4.0, Chloride 115 H, Carbon Dioxide < 5 L*, Anion Gap 19.0 H, BUN 52 H, Creatinine 7.80 H, Estimated Creat Clear 7, Estimated GFR 5 L*, Est GFR ( Amer) 6 L*, Glucose 214 H, Calcium 8.4, Magnesium 1.7, Total Bilirubin 1.2, AST 26, ALT 17, Alkaline Phosphatase 116, Total Creatine Kinase 129, C-Reactive Protein 7.0 H, Total Protein 7.4 D, Albumin 3.9, Globulin 3.5 H, Albumin/Globulin Ratio 1.1, Lipase 680 H 05/29/25 12:40: Lactate 1.4, SARS-CoV-2 (PCR) Not detected, Influenza A Untype (PCR) Not detected, Influenza Type B (PCR) Not detected 05/29/25 13:17: VBG pH 7.06 L, VBG pCO2 24.0 L, VBG pO2 95.0 H, VBG HCO3 6.7 L, VBG Total CO2 7.4 L, VBG O2 Saturation 96.0 H, VBG Base Excess -23.6 L, VBG Lactic Acid 1.7 05/29/25 12:06 05/29/25 12:06 Orders (Tests/Meds): ORDERS Category Date Time Status CT abdomen pelvis wo con Stat Cat Scan 05/29/25 12:33 Completed Chest XR -- portable [XR chest portable] Stat Exams 05/29/25 12:29 Completed C-Reactive Protein Stat Lab 05/29/25 12:06 Completed Complete Blood Count Auto Diff Stat Lab 05/29/25 12:06 Completed Comprehensive Metabolic Panel Stat Lab 05/29/25 12:06 Completed Creatine Kinase Stat Lab 05/29/25 12:06 Completed Erythrocyte Sedimentation Rate Stat Lab 05/29/25 12:06 Completed Lactic Acid Stat Lab 05/29/25 12:40 Completed Lipase Stat Lab 05/29/25 12:06 Completed Magnesium Stat Lab 05/29/25 12:06 Completed Rapid PCR Covid and Flu A/B Stat Lab 05/29/25 12:40 Completed Urinalysis and Microscopic Stat Lab 05/29/25 12:32 Ordered Blood Culture Stat Micro 05/29/25 12:58 Received Venous Blood Gas Stat RT 05/29/25 13:17 Completed Medical Decision Narrative: Insert review patient is a 69-year-old female presenting to the emergency department for evaluation of walking is off . Patient is hemodynamically stable and nontoxic-appearing upon arrival, afebrile. Differential diagnosis includes kidney failure, sepsis, among others. Workup will be conducted with hematologic labs, specific imaging, provocative tests. Initial inventions include crystalloid bolus, analgesics, antibiotics. Initial workup reviewed by me hematologic labs are remarkable for 55-year-old male white count of 13.7, pH 7.06, pCO2 24, PaO2 of 95, bicarb 6.7, CO2 less than 5, BUN 52, creatinine 7.80, GFR less than 5, potassium was 4, CRP was 7 lipase 680. Patient needs emergent dialysis. I talked to Dr. Arriaza at [facility] who accepted the patient in transfer. Also talked to Dr. Tiwari who accepted the patient. Patient and I discussed that she needs emergent dialysis. She will be transferred to [facility]. Patient stable at this time. <Dustin Anders MD - Last Filed: 05/29/25 15:37> Vital Signs: 05/29/25 12:08 05/29/25 12:15 05/29/25 12:30 Temperature 97.4 F L Temperature Source Oral Pulse Rate 86 82 Pulse Rate [Right] 89 Respiratory Rate 18 Blood Pressure 116/58 L 120/60 Blood Pressure [Right Arm] 110/52 L Blood Pressure Mean [Right Arm] 71 Blood Pressure Source [Right Arm] Automatic Cuff Blood Pressure Position [Right Arm] Sitting 02 Sat by Pulse Oximetry 96 99 99 Oxygen Delivery Method Room Air Room Air Room Air 05/29/25 13:00 05/29/25 13:15 05/29/25 13:30 Temperature Temperature Source Pulse Rate 86 88 86 Pulse Rate [Right] Respiratory Rate Blood Pressure 140/60 133/58 L 111/60 Blood Pressure [Right Arm] Blood Pressure Mean [Right Arm] Blood Pressure Source [Right Arm] Blood Pressure Position [Right Arm] 02 Sat by Pulse Oximetry 99 99 98 Oxygen Delivery Method Room Air Room Air Room Air 05/29/25 13:45 Temperature Temperature Source Pulse Rate 82 Pulse Rate [Right] Respiratory Rate Blood Pressure 119/69 Blood Pressure [Right Arm] Blood Pressure Mean [Right Arm] Blood Pressure Source [Right Arm] Blood Pressure Position [Right Arm] 02 Sat by Pulse Oximetry 99 Oxygen Delivery Method Room Air Lab Data Lab Results 05/29/25 12:06: WBC 13.7 H, RBC 3.08 L, Hgb 9.3 L, Hct 28.9 L, MCV 93.8, MCH 30.2, MCHC 32.2, RDW 14.5, Plt Count 272, MPV 11.2 H, Neut % (Auto) 66.5, Lymph % (Auto) 25.4, Cavalier % (Auto) 5.3, Eos % (Auto) 1.2, Baso % (Auto) 0.7, Neut # (Auto) 9.1 H, Lymph # (Auto) 3.5, Cavalier # (Auto) 0.7, Eos # (Auto) 0.2, Baso # (Auto) 0.1, ESR 50 H, Sodium 135 L, Potassium 4.0, Chloride 115 H, Carbon Dioxide < 5 L*, Anion Gap 19.0 H, BUN 52 H, Creatinine 7.80 H, Estimated Creat Clear 7, Estimated GFR 5 L*, Est GFR ( Amer) 6 L*, Glucose 214 H, Calcium 8.4, Magnesium 1.7, Total Bilirubin 1.2, AST 26, ALT 17, Alkaline Phosphatase 116, Total Creatine Kinase 129, C-Reactive Protein 7.0 H, Total Protein 7.4 D, Albumin 3.9, Globulin 3.5 H, Albumin/Globulin Ratio 1.1, Lipase 680 H 05/29/25 12:40: Lactate 1.4, SARS-CoV-2 (PCR) Not detected, Influenza A Untype (PCR) Not detected, Influenza Type B (PCR) Not detected 05/29/25 13:17: VBG pH 7.06 L, VBG pCO2 24.0 L, VBG pO2 95.0 H, VBG HCO3 6.7 L, VBG Total CO2 7.4 L, VBG O2 Saturation 96.0 H, VBG Base Excess -23.6 L, VBG Lactic Acid 1.7 Orders (Tests/Meds): ORDERS Category Date Time Status CT abdomen pelvis wo con Stat Cat Scan 05/29/25 12:33 Completed Chest XR -- portable [XR chest portable] Stat Exams 05/29/25 12:29 Completed C-Reactive Protein Stat Lab 05/29/25 12:06 Completed Complete Blood Count Auto Diff Stat Lab 05/29/25 12:06 Completed Comprehensive Metabolic Panel Stat Lab 05/29/25 12:06 Completed Creatine Kinase Stat Lab 05/29/25 12:06 Completed Erythrocyte Sedimentation Rate Stat Lab 05/29/25 12:06 Completed Lactic Acid Stat Lab 05/29/25 12:40 Completed Lipase Stat Lab 05/29/25 12:06 Completed Magnesium Stat Lab 05/29/25 12:06 Completed Rapid PCR Covid and Flu A/B Stat Lab 05/29/25 12:40 Completed Urinalysis and Microscopic Stat Lab 05/29/25 12:32 Ordered Blood Culture Stat Micro 05/29/25 12:58 Received Venous Blood Gas Stat RT 05/29/25 13:17 Completed Critical Care <Chiquita BARKER)HARRIET - Last Filed: 05/29/25 15:36> Critical Care Time Critical Care Time: Yes Attestation: On 05/29/25, the high probability of a clinically significant, sudden or life threatening deterioration of the following system(s) required my full and direct attention, intervention and personal management. The time I documented below is in addition to time spent performing reported procedures but includes the following listed in this critical care notation. Total Time Total Critical Care Time: 15 <Dustin Anders MD - Last Filed: 05/29/25 15:37> Total Time Total Critical Care Time: 35
[2025-05-29 12:30] LABS: Anion Gap 19.0 mEq/L (5-15); Carbon Dioxide < 5 mmol/L (22.0-30.0)
[2025-05-29 12:31] LABS: Creatinine,Serum 7.80 mg/dl (0.52-1.04)
--- NOTE | 2025-05-29 12:33 | CT_ITS ---
FINAL REPORT TECHNIQUE: Noncontrast exam This study was performed with techniques to keep radiation doses as low as reasonably achievable, (ALARA). Individualized dose reduction techniques using automated exposure control or adjustment of mA and/or kV according to the patient''s size were employed. CLINICAL HISTORY: nausea COMPARISON: 08/09/2024 FINDINGS: Abdomen: Lung bases are clear. Patient is status postcholecystectomy. Liver, spleen, pancreas and adrenal glands have a normal CT appearance in their limited unenhanced state. The kidneys show no stone disease or obstruction. No obvious renal mass is present. No ureteral stones are present. There is no bowel obstruction or bowel wall thickening. Pelvis: The appendix is normal. There is extensive heavily calcified uterine fibroids, similar to prior. No ovarian mass or free fluid is identified. No distal ureteral stones are seen. Bladder is unremarkable. No adenopathy is seen. IMPRESSION: No acute findings. Reviewed, Interpreted and Dictated by Ilana Ortega MD Transcribed by Taisha Cutler Authenticated and [facility]
--- NOTE | 2025-05-29 12:46 | ECG_ITS ---
APPROVED REPORT Exam: Resting ECG HR:84 bpm ECG Measurements Heart Rate 84 AXES AR 207 P 64 QRSd 118 QRS -55 QT 404 T 101 QTc 444 Conclusion SINUS RHYTHM PATTERN CONSISTENT WITH PULMONARY DISEASE INCOMPLETE RIGHT BUNDLE BRANCH BLOCK [90+ ms QRS DURATION, TERMINAL R IN V1/V2, 40+ ms S IN I/aVL/V4/V5/V6] LEFT ANTERIOR FASCICULAR BLOCK [QRS AXIS <= -45, QR IN I, RS IN II] SEPTAL MYOCARDIAL INFARCTION , OF INDETERMINATE AGE [40+ ms Q WAVE IN V1/V2] MODERATE T-WAVE ABNORMALITY, CONSIDER LATERAL ISCHEMIA [-0.1+ mV T-WAVE IN I/aVL/V5/V6] MODERATE T-WAVE ABNORMALITY, CONSIDER INFERIOR ISCHEMIA [-0.1+ mV T-WAVE IN II/aVF] ABNORMAL ECG UNCONFIRMED REPORT Electronically signed by : Manuel Anders, 05/29/2025 15:39:20
[2025-05-29 12:58] LABS: Creatine Kinase 129 U/L (30-135)
[2025-05-29 12:59] LABS: Magnesium 1.7 mg/dl (1.6-2.3)
[2025-05-29 13:00] LABS: Coronavirus 19, PCR Not Detected (NotDetected); Influenza A, PCR Not Detected (NotDetected); Influenza B, PCR Not Detected (NotDetected)
[2025-05-29 13:04] LABS: Lipase 680 U/L (23-300)
[2025-05-29 13:20] LABS: C-Reactive Protein 7.0 mg/L (0-4)
--- NOTE | 2025-05-29 13:20 | PC.NURSE ---
LEANNEG collected and sent to lab at this time. RT Marta notified
[2025-05-29 13:29] LABS: Lactate Venous 1.7 mmol/L (0.4-2.0); VBG HCO3 6.7 mmol/L (23-30); VBG PO2 95.0 mmol/L (28-40)
[2025-05-29 13:31] LABS: VBG PCO2 24.0 mmol/L (35-51); VBG PH 7.06 mmol/L (7.31-7.41)
--- NOTE | 2025-05-29 13:57 | PC.NURSE ---
On the phone with [facility] now per FUEL CELL BINDER Sesarpela for renal failure and emergent dialysis.
--- NOTE | 2025-05-29 14:02 | PC.NURSE ---
[facility]
--- NOTE | 2025-05-29 14:11 | PC.NURSE ---
CROSSCUTTER on phone with environmental emergencies planner at [facility]
--- NOTE | 2025-05-29 15:25 | PC.NURSE ---
attempted to call report to [facility]. stated to call back in 15 minutes
--- NOTE | 2025-05-29 15:45 | PC.NURSE ---
called reported to INGRID Zamora at [facility]
--- NOTE | 2025-05-29 16:15 | PC.NURSE ---
EMS called for transport to [facility]
[2025-05-29 17:13] LABS: Microscopic, Urine URINE MICROSCOPIC (MICROSCOPIC)
[2025-05-29 18:02] LABS: Bilirubin,Urine Negative (Negative); Color,Urine YELLOW (Yellow); Glucose,Urine (UA) Negative (Negative); Ketones,Urine Negative (Negative); Leukocyte Esterase,Urine 3+ (Negative); PH,Urine 5.5 (5.0-8.5); Protein,Urine 2+ (Negative); Specific Gravity, Urine >= 1.030 (1.005-1.030); Urobilinogen,Urine 0.2 EU/dl (0.2)
[2025-05-29 18:09] LABS: RBC,Urine Occasional #/hpf (0-3)
[2025-05-29 18:10] LABS: Bacteria,Urine 4+ /lpf; WBC,Urine 20-50 #/hpf (0-3)
--- NOTE | 2025-05-31 08:20 | PC.NURSE ---
Prelim urine culture faxed to [facility] as the pt was transferred to
== END 2025-05-29 17:07 | disposition other institution (70) ==
PROVIDERS: Nurse Practitioner; Emergency Provider Student in an Organized Health Care Education/Training Program; PCP Family Medicine
DX: N17.9 Acute kidney failure, unspecified (principal); N39.0 Urinary tract infection, site not specified; R53.81 Other malaise; B96.1 Klebsiella pneumoniae [K. pneumoniae] as the cause of diseases classified elsewhere
CPT/HCPCS: 71045; 74176; 80053; 81001; 82550; 82803; 83605; 83690; 83735; 85025; 85651; 86140; 87040; 87086; 87088; 87186; 87636; 93005; 99285

== ENCOUNTER 2025-07-11 19:11 | Emergency (ER) | payer MEDICARE, MEDICAID, SELFPAY ==
[2025-07-11] VITALS (7 sets, daily range): BP systolic 128–186; BP diastolic 68–79; PULSE 74–92; RESP 18; TEMP 36.5–36.6; O2SAT 96–98; BMI 23.1
--- OUTSIDE RECORDS SUMMARY | 2025-07-11 19:19 | XMS_ITS | Encounter Summary ---
Author Organization Healthcare Address [address] [place] [address] Care Team Providers Care Electro Mechanical Assembler Name Role Phone Maldonado Parker DO Primary Care Provider [phone] Encounter Details Date Type Department Care Team ([facility] st Contact Info) Description 06/08/2025 Telephone [facility] [address], [address] [place] [address] Dieter Interiano MD [address] [place] [id number] Social History Tobacco Use Types Packs/Day Years [...] encounter Miscellaneous Notes * Telephone Encounter - Dieter Interiano MD - 06/11/2025 10:37 AM EST Informed patient is starting dialysis during inpatient hospital stay. Attempted to call patient to check on her health status and phone went too voicemail documented in this encounter Plan of Treatment Not on [...] documented as of this encounter Care Teams Electro Mechanical Assembler Relationship Specialty Start Date End Date Maldonado Parker DO [address] [place] [address] PCP - General 04/24/24 documented as of this encounter
--- OUTSIDE RECORDS SUMMARY | 2025-07-11 19:19 | XMS_ITS | Encounter Summary ---
Author Organization Healthcare Address [address] [id number] Care Team Providers Care Welding Setter Name Role Phone Maldonado Parker DO Primary Care Provider [phone] Encounter Details Date Type Department Care Team (Latest Contact Info) Description 06/12/2025 Travel Social History Tobacco Use Types Packs/Day [...] documented as of this encounter Care Teams Welding Setter Relationship Specialty Start Date End Date Maldonado Parker DO [address] [place] [address] PCP - General 04/24/24 documented as of this encounter
--- OUTSIDE RECORDS SUMMARY | 2025-07-11 19:19 | XMS_ITS ---
Laboratory report Created on: June 05, 2025 LIONEL MARSH : 1955 Sex: Female Author Name RIOS ARTIS Organization Unknown PROBLEMS Problems List Code Description RESULTS Laboratory Orders Date Order Code Test 2025-05-31 [id number] UREA NITROGEN, U Laboratory Results Date LOINC Test Value Unit Reference Range Interpre tation 2025-05-31 [id number] UREA NITROGEN, U 139 MG/DL
--- OUTSIDE RECORDS SUMMARY | 2025-07-11 19:19 | XMS_ITS ---
Laboratory report Created on: July 07, 2025 LIONEL MARSH : 1955 Sex: Female Author Organization Unknown PROBLEMS Problems List Code Description RESULTS Laboratory Orders Date Order Code Test 2024-07-23 [id number] THYROID PEROXIDA SE (TPO) AB 2024-07-23 [id number] TRIIODOTHYRONINE (T3), FREE Laboratory Results Date LOINC Test Value Unit Reference Range Interpre tation 2024-07-23 [id number] THYROID PEROXIDA SE (TPO) AB 13 IU/ML 0-34 2024-07-23 [id number] TRIIODOTHYRONINE (T3), FREE 2.2 PG/ML 2.0-4.4
--- OUTSIDE RECORDS SUMMARY | 2025-07-11 19:19 | XMS_ITS | Clinical Summary ---
Author Organization Healthcare Address [address] [place] [address] Care Team Providers Care Snaker Name Role Phone Maldonado Parker DO Primary Care Provider [phone] Allergies No known active allergies Medications Multiple [...] BLOOD THINNER 3 Active ergocalciferol 1.25 MG (51708 UT) capsule Take 1 capsule (50,000 Units) [...] Encounters Date Type Department Care Team Description 06/24/2025 Telephone [facility] [address] [place] [address] Pavel Pavon, PharmD 06/12/2025 Travel 06/08/2025 Telephone [facility] [address], [address] [place] [address] Dieter Interiano MD from Last 3 Months Immunizations Immunization Administration [...] SDOH Screenings 11/20/1973 [facility]-Adult SDOH Screenings 11/20/1973 CT Colonography 11/20/2000 Colonoscopy 11/20/2000 FIT-DNA 11/20/2000 FIT 11/20/2000 FOBT 11/20/2000 Sigmoidoscopy 11/20/2000 [facility]-Colorectal Cancer Screening 11/20/2000 [facility]-Breast Cancer Screening 11/20/2005 [facility]-Zoster Vaccines (1 of 2) 11/20/2005 [facility]-RSV Vaccine: 60+ Years or (1 - Risk 60-74 years 1-dose series) 2015 [facility]-DTaP,Tdap,and Td Vaccines (2 - Td or Tdap) 04/17/2022 04/17/2012 [id number] Vaccine (2024- season) 2025 06/30/2024, 06/08/2023, 06/06/2022, Additional history exists [facility]-Hepatitis A Vaccines Aged Out 06/21/2018 No longer eligible based on patient's age to complete this topic [facility]-Influenza Vaccine Completed 05/21/2025 , 06/30/2024, 06/08/2023, Additional history exists [facility]-Pneumococcal Vaccine: 50+ Years Completed 05/21/2025 HPV Vaccines Aged Out No longer eligi [...] patient's age to complete this topic Insurance MEDICAID-[place] Care Teams Snaker Relationship Specialty Start Date End Date Maldonado Parker DO [address] [place] [address] PCP - General 04/24/24
--- OUTSIDE RECORDS SUMMARY | 2025-07-11 19:19 | XMS_ITS ---
Laboratory report Created on: June 06, 2025 LIONEL MARSH : 1955 Sex: Female Author Organization Unknown PROBLEMS Problems List Code Description RESULTS Laboratory Orders Date Order Code Test 2025-06-02 [id number] HBV RT PCR, DORIAN T (GRAPH) Laboratory Results Date LOINC Test Value Unit Reference Range Interpre tation 2025-06-02 49623-7 HBV IU/ML NOHBV IU/ML
--- OUTSIDE RECORDS SUMMARY | 2025-07-11 19:19 | XMS_ITS ---
Laboratory report Created on: July 07, 2025 LIONEL MARSH : 1955 Sex: Female Author Organization Unknown PROBLEMS Problems List Code Description RESULTS Laboratory Orders Date Order Code Test 2024-07-09 [id number] THYROGLOBULIN AN TIBODY 2024-07-09 [id number] TRIIODOTHYRONINE (T3), FREE Laboratory Results Date LOINC Test Value Unit Reference Range Interpre tation 2024-07-09 8098-6 THYROGLOBULIN ANTIBODY LTTA IU/ML 0.0-0. 9 2024-07-09 3051-0 TRIIODOTHYRONINE (T3), FREE 2.1 PG/ML 2.0-4.4
--- OUTSIDE RECORDS SUMMARY | 2025-07-11 19:19 | XMS_ITS ---
Laboratory report Created on: June 06, 2025 LIONEL MARSH : 1955 Sex: Female Author Organization Unknown PROBLEMS Problems List Code Description RESULTS Laboratory Orders Date Order Code Test 2025-06-03 [id number] HBSAG SCREEN Laboratory Results Date LOINC Test Value Unit Reference Range Interpre tation 2025-06-03 5196-1 HBSAG SCREEN N NEGATIVE
--- OUTSIDE RECORDS SUMMARY | 2025-07-11 19:19 | XMS_ITS ---
Laboratory report Created on: June 06, 2025 LIONEL MARSH : 1955 Sex: Female Author Organization Unknown PROBLEMS Problems List Code Description RESULTS Laboratory Orders Date Order Code Test 2025-06-02 [id number] QFT-TB PLUS (CLI ENT INCUBATED) Laboratory Results Date LOINC Test Value Unit Reference Range Interpre tation 2025-06-02 81105-7 QUANTIFERON TB1 AG VALUE .02 IU/ML 2025-06-02 67225-0 QUANTIFERON TB2 AG VALUE .01 IU/ML 2025-06-02 54634-9 QUANTIFERON NIL VALUE .02 IU/ML 2025-06-02 05773-7 QUANTIFERON G[place] GEN VALUE >10.00 IU/ML 2025-06-02 65465-0 QUANTIFERON-TB G OLD PLUS N NEGATIVE
--- OUTSIDE RECORDS SUMMARY | 2025-07-11 19:19 | XMS_ITS ---
Laboratory report Created on: July 07, 2025 LIONEL MARSH : 1955 Sex: Female Author Organization Unknown PROBLEMS Problems List Code Description RESULTS Laboratory Orders Date Order Code Test 2025-06-03 [id number] HBSAG SCREEN Laboratory Results Date LOINC Test Value Unit Reference Range Interpre tation 2025-06-03 5196-1 HBSAG SCREEN N NEGATIVE
--- OUTSIDE RECORDS SUMMARY | 2025-07-11 19:19 | XMS_ITS ---
Laboratory report Created on: July 07, 2025 LIONEL MARSH : 1955 Sex: Female Author Organization Unknown PROBLEMS Problems List Code Description RESULTS Laboratory Orders Date Order Code Test 2024-08-03 [id number] AEROBE ID + SUSC EPT Laboratory Results Date LOINC Test Value Unit Reference Range Interpre tation 2024-08-03 07965-3 AEROBE ID + SUSCEPT FINAL A 2024-08-03 98548-3 RESULT 1 STAPEP A 2024-08-03 38001-7 ANTIMICROBIAL SUSCEPTIBILITY [facility] [place]
--- NOTE | 2025-07-11 19:20 | ECG_ITS ---
APPROVED REPORT Exam: Resting ECG HR:88 bpm ECG Measurements Heart Rate 88 AXES NH 167 P 9 QRSd 88 QRS -55 QT 356 T 73 QTc 401 Conclusion SINUS RHYTHM LEFT ANTERIOR FASCICULAR BLOCK [QRS AXIS <= -45, QR IN I, RS IN II] ABNORMAL ECG UNCONFIRMED REPORT Normal sinus rhythm. No STEMI Electronically signed by : MIGUEL FERED, 07/11/2025 22:06:14
--- OUTSIDE RECORDS SUMMARY | 2025-07-11 19:20 | XMS_ITS ---
Author Organization [facility] ([facility]) Address [address] [place] [id number] Care Team Providers Care Technology Lab Teacher Name Role Phone Unavailable Unavailable Unavailable Allergies, Adverse Reactions, Alerts Allergy Name Allergy Type Status Severity Reaction(s) Onset Date Inactive Date Treating Clinician Comments No Known Allergies Allergy Active 2025-06 11:55:1 2 Medications Ordered Medication Name Filled Medication Name Start Date Stop Date Current Medication? Ordering Clinician Indication Dosage Frequency Signature (SIG) Comments Components Mircera 2024-08 18:46: 47 Yes [id number] Number of Repeats Allowed: Frequency: SANJAY dosing, every two weeks ondansetron hydrochlori de 2024-08 10:44: 38 Yes [id number] Number of Repeats Allowed: Frequency: Every 4 hours as needed heparin sodium, porcine 2024-08 05:00: 00 Yes [id number] Number of Repeats Allowed: Frequency: Every Dialysis TreatmentD osesOrdere d: Loading Dose 3000 Units 1:1000 Units/mLRo chefornak: Intravenou s Oxygen 2024-08 11:56: 40 Yes [id number] Number of Repeats Allowed: Frequency: As needed Normal Saline Solution 0.9% NaCl 2024-08 11:53: 36 Yes [id number] Number of Repeats Allowed: Frequency: Post-dialy sisDosesOr dered: Arterial Lumen 10 mL Route: Intracathe terDosesOr dered: Venous Lumen 10 mL Route: Intracathe ter Normal Saline Solution 0.9% NaCl 2024-08 11:53: 25 Yes [id number] Number of Repeats Allowed: Frequency: Pre-dialys isDosesOrd ered: Arterial Lumen 10 mL Route: Intracathe terDosesOr dered: Venous Lumen 10 mL Route: Intracathe ter Problems This patient has no known problems. Procedures Procedure Date / Time Performed Performing Clinician Neema king Details Central Venous Catheter (CVC) 2025-06-08 05:00:00 Access Site Chest (Left) Access Use Start Date 2025-06-08 05:00:0 0 DIALYSIS TREATMENT INFORMATION Conventional Hemodialysis Date Type Treatment Start Date Treatment End Date Pre-Treatment Vitals Post-Treatment Vitals Weight Gain BFR DFR Actual UF Dialysis Access Decem 2024 In-Ce nter Hemod ialys is Treat ment 2025-07-10 T10:08:00. 000Z 2025-07-10 T13:35:00. 000Z BP Sitting (Pre-Dialysis) 181/92 mmHg BP Sitting (Post-D ialysis ) 129/ 92 mmHg BP Standing (Pre-Dialysis) 161/85 mmHg BP Standing (P ost-Dialysis) 158/78 mmHg Sitting Heart Rate Pre-Dialysis 70 BPM Sitting Heart Rate Post-Dialysis 80 BPM Standing Heart Rate Pre-Dialysis 70 BPM Standing Heart Rate Post-Dialysis 80 BPM Temperature Pre-Dialysis 98.3 degF Temperature Post -Dialysis 97.9 degF July 08, 2025 In-Center Hemodialysis Treatment [id number]:24:00.000Z 1004-46-69K47:06:34.000Z BP Sitting (Pre-Dialysis) 161/85 mmHg BP Sitting (Post-Dialysis) 132/61 mmHg Concurrent Access: falseCentral Venous Catheter (CVC) Chest (Left) Arterial Sitting Heart Rate Pre-Dialysis 87 BPM BP Standing (Post-Dialysis) 151/65 mmHg Temperature Pre-Dialysis 97.5 degF Sitting Heart Ra te Post-Dialysis 82 BPM Standing Heart Rate Post-Makayla lysis 80 BPM Temperature Post-Dialysis 97 .9 degF July 06, 2025 In-Center Hemodialysis Treatment [id number]:18:00.000Z [id number]:47:57.000Z BP Sitting (Pre-Dialysis) 155/80 mmHg BP Sitting (Post-Dialysis) 164/80 mmHg Concurrent Access: falseCentral Venous Catheter (CVC) Chest (Left) Arterial Sitting Heart Rate Pre-Dialysis 80 BPM BP Standing (Post-Dialysis) 160/85 mmHg Temperature Pre-Dialysis 97.6 degF Sitting Heart Ra te Post-Dialysis 73 BPM Standing Heart Rate Post-Makayla lysis 80 BPM Temperature Post-Dialysis 98 .3 degF July 03, 2025 In-Center Hemodialysis Treatment [id number]:16:00.000Z [id number]:52:08.000Z BP Sitting (Pre-Dialysis) 163/81 mmHg BP Sitting (Post-Dialysis) 124/98 mmHg Concurrent Access: falseCentral Venous Catheter (CVC) Chest (Left) Arterial BP Standing (Pre-Dialysis) 123/87 mmHg BP Standing (P ost-Dialysis) 135/73 mmHg Sitting Heart Rate Pre-Dialysis 65 BPM Sitting Heart Rate Post-Dialysis 60 BPM Standing Heart Rate Pre-Dialysis 66 BPM Standing Heart Rate Post-Dialysis 65 BPM Temperature Pre-Dialysis 97.6 degF Temperature Post -Dialysis 97.9 degF June 30, 2025 In-Center Hemodialysis Treatment [id number]:16:00.000Z [id number]:58:44.000Z BP Sitting (Pre-Dialysis) 137/72 mmHg BP Sitting (Post-Dialysis) 124/99 mmHg Concurrent Access: falseCentral Venous Catheter (CVC) Chest (Left) Arterial Sitting Heart Rate Pre-Dialysis 60 BPM BP Standing (Post-Dialysis) 128/64 mmHg Temperature Pre-Dialysis 97.9 degF Sitting Heart Ra te Post-Dialysis 60 BPM Standing Heart Rate Post-Makayla lysis 60 BPM Temperature Post-Dialysis 97 .9 degF June 28, 2025 In-Center Hemodialysis Treatment [id number]:10:00.000Z [id number]:51:26.000Z BP Sitting (Pre-Dialysis) 112/56 mmHg BP Sitting (Post-Dialysis) 120/63 mmHg Concurrent Access: falseCentral Venous Catheter (CVC) Chest (Left) Arterial Sitting Heart Rate Pre-Dialysis 70 BPM BP Standing (Post-Dialysis) 114/57 mmHg Temperature Pre-Dialysis 98.4 degF Sitting Heart Ra te Post-Dialysis 62 BPM Standing Heart Rate Post-Makayla lysis 62 BPM Temperature Post-Dialysis 97 .5 degF June 26, 2025 In-Center Hemodialysis Treatment [id number]:15:00.000Z [id number]:42:00.000Z BP Sitting (Pre-Dialysis) 167/87 mmHg BP Sitting (Post-Dialysis) 138/69 mmHg Concurrent Access: falseCentral Venous Catheter (CVC) Chest (Left) Arterial Sitting Heart Rate Pre-Dialysis 97 BPM Sitting H eart Rate Post-Dialysis 80 BPM Temperature Pre-Dialysis 98 degF Temperature Post -Dialysis 97.9 degF June 24, 2025 In-Center Hemodialysis Treatment [id number]:20:00.000Z [id number]:54:41.000Z BP Sitting (Pre-Dialysis) 155/86 mmHg BP Sitting (Post-Dialysis) 130/66 mmHg Concurrent Access: falseCentral Venous Catheter (CVC) Chest (Left) Arterial Sitting Heart Rate Pre-Dialysis 68 BPM Sitting H eart Rate Post-Dialysis 66 BPM Temperature Pre-Dialysis 98.2 degF Temperature Post -Dialysis 98 degF June 22, 2025 In-Center Hemodialysis Treatment [id number]:13:00.000Z [id number]:23:11.000Z BP Sitting (Pre-Dialysis) 164/84 mmHg BP Sitting (Post-Dialysis) 119/77 mmHg Concurrent Access: falseCentral Venous Catheter (CVC) Chest (Left) Arterial BP Standing (Pre-Dialysis) 113/88 mmHg BP Standing (P ost-Dialysis) 139/70 mmHg Sitting Heart Rate Pre-Dialysis 86 BPM Sitting Heart Rate Post-Dialysis 80 BPM Standing Heart Rate Pre-Dialysis 88 BPM Standing Heart Rate Post-Dialysis 81 BPM Temperature Pre-Dialysis 98.3 degF Temperature Post -Dialysis 98.3 degF June 19, 2025 In-Center Hemodialysis Treatment [id number]:15:00.000Z [id number]:47:38.000Z BP Sitting (Pre-Dialysis) 151/70 mmHg BP Sitting (Post-Dialysis) 137/71 mmHg Concurrent Access: falseCentral Venous Catheter (CVC) Chest (Left) Arterial BP Standing (Pre-Dialysis) 150/77 mmHg BP Standing (P ost-Dialysis) 140/71 mmHg Sitting Heart Rate Pre-Dialysis 80 BPM Sitting Heart Rate Post-Dialysis 80 BPM Standing Heart Rate Pre-Dialysis 80 BPM Standing Heart Rate Post-Dialysis 80 BPM Temperature Pre-Dialysis 98.2 degF Temperature Post -Dialysis 97.9 degF June 17, 2025 In-Center Hemodialysis Treatment [id number]:19:00.000Z [id number]:53:45.000Z BP Sitting (Pre-Dialysis) 119/61 mmHg BP Sitting (Post-Dialysis) 132/72 mmHg Concurrent Access: falseCentral Venous Catheter (CVC) Chest (Left) Arterial Sitting Heart Rate Pre-Dialysis 69 BPM BP Standing (Post-Dialysis) 161/88 mmHg Temperature Pre-Dialysis 98.4 degF Sitting Heart Ra te Post-Dialysis 66 BPM Standing Heart Rate Post-Makayla lysis 70 BPM Temperature Post-Dialysis 97 .9 degF June 15, 2025 In-Center Hemodialysis Treatment [id number]:17:00.000Z [id number]:05:50.000Z BP Sitting (Pre-Dialysis) 147/72 mmHg BP Sitting (Post-Dialysis) 152/75 mmHg Concurrent Access: falseCentral Venous Catheter (CVC) Chest (Left) Arterial BP Standing (Pre-Dialysis) 136/68 mmHg BP Standing (P ost-Dialysis) 152/74 mmHg Sitting Heart Rate Pre-Dialysis 60 BPM Sitting Heart Rate Post-Dialysis 60 BPM Standing Heart Rate Pre-Dialysis 62 BPM Standing Heart Rate Post-Dialysis 62 BPM Temperature Pre-Dialysis 98.3 degF Temperature Post -Dialysis 98.3 degF June 12, 2025 In-Center Hemodialysis Treatment [id number]:03:00.000Z [id number]:41:22.000Z BP Sitting (Pre-Dialysis) 120/65 mmHg BP Sitting (Post-Dialysis) 133/70 mmHg Concurrent Access: falseCentral Venous Catheter (CVC) Chest (Left) Arterial Sitting Heart Rate Pre-Dialysis 60 BPM BP Standing (Post-Dialysis) 106/64 mmHg Temperature Pre-Dialysis 97.9 degF Sitting Heart Ra te Post-Dialysis 70 BPM Standing Heart Rate Post-Makayla lysis 62 BPM Temperature Post-Dialysis 97 .6 degF June 10, 2025 In-Center Hemodialysis Treatment [id number]:18:34.000Z [id number]:54:24.000Z BP Sitting (Pre-Dialysis) 156/84 mmHg BP Sitting (Post-Dialysis) 148/76 mmHg Concurrent Access: falseCentral Venous Catheter (CVC) Chest (Left) Arterial Sitting Heart Rate Pre-Dialysis 68 BPM BP Standing (Post-Dialysis) 143/76 mmHg Temperature Pre-Dialysis 97.5 degF Sitting Heart Ra te Post-Dialysis 69 BPM Standing Heart Rate Post-Makayla lysis 66 BPM Temperature Post-Dialysis 98 .2 degF DIALYSIS ORDER Dialysis Procedure Orders Type of Dialysis Procedure Order Order Date/Time Observations In-Center Hemodialysis Treatment [facility] r 2024 Target Weight 60.5 kg Dialysate Flow Rate 500 mL/min Blood Flow Rate 400 mL/min Treatment Time 210 min(total) Max UF Rate 10 mL/kg/hr dialysate_temp 37 C BiCarb Dialysate BiCarbonate 36 mEq/L Access Concurrent No Arterial Access [facility] (CVC) (Chest (Left)) Venous Access [facility] (CVC) (Chest (Left)) Dialyzer [employer]ius Optiflux F 160NR 1025 treatment_[email or web address] Dialysate Bath Potassium Potassium 3 mEq /L Dialysate Bath Calcium Calcium 2.5 mEq/L Results Adequacy Description Draw Date Result/Unit Status Ref Range Result Comments BUN/CREAT 2025-07-07 20:31:59 6.8 Calc F 8.2-46.0 Creatinine [Mass/volume] in Serum or Plasma 2025-07-07 20:31:17 3.65 mg/dL F 0.5-1.1 Urea nitrogen [Mass/volume] in Serum or Plasma 2025-07-07 20:31:17 25 mg/dL F 9.0-23.0 BUN/CREAT 2025-07-01 17:09:05 4.4 Calc F 8.2-46.0 Urea nitrogen [Mass/volume] in Serum or Plasma 2025-07-01 17:08:11 15 mg/dL F 9.0-23.0 Creatinine [Mass/volume] in Serum or Plasma 2025-07-01 17:08:11 3.39 mg/dL F 0.5-1.1 BUN/CREAT 2025-06-23 16:07:19 4.5 Calc F 8.2-46.0 Urea nitrogen [Mass/volume] in Serum or Plasma 2025-06-23 16:06:24 18 mg/dL F 9.0-23.0 Creatinine [Mass/volume] in Serum or Plasma 2025-06-23 16:06:24 4.02 mg/dL F 0.5-1.1 BUN/CREAT 2025-06-17 02:16:01 6.7 Calc F 8.2-46.0 KRU-UREA CLR UR 2025-06-17 02:16:01 1.73 mL/min F Urea nitrogen [Mass/volume] in Serum or Plasma 2025-06-17 02:15:16 25 mg/dL F 9.0-23.0 Creatinine [Mass/volume] in Serum or Plasma 2025-06-17 02:15:16 3.74 mg/dL F 0.5-1.1 Urea nitrogen [Mass/volume] in Urine 2025-06-16 17:47:13 140 mg/dL F COLLECTION TIME FOR URINE 2025-06-15 19:41:48 1440 min F TOTAL VOLUME-24 HR URINE 2025-06-15 19:41:48 400 mL F BUN/CREAT 2025-06-14 00:27:11 6.1 Calc F 8.2-46.0 Urea nitrogen [Mass/volume] in Serum or Plasma 2025-06-14 00:26:20 23 mg/dL F 9.0-23.0 Creatinine [Mass/volume] in Serum or Plasma 2025-06-14 00:26:20 3.78 mg/dL F 0.5-1.1 URR% 2025-06-11 23:56:05 77 % F DIALYZER FLOW-QD 2025-06-11 23:56:05 503 mL/min F Dialyzer ABIMAEL 2025-06-11 23:56:05 1025 Calc F LENGTH OF DIALYSIS 2025-06-11 23:56:05 211 min F PATIENT AGE 2025-06-11 23:56:05 69 Years F BSA OVIDIO 2025-06-11 23:56:05 1.58 sq m F WEIGHT - POST DAY 1 2025-06-11 23:56:05 62 kg F WEIGHT - PRE DAY 1 2025-06-11 23:56:05 63.2 kg F HEIGHT IN INCHES 2025-06-11 23:56:05 60 Inches F WEIGHT (KG) 2025-06-11 23:56:05 61.5 kg F PRESCRIBED DAYS/WEEK 2025-06-11 23:56:05 3 Day/Wk F VT (KT/V TX VOL) 2025-06-11 23:56:05 34.6 L F VM (KT/V MEAN VOL) 2025-06-11 23:56:05 34.6 F Residual kt/v 2025-06-11 23:56:05 F KT/V PRESCRIBED 2025-06-11 23:56:05 2.21 F Total Kt/V 2025-06-11 23:56:05 1.56 F nPCR 2025-06-11 23:56:05 0.38 G/KG/D F AMPUTATE FACTOR 2025-06-11 23:56:05 0 F TBW (Yap) 2025-06-11 23:56:05 29.48 Liters F spKt/V 2025-06-11 23:56:05 1.56 F eKt/V 2025-06-11 23:56:05 1.32 F stdKt/V (DIAL) 2025-06-11 23:56:05 N/A F Std Renal KT/V 2025-06-11 23:56:05 N/A F stdKT/V Total 2025-06-11 23:56:05 N/A F TOTAL HOURS/WEEK DIALYSIS 2025-06-11 23:56:05 3 hrs F BLOOD FLOW-QWB 2025-06-11 23:56:05 400 F CURRENT KRU 2025-06-11 23:56:05 F CRE CLR UR/BSA 2025-06-11 23:55:14 0 mL/min F 75.0-115.0 Urea nitrogen [Mass/volume] in Serum or Plasma 2025-06-11 23:54:23 43 mg/dL F 9.0-23.0 Creatinine [Mass/volume] in Serum or Plasma 2025-06-11 23:54:23 4.15 mg/dL F 0.5-1.1 Urea nitrogen [Mass/volume] in Serum or Plasma --post dialysis 2025-06-11 21:58:28 10 mg/dL F 9.0-23.0 COLLECTION TIME FOR URINE 2025-06-10 20:18:36 1440 min F TOTAL VOLUME-24 HR URINE 2025-06-10 20:18:36 0 mL F BODY WEIGHT (LBS) 2025-06-10 20:18:36 61.5 lbs F BUN/CREAT KRU-UREA CLR UR Anemia Description Draw Date Result/Unit Status Ref Range Result Comments HCT CALC HGBX3 2025-07-08 06:43:44 30.3 % F 37.0-47.0 Hemoglobin [Mass/volume] in Blood 2025-07-08 06:43:12 10.1 g/dL F 12.0-16.0 HCT CALC HGBX3 2025-07-04 15:35:52 27.6 % F 37.0-47.0 Hemoglobin [Mass/volume] in Blood 2025-07-04 15:35:11 9.2 g/dL F 12.0-16.0 HCT CALC HGBX3 2025-07-01 22:33:30 see comments F 37.0-47.0 Unable to Calculate. Hemoglobin [Mass/volume] in Blood 2025-07-01 22:32:58 F RECOLLECT - OUTDATED SPECIMEN HCT CALC HGBX3 2025-06-23 23:29:12 30.3 % F 37.0-47.0 Hemoglobin [Mass/volume] in Blood 2025-06-23 23:28:13 10.1 g/dL F 12.0-16.0 HCT CALC HGBX3 2025-06-17 00:20:49 30.9 % F 37.0-47.0 Hemoglobin [Mass/volume] in Blood 2025-06-17 00:20:06 10.3 g/dL F 12.0-16.0 HCT CALC HGBX3 2025-06-14 00:31:19 30.9 % F 37.0-47.0 Hemoglobin [Mass/volume] in Blood 2025-06-14 00:30:13 10.3 g/dL F 12.0-16.0 IRON SATURATION 2025-06-12 01:17:53 17 % F 16.0-46.0 TIBC 2025-06-12 01:17:53 224 ug/dL F 250.0-425.0 Iron [Mass/volume] in Serum or Plasma 2025-06-12 01:16:25 37 ug/dL F 50.0-170.0 Iron binding capacity.unsaturated [Mass/volume] in Serum or Plasma 2025-06-12 01:16:25 187 ug/dL F 80.0-375.0 Ferritin [Mass/volume] in Serum or Plasma 2025-06-12 00:28:15 177 ng/mL F 10.0-291.0 Comorbidities Description Draw Date Result/Unit Status Ref Range Result Comments Hemoglobin A1c/Hemoglobin.total in Blood 2025-06-12 03:18:21 6.7 %A1c F 0.0-5.6 FluidBP Description Draw Date Result/Unit Status Ref Range Result Comments Sodium [Moles/volume] in Serum or Plasma 2025-07-08 07:54:36 137 mEq/L F 132.0-146.0 Sodium [Moles/volume] in Serum or Plasma 2025-07-02 03:04:51 135 mEq/L F 132.0-146.0 Sodium [Moles/volume] in Serum or Plasma 2025-06-23 17:09:06 136 mEq/L F 132.0-146.0 Sodium [Moles/volume] in Serum or Plasma 2025-06-17 06:17:03 137 mEq/L F 132.0-146.0 Sodium [Moles/volume] in Serum or Plasma 2025-06-14 07:56:24 138 mEq/L F 132.0-146.0 Sodium [Moles/volume] in Serum or Plasma 2025-06-12 01:16:25 133 mEq/L F 132.0-146.0 General Description Draw Date Result/Unit Status Ref Range Result Comments Chloride [Moles/volume] in Serum or Plasma 2025-07-08 07:54:36 107 mEq/L F 99.0-109.0 Chloride [Moles/volume] in Serum or Plasma 2025-07-02 03:04:51 102 mEq/L F 99.0-109.0 Chloride [Moles/volume] in Serum or Plasma 2025-06-23 17:09:06 102 mEq/L F 99.0-109.0 Chloride [Moles/volume] in Serum or Plasma 2025-06-17 06:17:03 101 mEq/L F 99.0-109.0 Chloride [Moles/volume] in Serum or Plasma 2025-06-14 07:56:24 101 mEq/L F 99.0-109.0 Alanine aminotransferase [Enzymatic activity/volume] in Serum or Plasma 2025-06-11 23:54:23 22 U/L F 10.0-49.0 Aluminum [Mass/volume] in Serum or Plasma 2025-06-11 18:16:38 10 ug/L F 0.0-9.0 Chloride [Moles/volume] in Serum or Plasma MineralBone Disorder Description Draw Date Result/Unit Status Ref Range Result Comments 25-Hydroxyvitamin D3+25-Hydroxyvitamin D2 [Mass/volume] in Serum or Plasma 2025-06-12 08:17:05 29 ng/mL F CA CORRECTED 2025-06-12 01:19:19 8.7 mg/dL F CA/PHOS PRODUCT 2025-06-12 01:17:53 46.4 Calc F 21.0-53.0 CA*PO4 CORRCTD 2025-06-12 01:17:53 46.9 Calc F 21.0-53.0 Calcium [Mass/volume] in Serum or Plasma 2025-06-12 01:16:25 8.6 mg/dL F 8.7-10.4 Parathyrin.intact [Mass/volume] in Serum or Plasma 2025-06-12 00:28:15 222 pg/mL F 18.0-80.0 Phosphate [Mass/volume] in Serum or Plasma 2025-06-11 23:54:23 5.4 mg/dL F 2.4-5.1 Nutrition Description Draw Date Result/Unit Status Ref Range Result Comments Potassium [Moles/volume] in Serum or Plasma 2025-07-08 07:54:36 4.8 mEq/L F 3.5-5.5 Bicarbonate [Moles/volume] in Serum or Plasma 2025-07-07 20:31:17 23 mEq/L F 20.0-31.0 Potassium [Moles/volume] in Serum or Plasma 2025-07-02 03:04:51 5.1 mEq/L F 3.5-5.5 Bicarbonate [Moles/volume] in Serum or Plasma 2025-07-01 17:08:11 25 mEq/L F 20.0-31.0 Potassium [Moles/volume] in Serum or Plasma 2025-06-23 17:09:06 4.8 mEq/L F 3.5-5.5 Bicarbonate [Moles/volume] in Serum or Plasma 2025-06-23 16:06:24 25 mEq/L F 20.0-31.0 Potassium [Moles/volume] in Serum or Plasma 2025-06-17 06:17:03 4.2 mEq/L F 3.5-5.5 Bicarbonate [Moles/volume] in Serum or Plasma 2025-06-17 02:15:16 25 mEq/L F 20.0-31.0 Potassium [Moles/volume] in Serum or Plasma 2025-06-14 07:56:24 3.7 mEq/L F 3.5-5.5 Bicarbonate [Moles/volume] in Serum or Plasma 2025-06-14 00:26:20 27 mEq/L F 20.0-31.0 Folate [Mass/volume] in Serum or Plasma 2025-06-12 08:17:05 6.4 ng/mL F See_Comment [Automated [email or web address]] The system which generated this result transmitted reference range: -5.5. The reference range was not used to interpret this result as normal/abnormal. Cobalamin (Vitamin B12) [Mass/volume] in Serum or Plasma 2025-06-12 08:17:05 505 pg/mL F 211.0-911.0 LDL-CHOLESTEROL 2025-06-11 23:55:14 29 mg/dL F 0.0-99.0 VLDL-CHOL(CALC) 2025-06-11 23:55:14 28 mg/dL F 0.0-29.0 CHOL/HDL RATIO 2025-06-11 23:55:14 2 Calc F 3.3-5.0 Albumin [Mass/volume] in Serum or Plasma by Bromocresol green (BCG) dye binding method 2025-06-11 23:54:23 3.9 g/dL F 3.4-4.8 Cholesterol [Mass/volume] in Serum or Plasma 2025-06-11 23:54:23 115 mg/dL F 0.0-199.0 Protein [Mass/volume] in Serum or Plasma 2025-06-11 23:54:23 140 mg/dL F 0.0-149.0 Cholesterol in HDL [Mass/volume] in Serum or Plasma 2025-06-11 23:54:23 58 mg/dL F 40.0-60.0 Bicarbonate [Moles/volume] in Serum or Plasma Potassium [Moles/volume] in Serum or Plasma Encounters No encounter information to report Immunizations Ordered Immunization Name Filled Immunization Name Date Status Comments Refusal Reason TST-PPD intradermal 2025-06-24 10:45:34 TST-PPD intradermal 2025-06-10 19:01:56 Pneumococcal conjugate PCV20, polysaccharide [id number] conjugate, adjuvant, PF 2025-05-21 04:00:00 Influenza Vaccination 2025-05-21 04:00:00 Plan of Treatment Planned Activity Provider Planned Date Details Commen ts [facility] Scheduled [facility] 05:00:00 Hemoglobin [Mass/volume] in Blood [code = 718-7] Future Scheduled Test [facility] 2025-12-04 04:00:00 25-Hydroxyvitamin D3+25-Hydroxyvitamin D2 [Mass/volume] in Serum or Plasma [code = 83622-8] Diagnostic Test Pending [facility] 2025-07-09 06:58:19 Ferritin [Mass/volume] in Serum or Plasma [code = 2276-4] Diagnostic Test Pending [facility] 2025-06-10 12:05:40 Cobalamin (Vitamin B12) [Mass/volume] in Serum or Plasma [code = 2132-9] Diagnostic Test Pending [facility] 2025-06-10 12:04:58 Parathyrin.intact [Mass/volume] in Serum or Plasma [code = 2731-8] Diagnostic Test Pending [facility] 2025-06-10 12:05:08 Alanine aminotransferase [Enzymatic activity/volume] in Serum or Plasma [code = 1742-6] Diagnostic Test Pending [facility] 2025-06-10 12:04:35 Potassium [Moles/volume] in Serum or Plasma [code = 2823-3] Diagnostic Test Pending [facility] 2025-06-10 12:05:25 Sodium [Moles/volume] in Serum or Plasma [code = 2951-2] Diagnostic Test Pending [facility] 2025-06-10 12:00:09 Folate [Mass/volume] in Serum or Plasma [code = 2284-8] Diagnostic Test Pending [facility] 2025-06-10 11:59:30 Creatinine [Mass/volume] in Serum or Plasma [code = 2160-0] Diagnostic Test Pending Christopher Mello 2025-06-10 11:57:57 Albumin [Mass/volume] in Serum or Plasma by Bromocresol green (BCG) dye binding method [code = 15346-0] Diagnostic Test Pending Christopher Mello 2025-06-10 11:58:15 Aluminum [Mass/volume] in Serum or Plasma [code = 5574-9] Diagnostic Test Pending Christopher Mello [facility] 2025-06-30 18:45:43 In-Center Hemodialysis Treatment [code = JNP544]
--- OUTSIDE RECORDS SUMMARY | 2025-07-11 19:20 | XMS_ITS | Encounter Summary ---
Author Organization [facility] Address [address] [place] [address] Care Team Providers Care Cancer Program Consultant Name Role Phone Maldonado Parker DO Primary Care Provider [phone] Encounter Details Date Type Department Care Team (Late st Contact Info) Description 06/24/2025 Telephone [facility] [address] [place] [address] Pavel Pavon, PharmD None None Social History Tobacco Use Types Packs/Day Years [...] as of this encounter Miscellaneous Notes * Clinician Note - Koko Chatman, PharmD - 06/24/2025 4:28 PM EST [facility] Discharge of Clinical Services Specialty Medications and their indications: Aranesp - anemia Reason(s) for discharge: Discontinued/ Completed Therapy Summary of care provided: Benefits investigation, Prior authorization, Education, and Financial assistance Patient's ongoing unmet needs/care: Patient has no ongoing unmet needs. Instructions or referral information provided to the patient/responsible republican: No referral information needed- Medication was stopped Koko valderrama, PharmD 06/24/2025 4:28 PM documented in this encounter Plan of Treatment [...] documented as of this encounter Care Teams Cancer Program Consultant Relationship Specialty Start Date End Date Maldonado Parker DO [address] [place] [address] PCP - General 04/24/24 documented as of this encounter
--- OUTSIDE RECORDS SUMMARY | 2025-07-11 19:20 | XMS_ITS ---
Laboratory report Created on: June 09, 2025 LIONEL MARSH : 1955 Sex: Female Author Organization Unknown PROBLEMS Problems List Code Description RESULTS Laboratory Orders Date Order Code Test 2025-06-05 [id number] HBV CORE AB, IGG /IGM DIFF 2025-06-05 [id number] HEPATITIS B SURF AB QUANT Laboratory Results Date LOINC Test Value Unit Reference Range Interpre tation 2025-06-05 [id number] HEP B CORE AB, IGM N NEGATIVE 2025-06-05 [id number] HEP B CORE AB, TOT N NEGATIVE 2025-06-05 [id number] HEPATITIS B SURF AB QUANT <3.5 MIU/ML IMMUNITY>10 L
--- NOTE | 2025-07-11 19:30 | ED_ITS ---
<Statement entered by Camilo Lnae MD - 07/11/25 23:11> I was consulted by the FAUSTINO, and we discussed the complexity of the problems being addressed. I approve the treatment and management plan for this patient's care in the emergency department, thus performing a substantive portion of the medical decision making. Camilo Lane MD Discharge Plan Disposition Patient Disposition: Home, Self-Care Condition: Good Prescriptions Prescriptions: New cefdinir 300 mg capsule 300 mg PO BID 7 Days Qty: 14 0RF No Action colestipol 1 gram tablet 2 g PO BID Qty: 360 3RF (DME) lancets [FreeStyle Lancets] 28 gauge misc See Rx Instructions .Route Qty: 100 5RF Rx Instructions: bid testing. e11.9 (DME) Diabetic Shoes (DME) Misc See Rx Instructions .ROUTE .MEDSUPPLY Qty: 1 0RF Rx Instructions: [facility] Please dispense ONE (1) pair of Diabetic Shoes with inserts hydralazine 50 mg tablet 50 mg PO Patient Comments: TAKE 1 TABLET BY MOUTH THREE TIMES DAILY Aranesp (in polysorbate) 25 mcg/0.42 mL syringe SQ levothyroxine 25 mcg tablet 25 mcg PO DAILYDM Qty: 90 3RF metoprolol succinate 100 mg tablet extended release 24 hr 100 mg PO DAILY Qty: 30 2RF amlodipine 5 mg tablet 5 mg PO DAILY Qty: 60 3RF cholecalciferol (vitamin D3) 50 mcg (2,000 unit) capsule 50 mcg PO DAILY Qty: 90 3RF atorvastatin 40 mg tablet 40 mg PO HS Qty: 90 0RF isosorbide dinitrate 20 mg tablet 20 mg PO BID 30 Days Qty: 60 2RF Rx Instructions: allow nitrate-free interval of 12-14 hrs per 24-hr period dapagliflozin propanediol [Farxiga] 5 mg tablet 10 mg PO DAILY 30 Days Qty: 60 0RF nitroglycerin 0.3 mg tablet, sublingual 0.3 mg sublingual Q5MINP PRN (Reason: Chest Pain) Rx Instructions: do not exceed 3 doses per episode Referrals Follow up/Referrals: Johnny Parnell MD [Primary Care Provider, Family Practice] - See instructions Activity Restrictions/Add. Instructions Additional Instructions/Restrictions: Please return to the emergency department any worsening signs or symptoms, please take your urinary tract infection medicine (antibiotic) as prescribed, continue to drink rodrigue of liquids and have good otherwise intake. Please continue to keep your appointments with all your doctors. Clinical Impressions Clinical Impression: UTI (urinary tract infection), History of hemodialysis Instructions Patient Instructions: DI for Urinary Tract Infection (UTI) Print Language Print Language: Icelandic Discharge ED Provider: Camilo Lane General Adult HPI General Chief complaint: Urogenital-Female Stated complaint: can't urinate Time Seen by Provider: 07/11/25 19:17 Mode of Arrival: Ambulatory Source of Information: Patient Description of Symptoms (Recalled from ER Triage Doc. by RN): Patient states she has not urinated since 1529. Patient states she still has the urge to urinate, states she just cant. States she is a dialysis patient since 05/29/25. States she just had diaylsis yesterday, advises she has been hydrating proprerly. Denies any trouble urinating since treatments up until today. History of Present Illness HPI narrative: 69-year-old female presents the emergency department with decreased urination/urinary retention/3:30 PM today, she endorses suprapubic pain and urgency, however has not had any urination since 3 or 3:30 PM today. Patient has ESRD hemodialysis with indwelling dialysis catheter in the left upper chest, dialysis MWF, since 05/29/2025, does still produce urine, denies any fever chills chest pain shortness of breath, denies nausea or vomiting, denies constipation diarrhea, denies any dysuria hematuria melena hematochezia hematemesis or hemoptysis, patient is a non-smoker denies any alcohol or drug use, other past medical history consisting of T2DM, anemia of chronic disease, hypertension, coronary artery disease status post 4 stent placements, hypothyroidism, anxiety, hyperlipidemia. Initial triage vitals unremarkable. Please note that above description of symptoms, in this electronic medical record under categorization of recalled from ER triage doctor by RN are reflective of an initial nursing assessment, however, is not reflective of my full history and physical exam that was personally taken and clarified. Consequentially, this preceding description of symptoms, which may include the patient's categorized chief complaint in the EMR, do not reflect my personal clinical impression, and the ultimate description of history of present illness and patient stated complaints should be deferred to this section of the note. Unless stated otherwise or congruent with this section of the note, additional signs, symptoms, or incongruence should be interpreted as inaccurate with my clinical impression. Onset (ago): hour(s) Related Data Home Medications ?Medication ?Instructions ?Recorded ?Confirmed nitroglycerin 0.3 mg sublingual 0.3 mg sublingual Q5MI KITCHEN AIDE PRN Chest 08/09/24 06/18/25 tablet Pain darbepoetin carey in polysorbat 25 mcg SQ 05/21/2506/06/25 mcg/0.42 mL in polysorbate injection syringe (Aranesp) hydralazine 50 mg tablet 50 mg PO 05/21/25 06/18/25 Previous Rx's ?Medication ?Instructions ?Recorded lancets 28 gauge (FreeStyle #100 ea 08/27/24 Lancets) colestipol 1 gram tablet 2 g (2 x 1 gram) PO BID #360 tabs 10/15/24 amlodipine 5 mg tablet 5 mg PO DAILY #60 tabs 02/16 cholecalciferol (vitamin D3) 50 50 mcg PO DAILY #90 ca ps 02/16/25 mcg (2,000 unit) capsule metoprolol succinate 100 mg 100 mg PO DAILY #30 tabs 0 03/11/25 tablet,extended release 24 hr Diabetic Shoes (DME) #1 ea 05/28/25 atorvastatin 40 mg tablet 40 mg PO HS #90 tabs 5 isosorbide dinitrate 20 mg tablet 20 mg PO BID 30 days #60 tabs 06/16/25 levothyroxine 25 mcg tablet 25 mcg PO DAILYDM #90 tabs 06/18/25 dapagliflozin propanediol 5 mg 10 mg (2 x 5 mg) PO PARAG LY 30 days 06/23/25 tablet (Farxiga) #60 tabs cefdinir 300 mg capsule 300 mg PO BID 7 days #14 cap s 07/11/25 Allergies Allergy/AdvReac Type Severity Reaction Status Date / Time No Known Allergies Allergy Verified 06/18/25 09:50 [facility] Disclaimer: The information contained in this section may have been updated after the patient was seen, as this information can be updated by other users. Medical History Basal cell carcinoma (BCC) Decreased hearing of left ear Skin lesion of face Diarrhea Insulin dependent diabetes mellitus Type 2 diabetes mellitus Syncope Vomiting General weakness JAMAR (acute kidney injury) UTI (urinary tract infection) Calculus of left ureter Lower abdominal pain Change in bowel habits Incurvated nail Generalized abdominal pain Nocturnal diarrhea Chronic diarrhea Diabetic diarrhea Nausea & vomiting Vomiting Vomiting Atypical angina Elevated troponin UTI (urinary tract infection), bacterial Calcaneal spur of left foot Cellulitis of great toe of left foot Diabetic ulcer of toe of left foot associated with type 2 diabetes mellitus Diabetic ulcer of toe of left foot Callus of foot Acquired hammertoes of both feet Claudication Abnormal ankle brachial index (ALESSANDRO) Diabetic foot Onychodystrophy Vitamin D deficiency Anemia History of medication noncompliance Diabetes mellitus Non-STEMI (non-ST elevated myocardial infarction) Abdominal pain Dyspnea CKD stage 3 due to type 2 diabetes mellitus PVD (peripheral vascular disease) Edema of left lower extremity Wound of left foot Elevated bilirubin Typical angina Hypothyroidism Hyperkalemia Type 2 diabetes mellitus with diabetic polyneuropathy, without long-term current use of insulin Decreased pulses in feet Neuropathy Anxiety HLD (hyperlipidemia) Surgical History History of coronary artery stent placement H/O tubal ligation Hx laparoscopic cholecystectomy Family History Other No significant family history Social History (Updated 06/18/25 @ 09:44 by AGUSTO Saunders) Smoking Status: Never smoker alcohol intake: never substance use type: denies use current occupational status: unemployed Travel in the last 8 weeks?: None household members: significant other housing: house current occupational exposures/hazards: No caffeine: Yes Have you lived/traveled outside [place] in past 30 days?: No Contact w/someone who lives/traveled outside [place] past 30 days?: No Exposure to someone with infectious disease in past 14 days?: No Do you have a fever (greater than 100.4 F or 38 C)?: No Have you tested positive for COVID-19?: No Exposed to someone with COVID-19 in past 14 days?: No Do you have a sore throat?: No Do you have a cough?: No Do you have any weakness?: No Do you have any diarrhea?: No Are you experiencing any unusual bleeding?: No Do you have any muscle aches/pain?: No Do you have any abdominal pain?: No Are you experiencing loss of taste or smell?: No Other Medical History Have you received the Flu Vaccine for this season: No Have you received the Pneumonia Vaccine: Yes ROS Obtained: Yes All systems reviewed & no additional complaints except as documented Physical Exam General General appearance: alert and in no apparent distress Head Head exam: atraumatic and normocephalic Eye Eye exam: Present PERRL and EOMI ENT ENT exam: Present mucous membranes moist Neck Neck exam: Present normal inspection Chest Chest inspection: Present normal inspection and symmetric chest wall rise Respiratory Respiratory exam: Present normal lung sounds bilaterally; Absent respiratory distress Cardiovascular Cardiovascular exam: Present regular rate and normal rhythm Abdominal Exam Abdominal exam: Present soft and tenderness; Absent guarding, rebound or rigidity Abdominal tenderness: Present suprapubic and mild Extremities Exam Extremities exam: Present normal inspection Neurological Exam Neurological exam: Present alert and oriented X3 Psychiatric Psychiatric exam: Present normal affect Skin Skin exam: Present warm and dry Medical Decision Making Medical Records Medical records reviewed: Yes I reviewed the patient's medical records. Screening: Per USPSTF and CDC recommendations, given the prevalence of disease in our region, it is our hospital?s policy to screen for HIV and viral Hepatitis for all patients aged 18 and over and those with ongoing risk factors. George Inquiry Pt receiving controlled substance: No George was queried for this patient: No Vital Signs: 07/11/25 19:19 07/11/25 19:25 07/11/25 19:30 Temperature 97.7 F 97.9 F Temperature Source Oral Oral Pulse Rate 74 91 H Pulse Rate [Right] 92 H Respiratory Rate 18 18 Blood Pressure 164/78 H 186/78 H Blood Pressure [Right Arm] 164/71 H Blood Pressure Mean [Right Arm] 102 02 Sat by Pulse Oximetry 96 98 97 Oxygen Delivery Method Room Air Room Air 07/11/25 19:46 07/11/25 20:00 07/11/25 20:30 Temperature Temperature Source Pulse Rate 89 85 86 Pulse Rate [Right] Respiratory Rate Blood Pressure 162/68 H 155/79 H 172/78 H Blood Pressure [Right Arm] Blood Pressure Mean [Right Arm] 02 Sat by Pulse Oximetry 98 96 96 Oxygen Delivery Method Lab Data Lab results reviewed: Yes I reviewed the patient's lab results. Lab Results 07/11/25 19:29: VBG pH 7.39, VBG pCO2 41.1, VBG pO2 45.2 H, VBG HCO3 24.5, VBG Total CO2 25.8, VBG O2 Saturation 83.2 H, VBG Base Excess -0.4, VBG Lactic Acid 1.9 07/11/25 19:46: WBC 11.6 H, RBC 3.35 L, Hgb 10.1 L, Hct 31.9 L, MCV 95.2, MCH 30.1, MCHC 31.7 L, RDW 13.8, Plt Count 214, MPV 11.0 H, Neut % (Auto) 60.0, Lymph % (Auto) 30.3, [place] % (Auto) 7.8, Eos % (Auto) 0.9, Baso % (Auto) 0.6, Neut # (Auto) 7.0, Lymph # (Auto) 3.5, [place] # (Auto) 0.9, Eos # (Auto) 0.1, Baso # (Auto) 0.1, Sodium 136, Potassium 4.3, Chloride 97 L, Carbon Dioxide 26, Anion Gap 17.3 H, BUN 9, Creatinine 3.20 H, Estimated Creat Clear 16, Estimated GFR 14 L*, Est GFR ( Amer) 17 L*, Glucose 290 H, Calcium 8.4, Magnesium 1.6, Total Bilirubin 0.8, AST 40 H, ALT 24, Alkaline Phosphatase 101, NT-Pro-B Natriuret Pep 6850 H, Total Protein 7.3, Albumin 4.2, Globulin 3.1, Albumin/Globulin Ratio 1.4, HCV Ab PARUL w/Rflx PCR Qn Negative 07/11/25 21:22: Urine Color Yellow, Urine Appearance Clear, Urine pH 6.5, Ur Specific [place] 1.015, Urine Protein 1+ A, Urine Glucose (UA) 1+, Urine Ketones Negative, Urine Blood Negative, Urine Nitrate Negative, Urine Bilirubin Negative, Urine Urobilinogen 0.2, Ur Leukocyte Esterase 1+ A, Urine RBC None, Urine WBC 3-5, Ur Squamous Epith Cells 5-10, Amorphous Sediment 4+, Urine Bacteria 2+ 07/11/25 19:46 07/11/25 19:46 Orders (Tests/Meds): ED MEDICATIONS Discontinued Medications Generic Name Dose Route Start Last Admin Trade Name Freq PRN Reason Stop Dose Admin Cefdinir 300 mg 12/06/25 22:00 07/11/25 22:03 Cefdinir 300mg Capsule PO 07/11/25 22:01 300 mg ONCE ONE Administration ORDERS Category Date Time Status CT abdomen pelvis wo con Stat Cat Scan 07/11/25 19:39 Completed Complete Blood Count Auto Diff Stat Lab 07/11/25 19:46 Completed Comprehensive Metabolic Panel Stat Lab 07/11/25 19:46 Completed HIV Combo Stat Lab 07/11/25 19:46 Received Hepatitis C Ab Qual. W/ RFX Stat Lab 07/11/25 19:46 Completed Magnesium Stat Lab 07/11/25 19:46 Completed NT Pro Brain Natriuretic Pep. Stat Lab 07/11/25 19:46 Completed Urinalysis and Microscopic Stat Lab 07/11/25 21:22 Completed Urine Culture Stat Micro 07/11/25 21:22 Received VBG [Venous Blood Gas] Stat RT 07/11/25 19:29 Completed Medical Decision Narrative: 69-year-old female presents the emergency department with urinary retention, decreased urination, suprapubic pain since 3:30 PM today, differential diagnose include but not limited to acute UTI, urinary outflow obstruction, cardiac arrhythmia, electrolyte disturbance, acid-base disturbance, nephrolithiasis, ureterolithiasis, hypovolemia, among others. I discussed this patient's case with the attending physician Dr. Lane Will obtain basic laboratory studies, bladder scan, EKG, magnesium level proBNP UA, VBG. Nursing staff notified me that patient has 0 cc in urinary bladder, as well as 18 cc in urinary bladder upon subsequent bladder scan. Because of this we will obtain CT and pelvis without contrast for further evaluation/characterization. CBC is noted for leukocytosis at 11.6, erythrocyte opinion at 3.35, hemoglobin and hematocrit are stable at 10.1/31.9, and actually improved since previous lab draw VBG shows no acid-base disturbance CMP is notable for anion gap at 17.3, creatinine elevation at 3.2, GFR is 14, hyperglycemia 290, minimal AST elevation at 40, proBNP is elevated at 6850, otherwise unremarkable CMP. Reviewed the patient's CT abdomen pelvis without contrast on the corresponding radiologic report, bladder wall thickening from incomplete distention versus cystitis, minor mesenteric panniculitis, mild biliary ductal dilation postcholecystectomy ectasia, if elevated bilirubin follow-up nonemergent MRCP fibroid uterus. 1+ leukocyte esterase, 1+ glucosuria, negative ketonuria, negative nitrites, negative hematuria Her microscopic analysis of the patient's urine is notable for 3-5 WBCs, 5-10 squamous epithelial cells 4+ amorphous sediment, 2+ urine bacteria. Will treat the patient with cefdinir 300 mg p.o. twice daily for 7 days, and will send off urine culture of the patient's urine, patient has dialysis on Sunday, I advised her to continue to keep all appointments as directed, patient given strict return precautions. Patient voiced understanding and agreed with the current treatment plan/discharge plan Critical Care Critical Care Time Critical Care Time: No
--- NOTE | 2025-07-11 19:39 | CT_ITS ---
PROCEDURE INFORMATION: Exam: CT Abdomen And Pelvis Without Contrast Exam date and time: 07/11/2025 8:04 PM Age: 69 years old Clinical indication: Abdominal pain; Additional info: Suprapubic pain urinary retention, dialysis PT TECHNIQUE: Imaging protocol: Computed tomography of the abdomen and pelvis without contrast. Total images: 272 Radiation optimization: All CT scans at this facility use at least one of these dose optimization techniques: automated exposure control; mA and/or kV adjustment per patient size (includes targeted exams where dose is matched to clinical indication); or iterative reconstruction. COMPARISON: CT ABDOMEN PELVIS WO CON 05/29/2025 2:00 PM FINDINGS: Lungs: Mild lower lobe bronchiectasis. Lung bases are clear. Heart: Normal heart size. Coronary arteries: Coronary artery calcifications. Liver: Unremarkable liver with incidental calcified granuloma. Gallbladder and biliary ducts: Status post cholecystectomy. Mild biliary ductal ectasia. Pancreas: Mild pancreatic atrophy. No discrete mass or acute pancreatitis. Spleen: Nonenlarged spleen with adjacent splenules and incidental calcified granuloma. Adrenal glands: Bilateral adrenal thickening/hyperplasia. Kidneys and ureters: No hydronephrosis, nephrolithiasis, or renal mass. Minor bilateral perinephric fat stranding. Stomach and bowel: Unremarkable stomach and duodenum. No ileus or bowel obstruction. Unremarkable small bowel. Mild scattered colonic diverticulosis without diverticulitis. Unremarkable rectum. Appendix: Nonvisualized appendix. Intraperitoneal space: Minor mesenteric panniculitis. No ascites. No free air. Vasculature: Mild atherosclerotic vascular disease. Nonaneurysmal abdominal aorta. Pelvic phleboliths. Lymph nodes: Unremarkable. No enlarged lymph nodes. Urinary bladder: Mild bladder wall thickening. Reproductive: Fibroid uterus with multiple calcified degenerated uterine fibroids. Nonenlarged ovaries. No adnexal mass. Bones/joints: Osteopenia. Moderate degenerative changes of the lumbar spine. Mild degenerative changes bilateral hips. Soft tissues: Very tiny fat containing umbilical hernia. IMPRESSION: 1. Bladder wall thickening from incomplete distension versus cystitis. 2. Minor mesenteric panniculitis. 3. Mild biliary ductal dilatation from post cholecystectomy ectasia. If elevated bilirubin, follow-up nonemergent MRCP. 4. Fibroid uterus.
[2025-07-11 19:52] LABS: Lactate Venous 1.9 mmol/L (0.4-2.0); VBG HCO3 24.5 mmol/L (23-30); VBG PCO2 41.1 mmol/L (35-51); VBG PH 7.39 mmol/L (7.31-7.41); VBG PO2 45.2 mmol/L (28-40)
[2025-07-11 19:53] LABS: Hematocrit 31.9 % (37.0-47.0); Hemoglobin 10.1 g/dL (12.2-16.2); Immature Granulocytes % 0.4 %; Mean Corpuscular HGB Conc 31.7 g/dL (31.8-35.4); Mean Corpuscular Hemoglobin 30.1 pg (27.0-31.2); Mean Corpuscular Volume 95.2 fl (81-99); Nucleated Red Blood Cells % 0 %; Platelet Count 214 K/mm3 (142-424); Red Blood Count 3.35 M/mm3 (4.20-5.40); Red Cell Distribution Width-SD 47.6 fL; White Blood Count 11.6 K/mm3 (4.8-10.8)
[2025-07-11 19:58] LABS: Albumin Level 4.2 g/dl (3.5-5.0); Chloride 97 mmol/L (98-107); Sodium 136 mmol/L (136-145)
[2025-07-11 19:59] LABS: Potassium 4.3 mmoL/L (3.5-5.1)
[2025-07-11 20:01] LABS: Alanine Aminotransferase 24 U/L (12-78); Albumin/Globulin Ratio 1.4 (1.1-1.8); Anion Gap 17.3 mEq/L (5-15); Aspartate Amino Transferase 40 U/L (14-36); Blood Urea Nitrogen 9 mg/dl (7-17); Carbon Dioxide 26 mmol/L (22.0-30.0); Creatinine Clearance Estimated 16 mL/min (50-200); Creatinine,Serum 3.20 mg/dl (0.52-1.04); Estimated Glomerular Filt Rate 14 ml/min (>60); GFR (African American) 17 ML/MIN (>60); Globulin 3.1 g/dL (1.3-3.2); Total Protein,Serum 7.3 g/dl (6.3-8.2)
[2025-07-11 20:02] LABS: Alkaline Phosphatase 101 U/L (38-126); Bilirubin,Total 0.8 mg/dl (0.2-1.3); Calcium 8.4 mg/dl (8.4-10.2); Glucose 290 mg/dl (74-100); Magnesium 1.6 mg/dl (1.6-2.3)
[2025-07-11 20:17] LABS: NT Pro Brain Natriuretic Pep. 6850 pg/mL (0-125)
[2025-07-11 21:30] LABS: Microscopic, Urine URINE MICROSCOPIC (MICROSCOPIC)
[2025-07-11 21:33] LABS: Hepatitis C Ab Qual. W/ RFX NEGATIVE (Negative)
[2025-07-11 21:35] LABS: Bilirubin,Urine Negative (Negative); Color,Urine YELLOW (Yellow); Glucose,Urine (UA) 1+ (Negative); Ketones,Urine Negative (Negative); Leukocyte Esterase,Urine 1+ (Negative); PH,Urine 6.5 (5.0-8.5); Protein,Urine 1+ (Negative); Specific Gravity, Urine 1.015 (1.005-1.030); Urobilinogen,Urine 0.2 EU/dl (0.2)
[2025-07-11 22:01] LABS: Amorphous Sediment,Urine 4+ /lpf; Bacteria,Urine 2+ /lpf
[2025-07-11] MEDS: CEFDINIR 300MG CAPSULE 300 MG PO (22:03)
== END 2025-07-11 22:19 | disposition home or self-care (01) ==
PROVIDERS: Physician Assistant; Emergency Provider Student in an Organized Health Care Education/Training Program; PCP Family Medicine
DX: R10.24 Suprapubic pain (principal); N39.0 Urinary tract infection, site not specified; R33.9 Retention of urine, unspecified; I44.4 Left anterior fascicular block; N18.6 End stage renal disease; E11.22 Type 2 diabetes mellitus with diabetic chronic kidney disease; I12.0 Hypertensive chronic kidney disease with stage 5 chronic kidney disease or end stage renal disease; Z99.2 Dependence on renal dialysis
CPT/HCPCS: 51798; 74176; 80053; 81001; 82803; 83735; 83880; 85025; 86803; 87086; 87389; 93005; 99285